=== PATIENT | male | born 1945 | race Caucasian/White ===

== ENCOUNTER 2019-03-26 16:06 | Inpatient (IN) | payer MEDICARE, OTHER, SELFPAY ==
[2019-03-26 16:06] VITALS: BP 137/66; PULSE 76; RESP 16; TEMP 36.6; O2SAT 97; BMI 28.8
--- NOTE | 2019-03-26 18:05 | CT_ITS ---
STUDY: CT PELVIS WITH CONTRAST REASON FOR EXAM: Male, 73 years old. Penile swelling and redness for 3 days with history of bladder cancer and urostomy RADIATION DOSAGE (If Supplied By Facility): CTDIvol = ( 21.16 ) mGy, DLP = ( 882.41 ) mGycm TECHNIQUE: Transaxial imaging of the pelvis was performed without oral contrast. 100 IV Isovue 370 was administered intravenously. Individualized dose optimization techniques were used for this CT. COMPARISON: None. FINDINGS: Cystectomy. Bilateral hip prostheses. Left lower quadrant colostomy. Right lower quadrant urostomy. Multiple postoperative changes involving the colon. Pelvic clips. Beam hardening artifact related to hip prostheses obscures detail in the lower pelvis. Intrascrotal fluid is visible on the right. Soft tissue induration is noted involving the lower anterior abdominal wall extending to the superior surface of the penile urethra and into the more distal penile soft tissues as best seen on sagittal image 80. This could represent cellulitis. Evaluation for abscess is very limited without IV contrast. Given that limitation, an abscess cannot be excluded involving the midline anterior pelvic wall above the penis as best seen on sagittal image 72, coronal image 49 and axial image 81, measuring approximately 2.5 x 2.[address]/Pelvis WITH IV Contrast IMPRESSION: CT findings suggest cellulitis in the lower anterior pelvic wall extending to the penis. An abscess cannot be excluded in the midline anterior pelvic wall above the penis as described. Electronically Signed: Kareem Trujillo MD at 20:04 EDT Tel , Service support ,
[2019-03-26 19:10] LABS: Absolute Lymphocyte Count 1.26 X10^3/ul (0.83-4.51); Absolute Neutrophil Count 6.4 X10^3/uL (2.0-7.7); Basophil# 0.01 X10^3/uL; Basophil% 0.1 % (0-1); Eosinophil# 0.13 X10^3/uL; Eosinophils% 1.5 % (0-5); Hematocrit 38.7 % (40-54); Hemoglobin 12.5 g/dl (13.0-16.5); Lymphocyte # 1.26 X10^3/ul (4.0); Lymphocyte % 14.7 % (19-41); Mean Corp Hgb Conc 32.3 g/gl (32-36); Mean Corpuscular Hgb 28.1 pg (27.0-32.0); Mean Platelet Vol. 10.1 fl (6.2-12.0); Monocyte# 0.74 X10^3/uL; Monocyte% 8.6 % (0-10); Neutrophil # 6.44 X10^3/uL (2.7-7.7); Neutrophil % 74.9 % (47-70); Platelet Count 138 K/mm3 (150-450); RBC Distribution Width CV 15.2 % (11.6-14.6); RBC Distribution Width SD 49.2 fl (35.1-43.9); Red Blood Count 4.45 M/mm3 (4.6-6.2); White Blood Count 8.6 K/mm3 (4.4-11.0)
[2019-03-26 19:11] LABS: POSITIVE COUNT NO; POSITIVE DIFFERENTIAL NO; POSITIVE MORPHOLOGY NO
[2019-03-26 19:19] LABS: Anion Gap 3 (5-15); BUN 19 mg/dL (7-18); BUN/Creat Ratio 14.4 RATIO (10-20); Calcium,Total 8.9 mg/dL (8.5-10.1); Chloride 108 mmol/L (98-107); Creatinine, Serum 1.32 mg/dL (0.70-1.30); EST Glomerular Filtration Rate 57 mL/min (>60); Est Glom Filt Rate - Afr Amer 69 mL/min (>60); Estimated Creatinine Clearance 49.66 ml/min; Glucose 148 mg/dL (74-106); Potassium 3.6 mmol/L (3.5-5.1); Sodium Level 139 mmol/L (136-145)
[2019-03-26] MEDS: Morphine 4 MG/ML Syringe IV (19:34)
[2019-03-26 19:36] VITALS: PULSE 72; RESP 16; O2SAT 98
--- NOTE | 2019-03-26 20:39 | ED.VIS.GEN ---
History of Present Illness Chief Complaint: Male Pain/Injury Detail of Chief Complaint: lower abdominal and penis pain/redness Informant: Patient, Family Onset: Days - 3-4 Context: Gradual Onset Timing: Continuous Quality: sore/painful, red Location: lower abd wall and into penis, right hemiscrotum Current Severity: Moderate Maximum Severity: Moderate Worsened by: palpation/touching affected area Relieved by: leaving it alone Narrative: Patient states he has been developing pain and redness below a chronic wound in his lower abdominal wall, it has progressed down to the proximal aspect of his penis and right hemiscrotum. He has had no fevers or systemic symptoms although he does admit he has felt fatigued lately but has also recently moved here from [place] and has been doing a lot of work, lifting and moving boxes, etc. He denies any nausea, vomiting, diarrhea, fevers, urinary symptoms. 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 He has had a surgeon at [facility] try and repair this unsuccessfully, named Dr. Lee. This wound is at the caudal aspect of the surgical wound that was a result of a cystectomy for bladder cancer and failed medical treatment, which resulted in a urostomy and a colostomy. Patient states at one point his colostomy was attempted to be reversed, but it was unsuccessful and so he remains with it now. He has had no issues with the stone was recently. He denies any problems urinating. Prior similar symptoms: Yes - Past Medical History (1) History of bladder cancer Status: Chronic (2) History of stroke Status: Chronic Comment: 1996, 2007, 2012 (3) Hyperlipemia Status: Chronic (4) Hypertension Status: Chronic Past Medical History - Allergies and Home Meds Allergies/Adverse Reactions: Allergies azithromycin [From Zithromax] Allergy (Verified 03/26/19 18:09) Unknown ciprofloxacin [From Cipro] Allergy (Verified 03/26/19 18:09) Unknown Primary Care Physician: Asia Peres MD [Primary Care Provider] - Surgical History: - - Cystectomy, urostomy, colostomy Lives: With Family Smoking Status: Former smoker Review of Systems General: Denies: Chills, Fever, Sweats Eyes: Denies: Visual changes - bilaterally, Diplopia ENT: Denies: Rhinorrhea, Sore throat Cardiovascular: Denies: Chest pain, Palpitations Respiratory: Denies: Dyspnea, Cough, Dyspnea on exertion Gastrointestinal: Reports: Abdominal pain. Denies: Nausea, Vomiting, Diarrhea, Melena, Hematochezia Genitourinary: Reports: - - Pain and proximal penis. See HPI.. Denies: Dysuria, Hematuria, Frequency Musculoskeletal: Denies: Back pain, Extremity Pain Skin: Reports: Abscess - Possibly; small amount of drainage from his wound recently, Wounds Neurological: Denies: Headache, Weakness, Numbness Physical Exam Vital Signs/Narrative: Vital Signs Pulse Resp Pulse Ox 03/26/19 19:36 72 16 98 Inital Vital Signs reviewed: Yes General: Well nourished, Well developed, No Acute Distress Head: Normocephalic, Atraumatic Eyes: Perrl, EOMI ENT: Moist mucous membranes, No rhinorrhea Neck: Supple, Nontender Cardiovascular: Regular rate, Regular rhythm, No murmurs Respiratory: No distress, CTA bilaterally, Chest nontender Abdomen: Soft, Nondistended, Normal bowel sounds, Tender - At cellulitic area around right lower abdominal wall wound but mostly caudal to this extending to the proximal penile shaft. No discharge expressible from abdominal wound but very tender. It is at the caudal aspect of a otherwise well-healed surgical incision. : - - See below. No testicular tenderness. Uncircumscised penis, glans normal. Back: Nontender, Normal Inspection Extremities: Nontender, No edema Skin: Rash - As above, cellulitis lower abdominal wall. It extends to the proximal aspect of the right hemiscrotum and penile shaft, which are otherwise unremarkable. No testicular tenderness. Cellulitic and indurated, no clear fluctuance or pointing. No discharge expressible from the abdominal wall wound. Neurological: Alert, Oriented x3, Cranial nerves II-XII grossly intact, Normal Strength, Normal Sensation Psychological: Normal affect, Normal Mood Diagnostic/Tx/Re-eval Impressions Pelvis CT 03/26/19 18:05 IMPRESSION: CT findings suggest cellulitis in the lower anterior pelvic wall extending to the penis. An abscess cannot be excluded in the midline anterior pelvic wall above the penis as described. Electronically Signed: Kareem Trujillo MD at 20:04 EDT Tel , Service support , 03/26/19 18:05 CT Pel [Pelvis WITH IV Contrast] [CT] Stat Laboratory Results 03/26/19 03/26/19 19:00 19:00 WBC 8.6 RBC 4.45 L Hgb 12.5 L Hct 38.7 L MCV 87.0 MCH 28.1 MCHC 32.3 RDW 15.2 H RDW Differential 49.2 H Plt Count 138 L MPV 10.1 Immature Gran % (Auto) 0.200 Neut % (Auto) 74.9 H Lymph % (Auto) 14.7 L [place] % (Auto) 8.6 Eos % (Auto) 1.5 Baso % (Auto) 0.1 Absolute Neuts (auto) 6.4 Absolute Lymphs (auto) 1.26 Total Counted Not Reportable Sodium 139 Potassium 3.6 Chloride 108 H Carbon Dioxide 28.0 Anion Gap 3 L BUN 19 H Creatinine 1.32 H Estim Creat Clear Calc 49.66 Est GFR (MDRD) Af Amer 69 Est GFR (MDRD) Non-Af 57 L BUN/Creatinine Ratio 14.4 Glucose 148 H Calcium 8.9 - Medical Decision Making Other than chronic renal insufficiency, labs are unremarkable. Vancomycin dose was given. Patient is clinically not septic. I obtained an IV contrasted CT of the pelvis to evaluate for abscess, according to radiology interpretation there is possible early abscess and they were unable to rule that out. I discussed with the patient really wanted to go home, that I advised IV antibiotics, admission, surgical consultation in the morning, he agrees. Discussed with Dr. Michele who thinks that is a reasonable plan. Admitted to [facility]. Of note, we attempted to discuss with the surgeon from [facility], we were not able to get a hold of anyone there. We were attempting to obtain more information about the possibility of this being a fistula, there is no obvious open communication at this time, and CT did not show any obvious evidence of a fistula. ED Disposition - Plan for ED Patient: Disposition: Acute Care Hospital [facility] Diagnosis: Cellulitis of right abdominal wall Referrals: Asia Peres MD [Primary Care Provider] -
[2019-03-26 22:12] VITALS: BP 135/66; PULSE 66; RESP 18; O2SAT 97
--- NOTE | 2019-03-26 22:36 | PCM.HP.STD ---
Problem List (1) History of urostomy Status: Chronic (2) Status post colostomy Status: Chronic (3) Cellulitis of right abdominal wall Status: Acute (4) History of bladder cancer Status: Chronic (5) Hyperlipemia Status: Chronic (6) Hypertension Status: Chronic (7) History of stroke Status: Chronic Comment: 1996, 2007, 2012 History of Present Illness Date of Admission: 03/26/19 Chief Complaint: Lower abdominal pain, swelling and redness. The patient is a 73 year old M with complicated past medical history presented to the emergency room because of lower abdominal pain, increasing redness and swelling of the lower part of his abdomen as well as suprapubic region. Symptoms started around 3 to 4 days ago with increasing redness of the lower abdomen and suprapubic region, associated with swelling and abdominal pain, redness extended down to the penis and without aggravating or relieving factors. Also, he complains of vague lower abdominal and suprapubic pain, 5-6 out of 10 in severity, goes down to the both groins and the penis, no aggravating or relieving factors and no other associated symptoms. Patient denies fever or chills. He denied chest pain or shortness of breath. He did have a history of bladder cancer status post surgery, colostomy and urostomy and apparently, his postoperative long course complicated by multiple complications including infections, abscesses as well as fistula according to the patient and his . Patient had multiple lower abdominal surgeries after his bladder cancer removed and his first surgery was done in [place] years ago. In the emergency department, his vital signs were stable, afebrile. His routine blood work was remarkable for hemoglobin of 12.5 g/dL, platelet count is 138,000, creatinine is 1.32. CT scan abdomen and pelvis with contrast revealed cellulitis of the lower anterior abdominal and pelvic wall extending to the penis and abscess cannot be ruled out. He is being admitted for acute lower anterior abdominal/pelvic wall cellulitis with probable abscess. Past Medical History Past Medical History (Chronic Problems): Chronic Problems (Last Updated 03/17/19 @ 08:50 by India Velásquez) Paroxysmal atrial fibrillation (Chronic) History of urostomy (Chronic) Status post colostomy (Chronic) History of bladder cancer (Chronic) Hyperlipemia (Chronic) Hypertension (Chronic) History of stroke (Chronic) 1996, 20072012 Hearing loss (Chronic) Medical History: Medical History (Last Updated 03/17/19 @ 08:50 by India Velásquez) History of bladder cancer (Chronic) Z85.51 Hyperlipemia (Chronic) E78.5 Hypertension (Chronic) I10 History of stroke (Chronic) Z86.73 1996, 2007, 2012 Hearing loss (Chronic) H91.90 Allergies azithromycin [From Zithromax] Allergy (Verified 03/26/19 18:09) Unknown ciprofloxacin [From Cipro] Allergy (Verified 03/26/19 18:09) Unknown Home Medications: Ambulatory Orders Medication Instructions Recorded atorvastatin 20 mg tablet 20 mg PO DAILY 03/17/19 metoprolol succinate ER 50 mg 50 mg PO DAILY 03/17/19 tablet,extended release 24 hr multivitamin tablet 1 tab PO DAILY 03/17/19 Warfarin Sodium [Jantoven] 6 mg PO DAILY 03/26/19 Surgical History: Surgical History (Last Updated 03/17/19 @ 08:50 by India Velásquez) History of bilateral hip replacements Z96.643 2014 History of shoulder surgery Z98.890 2012 Status post colostomy Z93.3 still not healed Surgical History: - - Cystectomy, urostomy, colostomy Lives: Spouse/ Significant Other Smoking Status: Former smoker Alcohol: None Drugs: None - *Family History Maternal Family History: Family History (Last Updated 03/17/19 @ 08:59 by India Velásquez) Brother Heart disease History Items: No pertinent history Paternal Family History: Family History (Last Updated 03/17/19 @ 08:59 by India Velásquez) Brother Heart disease History Items: No pertinent history Review of Systems Constitutional: Denies: Anorexia, Chills, Fever, Weakness Eyes: Denies: Blurred vision, Conjunctivae Inflammation, Double vision, Drainage, Redness HEENT: Denies: Difficulty Hearing, Ear Pain, Eye Pain, Nasal Congestion, Sore Throat Cardiovascular: Denies: Chest Pain, Claudication, Chest Pressure, Edema, Light Headedness, Palpitations, Syncope Respiratory: Denies: Cough, Pleuritic Pain, Shortness of Breath, Sputum production, Wheezing Gastrointestinal: Reports: Abdominal Pain. Denies: Constipation, Diarrhea, Nausea, Vomiting Genitourinary: Denies: Dysuria, Frequency, Hematuria Musculoskeletal: Denies: Arm Pain, Back Pain, Foot Pain Skin: Denies: Dryness, Rash Neurological: Denies: Balance problems, Double vision, Change in Speech, Slurred speech, Confusion, Incoordination, Numbness Psychiatric: Denies: Anxiety, Depression Endocrine: Denies: Change in Body Habitus, Polydipsia, Polyuria VTE Information - Inpt Only VTE Present on Admission: No VTE Mechan Device Prophylaxis: None VTE Pharm Prophylaxis ordered?: No Patient Problems: Active and Suspected Problems (Last Updated 03/17/19 @ 08:50 by [place] Velásquez) Cellulitis of right abdominal wall (Acute) - Physical Exam General: Alert, Oriented x3, Cooperative, No apparent distress HEENT: Atraumatic, PERRLA, EOMI, Normocephalic Oral: Moist Mucosa, No Gingival or Mucosal Lesions/ Ulcerations Neck: Supple, No JVD, Negative Carotid Bruits, Trachea Midline, Thyroid Normal Size and Texture Lungs: Clear to auscultation, Normal air movement, No rhonchi, No wheeze, No rales, Diminished Cardiovascular: Regular rate, Regular Rhythm, Normal S1, Normal S2, PMI Normal Abdomen: Bowel Sounds Present, Non-Distended, No Hepato-splenomegaly, Tender - Lower abdomen tenderness. Erythema and edema of the lower abdomen and pelvic region/suprapubic region. Colostomy and urostomy bags in place. Extremities: No clubbing, No cyanosis, No edema Skin: No rashes, Ulcer/ Wound Lymphatic: No Cervical, Supraclavicular, or Inguinal Adenopathy Neurological: Cranial nerves II-XII grossly intact, Motor Exam 5/5 strength throughout Psych/Mental Status: Normal Affect, Appropriate, Alert and oriented to time, place, person, mood and affect Vital Signs Temp Pulse Resp BP Pulse Ox 97.8 F 66 18 135/66 H 97 03/26/19 16:06 03/26/19 22:12 03/26/19 22:12 03/26/19 22:12 03/26/19 22:12 Oxygen Delivery Method Room Air Weight: 189 lb 9.561 oz Body Mass Index (BMI) 28.8 Laboratory Tests Past 24 Hrs 03/26/19 03/26/19 19:00 19:00 WBC 8.6 RBC 4.45 L Hgb 12.5 L Hct 38.7 L MCV 87.0 MCH 28.1 MCHC 32.3 RDW 15.2 H RDW Differential 49.2 H Plt Count 138 L MPV 10.1 Immature Gran % (Auto) 0.200 Neut % (Auto) 74.9 H Lymph % (Auto) 14.7 L [place] % (Auto) 8.6 Eos % (Auto) 1.5 Baso % (Auto) 0.1 Absolute Neuts (auto) 6.4 Absolute Lymphs (auto) 1.26 Total Counted Not Reportable Sodium 139 Potassium 3.6 Chloride 108 H Carbon Dioxide 28.0 Anion Gap 3 L BUN 19 H Creatinine 1.32 H Estim Creat Clear Calc 49.66 Est GFR (MDRD) Af Amer 69 Est GFR (MDRD) Non-Af 57 L BUN/Creatinine Ratio 14.4 Glucose 148 H Calcium 8.9 Clinical Impression(s) from Imaging Studies Pelvis CT 03/26/19 18:05 IMPRESSION: CT findings suggest cellulitis in the lower anterior pelvic wall extending to the penis. An abscess cannot be excluded in the midline anterior pelvic wall above the penis as described. Electronically Signed: Kareem Trujillo MD at 20:04 EDT Tel , Service support , Assessment/Plan All Active Problems (Last Updated 03/17/19 @ 08:50 by [place] Velásquez) Cellulitis of right abdominal wall (Acute) This is a 73 years old male patient presented to the emergency room because of lower abdominal/suprapubic redness and swelling, found to have findings consistent with acute lower abdominal wall/pelvic wall cellulitis with probable abscess and he is being admitted for treatment. 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 At this time, his vital signs are stable, afebrile. No leukocytosis. CT scan abdomen and pelvis reviewed as above. Plan: Admit to MedSurg floor, IV fluids, IV morphine PRN, IV antiemetics, start IV Flagyl and Zosyn, general surgery consult, repeat CBC and BMP tomorrow morning, PT OT evaluation and treatment. #2 history of bladder cancer: Status post surgery, multiple postoperative complications including recurrent infections, abscesses and fistula, status post multiple surgeries. Status post colostomy and urostomy. Urostomy and colostomy are functioning. Plan as above, general surgery consult. #3 renal insufficiency: Admission BUN is 19, creatinine is 1.32. It is not clear if this is acute or chronic. No previous blood work to compare. Plan: IV fluids, input output chart, repeat BMP tomorrow morning, obtain records. #4 history of paroxysmal atrial fibrillation: At this time, is in sinus rhythm, rate is controlled. Continue metoprolol for rate control and Coumadin for anticoagulation. Will check INR. #5 hypertension: Blood pressure stable, continue metoprolol. #6 hyperlipidemia: Continue statins. #7 history of strokes: Continue statins and Coumadin. #8 DVT prophylaxis: On Coumadin, will check INR. This note was generated with [employer] dictation software. It may contain incorrect words, spelling, and punctuation that were not noted in checking the note before signing. Code Visit Inpatient E&M: 72279 Init Hosp L3
[2019-03-26 22:37] VITALS: BMI 28.5
[2019-03-26 23:52] VITALS: BP 145/61; PULSE 74; RESP 17; TEMP 37.2; O2SAT 98
[2019-03-26 23:54] LABS: International Normalized Ratio 2.1; Prothrombin Time (Protime)PT. 23.1 SECONDS (11.7-14.9)
[2019-03-27] MEDS: metroNIDAZOLE 500 MG/100 ML BAG 100 MG IV ×3 (00:21→15:02)
[2019-03-27] MEDS: 0.9% Normal Saline 1,000 ML 100 ML IV ×2 (01:37→12:17)
[2019-03-27 05:31] LABS: Absolute Neutrophil Count 4.6 X10^3/uL (2.0-7.7); Basophil# 0.01 X10^3/uL; Basophil% 0.1 % (0-1); Eosinophils% 2.8 % (0-5); Hematocrit 37.6 % (40-54); Hemoglobin 12.3 g/dl (13.0-16.5); Mean Corp Hgb Conc 32.7 g/gl (32-36); Mean Corpuscular Hgb 28.3 pg (27.0-32.0); Mean Corpuscular Volume 86.4 fL (80-94); Mean Platelet Vol. 10.2 fl (6.2-12.0); Monocyte# 0.82 X10^3/uL; Monocyte% 11.5 % (0-10); Neutrophil % 64.5 % (47-70); Platelet Count 133 K/mm3 (150-450); RBC Distribution Width CV 15.1 % (11.6-14.6); RBC Distribution Width SD 48.3 fl (35.1-43.9); Red Blood Count 4.35 M/mm3 (4.6-6.2); White Blood Count 7.1 K/mm3 (4.4-11.0)
[2019-03-27 05:38] LABS: POSITIVE COUNT NO; POSITIVE DIFFERENTIAL NO; POSITIVE MORPHOLOGY NO
[2019-03-27 05:44] VITALS: BP 142/55; PULSE 67; RESP 16; TEMP 37.2; O2SAT 95
[2019-03-27 05:55] LABS: ALB/GLOB Ratio 0.9 RATIO (0.9-2.4); AST(SGOT) 19 U/L (15-37); Alanine Aminotransfer ALT/SGPT 16 U/L (16-61); Albumin, Serum 2.9 g/dL (3.2-5.0); Alkaline Phosphatase 53 U/L (45-117); Anion Gap 8 (5-15); BUN 14 mg/dL (7-18); BUN/Creat Ratio 12.7 RATIO (10-20); Calcium,Total 8.3 mg/dL (8.5-10.1); Chloride 108 mmol/L (98-107); EST Glomerular Filtration Rate 70 mL/min (>60); Est Glom Filt Rate - Afr Amer 85 mL/min (>60); Estimated Creatinine Clearance 59.59 ml/min; Globulin 3.4 g/dL (2.2-4.2); Glucose 87 mg/dL (74-106); Potassium 3.6 mmol/L (3.5-5.1); Protein, Total 6.3 g/dL (6.4-8.2); Sodium Level 141 mmol/L (136-145)
[2019-03-27] MEDS: Acetaminophen 325 MG Tablet 650 MG PO (06:57)
[2019-03-27 07:18] VITALS: O2SAT 96
--- NOTE | 2019-03-27 07:22 | CON.PCM_ITS ---
Reason for Consult Date of Consultation: 03/27/19 Reason for Consultation: pelvic abscess/infected mesh, r/o fistula History of Present Illness: The patient is a 73 year old M with a complex medical history presents with abdominal wall cellulitis and purulent drainage. The patient is a 73-year-old male who was diagnosed with bladder cancer. In July 2016, the patient underwent surgical procedure in [facility]. he underwent prostatectomy with ileal conduit. This was apparently complicated I a sigmoid colon injury for which she had a colostomy with Amado's pouch performed. The patient states he was discharged to home on 5 days postoperatively and had prior to discharge had partial dehiscence of his skin closed with what sounds like Steri-Strips. At home the patient states he had further opening of the wound and had to go back to the hospital. He then s tates he was taken back to the operating suite. He understands mesh was placed in the incision at that time. Hospital records from [facility] where he been recently treated for wound care discusses what sounds possibly like a fistula which apparently closed after some time. In May 2017 he underwent attempted colostomy takedown/reversal but then again had drainage and had re-creation of colostomy in [place] in July [address] Augie Lerma. The patient had a persistent lower midline fistula which was treated in the wound center. The patient underwent colonoscopy through the stoma and sigmoidoscopy on January 06, 2018 which demonstrated no specific colonic abnormalities. The colon length was judged to be 65 cm from stoma to cecum?. The Amado's pouch was noted to be 15 cm long there was an area of granulation tissue at the apex but no obvious tracking was noted. With extensive wound care and occasional drainage from his fistula tract, wound exploration was performed by Dr. Elmo Cole in November 03, 2018. He had excision of a fistula track but this did not seem to track into the peritoneal cavity. The superficial track was excised and closed. his most recent visit to the wound Center in [facility] was around early December, cellulitis on the lower abdomen near the base of the penis, a CT scan of the abdomen and pelvis was obtained. This was somewhat challenging due to bilateral hip replacement but cellulitis with a probable abscess was noted. my review the CT scan images demonstrate the area of cellulitis. It's difficult to assess whether there is an abscess again due to the hip prosthesis. There appears to me to be a layer of material just below the rectus muscle which appears to be consistent with mesh. the patient was not clinically septic. His white count was 7.1.he remained afebrile. I was consulted. Upon visiting the patient when he was purulent material draining from his lower wound which was rather copious. After evaluating the patient, I ordered a CT fistulogram to be obtained. an 8 [place] Tsai catheter was placed in the fistulous tract and contrast media was injected. This demonstrated the fistula tract tracking into a collection located in the abdominal wall which then communicated directly to the rectal stump. the patient notes a history of atrial fibrillation and 3 prior CVAs. His medic ation list includes atorvastatin, metoprolol, multivitamin and warfarin. Past Medical History Past Medical History (Chronic Problems): Chronic Problems (Last Updated 03/17/19 @ 08:50 by India Velásquez) Paroxysmal atrial fibrillation (Chronic) History of urostomy (Chronic) Status post colostomy (Chronic) History of bladder cancer (Chronic) Hyperlipemia (Chronic) Hypertension (Chronic) History of stroke (Chronic) 1996, 2007, 2012 Hearing loss (Chronic) Medical History: Medical History (Last Updated 03/17/19 @ 08:50 by JavierMOAECkristin Velásquez) History of bladder cancer (Chronic) Z85.51 Hyperlipemia (Chronic) E78.5 Hypertension (Chronic) I10 History of stroke (Chronic) Z86.73 1996, 2007, 2012 Hearing loss (Chronic) H91.90 Allergies azithromycin [From Zithromax] Allergy (Verified 03/26/19 18:09) Unknown ciprofloxacin [From Cipro] Allergy (Verified 03/26/19 18:09) Unknown Home Medications: Ambulatory Orders Medication Instructions Recorded atorvastatin 20 mg tablet 20 mg PO DAILY 03/17/19 metoprolol succinate ER 50 mg 50 mg PO DAILY 03/17/19 tablet,extended release 24 hr multivitamin tablet 1 tab PO DAILY 03/17/19 Warfarin Sodium [Jantoven] 6 mg PO DAILY 03/26/19 Surgical History: Surgical History (Last Updated 03/17/19 @ 08:50 by India Velásquez) History of bilateral hip replacements Z96.643 2013 History of shoulder surgery Z98.890 2011 Status post colostomy Z93.3 still not healed Surgical History: - - Cystectomy, urostomy, colostomy Lives: Spouse/ Significant Other Smoking Status: Former smoker Tobacco Use: Chew Alcohol: None Drugs: None - *Family History Maternal Family History: Family History (Last Updated 03/17/19 @ 08:59 by India Velásquez) Brother Heart disease History Items: No pertinent history Paternal Family History: Family History (Last Updated 03/17/19 @ 08:59 by India Velásquez) Brother Heart disease History Items: No pertinent history Review of Systems Constitutional: Denies: Chills, Fever, Weight Change HEENT: Denies: Head Aches, Sinus Congestion, Sinus Drainage Cardiovascular: Denies: Chest Pain, Palpitations Respiratory: Denies: Cough, Shortness of breath at rest, Sputum production Gastrointestinal: Denies: Abdominal Pain, Nausea, Vomiting Genitourinary: Denies: Dysuria Musculoskeletal: Denies: Joint Pain, Joint Tenderness Skin: Denies: Rash, Wounds Psychiatric: Denies: Anxiety, Depression, Homicidal Ideations, Suicidal Idea tions Patient Problems: Active and Suspected Problems (Last Updated 03/17/19 @ 08:50 by India Velásquez) Fistula (Acute) Cellulitis of right abdominal wall (Acute) - Physical Exam General: Alert, Oriented x3 Lungs: Clear to auscultation, Normal air movement Cardiovascular: Regular rate, Regular Rhythm Abdomen: Bowel Sounds Present, Soft, - - right lower quadrant urostomy with urine draining. Left lower quadrant colostomy with stool draining. Lower midline incision which appears to have partial dehiscence along the lower aspect and a sinus track with purulent material draining. Vital Signs Temp Pulse Resp BP Pulse Ox 99 F 67 16 142/55 H 95 03/27/19 05:44 03/27/19 05:44 03/27/19 05:44 03/27/19 05:44 03/27/19 05:44 Oxygen Delivery Method Room Air Weight: 85 kg Body Mass Index (BMI) 28.5 Intake and Output for Last 24 Hours 03/25/19 03/26/19 03/27/19 23:59 23:59 23:59 Intake Total 911 / 911 Output Total 625 / 625 Balance 286 / 286 Laboratory Tests Past 24 Hrs 03/26/19 03/26/19 03/26/19 19:00 19:00 19:00 WBC 8.6 RBC 4.45 L Hgb 12.5 L Hct 38.7 L MCV 87.0 MCH 28.1 MCHC 32.3 RDW 15.2 H RDW Differential 49.2 H Plt Count 138 L MPV 10.1 Immature Gran % (Auto) 0.200 Neut % (Auto) 74.9 H Lymph % (Auto) 14.7 L [place] % (Auto) 8.6 Eos % (Auto) 1.5 Baso % (Auto) 0.1 Absolute Neuts (auto) 6.4 Absolute Lymphs (auto) 1.26 Total Counted Not Reportable PT 23.1 H INR 2.1 Sodium 139 Potassium 3.6 Chloride 108 H Carbon Dioxide 28.0 Anion Gap 3 L BUN 19 H Creatinine 1.32 H Estim Creat Clear Calc 49.66 Est GFR (MDRD) Af Amer 69 Est GFR (MDRD) Non-Af 57 L BUN/Creatinine Ratio 14.4 Glucose 148 H Calcium 8.9 Total Bilirubin AST ALT Alkaline Phosphatase Total Protein Albumin Globulin Albumin/Globulin Ratio 03/27/19 03/27/19 05:10 05:10 WBC 7.1 RBC 4.35 L Hgb 12.3 L Hct 37.6 L MCV 86.4 MCH 28.3 MCHC 32.7 RDW 15.1 H RDW Differential 48.3 H Plt Count 133 L MPV 10.2 Immature Gran % (Auto) 0.100 Neut % (Auto) 64.5 Lymph % (Auto) 21.0 [place] % (Auto) 11.5 H Eos % (Auto) 2.8 Baso % (Auto) 0.1 Absolute Neuts (auto) 4.6 Absolute Lymphs (auto) 1.50 Total Counted Not Reportable PT INR Sodium 141 Potassium 3.6 Chloride 108 H Carbon Dioxide 25.0 Anion Gap 8 BUN 14 Creatinine 1.10 Estim Creat Clear Calc 59.59 Est GFR (MDRD) Af Amer 85 Est GFR (MDRD) Non-Af 70 BUN/Creatinine Ratio 12.7 Glucose 87 Calcium 8.3 L Total Bilirubin 1.00 AST 19 ALT 16 Alkaline Phosphatase 53 Total Protein 6.3 L Albumin 2.9 L Globulin 3.4 Albumin/Globulin Ratio 0.9 Assessment/Plan All Active Problems (Last Updated 03/17/19 @ 08:50 by India Velásquez) Fistula (Acute) Cellulitis of right abdominal wall (Acute) complex surgical history following complicated radical prostatectomy with creation take down re-creation of colostomy following bowel injury with likely fistula, questionable history of dehiscence questionable mesh placement, abscess with fistula communication between abdominal wall and rectal Romie stump. Would plan for antibiotics and local control at this time. Repeat scan an possibly place drain via CT scan if not well controlled on Saturday. I spoke with Dr. John Mullins, logging tractor operator [facility] colorectal. Will consider discharge when stable and plan for eventual reoperation with [facility] speciality group at [facility] main.
--- NOTE | 2019-03-27 07:23 | CT_ITS ---
An 8 Arabic Tsai catheter was introduced into the fistulous opening in the suprapubic area the balloon was inflated with saline. Contrast media was injected the catheter was secured. CT scan was immediately done. The fistula is connected into a collection greater collection behind the abdominal wall which is is communicating directly with the rectal stump. Dr Michele was informed about this finding at 1:40pm 03/27/2019. Electronically Signed: Cornelio Montalvo, at 13:49 EDT Tel , Service support , CT/Abscess/Fistula/Sinus Tract
[2019-03-27] MEDS: 0.9% NaCl Peripheral Flush Adult/Peds IV ×2 (08:39→17:52)
--- NOTE | 2019-03-27 08:45 | NURSING ---
sl and down to radiology via bed
--- NOTE | 2019-03-27 09:19 | PCA ---
pt off floor
[2019-03-27 09:34] VITALS: BP 124/57; PULSE 60; RESP 16; TEMP 36.6; O2SAT 96
[2019-03-27] MEDS: Ensure Clear 120 ML Liquid PO ×3 (09:55→17:41)
[2019-03-27] MEDS: Morphine 2 MG/ML Syringe IV ×3 (09:55→22:23)
--- NOTE | 2019-03-27 09:59 | NURSING ---
LUISANA HELD AT THIS TIME D/T HR 59-60
--- NOTE | 2019-03-27 10:46 | CASEMGMT ---
RN CM Assessment Presentation: Abd wall cellulitis, abcess.. Hx of Bladder cancer; colostomy and urostomy, multiple surgical history Intro role of CM and purpose of RN CM assessment to patient and his . Pt is awake, alert and able to participate in assessment. Demographics, PCP and Pharmacy verified. pt recently moved to [place], [facility] he is independent and has no care needs at this time. PCP: Dr. Peres Specialists: Dr. Micheel Preferred Pharmacy: [place], [place]- entered into chart Insurance: [facility] Prescription Benefit: yes LNOK: , Agnes Patel Living Arrangements: Lives independently with . Denies needs at this time. Transportation: Drives DME: walker, cane-does not use. Pt has DME company for colostomy/urostomy supplies. [facility]: none Patient DC goals: Home DC PLAN: Home. No needs identified @ this time. Delmar SANDERSN RN ACM
[2019-03-27 12:23] VITALS: PULSE 56
--- NOTE | 2019-03-27 12:24 | NURSING ---
PT SAT IN RECLINER FOR APPROX 30 MINUTES BEFORE RETURNING TO BED
--- NOTE | 2019-03-27 13:00 | PN_ITS ---
Patient Problems: Active and Suspected Problems (Last Updated 03/17/19 @ 08:50 by India Velásquez) Cellulitis of right abdominal wall (Acute) Subjective: Seen and examined. Patient had multiple surgeries for CA bladder. First he had cystectomy in 2016 which was complicated with bowel injury for which colostomy was done. After that, colostomy was reversed but later on complicated with fistula for which colostomy was created in left lower quadrant. Patient has urostomy in the right lower quadrant. There is midline pelvic scar through which serous drainage present. Patient complain of pelvic pain anteriorly around this sinus/fistula for 3 to 4 days she is getting worse with swelling and redness. No fever or chills. No tachycardia. Vitals/I&O's: Vital Signs Temp Pulse Resp BP Pulse Ox 97.9 F 56 L 16 124/57 H 96 03/27/19 09:34 03/27/19 12:23 03/27/19 09:34 03/27/19 09:34 03/27/19 09:34 Oxygen Delivery Method Room Air Weight: 187 lb 6.287 oz Body Mass Index (BMI) 28.5 Intake and Output for Last 24 Hours 03/25/19 03/26/19 03/27/19 23:59 23:59 23:59 Intake Total 2013 Output Total 1075 / 1075 Balance 939 / 939 General: Alert, Oriented x3, Cooperative HEENT: Atraumatic, PERRLA, EOMI, Normocephalic Neck: Supple, No JVD, Negative Carotid Bruits Lungs: Clear to auscultation, Diminished Cardiovascular: Regular rate, Regular Rhythm, Normal S1, Normal S2, No murmurs Abdomen: Bowel Sounds Present, Soft, Tender - Tenderness present on pelvic area anteriorly. Swelling, edema and erythema of anterior pelvic wall extending to penis and groin region. Serous fluid drainage from opening in mid midline in anterior pelvic, most probably is sinus/fistula Extremities: No edema, Capillary Refill Less than 3 Seconds Skin: No rashes, No breakdown Musculoskeletal: No Tenderness to Palpation of Joints or Extremities, Arthritic Changes Neurological: Cranial nerves II-XII grossly intact, Deep Tendon Reflexes 2+/4 and Symmetrical, Neuro grossly intact, Motor Exam 5/5 strength throughout Psych/Mental Status: Normal Affect, Appropriate Laboratory Results 03/26/19 19:00: WBC 8.6, RBC 4.45 L, Hgb 12.5 L, Hct 38.7 L, MCV 87.0, MCH 28.1, MCHC 32.3, RDW 15.2 H, RDW Differential 49.2 H, Plt Count 138 L, MPV 10.1, Immature Gran % (Auto) 0.200, Neut % (Auto) 74.9 H, Lymph % (Auto) 14.7 L, Anson % (Auto) 8.6, Eos % (Auto) 1.5, Baso % (Auto) 0.1, Absolute Neuts (auto) 6.4, Absolute Lymphs (auto) 1.26, Total Counted Not Reportable 03/26/19 19:00: Sodium 139, Potassium 3.6, Chloride 108 H, Carbon Dioxide 28.0, Anion Gap 3 L, BUN 19 H, Creatinine 1.32 H, Estim Creat Clear Calc 49.66, Est GFR (MDRD) Af Amer 69, Est GFR (MDRD) Non-Af 57 L, BUN/Creatinine Ratio 14.4, Glucose 148 H, Calcium 8.9 03/26/19 19:00: PT 23.1 H, INR 2.1 03/27/19 05:10: WBC 7.1, RBC 4.35 L, Hgb 12.3 L, Hct 37.6 L, MCV 86.4, MCH 28.3, MCHC 32.7, RDW 15.1 H, RDW Differential 48.3 H, Plt Count 133 L, MPV 10.2, Immature Gran % (Auto) 0.100, Neut % (Auto) 64.5, Lymph % (Auto) 21.0, Anson % (Auto) 11.5 H, Eos % (Auto) 2.8, Baso % (Auto) 0.1, Absolute Neuts (auto) 4.6, Absolute Lymphs (auto) 1.50, Total Counted Not Reportable 03/27/19 05:10: Sodium 141, Potassium 3.6, Chloride 108 H, Carbon Dioxide 25.0, Anion Gap 8, BUN 14, Creatinine 1.10, Estim Creat Clear Calc 59.59, Est GFR (MDRD) Af Amer 85, Est GFR (MDRD) Non-Af 70, BUN/Creatinine Ratio 12.7, Glucose 87, Calcium 8.3 L, Total Bilirubin 1.00, AST 19, ALT 16, Alkaline Phosphatase 53, Total Protein 6.3 L, Albumin 2.9 L, Globulin 3.4, Albumin/Globulin Ratio 0.9 Current Medications Acetaminophen (Tylenol) 650 mg PO Q6H PRN PRN PRN Reason: Mild Pain (1-3)/Temp > 100.7 F Last Admin: 03/27/19 06:57 Dose: 650 mg Documented by: Atorvastatin Calcium (Lipitor) 20 mg PO DAILY@2200 [facility] Sodium Chloride () 1,000 mls @ 100 mls/hr IV .Q10H [facility] Last Admin: 03/27/19 12:17 Dose: 100 mls/hr Documented by: Piperacillin Sod/Tazobactam (Sod 3.375 gm/ Sodium Chloride) 50 mls @ 12.5 mls/hr IV Q8 [facility] Last Admin: 03/27/19 06:48 Dose: 12.5 mls/hr Documented by: Metronidazole (Flagyl) 500 mg in 100 mls @ 100 mls/hr IV Q8 [facility] Last Admin: 03/27/19 05:35 Dose: 100 mls/hr Documented by: Metoprolol Succinate (Toprol Xl (Beta Jaylen)) 50 mg PO DAILY [facility] Last Admin: 03/27/19 12:23 Dose: Not Given Documented by: Morphine Sulfate () 1 - 2 mg IV Q3H PRN PRN PRN Reason: Severe pain (7-10/10) Last Admin: 03/27/19 09:55 Dose: 1 mg Documented by: Nutritional Formula (Lactose Free) (Ensure Clear) 120 ml PO TIDCM [facility] Last Admin: 03/27/19 12:17 Dose: 120 ml Documented by: Ondansetron HCl (Zofran) 4 mg IV Q8H PRN PRN PRN Reason: NAUSEA/VOMITING Sodium Chloride () 10 - 40 ml IV UD PRN PRN Reason: SALINE FLUSH Last Admin: 03/27/19 08:39 Dose: 10 ml Documented by: Warfarin Sodium (Coumadin (Pbkc)) 6 mg PO DAILY@1700 [facility] Medical Necessity - Tobacco Use Smoking Status: Former smoker Tobacco Use: Chew Assessment/Plan All Active Problems (Last Updated 03/17/19 @ 08:50 by India Velásquez) Cellulitis of right abdominal wall (Acute) This is a 73 years old male patient with history of CA bladder status post laparotomy with total cystectomy and urostomy in 2016. Initial postoperative course was complicated with bowel injury that resulted in a colostomy which was reversed letter re-created c in the left lower quadrant for fistula. This time, admitted with lower abdominal/suprapubic redness, swelling, tenderness and a small midline fistula/sinus draining serous fluid. #1 acute lower abdominal/pelvic wall cellulitis/probable abscess/sinus/fistula: Currently, vital signs are stable, afebrile. No leukocytosis. CT scan abdomen and pelvis reviewed as above. CT scan shows cellulitis in the anterior lower pelvic wall extending to penis. Furthermore CT fistulogram was ordered by Dr. Faith which is not reported. Shows a lot of scar tissue along with urostomy and colostomy. Continue antibiotics IV Zosyn, IV fluid, ID consult, pain medication morphine and antiemetics. #2 history of bladder cancer with history of recurrent multiple surgeries: As mentioned above #3 most probably CKD stage III with mild prerenal azotemia: Admission BUN is 19, creatinine is 1.32. BUN/creatinine decreased with IV fluid 214/1.1. #4 history of paroxysmal atrial fibrillation: At this time, is in sinus rhythm, rate is controlled. Continue metoprolol for rate control and Coumadin for anticoagulation. INR 2.1. #5 hypertension: Blood pressure stable, continue metoprolol. #6 hyperlipidemia: Continue statins. #7 history of strokes: Continue statins and Coumadin. #8 DVT prophylaxis: On Coumadin, Clinical Impression(s) from Imaging Studies Pelvis CT 03/26/19 18:05 IMPRESSION: CT findings suggest cellulitis in the lower anterior pelvic wall extending to the penis. An abscess cannot be excluded in the midline anterior pelvic wall above the penis as described. Laboratory Results 03/26/19 19:00: WBC 8.6, RBC 4.45 L, Hgb 12.5 L, Hct 38.7 L, MCV 87.0, MCH 28.1, MCHC 32.3, RDW 15.2 H, RDW Differential 49.2 H, Plt Count 138 L, MPV 10.1, Immature Gran % (Auto) 0.200, Neut % (Auto) 74.9 H, Lymph % (Auto) 14.7 L, Anson % (Auto) 8.6, Eos % (Auto) 1.5, Baso % (Auto) 0.1, Absolute Neuts (auto) 6.4, Absolute Lymphs (auto) 1.26, Total Counted Not Reportable 03/26/19 19:00: Sodium 139, Potassium 3.6, Chloride 108 H, Carbon Dioxide 28.0, Anion Gap 3 L, BUN 19 H, Creatinine 1.32 H, Estim Creat Clear Calc 49.66, Est GFR (MDRD) Af Amer 69, Est GFR (MDRD) Non-Af 57 L, BUN/Creatinine Ratio 14.4, Glucose 148 H, Calcium 8.9 03/26/19 19:00: PT 23.1 H, INR 2.1 03/27/19 05:10: WBC 7.1, RBC 4.35 L, Hgb 12.3 L, Hct 37.6 L, MCV 86.4, MCH 28.3, MCHC 32.7, RDW 15.1 H, RDW Differential 48.3 H, Plt Count 133 L, MPV 10.2, Immature Gran % (Auto) 0.100, Neut % (Auto) 64.5, Lymph % (Auto) 21.0, Anson % (Auto) 11.5 H, Eos % (Auto) 2.8, Baso % (Auto) 0.1, Absolute Neuts (auto) 4.6, Absolute Lymphs (auto) 1.50, Total Counted Not Reportable 03/27/19 05:10: Sodium 141, Potassium 3.6, Chloride 108 H, Carbon Dioxide 25.0, Anion Gap 8, BUN 14, Creatinine 1.10, Estim Creat Clear Calc 59.59, Est GFR (MDRD) Af Amer 85, Est GFR (MDRD) Non-Af 70, BUN/Creatinine Ratio 12.7, Glucose 87, Calcium 8.3 L, Total Bilirubin 1.00, AST 19, ALT 16, Alkaline Phosphatase 53, Total Protein 6.3 L, Albumin 2.9 L, Globulin 3.4, Albumin/Globulin Ratio 0.9 Code Visit Inpatient E&M: 99552 Subs Hosp L3
--- NOTE | 2019-03-27 15:22 | PCM.HP.ID ---
Problem List (1) Fistula Status: Acute Reason for Consult: abd fistula Consulted by: Dr. Corrigan History of Present Illness: The patient is a 73 year old M with h/o bladder cancer s/p resection, urostomy, and colostomy placement, complicated by healing issues and fistula. Presented with 3-4 days of worsened lower intermittent abd pain, nausea, not feeling well. Now with cloudy/foul smelling drainage from the site. Admitted, started on zosyn/flagyl, seen by Dr. Michele. Full ROS performed and neg except as noted above. - Medical History Past Medical History (Chronic Problems): Chronic Problems (Last Updated 03/17/19 @ 08:50 by India Velásquez) Paroxysmal atrial fibrillation (Chronic) History of urostomy (Chronic) Status post colostomy (Chronic) History of bladder cancer (Chronic) Hyperlipemia (Chronic) Hypertension (Chronic) History of stroke (Chronic) 1996, 2007, 2012 Hearing loss (Chronic) Allergies/Adverse Reactions: Allergies azithromycin [From Zithromax] Allergy (Verified 03/26/19 18:09) Unknown ciprofloxacin [From Cipro] Allergy (Verified 03/26/19 18:09) Unknown Home Medications: Ambulatory Orders Medication Instructions Recorded atorvastatin 20 mg tablet 20 mg PO DAILY 03/17/19 metoprolol succinate ER 50 mg 50 mg PO DAILY 03/17/19 tablet,extended release 24 hr multivitamin tablet 1 tab PO DAILY 03/17/19 Warfarin Sodium [Jantoven] 6 mg PO DAILY 03/26/19 - Social History SMOKING STATUS:: Former smoker Vital Signs Temp Pulse Resp BP Pulse Ox 97.9 F 56 L 16 124/57 H 96 03/27/19 09:34 03/27/19 12:23 03/27/19 09:34 03/27/19 09:34 03/27/19 09:34 Oxygen Delivery Method Room Air Weight: 85 kg Body Mass Index (BMI) 28.5 Laboratory Tests Past 24 Hrs 03/26/19 03/26/19 03/26/19 19:00 19:00 19:00 WBC 8.6 RBC 4.45 L Hgb 12.5 L Hct 38.7 L MCV 87.0 MCH 28.1 MCHC 32.3 RDW 15.2 H RDW Differential 49.2 H Plt Count 138 L MPV 10.1 Immature Gran % (Auto) 0.200 Neut % (Auto) 74.9 H Lymph % (Auto) 14.7 L [place] % (Auto) 8.6 Eos % (Auto) 1.5 Baso % (Auto) 0.1 Absolute Neuts (auto) 6.4 Absolute Lymphs (auto) 1.26 Total Counted Not Reportable PT 23.1 H INR 2.1 Sodium 139 Potassium 3.6 Chloride 108 H Carbon Dioxide 28.0 Anion Gap 3 L BUN 19 H Creatinine 1.32 H Estim Creat Clear Calc 49.66 Est GFR (MDRD) Af Amer 69 Est GFR (MDRD) Non-Af 57 L BUN/Creatinine Ratio 14.4 Glucose 148 H Calcium 8.9 Total Bilirubin AST ALT Alkaline Phosphatase Total Protein Albumin Globulin Albumin/Globulin Ratio 03/27/19 03/27/19 05:10 05:10 WBC 7.1 RBC 4.35 L Hgb 12.3 L Hct 37.6 L MCV 86.4 MCH 28.3 MCHC 32.7 RDW 15.1 H RDW Differential 48.3 H Plt Count 133 L MPV 10.2 Immature Gran % (Auto) 0.100 Neut % (Auto) 64.5 Lymph % (Auto) 21.0 [place] % (Auto) 11.5 H Eos % (Auto) 2.8 Baso % (Auto) 0.1 Absolute Neuts (auto) 4.6 Absolute Lymphs (auto) 1.50 Total Counted Not Reportable PT INR Sodium 141 Potassium 3.6 Chloride 108 H Carbon Dioxide 25.0 Anion Gap 8 BUN 14 Creatinine 1.10 Estim Creat Clear Calc 59.59 Est GFR (MDRD) Af Amer 85 Est GFR (MDRD) Non-Af 70 BUN/Creatinine Ratio 12.7 Glucose 87 Calcium 8.3 L Total Bilirubin 1.00 AST 19 ALT 16 Alkaline Phosphatase 53 Total Protein 6.3 L Albumin 2.9 L Globulin 3.4 Albumin/Globulin Ratio 0.9 - Other Studies Radiology: [] reviewed Other Studies: [] Route of nutrition/ use of supplements: [] Nutritional Intake: [] IV Site: [] Tsai Catheter: [] - Physical Exam General: Alert, Oriented x3, Cooperative, No apparent distress HEENT: Atraumatic, PERRLA, EOMI Neck: Supple, No Nodes Lungs: Clear to auscultation, Normal air movement Cardiovascular: Regular rate, Regular Rhythm, No murmurs Abdomen: Non-Distended, Tender - mild soreness, - - Urostomy and ostomy in place. Suprapubic fistula with foul smelling drainage, some redness Extremities: No edema Skin: No rashes IV Site: Peripheral Musculoskeletal: No Tenderness to Palpation of Joints or Extremities Neurological: Cranial nerves II-XII grossly intact - Assessment/Plan Antibiotics: [] Assessment/Plan: [] Active and Suspected Problems (Last Updated 03/17/19 @ 08:50 by India Velásquez) Cellulitis of right abdominal wall (Acute) Abd fistula - continue zosyn, will stop flagyl. Surgery following, CT done. Will follow, thank you, d/w Dr. Corrigan.
[2019-03-27 17:43] VITALS: BP 143/69; PULSE 66; RESP 14; TEMP 36.9; O2SAT 99
[2019-03-27 20:30] VITALS: BP 159/74; PULSE 61; RESP 16; TEMP 36.6; O2SAT 98
[2019-03-27] MEDS: Atorvastatin Calcium 20 MG Tablet PO (22:13)
[2019-03-28 02:30] VITALS: BP 139/68; PULSE 65; RESP 18; TEMP 36.3; O2SAT 97
[2019-03-28] MEDS: 0.9% Normal Saline 1,000 ML 100 ML IV (02:35)
[2019-03-28 06:37] LABS: Absolute Lymphocyte Count 1.39 X10^3/ul (0.83-4.51); Absolute Neutrophil Count 3.1 X10^3/uL (2.0-7.7); Basophil# 0.01 X10^3/uL; Basophil% 0.2 % (0-1); Eosinophil# 0.24 X10^3/uL; Eosinophils% 4.5 % (0-5); Hematocrit 39.5 % (40-54); Hemoglobin 12.8 g/dl (13.0-16.5); International Normalized Ratio 2.6; Lymphocyte # 1.39 X10^3/ul (4.0); Lymphocyte % 26.1 % (19-41); Mean Corp Hgb Conc 32.4 g/gl (32-36); Mean Corpuscular Hgb 27.8 pg (27.0-32.0); Mean Corpuscular Volume 85.7 fL (80-94); Mean Platelet Vol. 10.5 fl (6.2-12.0); Monocyte# 0.57 X10^3/uL; Monocyte% 10.7 % (0-10); Neutrophil # 3.11 X10^3/uL (2.7-7.7); Neutrophil % 58.3 % (47-70); Platelet Count 135 K/mm3 (150-450); RBC Distribution Width CV 14.6 % (11.6-14.6); RBC Distribution Width SD 44.7 fl (35.1-43.9); Red Blood Count 4.61 M/mm3 (4.6-6.2); White Blood Count 5.3 K/mm3 (4.4-11.0)
[2019-03-28 06:41] LABS: POSITIVE COUNT NO; POSITIVE DIFFERENTIAL NO; POSITIVE MORPHOLOGY NO
[2019-03-28 06:45] VITALS: O2SAT 94
[2019-03-28 06:49] LABS: Anion Gap 9 (5-15); BUN 11 mg/dL (7-18); BUN/Creat Ratio 10.6 RATIO (10-20); Calcium,Total 8.2 mg/dL (8.5-10.1); Chloride 112 mmol/L (98-107); Creatinine, Serum 1.04 mg/dL (0.70-1.30); EST Glomerular Filtration Rate 75 mL/min (>60); Est Glom Filt Rate - Afr Amer 90 mL/min (>60); Estimated Creatinine Clearance 63.03 ml/min; Glucose 74 mg/dL (74-106); Potassium 3.9 mmol/L (3.5-5.1); Sodium Level 142 mmol/L (136-145)
--- NOTE | 2019-03-28 08:30 | PCM.PN.SRG ---
Patient Problems: Active and Suspected Problems (Last Updated 03/17/19 @ 08:50 by India Velásquez) Fistula (Acute) Cellulitis of right abdominal wall (Acute) Subjective: I want to go home - Physical Exam General: Alert, Oriented x3 Lungs: Clear to auscultation, Normal air movement Cardiovascular: Regular rate, No murmurs Abdomen: Bowel Sounds Present, Soft - ileostomy and stoma in place, sinus open with some drainage Vital Signs Temp Pulse Resp BP Pulse Ox 97.3 F L 65 18 139/68 H 94 03/28/19 02:30 03/28/19 02:30 03/28/19 02:30 03/28/19 02:30 03/28/19 06:45 Oxygen Delivery Method Room Air Weight: 85 kg Body Mass Index (BMI) 28.5 Intake and Output for Last 24 Hours 03/26/19 03/27/19 03/28/19 23:59 23:59 23:59 Intake Total 2895 / 3747 1572 / 1572 Output Total 1675 / 2425 1050 / 1050 Balance 1220 / 1322 522 / 522 Laboratory Tests Past 24 Hrs 03/28/19 03/28/19 03/28/19 06:18 06:18 06:18 WBC 5.3 RBC 4.61 Hgb 12.8 L Hct 39.5 L MCV 85.7 MCH 27.8 MCHC 32.4 RDW 14.6 RDW Differential 44.7 H Plt Count 135 L MPV 10.5 Immature Gran % (Auto) 0.200 Neut % (Auto) 58.3 Lymph % (Auto) 26.1 [place] % (Auto) 10.7 H Eos % (Auto) 4.5 Baso % (Auto) 0.2 Absolute Neuts (auto) 3.1 Absolute Lymphs (auto) 1.39 Total Counted Not Reportable PT 28.0 H INR 2.6 Sodium 142 Potassium 3.9 Chloride 112 H Carbon Dioxide 21.0 Anion Gap 9 BUN 11 Creatinine 1.04 Estim Creat Clear Calc 63.03 Est GFR (MDRD) Af Amer 90 Est GFR (MDRD) Non-Af 75 BUN/Creatinine Ratio 10.6 Glucose 74 Calcium 8.2 L Medical Necessity - Tobacco Use Smoking Status: Former smoker Tobacco Use: Chew Assessment/Plan All Active Problems (Last Updated 03/17/19 @ 08:50 by India Velásquez) Fistula (Acute) Cellulitis of right abdominal wall (Acute) complex surgical history following complicated radical prostatectomy with creation take down re-creation of colostomy following bowel injury with likely fistula, questionable history of dehiscence questionable mesh placement, abscess with fistula communication between abdominal wall and rectal Romie stump. The patient would like to be discharged today. He states he has been managing this issue for years. I am comfortable with him being discharged today and having him follow up in my office on Saturday I spoke with Dr. John Mullins, meat cutter apprentice [facility] colorectal. Will consider discharge when stable and plan for eventual reoperation with multi speciality group at [facility] main.
--- NOTE | 2019-03-28 08:38 | PCA ---
faxed a request for medical records for patient from [facility] in [facility]
[2019-03-28 09:40] VITALS: BP 151/67; PULSE 62; RESP 18; TEMP 36.8; O2SAT 94
[2019-03-28 09:43] VITALS: PULSE 62
[2019-03-28] MEDS: Metoprolol(XL)Succ 50 MG Tablet PO (09:43)
[2019-03-28] MEDS: Ensure Clear 120 ML Liquid PO (09:43)
--- NOTE | 2019-03-28 09:48 | DCINST_ITS ---
- Discharge Diagnoses Current Active Problems: Current Active and Chronic Problems (Last Updated 03/17/19 @ 08:50 by India Velásquez) Fistula (Acute) Paroxysmal atrial fibrillation (Chronic) History of urostomy (Chronic) Status post colostomy (Chronic) Cellulitis of right abdominal wall (Acute) You will use the following diet at home:: Regular Discharge Activity: May Not Drive - UNTIL Sees his PCP Call your doctor if you observe: Fever of 101 or Higher, Numbness or Tingling, Inability to urinate, Inability to have a bowel movement, Shortness of breath, Dizziness, Fainting spells, Chest pain, Increased palpitations (irregular heartbeat), Uncontrolled pain Additional Instructions: Follow caprice Mullins, Qualitative Field Coordinator [facility] Colorectal Allergies/Adverse Reactions: Allergies azithromycin [From Zithromax] Allergy (Verified 03/26/19 18:09) Unknown ciprofloxacin [From Cipro] Allergy (Verified 03/26/19 18:09) Unknown Medications to take at Discharge atorvastatin 20 mg tablet 20 mg PO DAILY 03/17/19 metoprolol succinate ER 50 mg tablet,extended release 24 hr 50 mg PO DAILY 03/17/19 multivitamin tablet 1 tab PO DAILY 03/17/19 Warfarin Sodium [Jantoven] 6 mg PO DAILY 03/26/19 Amoxicillin/Potassium Clav [Augmentin 875-125 Tablet] 1 ea PO BID #7 tab 03/28/19 The following prescriptions were given: Amoxicillin/Potassium Clav [Augmentin 875-125 Tablet] 1 ea PO BID #7 tab Transmission Status: Pending to [facility]/pharmacy #[id number] Primary Care Physician: Asia Peres MD [Primary Care Provider] - Please follow up with your Primary Care Physician in: IN 1-2 WEEKS Test Results: Test results from this visit will be discussed in further detail at your follow- up appointment, if applicable. Please Follow Up With: Brooks Michele MD When: ON 03/31/19Michael
--- NOTE | 2019-03-28 10:01 | DS.PCM_ITS ---
Discharge Date and Diagnosis Date of Admission: 03/26/19 Date of Discharge: 03/28/19 - Primary Discharge Diagnosis Active and Suspected Problems (Last Updated 03/17/19 @ 08:50 by India Velásquez) Fistula (Acute) Cellulitis of right abdominal wall (Acute) - Secondary Discharge Diagnosis Chronic Problems (Last Updated 03/17/19 @ 08:50 by India Velásquez) Paroxysmal atrial fibrillation (Chronic) History of urostomy (Chronic) Status post colostomy (Chronic) History of bladder cancer (Chronic) Hyperlipemia (Chronic) Hypertension (Chronic) History of stroke (Chronic) 1996, 2007, 2012 Hearing loss (Chronic) Hospital Course and Treatment Consultations 03/26/19 23:41 Consult: Onc/Wound/data abstractor Routine Comment: Summary of Care Provided: This is a 73 years old male patient with history of CA bladder status post laparotomy with total cystectomy and urostomy in 2016. Initial postoperative course was complicated with bowel injury that resulted in a colostomy which was reversed letter re-created c in the left lower quadrant for fistula. This time, admitted with lower abdominal/suprapubic redness, swelling, tenderness and a small midline fistula draining serous fluid. 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 Does not have systemic signs and symptoms including fever, tachycardia or leukocytosis. CT scan shows cellulitis in the anterior lower pelvic wall extending to penis. Furthermore CT fistulogram was done and shows fistula connecting anterior pelvic wall to the rectal stump of Amado's pouch. Dr. Michele put a great deal of effort and call Dr. John Torres in [facility] surgery to further follow-up. With complex surgical history, patient needs multi-speciality team approach for surgical excision of fistula/fistulectomy. Discussed with Dr. Faith and agree for total of 5 days of antibiotic therefore sent home on Augmentin for 3 more days. #2 history of bladder cancer with history of recurrent multiple surgeries: As mentioned above #3 most probably CKD stage III with mild prerenal azotemia: Admission BUN is 19, creatinine is 1.32. BUN/creatinine decreased with IV fluid 214/1.1. #4 history of paroxysmal atrial fibrillation: At this time, is in sinus rhythm, rate is controlled. Continue metoprolol for rate control and Coumadin for anticoagulation. #5 hypertension: Blood pressure stable, continue metoprolol. #6 hyperlipidemia: Continue statins. #7 history of strokes: Continue statins and Coumadin. #8 DVT prophylaxis: On Coumadin, therapeutic. INR 2.6 Discharge medication reconciliation done. Discharge follow-up instructions completed. Discharge process discussed with the patient and all questions were answered to patient's satisfaction. Discharge meds reconciliation done. Total time spent, exact 35 minutes on discharge meds reconciliation, examinat ion, review of imaging and blood test and discussion with the patient on follow- up instructions. Clinical Impression(s) from Imaging Studies Pelvis CT 03/26/19 18:05 IMPRESSION: CT findings suggest cellulitis in the lower anterior pelvic wall extending to the penis. An abscess cannot be excluded in the midline anterior pelvic wall above the penis as described. Laboratory Results 03/28/19 06:18: WBC 5.3, RBC 4.61, Hgb 12.8 L, Hct 39.5 L, MCV 85.7, MCH 27.8, MCHC 32.4, RDW 14.6, RDW Differential 44.7 H, Plt Count 135 L, MPV 10.5, Immature Gran % (Auto) 0.200, Neut % (Auto) 58.3, Lymph % (Auto) 26.1, [place] % (Auto) 10.7 H, Eos % (Auto) 4.5, Baso % (Auto) 0.2, Absolute Neuts (auto) 3.1, Absolute Lymphs (auto) 1.39, Total Counted Not Reportable 03/28/19 06:18: PT 28.0 H, INR 2.6 03/28/19 06:18: Sodium 142, Potassium 3.9, Chloride 112 H, Carbon Dioxide 21.0, Anion Gap 9, BUN 11, Creatinine 1.04, Estim Creat Clear Calc 63.03, Est GFR (MDRD) Af Amer 90, Est GFR (MDRD) Non-Af 75, BUN/Creatinine Ratio 10.6, Glucose 74, Calcium 8.2 L Subjective: Seen and examined. CT fistulogram showed anterior abdominal wall fistula connected to the rectal stump of Amado's pouch. This was discussed with the patient. Patient already seen and examined by Dr. Faith and explained future surgical course with follow-up with Dr. John Mullins. Patient has been treated multiple times with antibiotics last 3 4 years. Patient currently does not have active signs and symptoms of infection including leukocytosis, tachycardia, fever. - Physical Exam General: Alert, Oriented x3, Cooperative HEENT: Atraumatic, PERRLA, EOMI, Normocephalic Neck: Supple, No JVD, Negative Carotid Bruits Lungs: Clear to auscultation, Normal air movement, No rhonchi, No wheeze, No rales Cardiovascular: Regular rate, No murmurs Abdomen: Bowel Sounds Present, Soft, Non Tender, Non-Distended, - - Urostomy and colostomy present. Extremities: No edema, Capillary Refill Less than 3 Seconds Skin: Ulcer/ Wound - Fistula draining clear fluid from anterior pelvic wall in midline., Rash Present - Erythema present over anterior pelvic wall. Musculoskeletal: No Tenderness to Palpation of Joints or Extremities Neurological: Cranial nerves II-XII grossly intact Psych/Mental Status: Normal Affect, Appropriate Vital Signs Temp Pulse Resp BP Pulse Ox 98.3 F 62 18 151/67 H 94 03/28/19 09:40 03/28/19 09:43 03/28/19 09:40 03/28/19 09:40 03/28/19 09:40 Oxygen Delivery Method Room Air Weight: 187 lb 6.287 oz Body Mass Index (BMI) 28.5 Intake and Output for Last 24 Hours 03/26/19 03/27/19 03/28/19 23:59 23:59 23:59 Intake Total 2895 / 3747 1572 / 1572 Output Total 1675 / 2425 1050 / 1050 Balance 1220 / 1322 522 / 522 Laboratory Tests Past 24 Hrs 03/28/19 03/28/19 03/28/19 06:18 06:18 06:18 WBC 5.3 RBC 4.61 Hgb 12.8 L Hct 39.5 L MCV 85.7 MCH 27.8 MCHC 32.4 RDW 14.6 RDW Differential 44.7 H Plt Count 135 L MPV 10.5 Immature Gran % (Auto) 0.200 Neut % (Auto) 58.3 Lymph % (Auto) 26.1 [place] % (Auto) 10.7 H Eos % (Auto) 4.5 Baso % (Auto) 0.2 Absolute Neuts (auto) 3.1 Absolute Lymphs (auto) 1.39 Total Counted Not Reportable PT 28.0 H INR 2.6 Sodium 142 Potassium 3.9 Chloride 112 H Carbon Dioxide 21.0 Anion Gap 9 BUN 11 Creatinine 1.04 Estim Creat Clear Calc 63.03 Est GFR (MDRD) Af Amer 90 Est GFR (MDRD) Non-Af 75 BUN/Creatinine Ratio 10.6 Glucose 74 Calcium 8.2 L Discharge Activity: May Not Drive - UNTIL Sees his PCP Call your doctor if you observe: Fever of 101 or Higher, Numbness or Tingling, I nability to urinate, Inability to have a bowel movement, Shortness of breath, Dizziness, Fainting spells, Chest pain, Increased palpitations (irregular heartbeat), Uncontrolled pain Home Medications: Medications to take at Discharge atorvastatin 20 mg tablet 20 mg PO DAILY 03/17/19 metoprolol succinate ER 50 mg tablet,extended release 24 hr 50 mg PO DAILY 03/17/19 multivitamin tablet 1 tab PO DAILY 03/17/19 Warfarin Sodium [Jantoven] 6 mg PO DAILY 03/26/19 Amoxicillin/Potassium Clav [Augmentin 875-125 Tablet] 1 ea PO BID #7 tab 03/28/19 Following Prescrptions Were Given to Patient: Amoxicillin/Potassium Clav [Augmentin 875-125 Tablet] 1 ea PO BID #7 tab Transmission Status: Received by [facility]/pharmacy #[id number] Primary Care Physician: Asia Peres MD [Primary Care Provider] - Please follow up with your Primary Care Physician in: IN 1-2 WEEKS Please Follow Up With: Brooks Michele MD When: ON 03/31/19Michael Medical Necessity - Tobacco Use Smoking Status: Former smoker Tobacco Use: Chew Meaningful Use Info Meaningful Use Diagnoses (Choose all that apply): None applicable Code Visit Inpatient E&M: 91807 Disch Hosp
== END 2019-03-28 11:27 | disposition home or self-care (01) | DRG 394 ==
LOC: ED 18:33 → MS3 22:16
PROVIDERS: Admitting Provider Hospitalist; Emergency Provider Emergency Medicine; Family Provider Internal Medicine; PCP Internal Medicine; Visit Provider Internal Medicine
DX: K60.4 Rectal fistula (principal); L03.311 Cellulitis of abdominal wall; E78.5 Hyperlipidemia, unspecified; I48.0 Paroxysmal atrial fibrillation; H91.90 Unspecified hearing loss, unspecified ear; Z90.6 Acquired absence of other parts of urinary tract; Z85.51 Personal history of malignant neoplasm of bladder; Z93.3 Colostomy status; Z79.01 Long term (current) use of anticoagulants; Z93.6 Other artificial openings of urinary tract status; Z86.73 Personal history of transient ischemic attack (TIA), and cerebral infarction without residual deficits; Z96.643 Presence of artificial hip joint, bilateral; N18.3 Chronic kidney disease, stage 3 (moderate); I12.9 Hypertensive chronic kidney disease with stage 1 through stage 4 chronic kidney disease, or unspecified chronic kidney disease; Z72.0 Tobacco use
CPT/HCPCS: 20501; 36415; 72193; 77012; 80048; 80053; 85025; 85610; 97161; 97162; 97166; 97802; 99285; 99406; J7030; Q9967; A4216

== ENCOUNTER 2019-04-14 09:15 | Outpatient (RCR) | payer MEDICARE, OTHER, SELFPAY ==
[2019-04-10 09:47] VITALS: BMI 28.5
[2019-04-14 12:30] LABS: International Normalized Ratio 2.1; Prothrombin Time (Protime)PT. 23.6 SECONDS (11.7-14.9)
[2019-04-14 12:58] LABS: Cholesterol 98 mg/dL (200); High Density Lipoprotein 30 mg/dL; Triglycerides 62 mg/dL; Very Low Density Lipoprotein 12 mg/dL (5-40)
== END 2019-04-29 23:59 ==
LOC: BIMLAB 09:15
PROVIDERS: Family Provider Internal Medicine; PCP Internal Medicine; Visit Provider Internal Medicine
DX: I48.0 Paroxysmal atrial fibrillation (principal); Z51.81 Encounter for therapeutic drug level monitoring; Z79.01 Long term (current) use of anticoagulants
CPT/HCPCS: 36415; 80061; 85610

== ENCOUNTER 2019-04-14 19:17 | Emergency (ER) | payer MEDICARE, OTHER, SELFPAY ==
[2019-04-10 09:47] VITALS: BMI 28.5
[2019-04-14 19:17] VITALS: BP 138/70; PULSE 68; RESP 16; TEMP 36.8; O2SAT 98; BMI 28.8
--- NOTE | 2019-04-14 20:54 | CT_ITS ---
STUDY: CT ABDOMEN AND PELVIS WITH CONTRAST REASON FOR EXAM: Male, 73 years old. Abdominal pain. Abdominal wall fistula. Bladder cancer and urostomy. Colostomy. RADIATION DOSAGE (If Supplied By Facility): CTDIvol = ( 11.26 ) mGy, DLP = ( 1020.22 ) mGycm TECHNIQUE: Transaxial images were obtained from the dome of the diaphragm to the symphysis pubis without oral contrast. 100ml IV/Oral Isovue 300 was administered. Sagittal and coronal images were reconstructed. Individualized dose optimization techniques were used for this CT. COMPARISON: None. FINDINGS: Several chronic lung cysts are seen in the lung bases. The visualized portions of the heart are within normal limits. Normal shape and size liver. 1.8 cm probable hemangioma in the lateral aspect of the dome of the liver. 1 cm cyst in the left lobe of the liver. Normal gallbladder and extrahepatic biliary system. Normal spleen. Normal pancreas. Normal bilateral adrenal glands. No acute abnormalities of the kidneys. Normal symmetric contrast-enhancement. There is a 6.4 cm cyst of the upper pole of the right kidney, and another tiny cortical cysts are seen bilaterally. There is very slight bilateral hydronephrosis which is frequently seen in patients status post urinary diversion. The ureteral conduit in the right lower quadrant has a grossly satisfactory appearance and appears patent. Evaluation of the GI tract shows no dilated loops of bowel. Grossly normal stomach. No evidence for bowel obstruction. Previous surgical changes of the right colon in the right lower quadrant. Moderate fecal retention. There is a patent left lower quadrant ostomy. Heavily calcified aorta with no aneurysm. No retroperitoneal adenopathy. Evaluation of the pelvis is markedly limited because of metal artifact from bilateral hip arthroplasties. Surgical changes in the lower abdominal wall. No gross hernia. No gross free fluid. Grossly normal skeletal structures. CT/Abdomen/Pelvis WITH Contrast IMPRESSION: Probable hemangioma in the dome of the liver. Grossly normal appearance of ureteral conduit. Fecal retention. No definite obstruction. Electronically Signed: Pradeep Rice MD at 22:59 EDT , Service support ,
[2019-04-14] MEDS: Ondansetron 4 MG/2 ML Vial IV (21:06)
[2019-04-14] MEDS: Morphine 4 MG/ML Syringe IV (21:06)
[2019-04-14 21:09] VITALS: BP 181/66; PULSE 63; RESP 16; TEMP 36.7; O2SAT 98
[2019-04-14 21:19] LABS: Absolute Lymphocyte Count 1.65 X10^3/uL (0.83-4.51); Absolute Neutrophil Count 6.8 X10^3/uL (2.0-7.7); Basophil# 0.02 X10^3/uL; Basophil% 0.2 % (0-1); Eosinophil# 0.25 X10^3/uL; Eosinophils% 2.6 % (0-5); Hematocrit 40.2 % (40-54); Hemoglobin 12.9 g/dL (13.0-16.5); Lymphocyte # 1.65 X10^3/ul (4.0); Lymphocyte % 17.4 % (19-41); Mean Corp Hgb Conc 32.1 g/dL (32-36); Mean Corpuscular Hgb 28.4 pg (27.0-32.0); Mean Corpuscular Volume 88.5 fL (80-94); Mean Platelet Vol. 10.9 fl (6.2-12.0); Monocyte# 0.78 X10^3/uL; Monocyte% 8.2 % (0-10); NRBC Flagged by Analyzer 0 % (0-5); Neutrophil # 6.75 X10^3/uL (2.7-7.7); Neutrophil % 71.4 % (47-70); Platelet Count 172 K/mm3 (150-450); RBC Distribution Width CV 15.3 % (11.6-14.6); RBC Distribution Width SD 49.2 fl (35.1-43.9); Red Blood Count 4.54 M/mm3 (4.6-6.2); White Blood Count 9.5 K/mm3 (4.4-11.0)
[2019-04-14 21:26] LABS: Anion Gap 4 (5-15); BUN 22 mg/dL (7-18); Calcium,Total 8.8 mg/dL (8.5-10.1); Chloride 109 mmol/L (98-107); Creatinine, Serum 1.16 mg/dL (0.70-1.30); EST Glomerular Filtration Rate 66 mL/min (>60); Est Glom Filt Rate - Afr Amer 80 mL/min (>60); Estimated Creatinine Clearance 56.51 ml/min; Glucose 102 mg/dL (74-106); Potassium 4.1 mmol/L (3.5-5.1); Sodium Level 138 mmol/L (136-145)
[2019-04-14 23:09] LABS: Prothrombin Time (Protime)PT. 22.6 SECONDS (11.7-14.9)
[2019-04-14 23:13] VITALS: BP 168/70; PULSE 59; RESP 16; TEMP 36.7; O2SAT 96
[2019-04-14] MEDS: Morphine 2 MG/ML Syringe IV (23:23)
--- NOTE | 2019-04-14 23:32 | ED.VIS.GEN ---
History of Present Illness Chief Complaint: Abscess Detail of Chief Complaint: Abdominal wall fistula Informant: Family Onset: - - 2 days Current Severity: Mild Maximum Severity: Mild Narrative: Patient was admitted to the hospital March 26 for abscess to the lower abdominal wall. It was found that the patient had a fistula from the abdominal wall to the rectal stump. He has had prior colectomy and urostomy. Dr. Michele contacted colorectal surgery at [facility]. Patient will require ultimate surgery there for removal of the fistula. Patient went home with a few days of antibiotics after his recent stay. He states that over the past 2 days had increasing pain. There appears to be a small pustule where the fistula was previously draining. He has not noted fever. - Past Medical History (1) Fistula Status: Chronic (2) Paroxysmal atrial fibrillation Status: Chronic (3) History of urostomy Status: Chronic (4) Status post colostomy Status: Chronic (5) History of bladder cancer Status: Chronic (6) Hyperlipemia Status: Chronic (7) Hypertension Status: Chronic (8) History of stroke Status: Chronic Comment: 1996, 2007, 2012 (9) Hearing loss Status: Chronic Past Medical History - Allergies and Home Meds Allergies/Adverse Reactions: Allergies azithromycin [From Zithromax] Allergy (Verified 04/10/19 09:43) Unknown ciprofloxacin [From Cipro] Allergy (Verified 04/10/19 09:43) Unknown Primary Care Physician: Brooks Michele MD [STAFF PHYSICIAN] - 2 Days Doctors: Dr. Michele Prior records reviewed: Yes Past Medical History: - - Reviewed Surgical History: - - Cystectomy, urostomy, colostomy Lives: Spouse/ Significant Other Smoking Status: Former smoker - Family History Maternal Family History: Family History (Last Reviewed 04/10/19 @ 09:45 by Ebony Willett) Brother Heart disease Family History: Reports: No pertinent history Paternal Family History: Family History (Last Reviewed 04/10/19 @ 09:45 by Ebony Willett) Brother Heart disease Family History: Reports: No pertinent history Review of Systems General: Denies: Chills, Fever Cardiovascular: Denies: Chest pain Respiratory: Denies: Dyspnea, Cough Gastrointestinal: Reports: Abdominal pain. Denies: Vomiting Skin: Reports: Wounds Physical Exam Vital Signs/Narrative: Vital Signs Temp Pulse Resp BP Pulse Ox 04/14/19 23:13 98.1 F 59 L 16 168/70 H 96 04/14/19 21:09 98.1 F 63 16 181/66 H 98 General: Well nourished, Well developed ENT: Moist mucous membranes Cardiovascular: Regular rate, Regular rhythm Respiratory: No distress, CTA bilaterally Abdomen: Soft, - - Urostomy and colostomy in place. Along the midline patient has a area of scar tissue. There is a small pustule in the center of this area. No spontaneous drainage. No palpable fluctuance. No sign of cellulitis currently. Area is mildly tender to palpation. Skin: Normal color Neurological: Alert, Oriented x3 Diagnostic/Tx/Re-eval Impressions Abdomen/Pelvis CT 04/14/19 20:54 IMPRESSION: Probable hemangioma in the dome of the liver. Grossly normal appearance of ureteral conduit. Fecal retention. No definite obstruction. Electronically Signed: Pradeep Rice MD at 22:59 EDT , Service support , 04/14/19 20:54 Abdomen/Pelvis WITH Contrast [CT] Stat Laboratory Results 04/14/19 04/14/19 04/14/19 21:06 21:06 21:06 WBC 9.5 RBC 4.54 L Hgb 12.9 L Hct 40.2 MCV 88.5 MCH 28.4 MCHC 32.1 RDW Std Deviation 49.2 H RDW Coeff of Carie 15.3 H Plt Count 172 MPV 10.9 Immature Gran % (Auto) 0.200 Neut % (Auto) 71.4 H Lymph % (Auto) 17.4 L [place] % (Auto) 8.2 Eos % (Auto) 2.6 Baso % (Auto) 0.2 Absolute Neuts (auto) 6.8 Absolute Lymphs (auto) 1.65 Absolute Nucleated RBC 0.00 Nucleated RBC % 0 PT Cancelled INR Cancelled Sodium 138 Potassium 4.1 Chloride 109 H Carbon Dioxide 25.0 Anion Gap 4 L BUN 22 H Creatinine 1.16 Estim Creat Clear Calc 56.51 Est GFR (MDRD) Af Amer 80 Est GFR (MDRD) Non-Af 66 BUN/Creatinine Ratio 19.0 Glucose 102 Calcium 8.8 04/14/19 22:30 WBC RBC Hgb Hct MCV MCH MCHC RDW Std Deviation RDW Coeff of Carie Plt Count MPV Immature Gran % (Auto) Neut % (Auto) Lymph % (Auto) [place] % (Auto) Eos % (Auto) Baso % (Auto) Absolute Neuts (auto) Absolute Lymphs (auto) Absolute Nucleated RBC Nucleated RBC % PT 22.6 H INR 2.0 Sodium Potassium Chloride Carbon Dioxide Anion Gap BUN Creatinine Estim Creat Clear Calc Est GFR (MDRD) Af Amer Est GFR (MDRD) Non-Af BUN/Creatinine Ratio Glucose Calcium - Medical Decision Making I spoke with Dr. Michele, the patient's local surgeon shortly after I saw the patient. He asked that we check a white count and a repeat CT scan. Patient was given morphine and Zofran for pain control. Dr. Michele was called with the test results. At this time patient is to follow-up in his office in the next 1 or 2 days for a wound check. At this time we will avoid antibiotics as to not kill off the good bacteria. There is no focal fluid collection noted on imaging. ED Disposition - Plan for ED Patient: Disposition: Home or Assisted Living Diagnosis: Abdominal wall fistula Instructions: POST OP WOUND CHECK, General Prescriptions: Hydrocodone Bitart/Apap 5-325 [[place] 5MG-325MG] 1 tab PO Q6H PRN PRN 3 Days #10 tab PRN Reason: Pain Referrals: Brooks Michele MD [STAFF PHYSICIAN] - 2 Days
== END 2019-04-15 00:07 | disposition home or self-care (01) ==
PROVIDERS: Emergency Provider Emergency Medicine; Family Provider Internal Medicine; PCP Internal Medicine
DX: K63.2 Fistula of intestine (principal); I48.0 Paroxysmal atrial fibrillation; E78.5 Hyperlipidemia, unspecified; I10 Essential (primary) hypertension; Z86.73 Personal history of transient ischemic attack (TIA), and cerebral infarction without residual deficits; Z93.3 Colostomy status; Z93.6 Other artificial openings of urinary tract status; Z85.51 Personal history of malignant neoplasm of bladder; Z51.81 Encounter for therapeutic drug level monitoring; Z79.01 Long term (current) use of anticoagulants; Z87.891 Personal history of nicotine dependence; Z79.899 Other long term (current) drug therapy
CPT/HCPCS: 36415; 74177; 80048; 80061; 85025; 85610; 96374; 96375; 96376; 99283; Q9967; A4216; J2405

== ENCOUNTER → 2019-05-02 10:43 | Outpatient (CLI) | payer MEDICARE, OTHER, SELFPAY ==
[2019-04-14 19:17] VITALS: BMI 28.8
--- NOTE | 2019-05-02 10:45 | CT_ITS ---
STUDY: LOW DOSE CT LUNG CANCER SCREENING REASON FOR EXAM: Male, 73 years old. RADIATION DOSAGE (If Supplied By Facility): CTDIvol = ( 3.02 ) mGy, DLP = ( 115.88 ) mGycm TECHNIQUE: No contrast was administered. Low dose technique was utilized (average mAS-38 and kVp 120). 1.25 mm axial source images with a slice interval of 1.25-mm were reconstructed in lung windows. 2.5 mm axial source images with a slice interval of 2.5-mm were reconstructed in lung windows. 5.0 mm axial source images with a slice interval of 5.0-mm were reconstructed in soft tissue windows. Nodule measured using lung windows on PACS and/or independent workstation with automated measurement of minimum and maximum diameter. Nodule measurement reported as average diameter rounded to the nearest whole number. Growth is defined as an increase ins size of greater than 1.5 mm. COMPARISON: None. Findings: There are no high risk focal findings. There is moderate emphysema with cystic subpleural and bullous change and scattered subpleural fibrosis. There is mild bronchiectasis. There is no pneumothorax, pulmonary edema or pleural effusions. There are physiologic reactive mediastinal lymph nodes, largest ones in the subcarinal station measuring up to 1 cm. Hilar lymph nodes cannot be assessed on the current exam due to limitations of technique. Cardiac chambers are normal in size and shape. Pericardium is normal. There is severe coronary artery disease. CT/Low Dose CT Lung Screening IMPRESSION: 1. Lung-RADS category 1. 2. Moderate emphysema. 3. Severe coronary artery disease. Cardiology referral is advised. IMPORTANT NOTES FOR USE: ACR Lung-RADS Version 1.0 Assessment Categories Release Date: January 25, 2014 Category: Coded 0-4 bases on nodule(s) with highest degree of suspicion. Negative screen is defined as categories 1 and 2; a positive screen is defined as categories 3 and 4. Category 3 and 4A nodules that are unchanged on interval CT should be coded as category 2, and individuals returned to screening in 12 months. Category 4X: Category 3 or 4 nodules with additional imaging findings that increase the suspicion of lung cancer, such as spiculation, GGN that doubles in size in 1 year, enlarged lymph notes, etc. Category Modifiers: S (significant finding unrelated to lung cancer) and C (prior history of treated lung cancer) may be added to the 0-4 Lung-RADS Electronically Signed: Sbeastian Pierce, at 18:57 EDT Tel , Service support ,
== END ==
PROVIDERS: Family Provider Internal Medicine; PCP Internal Medicine; Referring Provider Internal Medicine; Visit Provider Internal Medicine
DX: F17.210 Nicotine dependence, cigarettes, uncomplicated (principal); Z12.2 Encounter for screening for malignant neoplasm of respiratory organs
CPT/HCPCS: G0297

== ENCOUNTER → 2019-05-13 | Outpatient (CLI) | payer MEDICARE, OTHER, SELFPAY ==
[2019-05-12 11:14] VITALS: BMI 28.4
--- NOTE | 2019-05-13 12:13 | STEWCON_ITS ---
Reason For Study: Pre-Op, CAD Stress Results Protocol: Collins Protocol Maximum Predicted HR: 149 bpm Target HR: 127 bpm % Maximum Predicted HR: 85 % DurationHeart Rate Stage (mm:ss) (bpm) BP Comment Baseline 78 130/78No Chest Pain; Diluted Definity 4 ML Given Collins Protocol Stage I 3:00 114 146/70No Chest Pain Collins Protocol Stage II 3:00 127 162/76No Chest Pain Collins Protocol Stage III 0:15 127 / No Chest Pain Recovery 85 132/74No Chest Pain Stress Duration: 6:15 mm:ss Maximum Stress HR: 127 bpm METS: 7 Baseline Echocardiogram Findings The estimated ejection fraction is 65 %. Stress Echo Wall motion Data Resting WM Intermediate WM Stress WM Resting Wall Motion Wall Motion Stress No regional wall motion No regional wall motion abnormalities noted. abnormalities noted. EKG Data The baseline ECG displays normal sinus rhythm. The patient exercised according to the regular Collins protocol for a total duration of 6:15. The maximum heart rate attained was 129 beats per minute. This was 86% of maximum predicted heart rate. The patient exercised into stage 3 of the Collins protocol. During stress, there were no ST or T wave changes noted to suggest ischemia. No clinical angina was noted. No arrhythmias noted. Doppler Measurements & Calculations TR max raman: 241.4 cm/sec TR max P.3 mmHg Interpretation Summary The estimated ejection fraction is 65 %. Normal, adequate, treadmill echocardiogram. Negative for ischemia by EKG and echocardiographic criteria. No anginal symptoms noted. Rare PVCs noted. Appropriate blood pressure response to exercise. Test terminated due to fatigue. Decreased sensitivity due to poor echo windows requiring Definity agent. Final LVEF is 75%. No complications. The study was technically difficult. Contrast injection was performed. Ordering Physician: Jacobo Augustin Referring Physician: Asia Peres Performed By: Nydia Parks, RDCS, RVT
== END | disposition home or self-care (01) ==
LOC: CVS 12:11
PROVIDERS: Family Provider Internal Medicine; PCP Internal Medicine; Referring Provider Internal Medicine Cardiovascular Disease; Visit Provider Internal Medicine Cardiovascular Disease
DX: I25.10 Atherosclerotic heart disease of native coronary artery without angina pectoris (principal); I48.0 Paroxysmal atrial fibrillation; E78.5 Hyperlipidemia, unspecified
CPT/HCPCS: 93017; 93350; Q9957; A4216; C8928

== ENCOUNTER 2019-05-14 08:44 | Outpatient (RCR) | payer MEDICARE, OTHER, SELFPAY ==
[2019-05-12 11:14] VITALS: BMI 28.4
[2019-05-14 08:46] LABS: Bacteria 0 SEEN /hpf (None Seen); Mucous, Urine 0 SEEN /hpf (<or=2+)
[2019-05-14 12:25] LABS: Color, Urine Yellow (Yellow); Glucose, Dipstick Normal (Normal); Ketone-Dipstick Negative (Negative); Leukocyte Esterase-Dipstick 500 /ul (Negative); Nitrite-Dipstick Negative (Negative); Occult Blood-Urine 150 /ul (Negative); Protein-Dipstick 30 mg/dl (Negative); Specific Gravity, Urine 1.015 (1.002-1.030); Urine Bilirubin Dipstick Negative (Negative); Urine Clarity Sl. Cloudy (Clear); Urine Urobilinogen Normal (Normal)
[2019-05-14 12:34] LABS: International Normalized Ratio 1.8
[2019-05-14 12:36] LABS: Red Blood Cells-Urine 10-25 SEEN /hpf (0-5); Squamous Epithelial Cells - UA 0-5 SEEN /hpf (0-5); Triple Phosphate Crystals Ur 2+ /hpf (<or=1+); White Blood Cells 25-50 SEEN /hpf (0-5)
[2019-05-14 12:37] LABS: Amorphous Sediment 2+ PHOS
== END 2019-05-30 23:59 ==
LOC: BIMLAB 08:44
PROVIDERS: Nurse Practitioner Family; Family Provider Internal Medicine; PCP Internal Medicine; Visit Provider Internal Medicine
DX: R30.0 Dysuria (principal); I48.0 Paroxysmal atrial fibrillation; Z51.81 Encounter for therapeutic drug level monitoring; Z79.01 Long term (current) use of anticoagulants
CPT/HCPCS: 36415; 81001; 85610; 87077; 87086; 87088

== ENCOUNTER → 2019-05-15 | Outpatient (CLI) | payer MEDICARE, OTHER, SELFPAY ==
[2019-05-12 11:14] VITALS: BMI 28.4
--- NOTE | 2019-05-15 12:44 | CDU_ITS ---
Reason For Study: VERTIGO Rt. Velocities/BP Lt. Velocities/BP Prox CCA 93/18 cm/sec. Prox CCA 109/24 cm/sec. Mid CCA 113/25 cm/sec. Mid CCA 156/33 cm/sec. Dist CCA 133/32 cm/sec. Dist CCA 116/28 cm/sec. Prox ICA 100/20 cm/sec. Prox ICA 142/29 cm/sec. Mid ICA 163/23 cm/sec. Mid ICA 113/22 cm/sec. Dist ICA 122/21 cm/sec. Dist ICA 56/11 cm/sec. Rt. ICA/CCA = 1.4. Lt. ICA/CCA = 1.2. Prox ECA 191/25 cm/sec. Prox ECA 207/16 cm/sec. Rt. Vert. 53/9 cm/sec. Lt. Vert. 51/13 cm/sec. Right Extracranial There is heterogeneous, irregular atherosclerotic plaque noted in the right common carotid artery. There is heterogeneous, irregular atherosclerotic plaque noted in the right internal carotid artery. There is heterogeneous, irregular atherosclerotic plaque noted in the right external carotid artery. Antegrade flow is noted in the right vertebral artery. There is heterogeneous, irregular atherosclerotic plaque noted in the right bulb. Left Extracranial There is heterogeneous, irregular atherosclerotic plaque noted in the left common carotid artery. There is heterogeneous, irregular atherosclerotic plaque noted in the left internal carotid artery. There is heterogeneous, irregular atherosclerotic plaque noted in the left external carotid artery. Antegrade flow is noted in the left vertebral artery. There is heterogeneous, irregular atherosclerotic plaque noted in the left bulb. Procedure Carotid Duplex 70126. Exam performed in department. Interpretation Summary Irregular calcific plague distal right common carotid, proximal internal and external carotids 50-69% stenosis right internal carotid <50% stenosis right external carotid Irregular calcific plague at the distal left common carotid and proximal internal and external carotids 50-69% stenosis left internal carotid >50% stenosis left external carotid Patent and antegrade vertebrals bilaterally with <50% stenosis Ordering Physician: Jacobo Augustin Referring Physician: Asia Peres Performed By: Katrina Arias RDCS, RVT
== END | disposition home or self-care (01) ==
LOC: CVS 12:43
PROVIDERS: Family Provider Internal Medicine; PCP Internal Medicine; Referring Provider Internal Medicine Cardiovascular Disease; Visit Provider Internal Medicine Cardiovascular Disease
DX: R42 Dizziness and giddiness (principal); I25.10 Atherosclerotic heart disease of native coronary artery without angina pectoris
CPT/HCPCS: 93880

== ENCOUNTER → 2019-05-27 | Outpatient (CLI) | payer MEDICARE, OTHER, SELFPAY ==
[2019-05-12 11:14] VITALS: BMI 28.4
--- NOTE | 2019-05-27 14:07 | ECHOD_ITS ---
Reason For Study: CAD/ASHD Procedure This was a 2D Doppler, Color Flow transthoracic echocardiogram. Exam performed in department. Left Ventricle Mildly dilated left ventricle. The estimated ejection fraction is 55-60 %. Stage 1 diastolic dysfunction. No regional wall motion abnormalities noted. Right Ventricle Normal size and thickness. Normal systolic function. Atria Normal left atrium. Normal right atrium. Normal atrial septum. Mitral Valve The mitral valve is structurally normal. No prolapse or stenosis seen. Tricuspid Valve Normal tricuspid valve. Unable to estimate RV systolic pressure due to insufficient tricuspid regurgitant envelope. Aortic Valve Trisinus/trileaflet aortic valve. Mild focal aortic valve thickening. There is no aortic stenosis. Pulmonic Valve Normal pulmonic valve. Great Vessels Normal aortic root. Normal arch. Normal inferior vena cava. Inferior vena cava collapse with sniff. Pericardium/Pleural No pericardial effusion. MMode/2D Measurements & Calculations LVIDd: 5.3 cm IVSd: 0.97 cm Ao root diam: 3.2 cm LVIDs: 3.1 cm LVPWd: 1.0 cm RVDd: 3.5 cm FS: 40.9 % LAV(MOD-bp): 61.9 ml LA A4 area: 20.0 cm2 LA dimension(2D): 4.2 cm LAV(MOD-bp) Indexed: 31.1 ml/m2 LAV(MOD-sp2): 53.9 ml LAV(MOD-sp4): 53.5 ml RA A4 area: 14.8 cm2 Time Measurements MV dec time: 0.27 sec Doppler Measurements & Calculations MV E max javier: 71.4 cm/sec Lat Peak E' Javier: 8.3 cm/sec Med Peak E' Javier: 4.8 cm/sec MV A max javier: 88.4 cm/sec E/E' lat: 8.6 E/E' med: 14.8 MV E/A: 0.81 Ao V2 max: 104.0 cm/sec LV V1 max: 80.1 cm/sec PA V2 max: 87.2 cm/sec Ao max P.3 mmHg LV V1 max P.6 mmHg Interpretation Summary Mildly dilated left ventricle. The estimated ejection fraction is 55-60 %. Stage 1 diastolic dysfunction. Unable to estimate RV systolic pressure due to insufficient tricuspid regurgitant envelope. Compared to echo report dated 03/08/2006, no appreciable changes noted. Ordering Physician: Jacobo Augustin Referring Physician: Asia Peres Performed By: Nydia Parks RDCS, RVT
== END | disposition home or self-care (01) ==
LOC: CVS 14:06
PROVIDERS: Family Provider Internal Medicine; PCP Internal Medicine; Referring Provider Internal Medicine Cardiovascular Disease; Visit Provider Internal Medicine Cardiovascular Disease
DX: I25.10 Atherosclerotic heart disease of native coronary artery without angina pectoris (principal); I48.0 Paroxysmal atrial fibrillation; I10 Essential (primary) hypertension; Z86.73 Personal history of transient ischemic attack (TIA), and cerebral infarction without residual deficits
CPT/HCPCS: 93306

== ENCOUNTER 2019-06-23 08:15 | Outpatient (RCR) | payer MEDICARE, OTHER, SELFPAY ==
[2019-05-12 11:14] VITALS: BMI 28.4
[2019-06-11 10:40] LABS: Bacteria 0 SEEN /hpf (None Seen); Mucous, Urine 0 SEEN /hpf (<or=2+); Squamous Epithelial Cells - UA 0 SEEN /hpf (0-5)
[2019-06-11 12:50] LABS: Color, Urine Yellow (Yellow); Glucose, Dipstick Normal (Normal); Ketone-Dipstick Negative (Negative); Leukocyte Esterase-Dipstick 500 /ul (Negative); Nitrite-Dipstick Positive (Negative); Occult Blood-Urine 25 /ul (Negative); Protein-Dipstick 30 mg/dl (Negative); Specific Gravity, Urine 1.015 (1.002-1.030); Urine Bilirubin Dipstick Negative (Negative); Urine Clarity Sl. Cloudy (Clear); Urine Urobilinogen Normal (Normal)
[2019-06-11 12:53] LABS: International Normalized Ratio 1.5; Prothrombin Time (Protime)PT. 18.4 SECONDS (11.7-14.9)
[2019-06-11 13:01] LABS: Red Blood Cells-Urine 0-5 SEEN /hpf (0-5); White Blood Cells 25-50 SEEN /hpf (0-5)
[2019-06-11 13:02] LABS: Amorphous Sediment 2+ PHOS; Triple Phosphate Crystals Ur 2+ /hpf (<or=1+)
[2019-06-23 12:31] LABS: International Normalized Ratio 2.1; Prothrombin Time (Protime)PT. 23.4 SECONDS (11.7-14.9)
== END 2019-06-29 23:59 ==
LOC: BIMLAB 08:15
PROVIDERS: Nurse Practitioner Family; Family Provider Internal Medicine; PCP Internal Medicine; Visit Provider Internal Medicine
DX: R30.0 Dysuria (principal); I48.0 Paroxysmal atrial fibrillation; Z51.81 Encounter for therapeutic drug level monitoring; Z79.01 Long term (current) use of anticoagulants
CPT/HCPCS: 36415; 81001; 85610; 87077; 87086; 87088; 87186

== ENCOUNTER 2019-08-03 01:37 | Emergency (ER) | payer MEDICARE, OTHER, SELFPAY ==
[2019-07-10 10:59] VITALS: BMI 28.3
[2019-08-03 01:38] VITALS: BP 151/83; PULSE 82; RESP 18; TEMP 36.6; O2SAT 99; BMI 26.2
--- NOTE | 2019-08-03 01:58 | ED.DCSUM_ITS ---
- ER Visit Summary Date of Service: 08/03/19 Chief Complaint: Bleeding from prior PICC line site History of Present Illness: The patient is a 74 M history of bladder CVA, strokes, CAD, A. fib for which she is on Coumadin. Prior colostomy and urostomy. She was recently at the [facility] discharged yesterday he had a fistula repair when hospitalized for about 2 weeks. He had a PICC line in his right arm that was just removed yesterday. Basically he has had some oozing from that site. Physical Examination: Older male no acute distress accompanied by his . Vital signs are stable afebrile. HEENT exam unremarkable. Lungs clear to auscultation. Heart regular rhythm no murmur. Abdomen is soft. He has a well- healing surgical sites. There is normal postop tenderness. No signs of obstruction. Patient moving all 4 extremities. Neurovascular intact. His right arm at the distal medial side of the bicep for the PICC line previously was is a puncture wound. There is a small bruise about the size of a $0.50 piece and minimal oozing of dark blood. There is no pulsatile bleeding. Neurologically is awake and alert. Test Results: PT / INR = 17 and 1.4 Emergency Department Course and Treatment: We will check the patient's PT/INR since he is on Coumadin. We will redressed the site. Currently there is minimal bleeding there is nothing else to really do. There is no signs of infection at that PICC line site. Repeat exam at 03 20 1 AM he is doing well. Treatment Plan: Direct pressure to the site. Follow-up with [facility] if not improving. Disposition: Discharge Impression: Bleeding from recently removed right upper extremity PICC line site Anticoagulated on Coumadin (subtherapeutic anticoagulation) Status post abdominal fistula repair This note was generated with [employer] dictation software. It may contain incorrect words, spelling, and punctuation that were not noted in review of the chart prior to signing ED Disposition - Plan for ED Patient: Referrals: Asia Peres MD [Primary Care Provider] -
[2019-08-03 02:48] LABS: International Normalized Ratio 1.4; Prothrombin Time (Protime)PT. 17.1 SECONDS (11.7-14.9)
--- NOTE | 2019-08-03 03:23 | ED.DEP ---
ED Disposition - Plan for ED Patient: Disposition: Home or Assisted Living Referrals: Asia Peres MD [Primary Care Provider] - As Needed Additional Instructions: Keep area clean and covered. Direct pressure to help stop the bleeding. This should stop oozing in the next 1 to 2 days.
[2019-08-03 03:34] VITALS: PULSE 70; RESP 16; O2SAT 98
== END 2019-08-03 03:34 | disposition home or self-care (01) ==
PROVIDERS: Emergency Provider Emergency Medicine; Family Provider Internal Medicine; PCP Internal Medicine
DX: R58 Hemorrhage, not elsewhere classified (principal); I48.91 Unspecified atrial fibrillation; I25.10 Atherosclerotic heart disease of native coronary artery without angina pectoris; Z93.3 Colostomy status; Z86.73 Personal history of transient ischemic attack (TIA), and cerebral infarction without residual deficits; Z79.01 Long term (current) use of anticoagulants; Z98.890 Other specified postprocedural states; Z79.899 Other long term (current) drug therapy
CPT/HCPCS: 85610

== ENCOUNTER 2019-08-03 10:45 | Emergency (ER) | payer MEDICARE, OTHER, SELFPAY ==
[2019-08-03 01:38] VITALS: BMI 26.2
[2019-08-03 10:46] VITALS: BP 132/79; PULSE 91; RESP 17; TEMP 36.4; O2SAT 99; BMI 26.1
--- NOTE | 2019-08-03 11:20 | ED.DCSUM_ITS ---
History of Present Illness Chief Complaint: Wound Check Informant: Patient Onset: Days Context: Gradual Onset Timing: Continuous Narrative: Patient is a 74-year-old male presenting with continued drainage from his PICC l ine site. Patient was just discharged from [facility] after abdominal surgery and at that time had a PICC line placed for access and sounds like IV nutrition. PICC line was removed and patient is currently starting his Coumadin and is bridged with Lovenox. His INR early this morning was 1.4. Patient states he has had a little lightheaded. He said continued bleeding and oozing at the site. is also concerned because I do not have the supplies to take care of it at home. He has some mild tenderness at the PICC line site but no other complaints. Past Medical History - Allergies and Home Meds Allergies/Adverse Reactions: Allergies azithromycin [From Zithromax] Allergy (Verified 08/03/19 10:46) Unknown ciprofloxacin [From Cipro] Allergy (Verified 08/03/19 10:46) Unknown Primary Care Physician: Asia Peres MD [Primary Care Provider] - Past Medical History: - - History of stroke, atrial fibrillation and PE Surgical History: - - Cystectomy, urostomy, colostomy Lives: With Family Smoking Status: Former smoker - Family History Maternal Family History: Family History (Last Reviewed 07/10/19 @ 11:04 by Ebony Willett) Brother Heart disease Father Cancer Heart disease Mother Heart disease Family History: Reports: No pertinent history Paternal Family History: Family History (Last Reviewed 07/10/19 @ 11:04 by Ebony Willett) Brother Heart disease Father Cancer Heart disease Mother Heart disease Family History: Reports: No pertinent history Review of Systems All systems negative except as indicated General: Reports: - - lightheaded Skin: Reports: Wounds - right arm- from PICC line, surgical abdominal wound packing Physical Exam Vital Signs/Narrative: Vital Signs Temp Pulse Resp BP Pulse Ox 08/03/19 10:46 97.6 F L 91 17 132/79 H 99 Inital Vital Signs reviewed: Yes General: Well nourished, Well developed, No Acute Distress Head: Normocephalic, Atraumatic Eyes: Perrl, EOMI. Negative for: Pale conjunctiva ENT: Moist mucous membranes, No rhinorrhea Neck: Supple, Nontender Cardiovascular: Regular rate, Regular rhythm, No murmurs, - - 2+ bilateral radial and DP pulses Respiratory: No distress, CTA bilaterally, Chest nontender Abdomen: Soft, Nontender, Nondistended, Normal bowel sounds, - - Midline surgical incision, dressing in place. No surrounding erythema. Normal postoperative tenderness to palpation of the abdomen. Negative for: Guarding, Rebound tenderness Back: Nontender, Normal Inspection Extremities: Nontender, No edema Skin: Normal color, No rash, - - Pinpoint area of oozing on the right forearm with surrounding ecchymosis consistent with removal of the PICC line. Mild tenderness to palpation but no hematoma or pulsatile bleeding noted Neurological: Alert, Oriented x3, Cranial nerves II-XII grossly intact, Normal Strength, Normal Sensation Psychological: Normal affect, Normal Mood Diagnostic/Tx/Re-eval - Medical Decision Making Patient is evaluated for continued bleeding from his PICC line site. His PICC line was removed 2 days ago. He appears nontoxic in no acute distress. H&H is checked which shows a mild anemia but nothing that requires transfusion. Is likely more associated with his recent postoperative status. Does not have an associated hematoma and the bleeding is not pulsatile/arterial. His Coumadin was checked earlier today and was 1.4. Direct pressure is placed to the PICC line site and patient has resolution of the bleeding. Pressure dressing is in place. Once it arrives from the pharmacy, Gelfoam was placed with a pressure dressing. Patient has no further bleeding while he is in the emergency room. is counseled generalized wound care. He does have home health that should be starting tomorrow. Patient is counseled on signs and symptoms requiring return to the emergency room. Patient verbalizes agreement and understand this plan. Patient discharged home in stable and improved condition. ED Disposition - Plan for ED Patient: Disposition: Home or Assisted Living Diagnosis: Bleeding, Visit for wound check Instructions: POST OP WOUND CHECK, Bleeding Referrals: Asia Peres MD [Primary Care Provider] - Additional Instructions: The bleeding is currently stopped. You are not significantly anemic. If you develop worsening or recurrent bleeding please apply pressure with one finger. You have been given further wound care supplies. Continue using the Coumadin and Lovenox as prescribed. Return to emergency room if you develop any worsening symptoms or further concerns.
[2019-08-03 12:23] LABS: Absolute Lymphocyte Count 1.68 X10^3/uL (0.83-4.51); Absolute Neutrophil Count 5.6 X10^3/uL (2.0-7.7); Basophil# 0.06 X10^3/uL; Basophil% 0.7 % (0-1); Eosinophil# 0.33 X10^3/uL; Hematocrit 32.2 % (40-54); Hemoglobin 10.3 g/dL (13.0-16.5); Lymphocyte # 1.68 X10^3/ul (4.0); Lymphocyte % 20.2 % (19-41); Mean Corpuscular Hgb 28.4 pg (27.0-32.0); Mean Corpuscular Volume 88.7 fL (80-94); Monocyte# 0.61 X10^3/uL; Monocyte% 7.3 % (0-10); NRBC Flagged by Analyzer 0 % (0-5); Neutrophil # 5.57 X10^3/uL (2.7-7.7); Neutrophil % 67.2 % (47-70); Platelet Count 351 K/mm3 (150-450); RBC Distribution Width CV 13.6 % (11.6-14.6); RBC Distribution Width SD 44.6 fl (35.1-43.9); Red Blood Count 3.63 M/mm3 (4.6-6.2); White Blood Count 8.3 K/mm3 (4.4-11.0)
[2019-08-03] MEDS: Gelatin Sponge Absorbable 50cm (1) 1 EACH TP (13:10)
== END 2019-08-03 13:15 | disposition home or self-care (01) ==
PROVIDERS: Emergency Provider Emergency Medicine; Family Provider Internal Medicine; PCP Internal Medicine
DX: R58 Hemorrhage, not elsewhere classified (principal); I48.91 Unspecified atrial fibrillation; Z86.711 Personal history of pulmonary embolism; Z79.01 Long term (current) use of anticoagulants; Z87.891 Personal history of nicotine dependence; Z86.73 Personal history of transient ischemic attack (TIA), and cerebral infarction without residual deficits; Z98.890 Other specified postprocedural states; I25.10 Atherosclerotic heart disease of native coronary artery without angina pectoris; Z93.3 Colostomy status; Z79.899 Other long term (current) drug therapy
CPT/HCPCS: 85025; 85610; 99282

== ENCOUNTER → 2019-08-07 | Outpatient (CLI) | payer MEDICARE, OTHER, SELFPAY ==
[2019-08-07 14:14] VITALS: BMI 26.1
[2019-08-07 17:46] LABS: International Normalized Ratio 1.6; Prothrombin Time (Protime)PT. 18.8 SECONDS (11.7-14.9)
[2019-08-07 17:54] LABS: Anion Gap 7 (5-15); BUN 15 mg/dL (7-18); BUN/Creat Ratio 13.4 RATIO (10-20); Calcium,Total 9.2 mg/dL (8.5-10.1); Chloride 107 mmol/L (98-107); Creatinine, Serum 1.12 mg/dL (0.70-1.30); EST Glomerular Filtration Rate 69 mL/min (>60); Est Glom Filt Rate - Afr Amer 83 mL/min (>60); Glucose 82 mg/dL (74-106); Potassium 4.7 mmol/L (3.5-5.1); Sodium Level 139 mmol/L (136-145)
== END | disposition home or self-care (01) ==
LOC: MTLAB 15:19
PROVIDERS: Family Provider Internal Medicine; PCP Internal Medicine; Referring Provider Internal Medicine; Visit Provider Internal Medicine
DX: L98.8 Other specified disorders of the skin and subcutaneous tissue (principal); Z79.01 Long term (current) use of anticoagulants
CPT/HCPCS: 36415; 80048; 85610

== ENCOUNTER 2019-08-15 17:13 | Emergency (ER) | payer MEDICARE, OTHER, SELFPAY ==
[2019-08-07 14:14] VITALS: BMI 26.1
[2019-08-15 17:14] VITALS: BP 127/58; PULSE 91; RESP 16; TEMP 36.7; O2SAT 98; BMI 26.0
--- NOTE | 2019-08-15 18:03 | ED.VIS.GEN ---
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 Patient states that on 07/20/2019 he was seen at [facility] by Dr. Mullins. He said that he had a fistula repaired. Does not know what kind of fistula was. Appears to be intra-abdominal. States that over the last 3 days he has been having intermittent fever. T-max of 101.4. Denies any fever today. Also states that today he had a coffee ground like a bowel movement with some blood in it. He states that he does not have any bowel movements from his rectum since he has a colostomy. Does admit to some rectal pain as well. <Cristino Grye - Last Filed: 08/15/19 18:44> <Jacques Moreno - Last Filed: 08/16/19 00:49> Chief Complaint: General Illness Past Medical History Past Medical History: - - Hypertension, hyperlipidemia, bladder cancer Surgical History: - - Cystectomy, urostomy, colostomy Smoking Status: Former smoker - Family History Maternal Family History: Family History (Last Reviewed 07/10/19 @ 11:04 by Ebony Willett) Brother Heart disease Father Cancer Heart disease Mother Heart disease Family History: Reports: No pertinent history Paternal Family History: Family History (Last Reviewed 07/10/19 @ 11:04 by Ebony Willett) Brother Heart disease Father Cancer Heart disease Mother Heart disease Family History: Reports: No pertinent history <Cristino Grey - Last Filed: 08/15/19 18:44> - Family History Maternal Family History: Family History (Last Reviewed 07/10/19 @ 11:04 by Ebony Willett) Brother Heart disease Father Cancer Heart disease Mother Heart disease Paternal Family History: Family History (Last Reviewed 07/10/19 @ 11:04 by Ebony Willett) Brother Heart disease Father Cancer Heart disease Mother Heart disease <Jacques Moreno - Last Filed: 08/16/19 00:49> - Allergies and Home Meds Allergies/Adverse Reactions: Allergies azithromycin [From Zithromax] Allergy (Verified 08/15/19 17:39) Unknown ciprofloxacin [From Cipro] Allergy (Verified 08/15/19 17:39) Unknown Primary Care Physician: Asia Peres MD [Primary Care Provider] - Review of Systems General: Reports: Fever Eyes: Denies: Visual changes - bilaterally, Diplopia ENT: Denies: Rhinorrhea, Sore throat Cardiovascular: Denies: Chest pain, Palpitations Respiratory: Denies: Dyspnea, Cough, Dyspnea on exertion Gastrointestinal: Reports: - - Dark bowel movement per rectum, normal ostomy output. Denies: Abdominal pain, Nausea, Vomiting, Diarrhea Genitourinary: Denies: Hematuria, Frequency Musculoskeletal: Denies: Back pain, Extremity Pain Skin: Reports: - - Abdominal surgical wound Neurological: Denies: Headache, Weakness, Numbness <Cristino Grey - Last Filed: 08/15/19 18:44> Physical Exam Vital Signs/Narrative: Vital Signs Temp Pulse Resp BP Pulse Ox 08/15/19 17:14 98.0 F 91 16 127/58 H 98 Inital Vital Signs reviewed: Yes General: Well nourished, Well developed, No Acute Distress Head: Normocephalic, Atraumatic Eyes: Perrl, EOMI ENT: Moist mucous membranes, No rhinorrhea Neck: Supple, Nontender Cardiovascular: Regular rate, Regular rhythm, No murmurs Respiratory: No distress, CTA bilaterally, Chest nontender Abdomen: - - Patient has a urostomy and ostomy sites. They appear intact, nontender. Patient does have a midline surgical scar. Appears to be well-healing but does have 3 areas of dehiscence. These are packed. No purulent drainage, cellulitis or erythema Rectal: - - Patient does have excoriation around his rectum. Does have tenderness with rectal exam. No gross melena or hematochezia on exam. Purulent drainage Back: Nontender, Normal Inspection Extremities: Nontender, No edema Skin: Normal color, No rash Neurological: Alert, Oriented x3, Cranial nerves II-XII grossly intact Psychological: Normal affect, Normal Mood <Cristino Grey - Last Filed: 08/15/19 18:44> Vital Signs/Narrative: Vital Signs Temp Pulse Resp BP Pulse Ox 08/15/19 21:46 70 16 128/73 H 98 08/15/19 19:26 97.8 F 82 16 145/75 H 100 <Jacques Moreno - Last Filed: 08/16/19 00:49> Diagnostic/Tx/Re-eval - Medical Decision Making Was evaluated for fever. He recently had surgery at [facility] for an intra-abdominal fistula. Appears well and nontoxic. Afebrile. Labs obtained including CBC, CMP, PT/INR. Surgical incision appears dry clean and intact. Patient does have an appointment in 3 days with his surgeon I was able to obtain records of the patient's previous surgery. 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 It also appears he may had a prostatectomy. This time labs and imaging are pending. Depending on CT results patient may be discharged or admitted with possible transfer to [facility]. Dr. Moreno will assume care of the patient at this time <Cristino Grey - Last Filed: 08/15/19 18:44> Impressions Abdomen/Pelvis CT 08/15/19 18:29 IMPRESSION: 1. What appears to be a distended rectal stump which demonstrates high density suggesting possible communication with opacified bowel. Anteriorly this area there is a large area of air and debris in the prostate bed which was not previously visualized. This area is incompletely visualized due to scatter artifact from bilateral hip replacements. Repeat fistulogram on nonemergent basis would be beneficial when further defining the above findings. 2. No other major interval change when compared to the previous examination. Electronically Signed: Braxton South DO at 21:17 EST Tel [phone], Service support , 08/15/19 18:29 Abdomen/Pelvis WITH Contrast [CT] Stat 08/15/19 17:30 Stool Stool Occult Blood (GLENN) - Final Occult Blood Positive Laboratory Results 08/15/19 08/15/19 08/15/19 18:00 18:00 18:00 WBC 7.3 RBC 3.18 L Hgb 8.7 L Hct 27.6 L MCV 86.8 MCH 27.4 MCHC 31.5 L RDW Std Deviation 46.6 H RDW Coeff of Carie 14.6 Plt Count 221 MPV 10.3 Immature Gran % (Auto) 0.400 Neut % (Auto) 70.1 H Lymph % (Auto) 17.6 L [place] % (Auto) 10.2 H Eos % (Auto) 1.6 Baso % (Auto) 0.1 Absolute Neuts (auto) 5.1 Absolute Lymphs (auto) 1.29 Nucleated RBC % 0 Diff Path Review May foll Platelet Estimate ADEQUATE RBC Morphology N CHROM Hypochromasia RARE Anisocytosis RARE PT 27.8 H INR 2.6 Sodium 141 Potassium 3.3 L Chloride 105 Carbon Dioxide 24.0 Anion Gap 12 BUN 19 H Creatinine 1.08 Estim Creat Clear Calc 59.81 Est GFR (MDRD) Af Amer 86 Est GFR (MDRD) Non-Af 71 BUN/Creatinine Ratio 17.6 Glucose 104 Calcium 8.5 Total Bilirubin 0.20 AST 35 ALT 41 Alkaline Phosphatase 76 Total Protein 6.8 Albumin 2.2 L Globulin 4.6 H Albumin/Globulin Ratio 0.5 L - Medical Decision Making Seen and evaluated independently and in conjunction with resident physician. Agree with notes above unless documented otherwise. I agree the patient's abdomen is benign. He has some mild blanching erythema around his anus that is tender, it does not necessarily appear cellulitic, I did not repeat his rectal exam. The patient suggests that he had quite a bit of what appeared to be dark blood and stool come out of his rectum earlier, and he had a couple days where this occurred in smaller amounts about once per day just prior to today. He has never had anything come out of his rectum since he had his colostomy. 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 His CT today suggests a fistula between distended rectal stump and opacified bowel. Also noted was a large area of air and debris in the prostate bed that is new, but this whole entire area was incompletely visualized due to scatter artifact from bilateral hip replacements. I am awaiting a callback from surgery at [facility] to discuss all these findings and whether the patient should be transferred there or can await for his outpatient appointment in [address] Mustafa, on-call for colorectal surgery. We discussed the CT results, she reviewed what was available in his [facility] chart. Since there is no free fluid on the CT tonight, it is unlikely that he currently has an abscess or perforated bowel. He may have disruption of the Amado's pouch takedown, but since he has been here for 7 hours total and has had no recurrent discharge or bleeding, she feels that the patient is safe to be discharged for now since he has follow-up within the next couple days. We discussed reasons to return. The patient and are comfortable with this overall plan. 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 Mullins's staff to discuss further, or return to [place] or [facility].
[2019-08-15 18:27] LABS: Absolute Lymphocyte Count 1.29 X10^3/uL (0.83-4.51); Absolute Neutrophil Count 5.1 X10^3/uL (2.0-7.7); Basophil# 0.01 X10^3/uL; Basophil% 0.1 % (0-1); Eosinophil# 0.12 X10^3/uL; Eosinophils% 1.6 % (0-5); Hematocrit 27.6 % (40-54); Hemoglobin 8.7 g/dL (13.0-16.5); Lymphocyte # 1.29 X10^3/ul (4.0); Lymphocyte % 17.6 % (19-41); Mean Corp Hgb Conc 31.5 g/dL (32-36); Mean Corpuscular Hgb 27.4 pg (27.0-32.0); Mean Corpuscular Volume 86.8 fL (80-94); Mean Platelet Vol. 10.3 fl (6.2-12.0); Monocyte# 0.75 X10^3/uL; Monocyte% 10.2 % (0-10); NRBC Flagged by Analyzer 0 % (0-5); Neutrophil # 5.12 X10^3/uL (2.7-7.7); Neutrophil % 70.1 % (47-70); POSITIVE MORPHOLOGY YES; Platelet Count 221 K/mm3 (150-450); RBC Distribution Width CV 14.6 % (11.6-14.6); RBC Distribution Width SD 46.6 fl (35.1-43.9); Red Blood Count 3.18 M/mm3 (4.6-6.2); White Blood Count 7.3 K/mm3 (4.4-11.0)
--- NOTE | 2019-08-15 18:29 | CT_ITS ---
STUDY: CT ABDOMEN AND PELVIS WITH CONTRAST REASON FOR EXAM: Male, 74 years old. Fever. Rectal pain and foul-smelling drainage from rectum. Postoperative rectal fistula surgery July 20. History of bladder cancer with urostomy and colostomy. RADIATION DOSAGE (If Supplied By Facility): CTDIvol = ( 18.13 ) mGy, DLP = ( 903.03 ) mGycm TECHNIQUE: Transaxial images were obtained from the dome of the diaphragm to the symphysis pubis with oral contrast. Oral and amp; IV Gastrografin and amp; 100mL Isovue-370 100ML was administered. Sagittal and coronal images were reconstructed. Individualized dose optimization techniques were used for this CT. COMPARISON: April 14, 2019. FINDINGS: There are air cells in both lung bases. The visualized portions of the heart are within normal limits. Stable hepatic cysts. The small enhancing focus in the dome of the right liver noted in the prior study is not appreciated. The gallbladder is incompletely distended but grossly normal. There is no biliary ductal dilatation. Normal spleen. Normal pancreas. Normal bilateral adrenal glands. Again seen is a large cyst off the upper pole of the right kidney with minimal internal septation. This is unchanged in size and appearance from prior study. The right kidney is otherwise unremarkable. There is a stable irregular cyst off the mid left kidney. Smaller cortical cyst seen posteriorly in the mid kidney as well as a smaller exophytic cyst off the lower pole are again noted. No enhancing mass. Both ureters appear grossly normal and can be followed to a ileal conduit in the right lower quadrant. Normal visualized stomach. Normal small intestine. Normal-appearing proximal colon. There is a left lower quadrant colostomy. There is a rectal stump which is distended with high density material and air. The distal portion of the rectum and anus are not visualized due to scatter artifact from bilateral hip replacements. There is non-visualization of the appendix. There is diffuse atherosclerotic calcification of the abdominal aorta, without a demonstrated aneurysm. Normal inferior vena cava. Normal retroperitoneum. Urinary bladder is surgically absent. There is a irregular area of air and debris anterior to the rectum in the expected position of the prostate extends downwards towards the perineal. This may communicate superiorly with the distended rectal stump although scatter artifact limits visualization. No free air or free fluid is seen within the abdomen. There is a ostomy for the ileal conduit in the right lower quadrant. A colostomy is seen in the left lower quadrant. There is midline surgical scarring. There is a defect in the midline in the lower abdomen which extends to the musculature. This does not appear to communicate with the peritoneal cavity.. There are diffuse degenerative changes of the visualized lumbar spine. CT/Abdomen/Pelvis WITH Contrast IMPRESSION: 1. What appears to be a distended rectal stump which demonstrates high density suggesting possible communication with opacified bowel. Anteriorly this area there is a large area of air and debris in the prostate bed which was not previously visualized. This area is incompletely visualized due to scatter artifact from bilateral hip replacements. Repeat fistulogram on nonemergent basis would be beneficial when further defining the above findings. 2. No other major interval change when compared to the previous examination. Electronically Signed: Braxton South DO at 21:17 EST Tel [phone], Service support ,
[2019-08-15 18:30] LABS: International Normalized Ratio 2.6; Prothrombin Time (Protime)PT. 27.8 SECONDS (11.7-14.9)
[2019-08-15 18:34] LABS: ALB/GLOB Ratio 0.5 RATIO (0.9-2.4); AST(SGOT) 35 U/L (15-37); Alanine Aminotransfer ALT/SGPT 41 U/L (16-61); Albumin, Serum 2.2 g/dL (3.2-5.0); Alkaline Phosphatase 76 U/L (45-117); Anion Gap 12 (5-15); BUN 19 mg/dL (7-18); BUN/Creat Ratio 17.6 RATIO (10-20); Calcium,Total 8.5 mg/dL (8.5-10.1); Chloride 105 mmol/L (98-107); Creatinine, Serum 1.08 mg/dL (0.70-1.30); EST Glomerular Filtration Rate 71 mL/min (>60); Est Glom Filt Rate - Afr Amer 86 mL/min (>60); Estimated Creatinine Clearance 59.81 ml/min; Globulin 4.6 g/dL (2.2-4.2); Glucose 104 mg/dL (74-106); Potassium 3.3 mmol/L (3.5-5.1); Protein, Total 6.8 g/dL (6.4-8.2); Sodium Level 141 mmol/L (136-145)
[2019-08-15 18:40] LABS: Differential Indicated SCAN CRITERIA MET
[2019-08-15 19:00] LABS: Platelet Estimate ADEQUATE (ADEQ)
[2019-08-15 19:01] LABS: Anisocytosis RARE; Hypochromasia RARE; Red Cell Morphology N CHROM NORMAL (NORM C&C)
[2019-08-15 19:26] VITALS: BP 145/75; PULSE 82; RESP 16; TEMP 36.6; O2SAT 100
[2019-08-15] MEDS: 0.9% Normal Saline 1,000 ML 200 ML IV (19:29)
[2019-08-15 21:46] VITALS: BP 128/73; PULSE 70; RESP 16; O2SAT 98
[2019-08-15 23:00] VITALS: PULSE 80; RESP 16; O2SAT 96
[2019-08-16 01:03] VITALS: BP 154/75; PULSE 85; RESP 16; O2SAT 99
[2019-08-17 11:03] LABS: Pathologist Review Reviewed
== END 2019-08-16 01:04 | disposition home or self-care (01) ==
PROVIDERS: Emergency Provider Emergency Medicine; Family Provider Internal Medicine; PCP Internal Medicine
DX: K92.2 Gastrointestinal hemorrhage, unspecified (principal); K62.89 Other specified diseases of anus and rectum; K63.2 Fistula of intestine; E78.5 Hyperlipidemia, unspecified; I10 Essential (primary) hypertension; Z93.3 Colostomy status; Z93.6 Other artificial openings of urinary tract status; Z79.01 Long term (current) use of anticoagulants; Z85.51 Personal history of malignant neoplasm of bladder; Z87.891 Personal history of nicotine dependence; Z79.899 Other long term (current) drug therapy
CPT/HCPCS: 74177; 80053; 82274; 85025; 85610; 96360; 96361; 99283; J7030; J7040; Q9967

== ENCOUNTER → 2019-09-16 10:40 | Outpatient (CLI) | payer MEDICARE, OTHER, SELFPAY ==
[2019-09-16 10:11] VITALS: BMI 26.0
[2019-09-16 12:33] LABS: Absolute Neutrophil Count 3.9 X10^3/uL (2.0-7.7); Basophil# 0.03 X10^3/uL; Basophil% 0.5 % (0-1); Eosinophils% 3.2 % (0-5); Hematocrit 37.5 % (40-54); Hemoglobin 11.5 g/dL (13.0-16.5); Lymphocyte % 26.9 % (19-41); Mean Corp Hgb Conc 30.7 g/dL (32-36); Mean Corpuscular Hgb 27.4 pg (27.0-32.0); Mean Corpuscular Volume 89.3 fL (80-94); Mean Platelet Vol. 10.7 fl (6.2-12.0); Monocyte# 0.48 X10^3/uL; Monocyte% 7.6 % (0-10); NRBC Flagged by Analyzer 0 % (0-5); Neutrophil # 3.89 X10^3/uL (2.7-7.7); Neutrophil % 61.3 % (47-70); Platelet Count 227 K/mm3 (150-450); RBC Distribution Width CV 17.2 % (11.6-14.6); RBC Distribution Width SD 56.9 fl (35.1-43.9); White Blood Count 6.3 K/mm3 (4.4-11.0)
[2019-09-16 12:35] LABS: ALB/GLOB Ratio 0.7 RATIO (0.9-2.4); AST(SGOT) 14 U/L (15-37); Alanine Aminotransfer ALT/SGPT 16 U/L (16-61); Albumin, Serum 2.9 g/dL (3.2-5.0); Alkaline Phosphatase 67 U/L (45-117); Anion Gap 5 (5-15); BUN 13 mg/dL (7-18); BUN/Creat Ratio 12.6 RATIO (10-20); Calcium,Total 8.8 mg/dL (8.5-10.1); Chloride 106 mmol/L (98-107); Creatinine, Serum 1.03 mg/dL (0.70-1.30); EST Glomerular Filtration Rate 75 mL/min (>60); Est Glom Filt Rate - Afr Amer 91 mL/min (>60); Globulin 4.1 g/dL (2.2-4.2); Glucose 101 mg/dL (74-106); Potassium 3.2 mmol/L (3.5-5.1); Sodium Level 141 mmol/L (136-145)
== END ==
PROVIDERS: PCP Internal Medicine; Visit Provider Internal Medicine
DX: I10 Essential (primary) hypertension (principal); Z79.01 Long term (current) use of anticoagulants
CPT/HCPCS: 36415; 80053; 85025

== ENCOUNTER 2019-09-25 08:36 | Outpatient (RCR) | payer MEDICARE, OTHER, SELFPAY ==
[2019-05-12 11:14] VITALS: BMI 28.4
[2019-09-10 09:11] LABS: Prothrombin Time Fingerstick 48.6 SEC (11.9-14.4)
[2019-09-10 10:21] LABS: Prothrombin Time (Protime)PT. 35.7 SECONDS (11.7-14.9)
[2019-09-10 11:15] LABS: International Normalized Ratio 3.5
[2019-09-11 15:06] LABS: Prothrombin Time Fingerstick 40.3 SEC (11.9-14.4)
[2019-09-11 16:03] LABS: Prothrombin Time (Protime)PT. 31.5 SECONDS (11.7-14.9)
[2019-09-12 07:54] LABS: International Normalized Ratio 2.3; Prothrombin Time (Protime)PT. 24.9 SECONDS (11.7-14.9)
[2019-09-14 12:34] LABS: International Normalized Ratio 1.9; Prothrombin Time (Protime)PT. 22.1 SECONDS (11.7-14.9)
[2019-09-18 13:51] LABS: International Normalized Ratio 2.6; Prothrombin Time (Protime)PT. 27.6 SECONDS (11.7-14.9)
[2019-09-25 11:35] LABS: Prothrombin Time Fingerstick 33.3 SEC (11.9-14.4)
== END 2019-09-25 18:00 | disposition home or self-care (01) ==
LOC: MTLAB 08:36
PROVIDERS: Family Provider Internal Medicine; PCP Internal Medicine; Referring Provider Internal Medicine; Visit Provider Nurse Practitioner Family
DX: I48.0 Paroxysmal atrial fibrillation (principal); Z51.81 Encounter for therapeutic drug level monitoring; Z79.01 Long term (current) use of anticoagulants
CPT/HCPCS: 36415; 36416; 85610

== ENCOUNTER 2019-10-02 08:51 | Outpatient (RCR) | payer MEDICARE, OTHER, SELFPAY ==
[2019-09-16 10:11] VITALS: BMI 26.0
[2019-10-02 17:05] LABS: Prothrombin Time Fingerstick 31.6 SEC (11.9-14.4)
== END 2019-10-02 18:00 | disposition home or self-care (01) ==
LOC: MTLAB 08:51
PROVIDERS: Family Provider Internal Medicine; PCP Internal Medicine; Referring Provider Nurse Practitioner Family; Visit Provider Nurse Practitioner Family
DX: I48.0 Paroxysmal atrial fibrillation (principal); Z51.81 Encounter for therapeutic drug level monitoring; Z79.01 Long term (current) use of anticoagulants
CPT/HCPCS: 36416; 85610

== ENCOUNTER → 2019-10-19 13:33 | Outpatient (CLI) | payer MEDICARE, OTHER, SELFPAY ==
[2019-09-16 10:11] VITALS: BMI 26.0
[2019-10-20 10:10] LABS: Bacteria 0 SEEN /hpf (None Seen); Mucous, Urine 0 SEEN /hpf (<or=2+); White Blood Cells 0 SEEN /hpf (0-5)
[2019-10-20 12:14] LABS: Glucose, Dipstick Normal (Normal); Ketone-Dipstick Negative (Negative); Leukocyte Esterase-Dipstick 100 /ul (Negative); Nitrite-Dipstick Negative (Negative); Occult Blood-Urine 250 /ul (Negative); Protein-Dipstick 30 mg/dl (Negative); Urine Bilirubin Dipstick Negative (Negative); Urine Urobilinogen Normal (Normal)
[2019-10-20 12:18] LABS: Color, Urine Yellow (Yellow); Urine Clarity Clear (Clear)
[2019-10-20 12:24] LABS: Calcium Oxalate Crystals Ur 2+ /hpf (<or=2+); Red Blood Cells-Urine 25-50 SEEN /hpf (0-5); Squamous Epithelial Cells - UA 0-5 SEEN /hpf (0-5)
== END ==
PROVIDERS: PCP Internal Medicine; Referring Provider Internal Medicine; Visit Provider Internal Medicine
DX: N39.0 Urinary tract infection, site not specified (principal)
CPT/HCPCS: 81001; 87086; 87088

== ENCOUNTER 2019-10-30 02:54 | Emergency (ER) | payer MEDICARE, OTHER, SELFPAY ==
[2019-09-16 10:11] VITALS: BMI 26.0
[2019-10-30 02:55] VITALS: BP 177/78; PULSE 71; RESP 18; TEMP 36.6; O2SAT 100; BMI 27.3
--- NOTE | 2019-10-30 03:00 | CT_ITS ---
STUDY: CT ABDOMEN AND PELVIS WITHOUT CONTRAST REASON FOR EXAM: Male, 74 years old. LT FLANK PAIN RADIATING TO LOWER ABD/HEMATURIA. Pt has hx of bladder with urostomy 3 yr ago. RADIATION DOSAGE (If Supplied By Facility): CTDIvol = ( 8.70 ) mGy, DLP = ( 465.16 ) mGycm TECHNIQUE: Transaxial images were obtained from the dome of the diaphragm to the symphysis pubis without oral contrast, and without intravenous contrast. Sagittal and coronal images were reconstructed. Individualized dose optimization techniques were used for this CT. COMPARISON: CT abdomen and pelvis from 08/15/2019 FINDINGS: The visualized lung bases demonstrate bilateral focal lower lobe cystic changes. The visualized portions of the heart are within normal limits. Hepatic cysts again visualized. Normal gallbladder and extrahepatic biliary system. Normal spleen. Normal pancreas. Normal bilateral adrenal glands. The right kidney demonstrates an exophytic 6 cm hypodensity within the internal thin calcification. There is a left renal inferior pole calculus measuring approximately 6 mm in diameter. Additional left renal subcentimeter calculus visualized. Normal visualized stomach. Normal small intestine. There is a left lower quadrant ostomy. There is a small amount of oral contrast within the distal colon and ostomy. The appendix is visualized and demonstrates multiple appendicoliths versus retained contrast.. There is diffuse atherosclerotic calcification of the abdominal aorta, without a demonstrated aneurysm. Normal inferior vena cava. Normal retroperitoneum. The urinary bladder is not visualized. There are bilateral hip replacements with large amount of streak artifact throughout the pelvis limiting evaluation of this region. Note is made of a small amount of subcutaneous emphysema within the anterior abdominal wall inferiorly, series 602 image 66. No focal fluid collection visualized. CT/Abdomen/Pelvis without Cont IMPRESSION: Status post right lower quadrant ileal conduit and cystectomy. There is mild left hydroureter and left perinephric fat stranding changes without evidence for ureteral calculus. The findings are new from comparison exam and may be due to underlying urinary tract infection and possible stricture at the anastomotic site or recently passed calculus that is not seen. The ileal conduit is nondilated without abnormality. Evaluation is limited due to lack of IV contrast and follow-up hematuria protocol may be of value. Multiple nonobstructive left renal calculi largest measuring 6 mm. No right hydronephrosis or hydroureter. Left lower quadrant colostomy with small amount of distal oral contrast. No evidence for bowel obstruction. Midline lower abdominal wall defect with a small subcutaneous gas locules without evidence for focal fluid collection series 2 image 151. This may be due to recent instrumentation or procedure. Infectious process not excluded. Electronically Signed: Og Quevedo, at 5:03 EST Tel , Service support ,
--- NOTE | 2019-10-30 03:10 | ED.DCSUM_ITS ---
History of Present Illness Chief Complaint: Complaint Informant: Patient, Family Narrative: Patient states that at 1800 hrs. he developed a knifelike pain in the left side of his lower abdomen radiating to his back. Lasted about 15 minutes. He noticed hematuria in his urostomy bag. He was asymptomatic for several hours and then the pain came back. It lasted similarly a short amount of time and has now resolved. He states he has had kidney stones in the past but never had to have surgery for them. He has a urostomy due to prior bladder cancer. 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 I was recently operated on in [place] by Dr. Mullins. He is currently on Cipro and Flagyl. He is also on Coumadin. He also has a colostomy. No blood in the colostomy bag. Past Medical History - Allergies and Home Meds Allergies/Adverse Reactions: Allergies azithromycin [From Zithromax] Allergy (Verified 10/30/19 02:59) Unknown Primary Care Physician: Asia Peres MD [Primary Care Provider] - Surgical History: - - Cystectomy, urostomy, colostomy Smoking Status: Former smoker - Family History Maternal Family History: Family History (Last Reviewed 09/16/19 @ 10:10 by Joann Ramirez) Brother Heart disease Father Cancer Heart disease Mother Heart disease Family History: Reports: No pertinent history Paternal Family History: Family History (Last Reviewed 09/16/19 @ 10:10 by Joann Ramirez) Brother Heart disease Father Cancer Heart disease Mother Heart disease Family History: Reports: No pertinent history Review of Systems General: Denies: Chills, Fever, Sweats Eyes: Denies: Visual changes - bilaterally, Diplopia ENT: Denies: Rhinorrhea, Sore throat Cardiovascular: Denies: Chest pain, Palpitations Respiratory: Denies: Dyspnea, Cough, Dyspnea on exertion Gastrointestinal: Reports: Abdominal pain. Denies: Nausea, Vomiting, Diarrhea, Melena, Hematochezia Genitourinary: Reports: Hematuria. Denies: Dysuria, Frequency Musculoskeletal: Denies: Back pain, Extremity Pain Skin: Denies: Rash, Wounds Neurological: Denies: Headache, Weakness, Numbness Physical Exam Vital Signs/Narrative: Vital Signs Temp Pulse Resp BP Pulse Ox 10/30/19 02:55 98 F 71 18 177/78 H 100 Inital Vital Signs reviewed: Yes General: Well nourished, Well developed, No Acute Distress Head: Normocephalic, Atraumatic Eyes: Perrl, EOMI ENT: Moist mucous membranes, No rhinorrhea Neck: Supple, Nontender Cardiovascular: Regular rate, Regular rhythm, No murmurs Respiratory: No distress, CTA bilaterally, Chest nontender Abdomen: Soft, Nondistended, Normal bowel sounds, - - There is blood in the urostomy bag. There is a packed chronic lower abdominal wound. Back: Nontender, Normal Inspection Extremities: Nontender, No edema Skin: Normal color, No rash Neurological: Alert, Oriented x3, Cranial nerves II-XII grossly intact, Normal Strength, Normal Sensation Psychological: Normal affect, Normal Mood Diagnostic/Tx/Re-eval - Medical Decision Making INR is 2.7. The patient's urine does not appear overtly infected. CT of the abdomen pelvis demonstrates a mild left hydroureter and left perinephric fat stranding. Noted stones in the left kidney. There is a normal right ureter and kidney. This is most likely because the patient passed a kidney stone from the left side. Since he had blood in some small clots in the urostomy bag very likely that 1 of the stones was missed. At this point patient does not have pain. I do not think there is anything more to do. I would encourage him to drink fluids and to ensure that the blood in the urine is resolving. They do not have a urologist. I can refer them to Dr. Ruiz locally or if they wish to follow in [place] with the [facility] they may do so. ED Disposition - Plan for ED Patient: Disposition: Home or Assisted Living Diagnosis: Kidney stone on left side, Hematuria, Anticoagulated on Coumadin Instructions: KIDNEY STONE, Passed Referrals: Van Ruiz MD [STAFF PHYSICIAN] - (call to obtain urologic consultation)
[2019-10-30 03:59] LABS: International Normalized Ratio 2.7; Prothrombin Time (Protime)PT. 28.6 SECONDS (11.7-14.9)
[2019-10-30 04:12] LABS: Anion Gap 5 (5-15); BUN 12 mg/dL (7-18); BUN/Creat Ratio 11.5 RATIO (10-20); Calcium,Total 8.6 mg/dL (8.5-10.1); Chloride 108 mmol/L (98-107); Creatinine, Serum 1.04 mg/dL (0.70-1.30); EST Glomerular Filtration Rate 75 mL/min (>60); Est Glom Filt Rate - Afr Amer 90 mL/min (>60); Estimated Creatinine Clearance 62.12 ml/min; Glucose 88 mg/dL (74-106); Potassium 4.7 mmol/L (3.5-5.1); Sodium Level 136 mmol/L (136-145)
[2019-10-30 04:28] LABS: Mucous, Urine 0 SEEN /hpf (<or=2+)
[2019-10-30 04:29] LABS: Glucose, Dipstick Normal (Normal); Ketone-Dipstick Negative (Negative); Leukocyte Esterase-Dipstick 500 /ul (Negative); Nitrite-Dipstick Negative (Negative); Occult Blood-Urine 250 /ul (Negative); Protein-Dipstick 30 mg/dl (Negative); Specific Gravity, Urine 1.015 (1.002-1.030); Urine Bilirubin Dipstick Negative (Negative); Urine Urobilinogen Normal (Normal)
[2019-10-30 04:44] LABS: Color, Urine Yellow (Yellow); Red Blood Cells-Urine 25-50 SEEN /hpf (0-5); Urine Clarity Cloudy (Clear); White Blood Cells 5-10 SEEN /hpf (0-5)
[2019-10-30 04:45] LABS: Amorphous Sediment 1+; Bacteria RARE /hpf (None Seen); Squamous Epithelial Cells - UA 0-5 SEEN /hpf (0-5)
[2019-10-30 05:22] VITALS: RESP 16
== END 2019-10-30 05:22 | disposition home or self-care (01) ==
PROVIDERS: Emergency Provider Emergency Medicine; PCP Internal Medicine; Referring Provider Internal Medicine
DX: N20.0 Calculus of kidney (principal); Z79.01 Long term (current) use of anticoagulants; Z87.442 Personal history of urinary calculi; Z93.6 Other artificial openings of urinary tract status; Z85.51 Personal history of malignant neoplasm of bladder; Z93.3 Colostomy status; Z87.891 Personal history of nicotine dependence
CPT/HCPCS: 74176; 80048; 81001; 85610; 99284

== ENCOUNTER 2019-11-09 08:02 | Outpatient (RCR) | payer MEDICARE, OTHER, SELFPAY ==
[2019-11-05 08:16] LABS: Prothrombin Time Fingerstick 40.9 SEC (11.9-14.4)
[2019-11-09 15:11] LABS: Prothrombin Time Fingerstick 31.9 SEC (11.9-14.4)
== END 2019-11-09 18:00 | disposition home or self-care (01) ==
LOC: MTLAB 08:02
PROVIDERS: Family Provider Internal Medicine; PCP Internal Medicine; Referring Provider Nurse Practitioner Family; Visit Provider Nurse Practitioner Family
DX: I48.0 Paroxysmal atrial fibrillation (principal); Z51.81 Encounter for therapeutic drug level monitoring; Z79.01 Long term (current) use of anticoagulants
CPT/HCPCS: 36416; 85610

== ENCOUNTER 2019-12-16 11:05 | Outpatient (RCR) | payer MEDICARE, OTHER, SELFPAY ==
[2019-12-16 10:35] VITALS: BMI 27.3
[2019-12-16 12:35] LABS: International Normalized Ratio 2.6
[2019-12-16 12:42] LABS: Anion Gap 6 (5-15); BUN 15 mg/dL (7-18); BUN/Creat Ratio 13.8 RATIO (10-20); Calcium,Total 8.8 mg/dL (8.5-10.1); Chloride 109 mmol/L (98-107); Creatinine, Serum 1.09 mg/dL (0.70-1.30); EST Glomerular Filtration Rate 71 mL/min (>60); Est Glom Filt Rate - Afr Amer 85 mL/min (>60); Glucose 91 mg/dL (74-106); Potassium 4.3 mmol/L (3.5-5.1); Sodium Level 138 mmol/L (136-145)
== END 2019-12-29 23:59 ==
LOC: BIMLAB 11:05
PROVIDERS: Nurse Practitioner Family; Family Provider Internal Medicine; PCP Internal Medicine; Referring Provider Internal Medicine; Visit Provider Internal Medicine
DX: I48.0 Paroxysmal atrial fibrillation (principal); Z51.81 Encounter for therapeutic drug level monitoring; Z79.01 Long term (current) use of anticoagulants
CPT/HCPCS: 36415; 80048; 85610

== ENCOUNTER 2020-01-28 14:25 | Outpatient (RCR) | payer MEDICARE, OTHER, SELFPAY ==
[2020-01-21 12:18] LABS: International Normalized Ratio 1.5; Prothrombin Time (Protime)PT. 17.9 SECONDS (11.7-14.9)
[2020-01-21 12:29] LABS: Anion Gap 9 (5-15); BUN 17 mg/dL (7-18); BUN/Creat Ratio 16.5 RATIO (10-20); Calcium,Total 9.3 mg/dL (8.5-10.1); Chloride 106 mmol/L (98-107); Creatinine, Serum 1.03 mg/dL (0.70-1.30); EST Glomerular Filtration Rate 75 mL/min (>60); Est Glom Filt Rate - Afr Amer 91 mL/min (>60); Glucose 86 mg/dL (74-106); Potassium 3.5 mmol/L (3.5-5.1); Sodium Level 141 mmol/L (136-145)
[2020-01-28 14:41] LABS: Prothrombin Time Fingerstick 32.6 SEC (11.9-14.4)
== END 2020-01-28 18:00 | disposition home or self-care (01) ==
LOC: MTLAB 14:25
PROVIDERS: Family Provider Internal Medicine; PCP Internal Medicine; Referring Provider Internal Medicine; Visit Provider Internal Medicine
DX: I48.0 Paroxysmal atrial fibrillation (principal); Z51.81 Encounter for therapeutic drug level monitoring; Z79.01 Long term (current) use of anticoagulants; E87.6 Hypokalemia; I10 Essential (primary) hypertension
CPT/HCPCS: 36415; 36416; 80048; 85610

== ENCOUNTER → 2020-03-14 13:30 | Outpatient (CLI) | payer MEDICARE, OTHER, SELFPAY ==
--- NOTE | 2020-03-14 13:54 | RAD_ITS ---
STUDY: X-RAY - ABDOMEN/PELVIS REASON FOR EXAM: Male, 74 years old. Kidney stones TECHNIQUE: Single AP view of the abdomen / pelvis. COMPARISON: None. FINDINGS: There is an abundance of fecal material throughout the colon. A colostomy is seen in the right lower quadrant. Surgical clips are seen in the lower abdomen and pelvis. There are mild degenerative changes of the visualized lumbar spine. RAD/Abdomen Single View IMPRESSION: Large amount of fecal material is seen in the colon. Electronically Signed: Alphonse Ling, at 15:33 EDT , Service support ,
== END ==
PROVIDERS: PCP Internal Medicine; Referring Provider Urology; Visit Provider Urology
DX: N20.0 Calculus of kidney (principal)
CPT/HCPCS: 74018

== ENCOUNTER 2020-03-16 11:28 | Outpatient (RCR) | payer MEDICARE, OTHER, SELFPAY ==
[2020-03-08 07:45] LABS: Prothrombin Time Fingerstick 24.9 SEC (11.9-14.4)
[2020-03-16 12:47] LABS: Absolute Lymphocyte Count 1.66 X10^3/uL (0.83-4.51); Absolute Neutrophil Count 4.2 X10^3/uL (2.0-7.7); Basophil# 0.04 X10^3/uL; Basophil% 0.6 % (0-1); Eosinophil# 0.22 X10^3/uL; Eosinophils% 3.3 % (0-5); Hematocrit 37.1 % (40-54); Hemoglobin 11.6 g/dL (13.0-16.5); Lymphocyte # 1.66 X10^3/ul (4.0); Lymphocyte % 25.1 % (19-41); Mean Corp Hgb Conc 31.3 g/dL (32-36); Mean Corpuscular Hgb 27.8 pg (27.0-32.0); Mean Corpuscular Volume 88.8 fL (80-94); Mean Platelet Vol. 10.3 fl (6.2-12.0); Monocyte# 0.49 X10^3/uL; Monocyte% 7.4 % (0-10); NRBC Flagged by Analyzer 0 % (0-5); Neutrophil # 4.19 X10^3/uL (2.7-7.7); Neutrophil % 63.4 % (47-70); Platelet Count 166 K/mm3 (150-450); RBC Distribution Width CV 14.9 % (11.6-14.6); RBC Distribution Width SD 47.8 fl (35.1-43.9); Red Blood Count 4.18 M/mm3 (4.6-6.2); White Blood Count 6.6 K/mm3 (4.4-11.0)
[2020-03-16 12:58] LABS: International Normalized Ratio 1.8; Prothrombin Time (Protime)PT. 20.4 SECONDS (11.7-14.9)
[2020-03-16 13:03] LABS: ALB/GLOB Ratio 0.8 RATIO (0.9-2.4); AST(SGOT) 14 U/L (15-37); Alanine Aminotransfer ALT/SGPT 16 U/L (16-61); Alkaline Phosphatase 65 U/L (45-117); Anion Gap 6 (5-15); BUN 15 mg/dL (7-18); BUN/Creat Ratio 13.9 RATIO (10-20); Calcium,Total 9.1 mg/dL (8.5-10.1); Chloride 108 mmol/L (98-107); Cholesterol 89 mg/dL (200); Creatinine, Serum 1.08 mg/dL (0.70-1.30); EST Glomerular Filtration Rate 71 mL/min (>60); Est Glom Filt Rate - Afr Amer 86 mL/min (>60); Globulin 3.9 g/dL (2.2-4.2); Glucose 101 mg/dL (74-106); High Density Lipoprotein 26 mg/dL; Potassium 3.6 mmol/L (3.5-5.1); Protein, Total 6.9 g/dL (6.4-8.2); Sodium Level 142 mmol/L (136-145); Triglycerides 108 mg/dL; Very Low Density Lipoprotein 22 mg/dL (5-40)
== END 2020-03-29 23:59 ==
LOC: BIMLAB 11:28
PROVIDERS: Family Provider Internal Medicine; PCP Internal Medicine; Referring Provider Internal Medicine; Visit Provider Internal Medicine
DX: I48.0 Paroxysmal atrial fibrillation (principal); E78.5 Hyperlipidemia, unspecified; I10 Essential (primary) hypertension
CPT/HCPCS: 36415; 36416; 80053; 80061; 85025; 85610

== ENCOUNTER 2020-04-15 13:01 | Outpatient (RCR) | payer MEDICARE, OTHER, SELFPAY ==
[2020-03-16 11:02] VITALS: BMI 27.3
[2020-04-15 15:07] LABS: International Normalized Ratio 2.8; Prothrombin Time (Protime)PT. 28.8 SECONDS (11.7-14.9)
== END 2020-04-29 23:59 ==
LOC: BIMLAB 13:01
PROVIDERS: Family Provider Internal Medicine; PCP Internal Medicine; Referring Provider Internal Medicine; Visit Provider Internal Medicine
DX: I48.0 Paroxysmal atrial fibrillation (principal)
CPT/HCPCS: 36415; 85610

== ENCOUNTER 2020-05-02 21:22 | Emergency (ER) | payer MEDICARE, OTHER, SELFPAY ==
[2020-03-16 11:02] VITALS: BMI 27.3
[2020-05-02 21:23] VITALS: BP 153/106; PULSE 83; RESP 18; TEMP 36.4; O2SAT 96; BMI 26.8
--- NOTE | 2020-05-02 22:07 | CT_ITS ---
STUDY: CT ABDOMEN AND PELVIS WITH CONTRAST REASON FOR EXAM: Male, 74 years old. 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 IV 100mL Isovue-370 was administered. Sagittal and coronal images were reconstructed. Individualized dose optimization techniques were used for this CT. COMPARISON: CT abdomen and pelvis from 10/30/2019 FINDINGS: The visualized lung bases demonstrate lower lobe cystic changes. There is a left lower lobe subpleural nodular density measuring approximately 7 mm, series 2 image 19.. The visualized portions of the heart are within normal limits. Hepatic cysts again visualized.. Normal gallbladder and extrahepatic biliary system. Normal spleen. Normal pancreas. Normal bilateral adrenal glands. There is a stable exophytic right renal cystic hypodensity within internal septation which is stable from comparison exam. There is a right lower quadrant ileal conduit. There is symmetric excretion of contrast from the kidneys with filling of the ileal conduit without hydronephrosis. The left kidney demonstrates Cystic area with internal septations within the midpole measuring approximately 4.9 x 3 x 4 cm. Additional tiny left renal cystic hypodensity medially. This measures approximately 1.3 cm in diameter. Several stable subcentimeter left renal calculi. Normal visualized stomach. There is a left lower quadrant ostomy. There are multiple surgical bowel anastomosis visualized. There is a moderate amount of retained stool throughout the bowel. Correlate for constipation. No transition point to suggest bowel obstruction. There is non-visualization of the appendix. There is diffuse atherosclerotic calcification of the abdominal aorta, without a demonstrated aneurysm. Normal inferior vena cava. Normal retroperitoneum. There is a trace locule of gas within the midline lower abdominal wall, series 2 image 110. This appears similar to prior examination. No defined drainable fluid collections visualized.. There is bilateral hip endoprosthesis with large amount of metallic streak artifact throughout the pelvis limiting evaluation. CT/Abdomen/Pelvis W IV Cont ONLY IMPRESSION: Large amount of retained stool throughout the bowel loops concerning for constipation. No definite obstruction. Right lower quadrant ileal conduit without evidence for hydronephrosis or hydroureter. 4.9 cm septated cystic area involving the left kidney not well visualized on prior study without IV contrast. Recommend dedicated CT or MRI renal mass protocol for further evaluation as neoplastic process not excluded considering history. 7 mm subpleural left lower lobe nodular density. This could be focal atelectasis versus nodule Recommend follow-up CT chest in 3 months to assess stability. Tiny loculated gas within the lower midline abdominal wall which may correspond to patient''s reported fistula. No drainable fluid collections visualized. This region appears similar to prior examination. Electronically Signed: Og Quevedo, at 0:33 EDT Tel , Service support ,
[2020-05-02 22:50] LABS: Absolute Lymphocyte Count 1.38 X10^3/uL (0.83-4.51); Absolute Neutrophil Count 5.6 X10^3/uL (2.0-7.7); Basophil# 0.03 X10^3/uL; Basophil% 0.4 % (0-1); Eosinophil# 0.19 X10^3/uL; Eosinophils% 2.4 % (0-5); Hematocrit 33.8 % (40-54); Hemoglobin 10.6 g/dL (13.0-16.5); Lymphocyte # 1.38 X10^3/ul (4.0); Lymphocyte % 17.4 % (19-41); Mean Corp Hgb Conc 31.4 g/dL (32-36); Mean Corpuscular Hgb 26.8 pg (27.0-32.0); Mean Corpuscular Volume 85.6 fL (80-94); Mean Platelet Vol. 10.1 fl (6.2-12.0); Monocyte# 0.73 X10^3/uL; Monocyte% 9.2 % (0-10); NRBC Flagged by Analyzer 0 % (0-5); Neutrophil # 5.58 X10^3/uL (2.7-7.7); Neutrophil % 70.2 % (47-70); Platelet Count 229 K/mm3 (150-450); RBC Distribution Width CV 14.7 % (11.6-14.6); RBC Distribution Width SD 45.9 fl (35.1-43.9); Red Blood Count 3.95 M/mm3 (4.6-6.2); White Blood Count 7.9 K/mm3 (4.4-11.0)
[2020-05-02] MEDS: 0.9% Normal Saline 1,000 ML 125 ML IV (22:50)
[2020-05-02 22:51] VITALS: BP 140/65; PULSE 67; RESP 17; TEMP 37.3; O2SAT 98
[2020-05-02 23:03] LABS: Prothrombin Time (Protime)PT. 37.9 SECONDS (11.7-14.9)
[2020-05-02 23:06] LABS: Anion Gap 4 (5-15); BUN 18 mg/dL (7-18); BUN/Creat Ratio 14.3 RATIO (10-20); Calcium,Total 8.6 mg/dL (8.5-10.1); Chloride 106 mmol/L (98-107); Creatinine, Serum 1.26 mg/dL (0.70-1.30); EST Glomerular Filtration Rate 60 mL/min (>60); Est Glom Filt Rate - Afr Amer 72 mL/min (>60); Estimated Creatinine Clearance 51.27 ml/min; Glucose 127 mg/dL (74-106); International Normalized Ratio 3.9; Potassium 3.4 mmol/L (3.5-5.1); Sodium Level 139 mmol/L (136-145)
[2020-05-03 00:08] VITALS: BP 143/71; PULSE 68; RESP 18; TEMP 36.9; O2SAT 98
--- NOTE | 2020-05-03 00:41 | ED.DCSUM_ITS ---
- ER Visit Summary Date of Service: 05/03/20 Chief Complaint: Bleeding from fistula History of Present Illness: The patient is a [address] Peres and Dr. turpin (a colorectal surgeon at [facility]). 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 Patient reports that he has had bleeding from his fistula site for approximately 1 week. States he is having to change his dressing approximately 3 times per day. He reports that this fistula was partially repaired in June 2019. Dr. Mullins told him that that he would require further surgery for this. Patient reports he has had a fever to 102.6 degrees and chills. He denies any sore throat or cough. No chest pain or trouble breathing. No abdominal pain, nausea, or vomiting. His colostomy is draining normally without blood. His urostomy is draining normally. He states his urine is slightly darker than usual. However he denies any cloudiness or blood. He does complain of generalized weakness. Physical Examination: Vitals: Stable. Afebrile. General: Well-nourished and well-developed. Head: Normocephalic atraumatic. Neck: Supple, no lymphadenopathy. No JVD. Nontender. Cardiovascular: Regular rate and rhythm. No murmurs. Respiratory: No respiratory distress. Clear to auscultation bilaterally. Abdominal: Soft, mild tenderness palpation surrounding his fistula, nondistended, normal bowel sounds. No guarding, rebound, or peritoneal signs. Right side of his lower abdomen his urostomy is intact and is draining clear urine. On the left side of his abdomen the colostomy is intact. The stoma appears normal. There is no duskiness. There is liquid brown stool in the bag. Just inferior to his umbilicus there is an approximately 2 cm scarred area with a small amount of serosanguineous drainage on the dressing. He had there is no surrounding erythema or warmth to suggest a an infection. There is no ind uration or fluctuance. Back: Nontender. Extremities: Nontender, no edema. Skin: Normal color, no rash. Neurologic: Alert and oriented ?3. Cranial nerves II through XII are intact. Normal strength and sensation. Psych: Normal affect. Test Results: CBC shows an H&H 10.6 and 33.8 with lymphocytes 17. Of note his hemoglobin was 11.6 on March 16. Chem-7 shows potassium 3.4 and glucose 127. Lactic acid is 1.0. INR is 3.9. Clinical Impression(s) from Imaging Studies Abdomen/Pelvis CT 05/02/20 22:07 IMPRESSION: Large amount of retained stool throughout the bowel loops concerning for constipation. No definite obstruction. Right lower quadrant ileal conduit without evidence for hydronephrosis or hydroureter. 4.9 cm septated cystic area involving the left kidney not well visualized on prior study without IV contrast. Recommend dedicated CT or MRI renal mass protocol for further evaluation as neoplastic process not excluded considering history. 7 mm subpleural left lower lobe nodular density. This could be focal atelectasis versus nodule Recommend follow-up CT chest in 3 months to assess stability. Tiny loculated gas within the lower midline abdominal wall which may correspond to patient''s reported fistula. No drainable fluid collections visualized. This region appears similar to prior examination. Electronically Signed: Woodbobby Sae, at 0:33 EDT Tel , Service support , Emergency Department Course and Treatment: Patient refused pain and nausea medications. He had her aerobic and anaerobic cultures obtained from this fistula. He had blood cultures obtained. Treatment Plan: Patient will be discharged instructions to hold his Coumadin for the next [address] Peres for further dosing of his Coumadin. He is instructed to try to get a hold of Dr. Mullins to follow-up with 1 of his partners until still gets back into town on May 17. Return to the emergency department for any worsening symptoms. Disposition: To home in improved and stable condition. Impression: 1. Abdominal wall fistula. 2. Supratherapeutic INR. 3. Anemia. 4. Fever, uncertain cause. This note was generated with [employer] software. It may contain incorrect words, spelling, and punctuation that were not noted in review of the chart prior to signing ED Disposition - Plan for ED Patient: Disposition: Home or Assisted Living Instructions: ED FUO Adult Referrals: Asia Peres MD [Primary Care Provider] - 1-2 Days if not improving
[2020-05-03 00:55] VITALS: BP 153/67; PULSE 71; RESP 19; O2SAT 98
--- NOTE | 2020-05-04 09:38 | ED.RN ---
DR HUSAIN REVIEWED PT WOUND CULTURE RESULTS. THIS NURSE INSTRUCTED TO CONTACT PT TO SEE HOW HE IS FEELING AT THIS TIME. IF PT IS FEVER FREE AND FEELING BETTER, FOLLOW UP WITH PCP. WHEN THIS NURSE SPOKE WITH THE PT AND HIS , PT STATES THAT HE FEELS A LITTLE BIT BETTER AND HAS NOT HAD A FEVER SINCE SATURDAY NIGHT. AND PT INFORMED TO CONTACT PCP FOR FURTHER FOLLOWUP
--- NOTE | 2020-05-05 09:35 | ED.RN ---
DR MORALES REVIEWED THE CHART AND TREATMENT GIVEN. WITH MRSA RESULT, DR MORALES REQUESTED PT START LEVAQUIN 750MG PO DAILY. WHEN THIS NURSE CONTACTED PT AND , HE WAS SEEN AT [facility] YESTERDAY AND STARTED ON AUGMENTIN AND LEVAQUIN. PER DR MORALES, THAT TREATMENT IS SUFFICIENT
== END 2020-05-03 00:56 | disposition home or self-care (01) ==
LOC: ED 22:27
PROVIDERS: Emergency Provider Emergency Medicine; PCP Internal Medicine
DX: K63.2 Fistula of intestine (principal); D64.9 Anemia, unspecified; R50.9 Fever, unspecified; R79.1 Abnormal coagulation profile; Z93.3 Colostomy status; Z93.6 Other artificial openings of urinary tract status; I10 Essential (primary) hypertension; E78.00 Pure hypercholesterolemia, unspecified; Z86.73 Personal history of transient ischemic attack (TIA), and cerebral infarction without residual deficits; Z87.891 Personal history of nicotine dependence; Z79.899 Other long term (current) drug therapy; Z79.01 Long term (current) use of anticoagulants
CPT/HCPCS: 74177; 80048; 83605; 85025; 85610; 86850; 86900; 86901; 87040; 87070; 87075; 87077; 87186; 87205; 96360; 96361; 99285; J7030; Q9967; A4216

== ENCOUNTER → 2020-05-11 | Outpatient (CLI) | payer MEDICARE, OTHER, SELFPAY ==
[2020-05-02 21:23] VITALS: BMI 26.8
[2020-05-11 09:05] LABS: Hematocrit 38.2 % (40-54); Hemoglobin 11.5 g/dL (13.0-16.5); Mean Corp Hgb Conc 30.1 g/dL (32-36); Mean Corpuscular Hgb 25.6 pg (27.0-32.0); Mean Corpuscular Volume 85.1 fL (80-94); Mean Platelet Vol. 9.8 fl (6.2-12.0); Platelet Count 301 K/mm3 (150-450); RBC Distribution Width CV 14.7 % (11.6-14.6); RBC Distribution Width SD 46.4 fl (35.1-43.9); Red Blood Count 4.49 M/mm3 (4.6-6.2); White Blood Count 8.4 K/mm3 (4.4-11.0)
[2020-05-11 09:28] LABS: AST(SGOT) 26 U/L (15-37); Alanine Aminotransfer ALT/SGPT 28 U/L (16-61); Albumin, Serum 2.5 g/dL (3.2-5.0); Alkaline Phosphatase 65 U/L (45-117); Anion Gap 4 (5-15); BUN 17 mg/dL (7-18); BUN/Creat Ratio 13.5 RATIO (10-20); Bilirubin, Direct 0.07 mg/dL (0.00-0.30); Calcium,Total 9.3 mg/dL (8.5-10.1); Chloride 108 mmol/L (98-107); Creatinine, Serum 1.26 mg/dL (0.70-1.30); EST Glomerular Filtration Rate 60 mL/min (>60); Est Glom Filt Rate - Afr Amer 72 mL/min (>60); Globulin 5.2 g/dL (2.2-4.2); Glucose 78 mg/dL (74-106); Potassium 4.2 mmol/L (3.5-5.1); Protein, Total 7.7 g/dL (6.4-8.2); Sodium Level 138 mmol/L (136-145)
== END | disposition home or self-care (01) ==
LOC: LAB 08:29
PROVIDERS: PCP Internal Medicine; Referring Provider Internal Medicine Infectious Disease; Visit Provider Internal Medicine Infectious Disease
DX: L98.8 Other specified disorders of the skin and subcutaneous tissue (principal)
CPT/HCPCS: 36415; 80048; 80076; 85027

== ENCOUNTER 2020-05-20 08:34 | Outpatient (RCR) | payer MEDICARE, OTHER, SELFPAY ==
[2020-03-16 11:02] VITALS: BMI 27.3
[2020-05-05 08:50] LABS: Prothrombin Time Fingerstick 30.7 SEC (11.9-14.4)
[2020-05-24 12:31] LABS: Prothrombin Time Fingerstick 29.3 SEC (11.9-14.4)
== END 2020-05-30 18:00 | disposition home or self-care (01) ==
LOC: MTLAB 08:34
PROVIDERS: Family Provider Internal Medicine; PCP Internal Medicine; Referring Provider Internal Medicine; Visit Provider Internal Medicine
DX: I48.0 Paroxysmal atrial fibrillation (principal)
CPT/HCPCS: 36416; 85610

== ENCOUNTER 2020-06-21 08:44 | Outpatient (RCR) | payer MEDICARE, OTHER, SELFPAY ==
[2020-06-02 08:50] LABS: Prothrombin Time Fingerstick 34.6 SEC (11.9-14.4)
[2020-06-06 10:04] LABS: International Normalized Ratio 3.1; Prothrombin Time (Protime)PT. 31.3 SECONDS (11.7-14.9)
[2020-06-17 11:16] LABS: Prothrombin Time Fingerstick 39.8 SEC (11.9-14.4)
[2020-06-21 08:55] LABS: Prothrombin Time Fingerstick 28.5 SEC (11.9-14.4)
== END 2020-06-21 18:00 | disposition home or self-care (01) ==
LOC: MTLAB 08:44
PROVIDERS: Family Provider Internal Medicine; PCP Internal Medicine; Referring Provider Internal Medicine; Visit Provider Internal Medicine
DX: I48.0 Paroxysmal atrial fibrillation (principal)
CPT/HCPCS: 36415; 36416; 85610

== ENCOUNTER → 2020-08-02 14:20 | Outpatient (CLI) | payer MEDICARE, OTHER, SELFPAY ==
--- NOTE | 2020-08-02 14:25 | CT_ITS ---
STUDY: CT CHEST WITHOUT CONTRAST REASON FOR EXAM: Male, 75 years old. Lung nodule follow up. Hx hypertension, irregular heart rate. RADIATION DOSAGE (If Supplied By Facility): CTDIvol = ( 9.64 ) mGy, DLP = ( 370.94 ) mGycm TECHNIQUE: Transaxial imaging was performed without the administration of intravenous contrast material. Individualized dose optimization techniques were used for this CT. COMPARISON: 05/02/2020. FINDINGS: There is hyperinflation of the lungs consistent with chronic obstructive lung disease (COPD). There is evidence for centrilobular emphysema with mild interstitial fibrosis and widespread microcystic changes and moderate to large subpleural blebs. There is a 3 mm nodule in the right apex on axial image 20. There is a 5 mm nodule in the anterior segment of the right upper lobe, axial image 35. Stable 7 mm nodule in the lateral left lung base. No infiltrates. No effusions. There is no demonstrated pleural abnormality. Normal heart and pericardium. There are calcifications of the coronary arteries. Normal mediastinum. Normal hilar regions. Normal unenhanced pulmonary arteries. There is atherosclerotic calcification of the aortic arch with tortuosity and elongation of the aortic arch and descending thoracic aorta. Normal osseous structures. There is no demonstrated abnormality of the visualized upper abdomen. CT/Chest without Contrast IMPRESSION: COPD/centrilobular emphysema. Numerous pulmonary nodules as above. Follow-up in 6 months recommended. Electronically Signed: Pradeep Rice MD at 18:58 EST , Service support ,
== END ==
PROVIDERS: PCP Family Medicine; Referring Provider Internal Medicine Pulmonary Disease; Visit Provider Internal Medicine Pulmonary Disease
DX: R91.1 Solitary pulmonary nodule (principal); C67.9 Malignant neoplasm of bladder, unspecified
CPT/HCPCS: 71250

== ENCOUNTER → 2020-09-14 14:13 | Outpatient (CLI) | payer MEDICARE, OTHER, SELFPAY ==
[2020-09-14 15:26] LABS: Absolute Neutrophil Count 4.6 X10^3/uL (2.0-7.7); Basophil# 0.04 X10^3/uL; Basophil% 0.5 % (0-1); Eosinophil# 0.28 X10^3/uL; Eosinophils% 3.8 % (0-5); Hematocrit 41.6 % (40-54); Hemoglobin 13.1 g/dL (13.0-16.5); Lymphocyte % 25.7 % (19-41); Mean Corp Hgb Conc 31.5 g/dL (32-36); Mean Corpuscular Hgb 28.3 pg (27.0-32.0); Mean Corpuscular Volume 89.8 fL (80-94); Mean Platelet Vol. 11.1 fl (6.2-12.0); Monocyte# 0.57 X10^3/uL; Monocyte% 7.7 % (0-10); NRBC Flagged by Analyzer 0 % (0-5); Neutrophil # 4.58 X10^3/uL (2.7-7.7); Platelet Count 200 K/mm3 (150-450); RBC Distribution Width CV 13.9 % (11.6-14.6); Red Blood Count 4.63 M/mm3 (4.6-6.2); White Blood Count 7.4 K/mm3 (4.4-11.0)
[2020-09-14 15:43] LABS: Anion Gap 5 (5-15); BUN 16 mg/dL (7-18); BUN/Creat Ratio 14.5 RATIO (10-20); Calcium,Total 8.9 mg/dL (8.5-10.1); Chloride 107 mmol/L (98-107); EST Glomerular Filtration Rate 70 mL/min (>60); Est Glom Filt Rate - Afr Amer 84 mL/min (>60); Glucose 80 mg/dL (74-106); Potassium 3.9 mmol/L (3.5-5.1); Sodium Level 142 mmol/L (136-145)
== END ==
PROVIDERS: PCP Family Medicine; Referring Provider Family Medicine; Visit Provider Nurse Practitioner Adult Health
DX: I10 Essential (primary) hypertension (principal); R53.83 Other fatigue
CPT/HCPCS: 36415; 80048; 85025

== ENCOUNTER → 2020-09-27 13:39 | Outpatient (CLI) | payer MEDICARE, OTHER, SELFPAY ==
--- NOTE | 2020-09-27 14:18 | CT_ITS ---
STUDY: CT ABDOMEN WITH AND WITHOUT CONTRAST REASON FOR EXAM: Male, 75 years old. Neoplasm left kidney. History of bladder cancer with colostomy and urostomy. RADIATION DOSAGE (If Supplied By Facility): CTDIvol = ( 14.32 ) mGy, DLP = ( 921.74 ) mGycm TECHNIQUE: Transaxial images were obtained pre and post I.V. administration of IV 100mL Isovue-370, and oral contrast. Sagittal and coronal images were reconstructed. Individualized dose optimization techniques were used for this CT. COMPARISON: May 02, 2020. October 30, 2019. August 15, 2019. CT chest August 02, 2020. FINDINGS: Pulmonary cysts in both lower lobes. Stable 7 mm pleural-based noncalcified left lower lobe nodule since April 2020. The visualized portions of the heart are within normal limits. Stable hepatic cysts. Normal gallbladder and extrahepatic biliary system. Normal spleen. Normal pancreas. Normal bilateral adrenal glands. Stable exophytic minimally complex cyst right kidney. Previously noted ill-defined mass left kidney measuring 3.4 x 3.0 cm has significantly decreased in size since the prior study. Stable low-attenuation lesions left kidney which do not represent simple cysts. Normal visualized stomach. Normal small intestine. Normal colon. Left lower quadrant colostomy. The appendix is visualized and appears normal. Possible fistula into lower pelvis in the midline not included on the images provided. Postoperative changes of ileal conduit with right lower quadrant ostomy. There is atherosclerotic calcification of the abdominal aorta, without a demonstrated aneurysm. Normal inferior vena cava. Normal retroperitoneum. No intra-abdominal free air. Normal abdominal wall. Normal osseous structures. CT/Abdomen W/WO IV Contrast IMPRESSION: Significant decrease in ill-defined mass left kidney. Recommend continued follow-up. Stable low-attenuation lesions left kidney which do not represent simple cysts. Postoperative changes as above. Stable pleural-based nodule left lower lobe since April 2020. Stable hepatic cysts. Electronically Signed: Tacho Arias MD at 3:31 EST , Service support ,
== END ==
PROVIDERS: PCP Family Medicine; Visit Provider Urology
DX: D41.02 Neoplasm of uncertain behavior of left kidney (principal)
CPT/HCPCS: 74170; Q9967

== ENCOUNTER 2020-11-28 12:57 | Outpatient (RCR) | payer MEDICARE, OTHER, SELFPAY | END 2020-11-28 23:59 | LOC: IMMUN 12:57 | PROVIDERS: PCP Family Medicine; Visit Provider Family Medicine | DX: Z23 Encounter for immunization (principal) | CPT/HCPCS: 0011A; 0012A ==

== ENCOUNTER → 2021-01-09 08:06 | Outpatient (CLI) | payer MEDICARE, OTHER, SELFPAY ==
[2021-01-09 10:24] LABS: ALB/GLOB Ratio 0.9 RATIO (0.9-2.4); AST(SGOT) 23 U/L (15-37); Alanine Aminotransfer ALT/SGPT 24 U/L (16-61); Albumin, Serum 3.4 g/dL (3.2-5.0); Alkaline Phosphatase 69 U/L (45-117); Anion Gap 6 (5-15); BUN 16 mg/dL (7-18); BUN/Creat Ratio 14.3 RATIO (10-20); Calcium,Total 8.8 mg/dL (8.5-10.1); Chloride 108 mmol/L (98-107); Cholesterol 116 mg/dL (200); Creatinine, Serum 1.12 mg/dL (0.70-1.30); EST Glomerular Filtration Rate 68 mL/min (>60); Est Glom Filt Rate - Afr Amer 83 mL/min (>60); Globulin 3.6 g/dL (2.2-4.2); Glucose 80 mg/dL (74-106); High Density Lipoprotein 36 mg/dL; Potassium 3.5 mmol/L (3.5-5.1); Sodium Level 141 mmol/L (136-145); Triglycerides 69 mg/dL; Very Low Density Lipoprotein 14 mg/dL (5-40)
== END ==
PROVIDERS: PCP Family Medicine; Visit Provider Family Medicine
DX: I10 Essential (primary) hypertension (principal)
CPT/HCPCS: 36415; 80053; 80061

== ENCOUNTER → 2021-01-30 14:03 | Outpatient (CLI) | payer MEDICARE, OTHER, SELFPAY ==
--- NOTE | 2021-01-30 14:05 | CT_ITS ---
STUDY: CT CHEST WITHOUT CONTRAST REASON FOR EXAM: Male, 75 years old. Six-month follow-up for pulmonary nodule. RADIATION DOSAGE (If Supplied By Facility): CTDIvol = ( 10.71 ) mGy, DLP = ( 390.77 ) mGycm TECHNIQUE: Transaxial imaging was performed without the administration of intravenous contrast material. Multiplanar coronal and sagittal images were reformatted. Individualized dose optimization techniques were used for this CT. COMPARISON: Comparison is made with prior study dated 08/02/2020. FINDINGS: Hyperinflation. Emphysematous changes with evidence of centrilobular emphysema more prominent in the upper lobes. Bullous formation seen. Stable 3 mm noncalcified nodule in the right lung apex as seen on axial image #18. The previously seen nodular density in the anterior aspect of the right upper lobe is not seen at this time. Stable 7 mm noncalcified nodule in the peripheral aspect of the left lower lobe as seen on axial image #99. There is no demonstrated pleural abnormality. There are calcifications of the coronary arteries. There are multiple small lymph nodes within the mediastinum, which are normal in size and morphology most compatible with reactive lymph hyperplasia. Normal hilar regions. Normal unenhanced pulmonary arteries. There is atherosclerotic calcification of the aortic arch with tortuosity and elongation of the aortic arch and descending thoracic aorta. There are multi-level degenerative changes of the thoracic spine. There is no demonstrated abnormality of the visualized upper abdomen. CT/Chest without Contrast IMPRESSION: Stable examination. The previously seen nodular density in the anterior aspect of the right upper lobe is not seen at this time. Electronically Signed: Alphonse Ling MD at 14:51 EDT , Service support ,
== END ==
PROVIDERS: PCP Family Medicine; Referring Provider Internal Medicine Pulmonary Disease; Visit Provider Internal Medicine Pulmonary Disease
DX: R91.1 Solitary pulmonary nodule (principal)
CPT/HCPCS: 71250

== ENCOUNTER → 2021-05-16 13:58 | Outpatient (CLI) | payer MEDICARE, OTHER, SELFPAY ==
[2021-05-16 14:09] LABS: Bacteria 0 SEEN /hpf (None Seen); Mucous, Urine 0 SEEN /hpf (<or=2+); Squamous Epithelial Cells - UA 0 SEEN /hpf (0-5)
[2021-05-16 18:26] LABS: Color, Urine Yellow (Yellow); Glucose, Dipstick Normal (Normal); Ketone-Dipstick Negative (Negative); Leukocyte Esterase-Dipstick 100 /ul (Negative); Nitrite-Dipstick Negative (Negative); Occult Blood-Urine 50 /ul (Negative); Protein-Dipstick Negative (Negative); Urine Bilirubin Dipstick Negative (Negative); Urine Clarity Clear (Clear); Urine Urobilinogen Normal (Normal)
[2021-05-16 18:44] LABS: White Blood Cells 5-10 SEEN /hpf (0-5)
[2021-05-16 18:45] LABS: Red Blood Cells-Urine 5-10 SEEN /hpf (0-5)
== END ==
PROVIDERS: PCP Family Medicine; Referring Provider Family Medicine; Visit Provider Family Medicine
DX: N39.0 Urinary tract infection, site not specified (principal)
CPT/HCPCS: 81001; 87077; 87086; 87088; 87186

== ENCOUNTER → 2021-08-28 13:13 | Outpatient (CLI) | payer MEDICARE, OTHER, SELFPAY ==
--- NOTE | 2021-08-28 13:20 | CT_ITS ---
STUDY: CT CHEST WITHOUT CONTRAST REASON FOR EXAM: Male, 76 years old. PULM NODULE F/U RADIATION DOSAGE (If Supplied By Facility): CTDIvol = ( 6.73 ) mGy, DLP = ( 281.68 ) mGycm TECHNIQUE: Transaxial imaging was performed without the administration of intravenous contrast material. Multiplanar coronal and sagittal images were reformatted. Individualized dose optimization techniques were used for this CT. COMPARISON: Comparison is made with prior study dated 01/30/2021. FINDINGS: Hyperinflation. Emphysematous changes with small bullous formation in both lungs. This is unchanged. Stable 3 mm noncalcified nodule in the right lung apex as seen on axial image #20. Stable 7 mm noncalcified nodule in the peripheral aspect of the left lower lobe as seen on axial image #9. There is no demonstrated pleural abnormality. There are calcifications of the coronary arteries. There are multiple small lymph nodes within the mediastinum, which are normal in size and morphology most compatible with reactive lymph hyperplasia. Normal hilar regions. Normal unenhanced pulmonary arteries. There is atherosclerotic calcification of the aortic arch with tortuosity and elongation of the aortic arch and descending thoracic aorta. There are multi-level degenerative changes of the thoracic spine. There is no demonstrated abnormality of the visualized upper abdomen. CT/Chest without Contrast IMPRESSION: Stable examination. Electronically Signed: Alphonse Ling MD at 13:46 EST , Service support ,
== END ==
PROVIDERS: PCP Family Medicine; Referring Provider Internal Medicine Pulmonary Disease; Visit Provider Internal Medicine Pulmonary Disease
DX: R91.1 Solitary pulmonary nodule (principal)
CPT/HCPCS: 71250

== ENCOUNTER → 2021-09-12 15:25 | Outpatient (CLI) | payer MEDICARE, OTHER, SELFPAY ==
--- NOTE | 2021-09-12 15:00 | PET_ITS ---
EXAMINATION: FDG PET-CT INDICATIONS: A 76-year-old male with history of carcinoma of the urinary bladder presenting for restaging examination and evaluation of pulmonary nodularity. COMPARISON EXAMINATION: CT of the chest report dated 08/28/21 INDEX LESION SIZE SUV INTERPRETATION Left lower lung-left lower lobe 1.3 (max) Quantitative criteria for viable neoplasm are not fulfilled, sequential radiologic investigation recommended Lower pelvis 44.3-mm (frame 65) 9.2 May necessitate further investigation with CT of the abdomen and pelvis with oral and intravenous contrast as defined TECHNIQUE: Following the intravenous administration of 17.53 mCi of F-18 deoxyglucose via the right antecubital fossa, multiplanar image acquisitions of the neck, chest, abdomen and pelvis to level of mid thigh, obtained at one hour post radiopharmaceutical administration contemporaneously interpreted with the current CT of the neck, chest, abdomen and pelvis, to level of mid thigh, dated 09/12/[address] of the chest report dated 08/28/21 reveals: BLOOD GLUCOSE LEVEL:?? 87 mg/dl? FINDINGS: 1. Mild increased fluorine labeled glucose metabolism is defined in the left lower posterolateral lung-left lower lobe generating a calculated maximal standard uptake value of 1.3. Quantitative criteria for neoplasia are not fulfilled. 2. Normal physiologic distribution of the radiopharmaceutical is apparent in the hepatic (2.7) and splenic parenchyma, both renal units, and visualized intestinal tract. There is evidence of an apparent urinary diversion-ileal conduit. The visualized portion of the cerebral cortical-subcortical structures demonstrate symmetric and preserved glucose metabolism. Focal increased FDG distribution is defined in the left anterior pelvic wall associated with colostomy placement. Prominent radiopharmaceutical concentration is defined in the lower pelvis, linear in presentation, oriented in the longitudinal plane which appears to involve the rectal pouch. The calculated maximal standard uptake value is 9.2. The maximal axial diameter of the metabolic abnormality is 44.3-mm (AP). The cranial caudal dimension is approximately 6.9-cm. Pertinent CT findings are as follows: CHEST: There is atherosclerotic calcification defined in the thoracic aorta without evidence of dilatation-aneurysm formation. Coronary arterial calcification is observed. Bilateral axillary and scattered mediastinal soft tissue densities are non-glucose avid. There are no parenchymal densities-nodules defined in the right and left hemithorax with discernible increased FDG concentration. Emphysematous changes are defined in the bilateral upper lung zones. ABDOMEN AND PELVIS: There is atherosclerotic calcification defined in the abdominal aorta without evidence of dilatation-aneurysm formation. Pelvic arterial calcification is demonstrated. Postsurgical changes are manifest in the right anterior abdominal mesentery with the anastomotic site demonstrating prominent segmental tracer uptake. The urinary bladder is surgically absent. There is evidence of an ileal conduit, urinary diversion, as well as colostomy noted in the right and left anterior pelvic gaines respectively. SKELETAL: Degenerative changes are noted in the cervical, thoracic and lumbar spine without evidence of increased radiopharmaceutical concentration. Bilateral hip arthroplasties are defined. PET/PET/CT Tumor Base -Thigh Init IMPRESSION: 1. Mild increased fluorine labeled glucose metabolism defined in the left lower posterolateral lung-left lower lobe does not fulfill quantitative criteria for viable neoplasm. (Kahlil et al, Annals of Internal Medicine, 138:724, 2003). 2. Metabolic and/or anatomic stability may be ensured in the left lower posterolateral lung-left lower lobe abnormality with repeat FDG PET study and/or CT of the thorax in 3-6 months if clinically indicated. (Xiu, Journal of Nuclear Medicine 45:88, P2004 [place], Seminars in Thoracic and Cardiovascular Surgery 14:292, 2002). 3. Increased tracer uptake observed in the lower pelvis associated with the rectal pouch may be further investigated with CT of the abdomen and pelvis with oral and intravenous contrast if clinically indicated. (Grace et al, Journal of Nuclear Medicine, 30:U750, 2003). Electronic Signature Brooks Mcallister D.O. Accurate Quantification of SUVs for this report are calculated using the exclusive [employer]. ([place].S. Patent No. 10, 674, 983). Standardization and correction of the FDG SUV metric via [employer] technology allow for vendor non-specific objective quantitative examination comparison and optimization of the sensitivity and specificity of the FDG PET-CT examination. Electronically Signed: Brooks Mcallister DO at 23:07 EST Tel , Service support ,
== END ==
PROVIDERS: PCP Family Medicine; Referring Provider Internal Medicine Pulmonary Disease; Visit Provider Internal Medicine Pulmonary Disease
DX: R91.8 Other nonspecific abnormal finding of lung field (principal)
CPT/HCPCS: 78815; A9552

== ENCOUNTER 2022-01-15 12:24 | Outpatient (CLI) | payer MEDICARE, OTHER, SELFPAY ==
[2022-01-15 15:20] LABS: Hemoglobin A1c 5.3 % (3.8-5.6)
[2022-01-15 15:24] LABS: ALB/GLOB Ratio 0.7 RATIO (0.9-2.4); AST(SGOT) 15 U/L (15-37); Alanine Aminotransfer ALT/SGPT 19 U/L (16-61); Albumin, Serum 2.9 g/dL (3.2-5.0); Alkaline Phosphatase 58 U/L (45-117); Anion Gap 6 (5-15); BUN 13 mg/dL (7-18); BUN/Creat Ratio 12.1 RATIO (10-20); Calcium,Total 8.9 mg/dL (8.5-10.1); Chloride 107 mmol/L (98-107); Creatinine, Serum 1.07 mg/dL (0.70-1.30); EST Glomerular Filtration Rate 72 mL/min (>60); Est Glom Filt Rate - Afr Amer 87 mL/min (>60); Globulin 4.2 g/dL (2.2-4.2); Glucose 86 mg/dL (74-106); Potassium 3.6 mmol/L (3.5-5.1); Protein, Total 7.1 g/dL (6.4-8.2); Sodium Level 139 mmol/L (136-145)
[2022-01-15 15:38] LABS: Hematocrit 41.2 % (40-54); Hemoglobin 13.6 g/dL (13.0-16.5); Mean Corpuscular Hgb 29.3 pg (27.0-32.0); Mean Corpuscular Volume 88.8 fL (80-94); Mean Platelet Vol. 11.4 fl (6.2-12.0); Platelet Count 166 K/mm3 (150-450); RBC Distribution Width CV 13.9 % (11.6-14.6); RBC Distribution Width SD 44.3 fl (35.1-43.9); Red Blood Count 4.64 M/mm3 (4.6-6.2); White Blood Count 8.5 K/mm3 (4.4-11.0)
[2022-01-15 23:54] LABS: Erythrocyte Sedimentation Rate 27 mm/hr (0-20)
== END 2022-01-15 23:59 | disposition home or self-care (01) ==
LOC: MFPLAB 12:25
PROVIDERS: PCP Family Medicine; Visit Provider Family Medicine
DX: E11.9 Type 2 diabetes mellitus without complications (principal); R10.30 Lower abdominal pain, unspecified
CPT/HCPCS: 36415; 80053; 83036; 85027; 85652; 86140

== ENCOUNTER 2022-01-15 13:01 | Outpatient (CLI) | payer MEDICARE, OTHER, SELFPAY ==
--- NOTE | 2022-01-15 13:04 | CT_ITS ---
INDICATION: STAT. RLQ pain suprapubic. hx of infected mesh/fistula. possib EXAMINATION: CT ABDOMEN AND PELVIS WITH CONTRAST - CT Abdomen And Pelvis W/ Contrast Injection TECHNIQUE: Helically acquired images were obtained of the abdomen and pelvis following IV contrast. A radiation dose optimization technique was used for this scan. IV Contrast dosage and agent: 100 mL of [id number]-[id number]. Oral contrast: Yes. COMPARISON: 09/12/2021.. FINDINGS: LOWER CHEST: 1.4 cm subpleural nodule visualized in the inferolateral aspect of the left lower lobe with a prominent adjacent bullous lesion, seen on axial series 2 image 20/131. Emphysematous changes visualized in the right lower lobe. Bilateral lower lobe scarring and mild interstitial prominence is seen. Nno cardiomegaly or pericardial effusion. LIVER: Homogeneous. Simple cysts visualized within the liver. GALLBLADDER AND BILIARY TREE: No calcified gallstones. No gallbladder distension or wall edema. No intra- or extrahepatic biliary ductal dilation. PANCREAS: No focal cystic or solid mass. SPLEEN: Normal size without focal cystic or solid mass. ADRENAL GLANDS: No nodules. KIDNEYS AND URETERS: Normal renal size and position. No hydronephrosis. Bilateral renal cysts more prominent on the right. Bilateral ureters are visualized diverging to the right lower quadrant where a stoma is visualized in position. PERITONEUM: No ascites or free air. No other fluid collection. BOWEL: No evidence of acute appendicitis. No stomach or bowel distension. No focal inflammatory change. LYMPH NODES: No enlarged mesenteric or retroperitoneal lymph nodes. VESSELS: Aorta is non-dilated. Atherosclerotic calcification of the abdominal aorta and pelvic vessels is seen. URINARY BLADDER: The urinary bladder is surgically absent. REPRODUCTIVE ORGANS: ABDOMINAL WALL: Stranding of the anterior abdominal wall in the suprapubic region is visualized with a focal bowel loop visualized at this location could represent herniation of the wall of the ascending colon. BONES: No lytic or blastic abnormality. CT/Abdomen/Pelvis WITH Contrast IMPRESSION: Stranding of the anterior abdominal wall soft tissues in the suprapubic region with suggestion of herniation of the wall of the large bowel. Electronically Signed: Aba Rivera MD at 15:52 EDT ,
== END 2022-01-15 23:59 | disposition home or self-care (01) ==
LOC: CT 13:02
PROVIDERS: Visit Provider Family Medicine
DX: R10.30 Lower abdominal pain, unspecified (principal); Z93.6 Other artificial openings of urinary tract status; Z93.3 Colostomy status; E11.9 Type 2 diabetes mellitus without complications
CPT/HCPCS: 36415; 74177; 80053; 83036; 85027; 85652; 86140; Q9967

== ENCOUNTER → 2022-01-31 | Outpatient (CLI) | payer MEDICARE, OTHER, SELFPAY ==
[2022-01-31 15:48] LABS: Absolute Lymphocyte Count 2.06 X10^3/uL (0.83-4.51); Absolute Neutrophil Count 5.9 X10^3/uL (2.0-7.7); Basophil# 0.04 X10^3/uL; Basophil% 0.4 % (0-1); Eosinophil# 0.23 X10^3/uL; Eosinophils% 2.6 % (0-5); Hematocrit 40.9 % (40-54); Hemoglobin 13.6 g/dL (13.0-16.5); Lymphocyte # 2.06 X10^3/ul (0.83-4.51); Lymphocyte % 22.9 % (19-41); Mean Corp Hgb Conc 33.3 g/dL (32-36); Mean Corpuscular Hgb 29.6 pg (27.0-32.0); Mean Corpuscular Volume 88.9 fL (80-94); Mean Platelet Vol. 11.2 fl (6.2-12.0); Monocyte# 0.74 X10^3/uL; Monocyte% 8.2 % (0-10); NRBC Flagged by Analyzer 0 % (0-5); Neutrophil # 5.89 X10^3/uL (2.7-7.7); Neutrophil % 65.6 % (47-70); Platelet Count 173 K/mm3 (150-450); RBC Distribution Width SD 45.1 fl (35.1-43.9)
[2022-01-31 20:34] LABS: Erythrocyte Sedimentation Rate 53 mm/hr (0-20)
== END | disposition home or self-care (01) ==
LOC: MFPLAB 14:21
PROVIDERS: PCP Family Medicine; Referring Provider Family Medicine; Visit Provider Family Medicine
DX: R10.30 Lower abdominal pain, unspecified (principal)
CPT/HCPCS: 36415; 85025; 85652; 86140

== ENCOUNTER → 2022-03-14 | Outpatient (CLI) | payer MEDICARE, OTHER, SELFPAY ==
--- NOTE | 2022-03-14 13:42 | CT_ITS ---
STUDY: CT CHEST WITHOUT CONTRAST REASON FOR EXAM: Male, 76 years old. LUNG NODULE. History of bladder cancer. Prior smoker. RADIATION DOSAGE (If Supplied By Facility): CTDIvol = ( 8.29 ) mGy, DLP = ( 290.60 ) mGycm TECHNIQUE: Transaxial imaging was performed without the administration of intravenous contrast material. Multiplanar coronal and sagittal images were reformatted. Individualized dose optimization techniques were used for this CT. COMPARISON: Comparison is made with prior examination dated 08/28/2021. FINDINGS: CHEST Hyperinflation. Diffuse emphysematous changes worse in the upper lobes with bullous formation. Stable 3 mm noncalcified nodule in the right lung apex. Stable mild scarring and bronchiectasis in the anterior aspect of the right middle lobe. Stable 7 mm noncalcified nodule in the peripheral lateral aspect of the left lower lobe as seen on axial image #95. There is no demonstrated pleural abnormality. There are calcifications of the coronary arteries. There are multiple small lymph nodes within the mediastinum, which are normal in size and morphology most compatible with reactive lymph hyperplasia. Normal hilar regions. Normal unenhanced pulmonary arteries. There is atherosclerotic calcification of the aortic arch with tortuosity and elongation of the aortic arch and descending thoracic aorta. There are multi-level degenerative changes of the thoracic spine. 4.7 cm x 4.6 cm cyst in the upper pole of the right kidney. 2.3 cm cyst in the lateral aspect of the left lobe of liver adjacent to the gallbladder fossa. CT/Chest without Contrast IMPRESSION: Stable examination. Electronically Signed: Alphonse Ling MD at 14:28 EDT ,
== END | disposition home or self-care (01) ==
LOC: CT 13:41
PROVIDERS: PCP Family Medicine; Referring Provider Internal Medicine Pulmonary Disease; Visit Provider Internal Medicine Pulmonary Disease
DX: R91.1 Solitary pulmonary nodule (principal)
CPT/HCPCS: 71250

== ENCOUNTER 2022-05-13 13:27 | Inpatient (IN) | payer MEDICARE, OTHER, SELFPAY ==
[2022-05-13] VITALS (7 sets, daily range): BP systolic 102–133; BP diastolic 52–78; PULSE 76–98; RESP 16–20; TEMP 36.9–37.6; O2SAT 98–100; BMI 27.3; BMI 25.5
--- NOTE | 2022-05-13 13:53 | CT_ITS ---
STUDY: CT ABDOMEN AND PELVIS WITH CONTRAST REASON FOR EXAM: Male, 76 years old. RECENT ABD SURG-LEAKING AT SITE, BLADDER CA,HTN, UROSTOMY, COLOSTOMY,FISTULA REPAIR,BILAT HIPS RADIATION DOSAGE (If Supplied By Facility): CTDIvol = ( 15.18 ) mGy, DLP = ( 854.6 ) mGycm TECHNIQUE: Transaxial images were obtained from the dome of the diaphragm to the symphysis pubis without oral contrast. IV 100mL Isovue-370 was administered. Sagittal and coronal images were reconstructed. Individualized dose optimization techniques were used for this CT. COMPARISON: 12/15/2021 CT abdomen and pelvis FINDINGS: Left lower lobe bleb with adjacent focal density representing airspace disease, fluid or nodule measuring 1 cm is noted. (Series 2 image 13). The visualized portions of the heart are within normal limits. Incidental right hepatic lobe hypodensity along the periphery anteriorly measuring 2.3 cm consistent with likely hepatic cyst. Gallbladder is contracted. Normal spleen. Normal pancreas. Normal bilateral adrenal glands. Large right renal posterior lobulated simple appearing cyst is probable resident measuring 5.8 cm in diameter. Normal left kidney. Normal visualized stomach. Normal small intestine. There is demonstrated patulous appearance of the cecum which is similar compared to the prior exam with no evidence of definitive obstruction. The appendix is visualized and appears normal. Normal abdominal aorta. Normal inferior vena cava. Normal retroperitoneum. Normal urinary bladder. Within the inferior posterior pelvis is noted irregular fluid collection Anterior abdominal dermal marcelina are in place with mild fluid layering along the staple margin and anterior abdominal fascia. Within the lower aspect of the incision site is a small collection of intra-abdominal air and fluid layering measuring 2.0 x 3.1 x 2.7 cm which is concerning for underlying gas-forming organisms and early phlegmon with iatrogenic air also a consideration. Normal osseous structures. CT/Abdomen/Pelvis W IV Cont ONLY IMPRESSION: 1. Anterior midline abdominal surgery with sutures in place with the lower segment demonstrating a likely nonenteric small air-fluid level measuring 2.0 x 3.1 x 2.7 cm concerning for early phlegmon abutting the anterior abdominal lower wall near the lower incision site with other considerations including iatrogenic air and mesenteric air not completely excluded. This region demonstrates scattered layering mild fluid along the anterior abdominal wall. Clinically correlate for infectious setting along the anterior inferior incision site. 2. Within the lower posterior pelvis is a irregular fluid collection with scattered areas of air concerning for additional early abscess/phlegmon measuring 4.0 x 2.7 x 6.0 cm with fluid extending to the lower perianal region. 3. Patulous appearance of the cecum which is similar compared to the prior exam with no evidence of underlying obstruction. 4. Left lower lobe lung phlebolith adjacent apparent nodule measuring 1 cm which may also represent small fluid collection versus airspace disease, recommend short-term follow-up to document stability versus resolution and exclude underlying lung nodule. Electronically Signed: Chevy Murphy DO at 15:53 EDT ,
--- NOTE | 2022-05-13 13:56 | ED.VIS.GI ---
HPI HPI - GI History of Present Illness Chief Complaint: Abd Pain Narrative Narrative: 76-year-old male presenting for evaluation of postoperative wounds. Patient had a colostomy bag placed as well as a urostomy about a week and a half ago by Dr. John Mullins at [facility]. 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 Patient states that he was doing otherwise well until yesterday when he noticed his urostomy was putting out more frequently. He states the lower aspect of his abdominal wound dehisced and there is pus coming out of it. He states that he has had the chills. He has not had a fever. He states that he believes he has bowel hanging from his rectum. Patient also reports that he restarted his Coumadin postoperatively. He is on this for paroxysmal A. fib. He denies black or bloody stools, PFSH PFSH Medical History Atherosclerosis of coronary artery of [place] heart without angina pectoris Cellulitis of right abdominal wall Essential hypertension Fistula Hearing loss HISTORY FISTULA REPAIRED History of bladder cancer History of multiple strokes History of stroke Hyperlipemia Hypertension Paroxysmal atrial fibrillation Smoking greater than 30 pack years Home Medications multivitamin 1 tab PO DAILY GENERAL HEALTH 03/17/19 [History Last Taken 08/15/19] atorvastatin 20 mg tablet 20 mg PO DAILY HIGH CHOLESTROL #90 tabs 04/29/19 [Rx Last Taken 08/15/19] warfarin 6 mg tablet 6 mg PO DAILY HISTORY OF STROKE #90 tabs 06/11/19 [Rx Last Taken 08/14/19] ascorbic acid (vitamin C) 1,000 mg tablet 500 mg PO DAILY 08/03/19 [History Last Taken 08/15/19] metoprolol succinate 25 mg tablet,extended release 24 hr 25 mg PO DAILY #30 tabs 02/20/21 [Rx Last Taken Unknown] lisinopril 20 mg tablet 20 mg PO DAILY 05/13/22 [History Last Taken Unknown] warfarin 4 mg tablet 5 mg PO DAILY 05/13/22 [History Last Taken Unknown] Allergy/AdvReac Type Severity Reaction Status Date / Time azithromycin [From Zithromax] Allergy Severe Hives Verified 11/28/20 14:28 meloxicam [From Mobic] Allergy PT UNSURE Verified 05/13/22 13:55 OF REACTION Family History Brother Heart disease Father Cancer Heart disease Mother Heart disease Surgical History History of bilateral hip replacements History of shoulder surgery History of urostomy Status post colostomy Status post colostomy Status post exploratory laparotomy Social History Smoking Status: Former smoker alcohol intake: never substance use type: does not use what type of physical activity do you participate in: none ROS ROS ED Constitutional Constitutional ED: Reports chills; Denies fever(s) or subjective ENT ENT ED: Denies rhinorrhea or sore throat Cardiovascular Cardiovascular: Denies chest pain Respiratory/Chest Respiratory/Chest: Denies cough or dyspnea Gastrointestinal Gastrointestinal: Reports abdominal pain and nausea Genitourinary Genitourinary ED: Denies dysuria or hematuria Musculoskeletal Musculoskeletal: Denies arthralgias Integumentary Reports other Details: Dehiscence of lower midline abdominal wound with purulent discharge. Neurologic Neurologic: Denies headache(s) or paresthesias Psychiatric Psychiatric: Denies anxiety EXAM Physical Exam Const Vital Signs: 05/13/22 13:30 05/13/22 15:57 Temperature 99.7 F H Temperature Source Oral Pulse Rate 98 78 Respiratory Rate 18 16 Blood Pressure 133/52 H 102/61 Blood Pressure Mean 79 74 Pulse Ox 98 99 Oxygen Delivery Method Room Air Room Air Positive well nourished General Appearance ED: NAD; Negative for pallor HEENT Reports moist mucous membranes normocephalic and atraumatic Eyes General Eye ED: Negative for pale conjunctiva or scleral icterus Resp normal respiratory effort and clear to auscultation bilaterally Auscultation: Negative for rales, rhonchi or wheezes Cardio regular rate and regular rhythm GI GI Narrative: Diffuse generalized tenderness. There is a midline surgical scar with marcelina extending from the mid abdomen down to the umbilical region. The bottom marcelina are and there is purulent discharge from this area. He is tender to palpation in the lower abdomen. There is a colostomy on the left side of his abdomen and a urostomy on the right. Both have output in them. On rectal exam there is no hemorrhoids. There is no stool coming out of the rectum. There are no loops of bowel out of the rectum. No blood noted. Neuro CN's II-XII intact bilaterally Sensorium / Orientation: alert, oriented to person, oriented to place and oriented to time Motor Exam: strength 5/5 throughout Psych mental status grossly normal Skin General Skin Exam: Negative for jaundice or pallor MDM MDM MDM Narrative Medical decision making narrative: Patient presenting with chills and worsening abdominal pain. He states he had urostomy and ileostomy output which is increased. He has not had a fever. He does have drainage from his lower abdominal site where his wound is dehisced. IV was established. IV fluids were given. Patient empirically covered with IV Zosyn. CBC shows a leukocytosis of 14.6. Hemoglobin is 9.9 which is lower however this is new since his recent surgery and that will have a new baseline. PT and INR normal. Creatinine 1.41 and will have any comparison since his previous surgery. Calcium slightly low at 3.3. This was repleted via IV. Patient was also given a liter of IV fluids.. Patient's lactic acid came back at 2.2. Urinalysis showed positive nitrites with 3+ bacteria. I spoke with Dr. Ford who is on-call for Dr. Mullins. He stated that a positive urinalysis with the ileostomy does not necessarily mean he has an infection. He also stated that he request a CT scan be performed before he makes any decisions. He did not think the patient acutely needed to be admitted at that point. He did agree with giving Zosyn and did not request any other medications given after asked. Patient has CT of the abdomen pelvis with IV contrast shown below that shows concern for iatrogenic tear versus gas-forming organisms. Also concern for possible abscess. I did speak with the surgeon again and he recommended transfer. Patient is currently awaiting a bed. I again asked if he wanted further antibiotics and he said no. 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 Impression: 1. Postoperative infection 2. Leukocytosis 3. Acute kidney injury 4. Anemia 5. UTI Lab Data Attestation: I reviewed the patient's lab results. Labs: Laboratory Results - last 24 hr 05/13/22 05/13/22 05/13/22 13:40 13:40 13:40 WBC 14.6 H RBC 3.44 L Hgb 9.9 L Hct 30.4 L MCV 88.4 MCH 28.8 MCHC 32.6 RDW Std Deviation 47.0 H RDW Coeff of Carie 14.7 H Plt Count 261 MPV 10.5 Immature Gran % (Auto) 1.700 H Neut % (Auto) 84.0 H Lymph % (Auto) 7.7 L [place] % (Auto) 6.5 Eos % (Auto) 0.0 Baso % (Auto) 0.1 Absolute Neuts (auto) 12.3 H Absolute Lymphs (auto) 1.12 Nucleated RBC % 0 PT 29.6 H INR 2.8 Sodium 136 Potassium 3.3 L Chloride 106 Carbon Dioxide 21.0 Anion Gap 9 BUN 19 H Creatinine 1.41 H Estim Creat Clear Calc 44.47 Est GFR (MDRD) Af Amer 63 Est GFR (MDRD) Non-Af 52 L BUN/Creatinine Ratio 13.5 Glucose 142 H Lactic Acid Calcium 8.8 Total Bilirubin 0.50 AST 22 ALT 27 Alkaline Phosphatase 67 Total Protein 6.6 Albumin 2.1 L Globulin 4.5 H Albumin/Globulin Ratio 0.5 L Lipase 240 Urine Color Urine Clarity Urine pH Ur Specific [place] Urine Protein Urine Glucose (UA) Urine Ketones Urine Occult Blood Urine Nitrite Urine Bilirubin Urine Urobilinogen Ur Leukocyte Esterase Urine RBC Urine WBC Ur Squamous Epith Cells Urine Bacteria Urine Mucus 05/13/22 05/13/22 13:40 14:10 WBC RBC Hgb Hct MCV MCH MCHC RDW Std Deviation RDW Coeff of Carie Plt Count MPV Immature Gran % (Auto) Neut % (Auto) Lymph % (Auto) [place] % (Auto) Eos % (Auto) Baso % (Auto) Absolute Neuts (auto) Absolute Lymphs (auto) Nucleated RBC % PT INR Sodium Potassium Chloride Carbon Dioxide Anion Gap BUN Creatinine Estim Creat Clear Calc Est GFR (MDRD) Af Amer Est GFR (MDRD) Non-Af BUN/Creatinine Ratio Glucose Lactic Acid 2.2 H* Calcium Total Bilirubin AST ALT Alkaline Phosphatase Total Protein Albumin Globulin Albumin/Globulin Ratio Lipase Urine Color Yellow Urine Clarity Clear Urine pH 8.0 Ur Specific [place] 1.010 Urine Protein 30 H Urine Glucose (UA) Normal Urine Ketones 15 H Urine Occult Blood 150 H Urine Nitrite Positive H Urine Bilirubin Negative Urine Urobilinogen Normal Ur Leukocyte Esterase 100 H Urine RBC 0-5 SEEN Urine WBC 10-25 SEEN Ur Squamous Epith Cells 0 SEEN Urine Bacteria 3+ Urine Mucus 0 SEEN Radiography Diagnostic Testing: Clinical Impression(s) from Imaging Studies Abdomen/Pelvis CT 05/13/22 13:53 IMPRESSION: 1. Anterior midline abdominal surgery with sutures in place with the lower segment demonstrating a likely nonenteric small air-fluid level measuring 2.0 x 3.1 x 2.7 cm concerning for early phlegmon abutting the anterior abdominal lower wall near the lower incision site with other considerations including iatrogenic air and mesenteric air not completely excluded. This region demonstrates scattered layering mild fluid along the anterior abdominal wall. Clinically correlate for infectious setting along the anterior inferior incision site. 2. Within the lower posterior pelvis is a irregular fluid collection with scattered areas of air concerning for additional early abscess/phlegmon measuring 4.0 x 2.7 x 6.0 cm with fluid extending to the lower perianal region. 3. Patulous appearance of the cecum which is similar compared to the prior exam with no evidence of underlying obstruction. 4. Left lower lobe lung phlebolith adjacent apparent nodule measuring 1 cm which may also represent small fluid collection versus airspace disease, recommend short-term follow-up to document stability versus resolution and exclude underlying lung nodule. Electronically Signed: Chevy Murphy DO at 15:53 EDT Reading Location ID and State: [facility] / [place] , Service support , Discharge Plan Triage Chief Complaint: Abd Pain ED Provider: Sedrick Avila Dx/Rx/DC Orders Prescriptions: No Action multivitamin tablet 1 tab PO DAILY ascorbic acid (vitamin C) 1,000 MG tablet 500 mg PO DAILY lisinopril 20 mg tablet 20 mg PO DAILY warfarin 4 mg tablet 5 mg PO DAILY Rx Instructions: take saturday and saturday atorvastatin 20 mg tablet 20 mg PO DAILY Qty: 90 3RF warfarin 6 mg tablet 6 mg PO DAILY Qty: 90 3RF Protocol: Dose Management Protocol Text: Patient Instructed to take: warfarin 6 mg (1 Tab) on , MO, , , , warfarin 6 mg (1.5 Tabs) on SA metoprolol succinate 25 mg tablet extended release 24 hr 25 mg PO DAILY Qty: 30 0RF Primary Care Provider: Chana Evans Referrals: Nilay Allen MD [Med Staff - Time Study Technologist] -
[2022-05-13 14:09] LABS: Absolute Lymphocyte Count 1.12 X10^3/uL (0.83-4.51); Absolute Neutrophil Count 12.3 X10^3/uL (2.0-7.7); Basophil# 0.02 X10^3/uL; Basophil% 0.1 % (0-1); Hematocrit 30.4 % (40-54); Hemoglobin 9.9 g/dL (13.0-16.5); Lymphocyte # 1.12 X10^3/ul (0.83-4.51); Lymphocyte % 7.7 % (19-41); Mean Corp Hgb Conc 32.6 g/dL (32-36); Mean Corpuscular Hgb 28.8 pg (27.0-32.0); Mean Corpuscular Volume 88.4 fL (80-94); Mean Platelet Vol. 10.5 fl (6.2-12.0); Monocyte# 0.95 X10^3/uL; Monocyte% 6.5 % (0-10); NRBC Flagged by Analyzer 0 % (0-5); Neutrophil # 12.25 X10^3/uL (2.7-7.7); Platelet Count 261 K/mm3 (150-450); RBC Distribution Width CV 14.7 % (11.6-14.6); Red Blood Count 3.44 M/mm3 (4.6-6.2); White Blood Count 14.6 K/mm3 (4.4-11.0)
--- NOTE | 2022-05-13 14:20 | ED.RN ---
CALLED [facility] FOR DR BOWIE FOR COLIRECTAL SURG
[2022-05-13 14:24] LABS: ALB/GLOB Ratio 0.5 RATIO (0.9-2.4); AST(SGOT) 22 U/L (15-37); Alanine Aminotransfer ALT/SGPT 27 U/L (16-61); Albumin, Serum 2.1 g/dL (3.2-5.0); Alkaline Phosphatase 67 U/L (45-117); Anion Gap 9 (5-15); BUN 19 mg/dL (7-18); BUN/Creat Ratio 13.5 RATIO (10-20); Calcium,Total 8.8 mg/dL (8.5-10.1); Chloride 106 mmol/L (98-107); Creatinine, Serum 1.41 mg/dL (0.70-1.30); EST Glomerular Filtration Rate 52 mL/min (>60); Est Glom Filt Rate - Afr Amer 63 mL/min (>60); Estimated Creatinine Clearance 44.47 ml/min; Globulin 4.5 g/dL (2.2-4.2); Glucose 142 mg/dL (74-106); Lipase 240 U/L (73-393); Potassium 3.3 mmol/L (3.5-5.1); Protein, Total 6.6 g/dL (6.4-8.2); Sodium Level 136 mmol/L (136-145)
[2022-05-13 14:28] LABS: Mucous, Urine 0 SEEN /hpf (<or=2+); Squamous Epithelial Cells - UA 0 SEEN /hpf (0-5)
[2022-05-13 14:29] LABS: Color, Urine Yellow (Yellow); Glucose, Dipstick Normal (Normal); Ketone-Dipstick 15 mg/dl (Negative); Leukocyte Esterase-Dipstick 100 /ul (Negative); Nitrite-Dipstick Positive (Negative); Occult Blood-Urine 150 /ul (Negative); Protein-Dipstick 30 mg/dl (Negative); Urine Bilirubin Dipstick Negative (Negative); Urine Clarity Clear (Clear); Urine Urobilinogen Normal (Normal)
--- NOTE | 2022-05-13 14:35 | ED.RN ---
[facility] CALLED BACK
[2022-05-13 14:39] LABS: Bacteria 3+ /hpf (None Seen); Red Blood Cells-Urine 0-5 SEEN /hpf (0-5); White Blood Cells 10-25 SEEN /hpf (0-5)
[2022-05-13] MEDS: 0.9% Normal Saline 1,000 ML 999 ML IV (14:41)
[2022-05-13 14:44] LABS: Lactic Acid 2.2 mmol/L (0.4-1.9)
[2022-05-13 14:57] LABS: International Normalized Ratio 2.8; Prothrombin Time (Protime)PT. 29.6 SECONDS (11.7-14.9)
[2022-05-13 18:05] LABS: Reflex Lactate? Y
[2022-05-13] MEDS: Potassium Chloride 10mEq/100mL 10 MEQ/100 ML IV.SOLN. 100 MEQ IV BOLUS ×2 (18:39→19:48)
[2022-05-13 19:02] LABS: Lactic Acid 1.1 mmol/L (0.4-1.9)
[2022-05-13 22:05] LABS: Magnesium 1.9 mg/dL (1.6-2.6); Phosphorus 1.8 mg/dL (2.5-4.9)
--- NOTE | 2022-05-13 22:07 | EKG12_ITS ---
Test Reason : Blood Pressure : / mmHG Vent. Rate : 073 BPM Atrial Rate : 073 BPM P-R Int : 136 ms QRS Dur : 102 ms QT Int : 414 ms P-R-T Axes : 088 048 059 degrees QTc Int : 456 ms Sinus rhythm with Premature atrial complexes Otherwise normal ECG No previous ECGs available Confirmed by HARVEY TREJO, DALLAS ([id number]), clinical editor YENI GRAF ([id number]) on 05/15/2022 11:18:04 AM Referred By: Confirmed By:DALLAS GABRIEL MD
--- NOTE | 2022-05-13 22:15 | RAD_ITS ---
EXAM: XR CHEST, 1 VIEW CLINICAL INDICATION: sob TECHNIQUE: Frontal view of the chest. This report was created using [employer] [address] report generation technology. COMPARISON: None. FINDINGS: LUNGS AND PLEURAL SPACES: Unremarkable. No consolidation or edema. No pneumothorax. No effusion. HEART: Unremarkable. Cardiac silhouette not enlarged. MEDIASTINUM: Atherosclerotic calcifications of the nonenlarged thoracic aortic arch. Central airways and mediastinal contour are unremarkable. BONES/JOINTS: Degenerative changes of acromioclavicular joints and spine. SOFT TISSUES: Unremarkable. RAD/Chest 1 View (Portable) IMPRESSION: No acute findings in the chest. Electronically Signed: Pito James MD at 23:01 EDT ,
--- NOTE | 2022-05-13 22:16 | HP.PCM.HOS_ITS ---
[facility] - General General Date of Admission: 05/13/22 Date of Service: 05/13/22 Chief Complaint: Abdominal pain, purulent discharge from wound dehiscence, fever, postop complication with intra-abdominal abscesses HPI Narrative RADHA JOHNSON, is a 76 M with history of bladder cancer with for surgery cystectomy, urostomy in 2016 after that multiple surgeries for fistula, last 1 on [address] [facility] [address] John Mullins, colorectal surgeon with end colostomy. Patient having abdominal pain for last 3 days intermittently when he stands up or move along with fever and chills. Today when he stood up he saw wound dehiscence and purulent discharge came out. Therefore he called EMS and brought to ED. EMS vitals were pulse 90/min, BP 140/70. In ED, patient is stated his abdominal pain got better after 1 day since then discharge. He denies vomiting, hematemesis, melena or hematochezia. Colostomy bag is filled with yellowish liquidy stool. He also feels bowel hanging from his rectum. Patient is on warfarin for paroxysmal A. fib with history of a stroke and INR is therapeutic. Vitals in the ED reviewed and is in normal range. Patient had CT abdomen and pelvis in ED which shows 2 abscesses in the mid abdomen. Patient has leukocytosis with left shift hold if glucose less than 130 mg/dl elevated BUN and creatinine. Labs and imaging discussed in detail in assessment and plan. ED physician called [facility] and patient accepted there but there will not be a bed available for next 24 to 48 hours therefore patient is admitted in telemetry. [facility] Medical History (Updated 05/13/22 @ 23:43 by Betty Chairez) Atherosclerosis of coronary artery of [place] heart without angina pectoris Cellulitis of right abdominal wall Essential hypertension Fistula Hearing loss HISTORY FISTULA REPAIRED History of bladder cancer History of multiple strokes History of stroke Hyperlipemia Hypertension Kidney stones Paroxysmal atrial fibrillation Smoking greater than 30 pack years Wears hearing aid in both ears Home Medications multivitamin 1 tab PO DAILY GENERAL HEALTH 03/17/19 [History Last Taken 08/15/19] atorvastatin 20 mg tablet 20 mg PO DAILY HIGH CHOLESTROL #90 tabs 04/29/19 [Rx Last Taken 08/15/19] warfarin 6 mg tablet 6 mg PO DAILY HISTORY OF STROKE #90 tabs 06/11/19 [Rx Last Taken 11/15/19] ascorbic acid (vitamin C) 1,000 mg tablet 500 mg PO DAILY 08/03/19 [History Last Taken 08/15/19] metoprolol succinate 25 mg tablet,extended release 24 hr 25 mg PO DAILY #30 tabs 02/20/21 [Rx Last Taken Unknown] lisinopril 20 mg tablet 20 mg PO DAILY 05/13/22 [History Last Taken Unknown] warfarin 4 mg tablet 5 mg PO DAILY 05/13/22 [History Last Taken Unknown] Allergy/AdvReac Type Severity Reaction Status Date / Time azithromycin [From Zithromax] Allergy Severe Hives Verified 11/28/20 14:28 meloxicam [From Mobic] Allergy PT UNSURE Verified 05/13/22 13:55 OF REACTION Family History Brother Heart disease Father Cancer Heart disease Mother Heart disease Surgical History History of bilateral hip replacements History of shoulder surgery History of urostomy Status post colostomy Status post colostomy Status post exploratory laparotomy Social History Smoking Status: Former smoker alcohol intake: never substance use type: does not use what type of physical activity do you participate in: none ROS ROS Narrative Constitutional: Reports fatigue and weakness. Intermittent fever HEENT: Reports systems reviewed and no addt'l complaints, except as documented Respiratory/Chest: Denies chest pain, shortness of breath at rest, mild shortne ss of breath on exertion Gastrointestinal: Denies coffee ground emesis, hematemesis or vomiting. Co lostomy and urostomy. Wound sutured, lower abdominal dehiscence Genitourinary: Urostomy bag. Musculoskeletal: Does not report joint pain and limited range of motion Neurologic: Denies seizure-like activity skin: Postop wound dehiscence in the midline in the abdomen Endocrinology: Reports systems reviewed and no addt'l complaints, except as documented Hematologic/Lymphatic: Reports systems reviewed and no addt'l complaints, except as documented Rest 14 ROS are negative except as mentioned in HPI Vital Signs Vital Signs Vital Signs: 05/13/22 13:30 05/13/22 15:57 05/13/22 17:28 Temperature 99.7 F H Temperature Source Oral Pulse Rate 98 78 76 Respiratory Rate 18 16 20 H Blood Pressure 133/52 H 102/61 108/52 L Blood Pressure Mean 79 74 70 Pulse Ox 98 99 99 Oxygen Delivery Method Room Air Room Air Room Air 05/13/22 19:20 05/13/22 21:45 05/13/22 22:13 Temperature 98.4 F Temperature Source Oral Pulse Rate 80 83 78 Respiratory Rate 20 H 20 H 20 H Blood Pressure 127/64 H 124/66 H 124/78 H Blood Pressure Mean 85 85 93 Pulse Ox 100 98 98 Oxygen Delivery Method Room Air Room Air Room Air Weight Weight: 180 lb 1.883 oz Body Mass Index (BMI) 27.3 Physical Exam Narrative General: Alert, Oriented x3, Cooperative HEENT: Very hard of hearing ears hearing aid atraumatic, PERRLA, EOMI, Normocephalic Oral: Oral mucosa dry. No Gingival or Mucosal Lesions/ Ulcerations Neck: Supple, No JVD, Negative Carotid Bruits Lungs: Air entry diminished in bilateral lung bases. No crepitation/rhonchi Cardiovascular: Regular rate, Regular Rhythm, Normal S1, Normal S2, No murmurs Abdomen: Bowel Sounds Present, Soft, Non Tender, Non-Distended. Urostomy and colostomy present. Lower midline marcelina are open, wound edges and with purulent discharge. : No renal angle tenderness. No suprapubic tenderness. Extremities: No edema, Capillary Refill Less than 3 Seconds Skin: Purulent discharge with dressing soaked with discharge. Musculoskeletal: No Tenderness to Palpation of Joints or Extremities. Muscle strength 4/5 at major joints. Moderate atrophy of muscles of extremities. Neurological: Cranial nerves II-XII grossly intact, DTR 2+/4 Psych/Mental Status: Flat affect. Results Lab / Micro Data Result Diagrams: 05/13/22 13:40 05/13/22 13:40 Labs: Laboratory Results - last 24 hr 05/13/22 13:40: WBC 14.6 H, RBC 3.44 L, Hgb 9.9 L, Hct 30.4 L, MCV 88.4, MCH 28.8, MCHC 32.6, RDW Std Deviation 47.0 H, RDW Coeff of Carie 14.7 H, Plt Count 261, MPV 10.5, Immature Gran % (Auto) 1.700 H, Neut % (Auto) 84.0 H, Lymph % (Auto) 7.7 L, Screven % (Auto) 6.5, Eos % (Auto) 0.0, Baso % (Auto) 0.1, Absolute Neuts (auto) 12.3 H, Absolute Lymphs (auto) 1.12, Nucleated RBC % 0 05/13/22 13:40: PT 29.6 H, INR 2.8 05/13/22 13:40: Sodium 136, Potassium 3.3 L, Chloride 106, Carbon Dioxide 21.0, Anion Gap 9, BUN 19 H, Creatinine 1.41 H, Estim Creat Clear Calc 44.47, Est GFR (MDRD) Af Amer 63, Est GFR (MDRD) Non-Af 52 L, BUN/Creatinine Ratio 13.5, Glucose 142 H, Calcium 8.8, Total Bilirubin 0.50, AST 22, ALT 27, Alkaline Phosphatase 67, Total Protein 6.6, Albumin 2.1 L, Globulin 4.5 H, Albumin/Globulin Ratio 0.5 L, Lipase 240 05/13/22 13:40: Lactic Acid 2.2 H* 05/13/22 13:40: Phosphorus 1.8 L, Magnesium 1.9 05/13/22 14:10: Urine Color Yellow, Urine Clarity Clear, Urine pH 8.0, Ur Specific Caney 1.010, Urine Protein 30 H, Urine Glucose (UA) Normal, Urine Ketones 15 H, Urine Occult Blood 150 H, Urine Nitrite Positive H, Urine Bilirubin Negative, Urine Urobilinogen Normal, Ur Leukocyte Esterase 100 H, Urine RBC 0-5 SEEN, Urine WBC 10-25 SEEN, Ur Squamous Epith Cells 0 SEEN, Urine Bacteria 3+, Urine Mucus 0 SEEN 05/13/22 18:25: Lactic Acid 1.1 Micro: Microbiology 05/13/22 14:15 Nasal Secretion SARS-CoV-2 Antigen (Rapid) - Final Radiology Impression Abdomen/Pelvis CT 05/13/22 13:53 IMPRESSION: 1. Anterior midline abdominal surgery with sutures in place with the lower segment demonstrating a likely nonenteric small air-fluid level measuring 2.0 x 3.1 x 2.7 cm concerning for early phlegmon abutting the anterior abdominal lower wall near the lower incision site with other considerations including iatrogenic air and mesenteric air not completely excluded. This region demonstrates scattered layering mild fluid along the anterior abdominal wall. Clinically correlate for infectious setting along the anterior inferior incision site. 2. Within the lower posterior pelvis is a irregular fluid collection with scattered areas of air concerning for additional early abscess/phlegmon measuring 4.0 x 2.7 x 6.0 cm with fluid extending to the lower perianal region. 3. Patulous appearance of the cecum which is similar compared to the prior exam with no evidence of underlying obstruction. 4. Left lower lobe lung phlebolith adjacent apparent nodule measuring 1 cm which may also represent small fluid collection versus airspace disease, recommend short-term follow-up to document stability versus resolution and exclude underlying lung nodule. Electronically Signed: Chevy Murphy, DO at 15:53 EDT , Assessment & Plan Assessment/Plan (1) Wound infection after surgery: (2) Hypokalemia: (3) Abdominopelvic abscess: PLAN: Plan This is a 26-year-old with history of bladder cancer status post multiple surgery for postop intestinal fistula, last 1 on April 26, 2022 came with postop wound complications 1. Postop wound infection with 2 intra-abdominal abscesses/phlegmon: Patient had wound dehiscence today with purulent discharge. CT abdomen pelvis individually reviewed and shows nonenteric a small air-fluid level measuring 2 x 3.1 x 2.7 cm concerning for early phlegmon admitting anterior abdominal wall wall new lower incision site. In lower posterior pelvic and irregular fluid collection concerning for early abscess/phlegmon measuring 4 x 2.7 x 6 cm with fluid extending to the lower perianal region. Patient has leukocytosis with left shift, lactic acidosis, fever with evidence of phlegmon/abscess in CT therefore started on IV antibiotic Zosyn. Currently patient clinical findings labs do not meet criteria and definition of sepsis. General surgery Dr. Severnio is consulted. Patient is aware that he is admitted in the interim. To [facility] which might take 24 to 48 hours. IV fluid normal saline. Monitor intake and output. Continue soft diet. 2. NICHOLAS on CKD stage IIIa with hypokalemia, hypophosphatemia: Electrolytes, IV KCl and phosphorus are getting replaced. Monitor BMP and phosphorus tomorrow AM. 3. Bladder cancer status post multiple surgery comparably last one, fifth surgery complicated with intestinal fistula: Patient was last admitted in February 2019 for lower abdomen/pelvic wall fistula continued rectal stump of Amado's pouch: 4. Paroxysmal A. fib with 3 strokes in 1996 2007 and 2012 but no residual deficit as per patient: Patient had last echo in 2019 reported EF 55 to 60% with mildly dilated LV, stage I pressure dysfunction suggestive of chronic diastolic heart failure. 5. Other comorbidities include hypertension, dyslipidemia: Home medication reconciliation done. Living will/advanced directive/end of life care: Patient does have living will or advanced directive. His is power of commonwealth attorney for health. After discussion of benefits/risks procedures involved with full code, DNR CC arrest and DNR CC, the patient opted for DNRCC arrest with no intubation. Patient doesn't want artificial life support including intubation, tube feed, ventilator and/chest compression, central venous catheter, vasopressor and DC shock if needed Total time spent in [id number] encounter in discussion of advanced directive 16 minutes. Microbiology Past 72 Hours 05/13/22 14:15 Nasal Secretion SARS-CoV-2 Antigen (Rapid) - Final Laboratory Results 05/13/22 13:40: WBC 14.6 H, RBC 3.44 L, Hgb 9.9 L, Hct 30.4 L, MCV 88.4, MCH 28.8, MCHC 32.6, RDW Std Deviation 47.0 H, RDW Coeff of Carie 14.7 H, Plt Count 261, MPV 10.5, Immature Gran % (Auto) 1.700 H, Neut % (Auto) 84.0 H, Lymph % (Auto) 7.7 L, Screven % (Auto) 6.5, Eos % (Auto) 0.0, Baso % (Auto) 0.1, Absolute Neuts (auto) 12.3 H, Absolute Lymphs (auto) 1.12, Nucleated RBC % 0 05/13/22 13:40: PT 29.6 H, INR 2.8 05/13/22 13:40: Sodium 136, Potassium 3.3 L, Chloride 106, Carbon Dioxide 21.0, Anion Gap 9, BUN 19 H, Creatinine 1.41 H, Estim Creat Clear Calc 44.47, Est GFR (MDRD) Af Amer 63, Est GFR (MDRD) Non-Af 52 L, BUN/Creatinine Ratio 13.5, Glucose 142 H, Calcium 8.8, Total Bilirubin 0.50, AST 22, ALT 27, Alkaline P hosphatase 67, Total Protein 6.6, Albumin 2.1 L, Globulin 4.5 H, Albumin/Globulin Ratio 0.5 L, Lipase 240 05/13/22 13:40: Lactic Acid 2.2 H* 05/13/22 13:40: Phosphorus 1.8 L, Magnesium 1.9 05/13/22 14:10: Urine Color Yellow, Urine Clarity Clear, Urine pH 8.0, Ur Specific Caney 1.010, Urine Protein 30 H, Urine Glucose (UA) Normal, Urine Ketones 15 H, Urine Occult Blood 150 H, Urine Nitrite Positive H, Urine Bilirubin Negative, Urine Urobilinogen Normal, Ur Leukocyte Esterase 100 H, Urine RBC 0-5 SEEN, Urine WBC 10-25 SEEN, Ur Squamous Epith Cells 0 SEEN, Urine Bacteria 3+, Urine Mucus 0 SEEN 05/13/22 18:25: Lactic Acid 1.1 Clinical Impression(s) from Imaging Studies Abdomen/Pelvis CT 05/13/22 13:53 IMPRESSION: 1. Anterior midline abdominal surgery with sutures in place with the lower segment demonstrating a likely nonenteric small air-fluid level measuring 2.0 x 3.1 x 2.7 cm concerning for early phlegmon abutting the anterior abdominal lower wall near the lower incision site with other considerations including iatrogenic air and mesenteric air not completely excluded. This region demonstrates scattered layering mild fluid along the anterior abdominal wall. Clinically correlate for infectious setting along the anterior inferior incision site. 2. Within the lower posterior pelvis is a irregular fluid collection with scattered areas of air concerning for additional early abscess/phlegmon measuring 4.0 x 2.7 x 6.0 cm with fluid extending to the lower perianal region. 3. Patulous appearance of the cecum which is similar compared to the prior exam with no evidence of underlying obstruction. 4. Left lower lobe lung phlebolith adjacent apparent nodule measuring 1 cm which may also represent small fluid collection versus airspace disease, recommend short-term follow-up to document stability versus resolution and exclude underlying lung nodule. Electronically Signed: Chevy Murphy DO at 15:53 EDT , Charges/Coding Visit Charges Inpatient E&M: 36974 Init Hosp L3 Procedures Hospitalists Procedures: 83915 Advncd Care Plan 30 Min
[2022-05-14] VITALS (11 sets, daily range): BP systolic 122–154; BP diastolic 55–70; PULSE 65–79; RESP 16–18; TEMP 36.6–36.9; O2SAT 95–99
[2022-05-14] MEDS: 0.9% Saline Lock 10 ML Syringe IV ×2 (00:07→20:11)
[2022-05-14] MEDS: 0.9% Normal Saline 1,000 ML 100 ML IV ×2 (00:11→10:22)
[2022-05-14] MEDS: Acetaminophen 325 MG Tablet 650 MG PO ×2 (00:24→22:56)
[2022-05-14] MEDS: oxyCODONE 5 MG Tablet PO ×2 (00:24→22:57)
[2022-05-14 07:02] LABS: Absolute Lymphocyte Count 1.26 X10^3/uL (0.83-4.51); Basophil# 0.02 X10^3/uL; Basophil% 0.2 % (0-1); Eosinophil# 0.07 X10^3/uL; Eosinophils% 0.8 % (0-5); Hematocrit 27.4 % (40-54); Hemoglobin 8.9 g/dL (13.0-16.5); Lymphocyte # 1.26 X10^3/ul (0.83-4.51); Lymphocyte % 14.2 % (19-41); Mean Corp Hgb Conc 32.5 g/dL (32-36); Mean Corpuscular Hgb 28.8 pg (27.0-32.0); Mean Corpuscular Volume 88.7 fL (80-94); Mean Platelet Vol. 10.5 fl (6.2-12.0); Monocyte# 0.47 X10^3/uL; Monocyte% 5.3 % (0-10); NRBC Flagged by Analyzer 0 % (0-5); Neutrophil # 7.01 X10^3/uL (2.7-7.7); Neutrophil % 78.8 % (47-70); Platelet Count 214 K/mm3 (150-450); RBC Distribution Width CV 14.9 % (11.6-14.6); RBC Distribution Width SD 48.2 fl (35.1-43.9); Red Blood Count 3.09 M/mm3 (4.6-6.2); White Blood Count 8.9 K/mm3 (4.4-11.0)
[2022-05-14 07:40] LABS: Anion Gap 7 (5-15); BUN 16 mg/dL (7-18); BUN/Creat Ratio 14.8 RATIO (10-20); Calcium,Total 8.3 mg/dL (8.5-10.1); Chloride 111 mmol/L (98-107); Creatinine, Serum 1.08 mg/dL (0.70-1.30); EST Glomerular Filtration Rate 71 mL/min (>60); Est Glom Filt Rate - Afr Amer 86 mL/min (>60); Estimated Creatinine Clearance 58.06 ml/min; Glucose 82 mg/dL (74-106); Magnesium 2.1 mg/dL (1.6-2.6); Phosphorus 4.1 mg/dL (2.5-4.9); Potassium 3.8 mmol/L (3.5-5.1); Sodium Level 139 mmol/L (136-145)
--- NOTE | 2022-05-14 07:49 | PN.SURG_ITS ---
Subjective Subjective Patient is s/p creation of ileal reservoir and colostomy done at [facility] Noted drainage from lower aspect of wound on Saturday. He notes some pain in the area, he denies fevers. Objective Data Objective Data Vital Signs: Vital Signs Temp Pulse Resp BP Pulse Ox O2 Del Method 98 F 71 16 122/55 H 96 Room Air 05/14/22 03:41 05/14/22 03:55 05/14/22 03:41 05/14/22 03:41 05/14/22 03:41 05/14/22 03:41 Oxygen Delivery Method Room Air Weight: 76.5 kg Body Mass Index (BMI) 25.5 Intake & Output: Intake and Output for Last 24 Hours 05/12/22 05/13/22 05/14/22 23:59 23:59 23:59 Intake Total 1525 / 1525 326.35 / 326.35 Output Total 725 / 725 250 / 250 Balance 800 / 800 76.35 / 76.35 Lab / Micro Data Result Diagrams: 05/14/22 06:00 05/14/22 06:00 Labs: Laboratory Results - last 24 hr 05/13/22 13:40: WBC 14.6 H, RBC 3.44 L, Hgb 9.9 L, Hct 30.4 L, MCV 88.4, MCH 28.8, MCHC 32.6, RDW Std Deviation 47.0 H, RDW Coeff of Carie 14.7 H, Plt Count 261, MPV 10.5, Immature Gran % (Auto) 1.700 H, Neut % (Auto) 84.0 H, Lymph % ( Auto) 7.7 L, Garrett % (Auto) 6.5, Eos % (Auto) 0.0, Baso % (Auto) 0.1, Absolute Neuts (auto) 12.3 H, Absolute Lymphs (auto) 1.12, Nucleated RBC % 0 05/13/22 13:40: PT 29.6 H, INR 2.8 05/13/22 13:40: Sodium 136, Potassium 3.3 L, Chloride 106, Carbon Dioxide 21.0, Anion Gap 9, BUN 19 H, Creatinine 1.41 H, Estim Creat Clear Calc 44.47, Est GFR (MDRD) Af Amer 63, Est GFR (MDRD) Non-Af 52 L, BUN/Creatinine Ratio 13.5, Glucose 142 H, Calcium 8.8, Total Bilirubin 0.50, AST 22, ALT 27, Alkaline Phosphatase 67, Total Protein 6.6, Albumin 2.1 L, Globulin 4.5 H, Albumin/Globulin Ratio 0.5 L, Lipase 240 05/13/22 13:40: Lactic Acid 2.2 H* 05/13/22 13:40: Phosphorus 1.8 L, Magnesium 1.9 05/13/22 14:10: Urine Color Yellow, Urine Clarity Clear, Urine pH 8.0, Ur Specific [place]ridge 1.010, Urine Protein 30 H, Urine Glucose (UA) Normal, Urine Ketones 15 H, Urine Occult Blood 150 H, Urine Nitrite Positive H, Urine Matt irubin Negative, Urine Urobilinogen Normal, Ur Leukocyte Esterase 100 H, Urine RBC 0-5 SEEN, Urine WBC 10-25 SEEN, Ur Squamous Epith Cells 0 SEEN, Urine Bacteria 3+, Urine Mucus 0 SEEN 05/13/22 18:25: Lactic Acid 1.1 05/14/22 06:00: WBC 8.9, RBC 3.09 L, Hgb 8.9 L, Hct 27.4 L, MCV 88.7, MCH 28.8, MCHC 32.5, RDW Std Deviation 48.2 H, RDW Coeff of Carie 14.9 H, Plt Count 214, MPV 10.5, Immature Gran % (Auto) 0.700, Neut % (Auto) 78.8 H, Lymph % (Auto) 14.2 L, Garrett % (Auto) 5.3, Eos % (Auto) 0.8, Baso % (Auto) 0.2, Absolute Neuts (auto) 7.0, Absolute Lymphs (auto) 1.26, Nucleated RBC % 0 05/14/22 06:00: Sodium 139, Potassium 3.8, Chloride 111 H, Carbon Dioxide 21.0, Anion Gap 7, BUN 16, Creatinine 1.08, Estim Creat Clear Calc 58.06, Est GFR (MDRD) Af Amer 86, Est GFR (MDRD) Non-Af 71, BUN/Creatinine Ratio 14.8, Glucose 82, Calcium 8.3 L, Phosphorus 4.1, Magnesium 2.1 Micro: Microbiology 05/13/22 14:15 Nasal Secretion SARS-CoV-2 Antigen (Rapid) - Final Radiography Diagnostic Testing: Radiology Impression Abdomen/Pelvis CT 05/13/22 13:53 IMPRESSION: 1. Anterior midline abdominal surgery with sutures in place with the lower segment demonstrating a likely nonenteric small air-fluid level measuring 2.0 x 3.1 x 2.7 cm concerning for early phlegmon abutting the anterior abdominal lower wall near the lower incision site with other considerations including iatrogenic air and mesenteric air not completely excluded. This region demonstrates scattered layering mild fluid along the anterior abdominal wall. Clinically correlate for infectious setting along the anterior inferior incision site. 2. Within the lower posterior pelvis is a irregular fluid collection with scattered areas of air concerning for additional early abscess/phlegmon measuring 4.0 x 2.7 x 6.0 cm with fluid extending to the lower perianal region. 3. Patulous appearance of the cecum which is similar compared to the prior exam with no evidence of underlying obstruction. 4. Left lower lobe lung phlebolith adjacent apparent nodule measuring 1 cm which may also represent small fluid collection versus airspace disease, recommend short-term follow-up to document stability versus resolution and exclude underlying lung nodule. Electronically Signed: Chevy Murphy DO at 15:53 EDT , Chest X-Ray 05/13/22 22:15 IMPRESSION: No acute findings in the chest. Electronically Signed: Pito James MD at 23:01 EDT , Physical Exam Const alert and oriented x3 General Appearance: cooperative Neck supple Resp normal respiratory effort Effort and Inspection: able to speak in complete sentences GI GI Narrative: abdomen is soft and benign, some incisional tenderness Lower aspect of incision is open, I believe that the fascia is intact purulent seepage at the site wound nurse will place drainage bag to site to protect skin left sided colostomy functioning right sided ostomy appears pink and healthy Assessment & Plan Assessment/Plan (1) Abdominopelvic abscess: PLAN: Continue IV antibiotics Skin protection per wound ostomy nurse awaiting transfer to [facility]
--- NOTE | 2022-05-14 10:18 | WOUNDNOTE ---
wound photo: abdomen
[2022-05-14] MEDS: Menthol/Lanolin/Calamine/Znox 113 GM Tube 1 APPLIC TOPICAL ×2 (10:22→21:19)
[2022-05-14] MEDS: Multivitamins,Therapeutic Tablet 1 TABLET PO (10:22)
[2022-05-14] MEDS: Metoprolol(XL)Succ 25 MG Tablet PO (10:23)
--- NOTE | 2022-05-14 10:23 | WOUNDNOTE ---
was asked to see patient for urostomy, colostomy, and draining wound to abdomen. patient states that his first surgery was in 2015 at [facility] for bladder cancer. patient states that during that surgery the bowel was cut so he also ended up with a colostomy. patient states he has had 5 surgeries since then. pt ended up with a fistula that was fixed approx 2 weeks ago. there is a large amount of caldwell/zhang malodorous drainage noted from the distal incision as well as a small amount of drainage from the central portion of the incision. there is no erythema along the incision. possible recurrent fistula. pt is awaiting bed at [facility]. there are numerous marcelina that have come loose and are just hanging onto the skin. 7 marcelina were removed at this time. the skin was cleansed with soap and water and pat dry. Due to the amount of drainage, an ostomy appliance was placed over the dehisced distal incision to collect the drainage. both the urostomy and colostomy appliances were also changed d/t drainage noted on the flange. peristomal skin is intact to both areas. pt tolerated appliance changes well. see wound photo. present in room as well.
[2022-05-14] MEDS: Ascorbic Acid 500 MG Tablet PO (10:24)
--- NOTE | 2022-05-14 14:15 | NURSING ---
talked with [facility] transfer aware no bed available at this time.
[2022-05-14] MEDS: Juven (unflavored) Packet 1 PACKET PO (15:06)
--- NOTE | 2022-05-14 15:17 | CHAPLAIN ---
Type of Pastoral Visit _x__ Initial Visit ___ Follow-up Visit ___ On-call Visit ___ General Patient Visit ___ Spiritual Assessment ___ Family Conference ___ Bereavement ___ Rapid Response ___ Code Blue ___ Other (describe below) Pastoral Care Referral From ___ Patient ___ Family _x__ Nurse ___ Physician ___ Wire Coiler ___ Insecticide Maker ___ Other (describe below) Sacrament/Intervention _x__ Active listening ___ Anointing ___ Sikhism ___ Bereavement ___ Communion _x__ Rafaela exploration ___ _x__ Life review _x__ Prayer ___ Reconciliation ___ Sacrament of Sick _x__ Supportive presence ___ Wedding ___ Other (describe below) Pastoral Comments RN requested supportive visit to this patient and spouse; pt has been facing disappointment in health outcomes and is awaiting transfer back to previous hospital; spouse gives most of the details; life review given over the tragedies and blessings of their lives; pt and spouse are yarsanism members and find support there; family lives out of state and so they have limited resources from relatives; pt and spouse open to spiritual care, prayer, and follow up as needed
--- NOTE | 2022-05-14 15:36 | PCM.PN.HOSP ---
Subjective Subjective Patient was seen and examined today, talked with his who was in the room at the time of my examination. Patient was admitted for a wound infection of his abdomen from recent surgery, we are awaiting transfer to [facility] when a bed is available. Objective Data Objective Data Vital Signs: Vital Signs Temp Pulse Resp BP Pulse Ox O2 Del Method 97.8 F 70 18 127/64 H 98 Room Air 05/14/22 09:06 05/14/22 10:23 05/14/22 09:06 05/14/22 09:06 05/14/22 09:06 05/14/22 09:06 Oxygen Delivery Method Room Air Weight: 76.5 kg Body Mass Index (BMI) 25.5 Intake & Output: Intake and Output for Last 24 Hours 05/12/22 05/13/22 05/14/22 23:59 23:59 23:59 Intake Total 1525 / 1525 1376.35 / 1376.35 Output Total 725 / 725 650 / 650 Balance 800 / 800 726.35 / 726.35 Medical Nutrition Assessment Dietitian: Malnutrition Criteria Met Start: 05/14/22 10:18 Freq: Status: Active Protocol: Document 05/14/22 10:18 SHYLA (Rec: 05/14/22 10:18 [facility] [id number]) Nutrition Malnutrition Evidence of Malnutrition Exists Yes Malnutrition (moderate): Acute Illness/Injury Evidenced By Weight Loss (Severe),Physical Changes (Moderate) Intake Problem Increased Nutrient Needs (specify) Etiology protein related to open surgical wound w/ dehiscence and drainage Signs/Symptoms as evidenced by midline surgical incision and alb 2.1 Status Active Problem Clinical Problem Acute Disease or Injury Related Malnutrition Etiology related to 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 Status Active Problem Recommendation Dietitian Recommendations/Changes Will continue transitional diet as ordered Will continue ensure enlive 4x /day w/ medpass Will order charis bid to help w / wound healing Will provide ensure pudding or magic cup w/ lunch and dinner for increased nutrition if consumed. Lab / Micro Data Result Diagrams: 05/14/22 06:00 05/14/22 06:00 Labs: Laboratory Results - last 24 hr 05/13/22 13:40: Phosphorus 1.8 L, Magnesium 1.9 05/13/22 18:25: Lactic Acid 1.1 05/14/22 06:00: WBC 8.9, RBC 3.09 L, Hgb 8.9 L, Hct 27.4 L, MCV 88.7, MCH 28.8, MCHC 32.5, RDW Std Deviation 48.2 H, RDW Coeff of Carie 14.9 H, Plt Count 214, MPV 10.5, Immature Gran % (Auto) 0.700, Neut % (Auto) 78.8 H, Lymph % (Auto) 14.2 L, Freeborn % (Auto) 5.3, Eos % (Auto) 0.8, Baso % (Auto) 0.2, Absolute Neuts (auto) 7.0, Absolute Lymphs (auto) 1.26, Nucleated RBC % 0 05/14/22 06:00: Sodium 139, Potassium 3.8, Chloride 111 H, Carbon Dioxide 21.0, Anion Gap 7, BUN 16, Creatinine 1.08, Estim Creat Clear Calc 58.06, Est GFR (MDRD) Af Amer 86, Est GFR (MDRD) Non-Af 71, BUN/Creatinine Ratio 14.8, Glucose 82, Calcium 8.3 L, Phosphorus 4.1, Magnesium 2.1 Micro: Microbiology 05/13/22 14:10 Urine, Clean Catch Urine Culture - Preliminary GNR Poss Pseudomonas sp 05/13/22 14:20 Wound Drainage - Abdominal Gram Stain - Final 05/13/22 14:20 Wound Drainage - Abdominal Wound Culture - Preliminary Gram negative ambrose Gram positive ambrose 05/13/22 14:15 Nasal Secretion SARS-CoV-2 Antigen (Rapid) - Final Radiography Diagnostic Testing: Radiology Impression Abdomen/Pelvis CT 05/13/22 13:53 IMPRESSION: 1. Anterior midline abdominal surgery with sutures in place with the lower segment demonstrating a likely nonenteric small air-fluid level measuring 2.0 x 3.1 x 2.7 cm concerning for early phlegmon abutting the anterior abdominal lower wall near the lower incision site with other considerations including iatrogenic air and mesenteric air not completely excluded. This region demonstrates scattered layering mild fluid along the anterior abdominal wall. Clinically correlate for infectious setting along the anterior inferior incision site. 2. Within the lower posterior pelvis is a irregular fluid collection with scattered areas of air concerning for additional early abscess/phlegmon measuring 4.0 x 2.7 x 6.0 cm with fluid extending to the lower perianal region. 3. Patulous appearance of the cecum which is similar compared to the prior exam with no evidence of underlying obstruction. 4. Left lower lobe lung phlebolith adjacent apparent nodule measuring 1 cm which may also represent small fluid collection versus airspace disease, recommend short-term follow-up to document stability versus resolution and exclude underlying lung nodule. Electronically Signed: Chevy Murphy DO at 15:53 EDT , Chest X-Ray 05/13/22 22:15 IMPRESSION: No acute findings in the chest. Electronically Signed: Pito James MD at 23:01 EDT , Physical Exam Const alert, oriented x3 and no apparent distress Constitutional Narrative: Patient appears older than his stated age and frail General Appearance: cooperative, well kempt and well developed Orientation / Consciousness: awake, oriented to person, oriented to place and oriented to time HEENT normocephalic, head/scalp atraumatic and moist oral mucous membranes Eyes PERRL, EOMs intact bilaterally and conjunctivae normal Neck supple, no JVD and thyroid normal General: trachea midline Resp normal respiratory effort, no retractions, no use of accessory muscles and clear to auscultation bilaterally Auscultation: Negative for rales, rhonchi or wheezes Cardio regular rate, regular rhythm, S1 normal heart sound, S2 normal heart sound, no murmurs, no rub and no gallops GI GI Narrative: There is the presence of a colostomy bag in the left lateral abdominal quadrant, there is noted to be present a urostomy device over the right lateral abdominal quadrant, midline incision is noted between the 2 ostomy sites extending for several centimeters vertically in the mid abdomen, the lower portion of this incision is reddened and edematous. Extremity no clubbing, cyanosis or edema Skin no rashes or lesions noted General Skin Exam: no breakdown Neuro oriented x3, CN's II-XII intact bilaterally, moves all extremities, no focal motor deficits and no sensory deficits noted Sensorium / Orientation: awake and alert Speech: speech normal Psych affect normal Assessment & Plan Assessment/Plan (1) Wound infection after surgery: PLAN: Plan 1. Postop wound infection with 2 intra-abdominal abscesses present, wound dehiscence is also present-continue Zosyn IV for now, patient will need to be transferred for further care to the [facility] when a bed is available. #2 acute kidney injury on a backdrop of chronic kidney disease stage IIIa-creatinine is improved today, continue IV fluids for now #3 hypokalemia-corrected at this time with administration of supplemental potassium #4 hypophosphatemia-corrected at this time #5 cerebrovascular disease- patient is on warfarin-patient's INR on admission was 2.6, we do not have a confirmation on the patient's warfarin dosage, this will need to be confirmed today. #6 essential hypertension-patient is on metoprolol, the patient's lisinopril was held due to his increased creatinine, I will resume lisinopril at 20 mg daily Charges/Coding Visit Charges Inpatient E&M: 64457 Subs Hosp L2
[2022-05-14] MEDS: Morphine 2 MG/ML Syringe IV (20:11)
[2022-05-14] MEDS: Atorvastatin Calcium 20 MG Tablet PO (21:18)
[2022-05-15] VITALS (10 sets, daily range): BP systolic 130–160; BP diastolic 51–73; PULSE 61–78; RESP 16–18; TEMP 36.6–36.8; O2SAT 97–98
[2022-05-15] MEDS: Juven (unflavored) Packet 1 PACKET PO (07:55)
[2022-05-15] MEDS: Multivitamins,Therapeutic Tablet 1 TABLET PO (07:55)
--- NOTE | 2022-05-15 08:49 | NURSING ---
[facility] called at this time, still no bed available for transfer. [facility] aware that patient is still needing to be transferred.
--- NOTE | 2022-05-15 09:11 | WOUNDNOTE ---
Pt still awaiting bed at [facility]. Denies fever or chills through the night. still having a moderate amount of caldwell malodorous drainage from the distal abdominal incision. changed the ostomy appliance over the opening d/t some loosening of the appliance edges. pt tolerated well. the colostomy and urostomy appliances remain intact. hooked the urostomy appliance up to the drainage bag. present at bedside.
[2022-05-15] MEDS: Metoprolol(XL)Succ 25 MG Tablet PO (10:56)
[2022-05-15] MEDS: Ascorbic Acid 500 MG Tablet PO (10:57)
[2022-05-15] MEDS: Lisinopril 20 MG Tablet PO (10:57)
[2022-05-15] MEDS: Menthol/Lanolin/Calamine/Znox 113 GM Tube 1 APPLIC TOPICAL ×2 (10:58→21:40)
[2022-05-15 11:32] LABS: Absolute Lymphocyte Count 1.22 X10^3/uL (0.83-4.51); Absolute Neutrophil Count 3.5 X10^3/uL (2.0-7.7); Basophil# 0.02 X10^3/uL; Basophil% 0.4 % (0-1); Eosinophil# 0.11 X10^3/uL; Eosinophils% 2.1 % (0-5); Hematocrit 32.6 % (40-54); Hemoglobin 10.7 g/dL (13.0-16.5); Lymphocyte # 1.22 X10^3/ul (0.83-4.51); Lymphocyte % 23.1 % (19-41); Mean Corp Hgb Conc 32.8 g/dL (32-36); Mean Corpuscular Hgb 28.8 pg (27.0-32.0); Mean Corpuscular Volume 87.9 fL (80-94); Mean Platelet Vol. 9.9 fl (6.2-12.0); Monocyte# 0.41 X10^3/uL; Monocyte% 7.8 % (0-10); NRBC Flagged by Analyzer 0 % (0-5); Neutrophil % 66.2 % (47-70); POSITIVE MORPHOLOGY YES; Platelet Count 220 K/mm3 (150-450); RBC Distribution Width CV 14.7 % (11.6-14.6); RBC Distribution Width SD 47.5 fl (35.1-43.9); Red Blood Count 3.71 M/mm3 (4.6-6.2); White Blood Count 5.3 K/mm3 (4.4-11.0)
[2022-05-15 11:33] LABS: Differential Indicated SCAN CRITERIA MET
[2022-05-15 12:16] LABS: Reactive Lymphocyte RARE
[2022-05-15] MEDS: oxyCODONE 5 MG Tablet PO ×2 (13:40→20:12)
--- NOTE | 2022-05-15 15:00 | CASEMGMT ---
LOREN RODRIGUEZ Assessment: Face to Face with pt for initial transition planning/care coordination assessment. RN JENNIFER introduced self and role at [facility], pt voices understanding and consents to assessment. Pt is A/O x4 and answers all questions appropriately at this time. present at bedside. Both patient and state discouragement with not being transferred to [facility] yet. Care providers, pharmacy, and demographics verified/updated. Admitting Dx: post op infection PCP:Nathan Specialists:Harpreet, colorectal surgeon; farhana [place] Preferred Pharmacy: [facility] Insurance: [facility], [place] Prescription Benefit: yes LW/HPOA: AD on chart from [place]. Pt states she will look at home to see if they have [employer] documents. Aware SW can assist to be redone if not. LNOK: Agnes Patel, Living Arrangements: Pt lives with in a single story house with a couple of steps to enter. Pt reports he was I in ADL's prior to hospitalization and denies concerns at home. Transportation: Pt drives self and denies concerns with transportation. Pt states he just was released to drive as long as he was not on pain meds post surgery. DME/HHC/SNF: Pt has a urostomy and colostomy and receives supplies through [facility]. Pt also has a cane and walker at home but does not use. Pt has grab bars in the bathroom. Pt has had HHC through [facility] or [facility], he could not remember which. Pt denies SNF stays. Pt states no further concerns/needs. CM to follow. Advised pt to ask CM if any further question/concerns/needs arise, voices understanding. Pt Goal: TRF to [facility] Plan: TRF to [facility]
--- NOTE | 2022-05-15 16:45 | PN.HOSP_ITS ---
Subjective Subjective Patient was seen and examined today, his is in the room during the time my examination. Patient has been afebrile since yesterday, his white blood cell count remains normal. I spoke briefly with general surgery today about his care. Currently there is not a bed confirmed for the patient at [facility]. Objective Data Objective Data Vital Signs: Vital Signs Temp Pulse Resp BP Pulse Ox O2 Del Method 98.2 F 78 18 160/68 H 98 Room Air 05/15/22 13:43 05/15/22 14:00 05/15/22 13:43 05/15/22 13:43 05/15/22 13:43 05/15/22 13:43 Oxygen Delivery Method Room Air Weight: 78.9 kg Body Mass Index (BMI) 25.5 Intake & Output: Intake and Output for Last 24 Hours 05/13/22 05/14/22 05/15/22 23:59 23:59 23:59 Intake Total 1525 / 1525 3370.35 / 3570.35 1050 / 1050 Output Total 725 / 725 1000 / 1460 1660 / 1660 Balance 800 / 800 2370.35 / 2110.35 -610 / -610 Medical Nutrition Assessment Dietitian: Malnutrition Criteria Met Start: 05/14/22 10:18 Freq: Status: Active Protocol: Document 05/14/22 10:18 SHYLA (Rec: 05/14/22 10:18 SHYLA [id number]) Nutrition Malnutrition Evidence of Malnutrition Exists Yes Malnutrition (moderate): Acute Illness/Injury Evidenced By Weight Loss (Severe),Physical Changes (Moderate) Intake Problem Increased Nutrient Needs (specify) Etiology protein related to open surgical wound w/ dehiscence and drainage Signs/Symptoms as evidenced by midline surgical incision and alb 2.1 Status Active Problem Clinical Problem Acute Disease or Injury Related Malnutrition Etiology related to 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 Status Active Problem Recommendation Dietitian Recommendations/Changes Will continue transitional diet as ordered Will continue ensure enlive 4x /day w/ medpass Will order charis bid to help w / wound healing Will provide ensure pudding or magic cup w/ lunch and dinner for increased nutrition if consumed. Lab / Micro Data Result Diagrams: 05/15/22 11:20 05/14/22 06:00 Labs: Laboratory Results - last 24 hr 05/15/22 11:20: WBC 5.3, RBC 3.71 L, Hgb 10.7 L, Hct 32.6 L, MCV 87.9, MCH 28.8, MCHC 32.8, RDW Std Deviation 47.5 H, RDW Coeff of Carie 14.7 H, Plt Count 220, MPV 9.9, Immature Gran % (Auto) 0.400, Neut % (Auto) 66.2, Lymph % (Auto) 23.1, Mccracken % (Auto) 7.8, Eos % (Auto) 2.1, Baso % (Auto) 0.4, Absolute Neuts (auto) 3.5, Absolute Lymphs (auto) 1.22, Nucleated RBC % 0, Reactive Lymphocytes RARE Micro: Microbiology 05/13/22 14:10 Urine, Clean Catch Urine Culture - Final Escherichia coli 05/13/22 14:20 Wound Drainage - Abdominal Gram Stain - Final 05/13/22 14:20 Wound Drainage - Abdominal Wound Culture - Preliminary Escherichia coli Proteus sp. 05/13/22 14:08 Blood Culture (Wb) - Anticubital Right Blood Culture - Preliminary No growth in 48 hours. 05/13/22 14:01 Blood Culture (Wb) - Anticubital Left Blood Culture - Preliminary No growth in 48 hours. 05/13/22 14:15 Nasal Secretion SARS-CoV-2 Antigen (Rapid) - Final Physical Exam Narrative alert, oriented x3 and no apparent distress Constitutional Narrative: Patient appears older than his stated age and frail General Appearance: cooperative, well kempt and well developed Orientation / Consciousness: awake, oriented to person, oriented to place and oriented to time HEENT normocephalic, head/scalp atraumatic and moist oral mucous membranes Eyes PERRL, EOMs intact bilaterally and conjunctivae normal Neck supple, no JVD and thyroid normal General: trachea midline Resp normal respiratory effort, no retractions, no use of accessory muscles and clear to auscultation bilaterally Auscultation: Negative for rales, rhonchi or wheezes Cardio regular rate, regular rhythm, S1 normal heart sound, S2 normal heart sound, no murmurs, no rub and no gallops GI GI Narrative: There is the presence of a colostomy bag in the left lateral abdominal quadrant, there is noted to be present a urostomy device over the right lateral abdominal quadrant, midline incision is noted between the 2 ostomy sites extending for several centimeters vertically in the mid abdomen, the lower portion of this incision is reddened and edematous. Extremity no clubbing, cyanosis or edema Skin no rashes or lesions noted General Skin Exam: no breakdown Neuro oriented x3, CN's II-XII intact bilaterally, moves all extremities, no focal motor deficits and no sensory deficits noted Sensorium / Orientation: awake and alert Speech: speech normal Psych affect normal Const alert, oriented x3 and no apparent distress Constitutional Narrative: Patient appears older than his stated age and frail General Appearance: cooperative, well kempt and well developed Orientation / Consciousness: awake, oriented to person, oriented to place and oriented to time HEENT normocephalic, head/scalp atraumatic and moist oral mucous membranes Eyes PERRL, EOMs intact bilaterally and conjunctivae normal Neck supple, no JVD and thyroid normal General: trachea midline Resp normal respiratory effort, no retractions, no use of accessory muscles and clear to auscultation bilaterally Auscultation: Negative for rales, rhonchi or wheezes Cardio regular rate, regular rhythm, S1 normal heart sound, S2 normal heart sound, no murmurs, no rub and no gallops GI GI Narrative: There is the presence of a colostomy bag in the left lateral abdominal quadrant, there is noted to be present a urostomy device over the right lateral abdominal quadrant, midline incision is noted between the 2 ostomy sites extending for several centimeters vertically in the mid abdomen, the lower portion of this incision is reddened and edematous. Extremity no clubbing, cyanosis or edema Skin no rashes or lesions noted General Skin Exam: no breakdown Neuro oriented x3, CN's II-XII intact bilaterally, moves all extremities, no focal motor deficits and no sensory deficits noted Sensorium / Orientation: awake and alert Speech: speech normal Psych affect normal Assessment & Plan Assessment/Plan (1) Abdominopelvic abscess: (2) Wound infection after surgery: PLAN: Plan 1. Postop wound infection with 2 intra-abdominal abscesses present, wound dehiscence is also present-continue Zosyn IV for now, patient will need to be transferred for further care to the [facility] when a bed is available. #2 acute kidney injury on a backdrop of chronic kidney disease stage IIIa- creatinine is improved today, continue IV fluids for now #3 hypokalemia-corrected at this time with administration of supplemental potassium #4 hypophosphatemia-corrected at this time #5 cerebrovascular disease- patient is on warfarin-patient's INR on admission was 2.6, we do not have a confirmation on the patient's warfarin dosage, this will need to be confirmed today. #6 essential hypertension-patient is on metoprolol, the patient's lisinopril was held due to his increased creatinine, I will resume lisinopril at 20 mg daily #7 severe protein and caloric malnutrition-as evidenced by 6.5% weight loss in less than 3 weeks and fat/muscle loss in face and upper body-continue transitional diet, continue Ensure Enlive 4 times a day with med [employer], Charis twice daily was ordered to help with wound healing, Ensure pudding or Magic cup with lunch and dinner was also provided. Charges/Coding Visit Charges Inpatient E&M: 93135 Subs Hosp L2
[2022-05-15] MEDS: Acetaminophen 325 MG Tablet 650 MG PO (20:12)
[2022-05-15] MEDS: 0.9% Saline Lock 10 ML Syringe IV ×2 (21:39→23:18)
[2022-05-15] MEDS: Atorvastatin Calcium 20 MG Tablet PO (21:40)
[2022-05-15] MEDS: Morphine 2 MG/ML Syringe IV (23:17)
[2022-05-16 02:00] VITALS: BP 141/67; PULSE 63; RESP 18; TEMP 36.3; O2SAT 97
[2022-05-16 07:12] VITALS: O2SAT 97
--- NOTE | 2022-05-16 07:57 | NURSING ---
[facility] transfer line called, still no bed available for transfer at this time.
[2022-05-16 08:10] VITALS: BP 168/78; PULSE 64; RESP 18; TEMP 36.5; O2SAT 97
[2022-05-16 08:16] VITALS: PULSE 64
[2022-05-16] MEDS: Metoprolol(XL)Succ 25 MG Tablet PO (08:16)
[2022-05-16] MEDS: Multivitamins,Therapeutic Tablet 1 TABLET PO (08:16)
[2022-05-16] MEDS: Menthol/Lanolin/Calamine/Znox 113 GM Tube 1 APPLIC TOPICAL ×2 (08:16→20:08)
[2022-05-16] MEDS: Lisinopril 20 MG Tablet PO (08:17)
[2022-05-16] MEDS: Ascorbic Acid 500 MG Tablet PO (08:17)
--- NOTE | 2022-05-16 11:48 | CHAPLAIN ---
Type of Pastoral Visit ___ Initial Visit _x__ Follow-up Visit ___ On-call Visit ___ General Patient Visit ___ Spiritual Assessment ___ Family Conference ___ Bereavement ___ Rapid Response ___ Code Blue ___ Other (describe below) Pastoral Care Referral From ___ Patient _x__ Family ___ Nurse ___ Physician ___ Compliance Monitor ___ Inspecting And Testing Lead Hand ___ Other (describe below) Sacrament/Intervention _x__ Active listening ___ Anointing ___ Shinto ___ Bereavement ___ Communion ___ Rafaela exploration ___ ___ Life review _x__ Prayer ___ Reconciliation ___ Sacrament of Sick _x__ Supportive presence ___ Wedding ___ Other (describe below) Pastoral Comments follow up to patient who is still waiting for transfer to a bed at [facility]; spouse is with patient; pt is also disappointed about what he can eat and is bored being in his room; talked about what can be helpful to pass his time and how to keep 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
--- NOTE | 2022-05-16 13:48 | CASEMGMT ---
Social Work SW in to pt room to provide support. Introduced self and role at the hospital. Pt advocating for him and reports a nurse needs to come assess pt as his back is broke out and itchy. SW reassured pt and his that a nurse would be updated. SW offered support to pt and processed frustration with pt and his regarding their waiting status for transfer to [facility]. SW also discussed AD with them. Pt's reported she forgot to look for the papers at home but would do so tonight to confirm if they have [place] documents or not. SW updated pt's nurse that he needs to be seen and she voiced understanding. SUSY Kirkpatrick
[2022-05-16 13:59] VITALS: BP 151/60; PULSE 68; RESP 16; TEMP 36.7; O2SAT 96
--- NOTE | 2022-05-16 14:19 | NS ---
Called by RN to clarify diet order. Currently on transitional diet w/ soft and bite size texture modifications. No issues chewing/swallowing. Per Dr. Sandhu, should be on a GI soft diet, ok for regular textures, thin liquids. Diet adjusted per verbal order. Nyla Jo MS, RDN, LD
--- NOTE | 2022-05-16 14:30 | WOUNDNOTE ---
Pt still awaiting bed at [facility]. the urostomy and colostomy appliances are intact. the appliance over the distal abdominal incision is still intact. patient still with moderate caldwell/zhang drainage noted. present at bedside. voices frustration with waiting for bed at [facility]. Dr Che aware.
--- NOTE | 2022-05-16 14:44 | PCM.PN.HOSP ---
Subjective Subjective Patient was seen and examined today, he remained stable medically at this time, He is afebrile.At length with the patient's as well as the patient today, I called [facility] to see if we can expedite transfer there for further care, Transfer individual told me that they would reevaluate the patient's status. Objective Data Objective Data Vital Signs: Vital Signs Temp Pulse Resp BP Pulse Ox O2 Del Method 98.0 F 68 16 151/60 H 96 Room Air 05/16/22 13:59 05/16/22 13:59 05/16/22 13:59 05/16/22 13:59 05/16/22 13:59 05/16/22 13:59 Oxygen Delivery Method Room Air Weight: 77.4 kg Body Mass Index (BMI) 25.5 Intake & Output: Intake and Output for Last 24 Hours 05/14/22 05/15/22 05/16/22 23:59 23:59 23:59 Intake Total 3370.35 / 3570.35 1100 / 1250 305.25 / 305.25 Output Total 1000 / 1460 1660 / 2460 1400 / 1400 Balance 2370.35 / 2110.35 -560 / -1210 -1094.75 / -1094.75 Medical Nutrition Assessment Dietitian: Malnutrition Criteria Met Start: 05/14/22 10:18 Freq: Status: Active Protocol: Document 05/14/22 10:18 SHYLA (Rec: 05/14/22 10:18 [id number]) Nutrition Malnutrition Evidence of Malnutrition Exists Yes Malnutrition (moderate): Acute Illness/Injury Evidenced By Weight Loss (Severe),Physical Changes (Moderate) Intake Problem Increased Nutrient Needs (specify) Etiology protein related to open surgical wound w/ dehiscence and drainage Signs/Symptoms as evidenced by midline surgical incision and alb 2.1 Status Active Problem Clinical Problem Acute Disease or Injury Related Malnutrition Etiology related to 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 Status Active Problem Recommendation Dietitian Recommendations/Changes Will continue transitional diet as ordered Will continue ensure enlive 4x /day w/ medpass Will order salvador bid to help w / wound healing Will provide ensure pudding or magic cup w/ lunch and dinner for increased nutrition if consumed. Lab / Micro Data Result Diagrams: 05/15/22 11:20 05/14/22 06:00 Micro: Microbiology 05/13/22 14:20 Wound Drainage - Abdominal Gram Stain - Final 05/13/22 14:20 Wound Drainage - Abdominal Wound Culture - Preliminary Escherichia coli Proteus mirabilis Staphylococcus species Gram positive ambrose 05/13/22 14:10 Urine, Clean Catch Urine Culture - Final Escherichia coli 05/13/22 14:08 Blood Culture (Wb) - Anticubital Right Blood Culture - Preliminary No growth in 48 hours. 05/13/22 14:01 Blood Culture (Wb) - Anticubital Left Blood Culture - Preliminary No growth in 48 hours. 05/13/22 14:15 Nasal Secretion SARS-CoV-2 Antigen (Rapid) - Final Physical Exam Narrative alert, oriented x3 and no apparent distress Constitutional Narrative: Patient appears older than his stated age and frail General Appearance: cooperative, well kempt and well developed Orientation / Consciousness: awake, oriented to person, oriented to place and oriented to time HEENT normocephalic, head/scalp atraumatic and moist oral mucous membranes Eyes PERRL, EOMs intact bilaterally and conjunctivae normal Neck supple, no JVD and thyroid normal General: trachea midline Resp normal respiratory effort, no retractions, no use of accessory muscles and clear to auscultation bilaterally Auscultation: Negative for rales, rhonchi or wheezes Cardio regular rate, regular rhythm, S1 normal heart sound, S2 normal heart sound, no murmurs, no rub and no gallops GI GI Narrative: There is the presence of a colostomy bag in the left lateral abdominal quadrant, there is noted to be present a urostomy device over the right lateral abdominal quadrant, midline incision is noted between the 2 ostomy sites extending for several centimeters vertically in the mid abdomen, the lower portion of this incision is reddened and edematous. Extremity no clubbing, cyanosis or edema Skin no rashes or lesions noted General Skin Exam: no breakdown Neuro oriented x3, CN's II-XII intact bilaterally, moves all extremities, no focal motor deficits and no sensory deficits noted Sensorium / Orientation: awake and alert Speech: speech normal Psych affect normal Const alert, oriented x3 and no apparent distress Constitutional Narrative: Patient appears older than his stated age and frail General Appearance: cooperative, well kempt and well developed Orientation / Consciousness: awake, oriented to person, oriented to place and oriented to time HEENT normocephalic, head/scalp atraumatic and moist oral mucous membranes Eyes PERRL, EOMs intact bilaterally and conjunctivae normal Neck supple, no JVD and thyroid normal General: trachea midline Resp normal respiratory effort, no retractions, no use of accessory muscles and clear to auscultation bilaterally Auscultation: Negative for rales, rhonchi or wheezes Cardio regular rate, regular rhythm, S1 normal heart sound, S2 normal heart sound, no murmurs, no rub and no gallops GI GI Narrative: There is the presence of a colostomy bag in the left lateral abdominal quadrant, there is noted to be present a urostomy device over the right lateral abdominal quadrant, midline incision is noted between the 2 ostomy sites extending for several centimeters vertically in the mid abdomen, the lower portion of this incision is reddened and edematous. Extremity no clubbing, cyanosis or edema Skin no rashes or lesions noted General Skin Exam: no breakdown Neuro oriented x3, CN's II-XII intact bilaterally, moves all extremities, no focal motor deficits and no sensory deficits noted Sensorium / Orientation: awake and alert Speech: speech normal Psych affect normal Assessment & Plan Assessment/Plan (1) Wound infection after surgery: (2) Abdominopelvic abscess: PLAN: Plan 1. Postop wound infection with 2 intra-abdominal abscesses present, wound dehiscence is also present-continue Zosyn IV for now, patient will need to be transferred for further care to the [facility] when a bed is available. #2 acute kidney injury on a backdrop of chronic kidney disease stage IIIa-creatinine is improved today, continue IV fluids for now #3 hypokalemia-corrected at this time with administration of supplemental potassium #4 hypophosphatemia-corrected at this time #5 cerebrovascular disease- patient is on warfarin-patient's INR on admission was 2.6, we do not have a confirmation on the patient's warfarin dosage, this will need to be confirmed today. #6 essential hypertension-patient is on metoprolol, the patient's lisinopril was held due to his increased creatinine, I will resume lisinopril at 20 mg daily #7 severe protein and caloric malnutrition-as evidenced by 6.5% weight loss in less than 3 weeks and fat/muscle loss in face and upper body-continue transitional diet, continue Ensure Enlive 4 times a day with med Pass, Salvador twice daily was ordered to help with wound healing, Ensure pudding or Magic cup with lunch and dinner was also provided. Patient's overall medical status appears stable at this time. No medical changes at this time room. Charges/Coding Visit Charges Inpatient E&M: 97255 Subs Hosp L2
--- NOTE | 2022-05-16 15:56 | NURSING ---
Called for an update on status of bed at [facility]. Seng from the transfer line states patient is on the high priority list. He us unable to give a timeframe as to when a bed will open up. Will update patient and family.
[2022-05-16 20:00] VITALS: BP 143/72; PULSE 65; RESP 16; TEMP 36.6; O2SAT 97
[2022-05-16] MEDS: oxyCODONE 5 MG Tablet PO (20:07)
[2022-05-16] MEDS: Atorvastatin Calcium 20 MG Tablet PO (20:08)
[2022-05-16] MEDS: Acetaminophen 325 MG Tablet 650 MG PO (20:08)
[2022-05-17] MEDS: Acetaminophen 325 MG Tablet 650 MG PO (02:20)
[2022-05-17] MEDS: oxyCODONE 5 MG Tablet PO ×3 (02:20→23:18)
[2022-05-17 02:23] VITALS: BP 142/81; PULSE 58; RESP 16; TEMP 36.6; O2SAT 98
[2022-05-17 07:58] VITALS: BP 164/67; PULSE 58; RESP 18; TEMP 36.4; O2SAT 94
--- NOTE | 2022-05-17 08:16 | WOUNDNOTE ---
There had been some leakage from the urostomy appliance through the night. the appliance was changed by night warehouse manager. a high volume colostomy appliance had been applied so the connector does not fit well into the night drainage bag. this is most likely the cause of the leaking. change patient to a 1 piece convex urostomy appliance with the Amador connector piece. the appliance over the dehisced area of the distal incision is currently intact. will monitor for leakage throughout the day. the colostomy appliance remains intact as well. patient denies further needs. patient is still awaiting transfer to [facility].
--- NOTE | 2022-05-17 08:37 | PCA ---
US notified [facility] transfer line to acquire bed assignment, no bed assignment yet.
[2022-05-17 09:39] VITALS: PULSE 65
[2022-05-17] MEDS: Lisinopril 20 MG Tablet PO (09:39)
[2022-05-17] MEDS: Metoprolol(XL)Succ 25 MG Tablet PO (09:39)
[2022-05-17] MEDS: Multivitamins,Therapeutic Tablet 1 TABLET PO (09:40)
[2022-05-17] MEDS: Menthol/Lanolin/Calamine/Znox 113 GM Tube 1 APPLIC TOPICAL ×2 (09:40→21:10)
[2022-05-17] MEDS: Ascorbic Acid 500 MG Tablet PO (09:40)
[2022-05-17 14:31] VITALS: BP 176/77; PULSE 64; RESP 18; TEMP 36.6; O2SAT 97
--- NOTE | 2022-05-17 15:53 | PCM.PN.HOSP ---
Subjective Subjective In and examined today, I talked with his who was in the room at the time of my examination, patient has been afebrile and he remains medically stable at this time. I talked with [facility] today and they said that he would get the next available surgical bed-this discussion took place about 11 AM this morning. Objective Data Objective Data Vital Signs: Vital Signs Temp Pulse Resp BP Pulse Ox O2 Del Method 97.9 F 64 18 176/77 H 97 Room Air 05/17/22 14:31 05/17/22 14:31 05/17/22 14:31 05/17/22 14:31 05/17/22 14:31 05/17/22 14:31 Oxygen Delivery Method Room Air Weight: 78.6 kg Body Mass Index (BMI) 25.5 Intake & Output: Intake and Output for Last 24 Hours 05/15/22 05/16/22 05/17/22 23:59 23:59 23:59 Intake Total 1100 / 1250 789.00 / 789.00 637.75 / 637.75 Output Total 1660 / 2460 2445 / 2445 775 / 775 Balance -560 / -1210 -1656.00 / -1656.00 -137.25 / -137.25 Medical Nutrition Assessment Dietitian: Malnutrition Criteria Met Start: 05/14/22 10:18 Freq: Status: Active Protocol: Document 05/17/22 10:39 (Rec: 05/17/22 10:39 [id number]) Nutrition Malnutrition Evidence of Malnutrition Exists Yes Malnutrition (moderate): Acute Illness/Injury Evidenced By Weight Loss (Severe),Physical Changes (Moderate) Intake Problem Increased Nutrient Needs (specify) Etiology protein related to open surgical wound w/ dehiscence and drainage Signs/Symptoms as evidenced by midline surgical incision and alb 2.1 Status Active Problem Clinical Problem Acute Disease or Injury Related Malnutrition Etiology (severe) related to 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 Status Active Problem Recommendation Dietitian Recommendations/Changes Will continue transitional diet as ordered Will continue ensure Enlive 4x /day and Salvador BID w/ medpass Will continue ensure pudding or magic cup w/ lunch and dinner for increased nutrition if consumed. Lab / Micro Data Result Diagrams: 05/15/22 11:20 05/14/22 06:00 Micro: Microbiology 05/13/22 14:20 Wound Drainage - Abdominal Gram Stain - Final 05/13/22 14:20 Wound Drainage - Abdominal Wound Culture - Final Escherichia coli Proteus mirabilis Staphylococcus epidermidis Corynebacterium amycolatum 05/13/22 14:10 Urine, Clean Catch Urine Culture - Final Escherichia coli 05/13/22 14:08 Blood Culture (Wb) - Anticubital Right Blood Culture - Preliminary No growth in 48 hours. 05/13/22 14:01 Blood Culture (Wb) - Anticubital Left Blood Culture - Preliminary No growth in 48 hours. 05/13/22 14:15 Nasal Secretion SARS-CoV-2 Antigen (Rapid) - Final Physical Exam Narrative alert, oriented x3 and no apparent distress Constitutional Narrative: Patient appears older than his stated age and frail General Appearance: cooperative, well kempt and well developed Orientation / Consciousness: awake, oriented to person, oriented to place and oriented to time HEENT normocephalic, head/scalp atraumatic and moist oral mucous membranes Eyes PERRL, EOMs intact bilaterally and conjunctivae normal Neck supple, no JVD and thyroid normal General: trachea midline Resp normal respiratory effort, no retractions, no use of accessory muscles and clear to auscultation bilaterally Auscultation: Negative for rales, rhonchi or wheezes Cardio regular rate, regular rhythm, S1 normal heart sound, S2 normal heart sound, no murmurs, no rub and no gallops GI GI Narrative: There is the presence of a colostomy bag in the left lateral abdominal quadrant, there is noted to be present a urostomy device over the right lateral abdominal quadrant, midline incision is noted between the 2 ostomy sites extending for several centimeters vertically in the mid abdomen, the lower portion of this incision is reddened and edematous. Extremity no clubbing, cyanosis or edema Skin no rashes or lesions noted General Skin Exam: no breakdown Neuro oriented x3, CN's II-XII intact bilaterally, moves all extremities, no focal motor deficits and no sensory deficits noted Sensorium / Orientation: awake and alert Speech: speech normal Psych affect normal Const alert, oriented x3 and no apparent distress Constitutional Narrative: Patient appears older than his stated age and frail General Appearance: cooperative, well kempt and well developed Orientation / Consciousness: awake, oriented to person, oriented to place and oriented to time HEENT normocephalic, head/scalp atraumatic and moist oral mucous membranes Eyes PERRL, EOMs intact bilaterally and conjunctivae normal Neck supple, no JVD and thyroid normal General: trachea midline Resp normal respiratory effort, no retractions, no use of accessory muscles and clear to auscultation bilaterally Auscultation: Negative for rales, rhonchi or wheezes Cardio regular rate, regular rhythm, S1 normal heart sound, S2 normal heart sound, no murmurs, no rub and no gallops GI GI Narrative: There is the presence of a colostomy bag in the left lateral abdominal quadrant, there is noted to be present a urostomy device over the right lateral abdominal quadrant, midline incision is noted between the 2 ostomy sites extending for several centimeters vertically in the mid abdomen, the lower portion of this incision is reddened and edematous. Extremity no clubbing, cyanosis or edema Skin no rashes or lesions noted General Skin Exam: no breakdown Neuro oriented x3, CN's II-XII intact bilaterally, moves all extremities, no focal motor deficits and no sensory deficits noted Sensorium / Orientation: awake and alert Speech: speech normal Psych affect normal Assessment & Plan Assessment/Plan (1) Wound infection after surgery: (2) Abdominopelvic abscess: PLAN: Plan 1. Postop wound infection with 2 intra-abdominal abscesses present, wound dehiscence is also present-continue Zosyn IV for now, patient will need to be transferred for further care to the [facility] when a bed is available. I was led to believe this would probably be today by my conversation with the [facility] this morning. I relayed this to the patient and his . #2 acute kidney injury on a backdrop of chronic kidney disease stage IIIa-monitor BMP as deemed necessary #3 hypokalemia-corrected at this time with administration of supplemental potassium #4 hypophosphatemia-corrected at this time #5 cerebrovascular disease-patient is currently on warfarin, I do not feel it is necessary to check his INR at this time. #6 essential hypertension-patient is on metoprolol and lisinopril #7 severe protein and caloric malnutrition-as evidenced by 6.5% weight loss in less than 3 weeks and fat/muscle loss in face and upper body-continue transitional diet, continue Ensure Enlive 4 times a day with med Pass, Salvador twice daily was ordered to help with wound healing, Ensure pudding or Magic cup with lunch and dinner was also provided. Patient's overall medical status appears stable at this time. No medical changes at this time. Charges/Coding Visit Charges Inpatient E&M: 61784 Subs Hosp L2
--- NOTE | 2022-05-17 17:09 | NURSING ---
talked with Darrin at [facility] transfer center, aware no bed available at this time, he was unable to disclose where pt was on the priority list.
[2022-05-17 20:17] VITALS: BP 160/69; PULSE 61; RESP 16; TEMP 36.4; O2SAT 97
[2022-05-17] MEDS: Atorvastatin Calcium 20 MG Tablet PO (21:10)
[2022-05-17] MEDS: MELATONIN 3 MG TABLET PO (23:18)
[2022-05-18 02:30] VITALS: BP 135/63; PULSE 64; RESP 16; TEMP 36.6; O2SAT 98
--- NOTE | 2022-05-18 03:20 | NURSING ---
Phone call received from [facility]. They have a bed for patient, H[address] bed [address] Dr notified and transport being arranged.
[2022-05-18 06:32] VITALS: BP 132/78; PULSE 64; RESP 16; TEMP 36.6; O2SAT 98
[2022-05-18] MEDS: 0.9% Saline Lock 10 ML Syringe IV (06:52)
--- NOTE | 2022-05-18 09:15 | PCM.DC.SUM ---
Providers Date of Admission: 05/13/22 Date of Discharge: 05/18/22 Primary Care Physician: Chana Evasn, Consultations 05/13/22 23:26 Consult: General Surgery Routine Consulting Provider: Betty Kirkland Reason for Consult: Post op complication with abscesses, purulent discharge EMERGENT Consult: No MD Notified: Yes Date Notified: 05/13/22 Time Notified: 22:13 Method of Notification: ED Physician Initiated 05/14/22 00:41 Consult: Onc/Wound/commercial drafter Routine Comment: Reason for Consult:: colostomy, urostomy, surgical wound dehiscence Reason For Visit: POST OP INFECTION Diagnosis Discharge Diagnosis (1) Wound infection after surgery: Status: Acute Code(s): T81.49XA - Infection following a procedure, other surgical site, initial encounter (2) Abdominopelvic abscess: Status: Acute Code(s): K65.1 - Peritoneal abscess Plan 1. Postop wound infection with 2 intra-abdominal abscesses present, wound dehiscence is also present-continue Zosyn IV for now, patient will need to be transferred for further care to the [facility] when a bed is available. I was led to believe this would probably be today by my conversation with the [facility] this morning. I relayed this to the patient and his . #2 acute kidney injury on a backdrop of chronic kidney disease stage IIIa-monitor BMP as deemed necessary #3 hypokalemia-corrected at this time with administration of supplemental potassium #4 hypophosphatemia-corrected at this time #5 cerebrovascular disease-patient is currently on warfarin, I do not feel it is necessary to check his INR at this time. #6 essential hypertension-patient is on metoprolol and lisinopril #7 severe protein and caloric malnutrition-as evidenced by 6.5% weight loss in less than 3 weeks and fat/muscle loss in face and upper body-continue transitional diet, continue Ensure Enlive 4 times a day with med Pass, Salvador twice daily was ordered to help with wound healing, Ensure pudding or Magic cup with lunch and dinner was also provided. Patient's overall medical status appears stable at this time. No medical changes at this time. Medications at Discharge Home Medications multivitamin 1 tab PO DAILY GENERAL HEALTH 03/17/19 atorvastatin 20 mg tablet 20 mg PO DAILY HIGH CHOLESTROL #90 tabs 04/29/19 ascorbic acid (vitamin C) 1,000 mg tablet 500 mg PO DAILY 08/03/19 metoprolol succinate 25 mg tablet,extended release 24 hr 25 mg PO DAILY #30 tabs 02/20/21 lisinopril 20 mg tablet 20 mg PO DAILY blood pressure 05/13/22 warfarin 4 mg tablet 5 mg PO DAILY blood thinner 05/13/22 Hospital Course Operations None Procedures None Summary of Care Provided Minutes Spent on Discharge: 30 Hospital Course: This 76-year old white male was seen in the emergency room at [facility], he had undergone surgery at the 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 In the ER, patient was noted to have dehiscence of his midline abdominal wound with discharge from the area, general surgery was contacted and requested patient be transferred to [facility] where he had undergone surgery approximately week before. Unfortunately there were no beds available, patient was admitted to [place] [address] and was placed on IV antibiotics and seen by general surgery here, it was felt that he did not need emergent surgery here and we waited approximately 4 days for a bed to open up at the [facility] before the patient was discharged there on 05/18/2022. Patient was not seen and examined on that date as he was discharged early in the morning of that date. Patient was in stable condition at the time of discharge. Weight / BMI Weight Weight: 77.5 kg Body Mass Index (BMI) 25.5 ABG / Lab / Microbiology Data Result Diagrams: 05/15/22 11:20 05/14/22 06:00 Microbiology: Microbiology 05/13/22 14:20 Wound Drainage - Abdominal Gram Stain - Final 05/13/22 14:20 Wound Drainage - Abdominal Wound Culture - Final Escherichia coli Proteus mirabilis Staphylococcus epidermidis Corynebacterium amycolatum 05/13/22 14:10 Urine, Clean Catch Urine Culture - Final Escherichia coli 05/13/22 14:08 Blood Culture (Wb) - Anticubital Right Blood Culture - Preliminary No growth in 48 hours. 05/13/22 14:01 Blood Culture (Wb) - Anticubital Left Blood Culture - Preliminary No growth in 48 hours. 05/13/22 14:15 Nasal Secretion SARS-CoV-2 Antigen (Rapid) - Final Meaningful Use Info Meaningful Use Diagnoses (Choose all that apply): None applicable Discharge Plan Admission Admit Date/Time: 05/13/22 22:08 Attending Provider: Pio Sandhu Primary Care Provider: Chana Evans Consulting Providers: Betty Kirkland ; Rich Corrigan Discharge Orders/Prescriptions Prescriptions: No Action multivitamin tablet 1 tab PO DAILY ascorbic acid (vitamin C) 1,000 MG tablet 500 mg PO DAILY lisinopril 20 mg tablet 20 mg PO DAILY warfarin 4 mg tablet 5 mg PO DAILY Rx Instructions: take saturday and saturday atorvastatin 20 mg tablet 20 mg PO DAILY Qty: 90 3RF metoprolol succinate 25 mg tablet extended release 24 hr 25 mg PO DAILY Qty: 30 0RF Referrals / Follow Up: Nilay Allen MD [Med Staff - Waterproofer Helper] - Chana Evans DO [Primary Care Provider] - Disposition Disposition (needs filled in before D/C Order can be placed): [facility]
== END 2022-05-18 07:00 | disposition short-term general hospital (02) | DRG 862 ==
LOC: ED 22:15 → MS3 05-14 07:07
PROVIDERS: Admitting Provider Internal Medicine; Emergency Provider Student in an Organized Health Care Education/Training Program; PCP Family Medicine; Visit Provider Internal Medicine
DX: T81.49XA Infection following a procedure, other surgical site, initial encounter (principal); K65.1 Peritoneal abscess; E43 Unspecified severe protein-calorie malnutrition; E87.2 Acidosis; N17.9 Acute kidney failure, unspecified; E83.39 Other disorders of phosphorus metabolism; D64.9 Anemia, unspecified; S31.109A Unspecified open wound of abdominal wall, unspecified quadrant without penetration into peritoneal cavity, initial encounter; I48.0 Paroxysmal atrial fibrillation; N18.31 Chronic kidney disease, stage 3a; Z93.2 Ileostomy status; Z93.3 Colostomy status; E78.5 Hyperlipidemia, unspecified; E87.6 Hypokalemia; I12.9 Hypertensive chronic kidney disease with stage 1 through stage 4 chronic kidney disease, or unspecified chronic kidney disease; I25.10 Atherosclerotic heart disease of native coronary artery without angina pectoris; I67.9 Cerebrovascular disease, unspecified; Z87.891 Personal history of nicotine dependence; Z66 Do not resuscitate; Z51.5 Encounter for palliative care; Z79.01 Long term (current) use of anticoagulants; Z86.73 Personal history of transient ischemic attack (TIA), and cerebral infarction without residual deficits; Z85.51 Personal history of malignant neoplasm of bladder; Z68.25 Body mass index [BMI] 25.0-25.9, adult
CPT/HCPCS: 36415; 71045; 74177; 80048; 80053; 81001; 83605; 83690; 83735; 84100; 85025; 85610; 87040; 87070; 87075; 87077; 87086; 87088; 87186; 87205; 87811; 93005; 97802; 99285; J7030; J7050; Q9967; A4216

== ENCOUNTER → 2022-05-30 | Outpatient (CLI) | payer MEDICARE, OTHER, SELFPAY ==
--- NOTE | 2022-05-30 08:00 | PET_ITS ---
PROCEDURE: WHOLE BODY PET/CT SCAN, MID SKULL TO MID THIGH REASON FOR EXAM: Pulmonary nodule incidentally detected on abdomen/pelvis CT 05/13/2022. Previous history of urinary bladder carcinoma COMPARISON EXAMINATION: PET scan 09/12/2021, abdomen/pelvis CT 05/13/2022. TECHNIQUE: Following the intravenous administration of 12.98 mCi of F-18 FDG, multiplanar imaging acquisitions of the neck, chest, abdomen/pelvis to the mid thigh, obtained at 1 hour post radiopharmaceutical administration. Interpretation is with co-registeration of similar anatomic distribution of CT. Findings: Normal and physiologic distribution of radioisotope identified in the expected intensity of the hepatic and splenic parenchyma, urinary tract and gastrointestinal structures. There is gross anatomic distribution of the intracranial contents. Expected mild FDG activity in region of prior surgery (pelvis, abdominal wall). INDEX LESION SIZE SUV INTERPRETATION: 1. 10 x 10 mm subpleural nodule in the lateral left lung base (on recent abdomen/pelvis CT) is mild FDG activity (SUV 4.2). 2. Mildly enlarged precarinal (station 4) lymph node on image 96 of series 202 measures 7.9 x 9.9 mm with FDG activity (SUV 4.4). 3. AP window lymph node measuring 7.5 x 11.3 mm on image 94 of series 202 with mild FDG activity (SUV 3.3). CT portion of the exam: No additional pulmonary nodule. There is no demonstrated pleural abnormality. Stable heart and pericardium. There are calcifications of the coronary arteries. No obvious hilar adenopathy although mild FDG activity (SUV 3.5) in the left hilum noted. Normal unenhanced pulmonary arteries. There is atherosclerotic calcification of the aortic arch with tortuosity and elongation of the aortic arch and descending thoracic aorta. No solid hepatic masses. Normal gallbladder and extrahepatic biliary system. Normal spleen. Normal pancreas. Normal bilateral adrenal glands. Mildly complex/septated cyst of the right kidney is not substantially changed since prior PET scan of 21. No hydronephrosis. Normal visualized stomach. No dilated loops of small bowel. No colon wall thickening demonstrated. Bowel surgical anastomoses are identified. There is diffuse atherosclerotic calcification of the abdominal aorta, without a demonstrated aneurysm. Normal inferior vena cava. Urinary bladder appears to be surgically absent. Right lower quadrant ileostomy is present. The fluid collection in the lower dependent pelvis evident on prior abdomen/pelvis CT no longer seen although stranding the presacral pelvis persists. Operative changes of the anterior abdominal wall with left lower quadrant colostomy. Bilateral hip replacements causing moderate streak artifact. PET/PET/CT Tumor Base -Thigh Init IMPRESSION: 1. ABNORMAL EXAMINATION. 10 mm nodule in the lateral left lower lobe meets criteria for viable neoplasm. Mild mediastinal (Station 4, precarinal) adenopathy also meets criteria for viable neoplasm. Tissue sampling/biopsy recommended. 2. Left lower quadrant colostomy. Cystectomy. Right lower quadrant ileostomy. 3. Resolution of pelvic fluid collection seen on 05/13/2022 residual pelvic inflammation. 4. Chronic changes, as detailed above. Electronically Signed: Chicho Moore MD ([place]) at 15:36 EDT ,
== END | disposition home or self-care (01) ==
LOC: ONC 07:45
PROVIDERS: PCP Family Medicine; Referring Provider Internal Medicine Pulmonary Disease; Visit Provider Internal Medicine Pulmonary Disease
DX: R91.8 Other nonspecific abnormal finding of lung field (principal)
CPT/HCPCS: 78815; A9552

== ENCOUNTER 2022-08-17 07:46 | Outpatient (CLI) | payer MEDICARE, OTHER, SELFPAY ==
--- NOTE | 2022-08-16 | IMM_PTH ---
PATIENT: RADHA JOHNSON LOC: CT U#:[id number] AGE/SX: 77/M ROOM: RE08/17/[address]: Dr. Francisco Mesa MD : 1945 BED: DIS: 08/17/2022 SPEC #: [id number] RECD: 08/20/22 13:37 STATUS: BUDDY REQ #: [id number] BRIAN: 08/16/22 00:[address]: Francisco Mesa V DEPT: IMMUNOHISTOCHEMISTRY RECD BY: Alejandra Shah ENTERED: 08/20/22 13:39 SP TYPE: IMMUNO OTHR DR: Chana Evans DO Tissues: Left lower lobe of lung, NOS Procedures: RCC (add) NAPSIN A (add) CK20 (add) CK5-6 (add) CK7 (add) CK8 (add) HEP PAR (add) TTF1 (add) Pankeratin (initial) P40 (add) PSAP (add) PHYSICIAN & [address] [address] SPECIMEN INFORMATION: Tissue Source: Left lower lobe lung nodule Clinical Info: Left lower lobe lung nodule Specimen Number: [id number] CPT code: 10902, 80394 x10 METHODOLOGY: Deparaffinized sections of prefer/formalin-fixed tissue or PAP/DQ stained slides are incubated with monoclonal/polyclonal antibodies/oligonucleotide probes. Localization is made via biotin free immunoperoxidase method. Appropriate controls are performed and reacted as expected. Results on target cell population are indicated in the following table: RESULTS: ANTIBODY / CLONE RESULT AE1-3 (AE1/AE3/PCK26) positive CK7 (OV-TL12/30) positive CK8 (18hvsmT19) positive CK20 (KS20.8) negative TTF-1 (8G7G3/1) positive Napsin A (Rabbit Polyclonal) positive HepPar (OCh1E5) negative RCC (PN-15) negative PSAP (PASE/4LJ) negative CK5-6 (D5 & 1684) negative P40 (BC28) negative These tests were developed and their performance characteristics determined by [facility]. They may not have been cleared or approved by the U.S. Food and Drug Administration. The FDA has determined that such clearance or approval is not necessary. The above immunohistochemical/dualISH markers are ordered and reviewed by the Pathologist. INTERPRETATION: Left lower lobe lung nodule, CT-guided biopsy: Non-small cell carcinoma, favor adenocarcinoma, bronchioloalveolar type. SJ:satnam 08/21/2022
--- NOTE | 2022-08-16 | ASPIGT_PTH ---
PATIENT: RADHA JOHNSON LOC: CT U#:[id number] AGE/SX: 77/M ROOM: RE08/17/[address]: Dr. Francisco Mesa MD : 1945 BED: DIS: 08/17/2022 SPEC #: [id number] RECD: 08/17/22 10:10 STATUS: BUDDY CAROL #: [id number] BRIAN: 08/16/22 00:[address]: Francisco Mesa V DEPT: SURGICAL PATHOLOGY RECD BY: Douglas Jean ENTERED: 08/17/22 10:10 SP TYPE: ASP RAD OTHR DR: Chana Evans DO Tissues: Lung, NOS Procedures: FNA Specimen Adequacy Special Stain Group II Surgery Specimen Level IV Imprint (control) HEADER OPERATION: CT guided lung biopsy PRE-OP DIAGNOSIS: Left lower lobe lung nodule TISSUE SUBMITTED: Left lower lobe lung mass MICROSCOPIC DIAGNOSIS Left lower lobe lung mass, CT-guided core biopsy: Non-small cell carcinoma, favor adenocarcinoma, bronchioloalveolar type. See comment. COMMENT The specimen is evaluated at the time of CT by Dr. Shannon. Immediate Evaluation = Malignant cells present derived from non-small cell carcinoma. Immunohistochemistry ([id number]) supports the above diagnosis. Molecular studies on the tumor can be performed, if clinically indicated. Case has been reviewed in consultation with Dr. Blount who concurs with the above diagnosis. IDC:AM MICROSCOPIC DESCRIPTION Slides are reviewed. GROSS DESCRIPTION Received in fixative is one container labeled with the patient's name and designated left lower lobe lung nodule, CT-guided core biopsy. The specimen consists of multiple irregular fragments of caldwell soft tissue that in aggregate measure 1 x 0.1 x <0.1 cm. The specimen is totally submitted in one cassette. Two touch imprints are prepared at the time of core biopsy. / APTRIZIA:satnam 08/17/2022 TC:0 CPT: 05032, 47724
[2022-08-17] VITALS (11 sets, daily range): BP systolic 124–167; BP diastolic 60–88; PULSE 54–61; RESP 10–20; TEMP 36.6; O2SAT 95–100; BMI 25.8
[2022-08-17 07:59] LABS: Platelet Count 165 K/mm3 (150-450)
--- NOTE | 2022-08-17 07:59 | CT_ITS ---
PROCEDURE: CT GUIDED CORE NEEDLE BIOPSY OF A left lower lobe peripheral LUNG LESION INDICATION: Male, 77 years old. POSITIVE PET SCAN PHYSICIAN: Dr. LINDA Breaux CONSENT: Written informed consent was obtained having explained the risks, benefits and alternatives in detail with the patient who accepted the risks and agreed to proceed. Laboratory review and clinical assessment was performed. CONSCIOUS SEDATION PROTOCOL: The Drugs used were: 2 mg Versed, IV., and 50 mcg Fentanyl, IV. The sedation time was: 20 minutes. Conscious sedation was started at 8:53 AM and terminated at 9:13 AM. The conscious sedation protocol was independently monitored. RADIATION DOSAGE (If Supplied By Facility): CTDIvol = ( 18.99 ) mGy, DLP = ( 363.45 ) mGycm Individualized dose optimization techniques were used for this CT. TECHNIQUE: The patient was placed in the supine position. A noncontrast CT was performed to localize the lesion in the peripheral aspect of the left lower lobe . The skin surface was prepped and draped in a sterile fashion. 1% lidocaine was used for local anesthesia. Using CT guidance, a 20-gauge coaxial biopsy device was advanced to the periphery of the lesion. A total of 4 core specimens were obtained. The specimens were placed in a formalin solution. A post procedure CT demonstrated no adverse sequelae or pneumothorax. The patient tolerated the procedure well without adverse event. A negative biopsy does not exclude malignancy. Further imaging or clinical followup based on patient condition and degree of clinical suspicion for malignancy. Suggest rebiopsy, if biopsy results do not match with clinical scenario. CT/Biopsy/Inj or Needle Placement IMPRESSION: 1. CT directed core needle biopsy of the peripheral nodule in the left lower lobe using CT image guidance with image documentation as described. Pathology results are pending. 2. Conscious Sedation protocol utilized with independent monitoring. Electronically Signed: Alphonse Ling MD at 9:52 EST ,
[2022-08-17 08:09] LABS: Partial Thromboplast Time 26.8 Seconds (24.1-36.2)
[2022-08-17] MEDS: Midazolam 2 MG/2 ML Syringe IV ×2 (08:53→09:08)
[2022-08-17] MEDS: fentaNYL 100 MCG/2 ML Ampul IV ×2 (08:54→09:08)
[2022-08-17] MEDS: Lidocaine 2% (20 ml mdv) 20 ML Vial INFILT (09:02)
--- NOTE | 2022-08-17 09:22 | RAD_ITS ---
STUDY: X-RAY CHEST REASON FOR EXAM: Male, 77 years old. POST BIOPSY -- Immediately post lung biopsy TECHNIQUE: AP inspiration and expiration views. COMPARISON: Comparison is made with prior study dated 05/13/2022. FINDINGS: The patient is status post left lung biopsy. There is no evidence of pneumothorax on the immediate post left lung biopsy radiographs. RAD/Chest Insp/Exp 2 View IMPRESSION: No evidence of pneumothorax on the immediate post left lung biopsy radiograph.s Electronically Signed: Alphonse Ling MD at 9:53 EST ,
--- NOTE | 2022-08-17 11:20 | RAD_ITS ---
STUDY: X-RAY CHEST REASON FOR EXAM: Male, 77 years old. POST BIOPSY -- 2 hours post lung biopsy TECHNIQUE: AP inspiration and expiration views. COMPARISON: Comparison is made with prior study done earlier today. FINDINGS: No evidence of pneumothorax on the 2 hour delayed images. RAD/Chest Insp/Exp 2 View IMPRESSION: No evidence of pneumothorax. Electronically Signed: Alphonse Ling MD at 11:55 EST ,
== END 2022-08-17 23:59 | disposition home or self-care (01) ==
LOC: CT 07:47
PROVIDERS: PCP Family Medicine; Referring Provider Internal Medicine Pulmonary Disease; Visit Provider Internal Medicine Pulmonary Disease
DX: C34.32 Malignant neoplasm of lower lobe, left bronchus or lung (principal); E78.00 Pure hypercholesterolemia, unspecified; I10 Essential (primary) hypertension; Z79.01 Long term (current) use of anticoagulants; Z79.899 Other long term (current) drug therapy; Z87.891 Personal history of nicotine dependence
CPT/HCPCS: 32408; 36415; 71046; 77012; 85049; 85610; 85730; 88172; 88305; 88313; 88341; 88342; 99156; J7050; A4216; C2613

== ENCOUNTER → 2022-10-26 | Outpatient (CLI) | payer MEDICARE, OTHER, SELFPAY | END | disposition home or self-care (01) | LOC: LABSPEC 16:16 | PROVIDERS: PCP Family Medicine; Referring Provider Family Medicine; Visit Provider Family Medicine | DX: R82.90 Unspecified abnormal findings in urine (principal) | CPT/HCPCS: 87077; 87086; 87088; 87186 ==

== ENCOUNTER → 2022-11-08 | Outpatient (CLI) | payer MEDICARE, OTHER, SELFPAY | END | disposition home or self-care (01) | LOC: LABSPEC 15:26 | PROVIDERS: PCP Family Medicine; Referring Provider Family Medicine; Visit Provider Family Medicine | DX: N39.0 Urinary tract infection, site not specified (principal) | CPT/HCPCS: 87077; 87086; 87088; 87186 ==

== ENCOUNTER → 2023-06-28 | Outpatient (CLI) | payer MEDICARE, OTHER, SELFPAY | END | disposition home or self-care (01) | PROVIDERS: PCP Family Medicine; Visit Provider Family Medicine | DX: R82.90 Unspecified abnormal findings in urine (principal) | CPT/HCPCS: 87077; 87086; 87088; 87186 ==

== ENCOUNTER 2023-07-05 08:45 | Outpatient (CLI) | payer MEDICARE, OTHER, SELFPAY ==
[2023-07-05 10:19] LABS: Absolute Lymphocyte Count 1.84 X10^3/uL (0.83-4.51); Absolute Neutrophil Count 3.1 X10^3/uL (2.0-7.7); Basophil# 0.04 X10^3/uL; Basophil% 0.7 % (0-1); Eosinophil# 0.39 X10^3/uL; Eosinophils% 6.6 % (0-5); Hematocrit 38.4 % (40-54); Hemoglobin 12.8 g/dL (13.0-16.5); Lymphocyte # 1.84 X10^3/ul (0.83-4.51); Lymphocyte % 31.3 % (19-41); Mean Corp Hgb Conc 33.3 g/dL (32-36); Mean Corpuscular Hgb 30.4 pg (27.0-32.0); Mean Corpuscular Volume 91.2 fL (80-94); Mean Platelet Vol. 11.1 fl (6.2-12.0); Monocyte# 0.47 X10^3/uL; NRBC Flagged by Analyzer 0 % (0-5); Neutrophil # 3.11 X10^3/uL (2.7-7.7); Neutrophil % 53.1 % (47-70); Platelet Count 163 K/mm3 (150-450); RBC Distribution Width CV 13.8 % (11.6-14.6); RBC Distribution Width SD 46.5 fl (35.1-43.9); Red Blood Count 4.21 M/mm3 (4.6-6.2); White Blood Count 5.9 K/mm3 (4.4-11.0)
[2023-07-05 10:54] LABS: ALB/GLOB Ratio 0.8 RATIO (0.9-2.4); AST(SGOT) 14 U/L (15-37); Alanine Aminotransfer ALT/SGPT 20 U/L (16-61); Albumin, Serum 3.1 g/dL (3.2-5.0); Alkaline Phosphatase 55 U/L (45-117); Anion Gap 5 (5-15); BUN 14 mg/dL (7-18); BUN/Creat Ratio 14.1 RATIO (10-20); Calcium,Total 8.4 mg/dL (8.5-10.1); Chloride 114 mmol/L (98-107); Cholesterol 70 mg/dL (200); Creatinine, Serum 0.99 mg/dL (0.70-1.30); EST Glomerular Filtration Rate 78 mL/min (>60); Est Glom Filt Rate - Afr Amer 94 mL/min (>60); Globulin 3.8 g/dL (2.2-4.2); Glucose 83 mg/dL (74-106); High Density Lipoprotein 31 mg/dL; PSA,Total - Annual Screen < 0.01 ng/mL (0.00-4.00); Potassium 3.5 mmol/L (3.5-5.1); Protein, Total 6.9 g/dL (6.4-8.2); Sodium Level 142 mmol/L (136-145); Thyroid Stim Hormone (TSH) 2.35 uIU/mL (0.358-3.74); Triglycerides 57 mg/dL; Very Low Density Lipoprotein 11 mg/dL (5-40)
== END 2023-07-05 23:59 | disposition home or self-care (01) ==
LOC: MFPLAB 08:45
PROVIDERS: PCP Family Medicine; Visit Provider Family Medicine
DX: I48.0 Paroxysmal atrial fibrillation (principal); E11.9 Type 2 diabetes mellitus without complications; R82.90 Unspecified abnormal findings in urine
CPT/HCPCS: 36415; 80053; 80061; 84153; 84443; 85025; G0103

== ENCOUNTER → 2024-06-19 | Outpatient (CLI) | payer MEDICARE, OTHER, SELFPAY ==
[2024-06-19 10:35] LABS: Absolute Lymphocyte Count 1.88 X10^3/uL (0.83-4.51); Absolute Neutrophil Count 3.5 X10^3/uL (2.0-7.7); Basophil# 0.05 X10^3/uL; Basophil% 0.8 % (0-1); Eosinophil# 0.38 X10^3/uL; Eosinophils% 5.8 % (0-5); Hematocrit 38.9 % (40-54); Hemoglobin 12.4 g/dL (13.0-16.5); Lymphocyte # 1.88 X10^3/ul (0.83-4.51); Lymphocyte % 28.7 % (19-41); Mean Corp Hgb Conc 31.9 g/dL (32-36); Mean Corpuscular Hgb 29.2 pg (27.0-32.0); Mean Corpuscular Volume 91.5 fL (80-94); Mean Platelet Vol. 11.2 fl (6.2-12.0); Monocyte# 0.67 X10^3/uL; Monocyte% 10.2 % (0-10); NRBC Flagged by Analyzer 0 % (0-5); Neutrophil # 3.53 X10^3/uL (2.7-7.7); Neutrophil % 53.9 % (47-70); Platelet Count 164 K/mm3 (150-450); RBC Distribution Width CV 13.8 % (11.6-14.6); Red Blood Count 4.25 M/mm3 (4.6-6.2); White Blood Count 6.6 K/mm3 (4.4-11.0)
[2024-06-19 11:35] LABS: ALB/GLOB Ratio 1.1 RATIO (0.9-2.4); AST(SGOT) 20 U/L (15-37); Alanine Aminotransfer ALT/SGPT 16 U/L (16-61); Albumin, Serum 3.5 g/dL (3.2-5.0); Alkaline Phosphatase 57 U/L (45-117); Anion Gap 9 (5-15); BUN 15 mg/dL (7-18); BUN/Creat Ratio 13.5 RATIO (10-20); Calcium,Total 9.1 mg/dL (8.5-10.1); Chloride 109 mmol/L (98-107); Cholesterol 83 mg/dL (200); Creatinine, Serum 1.11 mg/dL (0.70-1.30); EST Glomerular Filtration Rate 68 mL/min (>60); Est Glom Filt Rate - Afr Amer 83 mL/min (>60); Globulin 3.3 g/dL (2.2-4.2); Glucose 83 mg/dL (74-106); High Density Lipoprotein 34 mg/dL; Potassium 3.8 mmol/L (3.5-5.1); Protein, Total 6.8 g/dL (6.4-8.2); Sodium Level 140 mmol/L (136-145); Triglycerides 85 mg/dL; Very Low Density Lipoprotein 17 mg/dL (5-40)
== END | disposition home or self-care (01) ==
LOC: MFPLAB 08:43
PROVIDERS: PCP Family Medicine; Visit Provider Family Medicine
DX: I10 Essential (primary) hypertension (principal); E11.9 Type 2 diabetes mellitus without complications
CPT/HCPCS: 36415; 80053; 80061; 83036; 84443; 85025

== ENCOUNTER 2025-09-05 09:18 | Observation (INO) | payer MEDICARE, OTHER, SELFPAY ==
[2025-09-05] VITALS (8 sets, daily range): BP systolic 139–188; BP diastolic 51–73; PULSE 56–72; RESP 13–18; TEMP 36.6–37.1; O2SAT 97–100; BMI 25.7
--- NOTE | 2025-09-05 09:27 | RAD_ITS ---
PROCEDURE: LUMBAR SPINE 2 OR 3 VIEWS 09/05/2025 REASON FOR EXAM: PAIN AFTER FALL TECHNIQUE: Procedure Code: RADSPLL Modality: DX Procedure: LUMBAR SPINE 2 OR 3 VIEWS COMPARISON: CT abdomen and pelvis 05/13/2020. FINDINGS: Vertebrae: No acute bony abnormalities. Discs: Mild sclerotic changes at the endplates. Alignment: Unremarkable. Other: Vascular atherosclerotic calcifications. RAD/Lumbar Spine 2 or 3 Views IMPRESSION: No acute osseous abnormalities. Reading Location: [id number]
--- NOTE | 2025-09-05 09:27 | RAD_ITS ---
PROCEDURE: CHEST 1 VIEW (PORTABLE) 09/05/2025 REASON FOR EXAM: COUGH. Lower back pain after fall. TECHNIQUE: Frontal view of the chest. COMPARISON: 08/17/2022 FINDINGS: LUNGS AND PLEURA: Minimal strand-like opacities in both lung bases, greater on the left. No pleural effusion or pneumothorax. HEART AND MEDIASTINUM: The heart size and mediastinal contours are normal. AORTA: Mildly calcified aortic arch. BONES: No acute osseous abnormality. RAD/Chest 1 View (Portable) IMPRESSION: Bibasilar strand-like opacities, likely atelectasis/scarring. Acute infection is not excluded. Reading Location: [id number]
--- NOTE | 2025-09-05 09:29 | EX.ED.DYSGE1 ---
HPI History of Present Illness Chief Complaint: General Illness Informant: patient and EMS Narrative Narrative: Patient is a 80-year-old male presenting with low back pain following a fall four days ago. - Reports slipping and falling in the yard four days ago; denies head injury or significant pain at the time of the fall. - Able to get up and walk immediately after the fall without difficulty; felt fine for the rest of the day. - Onset of intermittent low back pain two days ago, which initially resolved but has since recurred and is now persistent to the point where he cannot get up to stand or walk due to the pain - Denies pain in the abdomen, neck, or upper back. - Denies numbness or pain radiating to the legs; able to move without difficulty. - Denies pain or issues with arms. - Denies use of anticoagulants. - No history of heart valve surgery. [facility] Medical History Wears hearing aid in both ears Kidney stones Abdominopelvic abscess Wound infection after surgery HISTORY FISTULA REPAIRED Hypertension Atherosclerosis of coronary artery of [place] heart without angina pectoris History of multiple strokes Essential hypertension Smoking greater than 30 pack years Fistula Paroxysmal atrial fibrillation Cellulitis of right abdominal wall History of bladder cancer Hyperlipemia History of stroke Hearing loss Home Medications ?Medication ?Instructions ?Recorded ?Last Taken ?Type multivitamin 1 tab PO DAILY GENERAL HEALTH 03/17/19 09/05/25 History atorvastatin 20 mg tablet 20 mg PO DAILY HIGH CHOLESTROL #90 04/29/19 09/04/25 Rx tabs metoprolol succinate 25 mg 25 mg PO DAILY #30 tabs 02/20/21 09/05/25 Rx tablet,extended release 24 hr ferrous sulfate 13 mg PO DAILY 09/05/25 09/05/25 History lisinopril 10 mg tablet 10 mg PO DAILY 09/05/25 09/05/25 History naproxen sodium 220 mg tablet 440 mg PO DAILY PRN pain 09/05/25 09/05/25 History (Aleve) warfarin 5 mg tablet 5 mg PO SUMOTUTHFRSA 09/05/25 09/05/25 History Allergy/AdvReac Type Severity Reaction Status Date / Time azithromycin (From Zithromax) Allergy Severe Hives Verified 09/05/25 09:23 meloxicam (From Mobic) Allergy PT UNSURE Verified 09/05/25 09:23 OF REACTION Family History Brother Heart disease Father Cancer Heart disease Mother Heart disease Family History no significant family his Surgical History Status post exploratory laparotomy History of urostomy Status post colostomy Status post colostomy History of bilateral hip replacements History of shoulder surgery Surgical History unable to obtain Social History Smoking Status: Former smoker alcohol intake: never substance use type: does not use what type of physical activity do you participate in: none ROS ROS ED Constitutional Constitutional ED: Denies chills or fever(s) Eyes Eyes: Denies change in vision or diplopia ENT ENT ED: Denies rhinorrhea or sore throat Cardiovascular Cardiovascular: Denies chest pain or palpitations Respiratory/Chest Respiratory/Chest: Reports cough; Denies dyspnea Gastrointestinal Gastrointestinal: Denies abdominal pain, diarrhea, nausea or vomiting Genitourinary Genitourinary ED: Denies dysuria or hematuria Musculoskeletal Musculoskeletal: Reports back pain; Denies neck pain Integumentary Denies abscess or rash Neurologic Neurologic: Denies headache(s), paresthesias or weakness Psychiatric Psychiatric: Denies suicidal thoughts EXAM Physical Exam Const Vital Signs: 09/05/25 09:19 09/05/25 09:56 09/05/25 11:40 Temperature 98.3 F Temperature Source Axillary Pulse Rate 56 L 63 Respiratory Rate 18 13 Respiratory Effort Normal Respiratory Pattern Normal Blood Pressure 178/73 H 180/66 H Blood Pressure Mean 108 104 Pulse Ox 100 100 Oxygen Delivery Method Room Air Room Air 09/05/25 13:00 Temperature Temperature Source Pulse Rate 58 L Respiratory Rate 14 Respiratory Effort Respiratory Pattern Blood Pressure 188/63 H Blood Pressure Mean 104 Pulse Ox 100 Oxygen Delivery Method Positive well nourished and well developed General Appearance ED: well developed and NAD HEENT Reports moist mucous membranes normocephalic and atraumatic Eyes PERRL and EOMs intact bilaterally Neck full ROM and supple Resp normal respiratory effort and clear to auscultation bilaterally Cardio regular rate and regular rhythm Heart Sounds: murmur systolic GI non-tender and non-distended Auscultation: normoactive bowel sounds Palpation: soft Narrative: Good perianal sensation and anal tone. Back/Spine no CVA tenderness Back/Spine Narrative: No deformities. Pain and mild tenderness in the midline over the lower lumbosacral spine. There is no thoracic or cervical tenderness/pain. General Back: other Limited range of motion due to pain able to roll over on his own with little assistance Extremity normal to inspection General Extremety ED: Negative for edema, pulses abnormal or tenderness General Extremity: Negative for edema or pulses abnormal Neuro oriented x3, CN's II-XII intact bilaterally and no sensory deficits noted Sensorium / Orientation: awake and alert Motor Exam: strength 5/5 throughout Psych mental status grossly normal Skin no rashes or lesions noted and no wounds MDM MDM MDM Narrative Medical decision making narrative: Assessment: The patient is a 80-year-old male presenting for severe low back pain that began two days after a same-level fall four days ago. He reports intermittent low lumbar pain now constant and worsened, without radicular symptoms or neurologic deficits; gait limited by pain. He is on chronic warfarin therapy. Lumbar spine radiographs show no acute compression fracture, and portable chest radiograph obtained for associated cough shows no focal pneumonia, only chronic basal changes favored to be atelectasis or scarring. Labs are unremarkable. Given negative imaging and intact neurologic exam, intractable mechanical low back pain after recent fall is the most likely diagnosis; spinal cord compression, and infectious etiology are unlikely, no fractures noted on plain radiography. Plan: - Administered IV morphine for analgesia. - Attempted ambulation post-analgesia; patient remained unable to stand due to pain. - Discussing admission with hospitalist for pain control and further possible spine evaluation. Diagnostics: - Lumbar spine X-ray, 3v: no acute compression fracture; no acute osseous abnormality. Independently interpreted by Jacques padilla. - Portable chest X-ray: no pneumonia; chronic basal atelectasis/scarring. Independently interpreted by Jacques padilla. - Labs: reported unremarkable. Reevaluations: - After morphine, patient still in too much pain to stand; neurologically intact with good perianal sensation. Portions of this note were generated using voice recognition software (GRAYL Dictation). I have reviewed the contents and every effort has been made to ensure accuracy; however, inadvertent errors in grammar, spelling, punctuation, or word choice may occur, that were not noted before signing the document and should not alter the intended clinical meaning. History & Record Review Discussion w/independent historian: EMS personnel, Patient and Significant other Lab Data Attestation: I reviewed the patient's lab results. Labs: Laboratory Results - last 24 hr 09/05/25 09/05/25 09:45 13:06 WBC 6.4 RBC 4.28 L Hgb 13.1 Hct 38.6 L MCV 90.2 MCH 30.6 MCHC 33.9 RDW Std Deviation 47.1 H RDW Coeff of Carie 14.4 Plt Count 144 L MPV 10.5 Immature Gran % (Auto) 0.300 Neut % (Auto) 61.5 Lymph % (Auto) 25.1 [place] % (Auto) 8.2 Eos % (Auto) 4.6 Baso % (Auto) 0.3 Absolute Neuts (auto) 3.9 Absolute Lymphs (auto) 1.60 Nucleated RBC % 0 PT 23.0 H INR 2.0 Sodium 143 Potassium 3.7 Chloride 106 Carbon Dioxide 28.0 Anion Gap 10 BUN 13 Creatinine 1.14 Estim Creat Clear Calc 51.67 Est GFR (MDRD) Non-Af 66 BUN/Creatinine Ratio 11.1 Glucose 71 Calcium 9.3 Radiography Diagnostic Testing: Clinical Impression(s) from Imaging Studies Chest X-Ray 09/05/25 09:27 IMPRESSION: Bibasilar strand-like opacities, likely atelectasis/scarring. Acute infection is not excluded. Reading Location: [facility] Lumbar Spine X-Ray 09/05/25 09:27 IMPRESSION: No acute osseous abnormalities. Reading Location: [facility] Lumbar Spine CT 09/05/25 13:05 IMPRESSION: Degenerate changes predominantly for moderate canal stenosis and mild phlebitis stenosis at L4-L5. No acute injury to the lumbar spine. Reading Location: [facility] I reviewed the results from the lumbar spine CT and agree with them. Management Discussion w/another healthcare provider: Hospitalist Discharge Plan Dx/Rx/DC Orders Clinical Impression: Intractable low back pain, Unable to stand up, Acute cough, Warfarin-induced coagulopathy, Fall from slipping on wet surface Disposition Disposition: Acute Care Hospital [facility] Discharge Date/Time: 09/05/25 14:31
[2025-09-05 10:09] LABS: Hematocrit 38.6 % (40-54); Hemoglobin 13.1 g/dL (13.0-16.5); Immature Granulocytes Count 0.020 X10^3/uL (0.0-0.0); Mean Corp Hgb Conc 33.9 g/dL (32-36); Mean Corpuscular Volume 90.2 fL (80-94); Mean Platelet Vol. 10.5 fl (6.2-12.0); NRBC Flagged by Analyzer 0 % (0-5); Platelet Count 144 K/mm3 (150-450); RBC Distribution Width CV 14.4 % (11.6-14.6); RBC Distribution Width SD 47.1 fl (35.1-43.9); Red Blood Count 4.28 M/mm3 (4.6-6.2); White Blood Count 6.4 K/mm3 (4.4-11.0)
[2025-09-05 10:17] LABS: Anion Gap 10 (5-15); BUN 13 mg/dL (4-19); BUN/Creat Ratio 11.1 RATIO (10-20); Calcium,Total 9.3 mg/dL (7.6-11.0); Carbon Dioxide 28.0 mmol/L (21.0-32.0); Chloride 106 mmol/L (98-108); Estimated Creatinine Clearance 51.67 ml/min (50-250); Glucose 71 mg/dL (70-99); Potassium 3.7 mmol/L (3.3-5.1)
--- OUTSIDE RECORDS SUMMARY | 2025-09-05 10:38 | XMS RPT_ITS | CCD ---
Author Organization [facility] Care Team Providers Care Digester Capper Name Role Phone EH, BUCK J Unavailable Unavailable EH, BUCK J Unavailable Unavailable EH, BUCK J Unavailable Unavailable EH, BUCK J Unavailable Unavailable ELIZABETH PACHECO Unavailable Unavailable GADY, MICHEAL Unavailable Unavailable GADY, MICHEAL Unavailable Unavailable UNKNOWN, PCP Unavailable Unavailable CAMACHO, TIGIST E Unavailable Unavailable CAMACHO, TIGIST E Unavailable Unavailable NATALIYA, BISHOP Unavailable Unavailable NATALIYA BISHOP Unavailable Unavailable ELIZABETH PACHECO Unavailable Unavailable Dallas Ortiz Unavailable Unavailable Dallas Ortiz Unavailable Unavailable Shine Rosas Unavailable Unavailabl e Seng Thompson Unavailable Unavailabl e UNKNOWN, PCP Unavailable Unavailable Seng Carlisle DO Primary Care Provider Merly PA-C, Arlene Unavailable Merly PA-C, Arlene Unavailable Og Goodwin MD Unavailable [phone] Ayo Sorenson RN Unavailable Terrell Evans Primary Care Provider Merly PA-C, Alrene Unavailable Merly PA-C, Arlene Unavailable [phone] Og Goodwin MD Unavailable Ayo Sorenson RN Unavailable Dr. Nataliya Avila Emergency Provider DO Terrell Evans Primary Care Provider Dr. Rich Corrigan Admit Provider [phone] Rich Corrigan Attending Provider Dr. Rich Corrigan Other Provider Dr. Betty Kirkland Other Provider Dr. Pio Sandhu Attending Provider Dr. Pio Sandhu Other Provider John Mullins MD Unavailable John Mullins MD Unavailable Delta RN, Ayo Unavailable Terrell Evans DO Primary Care Provider John Mullins MD Unavailable Og Goodwin MD Unavailable Delta RN, Ayo Unavailable Terrell Evans DO Primary Care Provider [phone] Dr. Nataliya Avila Emergency Provider [phone] DO Terrell Evans Primary Care Provider Dr. Rich Corrigan Admit Provider Dr. Rich Corrigan Attending Provider Dr. Rich Corrigan Other Provider Dr. Betty Kirkland Other Provider Dr. Pio Sandhu Attending Provider Dr. Pio Sandhu Other Provider Og Goodwin MD Unavailable John Mullins MD Unavailable John Mullins MD Unavailable Delta RN, Ayo Unavailable Terrell Evans DO Primary Care Provider Francisco Zee Unavailable Og Goodwin MD Unavailable Delta RN, Ayo Unavailable Og Goodwin MD Unavailable Terrell Evans DO Primary Care Provider [phone] Terrell Evans DO Primary Care Provider JOCELINAU, SEASON M Attending Unavailable LIAN, SEASON M Referring Unavailable TERRELL EVANS ELMO Primary Care UnavailTERRELL Hatfield Primary Care Unavailabl e LIAN, SEASON M Referring Unavailable TERRELL EVANS Primary Care Unavailabl e LIAN, SEASON M Attending Unavailable NATHANTERRELL PATEL ELMO Primary Care Unavailabl e LIAN, SEASON Referring Unavailable Constanza Caceres Attending Unavailable Nicki Chalon Primary Care Unavailable Allergies Allergy Classification Reported Allergen(s) Allergy Type Date of Onset Reaction(s) Facility (20 sources) Azithromycin; Translations: [AZITHROMYCIN] Drug Allergy 04-07-2019 Unknown [facility] (20 sources) meloxicam; Translations: [MELOXICAM] Drug Allergy 04-07-2019 Unknown [facility] (1 source) Azithromycin Drug Allergy 08-17-2022 [facility] (1 source) meloxicam Drug Allergy 08-17-2022 [facility] Medications Current Medications Medication Drug Class(es) Dates Sig (Normalized) Sig (Original) acetaminophen 325 mg oral tablet (20 sources) Start: 07-21-2019 take 325-650 mg by mouth every six hours as needed acetaminophen (TYLENOL) 325 mg tablet Take 1-2 tablets by mouth every 6 hours as needed for Pain. 07/21/2019 Active Comment on above: Take 1-2 tablets by mouth every 6 hours as needed for Pain. amoxicillin 500 mg oral capsule (3 sources) Penicillin-class Antibacterial Start: 03-13-2022 End: 03-27-2022 take 1 capsule by mouth every twelve hours amoxicillin (POLYMOX, AMOXIL) 500 mg capsule Take 1 capsule by mouth every 12 hours for 14 days. 28 capsule 0 03/13/2022 03/27/2022 Active Comment on above: Take 1 capsule by [facility] every 12 hours for 14 days. amoxicillin 875 mg / clavulanate 125 mg oral tablet (20 sources) Penicillin-class Antibacterial Start: 05-21-2022 End: 06-15-2022 amoxicillin-clavul anic acid (AUGMENTIN) 875-125 mg per tablet [The details of the medication are not available because there are pending changes by a home health clinician.] 20 tablet 0 05/21/2022 06/15/2022 Discontinued (Course of therapy completed) Start: 05-21-2022 End: 05-31-2022 take 1 tablet by mouth every twelve hours amoxicillin-clavulanic acid (AUGMENTIN) 875-125 mg per tablet Take 1 tablet by mouth every 12 hours for 10 days. 20 tablet 0 05/21/2022 05/31/2022 Active Start: 05-04-2020 Amoxicillin-Po t Clavulanate Active 1 EACH PO TWICE A DAY May 04, 2020 4:35pm Start: 05-12-2019 End: 07-10-2019 take 1 tablet by mouth twice daily Amoxicillin-Pot Clavulanate (Augmentin) 875-125 mg tablet Discontinued 1 TABLET PO TWICE A DAY May 11, 2019 11:00pm July 10, 2019 10:03am Start: 03-28-2019 End: 04-10-2019 Amoxicillin-Pot Clavulanate Discontinued 1 EACH PO TWICE A DAY March 27, 2019 11:00pm April 10, 2019 8:43am Comment on above: Take 1 tablet by ava th twice daily. Take 1 tablet by ava th every 12 hours for 10 days. [The details of the medication are not available because there are pending changes by a home health clinician.] ascorbic acid 500 mg oral tablet (20 sources) Vitamin C Start: 08-03-2019 take 500 mg by mouth once daily Ascorbic Acid (Vitamin C) Active 500 MG PO DAILY August 03, 2019 12:00am Start: 08-03-2019 take 500 mg by mouth once mike y Ascorbic Acid (Vitamin C) Active 500 MG PO DAILY August 03, 2019 2:43am take 1 tablet by ava th twice daily ascorbic acid, vitamin C, (VITAMIN C) 500 mg tablet Take 500 mg by mouth twice daily. Active Comment on above: Take 500 mg by mouth twice daily. ciprofloxacin 500 mg oral tablet (13 sources) Quinolone Antimicrobial Start: 02-09-20 End: 02-16-20 take 1 tablet by mouth every twelve hours ciprofloxacin HCl (CIPRO) 500 mg tablet Take 1 tablet by mouth every 12 hours for 7 days. 14 tablet 0 02/08/2022 02/15/2022 Active Start: 09-16-2019 End: 12-16-2019 take 2 tablets by mouth twice daily Ciprofloxacin Hcl (Cipro) 250 mg tablet Discontinued 500 MG PO TWICE A DAY September 16, 2019 12:00am December 16, 2019 9:32am Comment on above: [facility]. doxycycline hyclate 100 mg oral capsule (4 sources) Tetracycline-class Drug Start: 05-21-2022 End: 06-15-2022 doxycycline hyclate (VIBRAMYCIN) 100 mg capsule [The details of the medication are not available because there are pending changes by a home health clinician.] 20 capsule 0 05/21/2022 06/15/2022 Discontinued (Course of therapy completed) Comment on above: Take 1 capsule by mo [facility] every 12 hours 6am/6pm for 10 days. [The details of the medication are not available because there are pending changes by a home health clinician.] iv contrast (will be provided with radiology test) (12 sources) Start: 09-07-2022 iv contrast (will be provided with radiology test) Indications: Lung nodule , Pre-op testing , SOB (shortness of breath) CT Chest W -Inject, intravenously, once for 1 dose.No IV access, insert saline lock prior to the beginning of sedation, infusion, injection of imaging exam. Discontinue saline lock post exam. If Pt. has a central line or IVAD, may access for administration according to line specific nursing protocol. Once exam is complete flush line and de-access according to line specific nursing protocol in the CT contrast administration guidelines link. 1 Each 09/07/2022 Active Start: 09-07-2022 iv contrast (w ill be provided with radiology test) Indications: Lung nodule , Pre-op testing , SOB (shortness of breath) CT Chest W -Inject, intravenously, once for 1 dose.No IV access, insert saline lock prior to the beginning of sedation, infusion, injection of imaging exam. Discontinue saline lock post exam. If Pt. has a central line or IVAD, may access for administration according to line specific nursing protocol. Once exam is complete flush line and de-access according to line specific nursing protocol in the CT contrast administration guidelines link. 1 Each 0 09/07/2022 Active Start: 02-02-2022 End: 05-07-2022 iv contrast (will be provide d with radiology test) MRI ABD/PEL Inject, intravenously, once for 1 dose. No IV access, insert saline lock prior to the beginning of sedation, infusion, injection of imaging exam. Discontinue saline lock post exam. If Pt. has a central line or IVAD, may access for administration according to line specific nursing protocol. Once exam is complete flush line and de-access according to line specific nursing protocol in the MR contrast administration guidelines link. 1 Each 0 02/02/2022 02/03/2022 Active Comment on above: MRI ABD/PEL Inject, intravenously, once for 1 dose. No IV access, insert saline lock prior to the beginning of sedation, infusion, injection of imaging exam. Discontinue saline lock post exam. If Pt. has a central line or IVAD, may access for administration according to line specific nursing protocol. Once exam is complete flush line and de-access according to line specific nursing protocol in the MR contrast administration guidelines link. CT Chest W -Inject, intravenously, once for 1 dose.No IV access, insert saline lock prior to the beginning of sedation, infusion, injection of imaging exam. Discontinue saline lock post exam. If Pt. has a central line or IVAD, may access for administration according to line specific nursing protocol. Once exam is complete flush line and de-access according to line specific nursing protocol in the CT contrast administration guidelines link. lactose-reduced food (BOOST ORAL) (20 sources) Start: 05-23-2022 lactose-reduced food (BOOST ORAL) Take 1 Can by mouth four times daily. 05/23/2022 Active Start: 05-23-2022 lactose-reduce d food (BOOST ORAL) Take 1 Can by mouth four times daily. 0 05/23/2022 Active Comment on above: Take 1 Can by mouth four times daily. levoFLOXacin 500 mg oral tablet (20 sources) Quinolone Antimicrobial Start: 05-04-20 take 500 mg by mouth once daily Levofloxacin Active 500 MG PO DAILY May 04, 2020 4:35pm Comment on above: Take 500 mg by mouth once daily. lisinopril 20 mg oral tablet (20 sources) Angiotensin Converting Enzyme Inhibitor Start: 04-25-20 22 take 1 tablet by mouth once daily lisinopril (ZESTRIL, PRINIVIL) 20 mg tablet Take 20 mg by mouth once daily. 04/25/2022 Active LISINOPRIL ORAL Take by mouth. 0 Active Comment on above: Take by mouth. Take 20 mg by mouth once daily. MULTI-VITAMIN ORAL (20 sources) take 1 tablet by mouth once daily MULTI-VITAMIN ORAL Take 1 tablet by mouth once daily. Active take 1 tablet by mouth once mike y MULTI-VITAMIN ORAL Take 1 tablet by mouth once daily. 0 Active Comment on above: Take 1 tablet by ava th once daily. Multivitamin preparation (9 sources) Start: 03-17-2019 take 1 tablet by mouth once daily Multivitamin Active 1 TABLET PO DAILY March 17, 2019 8:45am Start: 03-17-2019 take 1 tablet by ava th once daily Multivitamin Active 1 TABLET PO DAILY March 16, 2019 11:00pm Start: 03-17-2019 take 1 tablet by ava th once daily Multivitamin Active 1 TABLET PO DAILY March 17, 2019 12:00am polyethylene glycol 3350 14080 mg powder for oral solution (9 sources) Osmotic Laxative Start: 10-17-2022 polyethylene glycol 3350 (MIRALAX, GLYCOLAX) 17 gram packet Take 1 Packet by mouth once daily. Dissolve dose in 4 - 8 ounces of liquid and take as directed. 10/17/2022 Active Comment on above: Take 1 Packet by ava th once daily. Dissolve dose in 4 - 8 ounces of liquid and take as directed. Potassium (20 sources) POTASSIUM ORAL T hugo by mouth once daily. 20 BID Active POTASSIUM ORAL T hugo by mouth once daily. 20 BID 0 Active Comment on above: Take by mouth once d aily. 20 BID warfarin sodium 6 mg oral tablet (20 sources) Vitamin K Antagonist Start: 10-22-2022 take 1 tablet by mouth once daily warfarin (COUMADIN) 6 mg tablet Take 1 tablet by mouth daily as directed. Saturday-Saturday take 6 mg, Saturday and Saturday, take 5 mg 10/22/2022 Active Start: 07-06-2022 warfarin (COUM MEGHANA) 6 mg tablet [The details of the medication are not available because there are pending changes by a home health clinician.] 0 07/06/2022 Active Start: 05-13-2022 take 5 mg by mouth once daily Warfarin Active 5 MG PO DAILY May 13, 2022 12:49pm take saturday and saturday Start: 06-08-2020 End: 05-13-2022 take 4 mg by mouth once daily Warfarin Discontinued 4 MG PO DAILY June 07, 2020 11:00pm May 13, 2022 12:49pm take saturday and saturday Start: 08-05-2019 End: 08-07-2019 take 2 mg by mouth once daily Warfarin Discontinued 2 MG PO DAILY August 05, 2019 12:00am August 07, 2019 2:12pm Start: 06-11-2019 End: 07-10-2019 Warfarin (Coumadin) 1 mg tab let Discontinued 1 MG PO DAILY June 10, 2019 11:00pm July 10, 2019 10:04am Take with 6 mg tablet on , Saturday and Saturday for a total dose of 7 mg. Continue 6 mg on Saturday, Saturday, Saturday and Saturday. Start: 03-26-2019 End: 06-11-2019 take 6 mg by mouth once daily Warfarin Discontinued 6 MG PO DAILY April 10, 2019 11:46am June 11, 2019 8:14am Comment on above: Take 6 mg by mouth d aily as directed. [The details of the medication are not available because there are pending changes by a home health clinician.] Take 6 mg by mouth d aily as directed. Saturday, , Sat take 6 mg, through Saturday, take 5 mg ON HOLD OF 06/21/22 Take 1 tablet by ava daily as directed. Saturday-Saturday take 6 mg, Saturday and Saturday, take 5 mg Completed/Discontinued Medications Medication Drug Class(es) Dates Sig (Normalized) Sig (Original) acetaminophen 325 mg / HYDROcodone bitartrate 5 mg oral tablet (9 sources) Opioid Agonist Start: 04-14-2019 End: 04-18-2019 take 1 tablet by mouth every six hours as needed Hydrocodone-Acetam inophen Discontinued 1 TABLET PO EVERY 6 HOURS NEEDED 07 02April 14, 2019 April 17, 2019 11:09pm atorvastatin 20 mg oral tablet (20 sources) HMG-CoA Reductase Inhibitor Start: 03-17-2019 End: 04-29-2019 take 20 mg by mouth once daily Atorvastatin Discontinued 20 MG PO DAILY April 10, 2019 11:46am April 29, 2019 8:55am Comment on above: Take 20 mg by mouth once daily. 24 hr metoprolol succinate 25 mg extended release oral tablet (20 sources) beta-Adrenergic Jaylen Start: 12-16-2019 End: 02-20-2021 take 25 mg by mouth once daily Metoprolol Succinate Discontinued 25 MG PO DAILY December 16, 2019 9:57am February 20, 2021 8:45am Start: 08-03-2019 End: 12-16-2019 take 25 mg by mouth once daily Metoprolol Succinate Di scontinued 25 MG PO DAILY August 07, 2019 2:26pm December 16, 2019 9:33am Start: 03-17-2019 End: 08-03-2019 take 50 mg by mouth once daily Metoprolol Succinate Di scontinued 50 MG PO DAILY June 11, 2019 8:14am August 03, 2019 1:49am Comment on above: Take 25 mg by mouth once daily. metroNIDAZOLE 500 mg oral tablet (16 sources) Nitroimidazole Antimicrobial Start: 04-10-2022 metroNIDAZOLE (FLAGYL) 500 mg tablet Indications: Enterocutaneous fistula Take 1 tablet by mouth at 9pm and take 1 tablet by mouth at 11pm the night before surgery. 2 tablet 0 04/10/2022 Active Start: 02-08-2022 End: 02-15-2022 take 1 tablet by mouth every eight hours metroNIDAZOLE (FLAGYL) 500 mg tablet Take 1 tablet by mouth every 8 hours for 7 days. 21 tablet 0 02/08/2022 02/15/2022 Active Start: 10-30-2019 End: 12-16-2019 take 500 mg by mouth three times daily Metronidazole Discontinued 500 MG PO THREE TIMES A DAY October 30, 2019 12:00am December 16, 2019 9:33am Comment on above: Take 1 tablet by ava th every 8 hours for 7 days. Take 1 tablet by ava th at 9pm and take 1 tablet by mouth at 11pm the night before surgery. neomycin sulfate 500 mg oral tablet (3 sources) Aminoglycoside Antibacterial Start: 022 neomycin 500 mg tablet Indications: Enterocutaneous fistula Take 2 tablets by mouth at 9pm and take 2 tablets by mouth at 11pm the night before surgery. 4 tablet 0 04/10/2022 Active Comment on above: Take 2 tablets by mo ut at 9pm and take 2 tablets by mouth at 11pm the night before surgery. oxyCODONE hydrochloride 5 mg oral tablet (7 sources) Opioid Agonist Start: 023 End: 023 take 1 tablet by mouth every six hours as needed for pain oxyCODONE IR (ROXICODONE) 5 mg immediate release tablet Indications: Lung nodule , Post-op pain Take 1 tablet by mouth every 6 hours as needed for pain for up to 7 days. 28 tablet 0 10/16/2022 10/23/2022 Start: 05-02-2022 End: 05-09-2022 take 1 tablet by mouth every six hours as needed for pain oxyCODONE IR (ROXICODONE) 5 mg immediate release tablet Indications: Postoperative pain Take 1 tablet by mouth every 6 hours as needed for pain for up to 7 days. 28 tablet 0 05/02/2022 05/09/2022 Active Start: 02-08-2022 End: 02-15-2022 take 1 tablet by mouth every six hours as needed oxyCODONE IR (ROXICODONE) 5 mg immediate release tablet Indications: Enterocutaneous fistula , Postprocedural intraabdominal abscess Take 1 tablet by mouth every 6 hours as needed for up to 7 days. 14 tablet 0 02/08/2022 02/15/2022 Active Comment on above: Take 1 tablet by ava th every 6 hours as needed for up to 7 days. Take 1 tablet by ava th every 6 hours as needed for pain for up to 7 days. potassium chloride 10 meq extended release oral tablet (18 sources) Start: 09-16-2019 End: 12-16-2019 take 1 tablet by mouth twice daily Potassium Chloride Discontinued 0 .ROUTE .COMPLEX 60 December 04, 2019 8:05am December 16, 2019 12:03pm TAKE 1 TABLET BY MOUTH TWICE A DAY Problems Active Problems Problem Classification Problem Date Documented Da te Episodic/Chronic Abdominal hernia (1 source) Incisional hernia; Translations: [Incisional hernia without obstruction or gangrene] Episodic Abdominal pain (4 sources) Unspecified abdominal pain; Translations: [Lower abdominal pain] Onset: 7 Episodic Anal and rectal conditions (9 sources) Rectal pain; Translations: [Other specified diseases of anus and rectum] 08-17-2019 Episodic Calculus of urinary tract (9 sources) Kidney stone; Translations: [Calculus of kidney] 10-31-2019 Episodic Cancer of bladder (20 sources) Malignant tumor of urinary bladder; Translations: [Malignant neoplasm of bladder, unspecified] Onset: 2 Chronic Cancer of bronchus; lung (20 sources) Malignant neoplasm of lower lobe of left lung; Translations: [Malignant neoplasm of lower lobe, left bronchus or lung] Onset: 3 Chronic Cardiac dysrhythmias (20 sources) Paroxysmal atrial fibrillation; Translations: [Paroxysmal atrial fibrillation] Onset: 9 07-21-2019 Chronic Coagulation and hemorrhagic disorders (9 sources) Blood coagulation disorder; 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] 08-17-2019 Chronic Coronary atherosclerosis and other heart disease (9 sources) Coronary atherosclerosis; Translations: [Atherosclerotic heart disease of [place] coronary artery without angina pectoris] 08-03-2019 Chronic Disorders of lipid metabolism (20 sources) Hyperlipidemia; Translations: [Hyperlipidemia, unspecified] Onset: 9 07-21-2019 Chronic Essential hypertension (20 sources) Essential hypertension; Translations: [Essential (primary) hypertension] Onset: 9 07-21-2019 Chronic Gastrointestinal hemorrhage (9 sources) Lower gastrointestinal hemorrhage; Translations: [Gastrointestinal hemorrhage, unspecified] 08-17-2019 Episodic Genitourinary symptoms and ill-defined conditions (9 sources) Blood in urine; Translations: [Hematuria, unspecified] 10-31-2019 Episodic Lymphadenitis (1 source) Lymphadenopathy; Translations: [Enlarged lymph nodes, unspecified] Episodic Other aftercare (9 sources) Wound finding; Translations: [Encounter for other specified aftercare] 08-04-2019 Episodic Other aftercare (9 sources) Anticoagulant effect; 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] 10-31-2019 Episodic Other aftercare (1 source) Surgical follow-up; Translations: [Encounter for follow-up examination after completed treatment for conditions other than malignant neoplasm] Episodic Other circulatory disease (9 sources) Bleeding; Translations: [Hemorrhage, not elsewhere classified] 08-04-2019 Episodic Other gastrointestinal disorders (20 sources) Colostomy present; Translations: [Colostomy status] Onset: 9 07-21-2019 Chronic Other gastrointestinal disorders (1 source) Ileostomy present; Translations: [Encounter for attention to ileostomy] Chronic Other gastrointestinal disorders (9 sources) Abdominal wall fistula; 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] 04-16-2019 Episodic Other gastrointestinal disorders (9 sources) Enterocolic fistula; 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] 08-17-2019 Episodic Other lower respiratory disease (2 sources) Dyspnea; Translations: [Shortness of breath] Episodic Other nutritional; endocrine; and metabolic disorders (20 sources) Hypoalbuminemia; Translations: [Other disorders of plasma-protein metabolism, not elsewhere classified] Onset: 9 07-31-2019 Chronic Other screening for suspected conditions (not mental disorders or infectious disease) (1 source) Patient encounter status; Translations: [Encounter for screening for other disorder] Episodic Other upper respiratory disease (1 source) Bronchiolar disease; Translations: [Other diseases of bronchus, not elsewhere classified] Episodic Peritonitis and intestinal abscess (8 sources) Abdominopelvic abscess; Translations: [Peritoneal abscess] Episodic Residual codes; unclassified (1 source) Postoperative state; Translations: [Other specified postprocedural states] Episodic Substance-related disorders (20 sources) Nicotine dependence; Translations: [Nicotine dependence, unspecified, uncomplicated] Onset: 9 07-21-2019 Chronic Unclassified (4 sources) Unknown / UNK(Unknown) Onset: 7 Past or Other Problems Problem Classification Problem Date Documented Da te Episodic/Chronic Administrative/social admission (10 sources) Discharge status; Translations: [Encounter for administrative examinations, unspecified] Onset: 10-15-2022 10-16-2022 Episodic Cancer of bladder (20 sources) H/O: malignant neoplasm; Translations: [Personal history of malignant neoplasm of bladder] Onset: 07-20-2019 07-21-2019 Episodic Complications of surgical procedures or medical care (20 sources) Postprocedural intraabdominal abscess; Translations: [Infection following a procedure, organ and space surgical site, initial encounter] Onset: 07-22-2019 Resolved: 07-31-2019 02-05-2022 Episodic Fluid and electrolyte disorders (20 sources) Hypokalemia; Translations: [Hypokalemia] Onset: 07-22-2019 Resolved: 05-21-2022 02-05-2022 Episodic Other aftercare (20 sources) Long-term current use of anticoagulant; 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] Onset: 07-20-2019 07-21-2019 Episodic Other circulatory disease (20 sources) History of cerebrovascular accident; Translations: [Personal history of transient ischemic attack (TIA), and cerebral infarction without residual deficits] Onset: 07-20-2019 07-21-2019 Episodic Other gastrointestinal disorders (20 sources) Enterocutaneous fistula; 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] Onset: 07-14-2019 07-21-2019 Episodic Other gastrointestinal disorders (20 sources) Intra-abdominal collection; Translations: [Other ascites] Onset: 02-05-2022 02-05-2022 Episodic Other injuries and conditions due to external causes (20 sources) Local infection of wound; Translations: [Other injury of unspecified body region, initial encounter] Onset: 05-18-2022 05-21-2022 Episodic Other lower respiratory disease (20 sources) Nodule of lung; Translations: [Solitary pulmonary nodule] Onset: 03-24-2022 Episodic Other nervous system disorders (20 sources) Postoperative pain ; Translations: [Other acute postprocedural pain] Onset: 07-20-2019 07-21-2019 Episodic Other nervous system disorders (10 sources) Acute postoperative pain; Translations: [Other acute postprocedural pain] Onset: 07-20-2019 10-16-2022 Episodic Other nutritional; endocrine; and metabolic disorders (4 sources) Hypomagnesemia; Translations: [Hypomagnesemia] Onset: 07-21-2019 Resolved: 05-02-2022 05-02-2022 Chronic Other nutritional; endocrine; and metabolic disorders (4 sources) Hypophosphatemia; Translations: [Other disorders of phosphorus metabolism] Onset: 07-22-2019 Resolved: 05-21-2022 05-21-2022 Chronic Other nutritional; endocrine; and metabolic disorders (17 sources) Body mass index 25-29 - overweight; Translations: [Overweight] Onset: 07-20-2019 07-21-2019 Episodic Other nutritional; endocrine; and metabolic disorders (20 sources) Overweight; Translations: [Overweight] Onset: 07-20-2019 05-02-2022 Episodic Screening and history of mental health and substance abuse codes (20 sources) Ex-smoker; Translations: [Personal history of nicotine dependence] Onset: 04-18-2022 Episodic Unclassified (1 source) INTRA-ABDOMINAL ABSCESS Onset: 09-19-2017 Unclassified (1 source) WOUND CHECK Onset: 07-30-2017 Unclassified (6 sources) 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 History of adenocarcinoma of the left lower lobe. Technique: Spiral CT acquisition of the chest from the thoracic inlet to the upper abdomen without contrast. MQ: CTCWO_6 CT Radiation dose: Integrated Dose-length product (DLP) for this visit = 177 mGy*cm CT Dose Reduction Employed: Automated exposure control(AEC) and iterative recon Comparison: Multiple prior CT scans of the chest including the most recent study 04/13/2024 RESULT: Limitations: None. Lines, tubes, and devices: None. Lung parenchyma and airways: The trachea and mainstem bronchi appear patent and devoid of endobronchial lesion. 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 There is mild diffuse bilateral bronchial wall thickening, consistent with chronic airways inflammation. Scattered areas of mild bronchiectasis are also noted, particularly in the lingula and left lower lobe. There is luminal opacification of a dilated subsegmental bronchus in the left lower lobe (7:122), consistent with a mucoid impacted small airway. Postoperative changes of wedge resections involving the left lower lobe are again noted. Subpleural atelectasis or scarring appears unchanged since the prior exam. There are upper lobe predominant centrilobular and paraseptal emphysematous changes. Additional thin-walled cysts or bullae are noted in both lower lobes. An internally septated bulla in the posterior right lower lobe measures 61 x 29 mm. The lungs appear clear of consolidation or indeterminate nodule. Pleural space: No pleural effusion or focal pleural thickening is identified. There is no pneumothorax. Lower neck, lymph nodes, and mediastinum: The thyroid gland appears atrophic. No supraclavicular lymphadenopathy is identified. No region of intrathoracic lymphadenopathy has developed, including the axillae. Subcentimeter lymph nodes are scattered in the mediastinum including the bilateral paratracheal and subcarinal regions and the AP window. The esophagus appears nondilated. Heart, pericardium, and thoracic vessels: The thoracic aorta appears normal in course and caliber. There are atherosclerotic calcifications of the aorta and both the right and left coronary artery circulations. There are calcifications of the aortic valve leaflets, a finding which may be associated with valvular stenosis. The main and central pulmonary arteries are within normal limits of diameter. No specific cardiac chamber enlargement is identified. Papillary muscle calcifications are suspected in the lumen of the left ventricle. There is no pericardial effusion. Bones and soft tissues: The vertebral body heights appear symmetric and well-maintained. There are mild degenerative changes in the thoracic spine. No lytic or destructive osseous lesion is identified. There is symmetric bilateral gynecomastia. The soft tissues of the chest wall otherwise appear unremarkable. Upper abdomen: Visualized portions of the upper abdomen disclose no acute process. There is a 67 x 52 mm cortical cyst of the right kidney. Localizer images: Status post bilateral hip arthroplasties. No additional findings. IMPRESSION: Little change in CT appearance of the chest since 04/13/2024. No evidence of recurrent or metastatic disease is identified. Shape Carver: MARLO Transcribe Date/Time: Oct 15 2024 1:50P Dictated by : NEWTON MERCADO MD This examination was interpreted and the report reviewed and electronically signed by: NEWTON MERCADO MD on Oct 15 2024 2:12PM EST [id number] Normal [facility] CT Chest WO contraston 10-15 IMPRESSION: Little change in CT appearance of the chest since 04/13/2024. No evidence of recurrent or metastatic disease is identified. Shape Carver: [facility] Transcribe Date/Time: Oct 15 2024 1:50P Dictated by : NEWTON MERCADO MD This examination was interpreted and the report reviewed and electronically signed by: NEWTON MERCADO MD on Oct 15 2024 2:12PM EST DIVISION OF RADIOLOGY * * *Final Report* * * DATE OF EXAM: Oct 15 2024 11:35AM [facility] 0541 - CT CHEST WO IVCON / PROCEDURE REASON: Malignant neoplasm of unspecified part of unspecified bronchus or lung (HCC) * * * * Physician Interpretation * * * * EXAMINATION: CHEST CT WITHOUT CONTRAST CLINICAL HISTORY: Malignant neoplasm of unspecified part of unspecified bronchus or lung (HCC). History of adenocarcinoma of the left lower lobe. Technique: Spiral CT acquisition of the chest from the thoracic inlet to the upper abdomen without contrast. MQ: CTCWO_6 CT Radiation dose: Integrated Dose-length product (DLP) for this visit = 177 mGy*cm CT Dose Reduction Employed: Automated exposure control(AEC) and iterative recon Comparison: Multiple prior CT scans of the chest including the most recent study 04/13/2024 RESULT: Limitations: None. Lines, tubes, and devices: None. Lung parenchyma and airways: The trachea and mainstem bronchi appear patent and devoid of endobronchial lesion. 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 There is mild diffuse bilateral bronchial wall thickening, consistent with chronic airways inflammation. Scattered areas of mild bronchiectasis are also noted, particularly in the lingula and left lower lobe. There is luminal opacification of a dilated subsegmental bronchus in the left lower lobe (7:122), consistent with a mucoid impacted small airway. Postoperative changes of wedge resections involving the left lower lobe are again noted. Subpleural atelectasis or scarring appears unchanged since the prior exam. There are upper lobe predominant centrilobular and paraseptal emphysematous changes. Additional thin-walled cysts or bullae are noted in both lower lobes. An internally septated bulla in the posterior right lower lobe measures 61 x 29 mm. The lungs appear clear of consolidation or indeterminate nodule. Pleural space: No pleural effusion or focal pleural thickening is identified. There is no pneumothorax. Lower neck, lymph nodes, and mediastinum: The thyroid gland appears atrophic. No supraclavicular lymphadenopathy is identified. No region of intrathoracic lymphadenopathy has developed, including the axillae. Subcentimeter lymph nodes are scattered in the mediastinum including the bilateral paratracheal and subcarinal regions and the AP window. The esophagus appears nondilated. Heart, pericardium, and thoracic vessels: The thoracic aorta appears normal in course and caliber. There are atherosclerotic calcifications of the aorta and both the right and left coronary artery circulations. There are calcifications of the aortic valve leaflets, a finding which may be associated with valvular stenosis. The main and central pulmonary arteries are within normal limits of diameter. No specific cardiac chamber enlargement is identified. Papillary muscle calcifications are suspected in the lumen of the left ventricle. There is no pericardial effusion. Bones and soft tissues: The vertebral body heights appear symmetric and well-maintained. There are mild degenerative changes in the thoracic spine. No lytic or destructive osseous lesion is identified. There is symmetric bilateral gynecomastia. The soft tissues of the chest wall otherwise appear unremarkable. Upper abdomen: Visualized portions of the upper abdomen disclose no acute process. There is a 67 x 52 mm cortical cyst of the right kidney. Localizer images: Status post bilateral hip arthroplasties. No additional findings. DIVISION OF RADIOLOGY Provider, [facility] - 10/15/2024 * * *Final Report* * * DATE OF EXAM: Oct 15 2024 11:35AM [facility] 0541 - CT CHEST WO IVCON / PROCEDURE REASON: Malignant neoplasm of unspecified part of unspecified bronchus or lung (HCC) * * * * Physician Interpretation * * * * EXAMINATION: CHEST CT WITHOUT CONTRAST CLINICAL HISTORY: Malignant neoplasm of unspecified part of unspecified bronchus or lung (HCC). History of adenocarcinoma of the left lower lobe. Technique: Spiral CT acquisition of the chest from the thoracic inlet to the upper abdomen without contrast. MQ: CTCWO_6 CT Radiation dose: Integrated Dose-length product (DLP) for this visit = 177 mGy*cm CT Dose Reduction Employed: Automated exposure control(AEC) and iterative recon Comparison: Multiple prior CT scans of the chest including the most recent study 04/13/2024 RESULT: Limitations: None. Lines, tubes, and devices: None. Lung parenchyma and airways: The trachea and mainstem bronchi appear patent and devoid of endobronchial lesion. 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 There is mild diffuse bilateral bronchial wall thickening, consistent with chronic airways inflammation. Scattered areas of mild bronchiectasis are also noted, particularly in the lingula and left lower lobe. There is luminal opacification of a dilated subsegmental bronchus in the left lower lobe (7:122), consistent with a mucoid impacted small airway. Postoperative changes of wedge resections involving the left lower lobe are again noted. Subpleural atelectasis or scarring appears unchanged since the prior exam. There are upper lobe predominant centrilobular and paraseptal emphysematous changes. Additional thin-walled cysts or bullae are noted in both lower lobes. An internally septated bulla in the posterior right lower lobe measures 61 x 29 mm. The lungs appear clear of consolidation or indeterminate nodule. Pleural space: No pleural effusion or focal pleural thickening is identified. There is no pneumothorax. Lower neck, lymph nodes, and mediastinum: The thyroid gland appears atrophic. No supraclavicular lymphadenopathy is identified. No region of intrathoracic lymphadenopathy has developed, including the axillae. Subcentimeter lymph nodes are scattered in the mediastinum including the bilateral paratracheal and subcarinal regions and the AP window. The esophagus appears nondilated. Heart, pericardium, and thoracic vessels: The thoracic aorta appears normal in course and caliber. There are atherosclerotic calcifications of the aorta and both the right and left coronary artery circulations. There are calcifications of the aortic valve leaflets, a finding which may be associated with valvular stenosis. The main and central pulmonary arteries are within normal limits of diameter. No specific cardiac chamber enlargement is identified. Papillary muscle calcifications are suspected in the lumen of the left ventricle. There is no pericardial effusion. Bones and soft tissues: The vertebral body heights appear symmetric and well-maintained. There are mild degenerative changes in the thoracic spine. No lytic or destructive osseous lesion is identified. There is symmetric bilateral gynecomastia. The soft tissues of the chest wall otherwise appear unremarkable. Upper abdomen: Visualized portions of the upper abdomen disclose no acute process. There is a 67 x 52 mm cortical cyst of the right kidney. Localizer images: Status post bilateral hip arthroplasties. No additional findings. IMPRESSION IMPRESSION: Little change in CT appearance of the chest since 04/13/2024. No evidence of recurrent or metastatic disease is identified. Shape Carver: [facility] Transcribe Date/Time: Oct 15 2024 1:50P Dictated by : NEWTON MERCADO MD This examination was interpreted and the report reviewed and electronically signed by: NEWTON MERCADO MD on Oct 15 2024 2:12PM EST [facility] Radiology Study observation (narrative) [facility] CT Chest WO contrastOrdered By: [facility] Provider on 10-15-2024 [facility] CBC W/Diff, Automatedon 09-2 0-2024 Absolute Lymph 1.88 X10 3/uL Normal 0.83-4.51 [facility] Comment on above: Order Comment: Order Date: 06/18/24 Order Info: [id number] - CBCD Performed By: #### L [id number], L501.9520, L500.4100, L500.4050, L100.0100 #### [facility] [address] [place], [address] Absolute Neut 3.5 X10 3/uL Normal 2.0-7.7 [facility] Comment on above: Order Comment: Order Date: 06/18/24 Order Info: [id number]- - CBCD Performed By: #### L [id number], L501.9520, L500.4100, L500.4050, L100.0100 #### [facility] [address] [place], [address] Basophils/100 WBC (Bld) 0.8 % Normal 0-1 [facility] Comment on above: Order Comment: Order Date: 06/18/24 Order Info: 0184- - CBCD Performed By: #### L [id number], L501.9520, L500.4100, L500.4050, L100.0100 #### [facility] [address] [place], [address] Eosinophils/100 WBC (Bld) 5.8 % High 0-5 [facility] Comment on above: Order Comment: Order Date: 06/18/24 Order Info: [id number] - CBCD Performed By: #### L [id number], L501.9520, L500.4100, L500.4050, L100.0100 #### [facility] [address] [place], [address] Erythrocyte distribution width (RBC) [Ratio] 13.8 % Normal 11.6-14.6 [facility] Comment on above: Order Comment: Order Date: 06/18/24 Order Info: 0184-1 - CBCD Performed By: #### L [id number], L501.9520, L500.4100, L500.4050, L100.0100 #### [facility] [address] [place], [address] Hematocrit (Bld) [Volume fraction] 38.9 % Low 40-54 [facility] Comment on above: Order Comment: Order Date: 06/18/24 Order Info: 0184-1 - CBCD Performed By: #### L [id number], L501.9520, L500.4100, L500.4050, L100.0100 #### [facility] [address] [place], [address] Hemoglobin (Bld) [Mass/Vol] 12.4 g/dL Low 13.0-16.5 [facility] Comment on above: Order Comment: Order Date: 06/18/24 Order Info: 0184-1 - CBCD Performed By: #### L [id number], L501.9520, L500.4100, L500.4050, L100.0100 #### [facility] [address] [facility] [place], [address] IG% 0.600 Normal 0.0-0.9 [facility] Comment on above: Order Comment: Order Date: 06/18/24 Order Info: [id number] - CBCD Result Comment: IG% - Immature Granulocytes (promyelocytes, myelocytes and metamyelocytes) > 1% indicates that a LEFT SHIFT is Present. Performed By: #### L 501.9985, L501.9520, L500.4100, L500.4050, L100.0100 #### [facility] [address] [place], [address] Lymphocytes/100 WBC (Bld) 28.7 % Normal 19-41 [facility] Comment on above: Order Comment: Order Date: 06/18/24 Order Info: 0184-1 - CBCD Performed By: #### L 501.9985, L501.9520, L500.4100, L500.4050, L100.0100 #### [facility] [address] [place], [address] MCH (RBC) [Entitic mass] 29.2 pg Normal 27.0-32.0 [facility] Comment on above: Order Comment: Order Date: 06/18/24 Order Info: 018- - CBCD Performed By: #### L 501.9985, L501.9520, L500.4100, L500.4050, L100.0100 #### [facility] [address] [place], [address] MCHC (RBC) [Mass/Vol] 31.9 g/dL Low 32-36 [facility] Comment on above: Order Comment: Order Date: 06/18/24 Order Info: 018- - CBCD Performed By: #### L 501.9985, L501.9520, L500.4100, L500.4050, L100.0100 #### [facility] [address] [place], [address] MCV (RBC) [Entitic vol] 91.5 fL Normal 80-94 [facility] Comment on above: Order Comment: Order Date: 06/18/24 Order Info: 018- - CBCD Performed By: #### L 501.9985, L501.9520, L500.4100, L500.4050, L100.0100 #### [facility] [address] [place], [address] Monocytes/100 WBC (Bld) 10.2 % High 0-10 [facility] Comment on above: Order Comment: Order Date: 06/18/24 Order Info: 018- - CBCD Performed By: #### L 501.9985, L501.9520, L500.4100, L500.4050, L100.0100 #### [facility] [address] [place], [address] Neutrophils/100 WBC (Bld) 53.9 % Normal 47-70 [facility] Comment on above: Order Comment: Order Date: 06/18/24 Order Info: 0184-1 - CBCD Performed By: #### L 501.9985, L501.9520, L500.4100, L500.4050, L100.0100 #### [facility] [address] [place], [address] Nucleated RBC (Bld) [#/Vol] 0 10*3/uL Normal 0-5 [facility] Comment on above: Order Comment: Order Date: 06/18/24 Order Info: 0184-1 - CBCD Performed By: #### L 501.9985, L501.9520, L500.4100, L500.4050, L100.0100 #### [facility] [address] [place], [address] Platelet mean volume (Bld) [Entitic vol] 11.2 fL Normal 6.2-12.0 [facility] Comment on above: Order Comment: Order Date: 06/18/24 Order Info: 0184-1 - CBCD Performed By: #### L 501.9985, L501.9520, L500.4100, L500.4050, L100.0100 #### [facility] [address] [place], [address] Platelets (Bld) [#/Vol] 164 10*3/uL Normal 150-450 [facility] Comment on above: Order Comment: Order Date: 06/18/24 Order Info: 0184-1 - CBCD Performed By: #### L 501.9985, L501.9520, L500.4100, L500.4050, L100.0100 #### [facility] [address] [place], [address] RBC (Bld) [#/Vol] 4.25 10*6/uL Low 4.6-6.2 [facility] Comment on above: Order Comment: Order Date: 06/18/24 Order Info: 0184-1 - CBCD Performed By: #### L 501.9985, L501.9520, L500.4100, L500.4050, L100.0100 #### [facility] [address] [place], [address] RDW SD 46.0 fl High 35.1-43.9 [facility] Comment on above: Order Comment: Order Date: 06/18/24 Order Info: 0184-1 - CBCD Performed By: #### L 501.9985, L501.9520, L500.4100, L500.4050, L100.0100 #### [facility] [address] [place], [address] WBC (Bld) [#/Vol] 6.6 10*3/uL Normal 4.4-11.0 [facility] Comment on above: Order Comment: Order Date: 06/18/24 Order Info: 0184-1 - CBCD Performed By: #### L 501.9985, L501.9520, L500.4100, L500.4050, L100.0100 #### [facility] [address] [place], [address] Comprehensive Metabolic Prof scon 06-19-2024 Albumin [Mass/Vol] 3.5 g/dL Normal 3.2-5.0 [facility] Comment on above: Order Comment: Order Date: 06/18/24 Order Info: [id number] - CMP Order Info: [id number] - LIPID Order Info: [id number] - TSH Performed By: #### L 501.9985, L501.9520, L500.4100, L500.4050, L100.0100 #### [facility] [address] [place], [address] Albumin/Globulin [Mass ratio] 1.1 {ratio} Normal 0.9-2.4 [facility] Comment on above: Order Comment: Order Date: 06/18/24 Order Info: 0786- - CMP Order Info: [id number] - LIPID Order Info: [id number] - TSH Performed By: #### L 501.9985, L501.9520, L500.4100, L500.4050, L100.0100 #### [facility] [address] [place], [address] ALK P 57 U/L Normal 45-117 [facility] Comment on above: Order Comment: Order Date: 06/18/24 Order Info: 0786 - CMP Order Info: [id number] - LIPID Order Info: [id number] - TSH Performed By: #### L 501.9985, L501.9520, L500.4100, L500.4050, L100.0100 #### [facility] [address] [place], [address] ALT [Catalytic activity/Vol] 16 U/L Normal 16-61 [facility] Comment on above: Order Comment: Order Date: 06/18/24 Order Info: 0786 - CMP Order Info: [id number] - LIPID Order Info: [id number] - TSH Performed By: #### L 501.9985, L501.9520, L500.4100, L500.4050, L100.0100 #### [facility] [address] [place], [address] AST [Catalytic activity/Vol] 20 U/L Normal 15-37 [facility] Comment on above: Order Comment: Order Date: 06/18/24 Order Info: [id number] - CMP Order Info: [id number] - LIPID Order Info: [id number] - TSH Performed By: #### L 501.9985, L501.9520, L500.4100, L500.4050, L100.0100 #### [facility] [address] [place], [address] Bilirubin [Mass/Vol] 0.70 mg/dL Normal 0.20-1.00 [facility] Comment on above: Order Comment: Order Date: 06/18/24 Order Info: 0786- - CMP Order Info: - LIPID Order Info: [id number] - TSH Result Comment: For patients on eltrombopag therapy, use of Dimension Bricelyn TBIL is not recommended. Performed By: #### L 501.9985, L501.9520, L500.4100, L500.4050, L100.0100 #### [facility] [address] [place], [address] BUN/CRE 13.5 RATIO Normal 10-20 [facility] Comment on above: Order Comment: Order Date: 06/18/24 Order Info: 07 - CMP Order Info: [id number] - LIPID Order Info: [id number] - TSH Performed By: #### L 501.9985, L501.9520, L500.4100, L500.4050, L100.0100 #### [facility] [address] [place], [address] CA,Total 9.1 mg/dL Normal 8.5-10.1 [facility] Comment on above: Order Comment: Order Date: 06/18/24 Order Info: 0786- - CMP Order Info: - LIPID Order Info: [id number] - TSH Performed By: #### L 501.9985, L501.9520, L500.4100, L500.4050, L100.0100 #### [facility] [address] [place], [address] Chloride [Moles/Vol] 109 mmol/L High 98-107 [facility] Comment on above: Order Comment: Order Date: 06/18/24 Order Info: 0786- - CMP Order Info: [id number] - LIPID Order Info: [id number] - TSH Performed By: #### L 501.9985, L501.9520, L500.4100, L500.4050, L100.0100 #### [facility] [address] [place], [address] CO2 [Moles/Vol] 22.0 mmol/L Normal 21.0-32.0 [facility] Comment on above: Order Comment: Order Date: 06/18/24 Order Info: [id number] - CMP Order Info: [id number] - LIPID Order Info: [id number] - TSH Performed By: #### L 501.9985, L501.9520, L500.4100, L500.4050, L100.0100 #### [facility] [address] [place], [address] Creatinine [Mass/Vol] 1.11 mg/dL Normal 0.70-1.30 [facility] Comment on above: Order Comment: Order Date: 06/18/24 Order Info: [id number] - CMP Order Info: - LIPID Order Info: 3 - TSH Result Comment: The validity of the calculated GFR GFRAA in patients over 70 years has not been determined. Clinical correlation is essential. Performed By: #### L 501.9985, L501.9520, L500.4100, L500.4050, L100.0100 #### [facility] [address] [place], [address] EST GFR - AA 83 mL/min Normal >60 [facility] Comment on above: Order Comment: Order Date: 06/18/24 Order Info: 0786- - CMP Order Info: [id number] - LIPID Order Info: [id number] - TSH Result Comment: Afri can [place] GFR Calc Performed By: #### L 501.9985, L501.9520, L500.4100, L500.4050, L100.0100 #### [facility] [address] [place], [address] GAP 9 Normal 5-15 [facility] Comment on above: Order Comment: Order Date: 06/18/24 Order Info: 07- - CMP Order Info: [id number] - LIPID Order Info: [id number] - TSH Performed By: #### L [id number], L501.9520, L500.4100, L500.4050, L100.0100 #### [facility] [address] [place], [address] GFR/1.73 sq M.predicted among non-blacks MDRD (S/P/Bld) [Vol rate/Area] 68 mL/min/{1.73_m2} Normal >60 [facility] Comment on above: Order Comment: Order Date: 06/18/24 Order Info: 07 - CMP Order Info: - LIPID Order Info: [id number] - TSH Result Comment: Non- GFR Calc Performed By: #### L [id number], L501.9520, L500.4100, L500.4050, L100.0100 #### [facility] [address] [place], [address] Globulin (S) [Mass/Vol] 3.3 g/dL Normal 2.2-4.2 [facility] Comment on above: Order Comment: Order Date: 06/18/24 Order Info: [id number] - CMP Order Info: - LIPID Order Info: [id number] - TSH Performed By: #### L [id number], L501.9520, L500.4100, L500.4050, L100.0100 #### [facility] [address] [place], [address] Glucose [Mass/Vol] 83 mg/dL Normal 74-106 [facility] Comment on above: Order Comment: Order Date: 06/18/24 Order Info: [id number] - CMP Order Info: [id number] - LIPID Order Info: 3 - TSH Performed By: #### L 501.9985, L501.9520, L500.4100, L500.4050, L100.0100 #### [facility] [address] [place], [address] Potassium [Moles/Vol] 3.8 mmol/L Normal 3.5-5.1 [facility] Comment on above: Order Comment: Order Date: 06/18/24 Order Info: 0786- - CMP Order Info: [id number] - LIPID Order Info: [id number] - TSH Performed By: #### L 501.9985, L501.9520, L500.4100, L500.4050, L100.0100 #### [facility] [address] [place], [address] Sodium [Moles/Vol] 140 mmol/L Normal 136-145 [facility] Comment on above: Order Comment: Order Date: 06/18/24 Order Info: 07 - CMP Order Info: [id number] - LIPID Order Info: [id number] - TSH Performed By: #### L 501.9985, L501.9520, L500.4100, L500.4050, L100.0100 #### [facility] [address] [place], [address] T PROT 6.8 g/dL Normal 6.4-8.2 [facility] Comment on above: Order Comment: Order Date: 06/18/24 Order Info: 0786- - CMP Order Info: [id number] - LIPID Order Info: [id number] - TSH Performed By: #### L 501.9985, L501.9520, L500.4100, L500.4050, L100.0100 #### [facility] [address] [place], [address] Urea nitrogen [Mass/Vol] 15 mg/dL Normal 7-18 [facility] Comment on above: Order Comment: Order Date: 06/18/24 Order Info: 0786- - CMP Order Info: [id number] - LIPID Order Info: [id number] - TSH Performed By: #### L 501.9985, L501.9520, L500.4100, L500.4050, L100.0100 #### [facility] [address] [place], [address] Hemoglobin A1con 06-19-2024 HbA1c (Bld) [Mass fraction] 5.0 % Normal 3.8-5.6 [facility] Comment on above: Order Comment: Order Date: 06/18/24 Order Info: [id number] - A1C Result Comment: Norm al < 5.7 % Prediabetic 5.7 - 6.4 % Diabetic >or= 6.5 % Please note range changes. Performed By: #### L 501.9985, L501.9520, L500.4100, L500.4050, L100.0100 #### [facility] [address] [place], [address] Lipid Profileon 06-19-2024 Cholesterol [Mass/Vol] 83 mg/dL Normal 200 [facility] Comment on above: Order Comment: Order Date: 06/18/24 Order Info: [id number] - CMP Order Info: [id number] - LIPID Order Info: [id number] - TSH Result Comment: <200 mg/dL Desirable 200-240 mg/dL Borderline >240 mg/dL High Risk Performed By: #### L 501.9985, L501.9520, L500.4100, L500.4050, L100.0100 #### [facility] [address] [place], [address] Cholesterol in HDL [Mass/Vol] 34 mg/dL Low [facility] Comment on above: Order Comment: Order Date: 06/18/24 Order Info: [id number] - CMP Order Info: [id number] - LIPID Order Info: [id number] - TSH Result Comment: The drugs N-Acetylcysteine and Metamizole may falsely depress this assay. Reference Range HDL <40 mg/dL Low HDL Cholesterol HDL >or= 60 mg/dL High HDL Cholesterol Performed By: #### L [id number], L501.9520, L500.4100, L500.4050, L100.0100 #### [facility] [address] [place], [address] Cholesterol in LDL [Mass/Vol] 32 mg/dL Normal 0-130 [facility] Comment on above: Order Comment: Order Date: 06/18/24 Order Info: [id number] - CMP Order Info: [id number] - LIPID Order Info: [id number] - TSH Performed By: #### L 501.9985, L501.9520, L500.4100, L500.4050, L100.0100 #### [facility] [address] [place], [address] Cholesterol in VLDL [Mass/Vol] 17 mg/dL Normal 5-40 [facility] Comment on above: Order Comment: Order Date: 06/18/24 Order Info: [id number] - CMP Order Info: [id number] - LIPID Order Info: [id number] - TSH Performed By: #### L 501.9985, L501.9520, L500.4100, L500.4050, L100.0100 #### [facility] [address] [place], [address] Triglyceride [Mass/Vol] 85 mg/dL Normal [facility] Comment on above: Order Comment: Order Date: 06/18/24 Order Info: [id number] - CMP Order Info: [id number] - LIPID Order Info: [id number] - TSH Result Comment: The drugs N-Acetylcysteine and Metamizole may falsely depress this assay. Serum Triglycerides Reference Interval Normal <150 mg/dL Borderline high 150 - 199 mg/dL High 200 - 499 mg/dL Very High > or = 500 mg/dL Performed By: #### L [id number], L501.9520, L500.4100, L500.4050, L100.0100 #### [facility] [address] [place], [address] Thyroid Stim Hormone (TSH)on 06-19-2024 TSH 1.830 uIU/mL Normal 0.358-3.740 [facility] Comment on above: Order Comment: Order Date: 06/18/24 Order Info: [id number] - CMP Order Info: [id number] - LIPID Order Info: [id number] - TSH Performed By: #### L 501.9985, L501.9520, L500.4100, L500.4050, L100.0100 #### [facility] [address] [place], [address] CT CHEST WO IVCONon 04-13-20 CT CHEST WO IVCON * * *Final Report* * * DATE OF EXAM: Apr 13 2024 11:42AM [facility] 0541 - CT CHEST WO IVCON / PROCEDURE REASON: Malignant neoplasm of unspecified part of unspecified bronchus or lung (HCC) * * * * Physician Interpretation * * * * EXAMINATION: CHEST CT WITHOUT CONTRAST CLINICAL HISTORY: 78-year-old male with lung cancer. Technique: Spiral CT acquisition of the chest from the thoracic inlet to the upper abdomen without contrast. MQ: CTCWO_6 CT Radiation dose: Integrated Dose-length product (DLP) for this visit = 169 mGy*cm CT Dose Reduction Employed: Automated exposure control(AEC) and iterative recon Comparison: Chest CT 10/10/2023, 03/07/2023 and 10/11/2022. RESULT: Limitations: None. Lines, tubes, and devices: None. Lung parenchyma and airways: Stable postsurgical changes of left lower lobe wedge resection with no evidence of recurrent neoplasm. Diffuse bronchial wall thickening, mild bronchiectasis and scattered mucoid impaction seen in the left lower lobe and lingula. There is upper lobe predominant centrilobular and paraseptal emphysema. Stable cystic spaces in the lower lobes right greater than left. Stable 6 mm nodular opacity in the right lung base (7:163) and 3 mm right apical nodule (7:34). No new or enlarging lung nodules. Right posterior lateral tracheal diverticula. Additional tiny diverticula at the judith. Pleural space: No pleural effusion. No pleural thickening. Lower neck, lymph nodes, and mediastinum: The imaged thyroid gland is unremarkable. No lymphadenopathy in the supraclavicular, axillary, mediastinal, or hilar regions. Heart, pericardium, and thoracic vessels: There are atherosclerotic calcifications of the thoracic aorta. The thoracic aorta and main pulmonary artery are normal in caliber. Mild aortic valve leaflets calcifications. The cardiac chambers are normal in size. Coronary artery atherosclerotic calcifications are noted, although the study is not optimized for coronary assessment. No pericardial effusion or thickening. Bones and soft tissues: Degenerative changes of the thoracic spine. No destructive osseous lesion. The soft tissues of the chest wall are unremarkable except for bilateral gynecomastia. Upper abdomen: Partially visualized right renal cyst. The imaged upper abdomen is otherwise stable without acute abnormality. Localizer images: Bilateral hip prostheses. No additional findings. IMPRESSION: Stable postsurgical changes of left lower lobe wedge resection without evidence of recurrent neoplasm. No new or enlarging lung nodules or thoracic lymphadenopathy. Shape Carver: [employer] Transcribe Date/Time: Apr 13 2024 4:47P Dictated by : MONSE KING MD This examination was interpreted and the report reviewed and electronically signed by: MONSE KING MD on Apr 13 2024 4:55PM EST [id number] Normal [facility] CT Chest WO contraston 04-13 IMPRESSION: Stable postsurgical changes of left lower lobe wedge resection without evidence of recurrent neoplasm. No new or enlarging lung nodules or thoracic lymphadenopathy. Shape Carver: [employer] Transcribe Date/Time: Apr 13 2024 4:47P Dictated by : MONSE KING MD This examination was interpreted and the report reviewed and electronically signed by: MONSE KING MD on Apr 13 2024 4:55PM EST DIVISION OF RADIOLOGY * * *Final Report* * * DATE OF EXAM: Apr 13 2024 11:42AM [facility] 0541 - CT CHEST WO IVCON / PROCEDURE REASON: Malignant neoplasm of unspecified part of unspecified bronchus or lung (HCC) * * * * Physician Interpretation * * * * EXAMINATION: CHEST CT WITHOUT CONTRAST CLINICAL HISTORY: 78-year-old male with lung cancer. Technique: Spiral CT acquisition of the chest from the thoracic inlet to the upper abdomen without contrast. MQ: CTCWO_6 CT Radiation dose: Integrated Dose-length product (DLP) for this visit = 169 mGy*cm CT Dose Reduction Employed: Automated exposure control(AEC) and iterative recon Comparison: Chest CT 10/10/2023, 03/07/2023 and 10/11/2022. RESULT: Limitations: None. Lines, tubes, and devices: None. Lung parenchyma and airways: Stable postsurgical changes of left lower lobe wedge resection with no evidence of recurrent neoplasm. Diffuse bronchial wall thickening, mild bronchiectasis and scattered mucoid impaction seen in the left lower lobe and lingula. There is upper lobe predominant centrilobular and paraseptal emphysema. Stable cystic spaces in the lower lobes right greater than left. Stable 6 mm nodular opacity in the right lung base (7:163) and 3 mm right apical nodule (7:34). No new or enlarging lung nodules. Right posterior lateral tracheal diverticula. Additional tiny diverticula at the judith. Pleural space: No pleural effusion. No pleural thickening. Lower neck, lymph nodes, and mediastinum: The imaged thyroid gland is unremarkable. No lymphadenopathy in the supraclavicular, axillary, mediastinal, or hilar regions. Heart, pericardium, and thoracic vessels: There are atherosclerotic calcifications of the thoracic aorta. The thoracic aorta and main pulmonary artery are normal in caliber. Mild aortic valve leaflets calcifications. The cardiac chambers are normal in size. Coronary artery atherosclerotic calcifications are noted, although the study is not optimized for coronary assessment. No pericardial effusion or thickening. Bones and soft tissues: Degenerative changes of the thoracic spine. No destructive osseous lesion. The soft tissues of the chest wall are unremarkable except for bilateral gynecomastia. Upper abdomen: Partially visualized right renal cyst. The imaged upper abdomen is otherwise stable without acute abnormality. Localizer images: Bilateral hip prostheses. No additional findings. DIVISION OF RADIOLOGY Provider, [facility] - 04/13/2024 * * *Final Report* * * DATE OF EXAM: Apr 13 2024 11:42AM [facility] 0541 - CT CHEST WO IVCON / PROCEDURE REASON: Malignant neoplasm of unspecified part of unspecified bronchus or lung (HCC) * * * * Physician Interpretation * * * * EXAMINATION: CHEST CT WITHOUT CONTRAST CLINICAL HISTORY: 78-year-old male with lung cancer. Technique: Spiral CT acquisition of the chest from the thoracic inlet to the upper abdomen without contrast. MQ: CTCWO_6 CT Radiation dose: Integrated Dose-length product (DLP) for this visit = 169 mGy*cm CT Dose Reduction Employed: Automated exposure control(AEC) and iterative recon Comparison: Chest CT 10/10/2023, 03/07/2023 and 10/11/2022. RESULT: Limitations: None. Lines, tubes, and devices: None. Lung parenchyma and airways: Stable postsurgical changes of left lower lobe wedge resection with no evidence of recurrent neoplasm. Diffuse bronchial wall thickening, mild bronchiectasis and scattered mucoid impaction seen in the left lower lobe and lingula. There is upper lobe predominant centrilobular and paraseptal emphysema. Stable cystic spaces in the lower lobes right greater than left. Stable 6 mm nodular opacity in the right lung base (7:163) and 3 mm right apical nodule (7:34). No new or enlarging lung nodules. Right posterior lateral tracheal diverticula. Additional tiny diverticula at the judith. Pleural space: No pleural effusion. No pleural thickening. Lower neck, lymph nodes, and mediastinum: The imaged thyroid gland is unremarkable. No lymphadenopathy in the supraclavicular, axillary, mediastinal, or hilar regions. Heart, pericardium, and thoracic vessels: There are atherosclerotic calcifications of the thoracic aorta. The thoracic aorta and main pulmonary artery are normal in caliber. Mild aortic valve leaflets calcifications. The cardiac chambers are normal in size. Coronary artery atherosclerotic calcifications are noted, although the study is not optimized for coronary assessment. No pericardial effusion or thickening. Bones and soft tissues: Degenerative changes of the thoracic spine. No destructive osseous lesion. The soft tissues of the chest wall are unremarkable except for bilateral gynecomastia. Upper abdomen: Partially visualized right renal cyst. The imaged upper abdomen is otherwise stable without acute abnormality. Localizer images: Bilateral hip prostheses. No additional findings. IMPRESSION IMPRESSION: Stable postsurgical changes of left lower lobe wedge resection without evidence of recurrent neoplasm. No new or enlarging lung nodules or thoracic lymphadenopathy. Shape Carver: [facility] Transcribe Date/Time: Apr 13 2024 4:47P Dictated by : MONSE KING MD This examination was interpreted and the report reviewed and electronically signed by: MONSE KING MD on Apr 13 2024 4:55PM EST [facility] Radiology Study observation (narrative) [facility] CT Chest WO contrastOrdered By: [facility] Provider on 04-13-[address] [facility] [address] CHEST WO IVCONon 03-07-20 [facility] XR CHEST 2V FRONTAL/LATon [facility] Culture, urineOrdered By: Rahul Evans on 11-12-2022 Bacteria identified Cx Nom (U) Proteus mirabilis [facility] Culture, urineOrdered By: Rahul Evans on 10-28-2022 Bacteria identified Cx Nom (U) Citrobacter freundii [facility] XR CHEST 2V FRONTAL/LATon [facility] CT CHEST W IVCONon 3 [facility] NM CARDIAC PERF STRESS/EXERC ISEon 10-11-2022 [facility] SPIROMETRY BASELINE ONLYon 1 11-01-2021 DLCO (ml/min/mmHg) 17.51 ml/min/mmHg [facility] DLCO/VA (ml/min/mmHg/L) 2.79 ml/min/mmHg/L [facility] BFL64-01% PRE (L/S) 0.99 L/S [facility] FEV1 PRE (L) 2.34 L [facility] FEV1/FVC PRE (%) 52 % [facility] FVC PRE (L) 4.50 L [facility] PEF PRE (L/S) 6.02 L/S [facility] VA (L) 6.27 L [facility] LUNG DIFFUSION CAPACITY (SERENA O)on 08-30-2022 [facility] INR in Blood by Coagulation assayOrdered By: Dr. Mesa on 08-17-2022 INR Coag (Bld) [Relative time] 1.0 {INR} [facility] - CoagulationOrde red By: Dr. Mesa on 08-17-2022 aPTT Coag (Bld) [Time] 26.8 s 24.1-36.2 [facility] PT Coag (PPP) [Time] 13.0 s 11.7-14.9 [facility] Platelets bldOrdered By: Dr. Mesa on 08-17-2022 Platelets (Bld) [#/Vol] 165 10*3/uL 150-450 [facility] BRONCHOSCOPYon 06-27-2022 [facility] INR (POC)on 06-27-2022 INR Coag (PPP) [Relative time] 1.1 {INR} 0.8 - 1.2 [facility] Internal Quality Check Acceptable [facility] Absolute lymphocyte counton 05-15-2022 Lymphocytes Auto (Unsp spec) [#/Vol] 1.22 10*3/uL 0.83-4.51 [facility] Work Phone: Basophil percentageon 2021 Basophils/100 WBC (Bld) 0.4 % 0-1 [facility] Work Phone: Eosinophils/100 WBC (Bld) 2.1 % 0-5 [facility] Work Phone: Neutrophils (Bld) [#/Vol] 3.5 10*3/uL 2.0-7.7 [facility] Work Phone: Neutrophils/100 WBC (Bld) 66.2 % 47-70 [facility] Work Phone: WBC (Bld) [#/Vol] 5.3 10*3/uL 4.4-11.0 [facility] Work Phone: Blood erythrocytes count (nu mber/volume)on 05-15-2022 RBC (Bld) [#/Vol] 3.71 10*6/uL [facility]: Blood hemoglobin measurement (mass/volume)on 05-15-2022 Hemoglobin (Bld) [Mass/Vol] 10.7 g/dL 13.0-16.5 [facility] Work Phone: Blood lymphocytes/100 leukoc yteson 05-15-2022 Lymphocytes/100 WBC (Bld) 23.1 % 19-41 [facility] Work Phone: Blood monocytes/100 leukocyt eson 05-15-2022 Monocytes/100 WBC (Bld) 7.8 % 0-10 [facility] Work Phone: Blood platelet mean volumeon 05-15-2022 Platelet mean volume (Bld) [Entitic vol] 9.9 fL 6.2-12.0 [facility] Work Phone: Determination of erythrocyte mean corpuscular volume (MCV)on 05-15-2022 MCV (RBC) [Entitic vol] 87.9 fL 80-94 [facility] Work Phone: Hematocrit Auto (Bld) [Volum e fraction]on 05-15-2022 Hematocrit (Bld) [Volume fraction] 32.6 % 40-54 [facility] Work Phone: Laboratory - Hematology and Cell countson 05-15-2022 Erythrocyte distribution width (RBC) [Entitic vol] 47.5 fL 35.1-43.9 [facility] Work Phone: Erythrocyte distribution width (RBC) [Ratio] 14.7 % 11.6-14.6 [facility] Work Phone: Immature granulocytes/100 WBC (Bld) 0.400 % 0.0-0.9 [facility] Work Phone: Comment on above: IG% - Immature Granu locytes (promyelocytes, myelocytes and metamyelocytes) > 1% indicates that a LEFT SHIFT is Present. MCH (RBC) [Entitic mass] 28.8 pg 27.0-32.0 [facility] Work Phone: Nucleated RBC/100 WBC (Bld) [Ratio] 0 % 0-5 [facility] Work Phone: MCHC Auto (RBC) [Mass/Vol]on 05-15-2022 MCHC (RBC) [Mass/Vol] 32.8 g/dL 32-36 [facility] Work Phone: No Panel Informationon 05-15 Reactive Lymphocytes RARE [facility] Work Phone: Platelets bldon 05-15-2022 Platelets (Bld) [#/Vol] 220 10*3/uL 150-450 [facility] Work Phone: Basophil percentageon 2021 Basophil percentage 4.1 mg/dL 2.5-4.9 [facility] [place] [place] Work Phone: Chloride [Moles/Vol] 111 mmol/L 98-107 [facility] Work Phone: Glucose [Mass/Vol] 82 mg/dL 74-106 [facility] [place] [place] Work Phone: Potassium [Moles/Vol] 3.8 mmol/L 3.5-5.1 [facility] Work Phone: Sodium [Moles/Vol] 139 mmol/L 136-145 [facility] Work Phone: Laboratory - Chemistry and C hemistry - challengeon 05-14-2022 CO2 [Moles/Vol] 21.0 mmol/L 21.0-32.0 [facility] Work Phone: Magnesium [Mass/Vol] 2.1 mg/dL 1.6-2.6 [facility] Work Phone: Urea nitrogen/Creatinine [Mass ratio] 14.8 mg/mg 10-20 [facility] Work Phone: No Panel Informationon 05-14 Estimated Creatinine Clearance Calc 58.06 ml/min [facility] Work Phone: Estimated GFR (MDRD) Amer 86 mL/min >60 [facility] Work Phone: Comment on above: GFR Calc Estimated GFR (MDRD) Non-Af Amer 71 mL/min >60 [facility] Work Phone: Comment on above: Non- GFR Calc Serum or plasma calcium tejas urement (mass/volume)on 05-14-2022 Calcium [Mass/Vol] 8.3 mg/dL 8.5-10.1 [facility] Work Phone: Serum or plasma creatinine m easurement (mass/volume)on 05-14-2022 Creatinine [Mass/Vol] 1.08 mg/dL 0.70-1.30 [facility] Work Phone: Comment on above: The validity of the calculated GFR & GFRAA in patients over 70 years has not been determined. Clinical correlation is essential. Serum or plasma urea nitroge n measurement (mass/volume)on 05-14-2022 Urea nitrogen [Mass/Vol] 16 mg/dL 7-18 [facility] Work Phone: Thin prep Papanicolaou smear with manual screeningon 05-14-2022 Thin prep Papanicolaou smear with manual screening 7 5-15 [facility] Work Phone: Absolute lymphocyte counton 05-13-2022 Lymphocytes Auto (Unsp spec) [#/Vol] 1.12 10*3/uL 0.83-4.51 [facility] Work Phone: Basophil percentageon 2021 Lactate [Moles/Vol] 1.1 mmol/L 0.4-2.0 [facility] Work Phone: Basophil percentage 10-25 SEEN /hpf 0-5 [facility] Work Phone: Basophil percentage 1.8 mg/dL 2.5-4.9 [facility] Work Phone: [phone] Basophils/100 WBC (Bld) 0.1 % 0-1 [facility] Work Phone: Bilirubin [Mass/Vol] 0.50 mg/dL 0.20-1.00 [facility] Work Phone: Comment on above: For patients on eltr ombopag therapy, use of Dimension Bricelyn TBIL is not recommended. Chloride [Moles/Vol] 106 mmol/L 98-107 [facility] Work Phone: Eosinophils/100 WBC (Bld) 0.0 % 0-5 [facility] Work Phone: [phone] Glucose [Mass/Vol] 142 mg/dL 74-106 [facility] Work Phone: Comment on above: Fasting Glucose resu lt greater than or equal to 126 mg/dL suggests DIABETES MELLITUS per A.D.A. criteria. Neutrophils (Bld) [#/Vol] 12.3 10*3/uL 2.0-7.7 [facility] Work Phone: [phone] Neutrophils/100 WBC (Bld) 84.0 % 47-70 [facility] Work Phone: [phone] Potassium [Moles/Vol] 3.3 mmol/L 3.5-5.1 [facility] Work Phone: Protein [Mass/Vol] 6.6 g/dL 6.4-8.2 [facility] Work Phone: Sodium [Moles/Vol] 136 mmol/L 136-145 [facility] Work Phone: WBC (Bld) [#/Vol] 14.6 10*3/uL 4.4-11.0 [facility] Work Phone: Bilirubin Test strip Ql (U)o n 05-13-2022 Bilirubin Ql (U) Negative Negative [facility] Work Phone: Blood erythrocytes count (nu mber/volume)on 05-13-2022 RBC (Bld) [#/Vol] 3.44 10*6/uL 4.6-6.2 [facility] Work Phone: Blood hemoglobin measurement (mass/volume)on 05-13-2022 Hemoglobin (Bld) [Mass/Vol] 9.9 g/dL 13.0-16.5 [facility] Work Phone: Blood lymphocytes/100 leukoc yteson 05-13-2022 Lymphocytes/100 WBC (Bld) 7.7 % 19-41 [facility] Work Phone: Blood monocytes/100 leukocyt eson 05-13-2022 Monocytes/100 WBC (Bld) 6.5 % 0-10 [facility] Work Phone: Blood platelet mean volumeon 05-13-2022 Platelet mean volume (Bld) [Entitic vol] 10.5 fL 6.2-12.0 [facility] Work Phone: Determination of erythrocyte mean corpuscular volume (MCV)on 05-13-2022 MCV (RBC) [Entitic vol] 88.4 fL 80-94 [facility] Work Phone: Hematocrit Auto (Bld) [Volum e fraction]on 05-13-2022 Hematocrit (Bld) [Volume fraction] 30.4 % 40-54 [facility] Work Phone: INR in Blood by Coagulation assayon 05-13-2022 INR Coag (Bld) [Relative time] 2.8 {INR} [facility] Work Phone: Ketones Test strip Ql (U)on 05-13-2022 Ketones Ql (U) 15 mg/dl Negative [facility] Work Phone: Laboratory - Chemistry and C hemistry - challengeon 05-13-2022 ALP [Catalytic activity/Vol] 67 U/L 45-117 [facility] [facility] Work Phone: ALT [Catalytic activity/Vol] 27 U/L 16-61 [facility] Work Phone: CO2 [Moles/Vol] 21.0 mmol/L 21.0-32.0 [facility] Work Phone: Globulin (S) [Mass/Vol] 4.5 g/dL 2.2-4.2 [facility] Work Phone: Lipase [Catalytic activity/Vol] 240 U/L 73-393 [facility] Work Phone: Magnesium [Mass/Vol] 1.9 mg/dL 1.6-2.6 [facility] Work Phone: Urea nitrogen/Creatinine [Mass ratio] 13.5 mg/mg 10-20 [facility] Work Phone: Laboratory - Coagulationon 0 05-13-2022 PT Coag (PPP) [Time] 29.6 s 11.7-14.9 [facility] Work Phone: Laboratory - Hematology and Cell countson 05-13-2022 Erythrocyte distribution width (RBC) [Entitic vol] 47.0 fL 35.1-43.9 [facility] Work Phone: Erythrocyte distribution width (RBC) [Ratio] 14.7 % 11.6-14.6 [facility] Work Phone: Immature granulocytes/100 WBC (Bld) 1.700 % 0.0-0.9 [facility] Work Phone: Comment on above: IG% - Immature Granu locytes (promyelocytes, myelocytes and metamyelocytes) > 1% indicates that a LEFT SHIFT is Present. MCH (RBC) [Entitic mass] 28.8 pg 27.0-32.0 [facility] Work Phone: Nucleated RBC/100 WBC (Bld) [Ratio] 0 % 0-5 [facility] Work Phone: MCHC Auto (RBC) [Mass/Vol]on 05-13-2022 MCHC (RBC) [Mass/Vol] 32.6 g/dL 32-36 [facility] Work Phone: Mucus LM Ql (Urine sed)on Mucus Ql (Urine sed) 0 SEEN /hpf [facility] Work Phone: Nitrite Test strip Ql (U)on 05-13-2022 Nitrite Ql (U) Positive Negative [facility] Work Phone: No Panel Informationon 05-13 Estimated Creatinine Clearance Calc 44.47 ml/min [facility] Work Phone: Estimated GFR (MDRD) Amer 63 mL/min >60 [facility] Work Phone: Comment on above: GFR Calc Estimated GFR (MDRD) Non-Af Amer 52 mL/min >60 [facility] Work Phone: Comment on above: Non- GFR Calc Platelets bldon 05-13-2022 Platelets (Bld) [#/Vol] 261 10*3/uL 150-450 [facility] Work Phone: Protein Test strip Ql (U)on 05-13-2022 Protein Ql (U) 30 mg/dl Negative [facility] Work Phone: Serum or plasma albumin tejas urement (mass/volume)on 05-13-2022 Albumin [Mass/Vol] 2.1 g/dL 3.2-5.0 [facility] Work Phone: Serum or plasma albumin/glob ulin mass ratioon 05-13-2022 Albumin/Globulin [Mass ratio] 0.5 {ratio} 0.9-2.4 [facility] Work Phone: Serum or plasma calcium tejas urement (mass/volume)on 05-13-2022 Calcium [Mass/Vol] 8.8 mg/dL 8.5-10.1 [facility] Work Phone: Serum or plasma creatinine m easurement (mass/volume)on 05-13-2022 Creatinine [Mass/Vol] 1.41 mg/dL 0.70-1.30 [facility] [place] [place] Work Phone: Comment on above: The validity of the calculated GFR & GFRAA in patients over 70 years has not been determined. Clinical correlation is essential. Serum or plasma urea nitroge n measurement (mass/volume)on 05-13-2022 Urea nitrogen [Mass/Vol] 19 mg/dL 7-18 [facility] Work Phone: Squamous epithelial cells de tection in urine sediment by light microscopyon 05-13-2022 Epithelial cells.squamous LM Ql (Urine sed) 0 SEEN /hpf 0-5 [facility] Work Phone: Thin prep Papanicolaou smear with manual screeningon 05-13-2022 Thin prep Papanicolaou smear with manual screening 22 U/L 15-37 [facility] Work Phone: Thin prep Papanicolaou smear with manual screening 9 5-15 [facility] Work Phone: Urine blood detectionon 04-30 RBC Ql (U) 150 /ul Negative [facility] Work Phone: RBC Ql (U) 0-5 SEEN /hpf 0-5 [facility] Work Phone: Urine clarityon 05-13-2022 Clarity (U) Clear Clear [facility] Work Phone: Urine color determinationon 05-13-2022 Color (U) Yellow Yellow [facility] Work Phone: Urine glucose detectionon Glucose Ql (U) Normal mg/dl Normal [facility] Work Phone: Urine leukocyte esterase det ection by dipstickon 05-13-2022 Leukocyte esterase Test strip Ql (U) 100 /ul Negative [facility] Work Phone: Urine pHon 05-13-2022 pH (U) 8.0 [pH] 5.0 - 8.0 [facility] Work Phone: Urine sediment bacteria coun t by microscopy (number/high power field)on 05-13-2022 Bacteria LM.HPF (Urine sed) [#/Area] 3 /[HPF] None Seen [facility] Work Phone: Urine specific gravity measu rementon 05-13-2022 Specific gravity (U) [Rel density] 1.010 1.002-1.030 [facility] Work Phone: Urobilinogen Auto test strip Ql (U)on 05-13-2022 Urobilinogen Ql (U) Normal mg/dl Normal [facility] Work Phone: CNPNon 02-02-2022 CNPN Telephone (MEPRAD) JAVIER JOHNSON ( ) 1945 Date Time Provider Department 02/02/22 MELLY MICHELE During your visit today, we recorded the following information about you: Melly Michele MD 02/02/2022 12:23 PM Signed Called from damien goodwin. Patient still having pain and concerned about a hernia. We will order an MRI of his abdomen and discuss with hernia specialists after MRI obtained Please call and schedule for an office visit. Please contact the patient and have him schedule an MRI and then follow up in my office. Thanks Carlos Magallon LPN 02/02/2022 3:04 PM Signed Called patient spoke to updated and was forwarded to [facility] Tigist to be scheduled for MRI and office appointment Kristal Magallon LPN 02/02/2022 3:37 PM Signed Patient wants to be scheduled at [facility] to see if can get in for MRI sooner. Faxed order to [facility] Patient to call and schedule follow up visit with Dr Michele after MRI. Spoke with scheduling at [facility], they will call patient to schedule MRI after insurance approval. 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 No IV access, insert saline lock prior to the beginning of sedation, infusion, injection of imaging exam. Discontinue saline lock post exam. If Pt. has a central line or IVAD, may access for administration according to line specific nursing protocol. Once exam is complete flush line and de-access according to line specific nursing protocol in the MR contrast administration guidelines link.Disp: 1 EachRfl: 0 Prescriptions as of 02/02/2022 - iv contrast (will be provided with radiology test) MRI ABD/PEL Inject, intravenously, once for 1 dose. No IV access, insert saline lock prior to the beginning of sedation, infusion, injection of imaging exam. Discontinue saline lock post exam. If Pt. has a central line or IVAD, may access for administration according to line specific nursing protocol. Once exam is complete flush line and de-access according to line specific nursing protocol in the MR contrast administration guidelines link. - LISINOPRIL ORAL Take by mouth. - amoxicillin-clavulanic acid (AUGMENTIN) 875-125 mg per tablet Take 1 tablet by mouth twice daily. - levoFLOXacin (LEVAQUIN) 500 mg tablet Take 500 mg by mouth once daily. - POTASSIUM ORAL Take by mouth once daily. 20 BID - acetaminophen (TYLENOL) 325 mg tablet Take 1-2 tablets by mouth every 6 hours as needed for Pain. - ascorbic acid, vitamin C, (VITAMIN C) 500 mg tablet Take 500 mg by mouth twice daily. - warfarin (COUMADIN) 6 mg tablet Take 6 mg by mouth daily as directed. - atorvastatin (LIPITOR) 20 mg tablet Take 20 mg by mouth once daily. - metoprolol succinate ER (TOPROL XL) 25 mg 24 hr tablet Take 25 mg by mouth once daily. - MULTI-VITAMIN ORAL Take 1 tablet by mouth once daily. 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] 07/20/[address] (HCC) [Z93.3] 07/20/2019 Atrial fibrillation (HCC) [I48.91] 07/20/2019 Essential hypertension [I10] 07/20/2019 Chronic anticoagulation [Z79.01] 07/20/2019 History of CVA (cerebrovascular accident) [Z86.*07/20/2019 Hypomagnesemia [E83.42] 07/21/2019 07/21/2019 Nicotine use disorder, F17.2 [F17.200] 07/21/2019 Hypophosphatemia [E83.39] 07/22/2019 07/28/2019 Hypokalemia [E87.6] 07/22/2019 07/24/2019 Postoperative ileus (HCC) [K91.89, K56.7] 07/22/2019 07/31/2019 Hypoalbuminemia [E88.09] 07/29/2019 Hyponatremia [E87.1] 07/31/2019 07/31/2019 Prescriptions ordered this encounter Disp Refills Start End IV CONTRAST (RADIOLOGY PROCEDURE) 1 Ea* 0 02/02/2022 02/03/2022 Class: In Office Sig: MRI ABD/PEL Inject, intravenously, once for 1 dose. No IV access, insert saline lock prior to the beginning of sedation, infusion, injection of imaging exam. Discontinue saline lock post exam. If Pt. has a central line or IVAD, may access for administration according (more content not included)... Normal [facility] Absolute lymphocyte counton 01-31-2022 Lymphocytes Auto (Unsp spec) [#/Vol] 2.06 10*3/uL 0.83-4.51 [facility] Work Phone: Basophil percentageon 2021 Basophils/100 WBC (Bld) 0.4 % 0-1 [facility] Work Phone: Eosinophils/100 WBC (Bld) 2.6 % 0-5 [facility] Work Phone: Neutrophils (Bld) [#/Vol] 5.9 10*3/uL 2.0-7.7 [facility] Work Phone: Neutrophils/100 WBC (Bld) 65.6 % 47-70 [facility] Work Phone: WBC (Bld) [#/Vol] 9.0 10*3/uL 4.4-11.0 [facility] Work Phone: Blood erythrocytes count (nu mber/volume)on 01-31-2022 RBC (Bld) [#/Vol] 4.60 10*6/uL 4.6-6.2 [facility] Work Phone: Blood hemoglobin measurement (mass/volume)on 01-31-2022 Hemoglobin (Bld) [Mass/Vol] 13.6 g/dL 13.0-16.5 [facility] Work Phone: Blood lymphocytes/100 leukoc yteson 01-31-2022 Lymphocytes/100 WBC (Bld) 22.9 % 19-41 [facility] Work Phone: Blood monocytes/100 leukocyt eson 01-31-2022 Monocytes/100 WBC (Bld) 8.2 % 0-10 [facility] Work Phone: Blood platelet mean volumeon 01-31-2022 Platelet mean volume (Bld) [Entitic vol] 11.2 fL 6.2-12.0 [facility] Work Phone: Determination of erythrocyte mean corpuscular volume (MCV)on 01-31-2022 MCV (RBC) [Entitic vol] 88.9 fL 80-94 [facility] Work Phone: Erythrocyte sedimentation ra isabelle 01-31-2022 ESR (Bld) [Velocity] 53 mm/h 0-20 [facility] Work Phone: Hematocrit Auto (Bld) [Volum e fraction]on 01-31-2022 Hematocrit (Bld) [Volume fraction] 40.9 % 40-54 [facility] Work Phone: Laboratory - Hematology and Cell countson 01-31-2022 Erythrocyte distribution width (RBC) [Entitic vol] 45.1 fL 35.1-43.9 [facility] Work Phone: Erythrocyte distribution width (RBC) [Ratio] 14.0 % 11.6-14.6 [facility] Work Phone: Immature granulocytes/100 WBC (Bld) 0.300 % 0.0-0.9 [facility] Work Phone: Comment on above: IG% - Immature Granu locytes (promyelocytes, myelocytes and metamyelocytes) > 1% indicates that a LEFT SHIFT is Present. MCH (RBC) [Entitic mass] 29.6 pg 27.0-32.0 [facility] Work Phone: Nucleated RBC/100 WBC (Bld) [Ratio] 0 % 0-5 [facility] Work Phone: MCHC Auto (RBC) [Mass/Vol]on 01-31-2022 MCHC (RBC) [Mass/Vol] 33.3 g/dL 32-36 [facility] Work Phone: Platelets bldon 05-04-2022 Platelets (Bld) [#/Vol] 173 10*3/uL 150-450 [facility] Work Phone: Serum or plasma C reactive p rotein measurement (mass/volume)on 01-31-2022 CRP [Mass/Vol] 16.30 mg/L 0.0-3.0 [facility] Work Phone: Comment on above: C-Reactive Protein ( CRP) provides useful information for thediagnosis, therapy and monitoring of inflammatory processesand associated diseases. For the evaluation of Relative Riskfor Cardiovascular Disease, a High Sensitivity CRP (HSCRP)should be ordered. Basophil percentageon 2021 Bilirubin [Mass/Vol] 0.50 mg/dL 0.20-1.00 [facility] Work Phone: Comment on above: For patients on eltr ombopag therapy, use of Dimension Bricelyn TBIL is not recommended. Chloride [Moles/Vol] 107 mmol/L 98-107 [facility] Work Phone: Glucose [Mass/Vol] 86 mg/dL 74-106 [facility] Work Phone: Potassium [Moles/Vol] 3.6 mmol/L 3.5-5.1 [facility] Work Phone: Protein [Mass/Vol] 7.1 g/dL 6.4-8.2 [facility] Work Phone: Sodium [Moles/Vol] 139 mmol/L 136-145 [facility] Work Phone: WBC (Bld) [#/Vol] 8.5 10*3/uL 4.4-11.0 [facility] Work Phone: Blood erythrocytes count (nu mber/volume)on 01-15-2022 RBC (Bld) [#/Vol] 4.64 10*6/uL 4.6-6.2 [facility] Work Phone: Blood hemoglobin measurement (mass/volume)on 01-15-2022 Hemoglobin (Bld) [Mass/Vol] 13.6 g/dL 13.0-16.5 [facility] Work Phone: Blood platelet mean volumeon 01-15-2022 Platelet mean volume (Bld) [Entitic vol] 11.4 fL 6.2-12.0 [facility] Work Phone: Determination of erythrocyte mean corpuscular volume (MCV)on 01-15-2022 MCV (RBC) [Entitic vol] 88.8 fL 80-94 [facility] Work Phone: Erythrocyte sedimentation ra isabelle 01-15-2022 ESR (Bld) [Velocity] 27 mm/h 0-20 [facility] Work Phone: Comment on above: Previous reported re sult: 65 mm/hrEdited by: JUNG on 01/15/22:6110 AMENDED REPORT 01/15/22 036 SED RATE previously reported as: 65 H mm/hr Hematocrit Auto (Bld) [Volum e fraction]on 01-15-2022 Hematocrit (Bld) [Volume fraction] 41.2 % 40-54 [facility] Work Phone: Laboratory - Chemistry and C hemistry - challengeon 01-15-2022 ALP [Catalytic activity/Vol] 58 U/L 45-117 [facility] Work Phone: ALT [Catalytic activity/Vol] 19 U/L 16-61 [facility] Work Phone: CO2 [Moles/Vol] 26.0 mmol/L 21.0-32.0 [facility] Work Phone: Globulin (S) [Mass/Vol] 4.2 g/dL 2.2-4.2 [facility] Work Phone: Urea nitrogen/Creatinine [Mass ratio] 12.1 mg/mg 10-20 [facility] Work Phone: Laboratory - Hematology and Cell countson 01-15-2022 Erythrocyte distribution width (RBC) [Entitic vol] 44.3 fL 35.1-43.9 [facility] Work Phone: Erythrocyte distribution width (RBC) [Ratio] 13.9 % 11.6-14.6 [facility] Work Phone: MCH (RBC) [Entitic mass] 29.3 pg 27.0-32.0 [facility] Work Phone: MCHC Auto (RBC) [Mass/Vol]on 01-15-2022 MCHC (RBC) [Mass/Vol] 33.0 g/dL 32-36 [facility] Work Phone: No Panel Informationon 01-15 Estimated GFR (MDRD) Amer 87 mL/min >60 [facility] Work Phone: Comment on above: GFR Calc Estimated GFR (MDRD) Non-Af Amer 72 mL/min >60 [facility] Work Phone: Comment on above: Non- GFR Calc Platelets bldon 01-15-2022 Platelets (Bld) [#/Vol] 166 10*3/uL 150-450 [facility] Work Phone: Serum or plasma C reactive p rotein measurement (mass/volume)on 01-15-2022 CRP [Mass/Vol] 45.10 mg/L 0.0-3.0 [facility] Work Phone: Comment on above: C-Reactive Protein ( CRP) provides useful information for thediagnosis, therapy and monitoring of inflammatory processesand associated diseases. For the evaluation of Relative Riskfor Cardiovascular Disease, a High Sensitivity CRP (HSCRP)should be ordered. Serum or plasma albumin tejas urement (mass/volume)on 01-15-2022 Albumin [Mass/Vol] 2.9 g/dL 3.2-5.0 [facility] Work Phone: Serum or plasma albumin/glob ulin mass ratioon 01-15-2022 Albumin/Globulin [Mass ratio] 0.7 {ratio} 0.9-2.4 [facility] Work Phone: Serum or plasma calcium tejas urement (mass/volume)on 01-15-2022 Calcium [Mass/Vol] 8.9 mg/dL 8.5-10.1 [facility] Work Phone: Serum or plasma creatinine m easurement (mass/volume)on 01-15-2022 Creatinine [Mass/Vol] 1.07 mg/dL 0.70-1.30 [facility] Work Phone: Comment on above: The validity of the calculated GFR & GFRAA in patients over 70 years has not been determined. Clinical correlation is essential. Serum or plasma urea nitroge n measurement (mass/volume)on 01-15-2022 Urea nitrogen [Mass/Vol] 13 mg/dL - [facility] Work Phone: Thin prep Papanicolaou smear with manual screeningon 01-15-2022 Thin prep Papanicolaou smear with manual screening 15 U/L 15-37 [facility] Work Phone: Thin prep Papanicolaou smear with manual screening 6 5-15 [facility] Work Phone: Whole blood hemoglobin A1c/t otal hemoglobin ratio (mass fraction)on 01-15-2022 HbA1c (Bld) [Mass fraction] 5.3 % 3.8-5.6 [facility] Work Phone: Comment on above: Normal < 5.7 % Predi abetic 5.7 - 6.4 % Diabetic >or= 6.5 % Please note range changes. URINALYSISon 02-27-2019 AMORPH SEDIMENT 1+ Normal [facility] Comment on above: Performed By: #### U A #### [facility] [address] [place] [address] Bacteria LM.HPF (Urine sed) [#/Area] 2+ Abnormal [facility] Comment on above: Performed By: #### U A #### [facility] [address] [place] [address] Bilirubin [Mass/Vol] Negative Normal NEGATIVE [facility] Comment on above: Performed By: #### U A #### [facility] [address] [place] [address] BLOOD 2+ Abnormal NEGATIVE [facility] Comment on above: Performed By: #### U A #### [facility] [address] [place] [address] Clarity (U) SL CLOUDY Normal CLEAR [facility] Comment on above: Performed By: #### U A #### [facility] [address] [place] [address] Color (U) YELLOW Normal YELLOW [facility] Comment on above: Performed By: #### U A #### [facility] [address] [place] [address] Epithelial cells LM.HPF (Urine sed) [#/Area] 5-10 Normal [facility] Comment on above: Performed By: #### U A #### [facility] [address] [place] [address] Glucose [Mass/Vol] Negative Normal NEGATIVE [facility] Comment on above: Performed By: #### U A #### [facility] [address] [place] [address] KETONE Negative Normal NEGATIVE [facility] Comment on above: Performed By: #### U A #### [facility] [address] [place] [address] LEUKO ESTERASE 2+ Abnormal NEGATIVE [facility] Comment on above: Performed By: #### U A #### [facility] [address] [place] [address] MUCOUS 1+ Normal [facility] Comment on above: Performed By: #### U A #### [facility] [address] [place] [address] Nitrite Ql (U) Negative Normal NEGATIVE [facility] Comment on above: Performed By: #### U A #### [facility] [address] [place] [address] pH (Bld) 6.5 Normal 5.0-9.0 [facility] Comment on above: Performed By: #### U A #### [facility] [address] [place] [address] Protein (U) [Mass/Vol] Negative Normal NEGATIVE [facility] Comment on above: Performed By: #### U A #### [facility] [address] [place] [address] RBC (U) [#/Vol] 16-20 Normal 0-2 [facility] Comment on above: Performed By: #### U A #### [facility] [address] [place] [address] Specific gravity (U) [Rel density] <= 1.005 Normal 1.005-1.030 [facility] Comment on above: Performed By: #### U A #### [facility] [address] [place] [address] Urobilinogen Qn (U) 0.2 E.U./dl Normal 0.2-1.0 [facility] Comment on above: Performed By: #### U A #### [facility] [address] [place] [address] WBC (Bld) [#/Vol] 51-100 Normal 0-5 [facility] Comment on above: Performed By: #### U A #### [facility] [address] [place] [address] URINE CULTUREon 02-27-2019 Bacteria identified Cx Nom (U) URINE CULTURE #1: HEAVY GNB COLONY COUNT 75,000 MORGANELLA MORGANII (ORGANISM ID: [id number]) - Isolated ORGANISM ID: [id number] ANTIBIOTIC INTERPRETATION GLENN STATUS AMPICILLIN/SULBACTAM R >16/8 F AMIKACIN S <16 F AMPICILLIN R >16 F AZTREONAM S <4 F CEFTRIAXONE S <8 F CEFTAZIDIME R >16 F CEFOTAXIME I 16 F CEFOXITIN I 16 F CEFAZOLIN R >16 F CIPROFLOXICIN S <1 F CEFEPIME S <4 F CEFUROXIME R >16 F ERTAPENEM S <1 F NITROFURANTOIN I 64 F GENTAMICIN S <4 F LEVOFLOXACIN S <2 F MEROPENEM S <1 F PIPERACILLIN/TAZOBACTAM S <16 F TRIMETHOPRIM/SULFAMETHOXAZO LE R >2/38 F TETRACYCLINE R >8 F TOBRAMYCIN S <4 F Normal [facility] Comment on above: Performed By: #### U C #### [facility] [address] [place] [address] URINE CULTUREon 12-22-2018 Bacteria identified Cx Nom (U) URINE CULTURE #1: HEAVY GNB COLONY COUNT >100,000 PROVIDENCIA STUARTII (ORGANISM ID: [id number]) - Isolated ORGANISM ID: 2.1 ANTIBIOTIC INTERPRETATION GLENN STATUS AMPICILLIN/SULBACTAM S <8/4 F AMIKACIN S <16 F AMPICILLIN R 16 F AZTREONAM S <4 F CEFTRIAXONE S <8 F CEFTAZIDIME S <1 F CEFOTAXIME S <2 F CEFOXITIN S <8 F CEFAZOLIN R >16 F CIPROFLOXICIN S <1 F CEFEPIME S <4 F CEFUROXIME S <4 F ERTAPENEM S <1 F NITROFURANTOIN R >64 F GENTAMICIN S <4 F LEVOFLOXACIN S <2 F MEROPENEM S <1 F PIPERACILLIN/TAZOBACTAM S <16 F TRIMETHOPRIM/SULFAMETHOXAZO LE S <2/38 F TETRACYCLINE R >8 F TOBRAMYCIN S <4 F [facility] Comment on above: Performed By: #### U C #### [facility] [address] [place] [address] FISTULAon 11-03-2018 FISTULA ------- RUN DATE: 11/04/18 [facility] LIVE PAGE 1 RUN TIME: 1223 Specimen Inquiry RUN USER: INTERFACE [id number]: [facility] – [place] U #: [id number] AGE/SX: 73/M ROOM: RE11/03/[address]: VICKIE TREJO,MICHELLE MARTINEZ : 49 BED: DIS: STATUS: [facility] TLOC: SPEC #: [id number] RECD: 11/03/18 STATUS: [facility] #: [id number] BRIAN: 11/03/18- SUBM DR: MICHELLE JOHNSTON MD ENTERED: 11/03/18 SP TYPE: FISTULA OTHR DR: ELIZABETH PACHECO MD ORDERED: LEVEL 3 ([id number]), K COCKTAIL IHC, SURGICAL SPEC, ADD IHC/3 COMMENTS: REFERRING MEDICAL DOCTOR: RERE SURGEON: REINA # OF CONTAINERS 1 TISSUE SUBMITTED: FISTULA TRACK OF ABDOMEN PROCEDURE: WOUND DEBRIDEMENT OF ABD PRELIMINARY DIAGNOSIS: ABD WOUND FINAL DIAGNOSIS (Based on gross and microscopic examination) Abdomen, wound debridement: Fragment of inflamed and fibrotic soft tissue consistent with an abdominal wound. (See diagnostic note.) GROSS DESCRIPTION Received in fixative labeled fistula tract of abdomen is an irregularly shaped fragment of hemorrhagic caldwell-pink soft tissue measuring 4.0 x 3.5 x 1.0 cm. There is a suture at one end marked peritoneal surface. The specimen is inked and serially sectioned. No suspicious gross lesions are seen. A shave biopsy of the deep peritoneal surface is submitted in cassette 1 and numerous additional cross sections are submitted in cassette 2, 3 and 4. DIAGNOSTIC NOTE (PATHOLOGY) Gross examination revealed a portion of hemorrhagic soft tissue. Numerous sections were submitted for histologic exam, which show portions of skin and subcutaneous tissue with brisk inflammation and organizing scar tissue. No evidence of malignancy is seen. Clinical correlation is required. SURGICAL PROCEDURE: WOUND DEBRIDEMENT OF ABDOMEN TISSUE SUBMITTED FISTULA TRACK OF ABDOMEN Signed SHAILA KIM MD 11/04/18 1223 END OF REPORT Normal [facility] Comment on above: Order Comment: REFER RING MEDICAL DOCTOR: RERE SURGEON: REINA # OF CONTAINERS 1 TISSUE SUBMITTED: FISTULA TRACK OF ABDOMEN PROCEDURE: WOUND DEBRIDEMENT OF ABD PRELIMINARY DIAGNOSIS: ABD WOUND Performed By: #### F IS #### [facility] [address] [place] [address] BASIC METABOLIC PANELon 10-02 Calcium [Mass/Vol] 9.3 mg/dL Normal 8.5-10.5 [facility] Comment on above: Performed By: #### C BCD, BMP #### [facility] [address] [place] [address] Chloride [Moles/Vol] 104 mmol/L Normal 98-107 [facility] Comment on above: Performed By: #### C BCD, BMP #### [facility] [address] [place] [address] CO2 [Moles/Vol] 29 mmol/L Normal 21-32 [facility] Comment on above: Performed By: #### C BCMadi, BMP #### [facility] [address] [place] [address] Creatinine [Mass/Vol] 1.29 mg/dL Normal 0.70-1.30 [facility] Comment on above: Performed By: #### C BCMadi, BMP #### [facility] [address] [place] [address] EST GLOM FILT > 60 Normal [facility] Comment on above: Result Comment: Result Units: mL/min/1.73 m2 Note: Persistent reduction for 3 months or more of an eGFR of <60 ml/min/1.73 m2 defines Chronic Kidney Disease (CKD). Patients with eGFR values greater than or equal to 60 ml/min/1.73 m2 may also have CKD if evidence of persistent proteinuria is present. STAGES OF CKD eGFR Stage 1 Kidney damage with normal kidney function >=90 Stage 2 Kidney damage with mild loss of kidney function 89-60 Stage 3a Mild to moderate loss of kidney function 59-44 Stage 3b Moderate to severe loss of kidney function 43-30 Stage 4 Severe loss of kidney function 29-15 Stage 5 Kidney failure < 15 . Performed By: #### C KALEB, BMP #### [facility] [address] [place] [address] ESTIMATED GLOM FILT RATE 55 mL/min/ Low [facility] Comment on above: Performed By: #### C BCMadi, BMP #### [facility] [address] [place] [address] Glucose [Mass/Vol] 99 mg/dL Normal 65-99 [facility] Comment on above: Performed By: #### C BCMadi, BMP #### [facility] [address] [place] [address] Potassium [Moles/Vol] 3.7 mmol/L Normal 3.5-5.1 [facility] Comment on above: Performed By: #### C BCD, BMP #### [facility] [address] [place] [address] Sodium [Moles/Vol] 139 mmol/L Normal 136-145 [facility] Comment on above: Performed By: #### C KALEB, BMP #### [facility] [address] [place] [address] Urea nitrogen [Mass/Vol] 15 mg/dL Normal 7-24 [facility] Comment on above: Performed By: #### C KALEB, BMP #### [facility] [address] [place] [address] CBC with DIFFERENTIALon 10-02 Basophils (Bld) [#/Vol] 0.0 10*3/uL Normal 0.0-0.1 [facility] Comment on above: Performed By: #### C KALEB, BMP #### [facility] [address] [place] [address] Basophils/100 WBC (Bld) 0.5 % Normal 0.0-1.0 [facility] Comment on above: Performed By: #### C KALEB, BMP #### [facility] [address] [place] [address] Eosinophils (Bld) [#/Vol] 0.3 10*3/uL Normal 0.0-0.4 [facility] Comment on above: Performed By: #### C BCMadi, BMP #### [facility] [address] [place] [address] Eosinophils/100 WBC (Bld) 3.4 % Normal 1.0-4.0 [facility] Comment on above: Performed By: #### C BCMadi, BMP #### [facility] [address] [place] [address] Hematocrit (Bld) [Volume fraction] 43.7 % Normal 42.0-52.0 [facility] Comment on above: Performed By: #### C BCMadi, BMP #### [facility] [address] [place] [address] Hemoglobin (Bld) [Mass/Vol] 14.2 g/dL Normal 14.0-18.0 [facility] Comment on above: Performed By: #### C BCMadi, BMP #### [facility] [address] [place] [address] IG # 0.0 10*3/uL Normal 0.0-0.1 [facility] Comment on above: Performed By: #### C BCMadi, BMP #### [facility] [address] [place] [address] IG % 0.2 % Normal 0.0-1.0 [facility] Comment on above: Performed By: #### C BCMadi, BMP #### [facility] [address] [place] [address] Lymphocytes (Bld) [#/Vol] 2.0 10*3/uL Normal 1.3-4.4 [facility] Comment on above: Performed By: #### C KALEB, BMP #### [facility] [address] [place] [address] Lymphocytes/100 WBC (Bld) 23.3 % Low 27.0-41.0 [facility] Comment on above: Performed By: #### C KALEB, BMP #### [facility] [address] [place] [address] MCH (RBC) [Entitic mass] 32.5 g/dl Low 33.0-37.0 [facility] Comment on above: Performed By: #### C BCMadi, BMP #### [facility] [address] [place] [address] MCV (RBC) [Entitic vol] 88.6 fL Normal 80.0-94.0 [facility] Comment on above: Performed By: #### C BCMadi, BMP #### [facility] [address] [place] [address] MEAN CORPUSCULAR HGB 28.8 pg Normal 27.0-31.0 [facility] Comment on above: Performed By: #### C BCMadi, BMP #### [facility] [address] [place] [address] Monocytes (Bld) [#/Vol] 0.6 10*3/uL Normal 0.1-1.0 [facility] Comment on above: Performed By: #### C KALEB, BMP #### [facility] [address] [place] [address] Monocytes/100 WBC (Bld) 6.9 % Normal 3.0-9.0 [facility] Comment on above: Performed By: #### C KALEB, BMP #### [facility] [address] [place] [address] Neutrophils (Bld) [#/Vol] 5.6 10*3/uL Normal 2.3-7.9 [facility] Comment on above: Performed By: #### C KALEB, BMP #### [facility] [address] [place] [address] Neutrophils/100 WBC (Bld) 65.7 % Normal 47.0-73.0 [facility] Comment on above: Performed By: #### C KALEB, BMP #### [facility] [address] [place] [address] NUCLEATED RED BLOOD CELL 0.0 % Normal 0.0-0.0 [facility] Comment on above: Performed By: #### C KALEB, BMP #### [facility] [address] [place] [address] NUCLEATED RED BLOOD CELL 0.0 10*3/uL Normal 0.0-0.0 [facility] Comment on above: Performed By: #### C KALEB, BMP #### [facility] [address] [place] [address] PLATELET COUNT AUTOMATED 198 10*3/uL Normal 130-400 [facility] Comment on above: Performed By: #### C BCMadi, BMP #### [facility] [address] [place] [address] Platelet mean volume (Bld) [Entitic vol] 9.9 fL Normal 9.6-12.3 [facility] Comment on above: Performed By: #### C BCD, BMP #### [facility] [address] [place] [address] RBC (Bld) [#/Vol] 4.93 10*6/uL Normal 4.50-5.90 [facility] Comment on above: Performed By: #### C BCD, BMP #### [facility] [address] [place] [address] RED CELL DISTRI WIDTH 14.1 % Normal 0-14.5 [facility] Comment on above: Performed By: #### C BCD, BMP #### [facility] [address] [place] [address] WBC (Bld) [#/Vol] 8.5 10*3/uL Normal 4.8-10.8 [facility] Comment on above: Performed By: #### C BCD, BMP #### [facility] [address] [place] [address] ELECTROCARDIOGRAM REPORTon 0 10-30-2018 Platen Grinder Report [place], [place] ELECTROCARDIOGRAM REPORT NAME: JAVIER JOHNSON Neida UNIT #: [id number] ROOM: DOCTOR: NORBERT DRAFT REPORT BIRTHDATE: [birth year] [facility] Test Date: 2018-10-30 Test Time: 13:16:16 Pat Name: JAVIER JOHNSON Department: Room: Gender: M 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 Calderón : 1945 Requested By: MICHELLE JOHNSTON Order Number: [id number] Reading MD: Miguel Rodriguez MD Measurements Intervals Waves Rate: 55 P: 75 MI: 145 QRS: 49 QRSD: 94 T: 57 QT: 475 QTc: 455 Interpretive Statements Sinus rhythm Probable left atrial enlargement No previous ECG available for comparison Electronically Signed On 10-30-2018 18:04:12 PST by Miguel Rodriguez MD CM:EKGRPT:ELECTROCARDIOGRAM REPORT 1316 1804 MICHELLE JOHNSTON MD EPIPHANY DRAFT REPORT MICHELLE JOHNSTON MD Normal [facility] Reflex Urn Culton 08-07-2018 Urinalysis complete W Reflex Culture panel - Urine ORGANISM ID: 1.1 - Lactose Fermenting [place]s [place] Count 50,000-100,000 CFU/ml Comment Indole positiveORGANISM ID: 1.2 - Nonlactose Fermenting [place]s [place] Count 1,000-9,000 CFU/ml Comment Oxidase positiveORGANISM ID: 1.3 - Mixed Urogenital Daly [place] Count 10,000-50,000 CFU/ml Comment More than 2 organisms isolated, greater than MORE2 10,000 CFU/ML. No further workup on this isolate MORE3 unless requested. Normal [facility] [place] Comment on above: Performed By: #### 5 8077-9 ####[facility] [place], [place] [address] CT urogramon 08-05-2018 CT urogram [facility] [address] [place], [place] [address] CT Scan Report Signed Patient: JAVIER JOHNSON MR#: [id number] : 1945 Acct:[id number] Age/Sex: 73 / M Admit Date: 08/05/18 Loc: ANC Attending Dr: Dallas Ortiz MD Ordering Physician: Dallas Ortiz MD Date of Service: 08/05/18 Procedure(s): CT urogram Accession Number(s): [id number] cc: PHYSICIAN INDICATIONS: C67.9 Technique: Axial images through the abdomen and pelvis without and with multiphase contrast imaging. CT Dose Index: 7.4 - 8.9 mGy. DLP: 1186 mGy-cm. Administered 115.0 ml of ISOVUE 300.00 mg/ml. AEC. k=0.015 mSv/(mGy-cm) Findings: The kidneys appear unremarkable bilaterally with normal symmetric enhancement. Right kidney measures 11.1 x 6.0 cm and left kidney measures 10.4 x 5.6 cm. 4.6 cm nonenhancing cyst mid pole right kidney measuring 6 HU. 2.5 cm nonenhancing cyst mid pole left kidney measuring 15 HU. No renal calculi. No hydronephrosis. No ureteral stones are present. Previous cystectomy. Ileal bladder appears unremarkable. No adenopathy along the iliac or inguinal chain. No bony lesions. The heart size is normal. The lung bases are clear. The liver is unremarkable. The adrenal glands are unremarkable. The spleen and pancreas are unremarkable. No adenopathy or mass lesion in the messentary or retroperitoneum. The aorta is normal in caliber. Postsurgical changes in the pelvis with ostomy and left lower quadrant and ileal bladder and right lower quadrant. No masses are seen in the pelvis. Impression: CT Urogram (Abdomen and Pelvis without and with contrast) including 3D imagin. Previous cystectomy. Ileal bladder appears unremarkable. No adenopathy along the iliac or inguinal chain. No bony lesions. Dictated By: Tony Barrios MD DD/ 55 Signed By: Tony Barrios MD 08/05/181655 Shape Carver: JAYLENE Normal [facility] Micro UrnSon 08-05-2018 Bacteria LM Ql (Urine sed) Trace Normal NONE SEEN [facility] [place] Comment on above: Order Comment: Urine ,Clean Catch Performed By: #### 1 2234-8, UAS ####[address] [address] RBC Test strip #/vol (U) 21-50 Normal NONE SEEN [facility] [place] Comment on above: Order Comment: Urine ,Clean Catch Performed By: #### 1 2234-8, UAS ####[address] [place] [address] WBC,Urine IRIS 51-100 Normal NONE SEEN [facility] [place] Comment on above: Order Comment: Urine ,Clean Catch Performed By: #### 1 5-8, UAS ####[address] [place] [address] PSA SerPl-mCncon 08-05-2018 Prostate specific Ag mass conc 0.10 ng/mL Normal 0.00-4.00 [facility]) Comment on above: Performed By: #### 2 857-1 ####[address] [address] Urinalysison 08-05-2018 Color Nom (U) YELLOW Normal [facility] ([place] Comment on above: Order Comment: Urine ,Clean Catch Performed By: #### 1 8, UAS ####[facility] [place] [address] Add Urine Culture REFLEXED TO CULTURE Normal [facility] [place] Comment on above: Order Comment: Urine ,Clean Catch Result Comment: A Ur ine Culture has been added to this specimen. Performed By: #### 1 8, UAS ####[address] [address] Appearance Nom (U) CLOUDY Normal [facility] [place] Comment on above: Order Comment: Urine ,Clean Catch Performed By: #### 1 8, UAS ####[address] [address] Bilirubin+Urobilinoge n Ql (U) Negative Normal NEGATIVE [facility] [place] Comment on above: Order Comment: Urine ,Clean Catch Performed By: #### 1 8, UAS ####[address] [address] Glucose Automated test strip mass conc (U) Negative Normal NEGATIVE [facility] [place] Comment on above: Order Comment: Urine ,Clean Catch Performed By: #### 1 8, UAS ####[address] [address] Ketones Ql (U) Negative Normal NEGATIVE [facility] ([place] Comment on above: Order Comment: Urine ,Clean Catch Performed By: #### 1 8, UAS ####[address] [address] Microscopic observation LM Nom (Urine sed) YES Normal [facility] ([place] Comment on above: Order Comment: Urine ,Clean Catch Result Comment: A Ur ine Microscopic has been added to this specimen. Performed By: #### 1 8, UAS ####[address] [place] [address] Nitrate Ql (U) Negative Normal NEGATIVE [facility] [place] Comment on above: Order Comment: Urine ,Clean Catch Performed By: #### 1 8, UAS ####[address] [place] [address] pH (U) 6.0 Normal 4.6-8.0 [facility] ([place] Comment on above: Order Comment: Urine ,Clean Catch Performed By: #### 1 8, UAS ####[address] [place] [address] Protein Automated test strip Ql (U) 30 mg/dL Abnormal NEGATIVE [facility] [place] Comment on above: Order Comment: Urine ,Clean Catch Performed By: #### 1 2235-04, UAS ####[address] [address] RBC Ql (U) MODERATE Abnormal NEGATIVE [facility] [place] Comment on above: Order Comment: Urine ,Clean Catch Performed By: #### 1 2235-04, UAS ####[address] [place] [address] Specific gravity Relative Density (U) 1.015 Normal 1.001-1.035 [facility] [place] Comment on above: Order Comment: Urine ,Clean Catch Performed By: #### 1 2235-04, UAS ####[address] [address] Urobilinogen Test strip mass conc (U) Negative Normal NEGATIVE [facility] [place] Comment on above: Order Comment: Urine ,Clean Catch Performed By: #### 1 2235-04, UAS ####[address] [address] WBC Visual Ql (U) MODERATE Abnormal NEGATIVE [facility] [place] Comment on above: Order Comment: Urine ,Clean Catch Performed By: #### 1 2235-8, UAS ####[facility] [place] [address] CBC With Platelet No Shaneka browne 09-20-2017 Erythrocyte distribution width Auto Ratio (RBC) 15.9 fL High 11.5-15.0 [facility] Comment on above: Order Comment: Garry cannon has been rescheduled by [facility] at 09/20/17 04:31. Reason:Failed attempt at venipuncture Erythrocytes (RBC) 3.48 E12/L Low 3.80-5.80 [facility] Comment on above: Order Comment: Garry cannon has been rescheduled by [facility] at 09/20/17 04:31. Reason:Failed attempt at venipuncture Hematocrit (HCT) 29.3 % Low 37.0-54.0 [facility] Comment on above: Order Comment: Garry cannon has been rescheduled by [facility] at 09/20/17 04:31. Reason:Failed attempt at venipuncture Hemoglobin mass conc (Bld) 8.9 g/dL Low 12.5-16.5 [facility] Comment on above: Order Comment: Garry cannon has been rescheduled by [facility] at 09/20/17 04:31. Reason:Failed attempt at venipuncture MCH 25.6 pg Low 26.0-35.0 [facility] Comment on above: Order Comment: Garry cannon has been rescheduled by [facility] at 09/20/17 04:31. Reason:Failed attempt at venipuncture MCHC mass conc (RBC) 30.4 % Low 32.0-34.5 [facility] Comment on above: Order Comment: Garry cannon has been rescheduled by [facility] at 09/20/17 04:31. Reason:Failed attempt at venipuncture MCV 84.2 fL Normal 80.0-99.9 [facility] Comment on above: Order Comment: Garry cannon has been rescheduled by [facility] at 09/20/17 04:31. Reason:Failed attempt at venipuncture Platelet mean volume (PMV) 10.2 fL Normal 7.0-12.0 [facility] Comment on above: Order Comment: Garry cannon has been rescheduled by [facility] at 09/20/17 04:31. Reason:Failed attempt at venipuncture Platelets 229 E9/L Normal 130-450 [facility] Comment on above: Order Comment: Garry cannon has been rescheduled by [facility] at 09/20/17 04:31. Reason:Failed attempt at venipuncture WBC (Leukocytes) 4.9 E9/L Normal 4.5-11.5 [facility] Comment on above: Order Comment: Garry cannon has been rescheduled by [facility] at 09/20/17 04:31. Reason:Failed attempt at venipuncture Erythrocyte distribution width Auto Ratio (RBC) 16.0 fL High 11.5-15.0 [facility] Comment on above: Order Comment: Garry cannon has been rescheduled by [facility] at 09/20/17 04:31. Reason:Failed attempt at venipuncture Erythrocytes (RBC) 3.50 E12/L Low 3.80-5.80 [facility] Comment on above: Order Comment: Garry cannon has been rescheduled by [facility] at 09/20/17 04:31. Reason:Failed attempt at venipuncture Hematocrit (HCT) 29.5 % Low 37.0-54.0 [facility] Comment on above: Order Comment: Garry cannon has been rescheduled by [facility] at 09/20/17 04:31. Reason:Failed attempt at venipuncture Hemoglobin mass conc (Bld) 8.9 g/dL Low 12.5-16.5 [facility] Comment on above: Order Comment: Garry cannon has been rescheduled by [facility] at 09/20/17 04:31. Reason:Failed attempt at venipuncture MCH 25.4 pg Low 26.0-35.0 [facility] Comment on above: Order Comment: Garry cannon has been rescheduled by [facility] at 09/20/17 04:31. Reason:Failed attempt at venipuncture MCHC mass conc (RBC) 30.2 % Low 32.0-34.5 [facility] Comment on above: Order Comment: Garry cannon has been rescheduled by [facility] at 09/20/17 04:31. Reason:Failed attempt at venipuncture MCV 84.3 fL Normal 80.0-99.9 [facility] Comment on above: Order Comment: Garry cannon has been rescheduled by [facility] at 09/20/17 04:31. Reason:Failed attempt at venipuncture Platelet mean volume (PMV) 10.3 fL Normal 7.0-12.0 [facility] Comment on above: Order Comment: Garry cannon has been rescheduled by [facility] at 09/20/17 04:31. Reason:Failed attempt at venipuncture Platelets 224 E9/L Normal 130-450 [facility] Comment on above: Order Comment: Garry cannon has been rescheduled by [facility] at 09/20/17 04:31. Reason:Failed attempt at venipuncture WBC (Leukocytes) 5.0 E9/L Normal 4.5-11.5 [facility] Comment on above: Order Comment: Garry cannon has been rescheduled by [facility] at 09/20/17 04:31. Reason:Failed attempt at venipuncture Comprehensive Metabolic Pane daniel 09-20-2017 Alanine aminotransferase (ALT) 9 U/L Normal 0-40 [facility] Comment on above: Order Comment: Garry cannon has been rescheduled by [facility] at 09/20/17 04:31. Reason:Failed attempt at venipuncture Albumin 2.6 g/dL Low 3.5-5.2 [facility] Comment on above: Order Comment: Garry cannon has been rescheduled by [facility] at 09/20/17 04:31. Reason:Failed attempt at venipuncture Alkaline phosphatase (ALP) 52 U/L Normal 40-129 [facility] Comment on above: Order Comment: Garry cannon has been rescheduled by [facility] at 09/20/17 04:31. Reason:Failed attempt at venipuncture Anion gap 15 mmol/L Normal 7-16 [facility] Comment on above: Order Comment: Garry cannon has been rescheduled by [facility] at 09/20/17 04:31. Reason:Failed attempt at venipuncture Aspartate aminotransferase (AST) 15 U/L Normal 0-39 [facility] Comment on above: Order Comment: Garry cannon has been rescheduled by [facility] at 09/20/17 04:31. Reason:Failed attempt at venipuncture Bilirubin (total) mg/dL Normal 0.0-1.2 [facility] Comment on above: Order Comment: Garry cannon has been rescheduled by [facility] at 09/20/17 04:31. Reason:Failed attempt at venipuncture Calcium 8.6 mg/dL Normal 8.6-10.2 [facility] Comment on above: Order Comment: Garry cannon has been rescheduled by [facility] at 09/20/17 04:31. Reason:Failed attempt at venipuncture Chloride 104 mmol/L Normal 98-107 [facility] Comment on above: Order Comment: Garry cannon has been rescheduled by [facility] at 09/20/17 04:31. Reason:Failed attempt at venipuncture CO2 23 mmol/L Normal 22-29 [facility] Comment on above: Order Comment: Garry cannon has been rescheduled by [facility] at 09/20/17 04:31. Reason:Failed attempt at venipuncture Creatinine 1.0 mg/dL Normal 0.7-1.2 [facility] Comment on above: Order Comment: Garry cannon has been rescheduled by [facility] at 09/20/17 04:31. Reason:Failed attempt at venipuncture eGFR (black) mL/min/{1.73_m2} Normal [facility] Comment on above: Order Comment: Garry cannon has been rescheduled by [facility] at 09/20/17 04:31. Reason:Failed attempt at venipuncture eGFR (non-black) mL/min/{1.73_m2} Normal >=60 [facility] Comment on above: Order Comment: Garry cannon has been rescheduled by [facility] at 09/20/17 04:31. Reason:Failed attempt at venipuncture Result Comment: Collections Rep jody Kidney Disease: less than 60 ml/min/1.73 sq.m. Kidney Failure: less than 15 ml/min/1.73 sq.m.Results valid for patients 18 years and older. Glucose mass conc 135 mg/dL High 74-109 [facility] Comment on above: Order Comment: Garry cannon has been rescheduled by [facility] at 09/20/17 04:31. Reason:Failed attempt at venipuncture Potassium molar conc 3.7 mmol/L Normal 3.5-5.0 [facility] Comment on above: Order Comment: Garry cannon has been rescheduled by [employer] at 09/20/17 04:31. Reason:Failed attempt at venipuncture Protein 5.9 g/dL Low 6.4-8.3 [facility] Comment on above: Order Comment: Garry cannon has been rescheduled by [facility] at 09/20/17 04:31. Reason:Failed attempt at venipuncture Sodium 142 mmol/L Normal 132-146 [facility] Comment on above: Order Comment: Garry cannon has been rescheduled by [facility] at 09/20/17 04:31. Reason:Failed attempt at venipuncture Urea nitrogen 7 mg/dL Low 8-23 [facility] Comment on above: Order Comment: Garry cannon has been rescheduled by [employer] [facility] at 09/20/17 04:31. Reason:Failed attempt at venipuncture Alanine aminotransferase (ALT) 9 U/L Normal 0-40 [facility] Comment on above: Order Comment: Garry cannon has been rescheduled by [facility] at 09/20/17 04:31. Reason:Failed attempt at venipuncture Albumin 2.5 g/dL Low 3.5-5.2 [facility] Comment on above: Order Comment: Garry cannon has been rescheduled by [employer] at 09/20/17 04:31. Reason:Failed attempt at venipuncture Alkaline phosphatase (ALP) 53 U/L Normal 40-129 [facility] Comment on above: Order Comment: Garry cannon has been rescheduled by [employer] at 09/20/17 04:31. Reason:Failed attempt at venipuncture Anion gap 13 mmol/L Normal 7-16 [facility] Comment on above: Order Comment: Garry cannon has been rescheduled by [facility] at 09/20/17 04:31. Reason:Failed attempt at venipuncture Aspartate aminotransferase (AST) 15 U/L Normal 0-39 [facility] Comment on above: Order Comment: Garry cannon has been rescheduled by [employer] at 09/20/17 04:31. Reason:Failed attempt at venipuncture Bilirubin (total) mg/dL Normal 0.0-1.2 [facility] Comment on above: Order Comment: Garry cannon has been rescheduled by [employer] at 09/20/17 04:31. Reason:Failed attempt at venipuncture Calcium 8.5 mg/dL Low 8.6-10.2 [facility] Comment on above: Order Comment: Garry cannon has been rescheduled by [employer] at 09/20/17 04:31. Reason:Failed attempt at venipuncture Chloride 106 mmol/L Normal 98-107 [facility] Comment on above: Order Comment: Garry cannon has been rescheduled by [employer] at 09/20/17 04:31. Reason:Failed attempt at venipuncture CO2 24 mmol/L Normal 22-29 [facility] Comment on above: Order Comment: Garry cannon has been rescheduled by [facility] at 09/20/17 04:31. Reason:Failed attempt at venipuncture Creatinine 1.0 mg/dL Normal 0.7-1.2 [facility] Comment on above: Order Comment: Garry cannon has been rescheduled by [employer] at 09/20/17 04:31. Reason:Failed attempt at venipuncture eGFR (black) mL/min/{1.73_m2} Normal [facility] Comment on above: Order Comment: Garry cannon has been rescheduled by [employer] at 09/20/17 04:31. Reason:Failed attempt at venipuncture eGFR (non-black) mL/min/{1.73_m2} Normal >=60 [facility] Comment on above: Order Comment: Garry cannon has been rescheduled by [employer] at 09/20/17 04:31. Reason:Failed attempt at venipuncture Result Comment: Collections Rep jody Kidney Disease: less than 60 ml/min/1.73 sq.m. Kidney Failure: less than 15 ml/min/1.73 sq.m.Results valid for patients 18 years and older. Glucose mass conc 140 mg/dL High 74-109 [facility] Comment on above: Order Comment: Garry cannon has been rescheduled by KAR[facility] at 09/20/17 04:31. Reason:Failed attempt at venipuncture Potassium molar conc 3.7 mmol/L Normal 3.5-5.0 [facility] Comment on above: Order Comment: Garry cannon has been rescheduled by [facility]ARL[facility] at 09/20/17 04:31. Reason:Failed attempt at venipuncture Protein 5.7 g/dL Low 6.4-8.3 [facility] Comment on above: Order Comment: Garry cannon has been rescheduled by KARL[facility] at 09/20/17 04:31. Reason:Failed attempt at venipuncture Sodium 143 mmol/L Normal 132-146 [facility] Comment on above: Order Comment: Garry cannon has been rescheduled by [employer] at 09/20/17 04:31. Reason:Failed attempt at venipuncture Urea nitrogen 7 mg/dL Low 8-23 [facility] Comment on above: Order Comment: Garry cannon has been rescheduled by KARLOS at 09/20/17 04:31. Reason:Failed attempt at venipuncture Consulton 09-20-2017 HIM IP Note OR Platen Grinder Normal [facility] Culture, Bloodon 09-20-2017 Culture, Blood Culture, Blood-: 5 Days- no growth Normal [facility] Culture, Blood 2on 7 Culture, Blood 2 Culture, Blood 2-: 5 Days- no growth Normal [facility] History and Physicalon 09-20 HIM IP Note OR Platen Grinder Normal [facility] Progress Noteon 09-20-2017 HIM IP Note OR Platen Grinder Normal [facility] HIM IP Note OR Platen Grinder Normal [facility] Prothrombin Timeon 7 INR Coag RelTime (PPP) 1.4 {INR} Normal [facility] Comment on above: Order Comment: Garry cannon has been rescheduled by KARLOS at 09/20/17 04:31. Reason:Failed attempt at venipuncture Prothrombin time (PT) Coag time (PPP) 15.0 s High 9.3-12.4 [facility] Comment on above: Order Comment: Garry cannon has been rescheduled by KARLOS at 09/20/17 04:31. Reason:Failed attempt at venipuncture Culture, Wound Aerobicon Culture, Wound Aerobic Culture, Wound Aerobic-: Gram Stain Specimen-: Gram stain performed from swab, interpret results withcaution. Swab specimens of sterile fluids are inferior toaspirate specimens for organism recovery.Rare Polymorphonuclear leukocytesEpithelial cells not seenNo organisms seenCulture, Wound Aerobic-: Escherichia coli Moderate growth -ORGANISM: Escherichia coli ANTIBIOTIC INTERPRETATION M.I.C. STATUS [ S = SUSCEPTIBLE R = RESISTANT I = INTERMEDIATE ] Amox icillin/Clavulanate S =4 FAmpicillin R >=32 FCefazolin S <=4 FCefepime S <=1 FCeftriaxone S <=1 FConfirmatory ESBL - Neg FGentamicin R >=16 FImipenem S <=0.25 FLevofloxacin S =1 FPiperacillin/Tazobactam S <=4 FTobramycin I =8 FTrimethoprim/Sulfamethoxaz ole R >=320 F Normal [facility] Plan of Careon 09-19-2017 HIM IP Note OR Platen Grinder Normal [facility] Plan of Careon 08-29-2017 HIM IP Note OR Platen Grinder Normal [facility] Progress Noteon 08-29-2017 HIM IP Note OR Platen Grinder Normal [facility] HIM IP Note OR Platen Grinder Normal [facility] Anesthesia Post-opon 017 HIM IP Note OR Platen Grinder Normal [facility] Op Noteon 08-28-2017 HIM IP Note OR Platen Grinder Normal [facility] Progress Noteon 08-28-2017 HIM IP Note OR Platen Grinder Normal [facility] HIM IP Note OR Platen Grinder Normal [facility] HIM IP Note OR Platen Grinder Normal [facility] Anesthesia Post-opon 017 HIM IP Note OR Platen Grinder Normal [facility] Plan of Careon 08-27-2017 HIM IP Note OR Platen Grinder Normal [facility] HIM IP Note OR Platen Grinder Normal [facility] HIM IP Note OR Platen Grinder Normal [facility] Progress Noteon 08-27-2017 HIM IP Note OR Platen Grinder Normal [facility] Plan of Careon 08-26-2017 HIM IP Note OR Platen Grinder Normal [facility] HIM IP Note OR Platen Grinder Normal [facility] HIM IP Note OR Platen Grinder Normal [facility] HIM IP Note OR Platen Grinder Normal [facility] Progress Noteon 08-26-2017 HIM IP Note OR Platen Grinder Normal [facility] HIM IP Note OR Platen Grinder Normal [facility] HIM IP Note OR Platen Grinder Normal [facility] HIM IP Note OR Platen Grinder Normal [facility] HIM IP Note OR Platen Grinder Normal [facility] Plan of Careon 08-25-2017 HIM IP Note OR Platen Grinder Normal [facility] HIM IP Note OR Platen Grinder Normal [facility] HIM IP Note OR Platen Grinder Normal [facility] Progress Noteon 08-25-2017 HIM IP Note OR Platen Grinder Normal [facility] Plan of Careon 08-24-2017 HIM IP Note OR Platen Grinder Normal [facility] Progress Noteon 08-24-2017 HIM IP Note OR Platen Grinder Normal [facility] CBC With Platelet and Differ entialon 08-23-2017 Basophils Auto #/vol (Bld) 0.01 E9/L Normal 0.00-0.20 [facility] Basophils/100 WBC Auto (Bld) 0.2 % Normal 0.0-2.0 [facility] Eosinophils 0.35 E9/L Normal 0.05-0.50 [facility] Eosinophils/100 leukocytes 5.5 % Normal 0.0-6.0 [facility] Erythrocyte distribution width Auto Ratio (RBC) 15.1 fL High 11.5-15.0 [facility] Erythrocytes (RBC) 3.11 E12/L Low 3.80-5.80 [facility] Granulocytes/100 WBC (Bld) 0.5 % Normal 0.0-5.0 [facility] Granulocytes/100 WBC (Bld) 0.03 E9/L Normal [facility] Hematocrit (HCT) 25.9 % Low 37.0-54.0 [facility] Hemoglobin mass conc (Bld) 8.2 g/dL Low 12.5-16.5 [facility] Lymphocytes 1.57 E9/L Normal 1.50-4.00 [facility] Lymphocytes/100 leukocytes 24.5 % Normal 20.0-42.0 [facility] MCH 26.4 pg Normal 26.0-35.0 [facility] MCHC mass conc (RBC) 31.7 % Low 32.0-34.5 [facility] MCV 83.3 fL Normal 80.0-99.9 [facility] Monocytes 0.65 E9/L Normal 0.10-0.95 [facility] Monocytes/100 leukocytes 10.1 % Normal 2.0-12.0 [facility] Neutrophils 3.81 E9/L Normal 1.80-7.30 [facility] Neutrophils/100 leukocytes 59.2 % Normal 43.0-80.0 [facility] Platelet mean volume (PMV) 10.3 fL Normal 7.0-12.0 [facility] Platelets 255 E9/L Normal 130-450 [facility] WBC (Leukocytes) 6.4 E9/L Normal 4.5-11.5 [facility] Comprehensive Metabolic Pane daniel 08-23-2017 Alanine aminotransferase (ALT) 10 U/L Normal 0-40 [facility] Albumin 2.1 g/dL Low 3.5-5.2 [facility] Alkaline phosphatase (ALP) 61 U/L Normal 40-129 [facility] Anion gap 11 mmol/L Normal 7-16 [facility] Aspartate aminotransferase (AST) 15 U/L Normal 0-39 [facility] Bilirubin (total) 0.2 mg/dL Normal 0.0-1.2 [facility] Calcium 8.5 mg/dL Low 8.6-10.2 [facility] Chloride 101 mmol/L Normal 98-107 [facility] CO2 24 mmol/L Normal 22-29 [facility] Creatinine 1.0 mg/dL Normal 0.7-1.2 [facility] eGFR (black) mL/min/{1.73_m2} Normal [facility] eGFR (non-black) mL/min/{1.73_m2} Normal >=60 [facility] Comment on above: Result Comment: Collections Rep jody Kidney Disease: less than 60 ml/min/1.73 sq.m. Kidney Failure: less than 15 ml/min/1.73 sq.m.Results valid for patients 18 years and older. Glucose mass conc 87 mg/dL Normal 74-109 [facility] Potassium molar conc 3.8 mmol/L Normal 3.5-5.0 [facility] Protein 5.4 g/dL Low 6.4-8.3 [facility] Sodium 136 mmol/L Normal 132-146 [facility] Urea nitrogen 13 mg/dL Normal 8-23 [facility] Plan of Careon 08-23-2017 HIM IP Note OR Platen Grinder Normal [facility] HIM IP Note OR Platen Grinder Normal [facility] HIM IP Note OR Platen Grinder Normal [facility] Progress Noteon 08-23-2017 HIM IP Note OR Platen Grinder Normal [facility] HIM IP Note OR Platen Grinder Normal [facility] HIM IP Note OR Platen Grinder Normal [facility] CBC With Platelet and Differ entialon 08-22-2017 Basophils Auto #/vol (Bld) 0.02 E9/L Normal 0.00-0.20 [facility] Basophils/100 WBC Auto (Bld) 0.3 % Normal 0.0-2.0 [facility] Eosinophils 0.32 E9/L Normal 0.05-0.50 [facility] Eosinophils/100 leukocytes 4.7 % Normal 0.0-6.0 [facility] Erythrocyte distribution width Auto Ratio (RBC) 15.1 fL High 11.5-15.0 [facility] Erythrocytes (RBC) 3.36 E12/L Low 3.80-5.80 [facility] Granulocytes/100 WBC (Bld) 0.03 E9/L Normal [facility] Granulocytes/100 WBC (Bld) 0.4 % Normal 0.0-5.0 [facility] Hematocrit (HCT) 27.7 % Low 37.0-54.0 [facility] Hemoglobin mass conc (Bld) 9.1 g/dL Low 12.5-16.5 [facility] Lymphocytes 1.33 E9/L Low 1.50-4.00 [facility] Lymphocytes/100 leukocytes 19.7 % Low 20.0-42.0 [facility] MCH 27.1 pg Normal 26.0-35.0 [facility] MCHC mass conc (RBC) 32.9 % Normal 32.0-34.5 [facility] MCV 82.4 fL Normal 80.0-99.9 [facility] Monocytes 0.58 E9/L Normal 0.10-0.95 [facility] Monocytes/100 leukocytes 8.6 % Normal 2.0-12.0 [facility] Neutrophils 4.46 E9/L Normal 1.80-7.30 [facility] Neutrophils/100 leukocytes 66.3 % Normal 43.0-80.0 [facility] Platelet mean volume (PMV) 10.0 fL Normal 7.0-12.0 [facility] Platelets 260 E9/L Normal 130-450 [facility] WBC (Leukocytes) 6.7 E9/L Normal 4.5-11.5 [facility] Comprehensive Metabolic Pane daniel 08-22-2017 Alanine aminotransferase (ALT) 9 U/L Normal 0-40 [facility] Albumin 2.4 g/dL Low 3.5-5.2 [facility] Alkaline phosphatase (ALP) 66 U/L Normal 40-129 [facility] Anion gap 14 mmol/L Normal 7-16 [facility] Aspartate aminotransferase (AST) 12 U/L Normal 0-39 [facility] Bilirubin (total) 0.3 mg/dL Normal 0.0-1.2 [facility] Calcium 8.6 mg/dL Normal 8.6-10.2 [facility] Chloride 100 mmol/L Normal 98-107 [facility] CO2 24 mmol/L Normal 22-29 [facility] Creatinine 1.0 mg/dL Normal 0.7-1.2 [facility] eGFR (black) mL/min/{1.73_m2} Normal [facility] eGFR (non-black) mL/min/{1.73_m2} Normal >=60 [facility] Comment on above: Result Comment: Collections Rep jody Kidney Disease: less than 60 ml/min/1.73 sq.m. Kidney Failure: less than 15 ml/min/1.73 sq.m.Results valid for patients 18 years and older. Glucose mass conc 117 mg/dL High 74-109 [facility] Potassium molar conc 3.9 mmol/L Normal 3.5-5.0 [facility] Protein 6.0 g/dL Low 6.4-8.3 [facility] Sodium 138 mmol/L Normal 132-146 [facility] Urea nitrogen 7 mg/dL Low 8-23 [facility] Plan of Careon 08-22-2017 HIM IP Note OR Platen Grinder Normal [facility] Progress Noteon 08-22-2017 HIM IP Note OR Platen Grinder Normal [facility] HIM IP Note OR Platen Grinder Normal [facility] CBC With Platelet and Differ entialon 08-21-2017 Basophils Auto #/vol (Bld) 0.01 E9/L Normal 0.00-0.20 [facility] Basophils/100 WBC Auto (Bld) 0.2 % Normal 0.0-2.0 [facility] Eosinophils 0.30 E9/L Normal 0.05-0.50 [facility] Eosinophils/100 leukocytes 5.1 % Normal 0.0-6.0 [facility] Erythrocyte distribution width Auto Ratio (RBC) 14.9 fL Normal 11.5-15.0 [facility] Erythrocytes (RBC) 3.26 E12/L Low 3.80-5.80 [facility] Granulocytes/100 WBC (Bld) 0.5 % Normal 0.0-5.0 [facility] Granulocytes/100 WBC (Bld) 0.03 E9/L Normal [facility] Hematocrit (HCT) 27.1 % Low 37.0-54.0 [facility] Hemoglobin mass conc (Bld) 8.7 g/dL Low 12.5-16.5 [facility] Lymphocytes 1.13 E9/L Low 1.50-4.00 [facility] Lymphocytes/100 leukocytes 19.2 % Low 20.0-42.0 [facility] MCH 26.7 pg Normal 26.0-35.0 [facility] MCHC mass conc (RBC) 32.1 % Normal 32.0-34.5 [facility] MCV 83.1 fL Normal 80.0-99.9 [facility] Monocytes 0.43 E9/L Normal 0.10-0.95 [facility] Monocytes/100 leukocytes 7.3 % Normal 2.0-12.0 [facility] Neutrophils 3.98 E9/L Normal 1.80-7.30 [facility] Neutrophils/100 leukocytes 67.7 % Normal 43.0-80.0 [facility] Platelet mean volume (PMV) 10.2 fL Normal 7.0-12.0 [facility] Platelets 205 E9/L Normal 130-450 [facility] WBC (Leukocytes) 5.9 E9/L Normal 4.5-11.5 [facility] Comprehensive Metabolic Pane daniel 08-21-2017 Alanine aminotransferase (ALT) 9 U/L Normal 0-40 [facility] Albumin 2.1 g/dL Low 3.5-5.2 [facility] Alkaline phosphatase (ALP) 60 U/L Normal 40-129 [facility] Anion gap 10 mmol/L Normal 7-16 [facility] Aspartate aminotransferase (AST) 11 U/L Normal 0-39 [facility] Bilirubin (total) 0.3 mg/dL Normal 0.0-1.2 [facility] Calcium 8.4 mg/dL Low 8.6-10.2 [facility] Chloride 100 mmol/L Normal 98-107 [facility] CO2 24 mmol/L Normal 22-29 [facility] Creatinine 0.9 mg/dL Normal 0.7-1.2 [facility] eGFR (black) mL/min/{1.73_m2} Normal [facility] eGFR (non-black) mL/min/{1.73_m2} Normal >=60 [facility] Comment on above: Result Comment: Collections Rep jody Kidney Disease: less than 60 ml/min/1.73 sq.m. Kidney Failure: less than 15 ml/min/1.73 sq.m.Results valid for patients 18 years and older. Glucose mass conc 116 mg/dL High 74-109 [facility] Potassium molar conc 4.1 mmol/L Normal 3.5-5.0 [facility] Protein 5.6 g/dL Low 6.4-8.3 [facility] Sodium 134 mmol/L Normal 132-146 [facility] Urea nitrogen 7 mg/dL Low 8-23 [facility] Plan of Careon 08-21-2017 HIM IP Note OR Platen Grinder Normal [facility] HIM IP Note OR Platen Grinder Normal [facility] HIM IP Note OR Platen Grinder Normal [facility] Progress Noteon 08-21-2017 HIM IP Note OR Platen Grinder Normal [facility] HIM IP Note OR Platen Grinder Normal [facility] HIM IP Note OR Platen Grinder Normal [facility] HIM IP Note OR Platen Grinder Normal [facility] HIM IP Note OR Platen Grinder Normal [facility] HIM IP Note OR Platen Grinder Normal [facility] Comprehensive Metabolic Pane daniel 08-20-2017 Alanine aminotransferase (ALT) 13 U/L Normal 0-40 [facility] Comment on above: Result Comment: Spec imen is moderately Hemolyzed. Result may be artificially increased. Albumin 2.1 g/dL Low 3.5-5.2 [facility] Alkaline phosphatase (ALP) 64 U/L Normal 40-129 [facility] Comment on above: Result Comment: Spec imen is moderately Hemolyzed. Result may be artificially decreased. Anion gap 13 mmol/L Normal 7-16 [facility] Aspartate aminotransferase (AST) 38 U/L Normal 0-39 [facility] Comment on above: Result Comment: Spec imen is moderately Hemolyzed. Result may be artificially increased. Bilirubin (total) 0.3 mg/dL Normal 0.0-1.2 [facility] Calcium 8.4 mg/dL Low 8.6-10.2 [facility] Chloride 101 mmol/L Normal 98-107 [facility] CO2 21 mmol/L Low 22-29 [facility] Creatinine 0.8 mg/dL Normal 0.7-1.2 [facility] eGFR (black) mL/min/{1.73_m2} Normal [facility] eGFR (non-black) mL/min/{1.73_m2} Normal >=60 [facility] Comment on above: Result Comment: Collections Rep jody Kidney Disease: less than 60 ml/min/1.73 sq.m. Kidney Failure: less than 15 ml/min/1.73 sq.m.Results valid for patients 18 years and older. Glucose mass conc 125 mg/dL High 74-109 [facility] Potassium molar conc 4.7 mmol/L Normal 3.5-5.0 [facility] Comment on above: Result Comment: Spec rufino is moderately Hemolyzed. Result may be artificially increased. Protein 6.3 g/dL Low 6.4-8.3 [facility] Sodium 135 mmol/L Normal 132-146 [facility] Urea nitrogen 6 mg/dL Low 8-23 [facility] Plan of Careon 08-20-2017 HIM IP Note OR Platen Grinder Normal [facility] CBC With Platelet and Differ entialon 08-19-2017 Basophils Auto #/vol (Bld) 0.02 E9/L Normal 0.00-0.20 [facility] Basophils/100 WBC Auto (Bld) 0.3 % Normal 0.0-2.0 [facility] Eosinophils 0.27 E9/L Normal 0.05-0.50 [facility] Eosinophils/100 leukocytes 4.0 % Normal 0.0-6.0 [facility] Erythrocyte distribution width Auto Ratio (RBC) 15.1 fL High 11.5-15.0 [facility] Erythrocytes (RBC) 3.01 E12/L Low 3.80-5.80 [facility] Granulocytes/100 WBC (Bld) 0.02 E9/L Normal [facility] Granulocytes/100 WBC (Bld) 0.3 % Normal 0.0-5.0 [facility] Hematocrit (HCT) 26.2 % Low 37.0-54.0 [facility] Hemoglobin mass conc (Bld) 8.0 g/dL Low 12.5-16.5 [facility] Lymphocytes 1.24 E9/L Low 1.50-4.00 [facility] Lymphocytes/100 leukocytes 18.2 % Low 20.0-42.0 [facility] MCH 26.6 pg Normal 26.0-35.0 [facility] MCHC mass conc (RBC) 30.5 % Low 32.0-34.5 [facility] MCV 87.0 fL Normal 80.0-99.9 [facility] Monocytes 0.47 E9/L Normal 0.10-0.95 [facility] Monocytes/100 leukocytes 6.9 % Normal 2.0-12.0 [facility] Neutrophils 4.78 E9/L Normal 1.80-7.30 [facility] Neutrophils/100 leukocytes 70.3 % Normal 43.0-80.0 [facility] Platelet mean volume (PMV) 10.0 fL Normal 7.0-12.0 [facility] Platelets 177 E9/L Normal 130-450 [facility] WBC (Leukocytes) 6.8 E9/L Normal 4.5-11.5 [facility] Comprehensive Metabolic Pane daniel 08-19-2017 Alanine aminotransferase (ALT) 10 U/L Normal 0-40 [facility] Albumin 2.3 g/dL Low 3.5-5.2 [facility] Alkaline phosphatase (ALP) 53 U/L Normal 40-129 [facility] Anion gap 13 mmol/L Normal 7-16 [facility] Aspartate aminotransferase (AST) 15 U/L Normal 0-39 [facility] Bilirubin (total) 0.3 mg/dL Normal 0.0-1.2 [facility] Calcium 8.2 mg/dL Low 8.6-10.2 [facility] Chloride 106 mmol/L Normal 98-107 [facility] CO2 21 mmol/L Low 22-29 [facility] Creatinine 0.9 mg/dL Normal 0.7-1.2 [facility] eGFR (black) mL/min/{1.73_m2} Normal [facility] eGFR (non-black) mL/min/{1.73_m2} Normal >=60 [facility] Comment on above: Result Comment: Collections Rep jody Kidney Disease: less than 60 ml/min/1.73 sq.m. Kidney Failure: less than 15 ml/min/1.73 sq.m.Results valid for patients 18 years and older. Glucose mass conc 101 mg/dL Normal 74-109 [facility] Potassium molar conc 4.1 mmol/L Normal 3.5-5.0 [facility] Protein 5.6 g/dL Low 6.4-8.3 [facility] Sodium 140 mmol/L Normal 132-146 [facility] Urea nitrogen 8 mg/dL Normal 8-23 [facility] Plan of Careon 08-19-2017 HIM IP Note OR Platen Grinder Normal [facility] HIM IP Note OR Platen Grinder Normal [facility] Progress Noteon 08-19-2017 HIM IP Note OR Platen Grinder Normal [facility] HIM IP Note OR Platen Grinder Normal [facility] Comprehensive Metabolic Pane daniel 08-18-2017 Alanine aminotransferase (ALT) 10 U/L Normal 0-40 [facility] Albumin 2.1 g/dL Low 3.5-5.2 [facility] Alkaline phosphatase (ALP) 50 U/L Normal 40-129 [facility] Anion gap 13 mmol/L Normal 7-16 [facility] Aspartate aminotransferase (AST) 16 U/L Normal 0-39 [facility] Bilirubin (total) 0.3 mg/dL Normal 0.0-1.2 [facility] Calcium 8.1 mg/dL Low 8.6-10.2 [facility] Chloride 104 mmol/L Normal 98-107 [facility] CO2 20 mmol/L Low 22-29 [facility] Creatinine 0.9 mg/dL Normal 0.7-1.2 [facility] eGFR (black) mL/min/{1.73_m2} Normal [facility] eGFR (non-black) mL/min/{1.73_m2} Normal >=60 [facility] Comment on above: Result Comment: Collections Rep jody Kidney Disease: less than 60 ml/min/1.73 sq.m. Kidney Failure: less than 15 ml/min/1.73 sq.m.Results valid for patients 18 years and older. Glucose mass conc 134 mg/dL High 74-109 [facility] Potassium molar conc 3.8 mmol/L Normal 3.5-5.0 [facility] Protein 5.6 g/dL Low 6.4-8.3 [facility] Sodium 137 mmol/L Normal 132-146 [facility] Urea nitrogen 15 mg/dL Normal 8-23 [facility] Plan of Careon 08-18-2017 HIM IP Note OR Platen Grinder Normal [facility] HIM IP Note OR Platen Grinder Normal [facility] Progress Noteon 08-18-2017 HIM IP Note OR Platen Grinder Normal [facility] CBC With Platelet and Differ entialon 08-17-2017 Basophils Auto #/vol (Bld) 0.01 E9/L Normal 0.00-0.20 [facility] Basophils/100 WBC Auto (Bld) 0.1 % Normal 0.0-2.0 [facility] Eosinophils 0.00 E9/L Low 0.05-0.50 [facility] Eosinophils/100 leukocytes 0.0 % Normal 0.0-6.0 [facility] Erythrocyte distribution width Auto Ratio (RBC) 15.3 fL High 11.5-15.0 [facility] Erythrocytes (RBC) 3.53 E12/L Low 3.80-5.80 [facility] Granulocytes/100 WBC (Bld) 0.09 E9/L Normal [facility] Granulocytes/100 WBC (Bld) 0.7 % Normal 0.0-5.0 [facility] Hematocrit (HCT) 30.4 % Low 37.0-54.0 [facility] Hemoglobin mass conc (Bld) 9.5 g/dL Low 12.5-16.5 [facility] Lymphocytes 1.24 E9/L Low 1.50-4.00 [facility] Lymphocytes/100 leukocytes 9.4 % Low 20.0-42.0 [facility] MCH 26.9 pg Normal 26.0-35.0 [facility] MCHC mass conc (RBC) 31.3 % Low 32.0-34.5 [facility] MCV 86.1 fL Normal 80.0-99.9 [facility] Monocytes 0.83 E9/L Normal 0.10-0.95 [facility] Monocytes/100 leukocytes 6.3 % Normal 2.0-12.0 [facility] Neutrophils 11.09 E9/L High 1.80-7.30 [facility] Neutrophils/100 leukocytes 83.5 % High 43.0-80.0 [facility] Platelet mean volume (PMV) 10.0 fL Normal 7.0-12.0 [facility] Platelets 235 E9/L Normal 130-450 [facility] WBC (Leukocytes) 13.3 E9/L High 4.5-11.5 [facility] Comprehensive Metabolic Pane daniel 08-17-2017 Alanine aminotransferase (ALT) 10 U/L Normal 0-40 [facility] Albumin 2.4 g/dL Low 3.5-5.2 [facility] Alkaline phosphatase (ALP) 53 U/L Normal 40-129 [facility] Anion gap 17 mmol/L High 7-16 [facility] Aspartate aminotransferase (AST) 14 U/L Normal 0-39 [facility] Bilirubin (total) 0.3 mg/dL Normal 0.0-1.2 [facility] Calcium 8.3 mg/dL Low 8.6-10.2 [facility] Chloride 103 mmol/L Normal 98-107 [facility] CO2 17 mmol/L Low 22-29 [facility] Creatinine 1.1 mg/dL Normal 0.7-1.2 [facility] eGFR (black) mL/min/{1.73_m2} Normal [facility] eGFR (non-black) mL/min/{1.73_m2} Normal >=60 [facility] Comment on above: Result Comment: Collections Rep jody Kidney Disease: less than 60 ml/min/1.73 sq.m. Kidney Failure: less than 15 ml/min/1.73 sq.m.Results valid for patients 18 years and older. Glucose mass conc 140 mg/dL High 74-109 [facility] Potassium molar conc 4.4 mmol/L Normal 3.5-5.0 [facility] Protein 5.9 g/dL Low 6.4-8.3 [facility] Sodium 137 mmol/L Normal 132-146 [facility] Urea nitrogen 20 mg/dL Normal 8-23 [facility] Hemoglobin and Hematocriton 08-17-2017 Hematocrit (HCT) 33.7 % Low 37.0-54.0 [facility] Hemoglobin mass conc (Bld) 10.3 g/dL Low 12.5-16.5 [facility] Plan of Careon 08-17-2017 HIM IP Note OR Platen Grinder Normal [facility] Progress Noteon 08-17-2017 HIM IP Note OR Platen Grinder Normal [facility] HIM IP Note OR Platen Grinder Normal [facility] CBC With Platelet and Differ entialon 08-16-2017 Basophils Auto #/vol (Bld) 0.02 E9/L Normal 0.00-0.20 [facility] Basophils/100 WBC Auto (Bld) 0.3 % Normal 0.0-2.0 [facility] Eosinophils 0.22 E9/L Normal 0.05-0.50 [facility] Eosinophils/100 leukocytes 3.2 % Normal 0.0-6.0 [facility] Erythrocyte distribution width Auto Ratio (RBC) 15.4 fL High 11.5-15.0 [facility] Erythrocytes (RBC) 3.95 E12/L Normal 3.80-5.80 [facility] Granulocytes/100 WBC (Bld) 0.02 E9/L Normal [facility] Granulocytes/100 WBC (Bld) 0.3 % Normal 0.0-5.0 [facility] Hematocrit (HCT) 35.1 % Low 37.0-54.0 [facility] Hemoglobin mass conc (Bld) 10.7 g/dL Low 12.5-16.5 [facility] Lymphocytes 1.51 E9/L Normal 1.50-4.00 [facility] Lymphocytes/100 leukocytes 21.7 % Normal 20.0-42.0 [facility] MCH 27.1 pg Normal 26.0-35.0 [facility] MCHC mass conc (RBC) 30.5 % Low 32.0-34.5 [facility] MCV 88.9 fL Normal 80.0-99.9 [facility] Monocytes 0.71 E9/L Normal 0.10-0.95 [facility] Monocytes/100 leukocytes 10.2 % Normal 2.0-12.0 [facility] Neutrophils 4.48 E9/L Normal 1.80-7.30 [facility] Neutrophils/100 leukocytes 64.3 % Normal 43.0-80.0 [facility] Platelet mean volume (PMV) 9.6 fL Normal 7.0-12.0 [facility] Platelets 211 E9/L Normal 130-450 [facility] WBC (Leukocytes) 7.0 E9/L Normal 4.5-11.5 [facility] Comprehensive Metabolic Pane daniel 08-16-2017 Alanine aminotransferase (ALT) 8 U/L Normal 0-40 [facility] Albumin 2.4 g/dL Low 3.5-5.2 [facility] Alkaline phosphatase (ALP) 60 U/L Normal 40-129 [facility] Anion gap 13 mmol/L Normal 7-16 [facility] Aspartate aminotransferase (AST) 14 U/L Normal 0-39 [facility] Bilirubin (total) 0.5 mg/dL Normal 0.0-1.2 [facility] Calcium 8.4 mg/dL Low 8.6-10.2 [facility] Chloride 104 mmol/L Normal 98-107 [facility] CO2 20 mmol/L Low 22-29 [facility] Creatinine 1.0 mg/dL Normal 0.7-1.2 [facility] eGFR (black) mL/min/{1.73_m2} Normal [facility] eGFR (non-black) mL/min/{1.73_m2} Normal >=60 [facility] Comment on above: Result Comment: Collections Rep jody Kidney Disease: less than 60 ml/min/1.73 sq.m. Kidney Failure: less than 15 ml/min/1.73 sq.m.Results valid for patients 18 years and older. Glucose mass conc 75 mg/dL Normal 74-109 [facility] Potassium molar conc 3.5 mmol/L Normal 3.5-5.0 [facility] Protein 6.2 g/dL Low 6.4-8.3 [facility] Sodium 137 mmol/L Normal 132-146 [facility] Urea nitrogen 9 mg/dL Normal 8-23 [facility] Consulton 08-16-2017 HIM IP Note OR Platen Grinder Normal [facility] Plan of Careon 08-16-2017 HIM IP Note OR Platen Grinder Normal [facility] HIM IP Note OR Platen Grinder Normal [facility] HIM IP Note OR Platen Grinder Normal [facility] HIM IP Note OR Platen Grinder Normal [facility] Progress Noteon 08-16-2017 HIM IP Note OR Platen Grinder Normal [facility] HIM IP Note OR Platen Grinder Normal [facility] HIM IP Note OR Platen Grinder Normal [facility] HIM IP Note OR Platen Grinder Normal [facility] HIM IP Note OR Platen Grinder Normal [facility] Surgical Specimenon 08-16-20 17 Surgical Specimen [facility] [id number] [id number] FINAL SURGICAL PATHOLOGY REPORTNAME: JAVIER JOHNSON Date of 08/16/2017 Collection:Medical Record [id number] Date of 08/19/2017Number: Receipt:Age: 72 Y Sex: M Date 08/21/2017 13:05 Reported:Date Of : 1945Financial [id number] Admitting MICHEAL ZAFARumber: Physician:Patient [id number] Ordering MICHEAL JOHNSONOFREocation: Physician:Accession Number: [id number]:A. Small bowel fistula, excision: Segment of small bowel with serosaladhesions and serosal congestion/hemorrhageAdjace nt fibroadipose tissue with focal fat necrosisB. Rectum, excision: Status post previous anastomosis, intactSerosal adhesions, fat necrosis, and hemorrhage of fibroadipose tissueIncidental hyperplastic polypTwo (2) benign regional lymph nodes RHONDA BELLO M.D. (Electronic Signature)Specimen Submitted:A. SMALL INTESTINE, RESECTION NOT TUMORB. 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 Part 1, labeled Javier Jorge, small bowel fistula consists of anoval-shaped, saccular, portion of small bowel that has overall dimensionsof 7.7 x 5.3 x 4 cm. A row of numerous, small metallic surgical staplesmeasuring 6.5 cm in length is present upon the exterior. Multipletan-zhang, focally hemorrhagic fibromembranous adhesions are presentthroughout the length of the bowel segment. A small portion of goldenyellow fibrofatty mesenteric adipose tissue is attached to the exterior.The segment of bowel is opened longitudinally. Two intact anastomosissites course the long axis of the bowel segment. The mucosa is goldentan, soft and finely folded. Discrete mucosal lesions, areas ofulceration or obstruction are not present. The bowel wall ranges from 0.2to 0.3 cm in thickness. Sectioning does not reveal any sites ofperforation or fistula tracts. Sectioning through the mesenteric adiposetissue is unremarkable. Sales And Marketing Engineer sections are submitted.Block labels:A1: tangential stapled marginA2-5: player services representative bowel.B. Part 2, labeled Javier Johnson, rectum consists of an 11.5 cm inlength x 2.5 to 3 cm in diameter segment of large bowel which is stapledclosed at both ends. A few white/caldwell roughened fibrous adhesions arepresent toward the center of the bowel segment. Portions of tavera yellowfibrofatty pericolonic adipose tissue are also present throughout thelength of the bowel segment. The serosa is caldwell/zhang and smooth. Themucosa is tavera caldwell, smooth and finely folded. Discrete mucosal lesionsare not present. Sectioning reveals multiple metallic surgical staplesembedded within the muscularis propria, within the region of the fibrousadhesions, player services representative of a circumferential anastomosis site. Sites ofperforation or fistulous tracts are not appreciated. The bowel wallranges from 0.2 to 0.4 cm in thickness. Sectioning through the adherentfibrofatty tissue is unremarkable. Lymph nodes are not identified.Sales And Marketing Engineer sections are submitted.Block labels:B1-2: tangential surgical margins of resectionB3-4: apparent anastomosis siteB5-6: player services representative bowel. (IKE:IKE)CODES: [id number]; Department of Pathology Page 1 of 1 Normal [facility] Type and Screen Capture 3 sc rn cellon 08-16-2017 ABORH Capture Positive Normal [facility] Antibody 3 Cell Scrn Capture Negative Normal [facility] CBC With Platelet and Differ entialon 08-15-2017 Basophils Auto #/vol (Bld) 0.04 E9/L Normal 0.00-0.20 [facility] Basophils/100 WBC Auto (Bld) 0.4 % Normal 0.0-2.0 [facility] Eosinophils 0.21 E9/L Normal 0.05-0.50 [facility] Eosinophils/100 leukocytes 2.3 % Normal 0.0-6.0 [facility] Erythrocyte distribution width Auto Ratio (RBC) 15.6 fL High 11.5-15.0 [facility] Erythrocytes (RBC) 4.55 E12/L Normal 3.80-5.80 [facility] Granulocytes/100 WBC (Bld) 0.03 E9/L Normal [facility] Granulocytes/100 WBC (Bld) 0.3 % Normal 0.0-5.0 [facility] Hematocrit (HCT) 39.0 % Normal 37.0-54.0 [facility] Hemoglobin mass conc (Bld) 12.0 g/dL Low 12.5-16.5 [facility] Lymphocytes 1.85 E9/L Normal 1.50-4.00 [facility] Lymphocytes/100 leukocytes 20.5 % Normal 20.0-42.0 [facility] MCH 26.4 pg Normal 26.0-35.0 [facility] MCHC mass conc (RBC) 30.8 % Low 32.0-34.5 [facility] MCV 85.7 fL Normal 80.0-99.9 [facility] Monocytes 0.71 E9/L Normal 0.10-0.95 [facility] Monocytes/100 leukocytes 7.9 % Normal 2.0-12.0 [facility] Neutrophils 6.20 E9/L Normal 1.80-7.30 [facility] Neutrophils/100 leukocytes 68.6 % Normal 43.0-80.0 [facility] Platelet mean volume (PMV) 9.4 fL Normal 7.0-12.0 [facility] Platelets 275 E9/L Normal 130-450 [facility] WBC (Leukocytes) 9.0 E9/L Normal 4.5-11.[address] [facility] [address] ABDOMEN PELVIS W IV CONTR Lito 08-15-2017 CT ABDOMEN PELVIS W IV CONTRAST Patient : 7Age: 72 yearsGender: MaleOrder Date: 08/15/2017 5:55 PMEXAM: CT ABDOMEN PELVIS W IV CONTRAST Number of images [id number]: Low-dose CT acquisition technique included one offollowing options; 1 . Automated exposure control, 2. Adjustment of MAand or KV according to patient's size or 3. Use of iterativereconstruction.IND ICATION: History fistula; scrotal pain COMPARISON: Previous examination July 30, 2017FINDINGS:The lung bases demonstrate minimal scarring and emphysema. The liveris somewhat decreased in attenuation. Small cystic lesions areidentified in the right and left hepatic lobe. The gallbladder isslightly distended without acute inflammation. Spleen, pancreas, andadrenals are within normal limits. Multiple bilateral kidney cysts areidentified with the largest one in the right kidney measuring 5.7 x4.7 cm. A somewhat complex Bosniak type II cyst in the left kidneymeasuring 2.1 cm is identified with wall thickening and mural nodule.Surveillance is recommended. Atherosclerotic calcifications areidentified in the aorta.Pelvis: There is a large amount of streak artifact from bilateral hiparthroplasty. Postoperative changes with previous cystectomy withright lower quadrant ileal conduit is noted. Inflammatory changes areidentified in the bowel loops with suggestion of a fluid collectionwith air bubbles extending to the skin surface concerning for apreviously noted possible enterocutaneous fistula with adjacentinflammatory changes with a marginal improvement. No large fluidcollections are identified.IMPRESSION: 1. Postoperative changes with cystectomy and right lower quadrantileal conduit.2. Inflammatory changes in the lower pelvis with strandy densities andsmall amount of fluid collection with a linear collection with airbubbles extending to the skin surface concerning for persistententerocutaneous fistula with inflammatory changes in the pelvis. Smallamount of edema in the presacral area is also identified.3. Bosniak type II/III cystic lesion in the left kidney andsurveillance is recommended.Interpreted by:LORIE Plascenciaigned by:Cristino Sterling MD08/15/17Final result Normal [facility] Comprehensive Metabolic Pane daniel 08-15-2017 Alanine aminotransferase (ALT) 10 U/L Normal 0-40 [facility] Albumin 3.4 g/dL Low 3.5-5.2 [facility] Alkaline phosphatase (ALP) 75 U/L Normal 40-129 [facility] Anion gap 16 mmol/L Normal 7-16 [facility] Aspartate aminotransferase (AST) 21 U/L Normal 0-39 [facility] Comment on above: Result Comment: Spec imen is slightly Hemolyzed. Result may be artificially increased. Bilirubin (total) 0.3 mg/dL Normal 0.0-1.2 [facility] Calcium 9.2 mg/dL Normal 8.6-10.2 [facility] Chloride 102 mmol/L Normal 98-107 [facility] CO2 23 mmol/L Normal 22-29 [facility] Creatinine 1.0 mg/dL Normal 0.7-1.2 [facility] eGFR (black) mL/min/{1.73_m2} Normal [facility] eGFR (non-black) mL/min/{1.73_m2} Normal >=60 [facility] Comment on above: Result Comment: Collections Rep jody Kidney Disease: less than 60 ml/min/1.73 sq.m. Kidney Failure: less than 15 ml/min/1.73 sq.m.Results valid for patients 18 years and older. Glucose mass conc 96 mg/dL Normal 74-109 [facility] Potassium molar conc 3.7 mmol/L Normal 3.5-5.0 [facility] Protein 7.8 g/dL Normal 6.4-8.3 [facility] Sodium 141 mmol/L Normal 132-146 [facility] Urea nitrogen 11 mg/dL Normal 8-23 [facility] Culture, Urineon 08-15-2017 Culture, Urine Culture, Urine-: Pilar pascal, Urine-: Raoultella ornithinolytica >100,000 CFU/ml -ORGANISM: Raoultella ornithinolytica ANTIBIOTIC INTERPRETATION M.I.C. STATUS [ S = SUSCEPTIBLE R = RESISTANT I = INTERMEDIATE ] Amox icillin/Clavulanate R >=32 FAmpicillin R >=32 FCefazolin R >=64 FCefepime S <=1 FCeftriaxone S <=1 FGentamicin S <=1 FImipenem S =1 FLevofloxacin S <=0.12 FNitrofurantoin R =128 FPiperacillin/Tazobactam S <=4 FTrimethoprim/Sulfamethoxaz ole R >=320 F Normal [facility] ED Noteon 08-15-2017 HIM IP Note OR Platen Grinder Normal [facility] HIM IP Note OR Platen Grinder Normal [facility] History and Physicalon 08-15 HIM IP Note OR Platen Grinder Normal [facility] Lactic Acidon 08-15-2017 Lactate 1.6 mmol/L Normal 0.5-2.2 [facility] Lipaseon 08-15-2017 Lipase 39 U/L Normal 13-60 [facility] Op Noteon 08-15-2017 HIM IP Note OR Platen Grinder Normal [facility] Partial Thromboplastin Timeo n 08-15-2017 aPTT 34.9 s Normal 24.5-35.1 [facility] Prothrombin Timeon 7 INR Coag RelTime (PPP) 1.7 {INR} Normal [facility] Prothrombin time (PT) Coag time (PPP) 18.4 s High 9.3-12.4 [facility] Urinalysis, reflex to micros copicon 08-15-2017 Bilirubin Ql (U) Negative Normal Negative [facility] Urine, clarity TURBID Abnormal Clear [facility] Urine, color Yellow Normal Straw/Yello w [facility] Urine, glucose presence Negative Normal Negative [facility] Urine, hemoglobin presence MODERATE Abnormal Negative [facility] Urine, ketones presence Negative Normal Negative [facility] Urine, leukocyte esterase presence SMALL Abnormal Negative [facility] Urine, nitrite presence Positive Abnormal Negative [facility] Urine, pH 8.5 [pH] Normal 5.0-9.0 [facility] Urine, protein presence TRACE Normal Negative [facility] Urine, specific gravity 1.010 Normal 1.005-1.030 [facility] Urine, urobilinogen 0.2 {Melina'U}/dL Normal < 2.0 [facility] Urine Microscopicon 08-15-20 17 Urine Amorphous FEW Normal [facility] Urine, bacteria in sediment MANY Abnormal [facility] Urine, crystals in sediment Moderate Normal [facility] Comment on above: Result Comment: CALC IUM OXALATE Urine, erythrocytes NONE Normal 0-2 [facility] Urine, leukocytes 1-3 Normal 0-5 [facility] CBC With Platelet and Differ entialon 08-02-2017 Basophils Auto #/vol (Bld) 0.02 E9/L Normal 0.00-0.20 [facility] Comment on above: Order Comment: 05:49 Basophils/100 WBC Auto (Bld) 0.4 % Normal 0.0-2.0 [facility] Comment on above: Order Comment: 05:49 Eosinophils 0.23 E9/L Normal 0.05-0.50 [facility] Comment on above: Order Comment: 05:49 Eosinophils/100 leukocytes 4.3 % Normal 0.0-6.0 [facility] Comment on above: Order Comment: 05:49 Erythrocyte distribution width Auto Ratio (RBC) 14.8 fL Normal 11.5-15.0 [facility] Comment on above: Order Comment: 05:49 Erythrocytes (RBC) 3.55 E12/L Low 3.80-5.80 [facility] Comment on above: Order Comment: 05:49 Granulocytes/100 WBC (Bld) 0.02 E9/L Normal [facility] Comment on above: Order Comment: 05:49 Granulocytes/100 WBC (Bld) 0.4 % Normal 0.0-5.0 [facility] Comment on above: Order Comment: 05:49 Hematocrit (HCT) 30.2 % Low 37.0-54.0 [facility] Comment on above: Order Comment: 05:49 Hemoglobin mass conc (Bld) 9.7 g/dL Low 12.5-16.5 [facility] Comment on above: Order Comment: 05:49 Lymphocytes 1.55 E9/L Normal 1.50-4.00 [facility] Comment on above: Order Comment: 05:49 Lymphocytes/100 leukocytes 28.9 % Normal 20.0-42.0 [facility] Comment on above: Order Comment: 05:49 MCH 27.3 pg Normal 26.0-35.0 [facility] Comment on above: Order Comment: 05:49 MCHC mass conc (RBC) 32.1 % Normal 32.0-34.5 [facility] Comment on above: Order Comment: 05:49 MCV 85.1 fL Normal 80.0-99.9 [facility] Comment on above: Order Comment: 05:49 Monocytes 0.60 E9/L Normal 0.10-0.95 [facility] Comment on above: Order Comment: 05:49 Monocytes/100 leukocytes 11.2 % Normal 2.0-12.0 [facility] Comment on above: Order Comment: 05:49 Neutrophils 2.95 E9/L Normal 1.80-7.30 [facility] Comment on above: Order Comment: 05:49 Neutrophils/100 leukocytes 54.8 % Normal 43.0-80.0 [facility] Comment on above: Order Comment: 05:49 Platelet mean volume (PMV) 10.2 fL Normal 7.0-12.0 [facility] Comment on above: Order Comment: 05:49 Platelets 196 E9/L Normal 130-450 [facility] Comment on above: Order Comment: 05:49 WBC (Leukocytes) 5.4 E9/L Normal 4.5-11.5 [facility] Comment on above: Order Comment: 05:49 Comprehensive Metabolic Pane daniel 08-02-2017 Alanine aminotransferase (ALT) 17 U/L Normal 0-40 [facility] Comment on above: Order Comment: 05:49 Albumin 2.3 g/dL Low 3.5-5.2 [facility] Comment on above: Order Comment: 05:49 Alkaline phosphatase (ALP) 61 U/L Normal 40-129 [facility] Comment on above: Order Comment: 05:49 Anion gap 12 mmol/L Normal 7-16 [facility] Comment on above: Order Comment: 05:49 Aspartate aminotransferase (AST) 24 U/L Normal 0-39 [facility] Comment on above: Order Comment: 05:49 Bilirubin (total) 0.3 mg/dL Normal 0.0-1.2 [facility] Comment on above: Order Comment: 05:49 Calcium 8.7 mg/dL Normal 8.6-10.2 [facility] Comment on above: Order Comment: 05:49 Chloride 102 mmol/L Normal 98-107 [facility] Comment on above: Order Comment: 05:49 CO2 26 mmol/L Normal 22-29 [facility] Comment on above: Order Comment: 05:49 Creatinine 1.0 mg/dL Normal 0.7-1.2 [facility] Comment on above: Order Comment: 05:49 eGFR (black) mL/min/{1.73_m2} Normal [facility] Comment on above: Order Comment: 05:49 eGFR (non-black) mL/min/{1.73_m2} Normal >=60 [facility] Comment on above: Order Comment: 05:49 Result Comment: Collections Rep jody Kidney Disease: less than 60 ml/min/1.73 sq.m. Kidney Failure: less than 15 ml/min/1.73 sq.m.Results valid for patients 18 years and older. Glucose mass conc 92 mg/dL Normal 74-109 [facility] Comment on above: Order Comment: 05:49 Potassium molar conc 3.3 mmol/L Low 3.5-5.0 [facility] Comment on above: Order Comment: 05:49 Protein 6.0 g/dL Low 6.4-8.3 [facility] Comment on above: Order Comment: 05:49 Sodium 140 mmol/L Normal 132-146 [facility] Comment on above: Order Comment: 05:49 Urea nitrogen 11 mg/dL Normal 8-23 [facility] Comment on above: Order Comment: 05:49 Discharge Summaryon 08-02-20 17 HIM IP Note OR Platen Grinder Normal [facility] Progress Noteon 08-02-2017 HIM IP Note OR Platen Grinder Normal [facility] HIM IP Note OR Platen Grinder Normal [facility] CBC With Platelet and Differ entialon 08-01-2017 Basophils Auto #/vol (Bld) 0.02 E9/L Normal 0.00-0.20 [facility] Comment on above: Order Comment: 05:34 Basophils/100 WBC Auto (Bld) 0.4 % Normal 0.0-2.0 [facility] Comment on above: Order Comment: 05:34 Eosinophils 0.17 E9/L Normal 0.05-0.50 [facility] Comment on above: Order Comment: 05:34 Eosinophils/100 leukocytes 3.6 % Normal 0.0-6.0 [facility] Comment on above: Order Comment: 05:34 Erythrocyte distribution width Auto Ratio (RBC) 15.3 fL High 11.5-15.0 [facility] Comment on above: Order Comment: 05:34 Erythrocytes (RBC) 3.36 E12/L Low 3.80-5.80 [facility] Comment on above: Order Comment: 05:34 Granulocytes/100 WBC (Bld) 0.01 E9/L Normal [facility] Comment on above: Order Comment: 05:34 Granulocytes/100 WBC (Bld) 0.2 % Normal 0.0-5.0 [facility] Comment on above: Order Comment: 05:34 Hematocrit (HCT) 29.5 % Low 37.0-54.0 [facility] Comment on above: Order Comment: 05:34 Hemoglobin mass conc (Bld) 9.4 g/dL Low 12.5-16.5 [facility] Comment on above: Order Comment: 05:34 Lymphocytes 1.30 E9/L Low 1.50-4.00 [facility] Comment on above: Order Comment: 05:34 Lymphocytes/100 leukocytes 27.8 % Normal 20.0-42.0 [facility] Comment on above: Order Comment: 05:34 MCH 28.0 pg Normal 26.0-35.0 [facility] Comment on above: Order Comment: 05:34 MCHC mass conc (RBC) 31.9 % Low 32.0-34.5 [facility] Comment on above: Order Comment: 05:34 MCV 87.8 fL Normal 80.0-99.9 [facility] Comment on above: Order Comment: 05:34 Monocytes 0.48 E9/L Normal 0.10-0.95 [facility] Comment on above: Order Comment: 05:34 Monocytes/100 leukocytes 10.3 % Normal 2.0-12.0 [facility] Comment on above: Order Comment: 05:34 Neutrophils 2.70 E9/L Normal 1.80-7.30 [facility] Comment on above: Order Comment: 05:34 Neutrophils/100 leukocytes 57.7 % Normal 43.0-80.0 [facility] Comment on above: Order Comment: 05:34 Platelet mean volume (PMV) 10.3 fL Normal 7.0-12.0 [facility] Comment on above: Order Comment: 05:34 Platelets 172 E9/L Normal 130-450 [facility] Comment on above: Order Comment: 05:34 WBC (Leukocytes) 4.7 E9/L Normal 4.5-11.5 [facility] Comment on above: Order Comment: 05:34 Comprehensive Metabolic Pane daniel 08-01-2017 Alanine aminotransferase (ALT) 9 U/L Normal 0-40 [facility] Comment on above: Order Comment: 05:34 Albumin 2.3 g/dL Low 3.5-5.2 [facility] Comment on above: Order Comment: 05:34 Alkaline phosphatase (ALP) 59 U/L Normal 40-129 [facility] Comment on above: Order Comment: 05:34 Anion gap 12 mmol/L Normal 7-16 [facility] Comment on above: Order Comment: 05:34 Aspartate aminotransferase (AST) 15 U/L Normal 0-39 [facility] Comment on above: Order Comment: 05:34 Bilirubin (total) 0.2 mg/dL Normal 0.0-1.2 [facility] Comment on above: Order Comment: 05:34 Calcium 8.6 mg/dL Normal 8.6-10.2 [facility] Comment on above: Order Comment: 05:34 Chloride 101 mmol/L Normal 98-107 [facility] Comment on above: Order Comment: 05:34 CO2 24 mmol/L Normal 22-29 [facility] Comment on above: Order Comment: 05:34 Creatinine 1.2 mg/dL Normal 0.7-1.2 [facility] Comment on above: Order Comment: 05:34 eGFR (black) mL/min/{1.73_m2} Normal [facility] Comment on above: Order Comment: 05:34 eGFR (non-black) 60 mL/min/{1.73_m2} Normal >=60 [facility] Comment on above: Order Comment: 05:34 Result Comment: Collections Rep jody Kidney Disease: less than 60 ml/min/1.73 sq.m. Kidney Failure: less than 15 ml/min/1.73 sq.m.Results valid for patients 18 years and older. Glucose mass conc 82 mg/dL Normal 74-109 [facility] Comment on above: Order Comment: 05:34 Potassium molar conc 3.2 mmol/L Low 3.5-5.0 [facility] Comment on above: Order Comment: 05:34 Protein 5.9 g/dL Low 6.4-8.3 [facility] Comment on above: Order Comment: 05:34 Sodium 137 mmol/L Normal 132-146 [facility] Comment on above: Order Comment: 05:34 Urea nitrogen 12 mg/dL Normal 8-23 [facility] Comment on above: Order Comment: 05:34 Plan of Careon 08-01-2017 HIM IP Note OR Platen Grinder Normal [facility] HIM IP Note OR Platen Grinder Normal [facility] HIM IP Note OR Platen Grinder Normal [facility] Progress Noteon 08-01-2017 HIM IP Note OR Platen Grinder Normal [facility] HIM IP Note OR Platen Grinder Normal [facility] CBC With Platelet and Differ entialon 07-31-2017 Basophils Auto #/vol (Bld) 0.01 E9/L Normal 0.00-0.20 [facility] Basophils/100 WBC Auto (Bld) 0.2 % Normal 0.0-2.0 [facility] Eosinophils 0.10 E9/L Normal 0.05-0.50 [facility] Eosinophils/100 leukocytes 1.9 % Normal 0.0-6.0 [facility] Erythrocyte distribution width Auto Ratio (RBC) 15.6 fL High 11.5-15.0 [facility] Erythrocytes (RBC) 3.45 E12/L Low 3.80-5.80 [facility] Granulocytes/100 WBC (Bld) 0.03 E9/L Normal [facility] Granulocytes/100 WBC (Bld) 0.6 % Normal 0.0-5.0 [facility] Hematocrit (HCT) 29.9 % Low 37.0-54.0 [facility] Hemoglobin mass conc (Bld) 9.3 g/dL Low 12.5-16.5 [facility] Lymphocytes 0.72 E9/L Low 1.50-4.00 [facility] Lymphocytes/100 leukocytes 13.6 % Low 20.0-42.0 [facility] MCH 27.0 pg Normal 26.0-35.0 [facility] MCHC mass conc (RBC) 31.1 % Low 32.0-34.5 [facility] MCV 86.7 fL Normal 80.0-99.9 [facility] Monocytes 0.49 E9/L Normal 0.10-0.95 [facility] Monocytes/100 leukocytes 9.3 % Normal 2.0-12.0 [facility] Neutrophils 3.93 E9/L Normal 1.80-7.30 [facility] Neutrophils/100 leukocytes 74.4 % Normal 43.0-80.0 [facility] Platelet mean volume (PMV) 10.1 fL Normal 7.0-12.0 [facility] Platelets 151 E9/L Normal 130-450 [facility] WBC (Leukocytes) 5.3 E9/L Normal 4.5-11.5 [facility] Comprehensive Metabolic Pane daniel 07-31-2017 Alanine aminotransferase (ALT) 6 U/L Normal 0-40 [facility] Albumin 2.3 g/dL Low 3.5-5.2 [facility] Alkaline phosphatase (ALP) 59 U/L Normal 40-129 [facility] Anion gap 13 mmol/L Normal 7-16 [facility] Aspartate aminotransferase (AST) 14 U/L Normal 0-39 [facility] Bilirubin (total) 0.3 mg/dL Normal 0.0-1.2 [facility] Calcium 8.2 mg/dL Low 8.6-10.2 [facility] Chloride 102 mmol/L Normal 98-107 [facility] CO2 24 mmol/L Normal 22-29 [facility] Creatinine 1.2 mg/dL Normal 0.7-1.2 [facility] eGFR (black) mL/min/{1.73_m2} Normal [facility] eGFR (non-black) 60 mL/min/{1.73_m2} Normal >=60 [facility] Comment on above: Result Comment: Collections Rep jody Kidney Disease: less than 60 ml/min/1.73 sq.m. Kidney Failure: less than 15 ml/min/1.73 sq.m.Results valid for patients 18 years and older. Glucose mass conc 88 mg/dL Normal 74-109 [facility] Potassium molar conc 3.4 mmol/L Low 3.5-5.0 [facility] Protein 5.8 g/dL Low 6.4-8.3 [facility] Sodium 139 mmol/L Normal 132-146 [facility] Urea nitrogen 14 mg/dL Normal 8-23 [facility] ED Noteon 07-31-2017 HIM IP Note OR Platen Grinder Normal [facility] HIM IP Note OR Platen Grinder Normal [facility] HIM IP Note OR Platen Grinder Normal [facility] History and Physicalon 07-31 HIM IP Note OR Platen Grinder Normal [facility] Progress Noteon 07-31-2017 HIM IP Note OR Platen Grinder Normal [facility] HIM IP Note OR Platen Grinder Normal [facility] HIM IP Note OR Platen Grinder Normal [facility] HIM IP Note OR Platen Grinder Normal [facility] XR CHEST PORTABLEon 07-31-20 17 XR CHEST PORTABLE Patient 8DOB: 7Age: 72 yearsGender: MaleOrder Date: 07/30/2017 10:39 PMTECHNIQUE/NUMBER OF IMAGES/COMPARISON/CLINICAL HISTORY:Chest.AP.NUMBER OF IMAGES/VIEWS: One image, one view. HISTORY: Central venous line placement.FINDINGS: Right internal jugular central venous catheter tip in the SVC rightatrial junction. No infiltrates, consolidations or pleural effusionsare seen. There is no perihilar vascular congestion.IMPRESSION: No acute cardiopulmonary process.Interpreted by:LORIE Hutchisonigned by:Geraldo Loyola MD07/30/17Final result Normal [facility] CBC With Platelet and Differ entialon 07-30-2017 Basophils Auto #/vol (Bld) 0.02 E9/L Normal 0.00-0.20 [facility] Basophils/100 WBC Auto (Bld) 0.2 % Normal 0.0-2.0 [facility] Eosinophils 0.18 E9/L Normal 0.05-0.50 [facility] Eosinophils/100 leukocytes 2.1 % Normal 0.0-6.0 [facility] Erythrocyte distribution width Auto Ratio (RBC) 15.4 fL High 11.5-15.0 [facility] Erythrocytes (RBC) 3.94 E12/L Normal 3.80-5.80 [facility] Granulocytes/100 WBC (Bld) 0.04 E9/L Normal [facility] Granulocytes/100 WBC (Bld) 0.5 % Normal 0.0-5.0 [facility] Hematocrit (HCT) 34.5 % Low 37.0-54.0 [facility] Hemoglobin mass conc (Bld) 10.7 g/dL Low 12.5-16.5 [facility] Lymphocytes 1.32 E9/L Low 1.50-4.00 [facility] Lymphocytes/100 leukocytes 15.7 % Low 20.0-42.0 [facility] MCH 27.2 pg Normal 26.0-35.0 [facility] MCHC mass conc (RBC) 31.0 % Low 32.0-34.5 [facility] MCV 87.6 fL Normal 80.0-99.9 [facility] Monocytes 0.59 E9/L Normal 0.10-0.95 [facility] Monocytes/100 leukocytes 7.0 % Normal 2.0-12.0 [facility] Neutrophils 6.26 E9/L Normal 1.80-7.30 [facility] Neutrophils/100 leukocytes 74.5 % Normal 43.0-80.0 [facility] Platelet mean volume (PMV) 10.4 fL Normal 7.0-12.0 [facility] Platelets 182 E9/L Normal 130-450 [facility] WBC (Leukocytes) 8.4 E9/L Normal 4.5-11.[address] [facility] [address] ABDOMEN PELVIS W IV CONTR Lito 07-30-2017 CT ABDOMEN PELVIS W IV CONTRAST Patient : 7Age: 72 yearsGender: MaleOrder Date: 07/30/2017 8:30 PMTECHNIQUE/NUMBER OF IMAGES/COMPARISON/CLINICAL HISTORY:CT abdomen and pelvis.TECHNIQUE: Sequential axial images were obtained with sagittal andcoronal reconstructions after oral and IV contrast administration.Low-dose CT acquisition technique included one of following options;1. Automated exposure control, 2. Adjustment of MA and or KV accordingto patient's size or 3. Use of iterative reconstruction.CLINICAL HISTORY: 72-year-old male patient. Reversal of colostomy,wound drainage. For evaluation of abscess.Patient had previous cystectomy, has ileal conduit, and had previousprostatectomy.BLANQUITA RISON: No previous studies available for comparison FINDINGS: Study difficult to interpret due to the streak artifacts frombilateral hip prostheses which obscure detail in the area of interest.There is extravasation of contrast from the pelvic area into themidline anterior abdominal wall and subcutaneous soft tissues, forminga mucocutaneous fistula. There is presently oral contrast in the smallbowel and in the colon. The colorectal anastomosis is in the same areawhere tethering of several mid small bowel segments is seen. Properlocalization of the source of the mucocutaneous fistula, if it is thecolon or the small bowel, will require a more specific study withcontrast only in the distal colon/rectum and then contrast in thesmall bowel in 2 different stages.There is no indication that there is a bowel obstruction. There is nofree intraperitoneal air. There is normal size and enhancement for the liver and spleen. Thegallbladder is multicompartmentalized or segmented; this is ananatomical variation. The biliary tree is not dilated. The pancreaticduct is not dilated.There is no midline retroperitoneal adenopathy.Cysts are seen in both kidneys. The one seen on the left side iscomplex with internal septations; this requires a specific evaluation;ultrasound is initially recommended; if cannot be helpful incharacterization a multiphase contrast study or even MRI in [facility] will be recommended to evaluate this lobulated, complex cystin the left kidney which measures about 2.2 cm.The ileal conduit is patent, and there is no obstruction. Calcifiedatheromatous changes are seen in the abdominal aorta. Adrenals are notenlarged.The spleen appears unremarkable.IMPRESSION: 1. 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 Air is seen in the subcutaneoussoft tissues. The reversal of the colostomy was on May 31, 2017,as clinically referred, and this air in the anterior abdominal wall isrelated with the mucocutaneous fistula, not with the postoperativechanges.2. As there is a confluence between the colorectal anastomosis andsmall bowel segments in the same area where extravasation of contrastis seen, it is difficult to determine if the mucocutaneous fistula isfrom the small bowel or from the anastomosis of the colon. Properdetermination will require 2-stage evaluation, one with contrast inthe distal colon/rectum and the other with contrast in the smallbowel.3. As there is presently contrast in the small bowel and in the distalcolon and there are streak artifacts from bilateral hip prostheseswhich obscure detail, cannot precisely determine if it is related withperforation of the colon at the anastomotic site or from small bowel.4. Status post cystectomy.Case discussed with Dr. An, physician in [place], at the timeof the interpretation.Interpreted by:LORIE Hutchisonigned by:Geraldo Loyola MD07/30/17Final result Normal [facility] Comprehensive Metabolic Pane daniel 07-30-2017 Alanine aminotransferase (ALT) 7 U/L Normal 0-40 [facility] Albumin 3.0 g/dL Low 3.5-5.2 [facility] Alkaline phosphatase (ALP) 68 U/L Normal 40-129 [facility] Anion gap 13 mmol/L Normal 7-16 [facility] Aspartate aminotransferase (AST) 13 U/L Normal 0-39 [facility] Bilirubin (total) 0.3 mg/dL Normal 0.0-1.2 [facility] Calcium 9.4 mg/dL Normal 8.6-10.2 [facility] Chloride 95 mmol/L Low 98-107 [facility] CO2 27 mmol/L Normal 22-29 [facility] Creatinine 1.2 mg/dL Normal 0.7-1.2 [facility] eGFR (black) mL/min/{1.73_m2} Normal [facility] eGFR (non-black) 60 mL/min/{1.73_m2} Normal >=60 [facility] Comment on above: Result Comment: Collections Rep jody Kidney Disease: less than 60 ml/min/1.73 sq.m. Kidney Failure: less than 15 ml/min/1.73 sq.m.Results valid for patients 18 years and older. Glucose mass conc 129 mg/dL High 74-109 [facility] Potassium molar conc 2.8 mmol/L Low 3.5-5.0 [facility] Protein 6.8 g/dL Normal 6.4-8.3 [facility] Sodium 135 mmol/L Normal 132-146 [facility] Urea nitrogen 18 mg/dL Normal 8-23 [facility] Culture, Bloodon 07-30-2017 Culture, Blood Culture, Blood-: 5 Days- no growth Normal [facility] Culture, Blood 2on 7 Culture, Blood 2 Culture, Blood 2-: 5 Days- no growth Normal [facility] Culture, Urineon 07-30-2017 Culture, Urine Culture, Urine-: Growth not present Normal [facility] Culture, Wound Aerobicon Culture, Wound Aerobic Culture, Wound Aerobic-: Mixed daly isolated. Further workup and sensitivity testing is not routinely indicated and will not be performed. Mixed daly isolated includes: Mixed Gram negative rods Gram positive cocci Normal [facility] ED Noteon 07-30-2017 HIM IP Note OR Platen Grinder Normal [facility] HIM IP Note OR Platen Grinder Normal [facility] ED Provider Noteon 7 HIM IP Note OR Platen Grinder Normal [facility] Lactic Acidon 07-30-2017 Lactate 1.0 mmol/L Normal 0.5-2.2 [facility] Lipaseon 07-30-2017 Lipase 27 U/L Normal 13-60 [facility] Urinalysis, reflex to micros copicon 07-30-2017 Bilirubin Ql (U) Negative Normal Negative [facility] Urine, color Yellow Normal Straw/Yello w [facility] Urine, glucose presence Negative Normal Negative [facility] Urine, hemoglobin presence MODERATE Abnormal Negative [facility] Urine, ketones presence Negative Normal Negative [facility] Urine, leukocyte esterase presence SMALL Abnormal Negative [facility] Urine, nitrite presence Negative Normal Negative [facility] Urine, pH 6.5 [pH] Normal 5.0-9.0 [facility] Urine, protein presence TRACE Normal Negative [facility] Urine, specific gravity 1.015 Normal 1.005-1.030 [facility] Urine, urobilinogen 0.2 {Melina'U}/dL Normal < 2.0 [facility] Urine, clarity SL CLOUDY Normal Clear [facility] Urine Microscopicon 07-30-20 17 Urine, bacteria in sediment NONE Normal [facility] Urine, erythrocytes 5-10 Abnormal 0-2 [facility] Urine, leukocytes /uL Normal 0-5 [facility] Bacteria identified Anaer cx Nom (Unsp spec) Anaerobic Culture Anaerobic cocci [facility] Work Phone: Bacteria identified Cx Nom ( Wound) Wound Culture Escherichia coli [facility] Work Phone: Wound Culture Proteus mirabilis [facility] Work Phone: Wound Culture Staphylococcus epidermidis [facility] Work Phone: Wound Culture Corynebacterium amycolatum [facility] Work Phone: Culture, urine Bacteria identified Cx Nom (U) Escherichia coli [facility] Work Phone: Gram stain for investigation of transfusion reaction Microscopic observation Gram stain Nom (Unsp spec) [facility] Work Phone: Laboratory - Microbiology an d Antimicrobial susceptibility Bacteria identified Cx Nom (Bld) No growth in 5 days. [facility] Work Phone: Vital Signs Date Time Vital Sign Value Performing Clinician Facility 10-23-2022 13:42-0500 Body height 170.2 cm Season Lian ROBERTS.STAFFING ACCOUNT MANAGER Work Phone: [facility] 10-23-2022 13:42-0500 Body temperature 97.59 [degF] Season Lian SANTIAGOSTAFFING ACCOUNT MANAGER Work Phone: [facility] 10-23-2022 13:42-0500 Body weight 77.56 kg Season Lian ROBERTS.STAFFING ACCOUNT MANAGER Work Phone: [facility] 10-23-2022 13:42-0500 Diastolic blood pressure 80 mm[Hg] Season Lian SANTIAGOSTAFFING ACCOUNT MANAGER Work Phone: [facility] 10-23-2022 13:42-0500 Heart rate 82 /min Season Lian SANTIAGOSTAFFING ACCOUNT MANAGER Work Phone: [facility] 10-23-2022 13:42-0500 Respiratory rate 12 /min Season Rosenau RIPENING ROOM OPERATOR.STAFFING ACCOUNT MANAGER Work Phone: [facility] 10-23-2022 13:42-0500 SaO2% (BldA) [Mass fraction] 98 % Season Lian ROBERTS.STAFFING ACCOUNT MANAGER Work Phone: [facility] 10-23-2022 13:42-0500 Systolic blood pressure 160 mm[Hg] Season Lian HOYOSN.STAFFING ACCOUNT MANAGER Work Phone: [facility] 08-30-2022 15:00-0500 Body height 172.6 cm Pulm 8 [facility] 08-30-2022 15:00-0500 Body weight 78.4 kg Pulm 8 [facility] 08-30-2022 12:30-0500 Body temperature 97.39 [degF] Afia Cisneros MD, PhD Work Phone: [facility] 08-30-2022 12:30-0500 Diastolic blood pressure 71 mm[Hg] Afia Cisneros MD, PhD Work Phone: [facility] 08-30-2022 12:30-0500 Heart rate 67 /min Afia Cisneros MD, PhD Work Phone: [facility] 08-30-2022 12:30-0500 Respiratory rate 12 /min Afia Cisneros MD, PhD Work Phone: [facility] 08-30-2022 12:30-0500 SaO2% (BldA) [Mass fraction] 100 % Afia Cisneros MD, PhD Work Phone: [facility] 08-30-2022 12:30-0500 Systolic blood pressure 145 mm[Hg] Afia Cisneros MD, PhD Work Phone: [facility] 08-30-2022 11:00-0500 Body height 171.6 cm Pulm J-2 [facility] 08-30-2022 11:00-0500 Body weight 78 kg Pulm J-2 [facility] 08-17-2022 11:30-0500 Diastolic blood pressure 88 mm[Hg] Dr. Nataliya Avila Work Phone: [facility] 08-17-2022 11:30-0500 Heart rate 61 /min Dr. Nataliya Avila Work Phone: [facility] 08-17-2022 11:30-0500 Respiratory rate 20 /min Dr. Nataliya Avila Work Phone: [facility] 08-17-2022 11:30-0500 SaO2% (BldA) [Mass fraction] 98 % Dr. Nataliya Avila Work Phone: [facility] 08-17-2022 11:30-0500 Systolic blood pressure 138 mm[Hg] Dr. Nataliya Avila Work Phone: [facility] 08-17-2022 08:16-0500 Body height 172.[address] Nataliya Avila Work Phone: [facility] 08-17-2022 08:16-0500 Body mass index (BMI) [Ratio] 25.8 kg/m2 Dr. Nataliya Avila Work Phone: [facility] 08-17-2022 08:16-0500 Body temperature 97.9 [degF] Dr. Nataliya Avila Work Phone: [facility] 08-17-2022 08:16-0500 Body weight 77.[address] Nataliya Avila Work Phone: [facility] 07-06-2022 13:18-0400 Body temperature 98.2 [degF] Kinsey Hardy RN Work Phone: [facility] 07-06-2022 13:18-0400 Diastolic blood pressure 74 mm[Hg] Kinsey Hardy RN Work Phone: [facility] 07-06-2022 13:18-0400 Heart rate 64 /min Kinseyrobert Hardy RN Work Phone: [facility] 07-06-2022 13:18-0400 Respiratory rate 20 /min Kinsey Hardy RN Work Phone: [facility] 07-06-2022 13:18-0400 SaO2% (BldA) [Mass fraction] 99 % Kinsey Hardy RN Work Phone: [facility] 07-06-2022 13:18-0400 Systolic blood pressure 126 mm[Hg] Kinsey Hardy RN Work Phone: [facility] 06-27-2022 17:57-0400 Diastolic blood pressure 67 mm[Hg] Imelda Morris MD Work Phone: [facility] 06-27-2022 17:57-0400 Heart rate 61 /min Imelda Morris MD Work Phone: [facility] 06-27-2022 17:57-0400 Respiratory rate 20 /min Imelda Morris MD Work Phone: [facility] 06-27-2022 17:57-0400 SaO2% (BldA) [Mass fraction] 99 % Imelda Morris MD Work Phone: [facility] 06-27-2022 17:57-0400 Systolic blood pressure 156 mm[Hg] Imelda Morris MD Work Phone: [facility] 06-27-2022 17:24-0400 Body temperature 97.7 [degF] Imelda Morris MD Work Phone: [facility] 06-27-2022 13:51-0400 Body height 172.7 cm Imelda Morris MD Work Phone: [facility] 06-27-2022 13:51-0400 Body weight 77.56 kg Imelda Morris MD Work Phone: [facility] 06-21-2022 14:30-0400 Body temperature 98.1 [degF] Kinsey Hardy RN Work Phone: [facility] 06-21-2022 14:30-0400 Diastolic blood pressure 76 mm[Hg] Kinsey Hardy RN Work Phone: [facility] 06-21-2022 14:30-0400 Heart rate 68 /min Kinsey Hardy RN Work Phone: [facility] 06-21-2022 14:30-0400 Respiratory rate 16 /min Kinsey Most RN Work Phone: [facility] 06-21-2022 14:30-0400 SaO2% (BldA) [Mass fraction] 99 % Kinsey Most RN Work Phone: [facility] 06-21-2022 14:30-0400 Systolic blood pressure 122 mm[Hg] Kinsey Most RN Work Phone: [facility] 06-14-2022 15:14-0400 Body temperature 98.1 [degF] Kinsey Most RN Work Phone: [facility] 06-14-2022 15:14-0400 Diastolic blood pressure 74 mm[Hg] Kinsey Most RN Work Phone: [facility] 06-14-2022 15:14-0400 Heart rate 68 /min Kinsey Most RN Work Phone: [facility] 06-14-2022 15:14-0400 Respiratory rate 16 /min Kinsey Most RN Work Phone: [facility] 06-14-2022 15:14-0400 SaO2% (BldA) [Mass fraction] 99 % Kinsey Most RN Work Phone: [facility] 06-14-2022 15:14-0400 Systolic blood pressure 130 mm[Hg] Kinsey Most RN Work Phone: [facility] 06-07-2022 13:30-0400 Body height 172.7 cm Carri Osorio RIPENING ROOM OPERATOR.STAFFING ACCOUNT MANAGER Work Phone: [facility] 06-07-2022 13:30-0400 Body weight 77.75 kg Carri Osorio RIPENING ROOM OPERATOR.STAFFING ACCOUNT MANAGER Work Phone: [facility] 05-30-2022 15:05-0400 Body temperature 98.49 [degF] Kinsey Most RN Work Phone: [facility] 05-30-2022 15:05-0400 Diastolic blood pressure 66 mm[Hg] Kinsey Most RN Work Phone: [facility] 05-30-2022 15:05-0400 Heart rate 76 /min Kinsey Hardy RN Work Phone: [facility] 05-30-2022 15:05-0400 Respiratory rate 16 /min Kinsey Most RN Work Phone: [facility] 05-30-2022 15:05-0400 SaO2% (BldA) [Mass fraction] 97 % Kinseyrobert Hardy RN Work Phone: [facility] 05-30-2022 15:05-0400 Systolic blood pressure 120 mm[Hg] Kinseyrobert Hardy RN Work Phone: [facility] 05-23-2022 14:11-0400 Body temperature 98.01 [degF] Rima King RN Work Phone: [facility] 05-23-2022 14:11-0400 Body weight 75.07 kg Rima King RN Work Phone: [facility] 05-23-2022 14:11-0400 Diastolic blood pressure 68 mm[Hg] Rima King RN Work Phone: [facility] 05-23-2022 14:11-0400 Heart rate 66 /min Rima King RN Work Phone: [facility] 05-23-2022 14:11-0400 Respiratory rate 18 /min Rima King RN Work Phone: [facility] 05-23-2022 14:11-0400 SaO2% (BldA) [Mass fraction] 97 % Rima King RN Work Phone: [facility] 05-23-2022 14:11-0400 Systolic blood pressure 147 mm[Hg] Rima King RN Work Phone: [facility] 05-18-2022 06:32-0400 Body temperature 97.8 [degF] Dr. Nataliya Avila Work Phone: [facility] Work Phone: 05-18-2022 06:32-0400 Diastolic blood pressure 78 mm[Hg] Dr. Nataliya Avila Work Phone: [facility] Work Phone: 05-18-2022 06:32-0400 Heart rate 64 /min Dr. Nataliya Avila Work Phone: [facility] Work Phone: 05-18-2022 06:32-0400 Respiratory rate 16 /min Dr. Nataliya Avila Work Phone: [facility] Work Phone: 05-18-2022 06:32-0400 SaO2% (BldA) [Mass fraction] 98 % Dr. Nataliya Avila Work Phone: [facility] Work Phone: 05-18-2022 06:32-0400 Systolic blood pressure 132 mm[Hg] Dr. Nataliya Avila Work Phone: [facility] Work Phone: 05-18-2022 06:00-0400 Body weight 77.[address] Nataliya Avila Work Phone: [facility] Work Phone: 05-17-2022 10:24-0400 Body height [address] Nataliya Avila Work Phone: [facility] Work Phone: 05-13-2022 23:33-0400 Body mass index (BMI) [Ratio] 25.5 kg/m2 Dr. Nataliya Avila Work Phone: [facility] Work Phone: 05-13-2022 22:13-0400 Body temperature 98.4 [degF] [facility] Work Phone: 05-13-2022 22:13-0400 Diastolic blood pressure 78 mm[Hg] [facility] Work Phone: 05-13-2022 22:13-0400 Heart rate 78 /min [facility] Work Phone: 05-13-2022 22:13-0400 Respiratory rate 20 /min [facility] Work Phone: 05-13-2022 22:13-0400 SaO2% (BldA) [Mass fraction] 98 % [facility] Work Phone: 05-13-2022 22:13-0400 Systolic blood pressure 124 mm[Hg] [facility] Work Phone: 05-13-2022 13:30-0400 Body height 172.72 cm [facility] Work Phone: 05-13-2022 13:30-0400 Body mass index (BMI) [Ratio] 27.3 kg/m2 [facility] Work Phone: 05-13-2022 13:30-0400 Body weight 81.7 kg [facility] Work Phone: 04-18-2022 08:07-0400 Body height 172.7 cm Pacc 4 Work Phone: [facility] 04-18-2022 08:07-0400 Body temperature 97.59 [degF] [facility]acc 4 Work Phone: [facility] 04-18-2022 08:07-0400 Body weight 82.42 kg Pacc 4 Work Phone: [facility] 04-18-2022 08:07-0400 Diastolic blood pressure 74 mm[Hg] Pacc 4 Work Phone: [facility] 04-18-2022 08:07-0400 Heart rate 62 /min Pacc 4 Work Phone: [facility] 04-18-2022 08:07-0400 SaO2% (BldA) [Mass fraction] 100 % Pacc 4 Work Phone: [facility] 04-18-2022 08:07-0400 Systolic blood pressure 155 mm[Hg] Pacc 4 Work Phone: [facility] 04-10-2022 09:38-0400 Body height 172.7 cm John Mullins MD Work Phone: [facility] 04-10-2022 09:38-0400 Body weight 81.65 kg John Mullins MD Work Phone: [facility] 03-21-2022 10:30-0400 Body weight 82.1 kg Jose Deluna MD Work Phone: [facility] 03-21-2022 10:30-0400 Diastolic blood pressure 76 mm[Hg] Jose Deluna MD Work Phone: [facility] 03-21-2022 10:30-0400 Heart rate 65 /min Jose Deluna MD Work Phone: [facility] 03-21-2022 10:30-0400 Systolic blood pressure 133 mm[Hg] Jose Deluna MD Work Phone: [facility] 01-18-2022 07:32-0400 Body height 172.7 cm Melly Michele MD Work Phone: [facility] 01-18-2022 07:32-0400 Body temperature 97.39 [degF] Melly Michele MD Work Phone: [facility] 01-18-2022 07:32-0400 Body weight 85.28 kg Melly Michele MD Work Phone: [facility] 01-18-2022 07:32-0400 Diastolic blood pressure 73 mm[Hg] Melly Michele MD Work Phone: [facility] 01-18-2022 07:32-0400 Heart rate 80 /min Melly Michele MD Work Phone: [facility] 01-18-2022 07:32-0400 SaO2% (BldA) [Mass fraction] 99 % Melly Michele MD Work Phone: [facility] 01-18-2022 07:32-0400 Systolic blood pressure 148 mm[Hg] Melly Michele MD Work Phone: [facility] Encounters Encounter Date Encounter Type Care Provider Facility Start: 10-16-2024 End: 10-16-2024 ambulatory RADHA BEAL Facility:[facility] Start: 10-16-2024 End: 10-16-2024 Patient encounter procedure Season Froilan Beal APRN.STAFFING ACCOUNT MANAGER Work Phone: Thoracic [facility] Comment on above: Malignant neoplasm o f unspecified part of unspecified bronchus or lung (HCC) (Primary Dx) Start: 10-16-2024 End: 10-16-2024 Telemedicine consultation with patient Season Froilan Lian ROBERTS.STAFFING ACCOUNT MANAGER Work Phone: Thoracic Clinic Start: 10-15-2024 End: 10-15-2024 ambulatory TERRELL EVANS Facility:[facility] Start: 10-15-2024 End: 10-15-2024 Subsequent hospital visit by physician [facility] (I-Stat) Work Phone: Cat Scan Comment on above: Malignant neoplasm o f unspecified part of unspecified bronchus or lung (HCC) [C34.90] Start: 06-19-2024 End: 06-19-2024 ambulatory [facility] Facility:[facility] Start: 04-15-2024 End: 04-15-2024 ambulatory TERRELL EVANS Facility:[facility] Start: 04-15-2024 End: 04-15-2024 Patient encounter procedure Season Froilan Lian ROBERTS.STAFFING ACCOUNT MANAGER Work Phone: Thoracic [facility] Comment on above: Malignant neoplasm o f unspecified part of unspecified bronchus or lung (HCC) (Primary Dx) Start: 04-15-2024 End: 04-15-2024 Telemedicine consultation with patient Season Froilan Lian ROBERTS.STAFFING ACCOUNT MANAGER Work Phone: Thoracic Clinic Start: 04-13-2024 End: 04-13-2024 ambulatory TERRELL EVANS Facility:[facility] Start: 04-13-2024 End: 04-13-2024 Subsequent hospital visit by physician [facility] (I-Stat) Work Phone: Cat Scan Comment on above: Malignant neoplasm o f unspecified part of unspecified bronchus or lung (HCC) [C34.90] Start: 03-07-2023 End: 03-07-2023 Subsequent hospital visit by physician [facility] (I-Stat) Work Phone: Cat Scan Comment on above: Malignant neoplasm o f unspecified part of unspecified bronchus or lung (HCC) [C34.90] Start: 12-05-2022 End: 12-05-2022 ambulatory Season Froilan Beal APRN.STAFFING ACCOUNT MANAGER Work Phone: Thoracic Clinic Comment on above: Malignant neoplasm o f unspecified part of unspecified bronchus or lung (HCC) (Primary Dx) Start: 12-05-2022 End: 12-05-2022 Telemedicine consultation with patient Radha Mcgovern Lian ROBERTS.STAFFING ACCOUNT MANAGER Work Phone: [facility] Start: 12-04-2022 End: 12-04-2022 Subsequent hospital visit by physician Xr [facility] Work Phone: Radiology Comment on above: Malignant neoplasm o f lower lobe of left lung (HCC) [C34.32] Start: 11-08-2022 End: 11-08-2022 ambulatory [facility] Work Phone: Start: 11-08-2022 End: 11-08-2022 Patient encounter procedure [facility]-Laboratory, Specimen Start: 10-26-2022 End: 10-26-2022 ambulatory [facility] Work Phone: Start: 10-26-2022 End: 10-26-2022 Patient encounter procedure [facility]Labor[facility], Specimen Start: 10-23-2022 End: 10-23-2022 Patient encounter procedure Afia Cisneros MD, PhD Work Phone: Thoracic Clinic Comment on above: Malignant neoplasm o f lower lobe of left lung (HCC) (Primary Dx) Start: 10-23-2022 End: 10-23-2022 Subsequent hospital visit by physician Afia Cisneros MD, PhD Work Phone: Radiology Comment on above: Follow-up examinatio n following surgery [Z09] Start: 10-11-2022 End: 10-11-[address] (I-Stat) Radiology Start: 10-11-2022 End: 10-11-2022 Subsequent hospital visit by physician Ct 2 Main Qb (I-Stat) Radiology Comment on above: Lung nodule [R91.1] Start: 10-11-2022 End: 10-11-2022 Patient encounter status Card Injection Molecular Imagi ng Start: 10-11-2022 End: 10-11-2022 Subsequent hospital visit by physician Card Injection Molecular Imaging Comment on above: Lung nodule [R91.1] Start: 08-30-2022 End: 08-30-2022 ambulatory Pulm Fct Lab Main 5 Work Phone: Pulmonary Medicine Comment on above: Spirometry Start: 08-30-2022 End: 08-30-2022 Patient encounter procedure Pulm Fct Lab J-2 [facility] Comment on above: Lung nodule (Primary Dx) Start: 08-17-2022 End: 08-17-[address] Nataliya Avila Work Phone: [facility] Work Phone: Start: 08-17-2022 End: 08-17-[address] Nataliya Avila Work Phone: [facility]-Cat Scan, [facility] Start: 07-06-2022 End: 07-06-2022 Home visit Kinsey Hardy RN Work Phone: [facility] Comment on above: SN AGENCY DC W VISIT Start: 07-04-2022 End: 07-04-2022 Home visit Ayo Sorenson RN Work Phone: [facility] Comment on above: CARE COORDINATION Start: 07-04-2022 Telephone encounter Ayo Lo RN Work Phone: [facility] Comment on above: Home Care (Need for continued HH orders) Start: 06-29-2022 Telephone encounter Karson Merino MD Work Phone: Pulmonary Medicine Comment on above: Results Start: 06-27-2022 End: 06-27-2022 Subsequent hospital visit by physician Imelda Morris MD Work Phone: Admitting Comment on above: Bronchiolar disease [J98.09] Start: 06-22-2022 Chart abstracting Jessica Key RN Admitting Start: 06-21-2022 End: 06-21-2022 Home visit Kinsey Hardy RN Work Phone: [facility] Comment on above: SN ROUTINE Start: 06-20-2022 [facility] Comment on above: pre op bronch (Sched uled and confirmed with patient on 06/27/2022.) Start: 06-19-2022 ambulatory Dallas guerra MD Work Phone: Pulmonary Medicine Comment on above: Bronchoscopy Schedul ing-CLEARED (Initial bronch request) Start: 06-19-2022 Patient encounter status Jovan Baugh MD Work Phone: Pulmonary Medicine Start: 06-15-2022 Orders Only Trinh Francis-C Work Phone: Colorectal Surgery Start: 06-14-2022 End: 06-14-2022 Home visit Kinsey Hardy RN Work Phone: [facility] Comment on above: SN ROUTINE Start: 06-08-2022 End: 06-08-2022 Home visit Ayo Sorenson RN Work Phone: [facility] Comment on above: SN UNMADE VISIT Start: 06-08-2022 Telephone encounter Ayo Lo RN Work Phone: [facility] Comment on above: Home Care (error) Start: 06-07-2022 End: 06-07-2022 Nursing evaluation of patient and report Stoma Therapy Work Phone: Colorectal Surgery Comment on above: Encounter for attent ion to ileostomy (HCC) (Primary Dx) Start: 06-07-2022 End: 06-07-2022 Patient encounter procedure Carri Osorio APRN.STAFFING ACCOUNT MANAGER Work Phone: Colorectal Surgery Comment on above: Postoperative state (Primary Dx) Start: 06-03-2022 Home visit Annmarie kevin RN Work Phone: [facility] Comment on above: CARE COORDINATION Start: 05-30-2022 End: 05-30-2022 Home visit Kinsey Hardy RN Work Phone: [facility] Comment on above: SN ROUTINE Start: 05-30-2022 End: 05-30-[address] Nataliya Avila Work Phone: [facility] Work Phone: Start: 05-30-2022 End: 05-30-[address] Nataliya Avila Work Phone: [facility] Start: 05-23-2022 End: 05-23-2022 Home visit Rima King RN Work Phone: [facility] Comment on above: SN SOC Start: 05-21-2022 Telephone encounter Jahaira landeros Work Phone: [facility] Comment on above: Home Care (Confirmat ion Call ) Start: 05-18-2022 Non-patient / Non-visit Dr. Pena Work Phone: [facility] Start: 05-17-2022 Non-patient / Non-visit Dr. Pena Work Phone: [facility] Start: 05-17-2022 Telephone encounter Hailey MatiasRn iRtesh Shabazz RN Colorectal Surgery Comment on above: Parking Analyst - O ther Start: 05-16-2022 Non-patient / Non-visit Dr. Pena Work Phone: [facility] Start: 05-15-2022 Non-patient / Non-visit Dr. Pena Work Phone: [facility] Start: 05-14-2022 Non-patient / Non-visit Dr. Pena Work Phone: [facility] Start: 05-13-2022 Non-patient / Non-visit Dr. Pena Work Phone: [facility] Start: 05-13-2022 End: 05-18-2022 Evaluation and management of inpatient [facility]Medical Surgical 3 Start: 05-09-2022 Telephone encounter Terrell Michelle maninder Work Phone: NOC Comment on above: Follow Up Phone Call (All Clear) Start: 04-23-2022 Telephone encounter Hailey (Rn ) Mele PIMENTEL Colorectal Surgery Comment on above: Care Coordination Start: 04-19-2022 Telephone encounter Karthik Last (Primary School Principal) Hu nt Pre Anesthesia Comment on above: Received Outside Med ical Records (Coumadin ) Start: 04-18-2022 End: 04-18-2022 Admission to establishment Pacc Main 4 Work Phone: [facility] Start: 04-18-2022 End: 04-18-2022 Anticoagulant drug monitoring Pacc Main 4 Work Phone: Pre Anesthesia Comment on above: Pre-op evaluation (P rimary Dx); Enterocutaneous fistula; History of CVA (cerebrovascular accident); Lung nodule; Former smoker; Essential hypertension; Hyperlipidemia, unspecified hyperlipidemia type; Atrial fibrillation, unspecified type (HCC); History of bladder cancer; Chronic anticoagulation Start: 04-18-2022 End: 04-18-2022 Preprocedural examination done Pacc Main 4 Work Phone: Pre Anesthesia Start: 04-10-2022 End: 04-10-2022 Patient encounter procedure John Mullins MD Work Phone: Colorectal Surgery Comment on above: Enterocutaneous fist volodymyr (Primary Dx) Start: 03-29-2022 Telephone encounter John Burciaga MD Work Phone: Colorectal Surgery Comment on above: Patient Update Start: 03-21-2022 ambulatory Jose Deluna MD Work Phone: Urology Start: 03-21-2022 End: 03-21-2022 Patient encounter procedure Jose Deluna MD Work Phone: Urology Comment on above: Malignant neoplasm o f urinary bladder, unspecified site (HCC) (Primary Dx); Enterocutaneous fistula; Lung nodule Start: 03-14-2022 End: 03-14-2022 Patient encounter procedure [facility]Cat Scan, [facility] Start: 03-13-2022 End: 03-13-2022 Patient encounter procedure John Mullins MD Work Phone: Colorectal Surgery Comment on above: Enterocutaneous fist volodymyr (Primary Dx) Start: 02-13-2022 Telephone encounter No Pcp NOC Comment on above: Follow Up Phone Call (Post Discharge F/U attempt made. No answer. ) Start: 02-12-2022 Telephone encounter Kinsey Hardy RN Work Phone: [facility] Comment on above: Home Care (non admit to home health) Start: 02-10-2022 End: 02-10-2022 Home visit Kinsey Hardy RN Work Phone: [facility] Comment on above: SN NO ADMIT Start: 02-09-2022 Telephone encounter Self [facility] Comment on above: Home Care (WELCOME H OME CALL) Start: 02-08-2022 Telephone encounter Mikaela cotton LPN Work Phone: [facility] Comment on above: Home Care (confirmat ion call) Home Care ( to chris jernigan) Start: 02-02-2022 Telephone encounter Melly Michele MD Work Phone: [place] Provider Adult Comment on above: Patient Update Start: 01-31-2022 End: 01-31-2022 Patient encounter procedure [facility] Start: 01-24-2022 Telephone encounter Melly Michele MD Work Phone: General Surgery Comment on above: Results - Ct (CT sca n from [facility]) Start: 01-18-2022 End: 01-18-2022 Patient encounter procedure Melly Michele MD Work Phone: General Surgery Comment on above: Lower abdominal pain (Primary Dx) Start: 01-15-2022 End: 01-15-2022 Patient encounter procedure [facility], [facility] Start: 09-01-2018 Patient encounter procedure Shine Rosas Facility:[id number] Start: 08-05-2018 End: 08-05-2018 Patient encounter procedure Dallas Ortiz Facility:[facility] Start: 08-05-2018 End: 08-05-2018 Patient encounter procedure Dallas Ortiz Facility:[facility] Start: 09-19-2017 End: 09-20-2017 Evaluation and management of inpatient PCP UNKNOWN Facility:[facility] Start: 08-15-2017 End: 08-29-2017 Evaluation and management of inpatient RUBPEPE PACHECO Facility:[facility] Start: 08-01-2017 End: 08-02-2017 Evaluation and management of inpatient BUCK STAUFFER Facility:[facility] Start: 07-31-2017 End: 07-31-2017 Ambulatory BUCK STAUFFER Facility:[facility] Start: 07-30-2017 End: 07-31-2017 Emergency department patient visit BISHOP AN Facility:[facility] Nael Procedures Date Procedure Procedure Detail Performing Clinician Start: 10-15-2024 Ct thorax w/o contra st material Froilan Beal APRN.STAFFING ACCOUNT MANAGER Work Phone: Start: 04-13-2024 Ct thorax w/o contra st material Froilan Beal RIPENING ROOM OPERATOR.STAFFING ACCOUNT MANAGER Work Phone: Start: 03-07-2023 Ct thorax w/o contra st material Froilan Beal APRN.STAFFING ACCOUNT MANAGER Work Phone: Start: 12-04-2022 Radiologic exam ches t 2 views Froilan Beal APRN.STAFFING ACCOUNT MANAGER Work Phone: Start: 10-23-2022 Radiologic exam ches t 2 views Afia Cisneros MD, PhD Work Phone: Start: 10-11-2022 Ct thorax w/contrast material Afia Cisneros MD, PhD Work Phone: Start: 10-11-2022 Myocardial spect mul tiple studies Afia Cisneros MD, PhD Work Phone: Start: 08-30-2022 Pulmonary stress testing Afia Cisneros MD, PhD Work Phone: Start: 08-30-2022 Co diffusing capacity S leno Cisneros MD, PhD Work Phone: Start: 08-17-2022 Plain chest X-ray Dr. Madi vAila Work Phone: Start: 08-17-2022 Plain chest X-ray Dr. Madi Avila Work Phone: Start: 08-17-2022 Biopsy/Inj or Needle Placement Dr. Nataliya Avila Work Phone: Start: 06-27-2022 [facility] incl fluor g dnce dx w/cell washg spx Francisco Sibilia Work Phone: Start: 06-27-2022 Prothrombin time Dalila Morris MD Work Phone: Start: 05-30-2022 Positron emission tomography with computed tomography Dr. Nataliya Avila Work Phone: Start: 05-13-2022 Plain chest X-ray Start: 05-13-2022 Computed tomography of abdomen and pelvis with intravenous contrast Start: 03-14-2022 CT of chest without contrast Start: 01-15-2022 Computed tomography of abdomen and pelvis with contrast Start: 11-01-2020 Colonoscopy Melly schmitt MD Work Phone: Start: 10-25-2019 Adult depression screening assessment Melly Michele MD Work Phone: Start: 07-20-2019 H/O: surgery S/P ileal conduit Crystal Michele MD Work Phone: Anaerobic microbial culture Dr. Nataliya Avila Work Phone: Bacteria identified in Blood by Culture Dr. Nataliya Avila Work Phone: Bacteria identified in Urine by Culture H/O: surgery S/P ileal condui t (HCC) Melly Michele MD Work Phone: Investigation of transfusion reaction Dr. Nataliya Avila Work Phone: Microbial culture, routine Dr. Nataliya Avila Work Phone: Urine culture Dr. Nataliya abarca Work Phone: Urine culture Urine culture Viral antigen assay Plan of Treatment Date Care Activity Detail Author Start: 09-23-2032 Urine microalbumin profile DTaP,Tdap,Td Vaccine (2 - Td or Tdap) [facility] Start: 11-01-2030 Colonoscopy COLONOSCOPY [facility] Start: 11-01-2030 COLORECTAL CANCER SCREENING COLORECTAL CANCER SCREENING [facility] Start: 10-16-2025 DIABETES SCREEN DIABETES SCREEN [facility] Start: 10-16-2025 Diabetes Screening Diabetes Screenin g [facility] Start: 10-11-2025 DIABETES SCREEN DIABETES SCREEN [facility] Start: 05-21-2025 DIABETES SCREEN DIABETES SCREEN [facility] Start: 05-02-2025 DIABETES SCREEN DIABETES SCREEN [facility] Start: 04-18-2025 DIABETES SCREEN DIABETES SCREEN [facility] Start: 02-08-2025 DIABETES SCREEN DIABETES SCREEN [facility] Start: 10-16-2024 End: 10-16-2024 Follow-up encounter 10/16/2024 2:00 PM EST [facility] [address] [place] [address] Radha Beal M, RIPENING ROOM OPERATOR.STAFFING ACCOUNT MANAGER [address] [place] [address] Thoracic Clinic Comment on above: 6 months follow up w johnson CT Start: 09-30-2024 Advance Directive Discussion Advance Directive Discussion [facility] Start: 05-31-2024 Covid-19 Vaccine ( season) Covid-19 Vaccine () [facility] Start: 05-31-2024 Influenza vaccination Influenza Vacc ine (#1) [facility] Start: 04-15-2024 End: 04-15-2024 Patient encounter procedure 04/15/2024 11:30 AM EDT [facility] Thoracic [facility] [address] [place] [address] Radha Beal M, RIPENING ROOM OPERATOR.STAFFING ACCOUNT MANAGER [address] [place] [address] PHONE VISITMalignant neoplasm of unspecified part of unspecified bronchus or lung Thoracic Clinic Comment on above: PHONE VISITMalignant neoplasm of unspecified part of unspecified bronchus or lung Start: 10-11-2023 Influenza vaccination LUNG CANCER SC PRITINING [facility] Start: 09-30-2023 Advance Directive Discussion Advance Directive Discussion [facility] Start: 09-30-2023 Behavioral Health Screening Behavioral Health Screening [facility] Start: 07-06-2023 BP CONTROLLED (<130/80) BP CONTROLLE D (<130/80) [facility] Start: 06-21-2023 BP CONTROLLED (<130/80) BP CONTROLLE D (<130/80) [facility] Start: 05-31-2023 Covid-19 Vaccine () Covid-19 Vaccine () [facility] Start: 05-31-2023 Influenza vaccination Influenza Vacc ine (#1) [facility] Start: 05-30-2023 BP CONTROLLED (<130/80) BP CONTROLLE D (<130/80) [facility] Start: 10-25-2022 DIABETES SCREEN DIABETES SCREEN [facility] Start: 09-30-2022 ADVANCE DIRECTIVE DISCUSSION ADVANCE DIRECTIVE DISCUSSION [facility] Start: 09-30-2022 DEPRESSION ASSESSMENT DEPRESSION ASS ESSMENT [facility] Start: 08-17-2022 CORE NDL BX LNG/MED PERQ CORE NDL BX LNG/MED PERQ [facility] Start: 08-17-2022 Vital signs measurements [facility] Start: 08-17-2022 Catheterization of vein [facility] Start: 08-17-2022 Oxygen therapy [facility] Start: 08-17-2022 Patient discharge [facility] Start: 08-17-2022 Vital signs measurements [facility] Start: 08-17-2022 Following clinical pathway protocol [facility] Start: 06-19-2022 End: 10-19-2022 SARS-CoV-2 (COVID-19) RNA [Presence] in Respiratory specimen by CHAR with probe detection INTERMEDIATE RAPID COVID Microbiology Routine Pre-op chest exam Expected: 06/19/2022, Expires: 10/19/2022 [facility] Work Phone: Comment on above: Expected: 06/19/2022 , Expires: 10/19/2022 Start: 2022 RSV Vaccine (1 - 1-d ose 75+ series) RSV Vaccine (1 - 1-dose 75+ series) [facility] Start: 05-31-2022 Influenza vaccination INFLUENZA (#1) [facility] Start: 05-18-2022 Patient discharge [facility] Work Phone: Start: 05-16-2022 Bedrest [facility] Work Phone: Start: 05-15-2022 Care planning and pr oblem solving actions [facility] Work Phone: Start: 05-14-2022 Consultation for treatment [facility] Work Phone: Start: 05-13-2022 Application of intermittent pneumatic compression device [facility] Work Phone: Start: 05-13-2022 Following clinical pathway protocol [facility] Work Phone: Start: 05-13-2022 Assessment of risk o f venous thromboembolism [facility] Work Phone: Start: 05-13-2022 Incentive spirometry [facility] Work Phone: Start: 05-13-2022 Inhalation therapy procedure [facility] Work Phone: Start: 05-13-2022 Insertion of cathete r into peripheral vein [facility] Work Phone: Start: 05-13-2022 Measuring intake and output [facility] Work Phone: Start: 05-13-2022 Notification of physician [facility] Work Phone: Start: 05-13-2022 Patient referral to dietitian [facility] Work Phone: Start: 05-13-2022 Providing care accor ding to standard [facility] Work Phone: Start: 05-13-2022 Provision of activit y privileges [facility] Work Phone: Start: 05-13-2022 Referral to general surgeon [facility] Work Phone: Start: 05-13-2022 Referral to occupati onal therapist [facility] Work Phone: Start: 05-13-2022 Referral to service [facility] Work Phone: Start: 05-13-2022 [facility] Work Phone: Start: 05-13-2022 Verification routine [facility] Work Phone: Start: 05-13-2022 Admission procedure [facility] Work Phone: Start: 05-13-2022 End: 05-13-2022 [facility] Work Phone: Start: 05-13-2022 End: 05-13-2022 Blood culture [facility] Work Phone: Start: 05-13-2022 Patient referral to dietitian [facility] Work Phone: Start: 01-12-2022 COVID-19 VACCINE (4 - Booster for Moderna series) COVID-19 VACCINE (4 - Booster for Moderna series) [facility] Start: 11-08-2021 COVID-19 VACCINE (4 - Booster for Moderna series) COVID-19 VACCINE (4 - Booster for Moderna series) [facility] Start: 09-30-2021 ADVANCE DIRECTIVE DISCUSSION ADVANCE DIRECTIVE DISCUSSION [facility] Start: 09-30-2021 DEPRESSION ASSESSMENT DEPRESSION ASS ESSMENT [facility] Start: 10-25-2020 Adult depression screening assessment DEPRESSION SCREENING [facility] Start: 2012 Pneumococcal Vaccine : 65+ (1 - PCV) Pneumococcal Vaccine: 65+ (1 - PCV) [facility] Start: 2012 Pneumococcal Vaccine : 65+ (1 of 1 - PCV) Pneumococcal Vaccine: 65+ (1 of 1 - PCV) [facility] Start: 2012 PNEUMOCOCCAL: 65+ (1 - PCV) PNEUMOCOCCAL: 65+ (1 - PCV) [facility] Start: 2012 PNEUMOVAX AGE 65 AND OVER WITH 5YR LOOKBACK (#1) PNEUMOVAX AGE 65 AND OVER WITH 5YR LOOKBACK (#1) [facility] Start: 2007 RSV Vaccine (1 - 1-d ose 60+ series) RSV Vaccine (1 - 1-dose 60+ series) [facility] Start: 2002 Influenza vaccination LUNG CANCER [facility] Start: 1997 Influenza vaccination LUNG CANCER [facility] Start: 1997 Pneumococcal Vaccine : 50+ (1 of 1 - PCV) Pneumococcal Vaccine: 50+ (1 of 1 - PCV) [facility] Start: 1997 SHINGRIX VACCINE (1 of 2) PALAFOX GRIX VACCINE (1 of 2) [facility] Start: 1992 COLOGUARD (FIT-DNA) COLOGUARD (FIT-D NA) [facility] Start: [address] COLONOGRAPHY [facility] Start: 1992 FECAL OCCULT BLOOD FECAL OCCULT BLOO D [facility] Start: 1992 SIGMOIDOSCOPY SIGMOIDOSCOPY [facility] Start: 1982 LIPID SCREEN LIPID SCREEN [facility] Start: 1966 SHINGRIX VACCINE (1 of 2) PALAFOX GRIX VACCINE (1 of 2) [facility] Start: 1966 Urine microalbumin profile [facility] Start: 1965 ANNUAL PCP TEAM DIRECTOR OF RECRUITMENT JODY DISEASE VISIT ANNUAL PCP TEAM CHRONIC DISEASE VISIT [facility] Start: 1965 Anxiety Screening Anxiety Screening [facility] Start: 1965 BP CONTROLLED (<130/80) BP CONTROLLE D (<130/80) [facility] Start: 1965 Depression Screening Depression Scre ening [facility] Start: 1965 HEPATITIS C SCREENING HEPATITIS C [facility] Start: 1965 Hepatitis C screening Hepatitis C [facility] Start: 1953 PNEUMOCOCCAL: 65+ (1 - PCV) PNEUMOCOCCAL: 65+ (1 - PCV) [facility] Start: 1947 ABDOMINAL AORTIC ANE URYSM SCREENING [facility] Work [facility]: Bacteria identified in Blood by Culture Blood Culture [facility] Work Phone: Bacteria identified in Unspecified specimen by Anaerobe culture [facility] Work Phone: Bacteria identified in Urine by Culture Urine Culture [facility] Work Phone: Blood culture [facility] Work Phone: End: 05-15-2025 CT Chest WO contrast CT CHEST WO IVCON Radiology Routine Malignant neoplasm of unspecified part of unspecified bronchus or lung (HCC) 1 Occurrences starting 04/15/2024 until 05/15/2025 [facility] Work Phone: Comment on above: 1 Occurrences starti ng 04/15/2024 until 05/15/2025 End: 11-15-2025 CT Chest WO contrast CT CHEST WO IVCON Radiology Routine Malignant neoplasm of unspecified part of unspecified bronchus or lung (HCC) 1 Occurrences starting 10/16/2024 until 11/15/2025 [facility] Work Phone: Comment on above: 1 Occurrences starti ng 10/16/2024 until 11/15/2025 End: 01-04-2024 Ct thorax w/o contrast material CT CHEST WO IVCON Radiology Routine Malignant neoplasm of unspecified part of unspecified bronchus or lung (HCC) 1 Occurrences starting 12/05/2022 until 01/04/2024 [facility] Work Phone: Comment on above: 1 Occurrences starti ng 12/05/2022 until 01/04/2024 CYTOLOGY NON-VERIFICATION LEAD [facility] Work Phone: Comment on above: Release Upon Orderin g for 1 Occurrences starting 06/27/2022, 1 completed LUNG DIFFUSION CAPAC ITY (DLCO) LUNG DIFFUSION CAPACITY (DLCO) PFT EDMAR Lung nodule 08/30/2022 2:48 PM EST [facility] Work Phone: Microscopic observat ion [Identifier] in Unspecified specimen by Gram stain Gram Stain [facility] Work Phone: End: 03-04-2023 Mri abdomen w/o & w/contrast material MRI ABDOMEN WO/W IVCON Radiology Routine Enterocutaneous fistula S/P ileal conduit (HCC) History of bladder cancer Incisional hernia, without obstruction or gangrene 1 Occurrences starting 02/02/2022 until 03/04/2023 [facility] Work Phone: Comment on above: 1 Occurrences starti ng 02/02/2022 until 03/04/2023 End: 03-04-2023 Mri pelvis w/o & w/contrast material MRI PELVIS WO/W IVCON Radiology Routine Enterocutaneous fistula S/P ileal conduit (HCC) History of bladder cancer Incisional hernia, without obstruction or gangrene 1 Occurrences starting 02/02/2022 until 03/04/2023 [facility] Work Phone: Comment on above: 1 Occurrences starti ng 02/02/2022 until 03/04/2023 Patient Education RAD RN Dischar ge Instructions Needle Biopsy: Lung ED Procedural Sedation, (Adult) [facility] Work Phone: Patient referral [facility] Work Phone: End: 11-22-2023 Radiologic exam chest 2 views XR CHEST 2V FRONTAL/LAT Radiology Routine Malignant neoplasm of lower lobe of left lung (HCC) 1 Occurrences starting 10/23/2022 until 11/22/2023 [facility] Work Phone: Comment on above: 1 Occurrences starti ng 10/23/2022 until 11/22/2023 SIX MINUTE WALK SIX MINUTE WALK PFT Routine Lung nodule 08/30/2022 3:52 PM [facility] Work Phone: SPIROMETRY BASELINE ONLY SPIROME TRY BASELINE ONLY PFT EDMAR Lung nodule 08/30/2022 2:48 PM [facility] Work Phone: URINALYSIS, REFLEX MICROSCOPIC URINALYSIS, REFLEX MICROSCOPIC Lab Routine Screening for genitourinary condition Ordered: 03/21/2022 [facility] Work Phone: Comment on above: Ordered: 03/21/2022 Wound Culture Wound Culture [facility] Work Phone: [facility] Immunizations Immunization Date Immunization Notes Care Provider Javi arnold 06-28-2023 influenza virus vaccine, unspecified formulation Ct (I-Stat) Work Phone: [facility] 07-27-2022 influenza virus vaccine, unspecified formulation Ct (I-Stat) Work Phone: [facility] 09-13-2021 Covid (Moderna) Dr. Nataliya Avila Work Phone: [facility] 07-13-2021 influenza, seasonal, injectable Dr. Nataliya Avila Work Phone: [facility] 12-26-2020 Covid (Moderna) [facility] 11-28-2020 Covid (Moderna) [facility] NEGATED: Highlighted row has not occurred!04-29-2022 COVID-19 vaccine, age 12+ yr ([employer] [place] [employer]) Terrell Nathan Work Phone: [facility] Comment on above: Deferred: Patient Re fused Payers Date Payer Category Payer Private Health Insurance [facility] AARP SUPPLEMENT [id number] 2018-Present [phone] [address] [place] [address] Indemnity [id number] [address] [facility] AARP SUPPLEMENT [id number] 2018-Present [phone] [address] [place] [address] Indemnity [id number] 2018 Self-pay 2018 Unknown [id number] 1999 Medicare MEDICARE MEDICAR E A AND B [id number] 1999-Present [phone] [place] [address] Medicare [id number] 1999 Medicare MEDICARE MEDICAR E A AND B [id number] 1999-Present [phone] [place] [address] Medicare [id number] 1997 Medicare [id number] 1989 Medicare [id number] 1945 Unknown [id number] Unknown [id number] Unknown [id number] Unknown [id number] Unknown [id number] Unknown [id number] Social History Date Type Detail Facility Start: 05-02-2020 End: 08-17-2022 Tobacco smoking status [facility] Unknown if ever smoked [facility] Start: 03-26-2019 None [facility] Start: 08-03-2019 With Family [facility] Start: 10-30-2019 Non-smoker [facility] Start: 1945 Sex Assigned At Male [facility] Start: 04-07-2019 End: 06-25-2022 Tobacco smoking status NHIS Ex-smoker [facility] Start: 04-07-1965 End: 04-07-2015 History of tobacco use Current smoker [facility] Start: [birth year]-07-1965 End: 04-07-2015 History of tobacco use Cigarette Smoker [facility] Start: 04-07-2019 End: 03-08-2023 Cigarettes smoked current (pack per day) - Reported 1 [facility] Work Phone: Start: 04-07-2019 End: 06-25-2022 Tobacco use and exposure User of smokeless tobacco [facility] History of tobacco use [facility] Start: 01-18-2022 End: 10-23-2022 Alcohol intake Ex-drinker (finding) [facility] Start: 1945 Sex Assigned At Not on file [facility] Start: 01-08-2022 End: 08-30-2022 Exposure to SARS-CoV-2 (event) Not sure [facility] Start: 10-16-2022 History SDOH Financial 4 [facility] Start: 10-16-2022 History SDOH Food Worry 1 [facility] Start: 10-16-2022 History SDOH Transpo rt Med 2 [facility] Start: 10-23-2022 End: 03-08-2023 Tobacco use panel [facility] Work Phone: How hard is it for y ou to pay for the very basics like food, housing, medical care, and heating Not very hard [facility] Work Phone: [facility] worried wheth er (my/our) food would run out before (I/we) got money to buy more. Never true [facility] Work Phone: In the past 12 month s, was there a time when you were not able to pay the mortgage or rent on time? No [facility] Work Phone: Goals Date Patient Goal Desired Activity /State Functional Status Date Assessment Result Facility 05-18-2022 Functional status Bedrest [facility] Work Phone: Mental Status Date Assessment Result Facility 08-17-2022 Cognitive function Voice/Name [facility] Work Phone: 05-17-2022 Cognitive function Voice/Name [facility] Work Phone: Clinical Notes 07-31-2019 to 10-16-2024 Radha Beal, RIPENING ROOM OPERATOR.[facility] - 10/16/2024 1:58 PM Jeanie Cardenasly, RT(R) - 10/15/2024 11:20 AM Radha Grissom APRN.STAFFING ACCOUNT MANAGER - 04/15/2024 11:31 AM Abhi Bunn RN - 06/20/2022 4:49 PM EDT Note Date & Type Note Facility 10-16-2024 Note HNO ID: [id number] Author: RADHA BEAL APRN.HARSHAD Service: ? Author Type: Nurse Practitioner Type: Progress Notes Filed: 10/16/2024 14:24 Note Text: Heart, Vascular AND Thoracic [facility] Department of Thoracic Surgery TELEPHONE VISIT (audio only) PROGRESS NOTE This is a telephone encounter initiated for an established patient. The patient, parent or guardian is not originating from a related Evaluation AND Management service provided within the previous 7 days nor leading to an Evaluation AND Management service or procedure within the next 24 hours or soonest available appointment. I have communicated my name and active licensure. The patient's identity and physical location were verified at the time of this visit. Either the patient or their legal player services representative has been informed of the risks and benefits of -- and alternatives to -- treatment through a remote evaluation and consents to proceed with the evaluation remotely. Javier Johnson has consented to this telephone encounter. Persons Present: Patient and patient's spouse/significant other Total Time Spent: 11-20 minutes Radha Beal APRN.STAFFING ACCOUNT MANAGER [facility] - OUTPATIENT THORACIC SURGERY CLINIC NOTE PT NAME: Javier Johnson [facility] NO: [id number] THORACIC SURGEON: Afia Cisneros M.D. DATE OF SERVICE: 10/16/2024 PRINCIPAL DX: Adenocarcinoma pT1bN0 SURGICAL HX: 10/15/2022: Robotic-assisted left lower lobe limited resection/wedge, robotic-assisted mediastinal and hilar lymph node dissection, and robotic-assisted intercostal nerve block Surgical Pathology: FINAL DIAGNOSIS A. Left lung nodule, wedge resection: - Invasive adenocarcinoma, predominantly papillary pattern, 1.7 cm. - Centrilobular emphysema. B. Station 11L lymph node, dissection: - One (1) lymph node, negative for neoplasm. C. Station 7 lymph nodes, dissection: - One (1) lymph node, negative for neoplasm. D. Station 8L lymph node, dissection: - One (1) lymph node, negative for neoplasm. E. Station 9L lymph node, dissection: - One (1) lymph node, negative for neoplasm. CFF/IO 10/16/22 4:36 Diagnosis Comment A movat pentachrome stain has been used in the evaluation of the pleural surface and demonstrates no invasion of the pleural elastic by the invasive adenocarcinoma. The lymph nodes in Parts B-E contain non-necrotizing granulomas and black/brown pigment. A GMS stain for fungal organisms and an AFB stain for mycobacteria will be performed and the results reported as an addendum. Synoptic Report LUNG 8th Edition - Protocol posted: 04/25/2021 LUNG, RESECTION - All Specimens SPECIMEN Procedure Wedge resection Specimen Laterality Left TUMOR Tumor Focality Single focus Tumor Site Lower lobe of lung Tumor Size Total Tumor Size (size of entire tumor) Greatest Dimension (Centimeters): 1.7 cm Histologic Type Invasive papillary adenocarcinoma Histologic Patterns Present Acinar: 15 Papillary: 80 Micropapillary: 5 Histologic Grade G2, moderately differentiated Visceral Pleura Invasion Not identified Direct Invasion of Adjacent Structures Not identified Treatment Effect No known presurgical therapy Lymphovascular Invasion Not identified MARGINS Margin Status for Invasive Carcinoma All margins negative for invasive carcinoma Closest Margin(s) to Invasive Carcinoma Parenchymal Distance from Invasive Carcinoma to Closest Margin 1.8 cm Margin Status for Non-Invasive Tumor Not applicable REGIONAL LYMPH NODES Lymph Node(s) from Prior Procedures No known prior lymph node sampling performed Regional Lymph Node Status All regional lymph nodes negative for tumor Number of Lymph Nodes Examined 4 [place] Site(s) Examined 7: Subcarinal 8L: Para-esophageal 9L: Pulmonary ligament 11L: Interlobar PATHOLOGIC STAGE CLASSIFICATION (pTNM, AJCC 8th Edition) The suffix m (or a specific number) should only be used in the setting of multifocal ground-glass / lepidic nodules that histologically present as adenocarcinomas with prominent lepidic component or multifocal tumors of same histologic type that are too numerous for individual separate synoptic report and that are not better classified as intrapulmonary metastases (e.g. numerous carcinoid tumors). Multiple primary lung cancers showing different histologic type or different morphology based on comprehensive histologic subtyping are better staged as independent tumors without m suffix. pT Category pT1b pN Category pN0 ADDITIONAL FINDINGS Additional Findings None identified REASON FOR VISIT: Metastatic Surveillance HPI: Javier Johnson is a now 79 year old male with a a PMH of Afib (Warfarin), CVA, bladder cancer s/p cystectomy, colostomy with several fistula takedown procedures, LLL (NSCLC). He was taken to the OR with Dr Cisneros on 10/15/2022 and underwent a robotic assisted left lower (more content not included)... [facility] 10-16-2024 History of Present illness Narrative Heart, Vascular & Thoracic [facility] Department of Thoracic Surgery TELEPHONE VISIT (audio only) PROGRESS NOTE This is a telephone encounter initiated for an established patient. The patient, parent or guardian is not originating from a related Evaluation & Management service provided within the previous 7 days nor leading to an Evaluation & Management service or procedure within the next 24 hours or soonest available appointment. I have communicated my name and active licensure. The patient's identity and physical location were verified at the time of this visit. Either the patient or their legal player services representative has been informed of the risks and benefits of -- and alternatives to -- treatment through a remote evaluation and consents to proceed with the evaluation remotely. Javier Johnson has consented to this telephone encounter. Persons Present: Patient and patient's spouse/significant other Total Time Spent: 11-20 minutes Radha Beal APRN.[facility] - OUTPATIENT THORACIC SURGERY CLINIC NOTE PT NAME: Javier Johnson [facility] NO: [id number] THORACIC SURGEON: Afia Cisneros M.D. DATE OF SERVICE: 10/16/2024 PRINCIPAL DX: Adenocarcinoma pT1bN0 SURGICAL HX: 10/15/2022: Robotic-assisted left lower lobe limited resection/wedge, robotic-assisted mediastinal and hilar lymph node dissection, and robotic-assisted intercostal nerve block Surgical Pathology: FINAL DIAGNOSIS A. Left lung nodule, wedge resection: - Invasive adenocarcinoma, predominantly papillary pattern, 1.7 cm. - Centrilobular emphysema. B. Station 11L lymph node, dissection: - One (1) lymph node, negative for neoplasm. C. Station 7 lymph nodes, dissection: - One (1) lymph node, negative for neoplasm. D. Station 8L lymph node, dissection: - One (1) lymph node, negative for neoplasm. E. Station 9L lymph node, dissection: - One (1) lymph node, negative for neoplasm. CFF/IO 10/16/22 4:36 Diagnosis Comment A movat pentachrome stain has been used in the evaluation of the pleural surface and demonstrates no invasion of the pleural elastic by the invasive adenocarcinoma. The lymph nodes in Parts B-E contain non-necrotizing granulomas and black/brown pigment. A GMS stain for fungal organisms and an AFB stain for mycobacteria will be performed and the results reported as an addendum. Synoptic Report LUNG 8th Edition - Protocol posted: 04/25/2021 LUNG, RESECTION - All Specimens SPECIMEN Procedure Wedge resection Specimen Laterality Left TUMOR Tumor Focality Single focus Tumor Site Lower lobe of lung Tumor Size Total Tumor Size (size of entire tumor) Greatest Dimension (Centimeters): 1.7 cm Histologic Type Invasive papillary adenocarcinoma Histologic Patterns Present Acinar: 15 Papillary: 80 Micropapillary: 5 Histologic Grade G2, moderately differentiated Visceral Pleura Invasion Not identified Direct Invasion of Adjacent Structures Not identified Treatment Effect No known presurgical therapy Lymphovascular Invasion Not identified MARGINS Margin Status for Invasive Carcinoma All margins negative for invasive carcinoma Closest Margin(s) to Invasive Carcinoma Parenchymal Distance from Invasive Carcinoma to Closest Margin 1.8 cm Margin Status for Non-Invasive Tumor Not applicable REGIONAL LYMPH NODES Lymph Node(s) from Prior Procedures No known prior lymph node sampling performed Regional Lymph Node Status All regional lymph nodes negative for tumor Number of Lymph Nodes Examined 4 Sangeeta Site(s) Examined 7: Subcarinal 8L: Para-esophageal 9L: Pulmonary ligament 11L: Interlobar PATHOLOGIC STAGE CLASSIFICATION (pTNM, AJCC 8th Edition) The suffix m (or a specific number) should only be used in the setting of multifocal ground-glass / lepidic nodules that histologically present as adenocarcinomas with prominent lepidic component or multifocal tumors of same histologic type that are too numerous for individual separate synoptic report and that are not better classified as intrapulmonary metastases (e.g. numerous carcinoid tumors). Multiple primary lung cancers showing different histologic type or different morphology based on comprehensive histologic subtyping are better staged as independent tumors without m suffix. pT Category pT1b pN Category pN0 ADDITIONAL FINDINGS Additional Findings None identified REASON FOR VISIT: Metastatic Surveillance HPI: Javier Johnson is a now 79 year old male with a a PMH of Afib (Warfarin), CVA, bladder cancer s/p cystectomy, colostomy with several fistula takedown procedures, LLL (NSCLC). He was taken to the OR with Dr Cisneros on 10/15/2022 and underwent a robotic assisted left lower lobe wedge resection. Discharged 10/16/2022. Coumadin held until seen in thoracic clinic for high risk of bleeding REVIEW OF SYSTEMS PAIN ASSESSMENT: Denies any pain GENERAL: Reports weight is stable RESPIRATORY: Denies dyspnea, wheezing, hemoptysis or cough CARDIOVASCULAR: Denies chest pain or palpitations GI: No heartburn or reflux symptoms IMAGING/TESTS: CT Chest 10/15/2024: IMPRESSION: Little change in CT appearance of the chest since 04/13/2024. No evidence of recurrent or metastatic disease is identified. INTERVAL HISTORY: Javier Johnson has a telephone visit following a CT Chest completed locally. He Denies any progressive dyspnea, cough, hemoptysis, wheezing, bone pain, weight loss or smoking. CT Chest shows no evidence of new or recurrent diease. Continued surveillance in [address] Chest and telephone visit to follow. Patients states understanding and all questions were answered to satisfaction; will call if new or worsening symptoms occur or if any additional questions arise. IMPRESSION: A now 79 year old year old male s/p robotic-assisted left lower lobe limited resection/wedge, robotic-assisted mediastinal and hilar lymph node dissection, and robotic-assisted intercostal nerve block on 10/15/[address] Cisneros for Adenocarcinoma pT1bN0. STEPHANIE. PLAN: - CT Chest locally ([place]), telephone to follow in 1 year Radha Beal APRN.STAFFING ACCOUNT MANAGER Part of this note was copied from previous note, all content has been individually reviewed, updated as necessary, and thoroughly reviewed. documented in this encounter [facility] 10-15-2024 History of Present illness Narrative Radiology Service Progress Note PATIENT NAME: Javier Johnson DATE OF SERVICE: October 15, 2024 TIME: 3:12 PM PATIENT IDENTITY VERIFICATION COMPLETED USING TWO (2) IDENTIFIERS: Name and Date of confirmed by patient verbally. FALL SCREENING: Has the patient had 2 falls in the last year or 1 fall with injury or currently using an Ambulatory Assistive Device (Walker, Cane, Wheelchair, Crutches, etc.)? No PATIENT GENDER DATA: Assigned male at PATIENT RELEVANT IMPLANT DATA REVIEWED: Yes PATIENT PRESENTS WITH AN IMPLANTABLE OR ATTACHED [employer] FACER: No RADIOLOGY DEPARTMENT: CT; Exam(s) Completed: Chest PERIPHERAL IV DATA: Not applicable SIGNED BY: RT Anupam(Zane) October 15, 2024 3:12 PM documented in this encounter [facility] 10-15-2024 Note HNO ID: [id number] Author: MIKAELA ANDERSON RT(R) Service: ? Author Type: Vegetable Farmworker Type: Progress Notes Filed: 10/15/2024 15:13 Note Text: Radiology Service Progress Note PATIENT NAME: Javier Johnson DATE OF SERVICE: October 15, 2024 TIME: 3:12 PM PATIENT IDENTITY VERIFICATION COMPLETED USING TWO (2) IDENTIFIERS: Name and Date of confirmed by patient verbally. FALL SCREENING: Has the patient had 2 falls in the last year or 1 fall with injury or currently using an Ambulatory Assistive Device (Walker, Cane, Wheelchair, Crutches, etc.)? No PATIENT GENDER DATA: Assigned male at PATIENT RELEVANT IMPLANT DATA REVIEWED: Yes PATIENT PRESENTS WITH AN IMPLANTABLE OR ATTACHED [employer] FACER: No RADIOLOGY DEPARTMENT: CT; Exam(s) Completed: Chest PERIPHERAL IV DATA: Not applicable SIGNED BY: RT Anupam(Zane) October 15, 2024 3:12 PM [facility] 04-15-2024 Note HNO ID: [id number] Author: RADHA BEAL APRN.STAFFING ACCOUNT MANAGER Service: ? Author Type: Nurse Practitioner Type: Progress Notes Filed: 04/15/2024 12:15 Note Text: Heart, Vascular AND Thoracic [facility] Department of Thoracic Surgery TELEPHONE VISIT (audio only) PROGRESS NOTE This is a telephone encounter initiated for an established patient. The patient, parent or guardian is not originating from a related Evaluation AND Management service provided within the previous 7 days nor leading to an Evaluation AND Management service or procedure within the next 24 hours or soonest available appointment. I have communicated my name and active licensure. The patient's identity and physical location were verified at the time of this visit. Either the patient or their legal player services representative has been informed of the risks and benefits of -- and alternatives to -- treatment through a remote evaluation and consents to proceed with the evaluation remotely. Javier Johnson has consented to this telephone encounter. Persons Present: Patient and patient's spouse/significant other Total Time Spent: 11-20 minutes Radha Beal APRN.[facility] - OUTPATIENT THORACIC SURGERY CLINIC NOTE PT NAME: Javier Johnson [facility] NO: [id number] THORACIC SURGEON: Afia Cisneros M.D. DATE OF SERVICE: 04/15/2024 PRINCIPAL DX: Adenocarcinoma pT1bN0 SURGICAL HX: 10/15/2022: Robotic-assisted left lower lobe limited resection/wedge, robotic-assisted mediastinal and hilar lymph node dissection, and robotic-assisted intercostal nerve block Surgical Pathology: FINAL DIAGNOSIS A. Left lung nodule, wedge resection: - Invasive adenocarcinoma, predominantly papillary pattern, 1.7 cm. - Centrilobular emphysema. B. Station 11L lymph node, dissection: - One (1) lymph node, negative for neoplasm. C. Station 7 lymph nodes, dissection: - One (1) lymph node, negative for neoplasm. D. Station 8L lymph node, dissection: - One (1) lymph node, negative for neoplasm. E. Station 9L lymph node, dissection: - One (1) lymph node, negative for neoplasm. CFF/IO 10/16/22 4:36 Diagnosis Comment A movat pentachrome stain has been used in the evaluation of the pleural surface and demonstrates no invasion of the pleural elastic by the invasive adenocarcinoma. The lymph nodes in Parts B-E contain non-necrotizing granulomas and black/brown pigment. A GMS stain for fungal organisms and an AFB stain for mycobacteria will be performed and the results reported as an addendum. Synoptic Report LUNG 8th Edition - Protocol posted: 04/25/2021 LUNG, RESECTION - All Specimens SPECIMEN Procedure Wedge resection Specimen Laterality Left TUMOR Tumor Focality Single focus Tumor Site Lower lobe of lung Tumor Size Total Tumor Size (size of entire tumor) Greatest Dimension (Centimeters): 1.7 cm Histologic Type Invasive papillary adenocarcinoma Histologic Patterns Present Acinar: 15 Papillary: 80 Micropapillary: 5 Histologic Grade G2, moderately differentiated Visceral Pleura Invasion Not identified Direct Invasion of Adjacent Structures Not identified Treatment Effect No known presurgical therapy Lymphovascular Invasion Not identified MARGINS Margin Status for Invasive Carcinoma All margins negative for invasive carcinoma Closest Margin(s) to Invasive Carcinoma Parenchymal Distance from Invasive Carcinoma to Closest Margin 1.8 cm Margin Status for Non-Invasive Tumor Not applicable REGIONAL LYMPH NODES Lymph Node(s) from Prior Procedures No known prior lymph node sampling performed Regional Lymph Node Status All regional lymph nodes negative for tumor Number of Lymph Nodes Examined 4 [place] Site(s) Examined 7: Subcarinal 8L: Para-esophageal 9L: Pulmonary ligament 11L: Interlobar PATHOLOGIC STAGE CLASSIFICATION (pTNM, AJCC 8th Edition) The suffix m (or a specific number) should only be used in the setting of multifocal ground-glass / lepidic nodules that histologically present as adenocarcinomas with prominent lepidic component or multifocal tumors of same histologic type that are too numerous for individual separate synoptic report and that are not better classified as intrapulmonary metastases (e.g. numerous carcinoid tumors). Multiple primary lung cancers showing different histologic type or different morphology based on comprehensive histologic subtyping are better staged as independent tumors without m suffix. pT Category pT1b pN Category pN0 ADDITIONAL FINDINGS Additional Findings None identified REASON FOR VISIT: Metastatic Surveillance HPI: Javier Johnson is a 78 year old male with a a PMH of Afib (Warfarin), CVA, bladder cancer s/p cystectomy, colostomy with several fistula takedown procedures, LLL (NSCLC). He was taken to the OR with Dr Cisneros on 10/15/2022 and underwent a robotic assisted left lower lobe (more content not included)... [facility] 04-15-2024 History of Present illness Narrative Heart, Vascular & Thoracic [facility] Department of Thoracic Surgery TELEPHONE VISIT (audio only) PROGRESS NOTE This is a telephone encounter initiated for an established patient. The patient, parent or guardian is not originating from a related Evaluation & Management service provided within the previous 7 days nor leading to an Evaluation & Management service or procedure within the next 24 hours or soonest available appointment. I have communicated my name and active licensure. The patient's identity and physical location were verified at the time of this visit. Either the patient or their legal player services representative has been informed of the risks and benefits of -- and alternatives to -- treatment through a remote evaluation and consents to proceed with the evaluation remotely. Javier Johnson has consented to this telephone encounter. Persons Present: Patient and patient's spouse/significant other Total Time Spent: 11-20 minutes Radha Beal APRN.[facility] - OUTPATIENT THORACIC SURGERY CLINIC NOTE PT NAME: Javier Johnson [facility] NO: [id number] THORACIC SURGEON: Afia Cisneros M.D. DATE OF SERVICE: 04/15/2024 PRINCIPAL DX: Adenocarcinoma pT1bN0 SURGICAL HX: 10/15/2022: Robotic-assisted left lower lobe limited resection/wedge, robotic-assisted mediastinal and hilar lymph node dissection, and robotic-assisted intercostal nerve block Surgical Pathology: FINAL DIAGNOSIS A. Left lung nodule, wedge resection: - Invasive adenocarcinoma, predominantly papillary pattern, 1.7 cm. - Centrilobular emphysema. B. Station 11L lymph node, dissection: - One (1) lymph node, negative for neoplasm. C. Station 7 lymph nodes, dissection: - One (1) lymph node, negative for neoplasm. D. Station 8L lymph node, dissection: - One (1) lymph node, negative for neoplasm. E. Station 9L lymph node, dissection: - One (1) lymph node, negative for neoplasm. CFF/IO 10/16/22 4:36 Diagnosis Comment A movat pentachrome stain has been used in the evaluation of the pleural surface and demonstrates no invasion of the pleural elastic by the invasive adenocarcinoma. The lymph nodes in Parts B-E contain non-necrotizing granulomas and black/brown pigment. A GMS stain for fungal organisms and an AFB stain for mycobacteria will be performed and the results reported as an addendum. Synoptic Report LUNG 8th Edition - Protocol posted: 04/25/2021 LUNG, RESECTION - All Specimens SPECIMEN Procedure Wedge resection Specimen Laterality Left TUMOR Tumor Focality Single focus Tumor Site Lower lobe of lung Tumor Size Total Tumor Size (size of entire tumor) Greatest Dimension (Centimeters): 1.7 cm Histologic Type Invasive papillary adenocarcinoma Histologic Patterns Present Acinar: 15 Papillary: 80 Micropapillary: 5 Histologic Grade G2, moderately differentiated Visceral Pleura Invasion Not identified Direct Invasion of Adjacent Structures Not identified Treatment Effect No known presurgical therapy Lymphovascular Invasion Not identified MARGINS Margin Status for Invasive Carcinoma All margins negative for invasive carcinoma Closest Margin(s) to Invasive Carcinoma Parenchymal Distance from Invasive Carcinoma to Closest Margin 1.8 cm Margin Status for Non-Invasive Tumor Not applicable REGIONAL LYMPH NODES Lymph Node(s) from Prior Procedures No known prior lymph node sampling performed Regional Lymph Node Status All regional lymph nodes negative for tumor Number of Lymph Nodes Examined 4 [place] Site(s) Examined 7: Subcarinal 8L: Para-esophageal 9L: Pulmonary ligament 11L: Interlobar PATHOLOGIC STAGE CLASSIFICATION (pTNM, AJCC 8th Edition) The suffix m (or a specific number) should only be used in the setting of multifocal ground-glass / lepidic nodules that histologically present as adenocarcinomas with prominent lepidic component or multifocal tumors of same histologic type that are too numerous for individual separate synoptic report and that are not better classified as intrapulmonary metastases (e.g. numerous carcinoid tumors). Multiple primary lung cancers showing different histologic type or different morphology based on comprehensive histologic subtyping are better staged as independent tumors without m suffix. pT Category pT1b pN Category pN0 ADDITIONAL FINDINGS Additional Findings None identified REASON FOR VISIT: Metastatic Surveillance HPI: Javier Johnson is a 78 year old male with a a PMH of Afib (Warfarin), CVA, bladder cancer s/p cystectomy, colostomy with several fistula takedown procedures, LLL (NSCLC). He was taken to the OR with Dr Cisneros on 10/15/2022 and underwent a robotic assisted left lower lobe wedge resection. Discharged 10/16/2022. Coumadin held until seen in thoracic clinic for high risk of bleeding. May resume 10/22/2022. REVIEW OF SYSTEMS PAIN ASSESSMENT: Denies any pain GENERAL: No unintentional weight loss RESPIRATORY: Denies dyspnea, wheezing, hemoptysis. Has a cough on occasion - non productive CARDIOVASCULAR: Denies chest pain or palpitations GI: No heartburn or reflux symptoms IMAGING/TESTS: CT Chest 04/13/2024: IMPRESSION: Stable postsurgical changes of left lower lobe wedge resection without evidence of recurrent neoplasm. No new or enlarging lung nodules or thoracic lymphadenopathy. INTERVAL HISTORY: Javier Johnson has a telephone visit following a CT scan completed locally. He Denies any progressive dyspnea, cough, hemoptysis, wheezing, bone pain, weight loss or smoking. CT Chest shows no evidence of new or recurrent diease. Continued surveillance in [address] Chest and VV to follow. Patients states understanding and all questions were answered to satisfaction; will call if new or worsening symptoms occur or if any additional questions arise. IMPRESSION: 78 year old year old male s/p robotic-assisted left lower lobe limited resection/wedge, robotic-assisted mediastinal and hilar lymph node dissection, and robotic-assisted intercostal nerve block on 10/15/[address] Cisneros for Adenocarcinoma pT1bN0. STEPHANIE. PLAN: - CT Chest locally ([facility]), telephone to follow in 6 month Radha Beal APRN.STAFFING ACCOUNT MANAGER Part of this note was copied from previous note, all content has been individually reviewed, updated as necessary, and thoroughly reviewed. documented in this encounter [facility] 04-13-2024 History of Present illness Narrative Radiology Service Progress Note PATIENT NAME: Javier Johnson DATE OF SERVICE: April 13, 2024 TIME: 4:01 PM PATIENT IDENTITY VERIFICATION COMPLETED USING TWO (2) IDENTIFIERS: Name and Date of confirmed by patient verbally. FALL SCREENING: Has the patient had 2 falls in the last year or 1 fall with injury or currently using an Ambulatory Assistive Device (Walker, Cane, Wheelchair, Crutches, etc.)? No PATIENT GENDER DATA: Male PATIENT RELEVANT IMPLANT DATA REVIEWED: Yes PATIENT PRESENTS WITH AN IMPLANTABLE OR ATTACHED GOLF [employer]UB FACER: No RADIOLOGY DEPARTMENT: CT; Exam(s) Completed: Chest PERIPHERAL IV DATA: Not applicable SIGNED BY: RT Anupam(Zane) April 13, 2024 4:01 PM documented in this encounter [facility] 04-13-2024 Note HNO ID: [id number] Author: MIKAELA ANDERSON RT(Zane) Service: ? Author Type: Vegetable Farmworker Type: Progress Notes Filed: 04/13/2024 16:01 Note Text: Radiology Service Progress Note PATIENT NAME: Javier Johnson DATE OF SERVICE: April 13, 2024 TIME: 4:01 PM PATIENT IDENTITY VERIFICATION COMPLETED USING TWO (2) IDENTIFIERS: Name and Date of confirmed by patient verbally. FALL SCREENING: Has the patient had 2 falls in the last year or 1 fall with injury or currently using an Ambulatory Assistive Device (Walker, Cane, Wheelchair, Crutches, etc.)? No PATIENT GENDER DATA: Male PATIENT RELEVANT IMPLANT DATA REVIEWED: Yes PATIENT PRESENTS WITH AN IMPLANTABLE OR ATTACHED GOLF [employer]UB FACER: No RADIOLOGY DEPARTMENT: CT; Exam(s) Completed: Chest PERIPHERAL IV DATA: Not applicable SIGNED BY: RT Anupam(R) April 13, 2024 4:01 PM [facility] 03-07-2023 History of Present illness Narrative Radiology Service Progress Note PATIENT NAME: Javier Johnson DATE OF SERVICE: March 07, 2023 TIME: 1:07 PM PATIENT IDENTITY VERIFICATION COMPLETED USING TWO (2) IDENTIFIERS: Name and Date of confirmed by patient verbally. FALL SCREENING: Has the patient had 2 falls in the last year or 1 fall with injury or currently using an Ambulatory Assistive Device (Walker, Cane, Wheelchair, Crutches, etc.)? No PATIENT GENDER DATA: Male PATIENT RELEVANT IMPLANT DATA REVIEWED: Yes RADIOLOGY DEPARTMENT: CT; Exam(s) Completed: Chest PERIPHERAL IV DATA: Not applicable SIGNED BY: RT Anupam(R) March 07, 2023 1:07 PM documented in this encounter [facility] 12-05-2022 History of Present illness Narrative Heart, Vascular & Thoracic [facility] Department of Thoracic Surgery VIRTUAL VISIT PROGRESS NOTE This is a telephone encounter initiated for an established patient. The patient, parent or guardian is not originating from a related Evaluation & Management service provided within the previous 7 days nor leading to an Evaluation & Management service or procedure within the next 24 hours or soonest available appointment. Javier Johnson has consented to this telephone encounter. Persons Present: patient and patient's spouse/significant other Total Time Spent: 11-20 minutes Radha Beal APRN.[facility] - OUTPATIENT THORACIC SURGERY CLINIC NOTE PT NAME: Javier Johnson CLINIC NO: [id number] THORACIC SURGEON: Afia Cisneros M.D. DATE OF SERVICE: 12/05/2022 PRINCIPAL DX: Adenocarcinoma pT1bN0 SURGICAL HX: 10/15/2022: Robotic-assisted left lower lobe limited resection/wedge, robotic-assisted mediastinal and hilar lymph node dissection, and robotic-assisted intercostal nerve block Surgical Pathology: FINAL DIAGNOSIS A. Left lung nodule, wedge resection: - Invasive adenocarcinoma, predominantly papillary pattern, 1.7 cm. - Centrilobular emphysema. B. Station 11L lymph node, dissection: - One (1) lymph node, negative for neoplasm. C. Station 7 lymph nodes, dissection: - One (1) lymph node, negative for neoplasm. D. Station 8L lymph node, dissection: - One (1) lymph node, negative for neoplasm. E. Station 9L lymph node, dissection: - One (1) lymph node, negative for neoplasm. CFF/IO 10/16/22 4:36 Diagnosis Comment A movat pentachrome stain has been used in the evaluation of the pleural surface and demonstrates no invasion of the pleural elastic by the invasive adenocarcinoma. The lymph nodes in Parts B-E contain non-necrotizing granulomas and black/brown pigment. A GMS stain for fungal organisms and an AFB stain for mycobacteria will be performed and the results reported as an addendum. Synoptic Report LUNG 8th Edition - Protocol posted: 04/25/2021 LUNG, RESECTION - All Specimens SPECIMEN Procedure Wedge resection Specimen Laterality Left TUMOR Tumor Focality Single focus Tumor Site Lower lobe of lung Tumor Size Total Tumor Size (size of entire tumor) Greatest Dimension (Centimeters): 1.7 cm Histologic Type Invasive papillary adenocarcinoma Histologic Patterns Present Acinar: 15 Papillary: 80 Micropapillary: 5 Histologic Grade G2, moderately differentiated Visceral Pleura Invasion Not identified Direct Invasion of Adjacent Structures Not identified Treatment Effect No known presurgical therapy Lymphovascular Invasion Not identified MARGINS Margin Status for Invasive Carcinoma All margins negative for invasive carcinoma Closest Margin(s) to Invasive Carcinoma Parenchymal Distance from Invasive Carcinoma to Closest Margin 1.8 cm Margin Status for Non-Invasive Tumor Not applicable REGIONAL LYMPH NODES Lymph Node(s) from Prior Procedures No known prior lymph node sampling performed Regional Lymph Node Status All regional lymph nodes negative for tumor Number of Lymph Nodes Examined 4 [place] Site(s) Examined 7: Subcarinal 8L: Para-esophageal 9L: Pulmonary ligament 11L: Interlobar PATHOLOGIC STAGE CLASSIFICATION (pTNM, AJCC 8th Edition) The suffix m (or a specific number) should only be used in the setting of multifocal ground-glass / lepidic nodules that histologically present as adenocarcinomas with prominent lepidic component or multifocal tumors of same histologic type that are too numerous for individual separate synoptic report and that are not better classified as intrapulmonary metastases (e.g. numerous carcinoid tumors). Multiple primary lung cancers showing different histologic type or different morphology based on comprehensive histologic subtyping are better staged as independent tumors without m suffix. pT Category pT1b pN Category pN0 ADDITIONAL FINDINGS Additional Findings None identified REASON FOR VISIT: Post-operative visit HPI: Javier Johnson is a 77 year old male with a a PMH of Afib (Warfarin), CVA, bladder cancer s/p cystectomy, colostomy with several fistula takedown procedures, LLL (NSCLC). He was taken to the OR with Dr Cisneros on 10/15/2022 and underwent a robotic assisted left lower lobe wedge resection. Discharged 10/16/2022. Coumadin held until seen in thoracic clinic for high risk of bleeding. May resume 10/22/2022. REVIEW OF SYSTEMS PAIN ASSESSMENT: No pain GENERAL: No weight loss, malaise or fevers RESPIRATORY: Negative for cough, wheezing or dyspnea CARDIOVASCULAR: No chest pain or palpitations GI: No nausea, vomiting, or diarrhea IMAGING/TESTS: CXR 12/04/2022: INTERVAL HISTORY: Javier Johnson has a virtual visit following a CXR of his chest completed locally. He has been doing well. He denies any SOB, fevers, chills. No c/o nausea or vomiting. He has been walking regularly. Notes some dyspnea when pushing himself. CXR shows well expanding lungs. Surveillance to begin in [address] Chest and VV to follow. Patients states understanding and all questions were answered to satisfaction; will call if new or worsening symptoms occur or if any additional questions arise. IMPRESSION: 77 year old year old male s/p robotic-assisted left lower lobe limited resection/wedge, robotic-assisted mediastinal and hilar lymph node dissection, and robotic-assisted intercostal nerve block on 10/15/[address] Cisneros for Adenocarcinoma pT1bN0. PLAN: - CT Chest locally, VV to follow [email or web address] Beal APRN.STAFFING ACCOUNT MANAGER I have communicated my name and active licensure. The patient's identity and physical location were verified at the time of this visit. Either the patient or their legal player services representative has been informed of the risks and benefits of -- and alternatives to -- treatment through a remote evaluation and consents to proceed with the evaluation remotely. documented in this encounter [facility] 10-23-2022 History of Present illness Narrative Images from the original note were not included. [facility] - OUTPATIENT THORACIC SURGERY CLINIC NOTE PT NAME: Javier Carrasquillo [facility] NO: [id number] THORACIC SURGEON: Afia Cisneros M.D. DATE OF SERVICE: October 23, 2022 PRINCIPAL DX: Adenocarcinoma pT1bN0 SURGICAL HX: 10/15/2022: Robotic-assisted left lower lobe limited resection/wedge, robotic-assisted mediastinal and hilar lymph node dissection, and robotic-assisted intercostal nerve block Surgical Pathology: FINAL DIAGNOSIS A. Left lung nodule, wedge resection: - Invasive adenocarcinoma, predominantly papillary pattern, 1.7 cm. - Centrilobular emphysema. B. Station 11L lymph node, dissection: - One (1) lymph node, negative for neoplasm. C. Station 7 lymph nodes, dissection: - One (1) lymph node, negative for neoplasm. D. Station 8L lymph node, dissection: - One (1) lymph node, negative for neoplasm. E. Station 9L lymph node, dissection: - One (1) lymph node, negative for neoplasm. CFF/IO 10/16/22 4:36 Diagnosis Comment A movat pentachrome stain has been used in the evaluation of the pleural surface and demonstrates no invasion of the pleural elastic by the invasive adenocarcinoma. The lymph nodes in Parts B-E contain non-necrotizing granulomas and black/brown pigment. A GMS stain for fungal organisms and an AFB stain for mycobacteria will be performed and the results reported as an addendum. Synoptic Report LUNG 8th Edition - Protocol posted: 04/25/2021 LUNG, RESECTION - All Specimens SPECIMEN Procedure Wedge resection Specimen Laterality Left TUMOR Tumor Focality Single focus Tumor Site Lower lobe of lung Tumor Size Total Tumor Size (size of entire tumor) Greatest Dimension (Centimeters): 1.7 cm Histologic Type Invasive papillary adenocarcinoma Histologic Patterns Present Acinar: 15 Papillary: 80 Micropapillary: 5 Histologic Grade G2, moderately differentiated Visceral Pleura Invasion Not identified Direct Invasion of Adjacent Structures Not identified Treatment Effect No known presurgical therapy Lymphovascular Invasion Not identified MARGINS Margin Status for Invasive Carcinoma All margins negative for invasive carcinoma Closest Margin(s) to Invasive Carcinoma Parenchymal Distance from Invasive Carcinoma to Closest Margin 1.8 cm Margin Status for Non-Invasive Tumor Not applicable REGIONAL LYMPH NODES Lymph Node(s) from Prior Procedures No known prior lymph node sampling performed Regional Lymph Node Status All regional lymph nodes negative for tumor Number of Lymph Nodes Examined 4 [place] Site(s) Examined 7: Subcarinal 8L: Para-esophageal 9L: Pulmonary ligament 11L: Interlobar PATHOLOGIC STAGE CLASSIFICATION (pTNM, AJCC 8th Edition) The suffix m (or a specific number) should only be used in the setting of multifocal ground-glass / lepidic nodules that histologically present as adenocarcinomas with prominent lepidic component or multifocal tumors of same histologic type that are too numerous for individual separate synoptic report and that are not better classified as intrapulmonary metastases (e.g. numerous carcinoid tumors). Multiple primary lung cancers showing different histologic type or different morphology based on comprehensive histologic subtyping are better staged as independent tumors without m suffix. pT Category pT1b pN Category pN0 ADDITIONAL FINDINGS Additional Findings None identified REASON FOR VISIT: First post-operative visit, Survivorship Planning HPI: Javier Johnson is a 77 year old male with a a PMH of Afib (Warfarin), CVA, bladder cancer s/p cystectomy, colostomy with several fistula takedown procedures, LLL (NSCLC). He was taken to the OR with Dr Cisneros on 10/15/2022 and underwent a robotic assisted left lower lobe wedge resection. Discharged 10/16/2022. Coumadin held until seen in thoracic clinic for high risk of bleeding. May resume 10/22/2022. PHYSICAL EXAM: VITAL SIGNS: BP 160/80 Pulse 82 Temp 36.4 C (97.6 F) (Oral) Resp 12 Ht 170.2 cm (5' 7) Wt 77.6 kg (171 lb) SpO2 98% BMI 26.78 kg/m Incision location: Left [place] sites Incision Assessment: Well approximated and no drainage, swelling, erythema or warmth Drain/Tubes: N/A GENERAL: well appearing, alert, no acute distress, well-hydrated, well nourished HEENT: normocephalic, midline, anicteric sclera. LUNGS: clear to auscultation, no wheezing or rhonchi HEART: RRR without murmur ABDOMEN: Soft, non-tender, non distended. No masses EXTREMITIES: No clubbing, cyanosis or edema. MUSCULOSKELETAL: Muscular strength intact. SKIN: turgor normal, no suspicious rashes or lesions NEURO: Gait normal. Sensation grossly intact. IMAGING/TESTS: CXR 10/23/2022: PENDING INTERVAL HISTORY: Javier Johnson returns for first post op visit. He has been doing well. he has had adequate pain management with the use of Tylenol. He denies any SOB, fevers, chills. No c/o nausea or vomiting. He has been tolerating diet and has been moving his bowels regularly. Incisions are healing well and sutures are removed. We have discussed increasing aerobic activity daily, as well as maintaining weight restriction of 5-10 lbs for the first month after surgery. We have also discussed no driving while on narcotics. CXR shows well expanding lungs. Pathology has been reviewed, which showed Adenocarcinoma pT1bN0. He was provided with a copy of his pathology report. Survivorship planning was discussed and he will have CT scans every 6 months for the next 2 years, then every year thereafter for 3 years. He will return in 6 weeks with a CXR. Patients states understanding and all questions were answered to satisfaction; will call if new or worsening symptoms occur or if any additional questions arise. IMPRESSION: 77 year old year old male s/p robotic-assisted left lower lobe limited resection/wedge, robotic-assisted mediastinal and hilar lymph node dissection, and robotic-assisted intercostal nerve block on 10/15/[address] Cisneros for Adenocarcinoma pT1bN0. PLAN: - Resume Coumadin - Increase aerobic activity - Return in 6 weeks with a CXR Radha Yoo APRN.HARSHAD documented in this encounter [facility] 10-23-2022 History of Present illness Narrative Radiology Service Progress Note PATIENT NAME: Javier Johnson DATE OF SERVICE: October 23, 2022 TIME: 12:53 PM PATIENT IDENTITY VERIFICATION COMPLETED USING TWO (2) IDENTIFIERS: Name and Date of confirmed by patient verbally. FALL SCREENING: Has the patient had 2 falls in the last year or 1 fall with injury or currently using an Ambulatory Assistive Device (Walker, Cane, Wheelchair, Crutches, etc.)? No PATIENT GENDER DATA: Male PATIENT RELEVANT IMPLANT DATA REVIEWED: Not Applicable RADIOLOGY DEPARTMENT: General X-ray: Exam(s) Completed: Chest X-Ray PERIPHERAL IV DATA: Not applicable SIGNED BY: RT Erica(R) October 23, 2022 12:53 PM documented in this encounter [facility] 10-11-2022 History of Present illness Narrative Radiology Service Progress Note DATE OF SERVICE: October 11, 2022 TIME: 11:18 AM PATIENT WEIGHT: 172LBS PATIENT IDENTITY VERIFICATION COMPLETED USING TWO (2) STANDARD IDENTIFIERS: Name and Date of confirmed by patient verbally and Name and Date of confirmed by identification band. FALL SCREENING: Has the patient had 2 falls in the last year or 1 fall with injury or currently using an Ambulatory Assistive Device (Walker, Cane, Wheelchair, Crutches, etc.)? No PATIENT GENDER DATA: Male ALLERGIES: Reviewed and unchanged CONTRAST ALLERGY: No EXAM: CT -CONTRAST INDUCED NEPHROPATHY RISK FACTORS: Patient age > 60 years CREATININE: Creatinine Date Value Ref Range Status 10/11/2022 1.28 (H) 0.73 - 1.22 mg/dL Final 05/21/2022 1.20 0.73 - 1.22 mg/dL Final 05/20/2022 1.17 0.73 - 1.22 mg/dL Final Estimated Glomerular Filtration Rate Date Value Ref Range Status 10/11/2022 58 (L) >=60 mL/min/1.73m Final Comment: Estimated Glomerular Filtration Rate (eGFR) is calculated using the 2020 CKD-EPI creatinine equation. This equation utilizes serum creatinine, sex, and age as parameters. The creatinine assay has traceable calibration to isotope dilution-mass spectrometry. Refer to KDIGO guidelines for clinical interpretation. In patients with unstable renal function, e.g. those with acute kidney injury, the eGFR may not accurately reflect actual GFR. eGFR- Date Value Ref Range Status 10/25/2019 >60 Final P.O.C.T. RESULTS: N/A October 11, 2022 TREATMENT: No Hydration needed. IV SITE: Ambulatory: A peripheral IV was started in the Right antecubital site with a Angio cath: 22 gauge. and A Saline lock was inserted per protocol IV SITE APPEARANCE: Clean,Dry and Intact SIGNATURE: Joy Patel RN PATIENT NAME: Javier Johnson DATE: October 11, 2022 TIME: 11:18 AM Radiology Service Progress Note PATIENT NAME: Javier Johnson DATE OF SERVICE: October 11, 2022 TIME: 11:37 AM PATIENT IDENTITY VERIFICATION COMPLETED USING TWO (2) IDENTIFIERS: Name and Date of confirmed by patient verbally and Name and Date of confirmed by identification band. FALL SCREENING: Has the patient had 2 falls in the last year or 1 fall with injury or currently using an Ambulatory Assistive Device (Walker, Cane, Wheelchair, Crutches, etc.)? Yes, Patient High Risk for Falls What interventions were put in place to prevent falls during this visit? Increased Observations by Caregivers PATIENT GENDER DATA: Male PATIENT RELEVANT IMPLANT DATA REVIEWED: Yes RADIOLOGY DEPARTMENT: CT; Exam(s) Completed: Chest PERIPHERAL IV DATA: Site assessment: Clean,Dry and Intact, Site disposition Discontinued SIGNED BY: RT Susanne(Zane) October 11, 2022 11:37 AM documented in this encounter [facility] 10-11-2022 History of Present illness Narrative RADIOLOGY SERVICE PROGRESS NOTE SERVICE DATE: 10/11/2022 SERVICE TIME: 8:18 AM PATIENT IDENTITY VERIFICATION COMPLETED USING TWO (2) STANDARD IDENTIFIERS: Name and Date of confirmed by patient verbally FALL SCREENING: Has the patient had 2 falls in the last year or 1 fall with injury or currently using an Ambulatory Assistive Device (Walker, Cane, Wheelchair, Crutches, etc.)? No PATIENT GENDER DATA: .male ALLERGIES: Reviewed and unchanged MEDICATIONS REVIEWED: Yes PATIENT RELEVANT IMPLANT DATA REVIEWED: Not Applicable CREATININE: Creatinine Date Value Ref Range Status 10/11/2022 1.28 (H) 0.73 - 1.22 mg/dL Final 05/21/2022 1.20 0.73 - 1.22 mg/dL Final 05/20/2022 1.17 0.73 - 1.22 mg/dL Final Estimated Glomerular Filtration Rate Date Value Ref Range Status 10/11/2022 58 (L) >=60 mL/min/1.73m Final Comment: Estimated Glomerular Filtration Rate (eGFR) is calculated using the 2020 CKD-EPI creatinine equation. This equation utilizes serum creatinine, sex, and age as parameters. The creatinine assay has traceable calibration to isotope dilution-mass spectrometry. Refer to KDIGO guidelines for clinical interpretation. In patients with unstable renal function, e.g. those with acute kidney injury, the eGFR may not accurately reflect actual GFR. eGFR- Date Value Ref Range Status 10/25/2019 >60 Final P.O.C.T. RESULTS: N/A October 11, [address] PERFORMED: No IV SITE: Ambulatory: A peripheral IV was started in the Left forearm with a Angio cath: 22 gauge. POST EXAM PIV STATUS: Discontinued PROCEDURE TYPE: WI Stress: 11.0mCi [id number] was administered IV for Rest Imaging at 8:20 by 29.7 mCi [id number] was administered IV for Stress Imaging at 0930 by RT Elvin(R). PATIENT DISCHARGED TO: Ambulatory patient, left NM department area. A Diagnostic radioactive procedure has taken place, with no further precautions necessary other than routine body substance precautions. More information regarding radiation safety can be found using this link: [email or web address] SIGNATURE: RT Sofy(R) PATIENT NAME: Javier Johnson DATE: October 11, 2022 TIME: 8:18 AM PAGER/CONTACT #: [id number] documented in this encounter [facility] 09-02-2022 History of Present illness Narrative [facility] STAFF PHYSICIAN NOTE OF PERSONAL INVOLVEMENT IN CARE I have reviewed the documentation obtained and documented by the Resident. I have personally performed a face to face assessment of the patient and have personally participated on the machado components of the history, exam and medical decision making. I have discussed the case and management of the patient's care. I wish to add the following findings which have been dictated and will be communicated back to the requesting physician. STAFF PHYSICIAN: Afia Cisneros MD, PhD DATE OF SERVICE: August 30, 2022 documented in this encounter [facility] 08-30-2022 History of Present illness Narrative PULM FUNCTION SMARTBLOCK: Provider: Afia Cisneros MD, PhD Spirometry: 1 DLCO: 1 6 MW: 1 System: MC9 - [id number] documented in this encounter [facility] 08-30-2022 History and physical note Images from the original note were not included. 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 EBUS negative for mediastinal lymph node involvement. Plan: Patient will need to complete 6 minute walk test and records for his cardiac testing will need to be obtained. He will be a candidate for left lower lobe lobectomy with mediastinal lymph node dissection. He will need to hold coumadin perioperatively. We have also counseled the patient the importance of tobacco cessation. HPI: Javier Johnson is a 77 year old White male referred by Francisco Mesa for an opinion regarding management of Lung Cancer. He is currently doing well, with no symptoms. He has a history of bladder cancer for which he underwent cradical cystoprostatectomy, pelvic lymphadenectomy, ileal urinary diversion, repair of rectal injury and diverting colostomy with Hartmanns pouch in 2015. Subsequent to that operation, he also had multiple surgery for fistula take down, most recently in March [address] John Mullins. Last month he also underwent an excision of skin cancer over his left baptism.He has Afib and is maintained on coumadin, and had threee strokes in his 40s and 50s with no neurological deficits. In regards to his lung cancer, he was noticed to have a nodule in left lower lobe on his surveillance CT chest. This was followed up with a PET CT which shows [id number] with SUV 4.2, mildly enlarged precarinal node (SUV 4.4), AP window 7.5x11.3mm SUV 3.3. He undewent CT guided biopsy of the left lower lobe which shows non-small cell carcinoma, favor adenocarcinoma. He wlaso underwent EBUS with TBNA which shows benign lymphoid tissues in the nodes sampled. Of note, he has 50 pack year cigarrette smoking history and quit in 2014. He is a current active tobacco chewer. ECOG Score: 0 Living arrangement: Lives with family/friend Functional status: Independent Unintentional weight loss over last 3 months: No PAST MEDICAL HISTORY: PAST MEDICAL HISTORY Diagnosis Date Anxiety Atrial fibrillation (HCC) Bladder cancer (HCC) BPH (benign prostatic hyperplasia) CVA (cerebral vascular accident) (HCC) x3 Former smoker 04/18/2022 HTN (hypertension) Hypercholesteremia PAST SURGICAL HISTORY: PAST SURGICAL HISTORY Procedure Laterality Date ANESTHESIA TOTAL CYSTECTOMY 2015 with prostate CATARACT EXTRACTION HX COLONOSCOPY SCRN NOT HIGH RISK 11/01/2020 EXCISION GANGLION WRIST DORSAL/VOLAR PRIMARY HEMIARTHROPLASTY HIP PARTIAL Left LX PARTIAL COLECTOMY MIDLINE INSERTION/CONSULT 07/26/2019 OSTOMY/HERNIA - REVISION reversal PARTIAL HIP REPLACEMENT Right SHOULDER SURGERY HX Left FAMILY HISTORY: FAMILY HISTORY Problem Relation Age of Onset Anesthesia Problems No Family History SOCIAL HISTORY: Social History Tobacco Use Smoking status: Former Packs/day: 1.00 Years: 50.00 Pack years: 50.00 Types: Cigarettes Quit date: 04/07/2015 Years since quittin.4 Smokeless tobacco: Current Types: Chew Vaping Use Vaping Use: Never used Substance Use Topics Alcohol use: Not Currently Drug use: Never MEDICATIONS: Prior to Admission Medications: lactose-reduced food (BOOST ORAL) Take 1 Can by mouth four times daily. lisinopril (ZESTRIL, PRINIVIL) 20 mg tablet Take 20 mg by mouth once daily. POTASSIUM ORAL Take by mouth once daily. 20 BID acetaminophen (TYLENOL) 325 mg tablet Take 1-2 tablets by mouth every 6 hours as needed for Pain. (Patient not taking: No sig reported) ascorbic acid, vitamin C, (VITAMIN C) 500 mg tablet Take 500 mg by mouth twice daily. warfarin (COUMADIN) 6 mg tablet Take 6 mg by mouth daily as directed. Saturday-Saturday take 6 mg, Saturday and Saturday, take 5 mg atorvastatin (LIPITOR) 20 mg tablet Take 20 mg by mouth once daily. metoprolol succinate ER (TOPROL XL) 25 mg 24 hr tablet Take 25 mg by mouth once daily. MULTI-VITAMIN ORAL Take 1 tablet by mouth once daily. ALLERGIES: ALLERGIES Allergen Reactions Azithromycin Unknown Mobic [Meloxicam] Unknown Chemical Exposure: No Asbestos Exposure No COMPLETE REVIEW OF SYSTEMS Constitutional: No weight loss, malaise or fevers. HEENT: Negative for frequent or significant headaches Resp: Negative for cough, wheezing, or shortness of breath Cardiovascular: Negative for chest pain, leg swelling or palpitations GI: Negative for abdominal discomfort, blood in stools or black stools or change in bowel habits : No history of dysuria, frequency, or incontinence Endo: Negative for cold or heat intolerance, polyuria, polydipsia and goiter Heme/Lymph: Positive for on coumadin Neurologic: No history or headaches, syncope, paralysis, seizures or tremors Integumentary: Negative for lesions, rash, and itching. Additional systems reviewed: No additional systems reviewed PHYSICAL EXAM There were no vitals taken for this visit. Constitutional: Well developed, Well nourished , and No acute distress HEENT: PERRLA Resp: Respiratory effort: normal Cardiovascular: Regular rate & rhythm GI: Soft, Non-tender, and midline scar well healed. Right ileal conduit and left colostomy Integumentary: Warm Musculoskeletal: No deformities Neurological/Psychiatric: Oriented to time, place & person Additional systems reviewed: No additional systems reviewed DATA: Radiology: PET CT 10mm left lateral lower lobe nodule meets criteria for iable neoplasm CT chest 03/14/2022 7mm nodule in left lower lobe PFTs FEV1 114% predicted DLCO 79% predicted I have personally reviewed the following images/data: CT scan and PET Scan Outside Paper Medical Records Review personally performed by: Elana Stephen MD SIGNATURE: Elana Stephen MD PAGER: [phone] DATE of SERVICE: 08/30/2022 TIME of SERVICE: 12:25 PM documented in this encounter [facility] 07-06-2022 Miscellaneous Notes SITUATION: Detention agency discharge visit completed today. spouse also present during today's visit. patient reports the following: Allergies--reviewed Medications--reviewed current medications Falls--None BACKGROUND: Reason for Home Care: wound care and assessment. ASSESSMENT: SN greeted at door by patient no DME and demonstrates stable gait. Patient appears in no acute distress. Patient/CG concerns verbalized today: pt verbalizes that he has not been able to pack the wound because the opening is too small. He requests dc from agency today as he feels that he can manage the wound care on his own. Vitals (see flow sheet for details): stable SN findings today: Pt is ambulating in the home without a device. He ambulated to bedroom for wound care. There is no packing in the wound and pt reports that even if he is able to get a small amount in, it does not remain in the wound. SN notes that wound opening is only 0.1 cm and was barely able to probe the wound with Q tip removing most of the cotton and moistened with saline, this is painful for the pt and wound is approx 1.5 cm deep. there was a small amount of light caldwell drainage on removed dressing. Sn notes no active drainage during wound care. SN sent message to Carri PENALOZA regarding if can gently cleanse the wound with a saline moist q tip and then cover with gauze. This was confirmed by Carri and pt instructed accordingly. See intervention summary for education details and any skills performed. Specific SN discharge instructions: Continue to monitor for signs of infection such as increased pain, odor to drainage, swelling in abdomen, fever. Notify Dr Mullins's office for any concerns. Patient encouraged to take all medication as ordered, eat a well-balanced diet and follow up with all physician appointments. NOMNC: patient requested discharge today Discharged due to no further SN skilled need. Patient discharged from Home Care to: self-care and family support RECOMMENDATION: Additional follow ups recommended: None Patient to follow up with Dr. Mullins for additional medical questions/concerns. documented in this encounter [facility] 07-04-[address] Delgado, Patient is in need of continued Home nurse visits 1wk3 for assessment/incision care. Thank you in advance for your review of this information. Ayo Sorenson RN-[facility] documented in this encounter [facility] 07-04-2022 Miscellaneous Notes SN contacted patient's , on 07/04/22 for the following: follow up from patient's telephone call to agency regarding need for supplies/nurse visits. Patient has not been seen for 1 1/2 weeks, need for nurse visit, supplies. SN called back to discuss with patient/cg'r. SN realizes the orders are out and the patient is in need of further SN visit orders. SN explained this nsituation to spouse, she is understanding that SN will request further orders per Dr. Delgado, SN will request further supplies to be ordered per [facility] as incision is still healing. SN has contacted primary visit nurse Kinsey and land development project manager regarding supplies that were ordered and will need approval to be sent [facility] by 07/06/22. SN to see patient Saturday for next scheduled visit. Spouse verbalizes ujnderstanding. documented in this encounter [facility] 06-29-2022 Miscellaneous Notes I spoke with Lokesh Jorge and Dr. Mesa about the bronch results. EBUS-TBNA sampling of stations 11Rs (right hilar), 4R (lower right paratracheal), 7 (subcarinal), 2L (high left paratracheal) and 11L (left hilar) all showed benign lymphoid tissue. All these nodes had benign appearing features on EBUS imaging, which further supports these are indeed benign. Because the LLL nodule is stable for about 5 months, I and Dr. Mesa feel a short-term chest CT in about 3 months to follow up the nodule and the nodes is reasonable. Dr. Mesa will make arrangements to have this done close to home. If any changes he will touch base with me for us to come up with a plan together. Karson Merino MD 06/29/2022 9:59 AM CC: DO Francisco Ely MD Anna Worthams, RIPENING ROOM OPERATOR.STAFFING ACCOUNT MANAGER Imelda Morris MD documented in this encounter [facility] 06-27-2022 Nurse Note POST OP LEARNING RESPONSE INSTRUCTION PROVIDED TO: Patient METHOD OF INSTRUCTION: Verbal instruction PATIENT / FAMILY RESPONSE: Verbalizes understanding of: POST-PROCEDURE INSTRUCTIONS-Correct actions to take to reduce post procedure complications FOLLOW-UP PLAN: Complete - No need for follow-up SUPPLEMENTAL MATERIAL: None REFERRAL (RECOMMENDATION): None Electronically Signed By: Priya Shannon RN In Department: ADMITTING AMBULATORY PATIENT EDUCATION READINESS TO LEARN COGNITIVE ABILITY: Alert and oriented MOTIVATION TO LEARN: Eager FAMILY SUPPORT: High - Very involved in pt care INSTRUCTION PROVIDED TO: Family member PATIENT LEARNS BEST BY: Verbal Instruction FACTORS AFFECTING LEARNING: None PHYSICAL LIMITATIONS AFFECTING LEARNING: None LEARNING RESPONSE DIAGNOSIS: lung disease METHOD OF INSTRUCTION: Verbal instruction PATIENT / FAMILY RESPONSE: Verbalizes understanding of: PRE-PROCEDURE INSTRUCTIONS-Correct action to take to follow pre-procedure instructions FOLLOW-UP PLAN: Complete - No need for follow-up REFERRAL (RECOMMENDATION): None Drug and Disease specific literature provided. Time Spent 5 minutes. Electronically Signed By: Joy Bunn RN In Department: ADMITTING documented in this encounter [facility] 06-22-2022 History of Present illness Narrative IP Clinical Coordinator Pre-Visit Chart Review Date of Visit: 06/25/22 Type of Visit: New Consult Summary of Reason for Visit: Pre bronch visit. (Bronch 06/27/22) Needed Testing Prior to Visit: None Notes: Per Bronch Request Diagnosis/Reason for Bronchoscopy: PET avid nodule and nodes Referred by: Moshe [phone] Reviewed by: MAXIMO Key MSN, RN, CCRN-K Interventional Pulmonary Clinical Coordinator documented in this encounter [facility] 06-21-2022 Miscellaneous Notes SITUATION: Detention routine visit completed today. spouse also present during today's visit. patient reports the following: Allergies--reviewed Medications--reviewed current medications Falls--None BACKGROUND: Reason for Home Care: wound asssessment and care. ASSESSMENT: SN greeted at door by caregiver. Upon entrance patient found in chair Patient appears in no acute distress. Patient/CG concerns verbalized today: pt verbalizes that he has what he thinks is stitch that is protruding from his healed incision. Vitals (see flow sheet for details): stable SN findings today: Pt ambulated to bedroom without device for wound care. Gait is steady. Wound opening measures the same as last week and pt reports that he has had some trouble packing wound but has been able to do so daily. SN cut the packing strip at an angle today and this did seem to help SN pack today. SN notes that there is less drainage, is light caldwell mixed with light serosang drainage. Periwound skin is in good condition. Sn notes that there does appear to be a stitch that is protruding about [address] up in the incision. There is a small scab in place, no drainage is present. Sn instructed pt to keep it clean and dry and will continue to monitor for any signs of infection or irritation, instructed pt that this is a dissolveable suture and sometimes they work their way to skin level. Pt continues.to be independent with ostomy care and denies any problems, stool is light brown in color. Pt reports that his INR was 6 this am and his coumadin is on hold. He is scheduled for a lung biopsy on 06/27 so the coumadin will be on hold until after the procedure. See intervention summary for education details. Patient demonstrated a need for further skilled SN services for wound/skin care. Current Discharge plan: self-care and family support RECOMMENDATION: Next visit to focus on (be specific): wound care and assessment. documented in this encounter [facility] 06-20-2022 Miscellaneous Notes Bronchoscopy scheduled on 06/27/2022. COVID test on 06/25/2022 at the [facility]. 5 day hold on Coumadin. documented in this encounter [facility] 06-19-2022 History of Present illness Narrative Bronchoscopy Request: Cleared for scheduling June 19, 2022 Please schedule patient for the following: Staging EBUS New Consulatation He had a PET (05/30/2022) , that reported adenopathy. 1. 10 x 10 mm subpleural nodule in the lateral left lung base (on recent abdomen/pelvis CT) is mild FDG activity (SUV 4.2). 2. Mildly enlarged precarinal (station 4) lymph node on image 96 of series 202 measures 7.9 x 9.9 mm with FDG activity (SUV 4.4). 3. AP window lymph node measuring 7.5 x 11.3 mm on image 94 of series 202 with mild FDG activity (SUV 3.3). Clinical Trial Candidate: No Visit and Bronchoscopy: Different Day Time Allotment/Tier: TIER 2: 2 HOUR Physician Performing Bronchoscopy:Bronch A, B or C Anesthesia Type: General Special Requests: None Needs Labs: No Needs EKG: No Needs CT prior: No Does the pt need cardiac clearance? No Is he/she on anticoagulants/anti-plt therapy? Yes Coumadin ok to hold for 5 days Nursing Considerations: (ie: assisted, TB, respiratory isolation, etc.) none Diagnosis/Reason for Bronchoscopy: PET avid nodule and nodes Referred by: Moshe [phone] Reviewed by: MAXIMO Baugh MD June 19, 2022 3:57 PM Addendum: CBC with diff: WBC 6.30 05/21/2022 RBC 3.86 05/21/2022 Hemoglobin 10.9 05/21/2022 Hematocrit 34.0 05/21/2022 MCV 88.1 05/21/2022 MCH 28.2 05/21/2022 MCHC 32.1 05/21/2022 RDW-CV 14.8 05/21/2022 Platelet Count 286 05/21/2022 MPV 10.3 05/21/2022 Neut% 67.0 05/18/2022 Lymph% 25.0 05/18/2022 [place]% 5.0 05/18/2022 Eosin% 0.3 10/25/2019 Baso% 0.0 05/18/2022 Abs Neut (ANC) 4.91 05/18/2022 Abs [place] 0.37 05/18/2022 Abs Eosin 0.22 05/18/2022 Abs Baso 0.00 05/18/2022 Potassium Date Value Ref Range Status 05/21/2022 3.9 3.7 - 5.1 mmol/L Final 05/20/2022 3.5 (L) 3.7 - 5.1 mmol/L Final 05/19/2022 3.9 3.7 - 5.1 mmol/L Final Sodium Date Value Ref Range Status 05/21/2022 141 136 - 144 mmol/L Final 05/20/2022 138 136 - 144 mmol/L Final 05/19/2022 138 136 - 144 mmol/L Final BUN Date Value Ref Range Status 05/21/2022 15 9 - 24 mg/dL Final Creatinine Date Value Ref Range Status 05/21/2022 1.20 0.73 - 1.22 mg/dL Final documented in this encounter [facility] 06-14-2022 Miscellaneous Notes SITUATION: Detention routine visit completed today. spouse also present during today's visit. patient reports the following: Allergies--reviewed Medications--reviewed current medications Falls--None BACKGROUND: Reason for Home Care: wound assessment and care ASSESSMENT: SN greeted at door by caregiver. Upon entrance patient found in chair Patient appears in no acute distress. Patient/CG concerns verbalized today: no special concerns Vitals (see flow sheet for details): stable SN findings today: Sn performed wound care for pt to assess wound today. Wound opening is getting very small and wound depth is filling in. SN instructed pt not to pack wound too tightly and try to fill the opening with the gauze so that it does not close prematurely. There is a moderate amount of light caldwell drainage, no odor is noted. Pt is independent with ostomy care and there has been no diarrhea or blood in stool since last week. Pt reports that he will be seeing a lung specialist due to finding 2 nodules that appear to be cancerous on his most recent PET scan. See intervention summary for education details. Patient demonstrated a need for further skilled SN services for wound/skin care. Current Discharge plan: self-care RECOMMENDATION: Next visit to focus on (be specific): wound assessment and care. documented in this encounter [facility] 06-08-2022 Miscellaneous Notes error documented in this encounter [facility] 06-08-2022 Miscellaneous Notes SN contacted Dr.Scott Zane Mullins on 06/08/22 for the following: unmade visit per patient's spouse who stated that patient had a MD appointment. documented in this encounter [facility] 06-07-2022 History of Present illness Narrative ET/WOCN Nursing Consult Topic: ET/WOCN Consultation Note ET Outcome: Patient seen today for follow up appointment with Pj PATRICIA. Patient denies any issues with current pouching systems. Order form sent to [employer] for precut flanges for both stomas and closed end pouches for the colostomy, both ordered for simplicity. Patient is independent with stoma care and pouching. ET's Next Scheduled Visit: as needed Pouch #1 Stoma Type: End ileal conduit Diameter: rounds to 1 Location: RLQ Protrusion: Flush Mucosal condition and color: Red and moist Mucocutaneous junction Intact Peristomal Skin: Clear and intact Location of Skin Impairment: N/A Peristomal contour: Rounded Supportive Tissue: Semisoft Character of output: yellow urine Emptying frequency per day: varies Current pouching system: Removed: 2 10/03 [place] New Image cut to fit convex flange, urostomy pouch Current wearing time: 1 day Recommendations: Skin Care: Stomahesive powder dusted to skin followed by Cavilon skin prep Pouching System: Applied: same system other then used 1 3/ [place] New Image convex flange Pouch #2 Stoma Type: End descending colostomy Diameter: rounds to 1 10/01 Location: LLQ Protrusion: Protrudes slightly Mucosal condition and color: Two Strike and moist Mucocutaneous junction Intact Peristomal Skin: Clear and intact Location of Skin Impairment: N/A Peristomal contour: Rounded Supportive Tissue: Semisoft Character of output: formed Emptying frequency per day: once per day Current pouching system: Removed: [place] New Image cut to fit flat flange, LNR pouch Current wearing time: 1 day Recommendations: Skin Care: Stomahesive powder dusted to skin followed by Cavilon skin prep Pouching System: Applied: 2 10/03 [place] New Image cut to fit convex flange, LNR pouch Midline Abdominal Incision: Other: low midline gape packed with 1/4 nugauze and covered with dry dressing. Treated today with silver nitrate by Pj PATRICIA Comment: 3 changes for each given Time Increment: 1 hour Vidhi Lewis RN BSN CWOCN on-call pager [phone] M-F 8-4, weekends 7-3 [place] [address] Patient: Javier Johnson Patient Address: [address] [place] [address] [place] [address] Preferred Gender: male Date of : 1945 Type of Stoma: End Descending Colostomy Diagnosis: Bladder Cancer C76.9 OSTOMY SUPPLY ORDER FORM Pouch: [place]: New Image 2 Beige Lock 'n Roll, drainable pouch #87753 30 day use- 1 box Pouch: [place] New Image closed end pouch #50771 30 day use - 1 Box Wafer: [place]: New Image 1 1/2 convex #70203 30 day use - 2 Boxes Adhesive Removers: ConvaTec Sensi-Care No Sting #[id number] 30 day use - 1 Box Powder: ConvaTec Stomahesive # 57495 30 day use - 1 Bottle Skin Sealant: 3M No Sting, 30/Box # 3344 30 day use - 1 Box Refills: 11 Attending Physician: Dr. Mullins For immediate authorization, please contact the physician s office. [facility] Nurse: CORAL Lincoln, CWOCN SIGNATURE: Vidhi Lewis RN PATIENT NAME: Javier Johnson DATE: June 07, 2022 TIME: 2:15 PM CONTACT #: [phone] EMAIL: [email or web address] [address] Patient: Javier Johnson Patient Address: [address] [place] [address] Dr [place] [facility] [place] [address] [place] [phone] Gender: male Date of : 1945 Type of Stoma: End Ileal Conduit Diagnosis: Bladder Cancer C76.9 OSTOMY SUPPLY ORDER FORM Pouch: [place]: New Image 1 3/4 Urostomy, Ultra clear #14504 30 day use - 1 Box Wafer: [place]: New Image convex 1 # 37817 30 day use - 2 Boxes Adhesive Removers: ConvaTec Sensi-Care No Sting #578107 30 day use - 1 Box Powder: ConvaTec Stomahesive # 90079 30 day use - 1 Bottle Skin Sealant: 3M No Sting, 30/Box # 3344 30 day use - 1 Box Refills: 11 Attending Physician: Dr. Mullins For immediate authorization, please contact the physician s office. [facility] Nurse: CORAL Lincoln, CWOCN SIGNATURE: Vidhi Lewis RN PATIENT NAME: Javier Johnson DATE: June 07, 2022 TIME: 2:12 PM CONTACT #: [phone] EMAIL: [email or web address] documented in this encounter [facility] 06-07-2022 History of Present illness Narrative COLORECTAL SURGERY Post-Op Visit Javier Johnson returns for a post-operative visit after undergoing surgery, on 04/26/2022. SURGEON: John Mullins M.D. SURGERY/PROCEDURE: 1. Exploratory laparotomy with extensive lysis of adhesions. 2. Small bowel resection. 3. Small bowel repair. 4. TAP block. 5. Omental pedicle graft. 6. Takedown of enterocutaneous fistula. 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 He has had a workup that demonstrated that it was coming from the small bowel and no sign of any tumor recurrence and now presents for definitive surgical management. He has been counseled as the risks of the procedure to include, but not limited to pain, bleeding, infection, need for other surgery, anesthesia risks, and . In addition, we went over the risk of damage to the ureters to the ileal conduit as well as damage to subsequent bowel, which may need to be repaired. OPERATIVE FINDINGS: 1. Extensive abdominal adhesions. 2. Prior antc-us-ujmv stapled anastomosis with site of the fistula to the pelvic staple line at the anorectal cuff and then tracking subcutaneously along the anterior abdominal wall to the midline incision. His post-operative period was c/b infection, possible ECF He is tolerating diet with an improving appetite, stable weight, and energy level is staying the same.. He has no specific complaints, except drainage from the wound. Stoma output: no changes. Current diet: normal. N/V none. F/C none. Incision/wound is draining and being packed. Wound getting smaller. Completed abx?: yes. Path: FINAL DIAGNOSIS Small bowel anastomosis, excision: - Segment of small bowel including enteroenteric anastomosis with dense fibrous adhesions, associated foreign body giant cell reaction, and features consistent with fistula tract. - Negative for neoplasm. Current Outpatient Medications Medication Sig Dispense Refill lactose-reduced food (BOOST ORAL) Take 1 Can by mouth four times daily. lisinopril (ZESTRIL, PRINIVIL) 20 mg tablet Take 20 mg by mouth once daily. POTASSIUM ORAL Take by mouth once daily. 20 BID acetaminophen (TYLENOL) 325 mg tablet Take 1-2 tablets by mouth every 6 hours as needed for Pain. (Patient not taking: No sig reported) ascorbic acid, vitamin C, (VITAMIN C) 500 mg tablet Take 500 mg by mouth twice daily. warfarin (COUMADIN) 6 mg tablet Take 6 mg by mouth daily as directed. Saturday thru Saturday takes 6mg on sat and sun take 5mg atorvastatin (LIPITOR) 20 mg tablet Take 20 mg by mouth once daily. metoprolol succinate ER (TOPROL XL) 25 mg 24 hr tablet Take 25 mg by mouth once daily. MULTI-VITAMIN ORAL Take 1 tablet by mouth once daily. No current facility-administered medications for this visit. ALLERGIES Allergen Reactions Azithromycin Unknown Mobic [Meloxicam] Unknown There were no vitals taken for this visit. Abdominal examination: soft, non-distended, and non-tender without masses or hernias. Wound is tunneled and probes about 2.5 cm gently with qtip, a glob (maybe 5mL) of yellow mucus was immediately evacuated, not packed completely, treated with silver nitrate, packed and covered. See WOCN note Assessment Assessment: Appetite: Eating and drinking well Stoma (not new) WNL, see WOCN notes Incision/wound: as above, reinforced packing recommendations. During the visit, the pt and his training director verbalized frustration between our recommendations and the home care nurses recommendations. I explained that we recommend that he pack the wound with dry gauze and pack the length of the tunnel. Per his training director, the home care nurse advised the pt to pack with saline gauze and not too much so that it can heal. We discussed that there are different approaches to wound care but that in general we advise packing the length of the wound to prevent false/premature closure and allow for drainage. Additionally, if they want to pack W2D that's fine. I offered an appointment with Dr. Mullins as there seemed to be confusion and frustration, the pt's training director became upset and states that this is the postop appointment, why do they have to come back. I explained that this is fine and that we are here should any issues/concerns come up. Overall doing OK Plan: OK to slowly begin to advance diet, one food at a time, advised to keep diary to track response to adding new foods Ok to lift up to 15lbs, advised to wait at least 2-4 weeks before very heavy/strenuous lifting and core work- we discussed hernia risk Carri Osorio APRN.HARSHAD documented in this encounter [facility] 06-03-2022 Miscellaneous Notes {Patient's called in, states he has several episodes of diarrhea today and now he has a little bit of blood in colostomy bag. Pt. denies any increased pain, states his INR was checked on and was normal. He just finished with two antibiotics following surgery for a fistula. wanted to see if we can move visit to tomorrow or Saturday to check him out. Notified her I would move up visit. She said she will monitor blood and if he has an increase or more blood she will take him in to get checked out but right now its just a little bit.Encouraged fluids due to loose BM.No fever. documented in this encounter [facility] 05-30-2022 Miscellaneous Notes SITUATION: Detention routine visit completed today. spouse also present during today's visit. patient reports the following: Allergies--reviewed Medications--reviewed current medications Falls--None BACKGROUND: Reason for Home Care: wound assessment and care ASSESSMENT: SN greeted at door by patient no DME and demonstrates stable gait. Patient appears in no acute distress. Patient/CG concerns verbalized today: no special concerns Vitals (see flow sheet for details): stable SN findings today: pt reports that he has been doing his own wound care twice a day. the packing strip that arrived yesterday is 10/03 and he states that this works much better than 1 strip. SN and pt did the wound care together today, Sn did point out some infection hygeine practices such as cleaning the scissors and using a clean surface (paper towel) to place his items on so that he is not using the bed surface. Pubis wound has a moderate amount of light serosang on the removed dressing and then a fairly large amount was expressed after the packing was removed, this was light yellow in color but no odor is noted. Pt reports tenderness with packing of the wound but otherwise denies pain. Pt is independent with ostomies and denies any issues. He has plenty of supplies See intervention summary for education details. Patient demonstrated a need for further skilled SN services for wound/skin care. Current Discharge plan: self-care and family support RECOMMENDATION: Next visit to focus on (be specific): wound assessment and care documented in this encounter [facility] 05-23-2022 Miscellaneous Notes SITUATION: Detention SOC visit completed today. spouse also present during today's visit. patient and caregiver reports the following: Allergies--reviewed Medications--full medication reconciliation completed Falls--None DME-Reviewed and added to chart BACKGROUND: Discharged/Referral from acute care hospital following treatment for Other injury of unspecified body region, initial encounter . 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 Upon entrance patient found in chair Patient appears in no acute distress. Patient lives at home with . Home environment: clean and uncluttered. SOC booklet reviewed & completed with patient and caregiver and consent obtained for Home Care services. Vitals (see flow sheet for details): stable SN findings today: pt presents today in his home ambulating without a device SBA with present Pt has an open wound to end of his abd incision. and pt educated on s/s of infection, wound care, nutrition, home safety and medication management pt is on coumadin that is being maintained and monitored by his PCP he express he does not want [facility] to draw his weekly labs as he is a hard stick and his PCP uses a Coag meter which requires a pina stick. pt has a colostomy and urostomy that he has had for a while and demonstrates independence of care and supply ordering wound care supplies ordered through Ayo Barraza RN CM this visit. pt express understanding See intervention summary for education details and skills performed. Plan of care and visit frequency established with patient and caregiver and plan of care agreed upon. Patient demonstrated a need for further skilled SN services for chronic disease management & education, medication education and wound/skin care. RECOMMENDATION: Visit Frequency: 1x4 Need for additional services: Patient agreeable to N/A referrals. Patient declined N/A referrals. Additional concerns to be followed up on: NONE Next visit to focus on (be specific): wound care documented in this encounter [facility] 05-21-2022 Miscellaneous Notes Welcome Home Call: a. Date and Time: 12:20 PM 05/21/2022 b. Contact name/relationship: Zain/spouse c. Have you been active with any Home Care company in the last 60 days(such as help with bathing, filling medications, checking your blood pressure) ? No. d. [facility] will be providing your care, are you agreeable to starting these services? yes (yes or no) e. Do you have any upcoming appointments in the next few days, or restrictions to your schedule? Not sure We would come to see you in 24-48* from your discharge today; Are you agreeable to a visit in that time frame? yes (Yes/ No (if no, when would you like to be seen?)) f. Caregiver: Patient is able to manage care independently Please keep our your medications both over the counter and prescribed out for the home care to review, your hospital discharge instructions and write down any questions you might have. In order to maintain a safe environment for our caregivers, [facility] requires any animals or weapons present in the home be located in a secured location. Our clinicians will call you the night before or the morning of the appointment. Their # may come up restricted but they'll leave a VM for you. In case you have any questions or concerns in the meantime, our # is [phone], option 1 Thank you for your time and have a great day. Jahaira Vera documented in this encounter [facility] 05-17-2022 Miscellaneous Notes Spoke with patients' Patient is s/p 1. Exploratory laparotomy with extensive lysis of adhesions.2. Small bowel resection. 3. Small bowel repair.4. TAP block.5. Omental pedicle graft.6. Takedown of enterocutaneous fistula. With Dr Mullins on 04/26/22 Patient is currently admitted at [facility], transfer to has been requested and accepted - pending a bed opening is frustrated regarding this process. Listened to her concerns and provided therapeutic feedback. Advised that at this point in time, our beds are full and we are just waiting on a bed opening in order to be able to begin the transfer. In the meantime, the providers at [facility] can reach out to Dr Mullins if they have any questions regarding Vinod's care. The provider who requested the transfer can also call for updates regarding the status of the bed openings and potential timeline for the transfer. appreciative of discussion, and will ask requesting provider to call for update on transfer timeline. Advised that she can call back with any questions, we are happy to help her in any way we can. documented in this encounter [facility] 05-09-2022 Miscellaneous Notes PATIENT INFORMATION Record ID: [id number] Patient Name: [facility]: [facility] [place]: [facility] [place] Attending: John Mullins Center: Colorectal Surgery INSTRUCTIONS SN to remind patient of appointment date, time, location All Clear Ask follow question #4b on NOC section of survey. All Clear All Clear SURVEY INFORMATION Medical/Nurse Customs Compliance Director: Lisha Hudson 1. Your discharge instructions are important in guiding you through the recovery process. Is there anything I could help you clarify on your discharge instructions? (Standard Question) No 2. Do you have a follow up appointment related to your hospital stay scheduled within the next 30 days? (Standard Question) Yes 3. Are you vomiting after eating or drinking? (Red Flag Question) No 4. Do you have a stoma? Yes 5. Are you having any difficulty passing urine? (Red Flag Question) No 6. Do you have any of the following new symptoms related to your wound? Creamy white or foul smelling drainage Increasing redness or swelling, Increasing pain;? (Red Flag Question) No 7. Many patients have concerns about their medications once they are home. Do you have any questions about getting or taking your medications? (Standard Question) No 8. Do you have any new or different symptoms? (Standard Question) No documented in this encounter [facility] 04-23-2022 Miscellaneous Notes Called and spoke with patient's Advised that once we get the test results, if they are positive, we typically do postpone surgery This will be a decision amongst the provider and anesthesia, and we will call the patient with the final decision However, if negative, then we will proceed with surgery Verbalized understanding, appreciative of call ----- Message from Padmini Young [facility] sent at 04/23/2022 8:08 AM EDT ----- Regarding: Update - tested positive for Covid he goes for his test today His is the caller and reports she tested positive for Covid. She is questioning if he test positive today will the surgery be postponed. [phone] documented in this encounter [facility] 04-19-2022 Miscellaneous Notes Summary: Anticoagulation Recommendations Scanned into patients chart documented in this encounter [facility] 04-18-2022 History and physical note Images from the original note were not included. HISTORY AND PHYSICAL EXAMINATION SERVICE DATE: 04/18/2022 SERVICE TIME: 8:16 AM PRIMARY CARE PHYSICIAN: No primary care provider on file. REASON FOR VISIT: Javier Johnson is a 76 year old male who is scheduled for EXPLORATORY LAPAROTOMY, CLOSURE ENTEROSTOMY LARGE OR SMALL INTESTINE W/ RESECTION AND COLORECTAL ANASTOMOSIS at the request of Dr. John Mullins for consultation. My final recommendation will be communicated back to the requesting physician by way of shared medical record or letter. The patient has the following: ACTIVE PROBLEM LIST Enterocutaneous Fistula Post-Op Pain Hld (Hyperlipidemia) Overweight (Bmi 25.0-29.9) History of Bladder Cancer S/P Ileal Conduit (Hcc) Colostomy in Place (Hcc) Atrial Fibrillation (Hcc) Essential Hypertension Chronic Anticoagulation History of Cva (Cerebrovascular Accident) Nicotine use disorder, F17.2 Hypokalemia Hypoalbuminemia Postprocedural Intraabdominal Abscess Abdominal Fluid Collection Malignant Neoplasm of Urinary Bladder (Hcc) Lung Nodule Former Smoker Subjective CHIEF COMPLAINT: Enterocutaneous fistula HPI: 76 year old male scheduled for EXPLORATORY LAPAROTOMY, CLOSURE ENTEROSTOMY LARGE OR SMALL INTESTINE W/ RESECTION AND COLORECTAL ANASTOMOSI on 04/26/22. 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 He is having drainage. Denies any current pain. Denies any fever, chills, nausea, vomiting, chest pain, abdominal pain, SOB. PAST MEDICAL HISTORY Diagnosis Date Anxiety Atrial fibrillation (HCC) Bladder cancer (HCC) BPH (benign prostatic hyperplasia) CVA (cerebral vascular accident) (HCC) x3 Former smoker 04/18/2022 HTN (hypertension) Hypercholesteremia PAST SURGICAL HISTORY Procedure Laterality Date ANESTHESIA TOTAL CYSTECTOMY 2016 with prostate CATARACT EXTRACTION HX COLONOSCOPY SCRN NOT HIGH RISK 11/01/2020 EXCISION GANGLION WRIST DORSAL/VOLAR PRIMARY HEMIARTHROPLASTY HIP PARTIAL Left LX PARTIAL COLECTOMY MIDLINE INSERTION/CONSULT 07/26/2019 OSTOMY/HERNIA - REVISION reversal PARTIAL HIP REPLACEMENT Right SHOULDER SURGERY HX Left FAMILY HISTORY Problem Relation Age of Onset Anesthesia Problems No Family History SOCIAL HISTORY: Social History Tobacco Use Smoking status: Former Smoker Packs/day: 1.00 Years: 50.00 Pack years: 50.00 Types: Cigarettes Quit date: 04/07/2015 Years since quittin.0 Smokeless tobacco: Current User Types: Chew Vaping Use Vaping Use: Never used Substance Use Topics Alcohol use: Not Currently Drug use: Never MEDICATIONS: Prior to Admission medications as of 04/18/22 0840 Medication Sig Last Dose Taking neomycin 500 mg tablet Take 2 tablets by mouth at 9pm and take 2 tablets by mouth at 11pm the night before surgery. Taking Yes metroNIDAZOLE (FLAGYL) 500 mg tablet Take 1 tablet by mouth at 9pm and take 1 tablet by mouth at 11pm the night before surgery. Taking Yes LISINOPRIL ORAL Take by mouth. Taking Yes POTASSIUM ORAL Take by mouth once daily. 20 BID Taking Yes ascorbic acid, vitamin C, (VITAMIN C) 500 mg tablet Take 500 mg by mouth twice daily. Taking Yes warfarin (COUMADIN) 6 mg tablet Take 6 mg by mouth daily as directed. Taking Yes atorvastatin (LIPITOR) 20 mg tablet Take 20 mg by mouth once daily. Taking Yes metoprolol succinate ER (TOPROL XL) 25 mg 24 hr tablet Take 25 mg by mouth once daily. Taking Yes MULTI-VITAMIN ORAL Take 1 tablet by mouth once daily. Taking Yes amoxicillin-clavulanic acid (AUGMENTIN) 875-125 mg per tablet Take 1 tablet by mouth twice daily. Patient not taking: Reported on 04/18/2022 Not Taking levoFLOXacin (LEVAQUIN) 500 mg tablet Take 500 mg by mouth once daily. Patient not taking: Reported on 04/18/2022 Not Taking acetaminophen (TYLENOL) 325 mg tablet Take 1-2 tablets by mouth every 6 hours as needed for Pain. Patient not taking: Reported on 04/18/2022 Not Taking No medication comments found. CURRENT ALLERGIES: ALLERGIES Allergen Reactions Azithromycin Unknown Mobic [Meloxicam] Unknown COVID VACCINATION STATUS: Fully vaccinated REVIEW OF SYSTEMS: PAIN ASSESSMENT: General: No weight loss, malaise or fevers. Neuro: Negative for TIA's Headaches Seizures Tumor involving OVEN DUMPER Parkinson's Disease Multiple Sclerosis Impaired Sensorium+hx of CVA- multiple, residual memory deficits Respiratory: Negative for Asthma, Bronchitis, COPD, Current cough, Dyspnea, Pneumonia within 6 weeks (date), URI < 2 weeks+former smoker, +lung nodule Cardiovascular: Negative for Recent CA, Angina, CAD, CHF, PVD, Valvular Heart Disease, DVT/PE+HLD, +HTN, +a fib GI: See HPI : No history of dysuria, frequency or incontinence,, stones or chronic kidney disease Endocrine: No history of diabetes. Has not taken steroids within the past 30 days. No history of endocrinological symptoms or problems. Hematology: No history of bleeding or clotting disorder.No history of hematological symptoms or problems.+Coumadin Oncology: +hx of bladder cancer-s/p cystectomy Psych: No history of psychiatric symptoms or problems. Musculoskeletal: Negative for joint pain or swelling, back pain or muscle pain. Skin: Negative for lesions, rash and itching. Objective PHYSICAL EXAM: VITALS: BP 155/74[Pt not sure if took BP meds this AM- PA notified[ Pulse 62 Temp (Src) 97.6 (Temporal) Ht 5' 8 (1.73m) Wt 181 lb 11.2 oz (82.4kg) SpO2 100% BMI 27.63 kg/(m^2). General: Alert and oriented, No acute distress Skin: Normal color, no rash, no lesions. HEENT: EOM, pupils equal, round and reactive., No carotid bruits Cardiovascular: Normal S1 & S2, no rubs, murmurs or gallops. No JVD. Pulse regular. Lungs: Normal breath sounds, no wheezes or crackles. Extremities: No deformity, no edema or tenderness, no joint swelling or clubbing. Neurological: Normal cognition and motor skills. Gait normal. No weakness or sensory deficit. Pulses: Radial pulses normal +2. Diagnostic tests reviewed for today's visit: Lab Value Units Date High Low HB 12.0 g/dL 02/08/2022 17.0 13.0 HCT 36.7 % 02/08/2022 51.0 39.0 WBC 6.29 k/uL 02/08/2022 11.00 3.70 PLT 177 k/uL 02/08/2022 400 150 NA 138 mmol/L 02/08/2022 144 136 K 3.6 mmol/L 02/08/2022 5.1 3.7 GLUC 82 mg/dL 02/08/2022 99 74 BUN 11 mg/dL 02/08/2022 24 9 CREAT 1.19 mg/dL 02/08/2022 1.22 0.73 PTSEC 15.9 sec 02/08/2022 13.0 9.7 INR 1.5 no uni* 02/08/2022 1.3 0.9 APTT 37.2 sec 02/05/2022 32.4 23.0 ALT 11 U/L 02/04/2022 54 10 AST 19 U/L 02/04/2022 40 14 TBILI 0.4 mg/dL 02/04/2022 1.3 0.2 TSH No results within date range. Lab Value Units Date High Low HCGQT No results within date range. UHCG No results within date range. HCG, BODY* No results within date range. Lab Value Units Date High Low ABORHD No results within date range. ABSCREEN No results within date range. 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 History of CVA (cerebrovascular accident) -multiple, patient does not remember exact dates per chart review, 1996, 2007, and 2012 -residual memory deficits Lung nodule -followed with routine imaging -per patient very small Former smoker -quit 2014 -50 pack year history Essential hypertension -BP elevated in office 155/74 -per patient usually lower than that, stressed out from drive in this morning -denies cardiac symptoms, EKG pending HLD (hyperlipidemia) -stable on rx Atrial fibrillation (HCC) -stable on metoprolol -on Coumadin, sent letter to PCP for AC instructions -denies cardiac symptoms -HR 62 -EKG pending History of bladder cancer -s/p cystoprostatectomy 2016 Chronic anticoagulation -Coumadin, prescribed by PCP METS: Climb a flight of stairs or walk up a hill (5.50 METs) Patient denies any chest pain or undue shortness of breath with the above physical activity. ASA Class: 3 ANESTHESIA FINDINGS: Intubation History: No history of difficult intubation Significant Anesthesia Considerations: Difficult IV/Vein Access: sometimes Airway Exam: General: Normal appearance Mallampati Score is CLASS I ULBT: Unable to perform Neck: Normal appearance and function, Distance from hyoid to mentum during neck extension is at least 3 finger breaths Mouth: Normal tongue size and Mouth opening greater than 2 finger breaths Dentition: Upper denture and Lower denture Airway History: No abnormal airway history STOP BANG Score: Criteria: Hypertension Age over 50 (76 year old) Male gender Score = 3 PLAN This patient is optimally prepared for surgery pending LABS and EKG. CONSULTS: The following consults have been initiated at this time: Letter sent to patient's PCP, Dr. Arlette Evans, for Coumadin instructions. The Following Tests/Procedures Have Been Initiated: CBC, CMP, T&S, and EKG per surgical service. Planned Anesthetic: General Instructions Given to Patient: Instructions located in the after visit summary. Patient given verbal and written preop instructions and voices comprehension and compliance. SIGNATURE: Shayna Patel PA-C PATIENT NAME: Javier Johnson DATE: April 18, 2022 TIME: 8:35 AM documented in this encounter [facility] 04-18-2022 Instructions Shayna Patel PA-C - 04/18/2022 8:22 AM EDT PATIENT PREOPERATIVE INSTRUCTIONS John Mullins MD has scheduled you for your procedure at this surgery center: [facility] Scheduling Office: [phone] --[address] [place] [address]. Please read below carefully for your personalized instructions. Dietary Restrictions: - No solid food after midnight. - You may have 12 ounces of clear liquids (water, clear juices such as apple juice or gatorade, carbonated beverages, clear tea, black coffee, jello) until 2 hours before scheduled arrival at facility. Medications: Unless instructed differently below, stay on all of your medications until your surgery. Approved medications to take the morning of surgery with a sip of water: Atorvastatin, metoprolol DO NOT TAKE YOUR LISINOPRIL THE NIGHT BEFORE OR MORNING OF SURGERY If you start any new medications after today's visit, please contact the surgeon's office. Blood Thinning Medications: - Stop NSAIDS (Ibuprofen, Advil, Aleve, Motrin, Celebrex, Mobic, etc.) 7 days before surgery, as directed by your surgeon. - Stop Aspirin 7 days before surgery, as directed by your surgeon. - Stop Vitamin E, ALL multi-vitamins, herbals and dietary supplements 7 days before surgery. - You may take Tylenol (Acetaminophen) or any of your pain medications that do not contain aspirin or NSAIDS as needed. - I will call with Coumadin instructions Important Reminders: - Candy, mints, and tobacco products are NOT permitted the morning of surgery. - Hearing aids, dentures and glasses may be worn the morning of surgery. - NO jewelry, body piercings, makeup, hairpins or contacts are to be worn the day of surgery. If you develop symptoms such as a fever, cold, or flu, or have other changes to your health within TWO DAYS of scheduled surgery or the morning of surgery, please contact the surgery center above. Personal Belongings: -Please have photo ID and insurance cards. -If you do not have a copy of advance directives on file with us, please bring a copy with you on the day of surgery. - Leave ALL valuables and money at home or with family members. For Outpatient Procedures: - YOU MUST HAVE A RESPONSIBLE SEARCH STRATEGIST TAKE YOU HOME. A ZIG ZAG STITCHER OR ESTIMATOR JEWELRY CANNOT BE MADE A RESPONSIBLE SEARCH STRATEGIST. - We recommend that a responsible person stays with you overnight to take care of you. - You cannot stay in a hotel alone after outpatient surgery. You will not be permitted to have your surgery, if you do not have someone to take care of you. Arrival Time for Surgery: - To obtain your arrival time for surgery, call your physician's office the day before your surgery. - If your surgery is scheduled for Saturday, call the Saturday before. Your surgeon s materials scheduler will tell you what time to call the office. - If you have not reached the departmental materials scheduler by 5 P.M., call [phone] after 5 P.M. the day before your surgery. Please be aware that emergency situations arise, which may delay or change your surgical time. If this happens, we will notify you as soon as possible and regret any inconvenience. If you already have an Advance Directive, please fax a copy to [phone] or email to for it to be added to your chart. If you do not have an Advance Directive, you can find the appropriate form and more information at [email or web address]. We recommend that you complete the Advance Directive form found on the website and bring it with you the day of your surgery. It can be witnessed and scanned into your chart that day. 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 Today's Visit Seen by Dr. Mullins on 02/2022 for continued drainage, prescribed Augmentin and told to follow up with urology to r/o bladder cancer recurrence. Patient presents today with continued bilious output from his ECF. Requires gauze change multiple times per day. No changes in output but patient is keen on having this ECF fixed. No N/V, F/V, change in ostomy output or ECF drainage. Cellulitis has improved since previous visit. Has been seen by urology, urology does not think ECF is secondary to bladder cancer recurrence. Discussed with patient ex lap with fistula takedown. Discussed risks of not proceeding with surgical management, including abscess formation and abscess. We discussed the difficulty of operating on him given his ileal conduit and colostomy. 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 02/04/2022 CT a/p IMPRESSION: -Heterogeneous area of gas/fluid in the right anterior pelvis favored to reflect a small collection with possible cutaneous fistulization or less likely a herniated small bowel loop. -1.3 cm indeterminate pulmonary nodule at the left lung base is new since 2019 suggest short interval follow-up CT chest to assess stability. -Slight increase in size of indeterminate left renal lesion. Recommend continued attention on follow-up examinations. 02/04/[address] Monzon -He was admitted to the colorectal surgery service, started on IV fluids and IV antibiotics -Interventional Radiology was consulted on 02/05 to perform an image-guided drain placement to the collection. However, the collection was too small to be drained. Since he continued to have pain in his suprapubic area, a bedside I&D was performed. 02/14/[address] Mullins This has been closed for about one month and no issues. He had a colonoscopy and had some diversion proctitis and friabillity (and on blood thinners), therefore that is clear. PLAN: as above. See me prn and scope in 5-10 years. Continue to follow up with PCM 11/01/2020 Colonoscopy Impression: - Anal stricture found on digital rectal exam. - Friability with no bleeding in the Romie pouch. - No specimens collected. s/p 07/20/2019 (francesca) 1. Exploratory laparotomy. 2. Extensive lysis of adhesions greater than 1 hour. 3. Takedown of enterocutaneous fistula with small bowel resection and primary anastomosis. 4. Takedown of Romie's cutaneous fistula with proctectomy and ultra-low Romie's pouch. 5. Flexible sigmoidoscopy Quit smoking 5-6 years ago. Hx: HTN, CVA, Bladder CA, Afib, Anxiety Physical Exam: There were no vitals taken for this visit. General - awake, alert, no acute distress Abdominal - Colostomy pink and pouched with brown liquid stool in bag; TTP around ECF in midline but not erythematous, draining brown bilious liquid, no effluence Assessment Medical Decision Making: Assessment & Diagnosis: Javier Johnson is a 76 year old male here for recurrence of ECF. Data Reviewed: Tests & Documents Reviewed/ordered: Review of Imaging: XR small bowel I have independently interpreted: CT Abdomen, CT Pelvis I have discussed Javier Johnson's treatment plan and/or results with him and his . Treatment plan: - Will schedule for ex lap, lysis of adhesions, bowel resection Risk of morbidity, mortality and/or complications of treatment plan: moderate Associated attestation - John Mullins MD - 04/10/2022 10:46 AM EDT [facility] STAFF PHYSICIAN NOTE OF PERSONAL INVOLVEMENT IN CARE I have reviewed the history and physical examination obtained and documented by the resident and I personally participated in the machado components. I have discussed the case and management of the patient's care. The following comments revise or confirm relevant machado components of their note. IMPRESSION: This is a 76 year old male who presents with ECF from small bowel to the lower midline PLAN: Procedure: Ex lap, VONNIE, resection of bowel, possible fistula. The risks, benefits and anticipated outcomes of the procedure, the risks and benefits of the alternatives to the procedure, and the roles and tasks of the personnel to be involved, were discussed with the patient, and the patient consents to the procedure and agrees to proceed. Went over the risks of damage to the ureters, ileal conduit, recurrence of ECF, damage to small intestine, pain, bleeding, infection, need for other surgery, need for other stoma. Plan of care discussed with Patient and Family/Significant Other: CARE COORDINATION: To OR. SIGNATURE: John Mullins MD DATE of SERVICE: April 10, 2022 TIME of SERVICE: 10:44 AM documented in this encounter [facility] 03-29-2022 Miscellaneous Notes After discussing further with the , she explain that this is not a new occurrence. All the symptoms he has now are the same that he had when seeing Dr. Mullins in February. The fistula is having brownish drainage, and they are looking to get a sooner FU. I added an appointment for them on 04/[address] Mullins. Called patients back. She couldn't really explain what was coming out. I asked if it was drainage and she said it was brown in color, bowel. I asked that she take a picture and send it through [facility]. Will wait for picture to see. Shayna Lewis RN The patients spouse Zain is calling to report/discuss the bowel coming from the fistula. [phone] documented in this encounter [facility] 03-21-2022 History of Present illness Narrative PATIENT: Javier Johnson [id number] REFERRING MD: John Mullins 03/19/2022 Chief Complaint S/p Bladder cancer, enterocutaneous fistula Referral Consultation requested by Dr. Mullins for an evaluation of bladder cancer as a cause of enterocutaneous fistula. My final recommendations will be communicated back to the requesting physician by way of shared Medical record or letter to requesting physician via US mail. History of Present Illness Javier Johnson is a 76 year old male who presents with a history of enterocutaneous fistula. 08/13/2016 radical cystoprostatectomy, pelvic lymphadenectomy, ileal urinary diversion, repair of rectal injury and diverting colostomy with Hartmanns pouch. s/p 07/20/2019 - Takedown of enterocutaneous fistula with small bowel resection and primary anastomosis. - Takedown of Romie's cutaneous fistula with proctectomy and ultra-low Romie's pouch. 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 Past Histories PAST MEDICAL HISTORY Diagnosis Date Anxiety Atrial fibrillation (HCC) Bladder cancer (HCC) BPH (benign prostatic hyperplasia) CVA (cerebral vascular accident) (HCC) x3 HTN (hypertension) Hypercholesteremia PAST SURGICAL HISTORY Procedure Laterality Date ANESTHESIA TOTAL CYSTECTOMY 2015 with prostate CATARACT EXTRACTION HX COLONOSCOPY SCRN NOT HIGH RISK 11/01/2020 EXCISION GANGLION WRIST DORSAL/VOLAR PRIMARY HEMIARTHROPLASTY HIP PARTIAL Left LX PARTIAL COLECTOMY MIDLINE INSERTION/CONSULT 07/26/2019 OSTOMY/HERNIA - REVISION reversal PARTIAL HIP REPLACEMENT Right SHOULDER SURGERY HX Left Medications Current Outpatient Medications Medication Instructions acetaminophen (TYLENOL) 325-650 mg, ORAL, EVERY 6 HOURS NEEDED amoxicillin (POLYMOX, AMOXIL) 500 mg, ORAL, EVERY 12 HOURS amoxicillin-clavulanic acid (AUGMENTIN) 875-125 mg per tablet 1 tablet, ORAL, 2 TIMES DAILY ascorbic acid (vitamin C) (VITAMIN C) 500 mg, 2 TIMES DAILY atorvastatin (LIPITOR) 20 mg, ORAL, DAILY levoFLOXacin (LEVAQUIN) 500 mg, ORAL, DAILY LISINOPRIL ORAL ORAL metoprolol succinate ER (TOPROL XL) 25 mg, ORAL, DAILY MULTI-VITAMIN ORAL 1 tablet, ORAL, DAILY POTASSIUM ORAL ORAL, DAILY, 20 BID warfarin (COUMADIN) 6 mg, ORAL, DAILY - WARFARIN Family History No family history on file. Social History Social History Tobacco Use Smoking status: Former Smoker Packs/day: 1.00 Years: 50.00 Pack years: 50.00 Types: Cigarettes Quit date: 04/07/2015 Years since quittin.9 Smokeless tobacco: Current User Types: Chew Vaping Use Vaping Use: Never used Substance Use Topics Alcohol use: Not Currently Drug use: Never Allergies Allergies: Azithromycin Unknown Mobic [Meloxicam] Unknown Review of Systems As in HPI Physical Exam There were no vitals taken for this visit. General: Alert, no acute distress, oriented Lungs: No respiratory distress or pursed lip breathing Psych: Affect and mood normal Abdomen: Estimated body mass index is 27.83 kg/m as calculated from the following: Height as of 02/04/22: 172.7 cm (5' 8). Weight as of 02/05/22: 83 kg (183 lb). Imagin02/04/2022 CT ABD/PEL W IV CON Kidneys: -Cystoprostatectomy with ileal conduit creation. No hydronephrosis. -1.5 cm above water attenuation left interpolar renal lesion (2:56), previously 1.2 cm. -Multiple renal cysts, the largest up to 6.6 cm in the right interpolar region with thin nonenhancing internal septation (2:52). -Additional subcentimeter low-attenuation lesions, too small to characterize. -Small gas focus in the right upper pole collecting system (image 52), likely related to urostomy evacuation. GI tract: Postsurgical changes from sigmoidectomy with oversewn rectal stump and left lower quadrant colostomy. Enteroenteric anastomosis in the mid abdomen. No dilated small bowel. Lymph nodes: No abdominal or pelvic lymphadenopathy. 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 Assessment: Mr Javier Johnson is a patient s/p Bladder cancer with enterocutaneous fistula whom we are asked to see for follow up of his bladder cancer previous his fistula intervention. We discussed the according the CT abd and pelvis , 02/04/2022, there is no lymphadenepathy, also no hydronephrosis or According the Ct abd/pel, 02/04/2022, there isn't abdominal or pelvic lymphadenopathy. Also, there is not hydronephrosis. There is a 1.3 cm indeterminate pulmonary nodule at the left lung base is new since 2019. A short interval follow up CT chest to assess stability is recommended. Even though according the radiology report a follow up is recommended, we decided on a consult to pulmonary nodule team for a further evaluation. Jose Deluna MD Urologic Staff [facility] documented in this encounter [facility] 03-13-2022 History of Present illness Narrative COLORECTAL SURGERY Follow-up March 12, 2022 Chief complaint: Follow up visit s/p ACS admission HPI: 76M PMHx of bladder cancer, s/p cystectomy and ileal conduit, amado's procedure c/b cutaneous fistula who was recently admitted with ECF recurrence c/b cellulitis requiring admission in 01/2022. SBFT demonstrated a distal ileal ECF. He presents today for follow up and continues to have persistent drainage requiring guaze change 4-5 times a day. He reports significant tenderness around this site. 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 02/04/2022 CT a/p IMPRESSION: -Heterogeneous area of gas/fluid in the right anterior pelvis favored to reflect a small collection with possible cutaneous fistulization or less likely a herniated small bowel loop. -1.3 cm indeterminate pulmonary nodule at the left lung base is new since 2019 suggest short interval follow-up CT chest to assess stability. -Slight increase in size of indeterminate left renal lesion. Recommend continued attention on follow-up examinations. 02/04/[address] Monzon -He was admitted to the colorectal surgery service, started on IV fluids and IV antibiotics -Interventional Radiology was consulted on 02/05 to perform an image-guided drain placement to the collection. However, the collection was too small to be drained. Since he continued to have pain in his suprapubic area, a bedside I&D was performed. 02/14/[address] Mullins This has been closed for about one month and no issues. He had a colonoscopy and had some diversion proctitis and friabillity (and on blood thinners), therefore that is clear. PLAN: as above. See me prn and scope in 5- years. Continue to follow up with PCM 11/01/2020 Colonoscopy Impression: - Anal stricture found on digital rectal exam. - Friability with no bleeding in the Romie pouch. - No specimens collected. s/p 07/20/2019 (francesca) 1. Exploratory laparotomy. 2. Extensive lysis of adhesions greater than 1 hour. 3. Takedown of enterocutaneous fistula with small bowel resection and primary anastomosis. 4. Takedown of Romie's cutaneous fistula with proctectomy and ultra-low Romie's pouch. 5. Flexible sigmoidoscopy Quit smoking 5-6 years ago. Hx: HTN, CVA, Bladder CA, Afib, Anxiety Physical Exam: There were no vitals taken for this visit. General - awake, alert, no acute distress Abdominal - soft, TTP around ECF with notable erythema and pus drainage, Q tip inserted ~3cm deep; abdomen non-distended; urostomy pouched with CYU, ostomy pouched with brown liquid stool in bag Assessment Medical Decision Making: Assessment & Diagnosis: Javier Johnson is a 76 year old male here today for follow up with findings concerning for recurrence of ECF. Notable erythema and tenderness surrounding site. Data Reviewed: Tests & Documents Reviewed/ordered: Review of prior notes from recent hospital admission; reviewed XR small bowel series, CTAP, MRI AP I have independently interpreted: CT Abdomen, CT Pelvis, MRI Abdomen, MRI Pelvis, Abnormal X-Rays I have discussed Javier Johnson's treatment plan and/or results with him and his . Treatment plan: -Will prescribe 2 weeks of Augmentin for management of cellulitis -Advise patient to follow up with Urology to r/o bladder Ca recurrence; will schedule follow up in our office after -Continue with routine stoma care Risk of morbidity, mortality and/or complications of treatment plan: moderate Associated attestation - John Mullins MD - 03/13/2022 3:34 PM EDT [facility] STAFF PHYSICIAN NOTE OF PERSONAL INVOLVEMENT IN CARE I have reviewed the progress note obtained and documented by the resident and I personally participated in the machado components. I have discussed the case and management of the patient's care. The following comments revise or confirm relevant machado components of their note. IMPRESSION: This is a 76 year old male who presents with history of ECF and now with recurrence and documented by radiographs. On examination, the lower midline wound where the prior is and was healed is draining some effluent and intermittently he says it is bilious. There is some erythema of the skin and I probed it and tracts as prior. Of note, he says this started after the prior intermittent drainage from the rectum stopped. PLAN: Will give 2 weeks of antibiotics. He refused the scope and the GGE to look at the romie's and to see the cavity that had been there prior. I asked him to see urology as he has a history of bladder cancer and while the CT doesn't show it, to de maia fistulize from small bowel could be mechanical or tumor recurrence and want to ensure it is not the latter. Needs to continue with CRC scope screening He has a follow up with the lung and renal lesions already. I also told him that he may need to have an exploration for resection to see the source and fix the fistula. THey would like to avoid that if possible. He will follow up with me after urology. Plan of care discussed with Patient and Family/Significant Other: CARE COORDINATION: Consult urology for opinion and advice regarding to ensure no bladder cancer recurrence SIGNATURE: John Mullins MD DATE of SERVICE: March 13, 2022 TIME of SERVICE: 3:27 PM documented in this encounter [facility] 02-12-2022 Miscellaneous Notes Pt and cg decline admission to home health; pt and cg independent with care. Fistula is now covered with a bandaid and not draining. documented in this encounter [facility] 02-10-2022 Miscellaneous Notes SN met with pt and his spouse in their home. Pt and spouse have been independent with ileal conduit and colostomy care since 2016. Pt and spouse do not feel that home health is necessary. Pt has battled with fistula care since 2016 and it has been intermiitent. Pt currently has covered with a bandaid and there is no active drainage. Pt and spouse appreciate this SN vs but are comfortable with home management of current needs. This SN agrees. documented in this encounter [facility] 02-09-2022 Miscellaneous Notes Welcome Home Call: a. Date and Time: 11:48 AM 02/09/2022 b. Contact name/relationship: , ZAIN, RETURNED CALL c.Have you been active with any Home Care company in the last 60 days? No. d. Are you interesting in initiated services with [facility]? YES (yes or no) e. Do you have any upcoming appointments in the next few days, or restrictions to your schedule? NO f. We would come to see you in 24-48* from your discharge today; Are you agreeable to a visit in that time frame? YES (Yes/ No (if no, when would you like to be seen?)) Please keep our your medications both over the counter and prescribed out for the home care to review, your hospital discharge instructions and write down any questions you might have. Our clinicians will call you the night before or the morning of the appointment. Their # may come up restricted but they'll leave a VM for you. In case you have any questions or concerns in the meantime, our # is [phone], option 1 (need to confirm) Thank you for your time and have a great day. Raven Veliz Alley Tender Call placed to at [phone] per care team instructions. No answer, message left with my direct line for a call back. I will also try to call again later today. documented in this encounter [facility] 02-08-2022 Miscellaneous Notes Spoke to Mike at PCP office. Dr Carlisle no longer practices there, she will speak to another attending in the office to confirm if they will follow for home care. Mikaela Gonzalez LPN Central Admissions Intake Nurse documented in this encounter [facility] 02-08-2022 Miscellaneous Notes Left voice message at [phone] requesting a call back to confirm SOC Mikaela Gonzalez LPN Central Admissions Intake Nurse documented in this encounter [facility] 02-02-2022 Miscellaneous Notes Patient wants to be scheduled at [facility] to see if can get in for MRI sooner. Faxed order to [facility] Patient to call and schedule follow up visit with Dr Michele after MRI. Spoke with scheduling at [facility], they will call patient to schedule MRI after insurance approval. Update patients Carley, verbalized understanding Kristal Magallon LPN Called patient spoke to updated and was forwarded to [facility] Tigist to be scheduled for MRI and office appointment Called from damien goodwin. Patient still having pain and concerned about a hernia. We will order an MRI of his abdomen and discuss with hernia specialists after MRI obtained Please call and schedule for an office visit. Please contact the patient and have him schedule an MRI and then follow up in my office. Thanks Rich documented in this encounter [facility] 01-25-2022 Miscellaneous Notes Images from the original note were not included. Melly Michele MD You 22 hours ago (2:49 PM) Please let the patient know that it is hard to determine if there is a hernia or not given his hip replacements. Have him follow up so I can reexamine the area. Called Javier and spoke with his , Zain. Reviewed Dr. Michele's message with her. Zain stated that if we decide to come back, we will call and she hung up on me. Gogo Murguia RN Javier's , Zain called. She would like to know if you had a chance to review Javier's CT scan from [facility] and what their next steps are. The CT scan images from [facility] have been pushed and are in Epic. Gogo Murguia RN documented in this encounter [facility] 01-18-2022 History of Present illness Narrative HISTORY AND PHYSICAL Javier Johnson 1945 REFERRING PHYSICIAN: Self CHIEF COMPLAINT: Consult (Inguinal Hernia) HPI: The patient is a 76 year old male with a complaint of lower abdominal pain in the suprapubic area. The patient was lifting cement bags at his house approximately a week ago when he noted pain in that location. Patient has a very complex past medical history. The patient is a 73-year-old male who was diagnosed with bladder cancer. In July 2016, the patient underwent surgical procedure in [facility]. he underwent prostatectomy with ileal conduit. This was apparently complicated I a sigmoid colon injury for which she had a colostomy with Amado's pouch performed. The patient states he was discharged to home on 5 days postoperatively and had prior to discharge had partial dehiscence of his skin closed with what sounds like Steri-Strips. At home the patient states he had further opening of the wound and had to go back to the hospital. He then states he was taken back to the operating suite. He understands mesh was placed in the incision at that time. Hospital records from [facility] where he been recently treated for wound care discusses what sounds possibly like a fistula which apparently closed after some time. In May 2017 he underwent attempted colostomy takedown/reversal but then again had drainage and had re-creation of colostomy in [place] in July [address] Augie Lerma. The patient had a persistent lower midline fistula which was treated in the wound center. The patient underwent colonoscopy through the stoma and sigmoidoscopy on January 06, 2018 which demonstrated no specific colonic abnormalities. The colon length was judged to be 65 cm from stoma to cecum?. The Amado's pouch was noted to be 15 cm long there was an area of granulation tissue at the apex but no obvious tracking was noted. With extensive wound care and occasional drainage from his fistula tract, wound exploration was performed by Dr. Elmo Johnston in November 03, 2018. He had excision of a fistula track but this did not seem to track into the peritoneal cavity. The superficial track was excised and closed. his most recent visit to the wound Center in [facility] was around early December, cellulitis on the lower abdomen near the base of the penis, a CT scan of the abdomen and pelvis was obtained. This was somewhat challenging due to bilateral hip replacement but cellulitis with a probable abscess was noted. my review the CT scan images demonstrate the area of cellulitis. It's difficult to assess whether there is an abscess again due to the hip prosthesis. There appears to me to be a layer of material just below the rectus muscle which appears to be consistent with mesh. the patient was not clinically septic. His white count was 7.1.he remained afebrile. I was consulted. Upon visiting the patient when he was purulent material draining from his lower wound which was rather copious. After evaluating the patient, I ordered a CT fistulogram to be obtained. an 8 Czech Tsai catheter was placed in the fistulous tract and contrast media was injected. This demonstrated the fistula tract tracking into a collection located in the abdominal wall which then communicated directly to the rectal stump. the patient notes a history of atrial fibrillation and 3 prior CVAs. His medication list includes atorvastatin, metoprolol, multivitamin and warfarin. I do not have copies of his original surgical procedures from [place]. The patient has signed a consent form and we will fax request for those records. I discussed the above case with Dr. Mullins, colorectal surgery, [facility] who agrees the patient will need complex surgical procedure to address this issue. Patient underwent on extensive lysis of adhesions with small bowel resection and revision and resection of rectal stump August 20, 2019 had an extensive lysis adhesions which was greater than 1 hour. 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 The patient returns after his hospitalization. He notes no significant drainage from his abdominal incision currently. I performed colonoscopy through his stoma and endoscopy into the Amado's pouch on November 01, 2020. The patient was found to have an anal stricture on digital rectal exam friability but no other bleeding noted in the Amado's pouch. Colonoscopy itself through the stoma to the cecum was unremarkable Overall the patient is doing well until he attempted to lift the cement bags. The patient is being seen by me today at the request of Dr. Seng Carlisle DO for my opinion and advice regarding lower abdominal pain. [facility] emergency department had a CT scan of the abdomen pelvis on January 15, 2022. CT scan at that time demonstrated in stranding at the anterior abdominal wall in the suprapubic region with was felt to be a focal bowel loop visualized that location which stated could represent a herniation of the wall at the ascending colon area. I have the report of the CT scan but not the actual images. I am currently waiting for the images. This might be somewhat challenging to interpret as the patient had bilateral hip replacements and this obscured visualization of this area on prior CT scans obtained through the clinic. PAST MEDICAL HISTORY Diagnosis Date Anxiety Atrial fibrillation (HCC) Bladder cancer (HCC) BPH (benign prostatic hyperplasia) CVA (cerebral vascular accident) (HCC) x3 HTN (hypertension) Hypercholesteremia PAST SURGICAL HISTORY Procedure Laterality Date ANESTHESIA TOTAL CYSTECTOMY 2016 with prostate CATARACT EXTRACTION HX COLONOSCOPY SCRN NOT HIGH RISK 11/01/2020 EXCISION GANGLION WRIST DORSAL/VOLAR PRIMARY HEMIARTHROPLASTY HIP PARTIAL Left LX PARTIAL COLECTOMY MIDLINE INSERTION/CONSULT 07/26/2019 OSTOMY/HERNIA - REVISION reversal PARTIAL HIP REPLACEMENT Right SHOULDER SURGERY HX Left Current Outpatient Medications Medication Sig LISINOPRIL ORAL Take by mouth. amoxicillin-clavulanic acid (AUGMENTIN) 875-125 mg per tablet Take 1 tablet by mouth twice daily. POTASSIUM ORAL Take by mouth once daily. 20 BID warfarin (COUMADIN) 6 mg tablet Take 6 mg by mouth daily as directed. atorvastatin (LIPITOR) 20 mg tablet Take 20 mg by mouth once daily. metoprolol succinate ER (TOPROL XL) 25 mg 24 hr tablet Take 25 mg by mouth once daily. MULTI-VITAMIN ORAL Take 1 tablet by mouth once daily. levoFLOXacin (LEVAQUIN) 500 mg tablet Take 500 mg by mouth once daily. acetaminophen (TYLENOL) 325 mg tablet Take 1-2 tablets by mouth every 6 hours as needed for Pain. (Patient not taking: Reported on 10/27/2019 ) ascorbic acid, vitamin C, (VITAMIN C) 500 mg tablet Take 500 mg by mouth twice daily. (Patient not taking: Reported on 01/18/2022 ) No current facility-administered medications for this visit. ALLERGIES: Azithromycin and Mobic [Meloxicam] PERSONAL HISTORY: Social History Tobacco Use Smoking status: Former Smoker Packs/day: 1.00 Years: 50.00 Pack years: 50.00 Types: Cigarettes Quit date: 04/07/2015 Years since quittin.7 Smokeless tobacco: Current User Types: Chew Vaping Use Vaping Use: Never used Substance Use Topics Alcohol use: Not Currently Drug use: Never FAMILY HISTORY: History reviewed. No pertinent family history. REVIEW OF SYMPTOMS: The review of systems data was entered by the nurse and reviewed by nj Nursing Notes: Skyla Carvalhoz 01/18/2022 7:38 AM Signed REVIEW OF SYSTEMS: General: The patient NOTES fatigue, denies weight loss, denies weight gain, denies feeling hot, and denies feelings of cold. Eyes: The patient denies glaucoma, NOTES eye injury/surgery, wears glasses or contacts. Ear/Nose/Throat: The patient NOTES allergies, denies hayfever, denies ear infections, and denies bloody noses. Cardiovascular: The patient denies chest pain, denies heart disease, NOTES high blood pressure,denies cardiac stent, denies prior heart attack, denies irregular heart beat, NOTES high cholesterol, denies poor circulation, denies heart failure, other cardiac issues,NOTES AFib denies claudication, denies cold feet, denies peripheral arterial stent. Respiratory: The patient denies tuberculosis, denies pneumonia, denies frequent cough, denies pulmonary embolism, denies shortness of breath, and denies coughing up blood. Gastrointestinal: The patient denies difficulty swallowing, denies acid reflux, denies ulcers, denies vomiting, denies jaundice/hepatitis, denies gallbladder problems, denies black or tarry stools, denies hemorrhoids, denies bleeding from rectum, denies diverticulitis, denies constipation, denies diarrhea, denies loss of stool control, and NOTES hernias. Kidney/Bladder: The patient denies kidney stones, denies urine infections, and denies bloody urine. Skin: The patient denies a history of skin cancer, denies bleeding/changing moles, and denies a history of skin rash. Neurologic: The patient denies a history of epilepsy/convulsions, NOTES headaches, denies head/spinal injuries, and denies stroke/TIA. Psychiatric: The patient denies psychiatric medications, NOTES depression, and denies voices, denies substance abuse. Endocrine: The patient denies thyroid disorders, denies diabetes, and denies hormonal problems. Hematologic: The patient NOTES a history of bruising, NOTES bleeding, and denies anemia, denies blood clots. Infections: The patient denies a history of measles and mumps, denies rheumatic fever, and denies sexually transmitted diseases. Musculoskeletal: The patient denies back pain/injury, denies back problems, denies sciatica, denies knee/foot trouble, NOTES arthritis, or denies gout. When was patient's last Mammogram screening? N/A Last Colonoscopy: 11/01/2020 Skyla Wright PHYSICAL EXAMINATION: General: The patient is 76 year old male, well nourished, well hydrated in no acute distress. The patient is oriented to time, place, and person. VITALS: Blood pressure 148/73, pulse 80, temperature 36.3 C (97.4 F), height 172.7 cm (5' 8), weight 85.3 kg (188 lb), SpO2 99 %. HEENT: Normal cephalic, ataumatic, pupils are equally round, sclera are anicteric, mucous membranes are moist, oropharynx is clear. Neck has no masses, asymmetry or lymphadenopathy. Thyroid is unremarkable. Respiratory: Clear to auscultation and percussion. Normal respiratory excursion and pattern. Cardiac: Examination is regular rate and rhythm. Abdominal exam: Soft, he is tender in the lower midline area with concern for a suprapubic hernia. Patient has a functioning right lower quadrant urostomy and left lower quadrant stoma. His midline incision demonstrates scar tissue consistent with the dehiscence and open wound with secondary healing no obvious fistulas other difficulties currently. Rectal exam: exam deferred Extremities: no clubbing, cyanosis or edema. No adenopathy. Other: LABORATORY VALUES: As Noted RADIOLOGIC STUDIES: As Noted Assessment IMPRESSION: Suprapubic discomfort, hopefully abdominal wall strain from lifting cement. Possibly progressing hernia. PLAN: I asked the patient to avoid heavy lifting. He should try nonsteroidals rest in the area and ice or heat if that helps. I will contact the patient once I know to review the images from [facility] and compare this to his previous scans. Diagnoses: (R10.30) Lower abdominal pain (primary encounter diagnosis) A letter was sent to Dr. Seng Carlisle DO indicating the above finding for this patient. Return to Clinic: The patient is instructed to follow-up with me as needed. Melly Michele MD documented in this encounter [facility] 01-18-2022 Nurse Note REVIEW OF SYSTEMS: General: The patient NOTES fatigue, denies weight loss, denies weight gain, denies feeling hot, and denies feelings of cold. Eyes: The patient denies glaucoma, NOTES eye injury/surgery, wears glasses or contacts. Ear/Nose/Throat: The patient NOTES allergies, denies hayfever, denies ear infections, and denies bloody noses. Cardiovascular: The patient denies chest pain, denies heart disease, NOTES high blood pressure,denies cardiac stent, denies prior heart attack, denies irregular heart beat, NOTES high cholesterol, denies poor circulation, denies heart failure, other cardiac issues,NOTES AFib denies claudication, denies cold feet, denies peripheral arterial stent. Respiratory: The patient denies tuberculosis, denies pneumonia, denies frequent cough, denies pulmonary embolism, denies shortness of breath, and denies coughing up blood. Gastrointestinal: The patient denies difficulty swallowing, denies acid reflux, denies ulcers, denies vomiting, denies jaundice/hepatitis, denies gallbladder problems, denies black or tarry stools, denies hemorrhoids, denies bleeding from rectum, denies diverticulitis, denies constipation, denies diarrhea, denies loss of stool control, and NOTES hernias. Kidney/Bladder: The patient denies kidney stones, denies urine infections, and denies bloody urine. Skin: The patient denies a history of skin cancer, denies bleeding/changing moles, and denies a history of skin rash. Neurologic: The patient denies a history of epilepsy/convulsions, NOTES headaches, denies head/spinal injuries, and denies stroke/TIA. Psychiatric: The patient denies psychiatric medications, NOTES depression, and denies voices, denies substance abuse. Endocrine: The patient denies thyroid disorders, denies diabetes, and denies hormonal problems. Hematologic: The patient NOTES a history of bruising, NOTES bleeding, and denies anemia, denies blood clots. Infections: The patient denies a history of measles and mumps, denies rheumatic fever, and denies sexually transmitted diseases. Musculoskeletal: The patient denies back pain/injury, denies back problems, denies sciatica, denies knee/foot trouble, NOTES arthritis, or denies gout. When was patient's last Mammogram screening? N/A Last Colonoscopy: 11/01/2020 Skyla Wright documented in this encounter [facility] 07-31-2019 History of Past i llness Narrative Problem Noted Date Resolved Date Hyponatremia 07/31/2019 07/31/2019 Last Assessment & Plan: PLAN: Trend nA Hypophosphatemia 07/22/2019 07/28/2019 Last Assessment & Plan: PLAN: Replete phos>2.5 Hypokalemia 07/22/2019 07/24/2019 Last Assessment & Plan: PLAN: Replete k>4 Postoperative ileus 07/22/2019 07/31/2019 Last Assessment & Plan: Assessment: NG tube removed 07/26, resolving ileus PLAN: -clears as tolerated -CT A/P 07/28 postoperative ileus, gas in colon -continue miralax -continue entereg Hypomagnesemia 07/21/2019 07/21/2019 documented as of this encounter (statuses as of 01/21/2022) [facility] History of Past illness Narrative* Problem Noted Date Resolved Date Hyponatremia 07/31/2019 07/31/2019 Last Assessment & Plan: PLAN: Trend nA Hypophosphatemia 07/22/2019 07/28/2019 Last Assessment & Plan: PLAN: Replete phos>2.5 Hypokalemia 07/22/2019 07/24/2019 Last Assessment & Plan: PLAN: Replete k>4 Postoperative ileus 07/22/2019 07/31/2019 Last Assessment & Plan: Assessment: NG tube removed 07/26, resolving ileus PLAN: -clears as tolerated -CT A/P 07/28 postoperative ileus, gas in colon -continue miralax -continue entereg Hypomagnesemia 07/21/2019 07/21/2019 documented as of this encounter (statuses as of 01/25/2022) [facility] History of Past illness Narrative* Problem Noted Date Resolved Date Hyponatremia 07/31/2019 07/31/2019 Last Assessment & Plan: PLAN: Trend nA Hypophosphatemia 07/22/2019 07/28/2019 Last Assessment & Plan: PLAN: Replete phos>2.5 Hypokalemia 07/22/2019 07/24/2019 Last Assessment & Plan: PLAN: Replete k>4 Postoperative ileus 07/22/2019 07/31/2019 Last Assessment & Plan: Assessment: NG tube removed 07/26, resolving ileus PLAN: -clears as tolerated -CT A/P 07/28 postoperative ileus, gas in colon -continue miralax -continue entereg Hypomagnesemia 07/21/2019 07/21/2019 documented as of this encounter (statuses as of 02/02/2022) [facility] History of Past illness Narrative* Problem Noted Date Resolved Date Hyponatremia 07/31/2019 07/31/2019 Last Assessment & Plan: PLAN: Trend nA Hypophosphatemia 07/22/2019 07/28/2019 Last Assessment & Plan: PLAN: Replete phos>2.5 Postoperative ileus 07/22/2019 07/31/2019 Last Assessment & Plan: Assessment: NG tube removed 07/26, resolving ileus PLAN: -clears as tolerated -CT A/P 07/28 postoperative ileus, gas in colon -continue miralax -continue entereg Hypomagnesemia 07/21/2019 07/21/2019 documented as of this encounter (statuses as of 02/08/2022) [facility] History of Past illness Narrative* Problem Noted Date Resolved Date Hyponatremia 07/31/2019 07/31/2019 Last Assessment & Plan: PLAN: Trend nA Hypophosphatemia 07/22/2019 07/28/2019 Last Assessment & Plan: PLAN: Replete phos>2.5 Postoperative ileus 07/22/2019 07/31/2019 Last Assessment & Plan: Assessment: NG tube removed 07/26, resolving ileus PLAN: -clears as tolerated -CT A/P 07/28 postoperative ileus, gas in colon -continue miralax -continue entereg Hypomagnesemia 07/21/2019 07/21/2019 documented as of this encounter (statuses as of 02/09/2022) [facility] History of Past illness Narrative* Problem Noted Date Resolved Date Hyponatremia 07/31/2019 07/31/2019 Last Assessment & Plan: PLAN: Trend nA Hypophosphatemia 07/22/2019 07/28/2019 Last Assessment & Plan: PLAN: Replete phos>2.5 Postoperative ileus 07/22/2019 07/31/2019 Last Assessment & Plan: Assessment: NG tube removed 07/26, resolving ileus PLAN: -clears as tolerated -CT A/P 07/28 postoperative ileus, gas in colon -continue miralax -continue entereg Hypomagnesemia 07/21/2019 07/21/2019 documented as of this encounter (statuses as of 02/12/2022) [facility] History of Past illness Narrative* Problem Noted Date Resolved Date Hyponatremia 07/31/2019 07/31/2019 Last Assessment & Plan: PLAN: Trend nA Hypophosphatemia 07/22/2019 07/28/2019 Last Assessment & Plan: PLAN: Replete phos>2.5 Postoperative ileus 07/22/2019 07/31/2019 Last Assessment & Plan: Assessment: NG tube removed 07/26, resolving ileus PLAN: -clears as tolerated -CT A/P 07/28 postoperative ileus, gas in colon -continue miralax -continue entereg Hypomagnesemia 07/21/2019 07/21/2019 documented as of this encounter (statuses as of 02/12/2022) [facility]11-01-2019 History of Past illness Narrative* Problem Noted Date Resolved Date Hyponatremia 07/31/2019 07/31/2019 Last Assessment & Plan: PLAN: Trend nA Hypophosphatemia 07/22/2019 07/28/2019 Last Assessment & Plan: PLAN: Replete phos>2.5 Postoperative ileus 07/22/2019 07/31/2019 Last Assessment & Plan: Assessment: NG tube removed 07/26, resolving ileus PLAN: -clears as tolerated -CT A/P 07/28 postoperative ileus, gas in colon -continue miralax -continue entereg Hypomagnesemia 07/21/2019 07/21/2019 documented as of this encounter (statuses as of 02/13/2022) [facility]11-01-2019 History of Past illness Narrative* Problem Noted Date Resolved Date Hyponatremia 07/31/2019 07/31/2019 Last Assessment & Plan: PLAN: Trend nA Hypophosphatemia 07/22/2019 07/28/2019 Last Assessment & Plan: PLAN: Replete phos>2.5 Postoperative ileus 07/22/2019 07/31/2019 Last Assessment & Plan: Assessment: NG tube removed 07/26, resolving ileus PLAN: -clears as tolerated -CT A/P 07/28 postoperative ileus, gas in colon -continue miralax -continue entereg Hypomagnesemia 07/21/2019 07/21/2019 documented as of this encounter (statuses as of 03/13/2022) [facility]11-01-2019 History of Past illness Narrative* Problem Noted Date Resolved Date Hyponatremia 07/31/2019 07/31/2019 Last Assessment & Plan: PLAN: Trend nA Hypophosphatemia 07/22/2019 07/28/2019 Last Assessment & Plan: PLAN: Replete phos>2.5 Postoperative ileus 07/22/2019 07/31/2019 Last Assessment & Plan: Assessment: NG tube removed 07/26, resolving ileus PLAN: -clears as tolerated -CT A/P 07/28 postoperative ileus, gas in colon -continue miralax -continue entereg Hypomagnesemia 07/21/2019 07/21/2019 documented as of this encounter (statuses as of 03/25/2022) [facility]-01-2019 History of Past illness Narrative* Problem Noted Date Resolved Date Hyponatremia 07/31/2019 07/31/2019 Last Assessment & Plan: PLAN: Trend nA Hypophosphatemia 07/22/2019 07/28/2019 Last Assessment & Plan: PLAN: Replete phos>2.5 Postoperative ileus 07/22/2019 07/31/2019 Last Assessment & Plan: Assessment: NG tube removed 07/26, resolving ileus PLAN: -clears as tolerated -CT A/P 07/28 postoperative ileus, gas in colon -continue miralax -continue entereg Hypomagnesemia 07/21/2019 07/21/2019 documented as of this encounter (statuses as of 03/26/2022) [facility]-01-2019 History of Past illness Narrative* Problem Noted Date Resolved Date Hyponatremia 07/31/2019 07/31/2019 Last Assessment & Plan: PLAN: Trend nA Hypophosphatemia 07/22/2019 07/28/2019 Last Assessment & Plan: PLAN: Replete phos>2.5 Postoperative ileus 07/22/2019 07/31/2019 Last Assessment & Plan: Assessment: NG tube removed 07/26, resolving ileus PLAN: -clears as tolerated -CT A/P 07/28 postoperative ileus, gas in colon -continue miralax -continue entereg Hypomagnesemia 07/21/2019 07/21/2019 documented as of this encounter (statuses as of 03/29/2022) [facility]-01-2019 History of Past illness Narrative* Problem Noted Date Resolved Date Hyponatremia 07/31/2019 07/31/2019 Last Assessment & Plan: PLAN: Trend nA Hypophosphatemia 07/22/2019 07/28/2019 Last Assessment & Plan: PLAN: Replete phos>2.5 Postoperative ileus 07/22/2019 07/31/2019 Last Assessment & Plan: Assessment: NG tube removed 07/26, resolving ileus PLAN: -clears as tolerated -CT A/P 07/28 postoperative ileus, gas in colon -continue miralax -continue entereg Hypomagnesemia 07/21/2019 07/21/2019 documented as of this encounter (statuses as of 04/10/2022) [facility]-2019 History of Past illness Narrative* Problem Noted Date Resolved Date Hyponatremia 07/31/2019 07/31/2019 Last Assessment & Plan: PLAN: Trend nA Hypophosphatemia 07/22/2019 07/28/2019 Last Assessment & Plan: PLAN: Replete phos>2.5 Postoperative ileus 07/22/2019 07/31/2019 Last Assessment & Plan: Assessment: NG tube removed 07/26, resolving ileus PLAN: -clears as tolerated -CT A/P 07/28 postoperative ileus, gas in colon -continue miralax -continue entereg Hypomagnesemia 07/21/2019 07/21/2019 documented as of this encounter (statuses as of 04/18/2022) [facility]-2019 History of Past illness Narrative* Problem Noted Date Resolved Date Hyponatremia 07/31/2019 07/31/2019 Last Assessment & Plan: PLAN: Trend nA Hypophosphatemia 07/22/2019 07/28/2019 Last Assessment & Plan: PLAN: Replete phos>2.5 Postoperative ileus 07/22/2019 07/31/2019 Last Assessment & Plan: Assessment: NG tube removed 07/26, resolving ileus PLAN: -clears as tolerated -CT A/P 07/28 postoperative ileus, gas in colon -continue miralax -continue entereg Hypomagnesemia 07/21/2019 07/21/2019 documented as of this encounter (statuses as of 04/19/2022) [facility]-01-2019 History of Past illness Narrative* Problem Noted Date Resolved Date Hyponatremia 07/31/2019 07/31/2019 Last Assessment & Plan: PLAN: Trend nA Hypophosphatemia 07/22/2019 07/28/2019 Last Assessment & Plan: PLAN: Replete phos>2.5 Postoperative ileus 07/22/2019 07/31/2019 Last Assessment & Plan: Assessment: NG tube removed 07/26, resolving ileus PLAN: -clears as tolerated -CT A/P 07/28 postoperative ileus, gas in colon -continue miralax -continue entereg Hypomagnesemia 07/21/2019 07/21/2019 documented as of this encounter (statuses as of 04/23/2022) [facility]2019 History of Past illness Narrative* Problem Noted Date Resolved Date Hyponatremia 07/31/2019 07/31/2019 Last Assessment & Plan: PLAN: Trend nA Hypophosphatemia 07/22/2019 07/28/2019 Last Assessment & Plan: PLAN: Replete phos>2.5 Hypokalemia 07/22/2019 05/02/2022 Last Assessment & Plan: PLAN: Replete k>4 Postoperative ileus 07/22/2019 07/31/2019 Last Assessment & Plan: Assessment: NG tube removed 07/26, resolving ileus PLAN: -clears as tolerated -CT A/P 07/28 postoperative ileus, gas in colon -continue miralax -continue entereg Hypomagnesemia 07/21/2019 05/02/2022 documented as of this encounter (statuses as of 05/09/2022) [facility]01-2019 History of Past illness Narrative* Problem Noted Date Resolved Date Hyponatremia 07/31/2019 07/31/2019 Last Assessment & Plan: PLAN: Trend nA Hypophosphatemia 07/22/2019 07/28/2019 Last Assessment & Plan: PLAN: Replete phos>2.5 Hypokalemia 07/22/2019 05/02/2022 Last Assessment & Plan: PLAN: Replete k>4 Postoperative ileus 07/22/2019 07/31/2019 Last Assessment & Plan: Assessment: NG tube removed 07/26, resolving ileus PLAN: -clears as tolerated -CT A/P 07/28 postoperative ileus, gas in colon -continue miralax -continue entereg Hypomagnesemia 07/21/2019 05/02/2022 documented as of this encounter (statuses as of 05/17/2022) [facility]2019 History of Past illness Narrative* Problem Noted Date Resolved Date Hyponatremia 07/31/2019 07/31/2019 Last Assessment & Plan: PLAN: Trend nA Hypophosphataemia 07/22/2019 05/21/2022 Last Assessment & Plan: PLAN: Replete phos>2.5 Hypokalemia 07/22/2019 05/21/2022 Last Assessment & Plan: PLAN: Replete k>4 Postoperative ileus 07/22/2019 07/31/2019 Last Assessment & Plan: Assessment: NG tube removed 07/26, resolving ileus PLAN: -clears as tolerated -CT A/P 07/28 postoperative ileus, gas in colon -continue miralax -continue entereg Hypomagnesemia 07/21/2019 05/02/2022 documented as of this encounter (statuses as of 05/21/2022) [facility]2019 History of Past illness Narrative* Problem Noted Date Resolved Date Hyponatremia 07/31/2019 07/31/2019 Last Assessment & Plan: PLAN: Trend nA Hypophosphataemia 07/22/2019 05/21/2022 Last Assessment & Plan: PLAN: Replete phos>2.5 Hypokalemia 07/22/2019 05/21/2022 Last Assessment & Plan: PLAN: Replete k>4 Postoperative ileus 07/22/2019 07/31/2019 Last Assessment & Plan: Assessment: NG tube removed 07/26, resolving ileus PLAN: -clears as tolerated -CT A/P 07/28 postoperative ileus, gas in colon -continue miralax -continue entereg Hypomagnesemia 07/21/2019 05/02/2022 documented as of this encounter (statuses as of 05/23/2022) [facility]2019 History of Past illness Narrative* Problem Noted Date Resolved Date Hyponatremia 07/31/2019 07/31/2019 Last Assessment & Plan: PLAN: Trend nA Hypophosphataemia 07/22/2019 05/21/2022 Last Assessment & Plan: PLAN: Replete phos>2.5 Hypokalemia 07/22/2019 05/21/2022 Last Assessment & Plan: PLAN: Replete k>4 Postoperative ileus 07/22/2019 07/31/2019 Last Assessment & Plan: Assessment: NG tube removed 07/26, resolving ileus PLAN: -clears as tolerated -CT A/P 07/28 postoperative ileus, gas in colon -continue miralax -continue entereg Hypomagnesemia 07/21/2019 05/02/2022 documented as of this encounter (statuses as of 05/31/2022) [facility]2019 History of Past illness Narrative* Problem Noted Date Resolved Date Hyponatremia 07/31/2019 07/31/2019 Last Assessment & Plan: PLAN: Trend nA Hypophosphataemia 07/22/2019 05/21/2022 Last Assessment & Plan: PLAN: Replete phos>2.5 Hypokalemia 07/22/2019 05/21/2022 Last Assessment & Plan: PLAN: Replete k>4 Postoperative ileus 07/22/2019 07/31/2019 Last Assessment & Plan: Assessment: NG tube removed 07/26, resolving ileus PLAN: -clears as tolerated -CT A/P 07/28 postoperative ileus, gas in colon -continue miralax -continue entereg Hypomagnesemia 07/21/2019 05/02/2022 documented as of this encounter (statuses as of 06/04/2022) [facility]2019 History of Past illness Narrative* Problem Noted Date Resolved Date Hyponatremia 07/31/2019 07/31/2019 Last Assessment & Plan: PLAN: Trend nA Hypophosphataemia 07/22/2019 05/21/2022 Last Assessment & Plan: PLAN: Replete phos>2.5 Hypokalemia 07/22/2019 05/21/2022 Last Assessment & Plan: PLAN: Replete k>4 Postoperative ileus 07/22/2019 07/31/2019 Last Assessment & Plan: Assessment: NG tube removed 07/26, resolving ileus PLAN: -clears as tolerated -CT A/P 07/28 postoperative ileus, gas in colon -continue miralax -continue entereg Hypomagnesemia 07/21/2019 05/02/2022 documented as of this encounter (statuses as of 06/07/2022) [facility]2019 History of Past illness Narrative* Problem Noted Date Resolved Date Hyponatremia 07/31/2019 07/31/2019 Last Assessment & Plan: PLAN: Trend nA Hypophosphataemia 07/22/2019 05/21/2022 Last Assessment & Plan: PLAN: Replete phos>2.5 Hypokalemia 07/22/2019 05/21/2022 Last Assessment & Plan: PLAN: Replete k>4 Postoperative ileus 07/22/2019 07/31/2019 Last Assessment & Plan: Assessment: NG tube removed 07/26, resolving ileus PLAN: -clears as tolerated -CT A/P 07/28 postoperative ileus, gas in colon -continue miralax -continue entereg Hypomagnesemia 07/21/2019 05/02/2022 documented as of this encounter (statuses as of 06/08/2022) [facility]2019 History of Past illness Narrative* Problem Noted Date Resolved Date Hyponatremia 07/31/2019 07/31/2019 Last Assessment & Plan: PLAN: Trend nA Hypophosphataemia 07/22/2019 05/21/2022 Last Assessment & Plan: PLAN: Replete phos>2.5 Hypokalemia 07/22/2019 05/21/2022 Last Assessment & Plan: PLAN: Replete k>4 Postoperative ileus 07/22/2019 07/31/2019 Last Assessment & Plan: Assessment: NG tube removed 07/26, resolving ileus PLAN: -clears as tolerated -CT A/P 07/28 postoperative ileus, gas in colon -continue miralax -continue entereg Hypomagnesemia 07/21/2019 05/02/2022 documented as of this encounter (statuses as of 06/08/2022) [facility]01[facility]2019 History of Past illness Narrative* Problem Noted Date Resolved Date Hyponatremia 07/31/2019 07/31/2019 Last Assessment & Plan: PLAN: Trend nA Hypophosphataemia 07/22/2019 05/21/2022 Last Assessment & Plan: PLAN: Replete phos>2.5 Hypokalemia 07/22/2019 05/21/2022 Last Assessment & Plan: PLAN: Replete k>4 Postoperative ileus 07/22/2019 07/31/2019 Last Assessment & Plan: Assessment: NG tube removed 07/26, resolving ileus PLAN: -clears as tolerated -CT A/P 07/28 postoperative ileus, gas in colon -continue miralax -continue entereg Hypomagnesemia 07/21/2019 05/02/2022 documented as of this encounter (statuses as of 06/08/2022) [facility]-01-2019 History of Past illness Narrative* Problem Noted Date Resolved Date Hyponatremia 07/31/2019 07/31/2019 Last Assessment & Plan: PLAN: Trend nA Hypophosphataemia 07/22/2019 05/21/2022 Last Assessment & Plan: PLAN: Replete phos>2.5 Hypokalemia 07/22/2019 05/21/2022 Last Assessment & Plan: PLAN: Replete k>4 Postoperative ileus 07/22/2019 07/31/2019 Last Assessment & Plan: Assessment: NG tube removed 07/26, resolving ileus PLAN: -clears as tolerated -CT A/P 07/28 postoperative ileus, gas in colon -continue miralax -continue entereg Hypomagnesemia 07/21/2019 05/02/2022 documented as of this encounter (statuses as of 06/15/2022) [facility]01-2019 History of Past illness Narrative* Problem Noted Date Resolved Date Hyponatremia 07/31/2019 07/31/2019 Last Assessment & Plan: PLAN: Trend nA Hypophosphataemia 07/22/2019 05/21/2022 Last Assessment & Plan: PLAN: Replete phos>2.5 Hypokalemia 07/22/2019 05/21/2022 Last Assessment & Plan: PLAN: Replete k>4 Postoperative ileus 07/22/2019 07/31/2019 Last Assessment & Plan: Assessment: NG tube removed 07/26, resolving ileus PLAN: -clears as tolerated -CT A/P 07/28 postoperative ileus, gas in colon -continue miralax -continue entereg Hypomagnesemia 07/21/2019 05/02/2022 documented as of this encounter (statuses as of 06/15/2022) [facility]01[facility]2019 History of Past illness Narrative* Problem Noted Date Resolved Date Hyponatremia 07/31/2019 07/31/2019 Last Assessment & Plan: PLAN: Trend nA Hypophosphataemia 07/22/2019 05/21/2022 Last Assessment & Plan: PLAN: Replete phos>2.5 Hypokalemia 07/22/2019 05/21/2022 Last Assessment & Plan: PLAN: Replete k>4 Postoperative ileus 07/22/2019 07/31/2019 Last Assessment & Plan: Assessment: NG tube removed 07/26, resolving ileus PLAN: -clears as tolerated -CT A/P 07/28 postoperative ileus, gas in colon -continue miralax -continue entereg Hypomagnesemia 07/21/2019 05/02/2022 documented as of this encounter (statuses as of 06/19/2022) [facility]2019 History of Past illness Narrative* Problem Noted Date Resolved Date Hyponatremia 07/31/2019 07/31/2019 Last Assessment & Plan: PLAN: Trend nA Hypophosphataemia 07/22/2019 05/21/2022 Last Assessment & Plan: PLAN: Replete phos>2.5 Hypokalemia 07/22/2019 05/21/2022 Last Assessment & Plan: PLAN: Replete k>4 Postoperative ileus 07/22/2019 07/31/2019 Last Assessment & Plan: Assessment: NG tube removed 07/26, resolving ileus PLAN: -clears as tolerated -CT A/P 07/28 postoperative ileus, gas in colon -continue miralax -continue entereg Hypomagnesemia 07/21/2019 05/02/2022 documented as of this encounter (statuses as of 06/20/2022) [facility]2019 History of Past illness Narrative* Problem Noted Date Resolved Date Hyponatremia 07/31/2019 07/31/2019 Last Assessment & Plan: PLAN: Trend nA Hypophosphataemia 07/22/2019 05/21/2022 Last Assessment & Plan: PLAN: Replete phos>2.5 Hypokalemia 07/22/2019 05/21/2022 Last Assessment & Plan: PLAN: Replete k>4 Postoperative ileus 07/22/2019 07/31/2019 Last Assessment & Plan: Assessment: NG tube removed 07/26, resolving ileus PLAN: -clears as tolerated -CT A/P 07/28 postoperative ileus, gas in colon -continue miralax -continue entereg Hypomagnesemia 07/21/2019 05/02/2022 documented as of this encounter (statuses as of 06/22/2022) [facility]2019 History of Past illness Narrative* Problem Noted Date Resolved Date Hyponatremia 07/31/2019 07/31/2019 Last Assessment & Plan: PLAN: Trend nA Hypophosphataemia 07/22/2019 05/21/2022 Last Assessment & Plan: PLAN: Replete phos>2.5 Hypokalemia 07/22/2019 05/21/2022 Last Assessment & Plan: PLAN: Replete k>4 Postoperative ileus 07/22/2019 07/31/2019 Last Assessment & Plan: Assessment: NG tube removed 07/26, resolving ileus PLAN: -clears as tolerated -CT A/P 07/28 postoperative ileus, gas in colon -continue miralax -continue entereg Hypomagnesemia 07/21/2019 05/02/2022 documented as of this encounter (statuses as of 06/28/2022) [facility]2019 History of Past illness Narrative* Problem Noted Date Resolved Date Hyponatremia 07/31/2019 07/31/2019 Last Assessment & Plan: PLAN: Trend nA Hypophosphataemia 07/22/2019 05/21/2022 Last Assessment & Plan: PLAN: Replete phos>2.5 Hypokalemia 07/22/2019 05/21/2022 Last Assessment & Plan: PLAN: Replete k>4 Postoperative ileus 07/22/2019 07/31/2019 Last Assessment & Plan: Assessment: NG tube removed 07/26, resolving ileus PLAN: -clears as tolerated -CT A/P 07/28 postoperative ileus, gas in colon -continue miralax -continue entereg Hypomagnesemia 07/21/2019 05/02/2022 documented as of this encounter (statuses as of 06/29/2022) [facility]2019 History of Past illness Narrative* Problem Noted Date Resolved Date Hyponatremia 07/31/2019 07/31/2019 Last Assessment & Plan: PLAN: Trend nA Hypophosphataemia 07/22/2019 05/21/2022 Last Assessment & Plan: PLAN: Replete phos>2.5 Hypokalemia 07/22/2019 05/21/2022 Last Assessment & Plan: PLAN: Replete k>4 Postoperative ileus 07/22/2019 07/31/2019 Last Assessment & Plan: Assessment: NG tube removed 07/26, resolving ileus PLAN: -clears as tolerated -CT A/P 07/28 postoperative ileus, gas in colon -continue miralax -continue entereg Hypomagnesemia 07/21/2019 05/02/2022 documented as of this encounter (statuses as of 07/04/2022) [facility]2019 History of Past illness Narrative* Problem Noted Date Resolved Date Hyponatremia 07/31/2019 07/31/2019 Last Assessment & Plan: PLAN: Trend nA Hypophosphataemia 07/22/2019 05/21/2022 Last Assessment & Plan: PLAN: Replete phos>2.5 Hypokalemia 07/22/2019 05/21/2022 Last Assessment & Plan: PLAN: Replete k>4 Postoperative ileus 07/22/2019 07/31/2019 Last Assessment & Plan: Assessment: NG tube removed 07/26, resolving ileus PLAN: -clears as tolerated -CT A/P 07/28 postoperative ileus, gas in colon -continue miralax -continue entereg Hypomagnesemia 07/21/2019 05/02/2022 documented as of this encounter (statuses as of 07/07/2022) [facility]2019 History of Past illness Narrative* Problem Noted Date Resolved Date Hyponatremia 07/31/2019 07/31/2019 Last Assessment & Plan: PLAN: Trend nA Hypophosphataemia 07/22/2019 05/21/2022 Last Assessment & Plan: PLAN: Replete phos>2.5 Hypokalemia 07/22/2019 05/21/2022 Last Assessment & Plan: PLAN: Replete k>4 Postoperative ileus 07/22/2019 07/31/2019 Last Assessment & Plan: Assessment: NG tube removed 07/26, resolving ileus PLAN: -clears as tolerated -CT A/P 07/28 postoperative ileus, gas in colon -continue miralax -continue entereg Hypomagnesemia 07/21/2019 05/02/2022 documented as of this encounter (statuses as of 08/30/2022) [facility]2019 History of Past illness Narrative* Problem Noted Date Resolved Date Hyponatremia 07/31/2019 07/31/2019 Last Assessment & Plan: PLAN: Trend nA Hypophosphataemia 07/22/2019 05/21/2022 Last Assessment & Plan: PLAN: Replete phos>2.5 Hypokalemia 07/22/2019 05/21/2022 Last Assessment & Plan: PLAN: Replete k>4 Postoperative ileus 07/22/2019 07/31/2019 Last Assessment & Plan: Assessment: NG tube removed 07/26, resolving ileus PLAN: -clears as tolerated -CT A/P 07/28 postoperative ileus, gas in colon -continue miralax -continue entereg Hypomagnesemia 07/21/2019 05/02/2022 documented as of this encounter (statuses as of 08/30/2022) [facility]2019 History of Past illness Narrative* Problem Noted Date Resolved Date Hyponatremia 07/31/2019 07/31/2019 Last Assessment & Plan: PLAN: Trend nA Hypophosphataemia 07/22/2019 05/21/2022 Last Assessment & Plan: PLAN: Replete phos>2.5 Hypokalemia 07/22/2019 05/21/2022 Last Assessment & Plan: PLAN: Replete k>4 Postoperative ileus 07/22/2019 07/31/2019 Last Assessment & Plan: Assessment: NG tube removed 07/26, resolving ileus PLAN: -clears as tolerated -CT A/P 07/28 postoperative ileus, gas in colon -continue miralax -continue entereg Hypomagnesemia 07/21/2019 05/02/2022 documented as of this encounter (statuses as of 09/02/2022) [facility]2019 History of Past illness Narrative* Problem Noted Date Resolved Date Hyponatremia 07/31/2019 07/31/2019 Last Assessment & Plan: PLAN: Trend nA Hypophosphataemia 07/22/2019 05/21/2022 Last Assessment & Plan: PLAN: Replete phos>2.5 Hypokalemia 07/22/2019 05/21/2022 Last Assessment & Plan: PLAN: Replete k>4 Postoperative ileus 07/22/2019 07/31/2019 Last Assessment & Plan: Assessment: NG tube removed 07/26, resolving ileus PLAN: -clears as tolerated -CT A/P 07/28 postoperative ileus, gas in colon -continue miralax -continue entereg Hypomagnesemia 07/21/2019 05/02/2022 documented as of this encounter (statuses as of 10/12/2022) [facility]2019 History of Past illness Narrative* Problem Noted Date Resolved Date Hyponatremia 07/31/2019 07/31/2019 Last Assessment & Plan: PLAN: Trend nA Hypophosphataemia 07/22/2019 05/21/2022 Last Assessment & Plan: PLAN: Replete phos>2.5 Hypokalemia 07/22/2019 05/21/2022 Last Assessment & Plan: PLAN: Replete k>4 Postoperative ileus 07/22/2019 07/31/2019 Last Assessment & Plan: Assessment: NG tube removed 07/26, resolving ileus PLAN: -clears as tolerated -CT A/P 07/28 postoperative ileus, gas in colon -continue miralax -continue entereg Hypomagnesemia 07/21/2019 05/02/2022 documented as of this encounter (statuses as of 10/12/2022) [facility]2019 History of Past illness Narrative* Problem Noted Date Resolved Date Hyponatremia 07/31/2019 07/31/2019 Last Assessment & Plan: PLAN: Trend nA Hypophosphataemia 07/22/2019 05/21/2022 Last Assessment & Plan: PLAN: Replete phos>2.5 Hypokalemia 07/22/2019 05/21/2022 Last Assessment & Plan: PLAN: Replete k>4 Postoperative ileus 07/22/2019 07/31/2019 Last Assessment & Plan: Assessment: NG tube removed 07/26, resolving ileus PLAN: -clears as tolerated -CT A/P 07/28 postoperative ileus, gas in colon -continue miralax -continue entereg Hypomagnesemia 07/21/2019 05/02/2022 documented as of this encounter (statuses as of 10/23/2022) [facility]2019 History of Past illness Narrative* Problem Noted Date Resolved Date Hyponatremia 07/31/2019 07/31/2019 Last Assessment & Plan: PLAN: Trend nA Hypophosphataemia 07/22/2019 05/21/2022 Last Assessment & Plan: PLAN: Replete phos>2.5 Hypokalemia 07/22/2019 05/21/2022 Last Assessment & Plan: PLAN: Replete k>4 Postoperative ileus 07/22/2019 07/31/2019 Last Assessment & Plan: Assessment: NG tube removed 07/26, resolving ileus PLAN: -clears as tolerated -CT A/P 07/28 postoperative ileus, gas in colon -continue miralax -continue entereg Hypomagnesemia 07/21/2019 05/02/2022 documented as of this encounter (statuses as of 10/24/2022) [facility] History of Past illness Narrative* Problem Noted Date Resolved Date Hyponatremia 07/31/2019 07/31/2019 Last Assessment & Plan: PLAN: Trend nA Hypophosphataemia 07/22/2019 05/21/2022 Last Assessment & Plan: PLAN: Replete phos>2.5 Hypokalemia 07/22/2019 05/21/2022 Last Assessment & Plan: PLAN: Replete k>4 Postoperative ileus 07/22/2019 07/31/2019 Last Assessment & Plan: Assessment: NG tube removed 07/26, resolving ileus PLAN: -clears as tolerated -CT A/P 07/28 postoperative ileus, gas in colon -continue miralax -continue entereg Hypomagnesemia 07/21/2019 05/02/2022 documented as of this encounter (statuses as of 12/05/2022) [facility] History of Past illness Narrative* Problem Noted Date Resolved Date Hyponatremia 07/31/2019 07/31/2019 Last Assessment & Plan: PLAN: Trend nA Hypophosphataemia 07/22/2019 05/21/2022 Last Assessment & Plan: PLAN: Replete phos>2.5 Hypokalemia 07/22/2019 05/21/2022 Last Assessment & Plan: PLAN: Replete k>4 Postoperative ileus 07/22/2019 07/31/2019 Last Assessment & Plan: Assessment: NG tube removed 07/26, resolving ileus PLAN: -clears as tolerated -CT A/P 07/28 postoperative ileus, gas in colon -continue miralax -continue entereg Hypomagnesemia 07/21/2019 05/02/2022 documented as of this encounter (statuses as of 01/06/2023) [facility]2019 History of Past illness Narrative* Problem Noted Date Diagnosed Date Resolved Date Hyponatremia 07/31/2019 07/31/2019 Last Assessment & Plan: PLAN: Trend nA Hypophosphataemia 07/22/2019 05/21/2022 Last Assessment & Plan: PLAN: Replete phos>2.5 Hypokalemia 07/22/2019 05/21/2022 Last Assessment & Plan: PLAN: Replete k>4 Postoperative ileus 07/22/2019 07/31/20 Last Assessment & Plan: Assessment: NG tube removed 07/26, resolving ileus PLAN: -clears as tolerated -CT A/P 07/28 postoperative ileus, gas in colon -continue miralax -continue entereg Hypomagnesemia 07/21/2019 05/02/2022 documented as of this encounter (statuses as of 08/03/2023) [facility]11-01-2019 History of Past illness Narrative* Problem Noted Date Diagnosed Date Resolved Date Hyponatremia 07/31/2019 07/31/2019 Last Assessment & Plan: PLAN: Trend nA Hypophosphataemia 07/22/2019 05/21/2022 Last Assessment & Plan: PLAN: Replete phos>2.5 Hypokalemia 07/22/2019 05/21/2022 Last Assessment & Plan: PLAN: Replete k>4 Postoperative ileus 07/22/2019 07/31/20 Last Assessment & Plan: Assessment: NG tube removed 07/26, resolving ileus PLAN: -clears as tolerated -CT A/P 07/28 postoperative ileus, gas in colon -continue miralax -continue entereg Hypomagnesemia 07/21/2019 05/02/2022 documented as of this encounter (statuses as of 08/03/2023) [facility]No [facility] Work [facility]: [facility]* Diagnosis Lower abdominal pain- Primary Abdominal pain, other specified site [facility] Diagnosis Enterocutaneous fistula- Primary Fistula of intestine, 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 History of bladder cancer Personal history of malignant neoplasm of bladder Incisional hernia, without obstruction or gangrene Incisional hernia without mention of obstruction or gangrene [facility] Diagnosis Enterocutaneous fistula- Primary Fistula of intestine, excluding rectum and anus [facility] Diagnosis Malignant neoplasm of urinary bladder, unspecified site (HCC)- Primary Enterocutaneous fistula Fistula of intestine, excluding rectum and anus Lung nodule Solitary pulmonary nodule [facility] Diagnosis Screening for genitourinary condition Screening for other and unspecified genitourinary condition [facility] Diagnosis Enterocutaneous fistula- Primary Fistula of intestine, 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, excluding rectum and anus [facility] Pre-op evaluation- Primary Preoperative examination, unspecified Enterocutaneous fistula Fistula of intestine, excluding rectum and anus History of CVA (cerebrovascular accident) Transient ischemic attack (TIA), and cerebral infarction without residual deficits Lung nodule Solitary pulmonary nodule Former smoker Personal history of tobacco use, presenting hazards to health Essential hypertension Unspecified essential hypertension Hyperlipidemia, unspecified hyperlipidemia type Atrial fibrillation, unspecified type (HCC) History of bladder cancer Personal history of malignant neoplasm of bladder Chronic anticoagulation Long-term (current) use of anticoagulants Enterocutaneous fistula Fistula of intestine, excluding rectum and anus [facility] Diagnosis Onset Date Resolution Status Abdominopelvic abscess acute Hypokalemia acute Wound infection after surgery acute [facility] Work Phone: Evaluation note* Diagnosis Onset Date Resolution Status Hypokalemia resolved [facility] Work Phone: Evaluation note* Diagnosis Encounter for attention to ileostomy (HCC)- Primary Attention to ileostomy [facility] Diagnosis Postoperative state- Primary Other postprocedural status [facility] Diagnosis Pre-op chest exam- Primary Pre-operative respiratory examination [facility] Diagnosis Bronchiolar disease Other diseases of trachea and bronchus Adenopathy Enlargement of lymph nodes Lung nodule Solitary pulmonary nodule [facility] Diagnosis Lung nodule- Primary Solitary pulmonary nodule [facility] Diagnosis Lung nodule- Primary Solitary pulmonary nodule [facility] Lung nodule- Primary Solitary pulmonary nodule [facility] Diagnosis Lung nodule- Primary Solitary pulmonary nodule [facility] Lung nodule Solitary pulmonary nodule Pre-op testing Preoperative examination, unspecified Encounter for other preprocedural examination SOB (shortness of breath) Shortness of breath Lung nodule Solitary pulmonary nodule Pre-op testing Preoperative examination, unspecified SOB (shortness of breath) Shortness of breath [facility] Lung nodule Solitary pulmonary nodule Pre-op testing Preoperative examination, unspecified SOB (shortness of breath) Shortness of breath Lung nodule Solitary pulmonary nodule Pre-op testing Preoperative examination, unspecified SOB (shortness of breath) Shortness of breath [facility] Diagnosis Malignant neoplasm of lower lobe of left lung (HCC)- Primary [facility]* Diagnosis Follow-up examination following surgery Follow-up examination, following unspecified surgery [facility]* Diagnosis Malignant neoplasm of unspecified part of unspecified bronchus or lung (HCC)- Primary [facility]* Diagnosis Malignant neoplasm of lower lobe of left lung (HCC) [facility] Diagnosis Malignant neoplasm of unspecified part of unspecified bronchus or lung (HCC) [facility]* Diagnosis Malignant neoplasm of unspecified part of unspecified bronchus or lung (HCC) [facility]* Diagnosis Malignant neoplasm of unspecified part of unspecified bronchus or lung (HCC)- Primary [facility]* Diagnosis Post-op pain Other acute postoperative pain Nicotine use disorder, F17.2 Tobacco use disorder Postoperative ileus (HCC) Other digestive system complications Hypoalbuminemia Other disorders of plasma protein metabolism Hyponatremia Hyposmolality and/or hyponatremia Pre-op evaluation- Primary Preoperative examination, unspecified Enterocutaneous fistula Fistula of intestine, excluding rectum and anus History of CVA (cerebrovascular accident) Transient ischemic attack (TIA), and cerebral infarction without residual deficits Lung nodule Solitary pulmonary nodule Former smoker Personal history of tobacco use, presenting hazards to health Essential hypertension Unspecified essential hypertension Hyperlipidemia, unspecified hyperlipidemia type Atrial fibrillation, unspecified type (HCC) History of bladder cancer Personal history of malignant neoplasm of bladder Chronic anticoagulation Long-term (current) use of anticoagulants Malignant neoplasm of unspecified part of unspecified bronchus or lung (HCC) [facility]* Diagnosis Post-op pain Other acute postoperative pain Nicotine use disorder, F17.2 Tobacco use disorder Postoperative ileus (HCC) Other digestive system complications Hypoalbuminemia Other disorders of plasma protein metabolism Hyponatremia Hyposmolality and/or hyponatremia Pre-op evaluation- Primary Preoperative examination, unspecified Enterocutaneous fistula Fistula of intestine, excluding rectum and anus History of CVA (cerebrovascular accident) Transient ischemic attack (TIA), and cerebral infarction without residual deficits Lung nodule Solitary pulmonary nodule Former smoker Personal history of tobacco use, presenting hazards to health Essential hypertension Unspecified essential hypertension Hyperlipidemia, unspecified hyperlipidemia type Atrial fibrillation, unspecified type (HCC) History of bladder cancer Personal history of malignant neoplasm of bladder Chronic anticoagulation Long-term (current) use of anticoagulants Malignant neoplasm of unspecified part of unspecified bronchus or lung (HCC)- Primary documented in this encounter [facility] Plan of care note* Visit Details Visit Type -SN SOC Discipline -Detention Problems Problem Description Start Date Status Goals Interve ntions Medication Education Disciplines: Skilled Services 05/23/2022 Active 1 goal linked to scheduled/documen andrez intervention 1 goal intervention scheduled/document ed in this visit Sepsis Disciplines: Skilled Services 05/23/2022 Active 1 goal linked to scheduled/documen andrez intervention 1 goal intervention scheduled/document ed in this visit Physician Specific Parameters Disciplines: Skilled Services 05/23/2022 Active 1 goal linked to scheduled/documen andrez intervention 1 goal intervention scheduled/document ed in this visit Risk for Falls Disciplines: Skilled Services 05/23/2022 Active 1 goal linked to scheduled/documen andrez intervention 1 goal intervention scheduled/document ed in this visit Pain Disciplines: Skilled Services 05/23/2022 Active 1 goal linked to scheduled/documen andrez intervention 1 goal intervention scheduled/document ed in this visit Nutrition/Hydration Disciplines: Skilled Services 05/23/2022 Active 1 goal linked to scheduled/documen andrez intervention 1 goal intervention scheduled/document ed in this visit High Risk Medications Disciplines: Skilled Services 05/23/2022 Active 1 goal linked to scheduled/documen andrez intervention 1 goal intervention scheduled/document ed in this visit Advance Directives Disciplines: Skilled Services 05/23/2022 Active 1 goal linked to scheduled/documen andrez intervention 1 goal intervention scheduled/document ed in this visit SN Integumentary/Wound s Disciplines: SN 05/23/2022 Active 1 goal linked to scheduled/documen andrez intervention 3 goal interventions scheduled/document ed in this visit SN Genitourinary disease process Disciplines: SN 05/23/2022 Active 1 goal linked to scheduled/documen andrez intervention 1 goal intervention scheduled/document ed in this visit SN Gastrointestinal Disciplines: SN 05/23/2022 Active 1 goal linked to scheduled/documen andrez intervention 1 goal intervention scheduled/document ed in this visit Goals Goal Associated Problem Outcome Goal Met? Visit Notes Patient/caregiver will demonstrate ability to obtain, store, identify and administer ordered medications, keep accurate medication list in home, and adhere to medication schedule Description: Patient/caregiver will demonstrate ability to obtain, store, identify and administer ordered medications, keep accurate medication list in home, and adhere to medication schedule by 06-16-22. Medication Education No Patient/caregiver will be able to identify and report symptoms of sepsis Description: Patient/caregiver will be able to identify signs/symptoms of sepsis infection and will verbalize actions to take if suspected by 06-16-22. Sepsis No Patient to maintain parameters within physician-specified ranges throughout certification period Physician Specific Parameters No Manage Risk for falls Description: Patient/caregiver will verbalize knowledge of individualized fall prevention strategies by 06-16-22. . Risk for Falls No Manage Pain Description: Patient/caregiver will verbalize knowledge and understanding of appropriate techniques to control pain, including pain medication and non-pharmacological techniques. Patient will verbalize or demonstrate an acceptable level of pain as evidenced by a pain score of 5/10 and improvement in ability to perform activities of daily living to be achieved by 06-16-22. . Pain No Manage Nutrition/Hydration Description: Patient/caregiver will verbalize/demonstrate knowledge of prescribed diet and/or healthy nutrition to be achieved by 06-16-22. . Nutrition/Hydration No Patient/caregiver will teach back high risk medication side effect and precaution education High Risk Medications No Patient/caregiver will make healthcare providers aware of and any changes to Advance Directives throughout certification period Advance Directives No Patient/Caregiver will have improved healing and be free of signs and symptoms of complications Description: Patient/caregiver will verbalize management strategies to promote wound healing & prevent complications as evidenced by improved healing & no complications by 06-16-22. SN Integumentary/Wounds No Patient/Caregiver will verbalize understanding and demonstrate improved management of genitourinary disease/condition. Description: Patient/Caregiver will state understanding of genitourinary disease/condition and be able to teach back management strategies by 06-16-22. SN Genitourinary disease process No Improved management of GI disease/condition Description: Patient/Caregiver will demonstrate understanding of GI education as evidenced by improved management of gastrointestinal disease/condition by 06-16-22. . SN Gastrointestinal No Interventions Intervention Associated Problem/Goal Status Variance Visit Notes Medication Education Description: Evaluate/instruct patient/caregiver on obtaining, storing, identifying and administering ordered medications as well as keeping accurate medication list in the home and adhereing to medication schedule Problem:Medication Education Goal:Patient/caregiver will demonstrate ability to obtain, store, identify and administer ordered medications, keep accurate medication list in home, and adhere to medication schedule Completed Patient and Caregiver instructed on importance of keeping accurate medication list in home, adhering to medication schedule and proper storage of medications. Risk of Sepsis Description: Patient is at risk for sepsis. Monitor closely for s/s of sepsis. Problem:Sepsis Goal:Patient/caregiver will be able to identify and report symptoms of sepsis Completed SPO2 Description: Notify Dr. Mullins if pulse ox is <92% at rest. Problem:Physician Specific Parameters Goal:Patient to maintain parameters within physician-specified ranges throughout certification period Completed Instruct on individual fall risk factors and strategies to prevent falls and injuries caused by falls. Problem:Risk for Falls Goal:Manage Risk for falls Completed SN: Patient and Caregiver instructed on Eliminating Environmental Hazards: Keep pathways clear, Keep rooms and walkways well lit, Wear supportive shoes or non-skid socks and Keep frequently used items within reach Instruct on pain and instruct on strategies to control pain Problem:Pain Goal:Manage Pain Completed patient instructed on techniques to control pain including Pharmacological measures and Non-Pharmacological measures; rest, positioning/elevation and mobility/therapeutic exercise. Define patient s appetite/hydration status and implement strategies to improve compliance with prescribed diet and/or healthy nutrition. Problem:Nutrition/Hydra tion Goal:Manage Nutrition/Hydration Completed Instructed patient and caregiver on implementing strategies to comply with healthy nutrition and adequate hydration Coumadin/Warfarin-In struct on high risk medication Problem:High Risk Medications Goal:Patient/caregiver will teach back high risk medication side effect and precaution education Completed patient and caregiver instructed on Warfarin Take your warfarin as instructed and at the same time each day. Have your blood tested as instructed to check how quickly your blood is clotting. Discuss all medications you are taking -- even [id number] medicines -- with your doctor and pharmacist since many drugs can interact with warfarin. Tell anyone providing medical or dental care that you are taking warfarin. Eat about the same amount of foods with vitamin K each week, for example leafy greens, as these foods can affect the way warfarin works. If you forget to take a pill, DO NOT take a double dose. Take the missed dose as soon as possible on the same day. DO NOT take a double dose of warfarin the next day to make up for the missed dose. Watch for signs of abnormal or excessive bleeding and bruising. Call your health care provider right away if you suspect something is wrong. DO NOT STOP your warfarin even for a minor procedure like dental work without first checking with the doctor who monitors your therapy. It is best to avoid alcohol while taking warfarin. Determine patient's Advance Directive Status Description: Patient does have advance directives. Patient's Advance Directives determined to be available in Home DNR-CC. Problem:Advance Directives Goal:Patient/caregiver will make healthcare providers aware of and any changes to Advance Directives throughout certification period Completed Discussed Advance Directives with Patient and/or Caregiver. Referred patient to Home Care handbook for further information on Healthcare DPOA & Living Will. Wound Care: Perform wound care (1) Description: Incision location: mid abdominal incision Order: Pack base of incision with nugauze dressing and change twice daily to keep site dry and clean. Remove packing when showering and allow soapy water to run over wound. Pat to dry. Continue to pack wound until [facility] f/u appt. If drainage decreases before then, you may decrease packin g to once daily. Notify Dr. Mullins's office if drainage becomes green/brown. Frequency: twice daily and has needed for drainage Measure wound/incision weekly and as needed. Problem:SN Integumentary/Wounds Goal:Patient/Caregiver will have improved healing and be free of signs and symptoms of complications Completed Completed by SN. Patient did tolerate well. Instruct patient/caregiver healing process and management measures to promote healing and avoid complications Problem:SN Integumentary/Wounds Goal:Patient/Caregiver will have improved healing and be free of signs and symptoms of complications Completed patient instructed on the following: healing process, signs and symptoms of infection, importance of good nutrition and when to report symptoms. Instruct Patient/Caregiver on wound/incision care procedure as ordered by physician Problem:SN Integumentary/Wounds Goal:Patient/Caregiver will have improved healing and be free of signs and symptoms of complications Completed patient and caregiver instructed on and return demonstrated wound care as ordered by Physician. Urostomy- Instruct Patient/Caregiver on urostomy management Problem:SN Genitourinary disease process Goal:Patient/Caregiver will verbalize understanding and demonstrate improved management of genitourinary disease/condition. Completed patient and caregiver instructed on the following: how to connect/disconnect from urinary bag, how to clean urinary bag, pouch removal, disposal of used pouch and appliance and urostomy precautions. Ostomy: Instruct Patient/Caregiver on Ostomy management Problem:SN Gastrointestinal Goal:Improved management of GI disease/condition Completed patient and caregiver instructed on the following: emptying and rinsing pouch, pouch removal, pouch change, disposal of used pouch and appliance, peristomal skin care and ostomy precautions. documented in this encounter [facility] Plan of care note* Visit Details Visit Type -SN ROUTINE Discipline -Detention Problems Problem Description Start Date Status Goals Interve ntions Medication Education Disciplines: Skilled Services 05/23/2022 Active 1 goal linked to scheduled/documen andrez intervention 1 goal intervention scheduled/documen andrez in this visit Sepsis Disciplines: Skilled Services 05/23/2022 Active 1 goal linked to scheduled/documen andrez intervention 1 goal intervention scheduled/documen andrez in this visit Physician Specific Parameters Disciplines: Skilled Services 05/23/2022 Active 1 goal linked to scheduled/documen andrez intervention 1 goal intervention scheduled/documen andrez in this visit Risk for Falls Disciplines: Skilled Services 05/23/2022 Active 1 goal linked to scheduled/documen andrez intervention 1 goal intervention scheduled/documen andrez in this visit Pain Disciplines: Skilled Services 05/23/2022 Resolved on 05/30/2022 1 goal linked to scheduled/documen andrez intervention Nutrition/Hydratio n Disciplines: Skilled Services 05/23/2022 Active 1 goal linked to scheduled/documen andrez intervention 1 goal intervention scheduled/documen andrez in this visit SN Integumentary/Woun ds Disciplines: SN 05/23/2022 Active 1 goal linked to scheduled/documen andrez intervention 3 goal interventions scheduled/documen andrez in this visit SN Genitourinary disease process Disciplines: SN 05/23/2022 Active 1 goal linked to scheduled/documen andrez intervention 2 goal interventions scheduled/documen anderz in this visit SN Gastrointestinal Disciplines: SN 05/23/2022 Active 1 goal linked to scheduled/documen andrez intervention 2 goal interventions scheduled/documen andrez in this visit Goals Goal Associated Problem Outcome Goal Met? Visit Notes Patient/caregiver will demonstrate ability to obtain, store, identify and administer ordered medications, keep accurate medication list in home, and adhere to medication schedule Description: Patient/caregiver will demonstrate ability to obtain, store, identify and administer ordered medications, keep accurate medication list in home, and adhere to medication schedule by 06-16-22. Medication Education In Progress No Patient/caregiver will be able to identify and report symptoms of sepsis Description: Patient/caregiver will be able to identify signs/symptoms of sepsis infection and will verbalize actions to take if suspected by 06-16-22. Sepsis In Progress No Patient to maintain parameters within physician-specified ranges throughout certification period Physician Specific Parameters In Progress No Manage Risk for falls Description: Patient/caregiver will verbalize knowledge of individualized fall prevention strategies by 06-16-22. . Risk for Falls In Progress No Manage Pain Description: Patient/caregiver will verbalize knowledge and understanding of appropriate techniques to control pain, including pain medication and non-pharmacological techniques. Patient will verbalize or demonstrate an acceptable level of pain as evidenced by a pain score of 5/10 and improvement in ability to perform activities of daily living to be achieved by 06-16-22. . Pain Completed Yes Manage Nutrition/Hydration Description: Patient/caregiver will verbalize/demonstrate knowledge of prescribed diet and/or healthy nutrition to be achieved by 06-16-22. . Nutrition/Hydration In Progress No Patient/Caregiver will have improved healing and be free of signs and symptoms of complications Description: Patient/caregiver will verbalize management strategies to promote wound healing & prevent complications as evidenced by improved healing & no complications by 06-16-22. SN Integumentary/Wounds In Progress No Patient/Caregiver will verbalize understanding and demonstrate improved management of genitourinary disease/condition. Description: Patient/Caregiver will state understanding of genitourinary disease/condition and be able to teach back management strategies by 06-16-22. SN Genitourinary disease process In Progress No Improved management of GI disease/condition Description: Patient/Caregiver will demonstrate understanding of GI education as evidenced by improved management of gastrointestinal disease/condition by 06-16-22. . SN Gastrointestinal In Progress No Interventions Intervention Associated Problem/Goal Status Variance Visit Notes Medication Education Description: Evaluate/instruct patient/caregiver on obtaining, storing, identifying and administering ordered medications as well as keeping accurate medication list in the home and adhereing to medication schedule Problem:Medication Education Goal:Patient/caregive r will demonstrate ability to obtain, store, identify and administer ordered medications, keep accurate medication list in home, and adhere to medication schedule Completed Patient instructed on adhering to medication schedule. Risk of Sepsis Description: Patient is at risk for sepsis. Monitor closely for s/s of sepsis. Problem:Sepsis Goal:Patient/caregive r will be able to identify and report symptoms of sepsis Completed SPO2 Description: Notify Dr. Mullins if pulse ox is <92% at rest. Problem:Physician Specific Parameters Goal:Patient to maintain parameters within physician-specified ranges throughout certification period Completed Instruct on individual fall risk factors and strategies to prevent falls and injuries caused by falls. Problem:Risk for Falls Goal:Manage Risk for falls Completed SN: Patient and Caregiver instructed on Eliminating Environmental Hazards: Keep pathways clear and Keep rooms and walkways well lit Managing Impaired Functional Mobility: Use assistive device(s): single point cane Define patient s appetite/hydration status and implement strategies to improve compliance with prescribed diet and/or healthy nutrition. Problem:Nutrition/Hyd ration Goal:Manage Nutrition/Hydration Completed instructed patient and caregiver on implementing strategies to comply with prescribed diet, healthy nutrition and adequate hydration Wound Care: Perform wound care (1) Description: Incision location: mid abdominal incision Order: Pack base of incision with nugauze dressing and change twice daily to keep site dry and clean. Remove packing when showering and allow soapy water to run over wound. Pat to dry. Continue to pack wound until [facility] f/u appt. If drainage decreases before then, you may decrease packin g to once daily. Notify Dr. Mullins's office if drainage becomes green/brown. Frequency: twice daily and has needed for drainage Measure wound/incision weekly and as needed. Problem:SN Integumentary/Wounds Goal:Patient/Caregive r will have improved healing and be free of signs and symptoms of complications Completed Completed by SN. Patient did tolerate well. Instruct patient/caregiver healing process and management measures to promote healing and avoid complications Problem:SN Integumentary/Wounds Goal:Patient/Caregive r will have improved healing and be free of signs and symptoms of complications Completed patient and caregiver instructed on the following: healing process, importance of good nutrition and when to report symptoms. Instruct Patient/Caregiver on wound/incision care procedure as ordered by physician Problem:SN Integumentary/Wounds Goal:Patient/Caregive r will have improved healing and be free of signs and symptoms of complications Completed patient instructed on wound care as ordered by Physician. Urostomy- Complete pouch change Description: Pouch to be changed: 2x a week and PRN. Pouch procedure: Remove old pouch, complete peristomal care, use skin prep, power, barrier ring, two piece and convex. Adjust ostomy procedure as needed for leaking/fit complications Problem:SN Genitourinary disease process Goal:Patient/Caregive r will verbalize understanding and demonstrate improved management of genitourinary disease/condition. Patient independent Urostomy- Instruct Patient/Caregiver on urostomy management Problem:SN Genitourinary disease process Goal:Patient/Caregive r will verbalize understanding and demonstrate improved management of genitourinary disease/condition. Patient independent Ostomy: Complete Pouch Change Description: Pouch to be changed: 2x a week and PRN. Pouch procedure: Remove old pouch, complete peristomal care, use skin prep, powder, barrier ring and two piece, adjust ostomy procedure as needed for leaking/fit complications. Problem:SN Gastrointestinal Goal:Improved management of GI disease/condition Patient independent Ostomy: Instruct Patient/Caregiver on Ostomy management Problem:SN Gastrointestinal Goal:Improved management of GI disease/condition Patient independent documented in this encounter [facility] home Plan of care note* Visit Details Visit Type -SN ROUTINE Discipline -Detention Problems Problem Description Start Date Status Goals Interve ntions Medication Education Disciplines: Skilled Services 05/23/2022 Active 1 goal linked to scheduled/documen andrez intervention 1 goal intervention scheduled/documen andrez in this visit Sepsis Disciplines: Skilled Services 05/23/2022 Active 1 goal linked to scheduled/documen andrez intervention 1 goal intervention scheduled/documen andrez in this visit Physician Specific Parameters Disciplines: Skilled Services 05/23/2022 Active 1 goal linked to scheduled/documen andrez intervention 1 goal intervention scheduled/documen andrez in this visit Risk for Falls Disciplines: Skilled Services 05/23/2022 Active 1 goal linked to scheduled/documen andrez intervention 1 goal intervention scheduled/documen andrez in this visit Nutrition/Hydratio n Disciplines: Skilled Services 05/23/2022 Active 1 goal linked to scheduled/documen andrez intervention 1 goal intervention scheduled/documen andrez in this visit High Risk Medications Disciplines: Skilled Services 05/23/2022 Resolved on 06/14/2022 1 goal linked to scheduled/documen andrez intervention 1 goal intervention scheduled/documen andrez in this visit Discharge Disciplines: Skilled Services 05/23/2022 Active 1 goal linked to scheduled/documen andrez intervention SN Integumentary/Woun ds Disciplines: 05/23/2022 Active 1 goal linked to scheduled/documen andrez intervention 3 goal interventions scheduled/documen andrez in this visit SN Genitourinary disease process Disciplines: 05/23/2022 Active 1 goal linked to scheduled/documen andrez intervention 2 goal interventions scheduled/documen andrez in this visit SN Gastrointestinal Disciplines: 05/23/2022 Active 1 goal linked to scheduled/documen andrez intervention 2 goal interventions scheduled/documen andrez in this visit Goals Goal Associated Problem Outcome Goal Met? Visit Notes Patient/caregiver will demonstrate ability to obtain, store, identify and administer ordered medications, keep accurate medication list in home, and adhere to medication schedule Description: Patient/caregiver will demonstrate ability to obtain, store, identify and administer ordered medications, keep accurate medication list in home, and adhere to medication schedule by 06-16-22. Medication Education In Progress No Patient/caregiver will be able to identify and report symptoms of sepsis Description: Patient/caregiver will be able to identify signs/symptoms of sepsis infection and will verbalize actions to take if suspected by 06-16-22. Sepsis In Progress No Patient to maintain parameters within physician-specified ranges throughout certification period Physician Specific Parameters In Progress No Manage Risk for falls Description: Patient/caregiver will verbalize knowledge of individualized fall prevention strategies by 06-16-22. . Risk for Falls In Progress No Manage Nutrition/Hydration Description: Patient/caregiver will verbalize/demonstrate knowledge of prescribed diet and/or healthy nutrition to be achieved by 06-16-22. . Nutrition/Hydration In Progress No Patient/caregiver will teach back high risk medication side effect and precaution education High Risk Medications Completed Yes Manage discharge planning Description: Patient/caregiver will verbalize understanding of ongoing discharge plan provided related to disease management, arrangements for outpatient and/or community services, obtaining medications, supplies, and DME, as needed throughout certification period. Discharge In Progress No Patient/Caregiver will have improved healing and be free of signs and symptoms of complications Description: Patient/caregiver will verbalize management strategies to promote wound healing & prevent complications as evidenced by improved healing & no complications by 06-16-22. SN Integumentary/Wounds In Progress No Patient/Caregiver will verbalize understanding and demonstrate improved management of genitourinary disease/condition. Description: Patient/Caregiver will state understanding of genitourinary disease/condition and be able to teach back management strategies by 06-16-22. SN Genitourinary disease process In Progress No Improved management of GI disease/condition Description: Patient/Caregiver will demonstrate understanding of GI education as evidenced by improved management of gastrointestinal disease/condition by 06-16-22. . SN Gastrointestinal In Progress No Interventions Intervention Associated Problem/Goal Status Variance Visit Notes Medication Education Description: Evaluate/instruct patient/caregiver on obtaining, storing, identifying and administering ordered medications as well as keeping accurate medication list in the home and adhereing to medication schedule Problem:Medication Education Goal:Patient/caregive r will demonstrate ability to obtain, store, identify and administer ordered medications, keep accurate medication list in home, and adhere to medication schedule Completed Patient and Caregiver instructed on adhering to medication schedule. Risk of Sepsis Description: Patient is at risk for sepsis. Monitor closely for s/s of sepsis. Problem:Sepsis Goal:Patient/caregive r will be able to identify and report symptoms of sepsis Completed SPO2 Description: Notify Dr. Mullins if pulse ox is <92% at rest. Problem:Physician Specific Parameters Goal:Patient to maintain parameters within physician-specified ranges throughout certification period Completed Instruct on individual fall risk factors and strategies to prevent falls and injuries caused by falls. Problem:Risk for Falls Goal:Manage Risk for falls Completed SN: Patient instructed on Eliminating Environmental Hazards: Keep pathways clear and Keep rooms and walkways well lit Managing Impaired Functional Mobility: Caregiver to provide assist with: Steps Define patient s appetite/hydration status and implement strategies to improve compliance with prescribed diet and/or healthy nutrition. Problem:Nutrition/Hyd ration Goal:Manage Nutrition/Hydration Completed reinforced patient and caregiver on implementing strategies to comply with healthy nutrition and adequate hydration Coumadin/Warfarin-I nstruct on high risk medication Problem:High Risk Medications Goal:Patient/caregive r will teach back high risk medication side effect and precaution education Completed patient instructed on Warfarin Take your warfarin as instructed and at the same time each day. Have your blood tested as instructed to check how quickly your blood is clotting. Discuss all medications you are taking -- even [id number] medicines -- with your doctor and pharmacist since many drugs can interact with warfarin. Tell anyone providing medical or dental care that you are taking warfarin. Eat about the same amount of foods with vitamin K each week, for example leafy greens, as these foods can affect the way warfarin works. If you forget to take a pill, DO NOT take a double dose. Take the missed dose as soon as possible on the same day. DO NOT take a double dose of warfarin the next day to make up for the missed dose. Watch for signs of abnormal or excessive bleeding and bruising. Call your health care provider right away if you suspect something is wrong. DO NOT STOP your warfarin even for a minor procedure like dental work without first checking with the doctor who monitors your therapy. It is best to avoid alcohol while taking warfarin. Wound Care: Perform wound care (1) Description: Incision location: mid abdominal incision Order: Pack base of incision with nugauze dressing and change twice daily to keep site dry and clean. Remove packing when showering and allow soapy water to run over wound. Pat to dry. Continue to pack wound until [facility] f/u appt. If drainage decreases before then, you may decrease packin g to once daily. Notify Dr. Mullins's office if drainage becomes green/brown. Frequency: twice daily and has needed for drainage Measure wound/incision weekly and as needed. Problem:SN Integumentary/Wounds Goal:Patient/Caregive r will have improved healing and be free of signs and symptoms of complications Completed Completed by SN. Patient did tolerate well. Instruct patient/caregiver healing process and management measures to promote healing and avoid complications Problem:SN Integumentary/Wounds Goal:Patient/Caregive r will have improved healing and be free of signs and symptoms of complications Completed patient and caregiver instructed on the following: healing process, signs and symptoms of infection and when to report symptoms. Instruct Patient/Caregiver on wound/incision care procedure as ordered by physician Problem:SN Integumentary/Wounds Goal:Patient/Caregive r will have improved healing and be free of signs and symptoms of complications Completed patient and caregiver instructed on wound care as ordered by Physician. Urostomy- Instruct Patient/Caregiver on urostomy management Problem:SN Genitourinary disease process Goal:Patient/Caregive r will verbalize understanding and demonstrate improved management of genitourinary disease/condition. Completed patient instructed on the following: urostomy precautions. Urostomy- Complete pouch change Description: Pouch to be changed: 2x a week and PRN. Pouch procedure: Remove old pouch, complete peristomal care, use skin prep, power, barrier ring, two piece and convex. Adjust ostomy procedure as needed for leaking/fit complications Problem:SN Genitourinary disease process Goal:Patient/Caregive r will verbalize understanding and demonstrate improved management of genitourinary disease/condition. Patient independent Ostomy: Instruct Patient/Caregiver on Ostomy management Problem:SN Gastrointestinal Goal:Improved management of GI disease/condition Completed patient instructed on the following: ostomy precautions. Ostomy: Complete Pouch Change Description: Pouch to be changed: 2x a week and PRN. Pouch procedure: Remove old pouch, complete peristomal care, use skin prep, powder, barrier ring and two piece, adjust ostomy procedure as needed for leaking/fit complications. Problem:SN Gastrointestinal Goal:Improved management of GI disease/condition Patient independent documented in this encounter [facility] home Plan of care note* Visit Details Visit Type -SN ROUTINE Discipline -Detention Problems Problem Description Start Date Status Goals Interve ntions Medication Education Disciplines: Skilled Services 05/23/2022 Active 1 goal linked to scheduled/documen andrez intervention 1 goal intervention scheduled/document ed in this visit Sepsis Disciplines: Skilled Services 05/23/2022 Active 1 goal linked to scheduled/documen andrez intervention 1 goal intervention scheduled/document ed in this visit Physician Specific Parameters Disciplines: Skilled Services 05/23/2022 Active 1 goal linked to scheduled/documen andrez intervention 1 goal intervention scheduled/document ed in this visit Risk for Falls Disciplines: Skilled Services 05/23/2022 Active 1 goal linked to scheduled/documen andrez intervention 1 goal intervention scheduled/document ed in this visit Nutrition/Hydration Disciplines: Skilled Services 05/23/2022 Active 1 goal linked to scheduled/documen andrez intervention 1 goal intervention scheduled/document ed in this visit SN Integumentary/Wound s Disciplines: SN 05/23/2022 Active 1 goal linked to scheduled/documen andrez intervention 3 goal interventions scheduled/document ed in this visit SN Genitourinary disease process Disciplines: SN 05/23/2022 Active 1 goal linked to scheduled/documen andrez intervention SN Gastrointestinal Disciplines: SN 05/23/2022 Active 1 goal linked to scheduled/documen andrez intervention Goals Goal Associated Problem Outcome Goal Met? Visit Notes Patient/caregiver will demonstrate ability to obtain, store, identify and administer ordered medications, keep accurate medication list in home, and adhere to medication schedule Description: Patient/caregiver will demonstrate ability to obtain, store, identify and administer ordered medications, keep accurate medication list in home, and adhere to medication schedule by 06-16-22. Medication Education In Progress No Patient/caregiver will be able to identify and report symptoms of sepsis Description: Patient/caregiver will be able to identify signs/symptoms of sepsis infection and will verbalize actions to take if suspected by 06-16-22. Sepsis In Progress No Patient to maintain parameters within physician-specified ranges throughout certification period Physician Specific Parameters In Progress No Manage Risk for falls Description: Patient/caregiver will verbalize knowledge of individualized fall prevention strategies by 06-16-22. . Risk for Falls In Progress No Manage Nutrition/Hydration Description: Patient/caregiver will verbalize/demonstrate knowledge of prescribed diet and/or healthy nutrition to be achieved by 06-16-22. . Nutrition/Hydration In Progress No Patient/Caregiver will have improved healing and be free of signs and symptoms of complications Description: Patient/caregiver will verbalize management strategies to promote wound healing & prevent complications as evidenced by improved healing & no complications by 06-16-22. SN Integumentary/Wounds In Progress No Patient/Caregiver will verbalize understanding and demonstrate improved management of genitourinary disease/condition. Description: Patient/Caregiver will state understanding of genitourinary disease/condition and be able to teach back management strategies by 06-16-22. SN Genitourinary disease process In Progress No Improved management of GI disease/condition Description: Patient/Caregiver will demonstrate understanding of GI education as evidenced by improved management of gastrointestinal disease/condition by 06-16-22. . SN Gastrointestinal In Progress No Interventions Intervention Associated Problem/Goal Status Variance Visit Notes Medication Education Description: Evaluate/instruct patient/caregiver on obtaining, storing, identifying and administering ordered medications as well as keeping accurate medication list in the home and adhereing to medication schedule Problem:Medication Education Goal:Patient/caregive r will demonstrate ability to obtain, store, identify and administer ordered medications, keep accurate medication list in home, and adhere to medication schedule Completed Patient instructed on adhering to medication schedule. Risk of Sepsis Description: Patient is at risk for sepsis. Monitor closely for s/s of sepsis. Problem:Sepsis Goal:Patient/caregive r will be able to identify and report symptoms of sepsis Completed SPO2 Description: Notify Dr. Mullins if pulse ox is <92% at rest. Problem:Physician Specific Parameters Goal:Patient to maintain parameters within physician-specified ranges throughout certification period Completed Instruct on individual fall risk factors and strategies to prevent falls and injuries caused by falls. Problem:Risk for Falls Goal:Manage Risk for falls Completed SN: Patient instructed on Eliminating Environmental Hazards: Keep pathways clear Define patient s appetite/hydration status and implement strategies to improve compliance with prescribed diet and/or healthy nutrition. Problem:Nutrition/Hyd ration Goal:Manage Nutrition/Hydration Completed reinforced patient on implementing strategies to comply with healthy nutrition and adequate hydration Wound Care: Perform wound care (1) Description: Incision location: mid abdominal incision Order: Pack base of incision with nugauze dressing and change twice daily to keep site dry and clean. Remove packing when showering and allow soapy water to run over wound. Pat to dry. Continue to pack wound until [facility] f/u appt. If drainage decreases before then, you may decrease packin g to once daily. Notify Dr. Mullins's office if drainage becomes green/brown. Frequency: twice daily and has needed for drainage Measure wound/incision weekly and as needed. Problem:SN Integumentary/Wounds Goal:Patient/Caregive r will have improved healing and be free of signs and symptoms of complications Completed Completed by SN. Patient did tolerate well. Instruct patient/caregiver healing process and management measures to promote healing and avoid complications Problem:SN Integumentary/Wounds Goal:Patient/Caregive r will have improved healing and be free of signs and symptoms of complications Completed patient instructed on the following: healing process, signs and symptoms of infection and importance of good nutrition. Instruct Patient/Caregiver on wound/incision care procedure as ordered by physician Problem:SN Integumentary/Wounds Goal:Patient/Caregive r will have improved healing and be free of signs and symptoms of complications Completed patient instructed on wound care as ordered by Physician. [facility] Visit Details Visit Type -SN AGENCY DC W V ISIT Discipline -Detention Problems Problem Description Start Date Status Goals Interve ntions Medication Education Disciplines: Skilled Services 05/23/2022 Resolved on 07/06/2022 1 goal linked to scheduled/documen andrez intervention 1 goal intervention scheduled/documen andrez in this visit Sepsis Disciplines: Skilled Services 05/23/2022 Resolved on 07/06/2022 1 goal linked to scheduled/documen andrez intervention 1 goal intervention scheduled/documen andrez in this visit Physician Specific Parameters Disciplines: Skilled Services 05/23/2022 Resolved on 07/06/2022 1 goal linked to scheduled/documen andrez intervention 1 goal intervention scheduled/documen andrez in this visit Risk for Falls Disciplines: Skilled Services 05/23/2022 Resolved on 07/06/2022 1 goal linked to scheduled/documen andrez intervention 1 goal intervention scheduled/documen andrez in this visit Nutrition/Hydratio n Disciplines: Skilled Services 05/23/2022 Resolved on 07/06/2022 1 goal linked to scheduled/documen andrez intervention 1 goal intervention scheduled/documen andrez in this visit Discharge Disciplines: Skilled Services 05/23/2022 Resolved on 07/06/2022 1 goal linked to scheduled/documen andrez intervention 2 goal interventions scheduled/documen andrez in this visit Advance Directives Disciplines: Skilled Services 05/23/2022 Resolved on 07/06/2022 1 goal linked to scheduled/documen andrez intervention SN Integumentary/Woun ds Disciplines: SN 05/23/2022 Resolved on 07/06/2022 1 goal linked to scheduled/documen andrez intervention 3 goal interventions scheduled/documen andrez in this visit SN Genitourinary disease process Disciplines: SN 05/23/2022 Resolved on 07/06/2022 1 goal linked to scheduled/documen andrez intervention 2 goal interventions scheduled/documen andrez in this visit SN Gastrointestinal Disciplines: SN 05/23/2022 Resolved on 07/06/2022 1 goal linked to scheduled/documen andrez intervention 2 goal interventions scheduled/documen andrez in this visit Goals Goal Associated Problem Outcome Goal Met? Visit Notes Patient/caregiver will demonstrate ability to obtain, store, identify and administer ordered medications, keep accurate medication list in home, and adhere to medication schedule Description: Patient/caregiver will demonstrate ability to obtain, store, identify and administer ordered medications, keep accurate medication list in home, and adhere to medication schedule by 06-16-22. Medication Education Completed Yes Patient/caregiver will be able to identify and report symptoms of sepsis Description: Patient/caregiver will be able to identify signs/symptoms of sepsis infection and will verbalize actions to take if suspected by 06-16-22. Sepsis Completed Yes Patient to maintain parameters within physician-specified ranges throughout certification period Physician Specific Parameters Completed Yes Manage Risk for falls Description: Patient/caregiver will verbalize knowledge of individualized fall prevention strategies by 06-16-22. . Risk for Falls Completed Yes Manage Nutrition/Hydration Description: Patient/caregiver will verbalize/demonstrate knowledge of prescribed diet and/or healthy nutrition to be achieved by 06-16-22. . Nutrition/Hydration Completed Yes Manage discharge planning Description: Patient/caregiver will verbalize understanding of ongoing discharge plan provided related to disease management, arrangements for outpatient and/or community services, obtaining medications, supplies, and DME, as needed throughout certification period. Discharge Completed Yes Patient/caregiver will make healthcare providers aware of and any changes to Advance Directives throughout certification period Advance Directives Completed Yes Patient/Caregiver will have improved healing and be free of signs and symptoms of complications Description: Patient/caregiver will verbalize management strategies to promote wound healing & prevent complications as evidenced by improved healing & no complications by 06-16-22. SN Integumentary/Wounds Completed Yes Patient/Caregiver will verbalize understanding and demonstrate improved management of genitourinary disease/condition. Description: Patient/Caregiver will state understanding of genitourinary disease/condition and be able to teach back management strategies by 06-16-22. SN Genitourinary disease process Completed Yes Improved management of GI disease/condition Description: Patient/Caregiver will demonstrate understanding of GI education as evidenced by improved management of gastrointestinal disease/condition by 06-16-22. . SN Gastrointestinal Completed Yes Interventions Intervention Associated Problem/Goal Status Variance Visit Notes Medication Education Description: Evaluate/instruct patient/caregiver on obtaining, storing, identifying and administering ordered medications as well as keeping accurate medication list in the home and adhereing to medication schedule Problem:Medication Education Goal:Patient/caregive r will demonstrate ability to obtain, store, identify and administer ordered medications, keep accurate medication list in home, and adhere to medication schedule Completed Patient instructed on adhering to medication schedule. Risk of Sepsis Description: Patient is at risk for sepsis. Monitor closely for s/s of sepsis. Problem:Sepsis Goal:Patient/caregive r will be able to identify and report symptoms of sepsis Completed SPO2 Description: Notify Dr. Mullins if pulse ox is <92% at rest. Problem:Physician Specific Parameters Goal:Patient to maintain parameters within physician-specified ranges throughout certification period Completed Instruct on individual fall risk factors and strategies to prevent falls and injuries caused by falls. Problem:Risk for Falls Goal:Manage Risk for falls Completed SN: Patient instructed on Eliminating Environmental Hazards: Keep pathways clear Define patient s appetite/hydration status and implement strategies to improve compliance with prescribed diet and/or healthy nutrition. Problem:Nutrition/Hyd ration Goal:Manage Nutrition/Hydration Completed reinforced patient on implementing strategies to comply with healthy nutrition and adequate hydration Instruct on final discharge plan and deliver discharge instructions Problem:Discharge Goal:Manage discharge planning Completed Delivered Discharge plan: Discharge plan discussed with patient for plan for transition to: live independently at home without ongoing services Deliver NOMNC Problem:Discharge Goal:Manage discharge planning Patient unwilling Instruct patient/caregiver healing process and management measures to promote healing and avoid complications Problem:SN Integumentary/Wounds Goal:Patient/Caregive r will have improved healing and be free of signs and symptoms of complications Completed patient instructed on the following: healing process, signs and symptoms of infection and when to report symptoms. Instruct Patient/Caregiver on wound/incision care procedure as ordered by physician Problem:SN Integumentary/Wounds Goal:Patient/Caregive r will have improved healing and be free of signs and symptoms of complications Completed patient instructed on wound care as ordered by Physician. Wound Care: Perform wound care (1) Description: Incision location: mid abdominal incision Order: Pack base of incision with nugauze dressing and change twice daily to keep site dry and clean. Remove packing when showering and allow soapy water to run over wound. Pat to dry. Continue to pack wound until [facility] f/u appt. If drainage decreases before then, you may decrease packin g to once daily. Notify Dr. Mullins's office if drainage becomes green/brown. Frequency: twice daily and has needed for drainage Measure wound/incision weekly and as needed. Problem:SN Integumentary/Wounds Goal:Patient/Caregive r will have improved healing and be free of signs and symptoms of complications Patient independent Urostomy- Instruct Patient/Caregiver on urostomy management Problem:SN Genitourinary disease process Goal:Patient/Caregive r will verbalize understanding and demonstrate improved management of genitourinary disease/condition. Completed patient instructed on the following: s/s complication. Urostomy- Complete pouch change Description: Pouch to be changed: 2x a week and PRN. Pouch procedure: Remove old pouch, complete peristomal care, use skin prep, power, barrier ring, two piece and convex. Adjust ostomy procedure as needed for leaking/fit complications Problem:SN Genitourinary disease process Goal:Patient/Caregive r will verbalize understanding and demonstrate improved management of genitourinary disease/condition. Patient independent Ostomy: Instruct Patient/Caregiver on Ostomy management Problem:SN Gastrointestinal Goal:Improved management of GI disease/condition Completed patient instructed on the following: peristomal skin care. Ostomy: Complete Pouch Change Description: Pouch to be changed: 2x a week and PRN. Pouch procedure: Remove old pouch, complete peristomal care, use skin prep, powder, barrier ring and two piece, adjust ostomy procedure as needed for leaking/fit complications. Problem:SN Gastrointestinal Goal:Improved management of GI disease/condition Patient independent documented in this encounter [facility] for referral (narrative)* Outpatient Procedure (Urgent) - Closed Specialty Diagnoses / Procedures Referred By Winston foster Referred To [facility] Diagnoses Lung nodule Procedures LUNG DIFFUSION CAPACITY (DLCO) DIFFUSING CAPACITY Afia Cisneros MD, PhD [address] [employer] [address] [address] [facility] [address] [place] [id number] Referral ID Status Reason Start Date Expiration Date V isits Requested Visits Authorized [id number] Closed Auto-Generate d Referral 08/30/2022 09/29/2023 1 1 * Outpatient Procedure (Urgent) - Closed Specialty Diagnoses / Procedures Referred By Winston foster Referred To Contact [facility] Diagnoses Lung nodule Procedures SPIROMETRY BASELINE ONLY SPMTRY W/VC EXPIRATORY MEERA W/WO MXML VOL VNTJ Afia Cisneros MD, PhD [address] [place] [address] [facility] [address] [place] [address] Referral ID Status Reason Start Date Expiration Date V isits Requested Visits Authorized [id number] Closed Auto-Generate d Referral 08/30/2022 09/29/2023 1 1 [facility] Diagnostic Procedure Only (Routine) - Closed Specialty Diagnoses / Procedures Referred By Contac t Referred To Contact [facility]AG[facility] Diagnoses Lung nodule Pre-op testing Encounter for other preprocedural examination SOB (shortness of breath) Procedures NM CARDIAC PERF STRESS/EXERCISE MYOCARDIAL SPECT MULTIPLE STUDIES Afia Cisneros MD, PhD [address] [facility] [address] [place] [address] Molecular & Functional Imaging [address] [place] [address] Referral ID Status Reason Start Date Expiration Date V isits Requested Visits Authorized [id number] Closed Auto-Generate d Referral 09/07/2022 10/04/2023 1 1 [facility] Summary Purpose Family History No Family History Records Found Relationship Condition Age at Onset Recorded Date/T andrew brother Cardiac disease Unknown father Malignant neoplasm Unknown Cardiac disease Unknown mother Cardiac disease Unknown Advance Directives No Advanced Directives Records FoundDocuments on File Type Date Recorded 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 Advance Directive(s) 07/14/2019 4:21 PM Latest Code Status on File Code Status Date Activated Date Inactivated Comments DNR-CCA 05/18/2022 12:15 PM DNR Order Discussed With: Patient Advance Directive Response Recorded Date/ Time Living Will Yes May 02, 2020 10:52pm Power of Pharmacy Innovation Assistant Yes May 02 10:52pm Documents on File Type Date Recorded 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 Advance Directive(s) 11/01/2020 10:25 AM Advance Directive(s) 10/21/2020 11:39 AM Advance Directive(s) 10/25/2019 9:52 PM Advance Directive(s) 07/14/2019 1:20 PM Advance Directive(s) 07/14/2019 4:20 PM Advance Directive(s) 07/14/2019 4:21 PM Documents on File Type Date Recorded 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 Advance Directive(s) 11/01/2020 10:25 AM Advance Directive(s) 10/21/2020 11:39 AM Advance Directive(s) 10/25/2019 9:52 PM Advance Directive(s) 07/14/2019 1:20 PM Advance Directive(s) 07/14/2019 4:20 PM Advance Directive(s) 07/14/2019 4:21 PM Documents on File Type Date Recorded 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 Advance Directive(s) 02/04/2022 5:44 PM Advance Directive(s) 11/01/2020 10:25 AM Advance Directive(s) 10/21/2020 11:39 AM Advance Directive(s) 10/25/2019 9:52 PM Advance Directive(s) 07/14/2019 1:20 PM Advance Directive(s) 07/14/2019 4:20 PM Advance Directive(s) 07/14/2019 4:21 PM Documents on File Type Date Recorded 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 Advance Directive(s) 02/04/2022 5:44 PM Advance Directive(s) 11/01/2020 10:25 AM Advance Directive(s) 10/21/2020 11:39 AM Advance Directive(s) 10/25/2019 9:52 PM Advance Directive(s) 07/14/2019 1:20 PM Advance Directive(s) 07/14/2019 4:20 PM Advance Directive(s) 07/14/2019 4:21 PM Documents on File Type Date Recorded 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 Advance Directive(s) 04/17/2022 9:14 AM Advance Directive(s) 02/04/2022 5:44 PM Advance Directive(s) 11/01/2020 10:25 AM Advance Directive(s) 10/21/2020 11:39 AM Advance Directive(s) 10/25/2019 9:52 PM Advance Directive(s) 07/14/2019 1:20 PM Advance Directive(s) 07/14/2019 4:20 PM Advance Directive(s) 07/14/2019 4:21 PM Advance Directive Response Recorded Date/ Time Living Will Yes May 13 1:38pm Power of Pharmacy Innovation Assistant No May 13 1:38pm Advance Directive Response Recorded Date/ Time Name of Medical Power of Pharmacy Innovation Assistant Zainguilherme Johnson May 13, 2022 11:37pm Living Will Yes May 13 11:37pm Power of Pharmacy Innovation Assistant Yes May 13 022 11:37pm Latest Code Status on File Code Status Date Activated Date Inactivated Comments DNR-CC 05/23/2022 4:27 PM DNR-CCA 05/18/2022 12:15 PM 05/21/2022 5:47 PM Documents on File Type Date Recorded 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 Advance Directive(s) 05/24/2022 7:11 PM Advance Directive(s) 07/14/2019 4:21 PM Latest Code Status on File Code Status Date Activated Date Inactivated Comments DNR-CC 05/23/2022 4:27 PM 06/27/2022 1:51 PM Advance Directive Response Recorded Date/ Time Name of Medical Power of Pharmacy Innovation Assistant Zain Johnson May 13, 2022 10:37pm Living Will Yes May 13 10:37pm Power of Pharmacy Innovation Assistant Yes May 13 022 10:37pm Documents on File Type Date Recorded 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 Advance Directive(s) 05/24/2022 7:11 PM Advance Directive(s) 07/14/2019 4:21 PM Latest Code Status on File Code Status Date Activated Date Inactivated Comments DNR-CC 05/23/2022 4:27 PM 06/27/2022 1:51 PM DNR-CCA 05/18/2022 12:15 PM 05/21/2022 5:47 PM Advance Directive Response Recorded Date/ Time Living Will Yes May 13 10:37pm Power of Pharmacy Innovation Assistant Yes May 13 10:37pm Latest Code Status on File Code Status Date Activated Date Inactivated Comments DNR-CC 05/23/2022 4:27 PM 06/27/2022 1:51 PM Code Status History Code Status Date Activated Date Inactivated Comments DNR-CCA 05/18/2022 12:15 PM 05/21/2022 5:47 PM Question Answer Comments DNR Order Discussed With: Patient Latest Code Status on File Code Status Date Activated Date Inactivated Comments DNR-CC 05/23/2022 4:27 PM 06/27/2022 1:51 PM Code Status History Code Status Date Activated Date Inactivated Comments DNR-CCA 05/18/2022 12:15 PM 05/21/2022 5:47 PM Question Answer Comments DNR Order Discussed With: Patient Date Activated Date Inactivated Comments 05/23/2022 4:27 PM 06/27/2022 1:51 PM Date Activated Date Inactivated Comments 05/18/2022 12:15 PM 05/21/2022 5:47 PM Question Answer Comments DNR Order Discussed With: Patient Chief Complaint and Reason for Visit Chief Complaint Lower abdominal pain , unspecified Chief Complaint Lower abdominal pain , unspecified LUNG NODULE Chief Complaint Lower abdominal pain , unspecified LUNG NODULE POST OP INFECTION Reason for Visit Abdominopelvic absce ss Hypokalemia Wound infection after surgery Chief Complaint LUNG NODULE POST OP INFECTION POST OP INFECTION POST OP INFECTION POST OP INFECTION POST OP INFECTION POST OP INFECTION Reason for Visit Abdominopelvic absce ss Hypokalemia Wound infection after surgery Chief Complaint LUNG NODULE POST OP INFECTION POST OP INFECTION POST OP INFECTION POST OP INFECTION POST OP INFECTION POST OP INFECTION POST OP INFECTION ABNORMAL FINDING OF LUNG FIELD Reason for Visit Hypokalemia Chief Complaint POST OP INFECTION POST OP INFECTION POST OP INFECTION POST OP INFECTION POST OP INFECTION POST OP INFECTION POST OP INFECTION ABNORMAL FINDING OF LUNG FIELD POSITIVE PET SCAN Reason for Visit Hypokalemia Chief Complaint POSITIVE PET SCAN Chief Complaint POSITIVE PET SCAN UTI Reason for Referral Specialty Diagnoses / Procedures Referred By Winston foster Referred To Contact MR IMAGING Diagnoses Enterocutaneous fistula S/P ileal conduit (HCC) History of bladder cancer Incisional hernia, without obstruction or gangrene Procedures MRI PELVIS WO/W IVCON MRI PELVIS W/O & W/CONTRAST MATERIAL Melly Michele MD [address] [place] [address] Mr Imaging Referral ID Status Reason Start Date Expiration Date Visits Requested Visits Authorized [id number] Authorized Auto-Generat ed Referral 02/02/2022 03/04/2023 1 1 Specialty Diagnoses / Procedures Referred By Winston foster Referred To Contact [facility] IMAGING Diagnoses Enterocutaneous fistula S/P ileal conduit (HCC) History of bladder cancer Incisional hernia, without obstruction or gangrene Procedures MRI ABDOMEN WO/W IVCON MRI ABDOMEN W/O & W/CONTRAST MATERIAL Melly Michele MD [address] [place] [address] Mr Imaging Referral ID Status Reason Start Date Expiration Date Visits Requested Visits Authorized [id number] Pending Review Auto-Generat ed Referral 02/02/2022 03/04/2023 1 1 Specialty Diagnoses / Procedures Referred By Contac t Referred To Contact Urology Diagnoses Enterocutaneous fistula Procedures CONSULT TO UROLOGY OFFICE/OUTPATIENT [facility] 60-74 MINUTES John Mullins MD [address] [place] [id number] Referral ID Status Reason Start Date Expiration Date Visits Requested Visits Authorized [id number] Authorized PCP Requested Referral 03/13/2022 03/13/2023 1 1 Specialty Diagnoses / Procedures Referred By Contac t Referred To Contact Pulmonary Disease Diagnoses Malignant neoplasm of urinary bladder, unspecified site (HCC) Lung nodule Procedures CONSULT TO LUNG NODULE CLINIC OFFICE/OUTPATIENT [facility] 60-74 MINUTES Jose Deluna MD [address] [place] [phone] Referral ID Status Reason Start Date Expiration Date Visits Requested Visits Authorized [id number] Authorized PCP Requested Referral 03/24/2022 03/24/2023 1 1 Specialty Diagnoses / Procedures Referred By Contac t Referred To Contact CT IMAGING Diagnoses Lung nodule Pre-op testing SOB (shortness of breath) Procedures CT CHEST W IVCON DIAGNOSTIC COMPUTED TOMOGRAPHY THORAX W/CONTRAST Afia Cisneros MD, PhD [address] [facility] [address] [place] [address] Ct Imaging Referral ID Status Reason Start Date Expiration Date V isits Requested Visits Authorized [id number] Closed Auto-Generate d Referral 09/07/2022 10/04/2023 1 1 Specialty Diagnoses / Procedures Referred By Contac t Referred To Contact CT IMAGING Diagnoses Malignant neoplasm of unspecified part of unspecified bronchus or lung (HCC) Procedures CT CHEST WO IVCON DIAGNOSTIC COMPUTED TOMOGRAPHY THORAX W/O Radha Gee, RIPENING ROOM OPERATOR.STAFFING ACCOUNT MANAGER [address] [place] [address] Ct Imaging Referral ID Status Reason Start Date Expiration Date Visits Requested Visits Authorized [id number] Authorized Auto-Generat ed Referral 12/05/2022 01/04/2024 1 1 Specialty Diagnoses / Procedures Referred By Contac t Referred To Contact CT IMAGING Diagnoses Malignant neoplasm of unspecified part of unspecified bronchus or lung (HCC) Procedures CT CHEST WO IVCON DIAGNOSTIC COMPUTED TOMOGRAPHY THORAX W/O CNTRST Radha Beal, RIPENING ROOM OPERATOR.STAFFING ACCOUNT MANAGER [address] [place] [address] Ct Imaging [facility] Referral ID Status Reason Start Date Expiration Date V isits Requested Visits Authorized [id number] Closed Auto-Generate d Referral 12/05/2022 01/04/2024 1 1 Referral ID Status Reason Start Date Expiration Date V isits Requested Visits Authorized [id number] Closed Auto-Generate d Referral 10/11/2023 11/09/2024 1 1 Referral ID Status Reason Start Date Expiration Date Visits Requested Visits Authorized [id number] New Request Auto-Generat ed Referral 04/15/2024 05/15/2025 1 1 Referral ID Status Reason Start Date Expiration Date V isits Requested Visits Authorized [id number] Closed Auto-Generate d Referral 04/15/2024 05/15/2025 1 1 Referral ID Status Reason Start Date Expiration Date Visits Requested Visits Authorized [id number] New Request Auto-Generat ed Referral 10/16/2024 11/15/2025 1 1 Additional Source Comments (unrecognized sect ion and content) No Status Records FoundNo Status Records FoundNo Status Records FoundNo Status Records FoundNo Status Records FoundNo Status Records FoundNo Status Records FoundNo Status Records Found INFORMATION SOURCE (unrecogn ized section and content) DATE CREATED AUTHOR 03/25/2018 [facility] DATE CREATED AUTHOR AUTHOR'S ORGANIZ ATION 03/25/2018 [facility] DATE CREATED AUTHOR AUTHOR'S ORGANIZ ATION 09/07/2018 [facility] DATE CREATED AUTHOR AUTHOR'S ORGANIZ ATION 09/27/2018 [facility] DATE CREATED AUTHOR AUTHOR'S ORGANIZ ATION 06/30/2019 [facility] DATE CREATED AUTHOR AUTHOR'S ORGANIZ ATION 02/03/2022 [facility] DATE CREATED AUTHOR AUTHOR'S ORGANIZ ATION 10/18/2024 [facility] DATE CREATED AUTHOR AUTHOR'S ORGANIZ ATION 11/14/2024 [facility] Goals (unrecognized section and content) Goals may be documented in a n alternate sectionGoals may be documented in an alternate sectionGoals may be documented in an alternate sectionGoals may be documented in an alternate sectionGoals may be documented in an alternate sectionGoals may be documented in an alternate section Source Comments (unrecognize d section and content) In the event this informatio n is protected by the Federal Confidentiality of Alcohol and Drug Abuse Patient Records regulations: The Federal rules restrict any use of the information to criminally investigate or prosecute any alcohol or drug abuse patient.[facility]bleIn the event this information is protected by the Federal Confidentiality of Alcohol and Drug Abuse Patient Records regulations: The Federal rules restrict any use of the information to criminally investigate or prosecute any alcohol or drug abuse patient.[facility]bleIn the event this information is protected by the Federal Confidentiality of Alcohol and Drug Abuse Patient Records regulations: The Federal rules restrict any use of the information to criminally investigate or prosecute any alcohol or drug abuse patient.[facility]bleIn the event this information is protected by the Federal Confidentiality of Alcohol and Drug Abuse Patient Records regulations: The Federal rules restrict any use of the information to criminally investigate or prosecute any alcohol or drug abuse patient.[facility]bleIn the event this information is protected by the Federal Confidentiality of Alcohol and Drug Abuse Patient Records regulations: The Federal rules restrict any use of the information to criminally investigate or prosecute any alcohol or drug abuse patient.[facility]bleIn the event this information is protected by the Federal Confidentiality of Alcohol and Drug Abuse Patient Records regulations: The Federal rules restrict any use of the information to criminally investigate or prosecute any alcohol or drug abuse patient.[facility]bleIn the event this information is protected by the Federal Confidentiality of Alcohol and Drug Abuse Patient Records regulations: The Federal rules restrict any use of the information to criminally investigate or prosecute any alcohol or drug abuse patient.[facility]bleIn the event this information is protected by the Federal Confidentiality of Alcohol and Drug Abuse Patient Records regulations: The Federal rules restrict any use of the information to criminally investigate or prosecute any alcohol or drug abuse patient.[facility]bleIn the event this information is protected by the Federal Confidentiality of Alcohol and Drug Abuse Patient Records regulations: The Federal rules restrict any use of the information to criminally investigate or prosecute any alcohol or drug abuse patient.[facility]bleIn the event this information is protected by the Federal Confidentiality of Alcohol and Drug Abuse Patient Records regulations: The Federal rules restrict any use of the information to criminally investigate or prosecute any alcohol or drug abuse patient.[facility]bleIn the event this information is protected by the Federal Confidentiality of Alcohol and Drug Abuse Patient Records regulations: The Federal rules restrict any use of the information to criminally investigate or prosecute any alcohol or drug abuse patient.[facility]bleIn the event this information is protected by the Federal Confidentiality of Alcohol and Drug Abuse Patient Records regulations: The Federal rules restrict any use of the information to criminally investigate or prosecute any alcohol or drug abuse patient.[facility]bleIn the event this information is protected by the Federal Confidentiality of Alcohol and Drug Abuse Patient Records regulations: The Federal rules restrict any use of the information to criminally investigate or prosecute any alcohol or drug abuse patient.[facility]bleIn the event this information is protected by the Federal Confidentiality of Alcohol and Drug Abuse Patient Records regulations: The Federal rules restrict any use of the information to criminally investigate or prosecute any alcohol or drug abuse patient.[facility] PrebleIn the event this information is protected by the Federal Confidentiality of Alcohol and Drug Abuse Patient Records regulations: The Federal rules restrict any use of the information to criminally investigate or prosecute any alcohol or drug abuse patient.[facility] PrebleIn the event this information is protected by the Federal Confidentiality of Alcohol and Drug Abuse Patient Records regulations: The Federal rules restrict any use of the information to criminally investigate or prosecute any alcohol or drug abuse patient.[facility] PrebleIn the event this information is protected by the Federal Confidentiality of Alcohol and Drug Abuse Patient Records regulations: The Federal rules restrict any use of the information to criminally investigate or prosecute any alcohol or drug abuse patient.[facility] PrebleIn the event this information is protected by the Federal Confidentiality of Alcohol and Drug Abuse Patient Records regulations: The Federal rules restrict any use of the information to criminally investigate or prosecute any alcohol or drug abuse patient.[facility] PrebleIn the event this information is protected by the Federal Confidentiality of Alcohol and Drug Abuse Patient Records regulations: The Federal rules restrict any use of the information to criminally investigate or prosecute any alcohol or drug abuse patient.[facility] PrebleIn the event this information is protected by the Federal Confidentiality of Alcohol and Drug Abuse Patient Records regulations: The Federal rules restrict any use of the information to criminally investigate or prosecute any alcohol or drug abuse patient.[facility] PrebleIn the event this information is protected by the Federal Confidentiality of Alcohol and Drug Abuse Patient Records regulations: The Federal rules restrict any use of the information to criminally investigate or prosecute any alcohol or drug abuse patient.[facility] PrebleIn the event this information is protected by the Federal Confidentiality of Alcohol and Drug Abuse Patient Records regulations: The Federal rules restrict any use of the information to criminally investigate or prosecute any alcohol or drug abuse patient.[facility] PrebleIn the event this information is protected by the Federal Confidentiality of Alcohol and Drug Abuse Patient Records regulations: The Federal rules restrict any use of the information to criminally investigate or prosecute any alcohol or drug abuse patient.[facility]bleIn the event this information is protected by the Federal Confidentiality of Alcohol and Drug Abuse Patient Records regulations: The Federal rules restrict any use of the information to criminally investigate or prosecute any alcohol or drug abuse patient.[facility] PrebleIn the event this information is protected by the Federal Confidentiality of Alcohol and Drug Abuse Patient Records regulations: The Federal rules restrict any use of the information to criminally investigate or prosecute any alcohol or drug abuse patient.[facility] PrebleIn the event this information is protected by the Federal Confidentiality of Alcohol and Drug Abuse Patient Records regulations: The Federal rules restrict any use of the information to criminally investigate or prosecute any alcohol or drug abuse patient.[facility] PrebleIn the event this information is protected by the Federal Confidentiality of Alcohol and Drug Abuse Patient Records regulations: The Federal rules restrict any use of the information to criminally investigate or prosecute any alcohol or drug abuse patient.[facility]bleIn the event this information is protected by the Federal Confidentiality of Alcohol and Drug Abuse Patient Records regulations: The Federal rules restrict any use of the information to criminally investigate or prosecute any alcohol or drug abuse patient.[facility] PrebleIn the event this information is protected by the Federal Confidentiality of Alcohol and Drug Abuse Patient Records regulations: The Federal rules restrict any use of the information to criminally investigate or prosecute any alcohol or drug abuse patient.[facility] PrebleIn the event this information is protected by the Federal Confidentiality of Alcohol and Drug Abuse Patient Records regulations: The Federal rules restrict any use of the information to criminally investigate or prosecute any alcohol or drug abuse patient.[facility] PrebleIn the event this information is protected by the Federal Confidentiality of Alcohol and Drug Abuse Patient Records regulations: The Federal rules restrict any use of the information to criminally investigate or prosecute any alcohol or drug abuse patient.[facility]bleIn the event this information is protected by the Federal Confidentiality of Alcohol and Drug Abuse Patient Records regulations: The Federal rules restrict any use of the information to criminally investigate or prosecute any alcohol or drug abuse patient.[facility] PrebleIn the event this information is protected by the Federal Confidentiality of Alcohol and Drug Abuse Patient Records regulations: The Federal rules restrict any use of the information to criminally investigate or prosecute any alcohol or drug abuse patient.[facility]bleIn the event this information is protected by the Federal Confidentiality of Alcohol and Drug Abuse Patient Records regulations: The Federal rules restrict any use of the information to criminally investigate or prosecute any alcohol or drug abuse patient.[facility]bleIn the event this information is protected by the Federal Confidentiality of Alcohol and Drug Abuse Patient Records regulations: The Federal rules restrict any use of the information to criminally investigate or prosecute any alcohol or drug abuse patient.[facility]bleIn the event this information is protected by the Federal Confidentiality of Alcohol and Drug Abuse Patient Records regulations: The Federal rules restrict any use of the information to criminally investigate or prosecute any alcohol or drug abuse patient.[facility]bleIn the event this information is protected by the Federal Confidentiality of Alcohol and Drug Abuse Patient Records regulations: The Federal rules restrict any use of the information to criminally investigate or prosecute any alcohol or drug abuse patient.[facility] PrebleIn the event this information is protected by the Federal Confidentiality of Alcohol and Drug Abuse Patient Records regulations: The Federal rules restrict any use of the information to criminally investigate or prosecute any alcohol or drug abuse patient.[facility]bleIn the event this information is protected by the Federal Confidentiality of Alcohol and Drug Abuse Patient Records regulations: The Federal rules restrict any use of the information to criminally investigate or prosecute any alcohol or drug abuse patient.[facility]bleIn the event this information is protected by the Federal Confidentiality of Alcohol and Drug Abuse Patient Records regulations: The Federal rules restrict any use of the information to criminally investigate or prosecute any alcohol or drug abuse patient.[facility]bleIn the event this information is protected by the Federal Confidentiality of Alcohol and Drug Abuse Patient Records regulations: The Federal rules restrict any use of the information to criminally investigate or prosecute any alcohol or drug abuse patient.[facility]bleIn the event this information is protected by the Federal Confidentiality of Alcohol and Drug Abuse Patient Records regulations: The Federal rules restrict any use of the information to criminally investigate or prosecute any alcohol or drug abuse patient.[facility]bleIn the event this information is protected by the Federal Confidentiality of Alcohol and Drug Abuse Patient Records regulations: The Federal rules restrict any use of the information to criminally investigate or prosecute any alcohol or drug abuse patient.[facility]bleIn the event this information is protected by the Federal Confidentiality of Alcohol and Drug Abuse Patient Records regulations: The Federal rules restrict any use of the information to criminally investigate or prosecute any alcohol or drug abuse patient.[facility]bleIn the event this information is protected by the Federal Confidentiality of Alcohol and Drug Abuse Patient Records regulations: The Federal rules restrict any use of the information to criminally investigate or prosecute any alcohol or drug abuse patient.[facility] PrebleIn the event this information is protected by the Federal Confidentiality of Alcohol and Drug Abuse Patient Records regulations: The Federal rules restrict any use of the information to criminally investigate or prosecute any alcohol or drug abuse patient.[facility]bleIn the event this information is protected by the Federal Confidentiality of Alcohol and Drug Abuse Patient Records regulations: The Federal rules restrict any use of the information to criminally investigate or prosecute any alcohol or drug abuse patient.[facility]bleIn the event this information is protected by the Federal Confidentiality of Alcohol and Drug Abuse Patient Records regulations: The Federal rules restrict any use of the information to criminally investigate or prosecute any alcohol or drug abuse patient.[facility]bleIn the event this information is protected by the Federal Confidentiality of Alcohol and Drug Abuse Patient Records regulations: The Federal rules restrict any use of the information to criminally investigate or prosecute any alcohol or drug abuse patient.[facility]bleIn the event this information is protected by the Federal Confidentiality of Alcohol and Drug Abuse Patient Records regulations: The Federal rules restrict any use of the information to criminally investigate or prosecute any alcohol or drug abuse patient.[facility]bleIn the event this information is protected by the Federal Confidentiality of Alcohol and Drug Abuse Patient Records regulations: The Federal rules restrict any use of the information to criminally investigate or prosecute any alcohol or drug abuse patient.[facility]bleIn the event this information is protected by the Federal Confidentiality of Alcohol and Drug Abuse Patient Records regulations: The Federal rules restrict any use of the information to criminally investigate or prosecute any alcohol or drug abuse patient.[facility]bleIn the event this information is protected by the Federal Confidentiality of Alcohol and Drug Abuse Patient Records regulations: The Federal rules restrict any use of the information to criminally investigate or prosecute any alcohol or drug abuse patient.[facility]bleIn the event this information is protected by the Federal Confidentiality of Alcohol and Drug Abuse Patient Records regulations: The Federal rules restrict any use of the information to criminally investigate or prosecute any alcohol or drug abuse patient.[facility] Reason for Visit (unrecogniz ed section and content) Reason Comments Consult Inguinal Hernia Reason Comments Results - Ct CT scan from [facility] Reason Comments Patient Update Reason Comments Home Care confirmation call Reason Comments Home Care MD to follow Reason Comments Home Care [facility] CALL Reason Comments Home Care non admit to home he alth Reason Comments Follow Up Phone Call Post Discharge F/U attempt made. No answer. Reason Comments Established Patient Reason Comments New Patient Specialty Diagnoses / Procedures Referred By Winston t Referred To Contact Urology Diagnoses Enterocutaneous fistula Procedures CONSULT TO UROLOGY OFFICE/OUTPATIENT NEW HIGH MDM 60-74 MINUTES John Mullins MD [address] [place] [phone] Referral ID Status Reason Start Date Expiration Date V isits Requested Visits Authorized [id number] Closed PCP Requested Referral 03/13/2022 03/13/2023 1 1 Reason Comments Patient Update Reason Comments Follow Up Reason Comments Pre-Op Visit Specialty Diagnoses / Procedures Referred By Winston t Referred To Contact ANESTHESIOLOGY Diagnoses PREOP Procedures COMPLETE PACC John Mullins MD [address] [place] [phone] 4, Pacc Main [address] [facility] [address] Referral ID Status Reason Start Date Expiration Date V isits Requested Visits Authorized [id number] Pending Review 04/18/2022 07/17/2022 5 5 Reason Comments Received Outside Medical Records Coumadi n Reason Comments Care Coordination Reason Comments Follow Up Phone Call All Clear Reason Comments Parking Analyst - Other Reason Comments Home Care Confirmation Call Reason Comments Established Patient Reason Comments Home Care error Reason Comments Bronchoscopy Scheduling-CLEARED Initial bronch request Reason Comments pre op bronch Scheduled and confir med with patient on 06/27/2022. Reason Comments Results Reason Comments Spirometry Specialty Diagnoses / Procedures Referred By Contac t Referred To Contact [facility] Diagnoses Lung nodule Procedures LUNG DIFFUSION CAPACITY (DLCO) DIFFUSING CAPACITY Afia Cisneros MD, PhD [address] [employer] [facility] [address] [address] Referral ID Status Reason Start Date Expiration Date V isits Requested Visits Authorized [id number] Closed Auto-Generate d Referral 08/30/2022 09/29/2023 1 1 Specialty Diagnoses / Procedures Referred By Contac t Referred To Contact [facility] Diagnoses Lung nodule Procedures SIX MINUTE WALK CARDIOPULMONARY EXERCISE STRESS Afia Cisneros MD, PhD [address] [employer] [address] [address] [place] [address] Referral ID Status Reason Start Date Expiration Date V isits Requested Visits Authorized [id number] Closed Auto-Generate d Referral 08/28/2022 09/27/2023 1 1 Specialty Diagnoses / Procedures Referred By Contac t Referred To Contact [facility] Diagnoses Lung nodule Procedures SPIROMETRY BASELINE ONLY SPMTRY W/VC EXPIRATORY MEERA W/WO MXML VOL VNTJ Afia Cisneros MD, PhD [address] [address] [address] Referral ID Status Reason Start Date Expiration Date V isits Requested Visits Authorized [id number] Closed Auto-Generate d Referral 08/30/2022 09/29/2023 1 1 Reason Comments Consult Reason Comments Radiology NM Specialty Diagnoses / Procedures Referred By Winston t Referred To Contact [facility] Diagnoses Lung nodule Pre-op testing Encounter for other preprocedural examination SOB (shortness of breath) Procedures NM CARDIAC PERF STRESS/EXERCISE MYOCARDIAL SPECT MULTIPLE STUDIES Afia Cisneros MD, PhD [address] [address] [address] [facility] [address] [place] [address] Referral ID Status Reason Start Date Expiration Date V isits Requested Visits Authorized [id number] Closed Auto-Generate d Referral 09/07/2022 10/04/2023 [address] Specialty Diagnoses / Procedures Referred By Contac t Referred To Contact CT IMAGING Diagnoses Lung nodule Pre-op testing SOB (shortness of breath) Procedures CT CHEST W IVCON DIAGNOSTIC COMPUTED TOMOGRAPHY THORAX W/CONTRAST Afia Cisneros MD, PhD [address] [facility] [address] [place] [address] Ct Imaging Referral ID Status Reason Start Date Expiration Date V isits Requested Visits Authorized [id number] Closed Auto-Generate d Referral 09/07/2022 10/04/2023 1 1 Reason Comments Post-Op Visit Reason Comments Radio Main J1 Reason Comments Lung Cancer Reason Comments Home Care Need for continued H H orders Specialty Diagnoses / Procedures Referred By Contac t Referred To Contact CT IMAGING Diagnoses Malignant neoplasm of unspecified part of unspecified bronchus or lung (HCC) Procedures CT CHEST WO IVCON DIAGNOSTIC COMPUTED TOMOGRAPHY THORAX W/O Radha Gee, RIPENING ROOM OPERATOR.STAFFING ACCOUNT MANAGER [id number] [facility] [place] [address] Referral ID Status Reason Start Date Expiration Date V isits Requested Visits Authorized [id number] Closed Auto-Generate d Referral 12/05/2022 01/04/2024 1 1 Referral ID Status Reason Start Date Expiration Date V isits Requested Visits Authorized [id number] Closed Auto-Generate d Referral 10/11/2023 11/09/2024 1 1 Reason Comments Malignant neoplasm of unspecified part o f unspecified bronc Referral ID Status Reason Start Date Expiration Date V isits Requested Visits Authorized [id number] Closed Auto-Generate d Referral 04/15/2024 05/15/2025 1 1 Care Teams (unrecognized sec tion and content) Digester Capper Relationship Specialty Start Date End Date Seng Carlisle, [address] [facility] [address] [place] [address] PCP - General Family Practice 10/21/20 Digester Capper Relationship Specialty Start Date End Date Orestes Seng Coleman, [address] [facility] [address] [place] [address] PCP - General Family Practice 10/21/20 Digester Capper Relationship Specialty Start Date End Date Seng Carlisle Jared, [address] [facility] [address] [place] [address] PCP - General Family Practice 10/21/20 Digester Capper Relationship Specialty Start Date End Date Seng Carlisle JaredDO [address] [facility] [address] [place] [address] PCP - General Family Practice 10/21/20 Arlene Moreland PA-C [address] [place] [address] Referring Colon and Rectal Surgery 02/08/22 Arlene Moreland PA-C [address] [place] [address] Home Care Physician Colon and Rectal Surgery 02/08/22 Digester Capper Relationship Specialty Start Date End Date Arlene Moreland PA-C [address] [place] [address] Referring Colon and Rectal Surgery 02/08/22 Arlene Moreland PA-C [address] [place] [address] Home Care Physician Colon and Rectal Surgery 02/08/22 Og Goodwin MD [address] [place], [place] [address] [phone] Staff Physician Family Practice 02/09/22 Ayo Sorenson RN [address] [place] [address] Green Chain Operator Post Acute Care 02/09/22 Digester Capper Relationship Specialty Start Date End Date Arlene Moreland PA-C [address] [place] [address] Referring Colon and Rectal Surgery 02/08/22 Arlene Moreland PA-C [address] [place] [address] Home Care Physician Colon and Rectal Surgery 02/08/22 Og Goodwin MD [address] [place] [address] Primary Staff Physician Family Practice 02/09/22 Ayo Sorenson RN [address] [place] [address] Green Chain Operator Post Acute Care 02/09/22 Digester Capper Relationship Specialty Start Date End Date Arlene Moreland PA-C [address] [place] [address] Referring Colon and Rectal Surgery 02/08/22 Arlene Moreland PA-C [address] [place] [address] Home Care Physician Colon and Rectal Surgery 02/08/22 Og Goodwin MD [address] [place] [address] Primary Staff Physician Family Practice 02/09/22 Ayo Sorenson RN [address] [place] [address] Green Chain Operator Post Acute Care 02/09/22 Digester Capper Relationship Specialty Start Date End Date Arlene Moreland PA-C [address] [place] [address] Referring Colon and Rectal Surgery 02/08/22 Arlene Moreland PA-C [address] [place] [address] Home Care Physician Colon and Rectal Surgery 02/08/22 Og Goodwin MD [address] [place], [place] [address] Primary Staff Physician Family Practice 02/09/22 Ayo Sorenson RN [address] [place] [address] Green Chain Operator Post Acute Care 02/09/22 Digester Capper Relationship Specialty Start Date End Date Arlene Moreland PA-C [address] [place] [address] Referring Colon and Rectal Surgery 02/08/22 Arlene Moreland PA-C [address] [place] [address] Home Care Physician Colon and Rectal Surgery 02/08/22 Og Goodwin MD [address] [place] [address] Primary Staff Physician Family Practice 02/09/22 Ayo Sorenson RN [address] [place] [address] Green Chain Operator Post Acute Care 02/09/22 Digester Capper Relationship Specialty Start Date End Date Arlene Moreland PA-C [address] [place] [address] Referring Colon and Rectal Surgery 02/08/22 Arlene Moreland PA-C [address] [place] [address] Home Care Physician Colon and Rectal Surgery 02/08/22 Og Goodwin MD [address] [facility], [place] [address] Primary Staff Physician Family Practice 02/09/22 Ayo Sorenson RN [address] [place] [address] Green Chain Operator Post Acute Care 02/09/22 Digester Capper Relationship Specialty Start Date End Date Arlene Moreland PA-C [address] [place] [address] Referring Colon and Rectal Surgery 02/08/22 Arlene Moreland PA-C [address] [place] [address] Home Care Physician Colon and Rectal Surgery 02/08/22 Og Goodwin MD [address] [place] [address] Primary Staff Physician Family Practice 02/09/22 Ayo Sorenson RN [address] [place] [address] Green Chain Operator Post Acute Care 02/09/22 Digester Capper Relationship Specialty Start Date End Date Arlene Moreland PA-C [address] [place] [address] Referring Colon and Rectal Surgery 02/08/22 Arlene Moreland PA-C [address] [place] [address] Home Care Physician Colon and Rectal Surgery 02/08/22 Og Goodwin MD [address] [place] [address] Primary Staff Physician Family Practice 02/09/22 Ayo Sorenson RN [address] [place] [address] Green Chain Operator Post Acute Care 02/09/22 Digester Capper Relationship Specialty Start Date End Date Arlene Moreland PA-C [address] [place] [address] Referring Colon and Rectal Surgery 02/08/22 Arlene Moreland PA-C [address] [place] [address] Home Care Physician Colon and Rectal Surgery 02/08/22 Og Goodwin MD [address] [place], [place] [address]70[address] Primary Staff Physician Family Practice 02/09/22 Ayo Sorenson, LOREN [address] [place], [place] [id number] Green Chain Operator Post Acute Care 02/09/22 Digester Capper Relationship Specialty Start Date End Date Terrell Evans [address] [address] PCP - General 04/17/22 Arlene Moreland PA-C [address] [place] [address] Referring Colon and Rectal Surgery 02/08/22 Arlene Moreland PA-C [address] [place] [address] Home Care Physician Colon and Rectal Surgery 02/08/22 Og Goodwin MD [address] [place], [place] [address] Primary Staff Physician Family Practice 02/09/22 Ayo Sorenson, LOREN [address] [place], [place] [phone] Green Chain Operator Post Acute Care 02/09/22 Digester Capper Relationship Specialty Start Date End Date Terrell Evans [address] [facility] [address] [place], [place] [id number] PCP - General 04/17/22 Arlene Moreland PA-C [address] [place] [address] Referring Colon and Rectal Surgery 02/08/22 Arlene Moreland PA-C [address] [place] [address] Home Care Physician Colon and Rectal Surgery 02/08/22 Og Goodwin MD [address] [place], [place] 3[address] Primary Staff Physician Family Practice 02/09/22 Ayo Sorenson, LOREN [address] [place], [place] [id number] Green Chain Operator Post Acute Care 02/09/22 Digester Capper Relationship Specialty Start Date End Date Terrell Evans [address] [address] PCP - General 04/17/22 Arlene Moreland PA-C [address] [place] [address] Referring Colon and Rectal Surgery 02/08/22 Arlene Moreland PA-C [address] [place] [address] Home Care Physician Colon and Rectal Surgery 02/08/22 Og Goodwin MD [address] [place], [place] [id number] Primary Staff Physician Family Practice 02/09/22 Ayo Sorenson RN [address] [place], [place] [phone] Green Chain Operator Post Acute Care 02/09/22 Digester Capper Relationship Specialty Start Date End Date Terrell Evans [address] [facility] [address] [place] [address] PCP - General 04/17/22 Arlene Moreland PA-C [address] [place] [address] Referring Colon and Rectal Surgery 02/08/22 Arlene Moreland PA-C [address] [place] [address] Home Care Physician Colon and Rectal Surgery 02/08/22 Og Goodwin MD [address] [place] [address] Primary Staff Physician Family Practice 02/09/22 Ayo Sorenson, LOREN [address] [place] [id number] Green Chain Operator Post Acute Care 02/09/22 Digester Capper Relationship Specialty Start Date End Date Terrell Evans [address] [facility] [address] [place] [address] PCP - General 04/17/22 Og Goodwin MD [address] [place] [address] Primary Staff Physician Family Practice 02/09/22 John Mullins MD [address] [place], [place] [address] Referring Colon and Rectal Surgery 05/21/22 John Mullins MD [address] [place] [address] Home Care Physician Colon and Rectal Surgery 05/21/22 Ayo Sorenson, LOREN [address] [place] [address] Green Chain Operator Post Acute Care 05/21/22 Digester Capper Relationship Specialty Start Date End Date Terrell Evans 128 [facility] [address] [place] [address] PCP - General 04/17/22 Og Goodwin MD [address] [place] [address] Primary Staff Physician Family Practice 02/09/22 John Mullins MD [address] [place] [address] Referring Colon and Rectal Surgery 05/21/22 John Mullins MD [address] [place] [address] Home Care Physician Colon and Rectal Surgery 05/21/22 Ayo Sorenson, LOREN [address] [place], [place] [id number] Green Chain Operator Post Acute Care 05/21/22 Digester Capper Relationship Specialty Start Date End Date Terrell Evans DO [address] [facility] 105 [place] [address] PCP - General Family Practice 05/30/22 Og Goodwin MD 128 [facility] [address] Primary Staff Physician [facility] 02/09/22 John Mullins MD [address] [place] [address] Referring Colon and Rectal Surgery 05/21/22 John Mullins MD [address] [place] [address] Home Care Physician Colon and Rectal Surgery 05/21/22 Ayo Sorenson RN [address] [place], [place] [address]27131 Green Chain Operator Post Acute Care 05/21/22 Digester Capper Relationship Specialty Start Date End Date Terrell Evans DO [address] [facility] [address] [place] [address] PCP - General Family Practice 05/30/22 Og Goodwin MD 128 [facility] [address] Primary Staff Physician Family Practice 02/09/22 John Mullins MD [address] [place] [address] Referring Colon and Rectal Surgery 05/21/22 John Mullins MD [address] [place] [address] Home Care Physician Colon and Rectal Surgery 05/21/22 Ayo Sorenson, LOREN [address] [place] [address] Green Chain Operator Post Acute Care 05/21/22 Digester Capper Relationship Specialty Start Date End Date Terrell Evans DO [address] [facility] [address] [place] [address] PCP - General Family Practice 05/30/22 Og Goodwin MD [address] [place] [address] Primary Staff Physician [facility] 02/09/22 John Mullins MD [address] [place] [address] Referring Colon and Rectal Surgery 05/21/22 John Mullins MD [address] [place] [address] Home Care Physician Colon and Rectal Surgery 05/21/22 Ayo Sorenson RN [address] [place] [address] Green Chain Operator Post Acute Care 05/21/22 Digester Capper Relationship Specialty Start Date End Date Terrell Evans DO [address] [facility] [address] [place] [address] PCP - General Family Practice 05/30/22 Og Goodwin MD [address] [facility] [address] Primary Staff Physician Family Practice 02/09/22 John Mullins MD [address] [place] [address] Referring Colon and Rectal Surgery 05/21/22 John Mullins MD [address] [place] [address] Home Care Physician Colon and Rectal Surgery 05/21/22 Ayo Sorenson, LOREN [address] [place] [address] Green Chain Operator Post Acute Care 05/21/22 Digester Capper Relationship Specialty Start Date End Date Terrell Evans DO [address] [facility] [address] [place] [address] PCP - General Family Practice 05/30/22 Og Goodwin MD [address] [place] [address] Primary Staff Physician [facility] 02/09/22 John Mullins MD [address] [place] [address] Referring Colon and Rectal Surgery 05/21/22 John Mullins MD [address] [place] [address] Home Care Physician Colon and Rectal Surgery 05/21/22 Ayo Sorenson RN [address] [place] [address] Green Chain Operator Post Acute Care 05/21/22 Digester Capper Relationship Specialty Start Date End Date Terrell Evans DO [address] [facility] [address] [place] [address] PCP - General Family Practice 05/30/22 Og Goodwin MD [address] [place] [address] Primary Staff Physician Family Practice 02/09/22 John Mullins MD [address] [place] [address] Referring Colon and Rectal Surgery 05/21/22 John Mullins MD [address] [place] [address] Home Care Physician Colon and Rectal Surgery 05/21/22 Ayo Sorenson RN [address] [place] [address] Green Chain Operator Post Acute Care 05/21/22 Digester Capper Relationship Specialty Start Date End Date Terrell Evans DO [address] [facility] [address] [place] [address] PCP - General Family Practice 05/30/22 Og Goodwin MD [address] [place] [address] Primary Staff Physician Family Practice 02/09/22 John Mullins MD [address] [place] [address] Referring Colon and Rectal Surgery 05/21/22 John Mullins MD [address] [place] [address] Home Care Provider Colon and Rectal Surgery 05/21/22 Ayo Sorenson RN [address] [place] [address] Green Chain Operator Post Acute Care 05/21/22 Digester Capper Relationship Specialty Start Date End Date Terrell Evans [address] [facility] [address] [place] [address] PCP - General Family Practice 05/30/22 Og Goodwin MD [address] [place] [address] Primary Staff Physician Family Practice 02/09/22 John Mullins MD [address] [place] [address] Referring Colon and Rectal Surgery 05/21/22 John Mullins MD [address] [place] [address] Home Care Provider Colon and Rectal Surgery 05/21/22 Ayo Sorenson RN [address] [place] [address] Green Chain Operator Post Acute Care 05/21/22 Digester Capper Relationship Specialty Start Date End Date Terrell Evans DO [address] [facility] [address] [place] [address] PCP - General Family Medicine 05/30/22 Og Goodwin MD [address] [place] [address] Primary Staff Physician Family Medicine 02/09/22 John Mullins MD [address] [place] [address] Referring Colon and Rectal Surgery 05/21/22 John Mullins MD [address] [place] [address] Home Care Provider Colon and Rectal Surgery 05/21/22 Ayo Sorenson RN [address] [place] [address] Green Chain Operator Post Acute Care 05/21/22 Digester Capper Relationship Specialty Start Date End Date Terrell Evans, [address] [facility] [address] [place] [address] PCP - General Family Medicine 05/30/22 Og Goodwin MD [address] [place] [address] Primary Staff Physician Family Medicine 02/09/22 John Mullins MD [address] [place] [address] Referring Colon and Rectal Surgery 05/21/22 John Mullins MD [address] [place] [address] Home Care Provider Colon and Rectal Surgery 05/21/22 Ayo Sorenson RN [address] [place] [address] Green Chain Operator Post Acute Care 05/21/22 Digester Capper Relationship Specialty Start Date End Date Terrell Evans DO [address] [facility] [address] [place] [address] PCP - General Family Medicine 05/30/22 Og Goodwin MD [address] [place] [address] Primary Staff Physician Family Medicine 02/09/22 John Mullins MD [address] [place] [address] Referring Colon and Rectal Surgery 05/21/22 John Mullins MD [address] [place] [address] Home Care Provider Colon and Rectal Surgery 05/21/22 Ayo Sorenson RN [address] [place] [address] Green Chain Operator Post Acute Care 05/21/22 Digester Capper Relationship Specialty Start Date End Date Terrell Evans DO [address] [facility] [address] [place] [address] PCP - General Family Medicine 05/30/22 Og Goodwin MD [address] [place] [address] Primary Staff Physician Family Medicine 02/09/22 John Mullins MD [address] [place] [address] Referring Colon and Rectal Surgery 05/21/22 John Mullins MD [address] [facility] [place] [address] Home Care Provider Colon and Rectal Surgery 05/21/22 Ayo Sorenson RN [address] [place] [address] Green Chain Operator Post Acute Care 05/21/22 Digester Capper Relationship Specialty Start Date End Date Terrell Evans DO [address] [facility] [address] [place] [address] PCP - General Family Medicine 05/30/22 Og Goodwin MD [address] [place] [address] Primary Staff Physician Family Medicine 02/09/22 John Mullins MD [address] [facility] [place] [address] Referring Colon and Rectal Surgery 05/21/22 John Mullins MD [address] [place] [place] [address] Home Care Provider Colon and Rectal Surgery 05/21/22 Ayo Sorenson RN [address] [place] [address] Green Chain Operator Post Acute Care 05/21/22 Digester Capper Relationship Specialty Start Date End Date Terrell Evans DO [address] [facility] [address] [place] [address] PCP - General Family Medicine 05/30/22 Og Goodwin MD [address] [place] [address] Primary Staff Physician Family Medicine 02/09/22 John Mullins MD [address] [place] [address] Referring Colon and Rectal Surgery 05/21/22 John Mullins MD [address] [place] [address] Home Care Provider Colon and Rectal Surgery 05/21/22 Ayo Sorenson RN [address] [place] [address] Green Chain Operator Post Acute Care 05/21/22 Digester Capper Relationship Specialty Start Date End Date Terrell Evans DO [address] [facility] [address] [place] [address] PCP - General Family Medicine 05/30/22 Og Goodwin MD [address] [place] [address] Primary Staff Physician Family Medicine 02/09/22 John Mullins MD [address] [place] [address] Referring Colon and Rectal Surgery 05/21/22 John Mullins MD [address] [place] [address] Home Care Provider Colon and Rectal Surgery 05/21/22 Ayo Sorenson RN [address] [place], [place] [address]64[address]31 Green Chain Operator Post Acute Care 05/21/22 Francisco Mesa V [address] [facility] [place] [address] Internal Medicine 08/27/22 Digester Capper Relationship Specialty Start Date End Date Terrell Evans DO [address] [facility] [address] [place] [address] PCP - General Family Medicine 05/30/22 Og Goodwin MD [address] [place] [address] Primary Staff Physician Family Medicine 02/09/22 John Mullins MD [address] [place] [address] Referring Colon and Rectal Surgery 05/21/22 John Mullins MD [address] [place] [address] Home Care Provider Colon and Rectal Surgery 05/21/22 Ayo Sorenson RN [address] [place] [address] Green Chain Operator Post Acute Care 05/21/22 Francisco Mesa V [address] [facility] [place] [address] Internal Medicine 08/27/22 Digester Capper Relationship Specialty Start Date End Date Terrell Evans DO [address] N[address]AY[address] [facility] [address] [place] [address] PCP - General Family Medicine 05/30/22 Og Goodwin MD [address] [place] [address] Primary Staff Physician Family Medicine 02/09/22 John Mullins MD [address] [place] [address] Referring Colon and Rectal Surgery 05/21/22 John Mullins MD [address] [place] [address] Home Care Provider Colon and Rectal Surgery 05/21/22 Ayo Sorenson, LOREN [address] [place] [address] Green Chain Operator Post Acute Care 05/21/22 Francisco Mesa V [address] [facility] [place] [phone] Internal Medicine 08/27/22 Digester Capper Relationship Specialty Start Date End Date Terrell Evans, [address] [facility] [address] [place] [address] PCP - General Family Medicine 05/30/22 Og Goodwin MD [address] [facility] [address] Primary Staff Physician Family Medicine 02/09/22 John Mullins MD [address] [place] [address] Referring Colon and Rectal Surgery 05/21/22 John Mullins MD [address] [place] [address] Home Care Provider Colon and Rectal Surgery 05/21/22 Ayo Sorenson RN [address] [place], [place] 5321231 Green Chain Operator Post Acute Care 05/21/22 Francisco Mesa V [address] E [facility] [place] [phone] Internal Medicine 08/27/22 Digester Capper Relationship Specialty Start Date End Date Terrell Evans, [address] [facility] [address] [place] [address] PCP - General Family Medicine 05/30/22 Og Goodwin MD [address] [place] [address] Primary Staff Physician Family Medicine 02/09/22 John Mullins MD [address] [place] [address] Referring Colon and Rectal Surgery 05/21/22 John Mullins MD [address] [place] [address] Home Care Provider Colon and Rectal Surgery 05/21/22 Ayo Sorenson RN [address] [place] [address] Green Chain Operator Post Acute Care 05/21/22 Francisco Mesa, Charis [address] [facility] [place] [address] Internal Medicine 08/27/22 Digester Capper Relationship Specialty Start Date End Date Terrell Evans DO [address] [facility] [address] [place] [address] PCP - General Family Medicine 05/30/22 Og Goodwin MD [address] [place] [address] Primary Staff Physician Family Medicine 02/09/22 John Mullins MD [address] [place] [address] Referring Colon and Rectal Surgery 05/21/22 John Mullins MD [address] [place] [address] Home Care Provider Colon and Rectal Surgery 05/21/22 Ayo Sorenson RN [address] [place], [place] [address]77231 Green Chain Operator Post Acute Care 05/21/22 Francisco Mesa V [address] [facility] [place] [phone] Internal Medicine 08/27/22 Digester Capper Relationship Specialty Start Date End Date Terrell Evans DO [address] [facility] DEREK [address] [place], [place] [address] PCP - General Family Medicine 05/30/22 Og Goodwin MD [address] [place] [address] Primary Staff Physician Family Medicine 02/09/22 John Mullins MD [address] [place] [address] Referring Colon and Rectal Surgery 05/21/22 John Mullins MD [address] [place] [address] Home Care Provider Colon and Rectal Surgery 05/21/22 Ayo Sorenson RN [address] [place], [place] 2545631 Green Chain Operator Post Acute Care 05/21/22 Francisco Mesa V [address] [facility] [place] [phone] Internal Medicine 08/27/22 Team Status: Active Member Role Status Dates Dr. Asia Peres MD Family Provider Active Terrell Evans DO Primary Care Provider Active Team Status: Inactive Member Role Status Dates Terrell Evans DO Primary Care Provider Active Dr. Francisco Mesa MD Attending Provider, [facility] Provider Active Team Status: Inactive Member Role Status Dates Terrell Evans DO Primary Care Provi thomas, Attending Provider, Referring Provider Active Digester Capper Relationship Specialty Start Date End Date Terrell Evans DO [address] [facility] [address] [place] [address] PCP - General Family Medicine 05/30/22 Og Goodwin MD [address] [place] [address] Primary Staff Physician Family Medicine 02/09/22 John Mullins MD [address] [place] [address] Referring Colon and Rectal Surgery 05/21/22 John Mullins MD [address] [place] [address] Home Care Provider Colon and Rectal Surgery 05/21/22 Ayo Sorenson, LOREN [address] [place] [address] Green Chain Operator Post Acute Care 05/21/22 Francisco Mesa V [address] [place] [address] Internal Medicine 08/27/22 Digester Capper Relationship Specialty Start Date End Date Terrell Evans DO [address] [facility] [address] [place] [address] PCP - General Family Medicine 05/30/22 Og Goodwin MD [address] [place] [address] Primary Staff Physician Family Medicine 02/09/22 John Mullins MD [address] [place] [address] Referring Colon and Rectal Surgery 05/21/22 John Mullins MD [address] [place] [address] Home Care Provider Colon and Rectal Surgery 05/21/22 Ayo Sorenson RN [address] [place], [place] 6428831 Green Chain Operator Post Acute Care 05/21/22 Francisco Mesa V [address] [facility] [place] [phone] Internal Medicine 08/27/22 Digester Capper Relationship Specialty Start Date End Date Terrell Evans DO [address] [facility] [address] [place], [place] [id number] PCP - General Family Medicine 05/30/22 Og Goodwin MD [address] [facility] [place], [place] [id number] Primary Staff Physician Family Medicine 02/09/22 John Mullins MD [address] [place] [address] Referring Colon and Rectal Surgery 05/21/22 John Mullins MD [address] [place] [address] Home Care Provider Colon and Rectal Surgery 05/21/22 Ayo Sorenson RN [address] [place], [place] 3034731 Green Chain Operator Post Acute Care 05/21/22 Francisco Mesa V [address] [phone] Internal Medicine 08/27/22 Digester Capper Relationship Specialty Start Date End Date eTrrell Evans DO [address] [place] [address] PCP - General Family Medicine 05/30/22 Og Goodwin MD [address] [place] [address] Primary Staff Physician Family Medicine 02/09/22 John Mullins MD [address] [place] [address] Referring Colon and Rectal Surgery 05/21/22 John Mullins MD [address] [place] [address] Home Care Provider Colon and Rectal Surgery 05/21/22 Ayo Sorenson RN [address] [place], [place] 7213831 Green Chain Operator Post Acute Care 05/21/22 Francisco Mesa V [address] [facility] [place] [address] Internal Medicine 08/27/22 Digester Capper Relationship Specialty Start Date End Date Terrell Evans DO 128 [facility] [address] [place] [address] PCP - General Family Medicine 05/30/22 Og Goodwin MD [address] [place], [place] 429691 Primary Staff Physician Family Medicine 02/09/22 John Mullins MD [address] [place] [address] Referring Colon and Rectal Surgery 05/21/22 John Mullins MD [address] [place] [address] Home Care Provider Colon and Rectal Surgery 05/21/22 Ayo Sorenson RN [address] [place], [place] 8472131 Green Chain Operator Post Acute Care 05/21/22 Francisco Mesa V [address] [facility] [place] [phone] Internal Medicine 08/27/22 Digester Capper Relationship Specialty Start Date End Date Terrell Evans DO [address] Al[facility] 105 [place], [place] [phone] PCP - General Family Medicine 05/30/22 Og Goodwin MD [address] [place], [place] [id number] Primary Staff Physician Family Medicine 02/09/22 John Mullins MD [address] [place] [address] Referring Colon and Rectal Surgery 05/21/22 John Mullins MD [address] [place] [address] Home Care Provider Colon and Rectal Surgery 05/21/22 Ayo Sorenson RN [address] [place], [place] 7474431 Green Chain Operator Post Acute Care 05/21/22 Francisco Mesa V [address] [facility] [place] [phone] Internal Medicine 08/27/22 Digester Capper Relationship Specialty Start Date End Date Terrell Evans DO [address]01 [facility], [place] [id number] PCP - General Family Medicine 05/30/22 Og Goodwin MD [address] [facility] [facility] [place], [place] [id number] Primary Staff Physician Family Medicine 02/09/22 John Mullins MD [address] [place] [address] Referring Colon and Rectal Surgery 05/21/22 John Mullins MD [address] [place] [address] Home Care Provider Colon and Rectal Surgery 05/21/22 Ayo Sorenson, LOREN [address] [place] [address] Green Chain Operator Post Acute Care 05/21/22 Francisco Mesa V [address] [facility] [place] [phone] Internal Medicine 08/27/22 Digester Capper Relationship Specialty Start Date End Date Terrell Evans DO [address] [place] [address] PCP - General Family Medicine 05/30/22 Og Goodwin MD [address] [facility] [place], [place] [address] Primary Staff Physician Family Medicine 02/09/22 John Mullins MD [address] [place] [address] Referring Colon and Rectal Surgery 05/21/22 John Mullins MD [address] [place], [place] 9770106 Home Care Provider Colon and Rectal Surgery 05/21/22 Ayo Sorenson RN [address] [place], [place] 523[address]31 Green Chain Operator Post Acute Care 05/21/22 Francisco Mesa V [address] [place] [phone] Internal Medicine 08/27/22 FOR RECORDS PERTAINING TO PATIENTS WHO ARE OR HAVE BEEN ENROLLED IN A CHEMICAL DEPENDENCY/SUBSTANCEABUSE PROGRAM, SOME INFORMATION MAY BE OMITTED. This clinical summary was aggregated from multiple sources. Caution should be exercised in using it in the provision of clinical care. This summary normalizes information from multiple sources, and as a consequence, information in this document may materially change the coding, format and clinical context of patient data. In addition, data may be omitted in some cases. CLINICAL DECISIONS SHOULD BE BASED ON THE PRIMARY CLINICAL RECORDS. [employer] provides no warranty or guarantee of the accuracy or completeness of information in this document.
--- NOTE | 2025-09-05 12:10 | CM.ED ---
Social Work Date of referral: 09/05/25 Reason for referral: Advanced Care Directives (ACD's) not on file. Referred by: Social Work Identification Upon medical record review, social security benefits interviewer confirmed that ACD's have already been scanned into patient's electronic medical records. No additional follow up is needed at this time. Dulce Desai, PAN WASHER, DENTAL SALES REPRESENTATIVE
--- NOTE | 2025-09-05 12:59 | PCM.HP.STD ---
HPI - General General Date of Admission: 09/05/25 Date of Service: 09/05/25 Chief Complaint: back pain HPI Narrative RADHA JOHNSON, is a 80 M with a PMH as outlined who presents via the ED on 09/05/2025 with a complaint of back pain. HE sustained a mechanical fall 4 days ago and said he did not hit his head or pass out. He was able to get up after hte fall without difficulty and subsequently started having severe back pain. He denied any numbness or tingling, any urinary or fecal incontinence or any other symptoms. Review of systems is otherwise negative. He was unable to bear the pain and could not ambulate well. So he decided to come in to the ED. Vitals in the ED were BP of 180/66, NH of 63, RR of 13 and oxygen sats of 100% on room air. CBC showed hb of 13.1, wbc of 6.4 and platelets of 144. Chemistry showed sodium of 143, potassium of 3.7 and bicarb of 28. Cr is 1.14. Lumbar xray showed no acute osseous abnormalities. CXR showed bibasilar strand like opacities, likely atelectasis/scarring, with acute infection not excluded. He is being admitted to be managed for debility and weakness due to intractable back pain after mechanical fall. [facility] Medical History Wears hearing aid in both ears Kidney stones Abdominopelvic abscess Wound infection after surgery HISTORY FISTULA REPAIRED Hypertension Atherosclerosis of coronary artery of [place] heart without angina pectoris History of multiple strokes Essential hypertension Smoking greater than 30 pack years Fistula Paroxysmal atrial fibrillation Cellulitis of right abdominal wall History of bladder cancer Hyperlipemia History of stroke Hearing loss Home Medications ?Medication ?Instructions ?Recorded ?Last Taken ?Type multivitamin 1 tab PO DAILY GENERAL HEALTH 03/17/19 09/05/25 History atorvastatin 20 mg tablet 20 mg PO DAILY HIGH CHOLESTROL #90 04/29/19 09/04/25 Rx tabs metoprolol succinate 25 mg 25 mg PO DAILY #30 tabs 02/20/21 09/05/25 Rx tablet,extended release 24 hr ferrous sulfate 13 mg PO DAILY 09/05/25 09/05/25 History lisinopril 10 mg tablet 10 mg PO DAILY 09/05/25 09/05/25 History naproxen sodium 220 mg tablet 440 mg PO DAILY PRN pain 09/05/25 09/05/25 History (Aleve) warfarin 5 mg tablet 5 mg PO SUMOTUTHFRSA 09/05/25 09/05/25 History Allergy/AdvReac Type Severity Reaction Status Date / Time azithromycin (From Zithromax) Allergy Severe Hives Verified 09/05/25 09:23 meloxicam (From Mobic) Allergy PT UNSURE Verified 09/05/25 09:23 OF REACTION Family History Brother Heart disease Father Cancer Heart disease Mother Heart disease Family History no significant family his Surgical History Status post exploratory laparotomy History of urostomy Status post colostomy Status post colostomy History of bilateral hip replacements History of shoulder surgery Surgical History unable to obtain Social History Smoking Status: Former smoker alcohol intake: never substance use type: does not use what type of physical activity do you participate in: none ROS Constitutional Constitutional: Reports weakness; Denies anorexia, chills, fatigue, fever(s) or malaise Eyes Eyes: Denies change in vision ENT HEENT: Denies dysphagia, headache(s) or sore throat Cardiovascular Cardiovascular: Denies chest pain, dyspnea on exertion, edema, lightheadedness, orthopnea, palpitations, paroxysmal nocturnal dyspnea, rapid heart rate or syncope Respiratory/Chest Respiratory/Chest: Denies cough, dyspnea, shortness of breath at rest or shortness of breath with exertion Gastrointestinal Gastrointestinal: Denies abdominal pain, nausea or vomiting Genitourinary Genitourinary: Denies dysuria Musculoskeletal Musculoskeletal: Reports back pain and myalgias; Denies arthralgias, joint pain, joint stiffness, joint swelling or neck pain Neurologic Neurologic: Denies confusion, disequilibrium, dizziness, focal weakness, headache(s), numbness, paresthesias, seizures or syncope Psychiatric Psychiatric: Reports anxiety Vital Signs Vital Signs Vital Signs: 09/05/25 09:19 09/05/25 09:56 09/05/25 11:40 Temperature 98.3 F Temperature Source Axillary Pulse Rate 56 L 63 Respiratory Rate 18 13 Respiratory Effort Normal Respiratory Pattern Normal Blood Pressure 178/73 H 180/66 H Blood Pressure Mean 108 104 Pulse Ox 100 100 Oxygen Delivery Method Room Air Room Air Weight Weight: 169 lb Body Mass Index (BMI) 25.7 Physical Exam Const alert, oriented x3 and no apparent distress General Appearance: cooperative HEENT normocephalic, head/scalp atraumatic, hearing grossly normal bilaterally, moist oral mucous membranes and oropharynx normal Mouth: oral and palatal mucosa normal Eyes EOMs intact bilaterally and conjunctivae normal Neck supple and no JVD Resp normal respiratory effort, no use of accessory muscles and clear to auscultation bilaterally Cardio regular rate, regular rhythm, S1 normal heart sound, S2 normal heart sound and no murmurs GI normal to inspection, nondistended, normoactive bowel sounds, soft to palpation, non-tender and non-distended Extremity normal to inspection, full ROM and no clubbing, cyanosis or edema Neuro CN's II-XII intact bilaterally and moves all extremities Sensorium / Orientation: awake and alert Motor Exam: strength 5/5 throughout Results Lab / Micro Data 09/05/25 09:45 09/05/25 09:45 Labs: Laboratory Results - last 24 hr 09/05/25 09:45: WBC 6.4, RBC 4.28 L, Hgb 13.1, Hct 38.6 L, MCV 90.2, MCH 30.6, MCHC 33.9, RDW Std Deviation 47.1 H, RDW Coeff of Carie 14.4, Plt Count 144 L, MPV 10.5, Immature Gran % (Auto) 0.300, Neut % (Auto) 61.5, Lymph % (Auto) 25.1, Rolette % (Auto) 8.2, Eos % (Auto) 4.6, Baso % (Auto) 0.3, Absolute Neuts (auto) 3.9, Absolute Lymphs (auto) 1.60, Nucleated RBC % 0, Sodium 143, Potassium 3.7, Chloride 106, Carbon Dioxide 28.0, Anion Gap 10, BUN 13, Creatinine 1.14, Estim Creat Clear Calc 51.67, Est GFR (MDRD) Non-Af 66, BUN/Creatinine Ratio 11.1, Glucose 71, Calcium 9.3 Imaging Radiology Impression Chest X-Ray 09/05/25 09:27 IMPRESSION: Bibasilar strand-like opacities, likely atelectasis/scarring. Acute infection is not excluded. Reading Location: [facility] Lumbar Spine X-Ray 09/05/25 09:27 IMPRESSION: No acute osseous abnormalities. Reading Location: [id number] Assessment & Plan Assessment/Plan (1) Fall from slipping on wet surface: (2) Intractable low back pain: PLAN: Plan #Intractable lower back pain due to mechanical fall admitted with a complaint of mechanical fall after which he started having severe back pain. X-ray of the lumbar spine shows no evidence of any fracture. CT of the lumbar spine ordered. PT OT consult. Fall precautions. P.o. Tylenol, p.o. oxycodone and IV morphine as needed for pain #History of A-fib: On metoprolol. On coumadin #Hyperlipidemia: On statin #Hypertension: On lisinopril and metoprolol DVT prophylaxis: Not indicated as patient on Coumadin. INR today is pending Code status: Charges/Coding Visit Charges Inpatient E&M: 37709 Init Hosp L2 Procedures Hospitalists Procedures: 16262 Advncd Care Plan 30 Min
--- NOTE | 2025-09-05 13:05 | CT_ITS ---
PROCEDURE: SPINE LUMBAR WITHOUT CONTRAST 09/05/2025 REASON FOR EXAM: PAIN, INJURY, NML XR TECHNIQUE: Procedure Code: CTSPL Modality: CT Procedure: SPINE LUMBAR WITHOUT CONTRAST Coronal and Sagittal reconstruction series were provided. One or more dose reduction techniques were used (e.g., Automated exposure control, adjustment of the mA and/or kV according to patient size, use of iterative reconstruction technique COMPARISON: None. RADIATION DOSE SUMMARY: CTDlvol: 26.25 mGy DLP: 821.62 mGycm FINDINGS: Vertebrae: No acute bony abnormalities. Alignment: Unremarkable. L1-2: Unremarkable. L2-3: Disc bulge. Mild inferior bilateral foramina stenosis. No significant canal stenosis. L3-4: Disc bulge. Facet joints arthropathy. Mild inferior bilateral foramina stenosis. Mild canal stenosis. L4-5: Disc bulge. Facet joints arthropathy. Ligamentum flavum hypertrophy. Mild inferior bilateral foramina stenosis. Moderate canal stenosis. L5-S1: Disc bulge. Facet arthropathy. No significant foraminal or canal stenosis. Sacrum: No acute bony abnormalities.
[2025-09-05 13:33] LABS: Prothrombin Time (Protime)PT. 23.0 SECONDS (11.7-14.9)
--- OUTSIDE RECORDS SUMMARY | 2025-09-05 13:38 | XMS RPT_ITS | CCD ---
Author Organization [facility] Care Team Providers Care [place] Supervisor Name Role Phone EH, BUCK J Unavailable [...] PA-C, Arlene Unavailable Og Goodwin MD Unavailable [phone] Ayo Sorenson RN Unavailable Terrell Evans Primary Care Provider Merly PA-C, Arlene Unavailable Merly PA-C, Arlene Unavailable [phone] Og Goodwin MD Unavailable Ayo Sorenson RN Unavailable Dr. Nataliya Avila Emergency Provider DO Terrell Evans Primary Care Provider [phone] Dr. Rich Corrigan Admit Provider Dr. Rich [...] [phone] Dr. Nataliya Avila Emergency Provider DO Terrell [...] Terrell Evans DO Primary Care Provider [phone] Terrell Evans DO Primary Care Provider JOCELINAU, [...] Azithromycin; Translations: [AZITHROMYCIN] Drug Allergy 04-07-2019 Unknown [facility] (20 sources) meloxicam; Translations: [MELOXICAM] Drug Allergy 04-07-2019 Unknown [facility] (1 source) Azithromycin Drug Allergy 08-17-2022 [facility] (1 source) meloxicam Drug Allergy 08-17-2022 [facility] Medications Current Medications Medication Drug [...] Comment on above: Take 1 capsule by [facility] every 12 hours for 14 days. amoxicillin [...] Comment on above: [facility] 7 [facility]. doxycycline hyclate 100 mg oral capsule (4 sources) Tetracycline-class Drug Start: 05-21-2022 End: 06-15-2022 doxycycline hyclate (VIBRAMYCIN) 100 mg capsule [The details of the medication are not available because there are pending changes by a home health clinician.] 20 capsule 0 05/21/2022 06/15/2022 Discontinued (Course of therapy completed) Comment on above: Take 1 capsule by [facility] every 12 hours 6am/6pm for 10 days. [...] March 17, 2019 12:00am polyethylene glycol 3350 21164 mg powder for oral solution (9 sources) [...] Coronary atherosclerosis; Translations: [Atherosclerotic heart disease of [place] coronary artery without angina pectoris] 08-03-2019 Chronic [...] Other aftercare (9 sources) Anticoagulant effect; Translations: [[employer] (current) use of anticoagulants] 10-31-2019 Episodic Other [...] sources) Long-term current use of anticoagulant; Translations: [[employer] (current) use of anticoagulants] Onset: 07-20-2019 07-21-2019 [...] DATE OF EXAM: Oct 15 2024 11:35AM [facility] 0541 - CT CHEST WO IVCON / [...] of recurrent or metastatic disease is identified. Operations Specialist: MARLO Transcribe Date/Time: Oct 15 2024 1:50P Dictated by : NEWTNO MERCADO MD This examination was interpreted and the report reviewed and electronically signed by: NEWTON MERCADO MD on Oct 15 2024 2:12PM EST [id number] Normal [facility] CT Chest WO contraston 10-15 IMPRESSION: Little change in CT appearance of the chest since 04/13/2024. No evidence of recurrent or metastatic disease is identified. Operations Specialist: [facility] Transcribe Date/Time: Oct 15 2024 1:50P Dictated by : NEWTON MERCADO MD This examination was interpreted and the report reviewed and electronically signed by: NEWTON MERCADO MD on Oct 15 2024 2:12PM EST DIVISION OF RADIOLOGY * * *Final Report* * * DATE OF EXAM: Oct 15 2024 11:35AM [facility] 0541 - CT CHEST WO IVCON / [...] No additional findings. DIVISION OF RADIOLOGY Provider, [facility] - 10/15/2024 * * *Final Report* * * DATE OF EXAM: Oct 15 2024 11:35AM [facility] 0541 - CT CHEST WO IVCON / [...] of recurrent or metastatic disease is identified. Operations Specialist: [facility] Transcribe Date/Time: Oct 15 2024 1:50P Dictated by : NEWTON MERCADO MD This examination was interpreted and the report reviewed and electronically signed by: NEWTON MERCADO MD on Oct 15 2024 2:12PM EST [facility] Radiology Study observation (narrative) [facility] CT Chest WO contrastOrdered By: Ccf Provider on 10-15-2024 [facility] CBC W/Diff, Automatedon 09-2 0-2024 Absolute Lymph 1.88 X10 3/uL Normal 0.83-4.51 [facility] Comment on above: Order Comment: Order Date: 06/18/24 Order Info: 0184-1 - CBCD Performed By: #### L 501.9985, L501.9520, L500.4100, L500.4050, L100.0100 #### [facility] [address] [place], [address] Absolute Neut 3.5 X10 3/uL Normal 2.0-7.7 [facility] Comment on above: Order Comment: Order Date: 06/18/24 Order Info: 0184- - CBCD Performed By: #### L 501.9985, L501.9520, L500.4100, L500.4050, L100.0100 #### [facility] [address] [place], [address] Basophils/100 WBC (Bld) 0.8 % Normal 0-1 [facility] Comment on above: Order Comment: Order Date: 06/18/24 Order Info: 0184- - CBCD Performed By: #### L 501.9985, L501.9520, L500.4100, L500.4050, L100.0100 #### [facility] [address] [place], [address] Eosinophils/100 WBC (Bld) 5.8 % High 0-5 [facility] Comment on above: Order Comment: Order Date: 06/18/24 Order Info: 0184-1 - CBCD Performed By: #### L 501.9985, L501.9520, L500.4100, L500.4050, L100.0100 #### [facility] [address] [place], [address] Erythrocyte distribution width (RBC) [Ratio] 13.8 % Normal 11.6-14.6 [facility] Comment on above: Order Comment: Order Date: 06/18/24 Order Info: 0184-1 - CBCD Performed By: #### L 501.9985, L501.9520, L500.4100, L500.4050, L100.0100 #### [facility] [address] [place], [address] Hematocrit (Bld) [Volume fraction] 38.9 % Low 40-54 [facility] Comment on above: Order Comment: Order Date: 06/18/24 Order Info: 0184-1 - CBCD Performed By: #### L 501.9985, L501.9520, L500.4100, L500.4050, L100.0100 #### [facility] [address] [place], [address] Hemoglobin (Bld) [Mass/Vol] 12.4 g/dL Low 13.0-16.5 [facility] Comment on above: Order Comment: Order Date: 06/18/24 Order Info: 0184-1 - CBCD Performed By: #### L 501.9985, L501.9520, L500.4100, L500.4050, L100.0100 #### [facility] [address] [place], [address] IG% 0.600 Normal 0.0-0.9 [facility] Comment on above: Order Comment: Order Date: 06/18/24 Order Info: 0184-1 - CBCD Result Comment: IG% - Immature Granulocytes (promyelocytes, myelocytes and metamyelocytes) > 1% indicates that a LEFT SHIFT is Present. Performed By: #### L 501.9985, L501.9520, L500.4100, L500.4050, L100.0100 #### [facility] [address] [place], [address] Lymphocytes/100 WBC (Bld) 28.7 % Normal 19-41 [facility] Comment on above: Order Comment: Order Date: 06/18/24 Order Info: 0184-1 - CBCD Performed By: #### L 501.9985, L501.9520, L500.4100, L500.4050, L100.0100 #### [facility] [address] [place], [address] MCH (RBC) [Entitic mass] 29.2 pg Normal 27.0-32.0 [facility] Comment on above: Order Comment: Order Date: 06/18/24 Order Info: 018- - CBCD Performed By: #### L 501.9985, L501.9520, L500.4100, L500.4050, L100.0100 #### [facility] [address] [place], [address] MCHC (RBC) [Mass/Vol] 31.9 g/dL Low 32-36 [facility] Comment on above: Order Comment: Order Date: 06/18/24 Order Info: 018- - CBCD Performed By: #### L 501.9985, L501.9520, L500.4100, L500.4050, L100.0100 #### [facility] [address] [place], [address] MCV (RBC) [Entitic vol] 91.5 fL Normal 80-94 [facility] Comment on above: Order Comment: Order Date: 06/18/24 Order Info: 018- - CBCD Performed By: #### L 501.9985, L501.9520, L500.4100, L500.4050, L100.0100 #### [facility] [address] [place], [address] Monocytes/100 WBC (Bld) 10.2 % High 0-10 [facility] Comment on above: Order Comment: Order Date: 06/18/24 Order Info: 018- - CBCD Performed By: #### L 501.9985, L501.9520, L500.4100, L500.4050, L100.0100 #### [facility] [address] [place], [address] Neutrophils/100 WBC (Bld) 53.9 % Normal 47-70 [facility] Comment on above: Order Comment: Order Date: 06/18/24 Order Info: 0184-1 - CBCD Performed By: #### L 501.9985, L501.9520, L500.4100, L500.4050, L100.0100 #### [facility] [address] [place], [address] Nucleated RBC (Bld) [#/Vol] 0 10*3/uL Normal 0-5 [facility] Comment on above: Order Comment: Order Date: 06/18/24 Order Info: 0184-1 - CBCD Performed By: #### L 501.9985, L501.9520, L500.4100, L500.4050, L100.0100 #### [facility] [address] [place], [address] Platelet mean volume (Bld) [Entitic vol] 11.2 fL Normal 6.2-12.0 [facility] Comment on above: Order Comment: Order Date: 06/18/24 Order Info: 0184-1 - CBCD Performed By: #### L 501.9985, L501.9520, L500.4100, L500.4050, L100.0100 #### [facility] [address] [place], [address] Platelets (Bld) [#/Vol] 164 10*3/uL Normal 150-450 [facility] Comment on above: Order Comment: Order Date: 06/18/24 Order Info: 0184-1 - CBCD Performed By: #### L 501.9985, L501.9520, L500.4100, L500.4050, L100.0100 #### [facility] [address] [place], [address] RBC (Bld) [#/Vol] 4.25 10*6/uL Low 4.6-6.2 [facility] Comment on above: Order Comment: Order Date: 06/18/24 Order Info: 0184-1 - CBCD Performed By: #### L 501.9985, L501.9520, L500.4100, L500.4050, L100.0100 #### [facility] [address] [place], [address] RDW SD 46.0 fl High 35.1-43.9 [facility] Comment on above: Order Comment: Order Date: 06/18/24 Order Info: 0184-1 - CBCD Performed By: #### L 501.9985, L501.9520, L500.4100, L500.4050, L100.0100 #### [facility] [address] [place], [address] WBC (Bld) [#/Vol] 6.6 10*3/uL Normal 4.4-11.0 [facility] Comment on above: Order Comment: Order Date: 06/18/24 Order Info: 0184-1 - CBCD Performed By: #### L 501.9985, L501.9520, L500.4100, L500.4050, L100.0100 #### [facility] [address] [place], [address] Comprehensive Metabolic Prof nmon 06-19-2024 Albumin [Mass/Vol] 3.5 g/dL Normal 3.2-5.0 [facility] Comment on above: Order Comment: Order Date: 06/18/24 Order Info: 0786-1 - CMP Order Info: [id number] - LIPID Order Info: 3016-3 - TSH Performed By: #### L 501.9985, L501.9520, L500.4100, L500.4050, L100.0100 #### [facility] [address] [place], [address] Albumin/Globulin [Mass ratio] 1.1 {ratio} Normal 0.9-2.4 [facility] Comment on above: Order Comment: Order Date: 06/18/24 Order Info: 0786- - CMP Order Info: [id number] - LIPID Order Info: 3013 - TSH Performed By: #### L 501.9985, L501.9520, L500.4100, L500.4050, L100.0100 #### [facility] [address] [place], [address] ALK P 57 U/L Normal 45-117 [facility] Comment on above: Order Comment: Order Date: 06/18/24 Order Info: 0786 - CMP Order Info: [id number] - LIPID Order Info: 3015-11 - TSH Performed By: #### L 501.9985, L501.9520, L500.4100, L500.4050, L100.0100 #### [facility] [address] [place], [address] ALT [Catalytic activity/Vol] 16 U/L Normal 16-61 [facility] Comment on above: Order Comment: Order Date: 06/18/24 Order Info: 0786 - CMP Order Info: [id number] - LIPID Order Info: [id number] - TSH Performed By: #### L 501.9985, L501.9520, L500.4100, L500.4050, L100.0100 #### [facility] [address] [place], [address] AST [Catalytic activity/Vol] 20 U/L Normal 15-37 [facility] Comment on above: Order Comment: Order Date: 06/18/24 Order Info: 0786-1 - CMP Order Info: [id number] - LIPID Order Info: [id number] - TSH Performed By: #### L 501.9985, L501.9520, L500.4100, L500.4050, L100.0100 #### [facility] [address] [place], [address] Bilirubin [Mass/Vol] 0.70 mg/dL Normal 0.20-1.00 [facility] Comment on above: Order Comment: Order Date: 06/18/24 Order Info: 0786- - CMP Order Info: - LIPID Order Info: [id number] - TSH Result Comment: For patients on eltrombopag therapy, use of Dimension [place] TBIL is not recommended. Performed By: #### L 501.9985, L501.9520, L500.4100, L500.4050, L100.0100 #### [facility] [address] [place], [address] BUN/CRE 13.5 RATIO Normal 10-20 [facility] Comment on above: Order Comment: Order Date: 06/18/24 Order Info: 07 - CMP Order Info: [id number] - LIPID Order Info: 3015-11 - TSH Performed By: #### L 501.9985, L501.9520, L500.4100, L500.4050, L100.0100 #### [facility] [address] [place], [address] CA,Total 9.1 mg/dL Normal 8.5-10.1 [facility] Comment on above: Order Comment: Order Date: 06/18/24 Order Info: 0786- - CMP Order Info: - LIPID Order Info: [id number] - TSH Performed By: #### L 501.9985, L501.9520, L500.4100, L500.4050, L100.0100 #### [facility] [address] [place], [address] Chloride [Moles/Vol] 109 mmol/L High 98-107 [facility] Comment on above: Order Comment: Order Date: 06/18/24 Order Info: 0786- - CMP Order Info: [id number] - LIPID Order Info: [id number] - TSH Performed By: #### L 501.9985, L501.9520, L500.4100, L500.4050, L100.0100 #### [facility] [address] [place], [address] CO2 [Moles/Vol] 22.0 mmol/L Normal 21.0-32.0 [facility] Comment on above: Order Comment: Order Date: 06/18/24 Order Info: 0786-1 - CMP Order Info: [id number] - LIPID Order Info: 3016-3 - TSH Performed By: #### L 501.9985, L501.9520, L500.4100, L500.4050, L100.0100 #### [facility] [address] [place], [address] Creatinine [Mass/Vol] 1.11 mg/dL Normal 0.70-1.30 [facility] Comment on above: Order Comment: Order Date: 06/18/24 Order Info: [id number] - CMP Order Info: - LIPID Order Info: 3 - TSH Result Comment: The validity of the calculated GFR GFRAA in patients over 70 years has not been determined. Clinical correlation is essential. Performed By: #### L 501.9985, L501.9520, L500.4100, L500.4050, L100.0100 #### [facility] [address] [place], [address] EST GFR - AA 83 mL/min Normal >60 [facility] Comment on above: Order Comment: Order Date: 06/18/24 Order Info: 0786- - CMP Order Info: [id number] - LIPID Order Info: [id number] - TSH Result Comment: Afri can [place] GFR Calc Performed By: #### L 501.9985, L501.9520, L500.4100, L500.4050, L100.0100 #### [facility] [address] [place], [address] GAP 9 Normal 5-15 [facility] Comment on above: Order Comment: Order Date: 06/18/24 Order Info: 07- - CMP Order Info: [id number] - LIPID Order Info: [id number] - TSH Performed By: #### L 501.9985, L501.9520, L500.4100, L500.4050, L100.0100 #### [facility] [address] [place], [address] GFR/1.73 sq M.predicted among non-blacks MDRD (S/P/Bld) [Vol rate/Area] 68 mL/min/{1.73_m2} Normal >60 [facility] Comment on above: Order Comment: Order Date: 06/18/24 Order Info: 07 - CMP Order Info: - LIPID Order Info: [id number] - TSH Result Comment: Non- GFR Calc Performed By: #### L 501.9985, L501.9520, L500.4100, L500.4050, L100.0100 #### [facility] [address] [place], [address] Globulin (S) [Mass/Vol] 3.3 g/dL Normal 2.2-4.2 [facility] Comment on above: Order Comment: Order Date: 06/18/24 Order Info: 0786 - CMP Order Info: - LIPID Order Info: [id number] - TSH Performed By: #### L 501.9985, L501.9520, L500.4100, L500.4050, L100.0100 #### [facility] [address] [place], [address] Glucose [Mass/Vol] 83 mg/dL Normal 74-106 [facility] Comment on above: Order Comment: Order Date: 06/18/24 Order Info: 0786 - CMP Order Info: [id number] - LIPID Order Info: 3 - TSH Performed By: #### L 501.9985, L501.9520, L500.4100, L500.4050, L100.0100 #### [facility] [address] [place], [address] Potassium [Moles/Vol] 3.8 mmol/L Normal 3.5-5.1 [facility] Comment on above: Order Comment: Order Date: 06/18/24 Order Info: 0786- - CMP Order Info: [id number] - LIPID Order Info: 3015-11 - TSH Performed By: #### L 501.9985, L501.9520, L500.4100, L500.4050, L100.0100 #### [facility] [address] [place], [address] Sodium [Moles/Vol] 140 mmol/L Normal 136-145 [facility] Comment on above: Order Comment: Order Date: 06/18/24 Order Info: 07 - CMP Order Info: [id number] - LIPID Order Info: [id number] - TSH Performed By: #### L 501.9985, L501.9520, L500.4100, L500.4050, L100.0100 #### [facility] [address] [place], [address] T PROT 6.8 g/dL Normal 6.4-8.2 [facility] Comment on above: Order Comment: Order Date: 06/18/24 Order Info: 0786- - CMP Order Info: [id number] - LIPID Order Info: [id number] - TSH Performed By: #### L 501.9985, L501.9520, L500.4100, L500.4050, L100.0100 #### [facility] [address] [place], [address] Urea nitrogen [Mass/Vol] 15 mg/dL Normal 7-18 [facility] Comment on above: Order Comment: Order Date: 06/18/24 Order Info: 0786- - CMP Order Info: [id number] - LIPID Order Info: [id number] - TSH Performed By: #### L 501.9985, L501.9520, L500.4100, L500.4050, L100.0100 #### [facility] [address] [place], [address] Hemoglobin A1con 06-19-2024 HbA1c (Bld) [Mass fraction] 5.0 % Normal 3.8-5.6 [facility] Comment on above: Order Comment: Order Date: 06/18/24 Order Info: [id number] - A1C Result Comment: Norm al < 5.7 % Prediabetic 5.7 - 6.4 % Diabetic >or= 6.5 % Please note range changes. Performed By: #### L 501.9985, L501.9520, L500.4100, L500.4050, L100.0100 #### [facility] [address] [place], [address] Lipid Profileon 06-19-2024 Cholesterol [Mass/Vol] 83 mg/dL Normal 200 [facility] Comment on above: Order Comment: Order Date: 06/18/24 Order Info: 0786-1 - CMP Order Info: [id number] - LIPID Order Info: 3016-3 - TSH Result Comment: <200 mg/dL Desirable 200-240 mg/dL Borderline >240 mg/dL High Risk Performed By: #### L 501.9985, L501.9520, L500.4100, L500.4050, L100.0100 #### [facility] [address] [place], [address] Cholesterol in HDL [Mass/Vol] 34 mg/dL Low [facility] Comment on above: Order Comment: Order Date: 06/18/24 Order Info: 0786-1 - CMP Order Info: [id number] - LIPID Order Info: [id number] - TSH Result Comment: The drugs N-Acetylcysteine and Metamizole may falsely depress this assay. Reference Range HDL <40 mg/dL Low HDL Cholesterol HDL >or= 60 mg/dL High HDL Cholesterol Performed By: #### L 501.9985, L501.9520, L500.4100, L500.4050, L100.0100 #### [facility] [address] [place], [address] Cholesterol in LDL [Mass/Vol] 32 mg/dL Normal 0-130 [facility] Comment on above: Order Comment: Order Date: 06/18/24 Order Info: 0786-1 - CMP Order Info: [id number] - LIPID Order Info: [id number] - TSH Performed By: #### L 501.9985, L501.9520, L500.4100, L500.4050, L100.0100 #### [facility] [address] [place], [address] Cholesterol in VLDL [Mass/Vol] 17 mg/dL Normal 5-40 [facility] Comment on above: Order Comment: Order Date: 06/18/24 Order Info: 0786-1 - CMP Order Info: [id number] - LIPID Order Info: [id number] - TSH Performed By: #### L 501.9985, L501.9520, L500.4100, L500.4050, L100.0100 #### [facility] [address] [place], [address] Triglyceride [Mass/Vol] 85 mg/dL Normal [facility] Comment on above: Order Comment: Order Date: 06/18/24 Order Info: 0786-1 - CMP Order Info: [id number] - LIPID Order Info: [id number] - TSH Result Comment: The drugs N-Acetylcysteine and Metamizole may falsely depress this assay. Serum Triglycerides Reference Interval Normal <150 mg/dL Borderline high 150 - 199 mg/dL High 200 - 499 mg/dL Very High > or = 500 mg/dL Performed By: #### L 501.9985, L501.9520, L500.4100, L500.4050, L100.0100 #### [facility] [address] [place], [address] Thyroid Stim Hormone (TSH)on 06-19-2024 TSH 1.830 uIU/mL Normal 0.358-3.740 [facility] Comment on above: Order Comment: Order Date: 06/18/24 Order Info: 0786-1 - CMP Order Info: [id number] - LIPID Order Info: [id number] - TSH Performed By: #### L 501.9985, L501.9520, L500.4100, L500.4050, L100.0100 #### [facility] [address] [place], [address] CT CHEST WO IVCONon 04-13-20 CT CHEST WO IVCON * * *Final Report* * * DATE OF EXAM: Apr 13 2024 11:42AM [facility] 0541 - CT CHEST WO IVCON / [...] or enlarging lung nodules or thoracic lymphadenopathy. Operations Specialist: [employer] Transcribe Date/Time: Apr 13 2024 4:47P Dictated by : MONSE KING MD This examination was interpreted and the report reviewed and electronically signed by: MONSE KING MD on Apr 13 2024 4:55PM EST [id number] Normal [facility] CT Chest WO contraston 04-13 IMPRESSION: Stable postsurgical changes of left lower lobe wedge resection without evidence of recurrent neoplasm. No new or enlarging lung nodules or thoracic lymphadenopathy. Operations Specialist: [employer] Transcribe Date/Time: Apr 13 2024 4:47P Dictated by : MONSE KING MD This examination was interpreted and the report reviewed and electronically signed by: MONSE KING MD on Apr 13 2024 4:55PM EST DIVISION OF RADIOLOGY * * *Final Report* * * DATE OF EXAM: Apr 13 2024 11:42AM [facility] 0541 - CT CHEST WO IVCON / [...] No additional findings. DIVISION OF RADIOLOGY Provider, [facility] - 04/13/2024 * * *Final Report* * * DATE OF EXAM: Apr 13 2024 11:42AM [facility] 0541 - CT CHEST WO IVCON / [...] or enlarging lung nodules or thoracic lymphadenopathy. Operations Specialist: [facility] Transcribe Date/Time: Apr 13 2024 4:47P Dictated by : MONSE KING MD This examination was interpreted and the report reviewed and electronically signed by: MONSE KING MD on Apr 13 2024 4:55PM EST [facility] Radiology Study observation (narrative) [facility] CT Chest WO contrastOrdered By: Ccf Provider on 04-13-2024 [facility] CT CHEST WO IVCONon 03-07-20 [facility] XR CHEST 2V FRONTAL/LATon [facility] Culture, urineOrdered By: Rahul Evans on 11-12-2022 Bacteria identified Cx Nom (U) Proteus mirabilis [facility] Culture, urineOrdered By: Rahul Evans on 10-28-2022 Bacteria identified Cx Nom (U) Citrobacter freundii [facility] XR CHEST 2V FRONTAL/LATon [facility] CT CHEST W IVCONon 3 [facility] NM CARDIAC PERF STRESS/EXERC ISEon 10-11-2022 [facility] SPIROMETRY BASELINE ONLYon 1 11-01-2021 DLCO (ml/min/mmHg) 17.51 ml/min/mmHg [facility] DLCO/VA (ml/min/mmHg/L) 2.79 ml/min/mmHg/L [facility] IQZ46-98% PRE (L/S) 0.99 L/S [facility] FEV1 PRE (L) 2.34 L [facility] FEV1/FVC PRE (%) 52 % [facility] FVC PRE (L) 4.50 L [facility] PEF PRE (L/S) 6.02 L/S [facility] VA (L) 6.27 L [facility] LUNG DIFFUSION CAPACITY (SERENA O)on 08-30-2022 [facility] INR in Blood by Coagulation assayOrdered By: Dr. Mesa on 08-17-2022 INR Coag (Bld) [Relative time] 1.0 {INR} [facility] - CoagulationOrde red By: Dr. Mesa on 08-17-2022 aPTT Coag (Bld) [Time] 26.8 s 24.1-36.2 [facility] PT Coag (PPP) [Time] 13.0 s 11.7-14.9 [facility] Platelets bldOrdered By: Dr. Mesa on 08-17-2022 Platelets (Bld) [#/Vol] 165 10*3/uL 150-450 [facility] BRONCHOSCOPYon 06-27-2022 [facility] INR (POC)on 06-27-2022 INR Coag (PPP) [Relative time] 1.1 {INR} 0.8 - 1.2 [facility] Internal Quality Check Acceptable [facility] Absolute lymphocyte counton 05-15-2022 Lymphocytes Auto (Unsp spec) [#/Vol] 1.22 10*3/uL 0.83-4.51 [facility] Work Phone: Basophil percentageon 2021 Basophils/100 WBC (Bld) 0.4 % 0-1 [facility] Work Phone: Eosinophils/100 WBC (Bld) 2.1 % 0-5 [facility] Work Phone: Neutrophils (Bld) [#/Vol] 3.5 10*3/uL 2.0-7.7 [facility] Work Phone: Neutrophils/100 WBC (Bld) 66.2 % 47-70 [facility] Work Phone: WBC (Bld) [#/Vol] 5.3 10*3/uL 4.4-11.0 [facility] Work Phone: Blood erythrocytes count (nu mber/volume)on 05-15-2022 RBC (Bld) [#/Vol] 3.71 10*6/uL 4.6-6.2 [facility] Work Phone: Blood hemoglobin measurement (mass/volume)on 05-15-2022 Hemoglobin (Bld) [Mass/Vol] 10.7 g/dL 13.0-16.5 [facility] Work Phone: Blood lymphocytes/100 leukoc yteson 05-15-2022 Lymphocytes/100 WBC (Bld) 23.1 % 19-41 [facility] Work Phone: Blood monocytes/100 leukocyt eson 05-15-2022 Monocytes/100 WBC (Bld) 7.8 % 0-10 [facility] Work Phone: Blood platelet mean volumeon 05-15-2022 Platelet mean volume (Bld) [Entitic vol] 9.9 fL 6.2-12.0 [facility] Work Phone: Determination of erythrocyte mean corpuscular volume (MCV)on 05-15-2022 MCV (RBC) [Entitic vol] 87.9 fL 80-94 [facility] Work Phone: Hematocrit Auto (Bld) [Volum e fraction]on 05-15-2022 Hematocrit (Bld) [Volume fraction] 32.6 % 40-54 [facility] Work Phone: Laboratory - Hematology and Cell countson 05-15-2022 Erythrocyte distribution width (RBC) [Entitic vol] 47.5 fL 35.1-43.9 [facility] Work Phone: Erythrocyte distribution width (RBC) [Ratio] 14.7 % 11.6-14.6 [facility] Work Phone: Immature granulocytes/100 WBC (Bld) 0.400 % 0.0-0.9 [facility] Work Phone: Comment on above: IG% - Immature Granu locytes (promyelocytes, myelocytes and metamyelocytes) > 1% indicates that a LEFT SHIFT is Present. MCH (RBC) [Entitic mass] 28.8 pg 27.0-32.0 [facility] Work Phone: Nucleated RBC/100 WBC (Bld) [Ratio] 0 % 0-5 [facility] Work Phone: MCHC Auto (RBC) [Mass/Vol]on 05-15-2022 MCHC (RBC) [Mass/Vol] 32.8 g/dL 32-36 [facility] Work Phone: No Panel Informationon 05-15 Reactive Lymphocytes RARE [facility] Work Phone: Platelets bldon 05-15-2022 Platelets (Bld) [#/Vol] 220 10*3/uL 150-450 [facility] Work Phone: Basophil percentageon 2021 Basophil percentage 4.1 mg/dL 2.5-4.9 [facility] Work Phone: [phone] Chloride [Moles/Vol] 111 mmol/L 98-107 [facility] Work Phone: Glucose [Mass/Vol] 82 mg/dL 74-106 [facility] Work Phone: Potassium [Moles/Vol] 3.8 mmol/L 3.5-5.1 [facility] Work Phone: Sodium [Moles/Vol] 139 mmol/L 136-145 [facility] Work Phone: Laboratory - Chemistry and C hemistry - challengeon 05-14-2022 CO2 [Moles/Vol] 21.0 mmol/L 21.0-32.0 [facility] Work Phone: Magnesium [Mass/Vol] 2.1 mg/dL 1.6-2.6 [facility] Work Phone: Urea nitrogen/Creatinine [Mass ratio] 14.8 mg/mg 10-20 [facility] Work Phone: No Panel Informationon 05-14 Estimated Creatinine Clearance Calc 58.06 ml/min [facility] Work Phone: Estimated GFR (MDRD) Amer 86 mL/min >60 [facility] Work Phone: Comment on above: GFR Calc Estimated GFR (MDRD) Non-Af Amer 71 mL/min >60 [facility] Work Phone: Comment on above: Non- GFR Calc Serum or plasma calcium tejas urement (mass/volume)on 05-14-2022 Calcium [Mass/Vol] 8.3 mg/dL 8.5-10.1 [facility] Work Phone: Serum or plasma creatinine m easurement (mass/volume)on 05-14-2022 Creatinine [Mass/Vol] 1.08 mg/dL 0.70-1.30 [facility] Work Phone: Comment on above: The validity of the calculated GFR & GFRAA in patients over 70 years has not been determined. Clinical correlation is essential. Serum or plasma urea nitroge n measurement (mass/volume)on 05-14-2022 Urea nitrogen [Mass/Vol] 16 mg/dL 7-18 [facility] Work Phone: Thin prep Papanicolaou smear with manual screeningon 05-14-2022 Thin prep Papanicolaou smear with manual screening 7 5-15 [facility] Work Phone: Absolute lymphocyte counton 05-13-2022 Lymphocytes Auto (Unsp spec) [#/Vol] 1.12 10*3/uL 0.83-4.51 [facility] Work Phone: Basophil percentageon 2021 Lactate [Moles/Vol] 1.1 mmol/L 0.4-2.0 [facility] Work Phone: Basophil percentage 10-25 SEEN /hpf 0-5 [facility] Work Phone: Basophil percentage 1.8 mg/dL 2.5-4.9 [facility] Work Phone: [phone] Basophils/100 WBC (Bld) 0.1 % 0-1 [facility] Work Phone: Bilirubin [Mass/Vol] 0.50 mg/dL 0.20-1.00 [facility] Work Phone: [phone] Comment on above: For patients on eltr ombopag therapy, use of Dimension [place] TBIL is not recommended. Chloride [Moles/Vol] 106 mmol/L 98-107 [facility] Work Phone: Eosinophils/100 WBC (Bld) 0.0 % 0-5 [facility] Work Phone: Glucose [Mass/Vol] 142 mg/dL 74-106 [facility] Work Phone: Comment on above: Fasting Glucose resu lt greater than or equal to 126 mg/dL suggests DIABETES MELLITUS per A.D.A. criteria. Neutrophils (Bld) [#/Vol] 12.3 10*3/uL 2.0-7.7 [facility] Work Phone: [phone] Neutrophils/100 WBC (Bld) 84.0 % 47-70 [facility] Work Phone: [phone] Potassium [Moles/Vol] 3.3 mmol/L 3.5-5.1 [facility] Work Phone: Protein [Mass/Vol] 6.6 g/dL 6.4-8.2 [facility] Work Phone: Sodium [Moles/Vol] 136 mmol/L 136-145 [facility] Work Phone: WBC (Bld) [#/Vol] 14.6 10*3/uL 4.4-11.0 [facility] Work Phone: Bilirubin Test strip Ql (U)o n 05-13-2022 Bilirubin Ql (U) Negative Negative [facility] Work Phone: Blood erythrocytes count (nu mber/volume)on 05-13-2022 RBC (Bld) [#/Vol] 3.44 10*6/uL 4.6-6.2 [facility] Work Phone: Blood hemoglobin measurement (mass/volume)on 05-13-2022 Hemoglobin (Bld) [Mass/Vol] 9.9 g/dL 13.0-16.5 [facility] Work Phone: Blood lymphocytes/100 leukoc yteson 05-13-2022 Lymphocytes/100 WBC (Bld) 7.7 % 19-41 [facility] Work Phone: Blood monocytes/100 leukocyt eson 05-13-2022 Monocytes/100 WBC (Bld) 6.5 % 0-10 [facility] Work Phone: Blood platelet mean volumeon 05-13-2022 Platelet mean volume (Bld) [Entitic vol] 10.5 fL 6.2-12.0 [facility] Work Phone: Determination of erythrocyte mean corpuscular volume (MCV)on 05-13-2022 MCV (RBC) [Entitic vol] 88.4 fL 80-94 [facility] Work Phone: Hematocrit Auto (Bld) [Volum e fraction]on 05-13-2022 Hematocrit (Bld) [Volume fraction] 30.4 % 40-54 [facility] Work Phone: INR in Blood by Coagulation assayon 05-13-2022 INR Coag (Bld) [Relative time] 2.8 {INR} [facility] Work Phone: Ketones Test strip Ql (U)on 05-13-2022 Ketones Ql (U) 15 mg/dl Negative [facility] Work Phone: Laboratory - Chemistry and C hemistry - challengeon 05-13-2022 ALP [Catalytic activity/Vol] 67 U/L 45-117 [facility] Work Phone: ALT [Catalytic activity/Vol] 27 U/L 16-61 [facility] Work Phone: CO2 [Moles/Vol] 21.0 mmol/L 21.0-32.0 [facility] Work Phone: Globulin (S) [Mass/Vol] 4.5 g/dL 2.2-4.2 [facility] Work Phone: Lipase [Catalytic activity/Vol] 240 U/L 73-393 [facility] Work Phone: Magnesium [Mass/Vol] 1.9 mg/dL 1.6-2.6 [facility] Work Phone: Urea nitrogen/Creatinine [Mass ratio] 13.5 mg/mg 10-20 [facility] Work Phone: Laboratory - Coagulationon 0 05-13-2022 PT Coag (PPP) [Time] 29.6 s 11.7-14.9 [facility] Work Phone: Laboratory - Hematology and Cell countson 05-13-2022 Erythrocyte distribution width (RBC) [Entitic vol] 47.0 fL 35.1-43.9 [facility] Work Phone: Erythrocyte distribution width (RBC) [Ratio] 14.7 % 11.6-14.6 [facility] Work Phone: Immature granulocytes/100 WBC (Bld) 1.700 % 0.0-0.9 [facility] Work Phone: Comment on above: IG% - Immature Granu locytes (promyelocytes, myelocytes and metamyelocytes) > 1% indicates that a LEFT SHIFT is Present. MCH (RBC) [Entitic mass] 28.8 pg 27.0-32.0 [facility] Work Phone: Nucleated RBC/100 WBC (Bld) [Ratio] 0 % 0-5 [facility] Work Phone: MCHC Auto (RBC) [Mass/Vol]on 05-13-2022 MCHC (RBC) [Mass/Vol] 32.6 g/dL 32-36 [facility] Work Phone: Mucus LM Ql (Urine sed)on Mucus Ql (Urine sed) 0 SEEN /hpf [facility] Work Phone: Nitrite Test strip Ql (U)on 05-13-2022 Nitrite Ql (U) Positive Negative [facility] Work Phone: No Panel Informationon 05-13 Estimated Creatinine Clearance Calc 44.47 ml/min [facility] Work Phone: Estimated GFR (MDRD) Amer 63 mL/min >60 [facility] Work Phone: Comment on above: GFR Calc Estimated GFR (MDRD) Non-Af Amer 52 mL/min >60 [facility] Work Phone: Comment on above: Non- GFR Calc Platelets bldon 05-13-2022 Platelets (Bld) [#/Vol] 261 10*3/uL 150-450 [facility] Work Phone: Protein Test strip Ql (U)on 05-13-2022 Protein Ql (U) 30 mg/dl Negative [facility] Work Phone: Serum or plasma albumin tejas urement (mass/volume)on 05-13-2022 Albumin [Mass/Vol] 2.1 g/dL 3.2-5.0 [facility] Work Phone: Serum or plasma albumin/glob ulin mass ratioon 05-13-2022 Albumin/Globulin [Mass ratio] 0.5 {ratio} 0.9-2.4 [facility] Work Phone: Serum or plasma calcium tejas urement (mass/volume)on 05-13-2022 Calcium [Mass/Vol] 8.8 mg/dL 8.5-10.1 [facility] Work Phone: Serum or plasma creatinine m easurement (mass/volume)on 05-13-2022 Creatinine [Mass/Vol] 1.41 mg/dL 0.70-1.30 [facility] Work Phone: Comment on above: The validity of the calculated GFR & GFRAA in patients over 70 years has not been determined. Clinical correlation is essential. Serum or plasma urea nitroge n measurement (mass/volume)on 05-13-2022 Urea nitrogen [Mass/Vol] 19 mg/dL 7-18 [facility] Work Phone: Squamous epithelial cells de tection in urine sediment by light microscopyon 05-13-2022 Epithelial cells.squamous LM Ql (Urine sed) 0 SEEN /hpf 0-5 [facility] Work Phone: Thin prep Papanicolaou smear with manual screeningon 05-13-2022 Thin prep Papanicolaou smear with manual screening 22 U/L 15-37 [facility] Work Phone: Thin prep Papanicolaou smear with manual screening 9 5-15 [facility] Work Phone: Urine blood detectionon 04-30 RBC Ql (U) 150 /ul Negative [facility] Work Phone: RBC Ql (U) 0-5 SEEN /hpf 0-5 [facility] Work Phone: Urine clarityon 05-13-2022 Clarity (U) Clear Clear [facility] Work Phone: Urine color determinationon 05-13-2022 Color (U) Yellow Yellow [facility] Work Phone: Urine glucose detectionon Glucose Ql (U) Normal mg/dl Normal [facility] Work Phone: Urine leukocyte esterase det ection by dipstickon 05-13-2022 Leukocyte esterase Test strip Ql (U) 100 /ul Negative [facility] Work Phone: Urine pHon 05-13-2022 pH (U) 8.0 [pH] 5.0 - 8.0 [facility] Work Phone: Urine sediment bacteria coun t by microscopy (number/high power field)on 05-13-2022 Bacteria LM.HPF (Urine sed) [#/Area] 3 /[HPF] None Seen [facility] Work Phone: Urine specific gravity measu rementon 05-13-2022 Specific gravity (U) [Rel density] 1.010 1.002-1.030 [facility] Work Phone: Urobilinogen Auto test strip Ql (U)on 05-13-2022 Urobilinogen Ql (U) Normal mg/dl Normal [facility] Work Phone: CNPNon 02-02-2022 CNPN [...] spoke to updated and was forwarded to [facility] Tigist to be scheduled for MRI and office appointment Kristal Magallon LPN 02/02/2022 3:37 PM Signed Patient wants to be scheduled at [facility] to see if can get in for MRI sooner. Faxed order to [facility] Patient to call and schedule follow up visit with Dr Michele after MRI. 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 Normal [facility] Absolute lymphocyte counton 01-31-2022 Lymphocytes Auto (Unsp spec) [#/Vol] 2.06 10*3/uL 0.83-4.51 [facility] Work Phone: Basophil percentageon 2021 Basophils/100 WBC (Bld) 0.4 % 0-1 [facility] Work Phone: Eosinophils/100 WBC (Bld) 2.6 % 0-5 [facility] Work Phone: Neutrophils (Bld) [#/Vol] 5.9 10*3/uL 2.0-7.7 [facility] Work Phone: Neutrophils/100 WBC (Bld) 65.6 % 47-70 [facility] Work Phone: WBC (Bld) [#/Vol] 9.0 10*3/uL 4.4-11.0 [facility] Work Phone: Blood erythrocytes count (nu mber/volume)on 01-31-2022 RBC (Bld) [#/Vol] 4.60 10*6/uL 4.6-6.2 [facility] Work Phone: Blood hemoglobin measurement (mass/volume)on 01-31-2022 Hemoglobin (Bld) [Mass/Vol] 13.6 g/dL 13.0-16.5 [facility] Work Phone: Blood lymphocytes/100 leukoc yteson 01-31-2022 Lymphocytes/100 WBC (Bld) 22.9 % 19-41 [facility] Work Phone: Blood monocytes/100 leukocyt eson 01-31-2022 Monocytes/100 WBC (Bld) 8.2 % 0-10 [facility] Work Phone: Blood platelet mean volumeon 01-31-2022 Platelet mean volume (Bld) [Entitic vol] 11.2 fL 6.2-12.0 [facility] Work Phone: Determination of erythrocyte mean corpuscular volume (MCV)on 01-31-2022 MCV (RBC) [Entitic vol] 88.9 fL 80-94 [facility] Work Phone: Erythrocyte sedimentation ra isabelle 01-31-2022 ESR (Bld) [Velocity] 53 mm/h 0-20 [facility] Work Phone: Hematocrit Auto (Bld) [Volum e fraction]on 01-31-2022 Hematocrit (Bld) [Volume fraction] 40.9 % 40-54 [facility] Work Phone: Laboratory - Hematology and Cell countson 01-31-2022 Erythrocyte distribution width (RBC) [Entitic vol] 45.1 fL 35.1-43.9 [facility] Work Phone: Erythrocyte distribution width (RBC) [Ratio] 14.0 % 11.6-14.6 [facility] Work Phone: Immature granulocytes/100 WBC (Bld) 0.300 % 0.0-0.9 [facility] Work Phone: Comment on above: IG% - Immature Granu locytes (promyelocytes, myelocytes and metamyelocytes) > 1% indicates that a LEFT SHIFT is Present. MCH (RBC) [Entitic mass] 29.6 pg 27.0-32.0 [facility] Work Phone: Nucleated RBC/100 WBC (Bld) [Ratio] 0 % 0-5 [facility] Work Phone: MCHC Auto (RBC) [Mass/Vol]on 01-31-2022 MCHC (RBC) [Mass/Vol] 33.3 g/dL 32-36 [facility] Work Phone: Platelets bldon 05-04-2022 Platelets (Bld) [#/Vol] 173 10*3/uL 150-450 [facility] Work Phone: Serum or plasma C reactive p rotein measurement (mass/volume)on 01-31-2022 CRP [Mass/Vol] 16.30 mg/L 0.0-3.0 [facility] Work Phone: Comment on above: C-Reactive Protein ( CRP) provides useful information for thediagnosis, therapy and monitoring of inflammatory processesand associated diseases. For the evaluation of Relative Riskfor Cardiovascular Disease, a High Sensitivity CRP (HSCRP)should be ordered. Basophil percentageon 2021 Bilirubin [Mass/Vol] 0.50 mg/dL 0.20-1.00 [facility] Work Phone: Comment on above: For patients on eltr ombopag therapy, use of Dimension [place] TBIL is not recommended. Chloride [Moles/Vol] 107 mmol/L 98-107 [facility] Work Phone: Glucose [Mass/Vol] 86 mg/dL 74-106 [facility] Work Phone: Potassium [Moles/Vol] 3.6 mmol/L 3.5-5.1 [facility] Work Phone: Protein [Mass/Vol] 7.1 g/dL 6.4-8.2 [facility] Work Phone: Sodium [Moles/Vol] 139 mmol/L 136-145 [facility] Work Phone: WBC (Bld) [#/Vol] 8.5 10*3/uL 4.4-11.0 [facility] Work Phone: Blood erythrocytes count (nu mber/volume)on 01-15-2022 RBC (Bld) [#/Vol] 4.64 10*6/uL 4.6-6.2 [facility] Work Phone: Blood hemoglobin measurement (mass/volume)on 01-15-2022 Hemoglobin (Bld) [Mass/Vol] 13.6 g/dL 13.0-16.5 [facility] Work Phone: Blood platelet mean volumeon 01-15-2022 Platelet mean volume (Bld) [Entitic vol] 11.4 fL 6.2-12.0 [facility] Work Phone: Determination of erythrocyte mean corpuscular volume (MCV)on 01-15-2022 MCV (RBC) [Entitic vol] 88.8 fL 80-94 [facility] Work Phone: Erythrocyte sedimentation ra isabelle 01-15-2022 ESR (Bld) [Velocity] 27 mm/h 0-20 [facility] Work Phone: Comment on above: Previous reported re sult: 65 mm/hrEdited by: JUNG on 01/15/22:9397 AMENDED REPORT 01/15/22 675 SED RATE previously reported as: 65 H mm/hr Hematocrit Auto (Bld) [Volum e fraction]on 01-15-2022 Hematocrit (Bld) [Volume fraction] 41.2 % 40-54 [facility] Work Phone: Laboratory - Chemistry and C hemistry - challengeon 01-15-2022 ALP [Catalytic activity/Vol] 58 U/L 45-117 [facility] Work Phone: ALT [Catalytic activity/Vol] 19 U/L 16-61 [facility] Work Phone: CO2 [Moles/Vol] 26.0 mmol/L 21.0-32.0 [facility] Work Phone: Globulin (S) [Mass/Vol] 4.2 g/dL 2.2-4.2 [facility] Work Phone: Urea nitrogen/Creatinine [Mass ratio] 12.1 mg/mg 10-20 [facility] Work Phone: Laboratory - Hematology and Cell countson 01-15-2022 Erythrocyte distribution width (RBC) [Entitic vol] 44.3 fL 35.1-43.9 [facility] Work Phone: Erythrocyte distribution width (RBC) [Ratio] 13.9 % 11.6-14.6 [facility] Work Phone: MCH (RBC) [Entitic mass] 29.3 pg 27.0-32.0 [facility] Work Phone: MCHC Auto (RBC) [Mass/Vol]on 01-15-2022 MCHC (RBC) [Mass/Vol] 33.0 g/dL 32-36 [facility] Work Phone: No Panel Informationon 01-15 Estimated GFR (MDRD) Amer 87 mL/min >60 [facility] Work Phone: Comment on above: GFR Calc Estimated GFR (MDRD) Non-Af Amer 72 mL/min >60 [facility] Work Phone: Comment on above: Non- GFR Calc Platelets bldon 01-15-2022 Platelets (Bld) [#/Vol] 166 10*3/uL 150-450 [facility] Work Phone: Serum or plasma C reactive p rotein measurement (mass/volume)on 01-15-2022 CRP [Mass/Vol] 45.10 mg/L 0.0-3.0 [facility] Work Phone: Comment on above: C-Reactive Protein ( CRP) provides useful information for thediagnosis, therapy and monitoring of inflammatory processesand associated diseases. For the evaluation of Relative Riskfor Cardiovascular Disease, a High Sensitivity CRP (HSCRP)should be ordered. Serum or plasma albumin tejas urement (mass/volume)on 01-15-2022 Albumin [Mass/Vol] 2.9 g/dL 3.2-5.0 [facility] Work Phone: Serum or plasma albumin/glob ulin mass ratioon 01-15-2022 Albumin/Globulin [Mass ratio] 0.7 {ratio} 0.9-2.4 [facility] Work Phone: Serum or plasma calcium tejas urement (mass/volume)on 01-15-2022 Calcium [Mass/Vol] 8.9 mg/dL 8.5-10.1 [facility] Work Phone: Serum or plasma creatinine m easurement (mass/volume)on 01-15-2022 Creatinine [Mass/Vol] 1.07 mg/dL 0.70-1.30 [facility] Work Phone: Comment on above: The validity of the calculated GFR & GFRAA in patients over 70 years has not been determined. Clinical correlation is essential. Serum or plasma urea nitroge n measurement (mass/volume)on 01-15-2022 Urea nitrogen [Mass/Vol] 13 mg/dL - [facility] Work Phone: Thin prep Papanicolaou smear with manual screeningon 01-15-2022 Thin prep Papanicolaou smear with manual screening 15 U/L 15-37 [facility] Work Phone: Thin prep Papanicolaou smear with manual screening 6 5-15 [facility] Work Phone: Whole blood hemoglobin A1c/t otal hemoglobin ratio (mass fraction)on 01-15-2022 HbA1c (Bld) [Mass fraction] 5.3 % 3.8-5.6 [facility] Work Phone: Comment on above: Normal < 5.7 % Predi abetic 5.7 - 6.4 % Diabetic >or= 6.5 % Please note range changes. URINALYSISon 02-27-2019 AMORPH SEDIMENT 1+ Normal [facility] Comment on above: Performed By: #### U A #### [facility] [address] [place] [address] Bacteria LM.HPF (Urine sed) [#/Area] 2+ Abnormal [facility] Comment on above: Performed By: #### U A #### [facility] [address] [place] [address] Bilirubin [Mass/Vol] Negative Normal NEGATIVE [facility] Comment on above: Performed By: #### U A #### [facility] [address] [place] [address] BLOOD 2+ Abnormal NEGATIVE [facility] Comment on above: Performed By: #### U A #### [facility] [address] [place] [address] Clarity (U) SL CLOUDY Normal CLEAR [facility] Comment on above: Performed By: #### U A #### [facility] [address] [place] [address] Color (U) YELLOW Normal YELLOW [facility] Comment on above: Performed By: #### U A #### [facility] [address] [place] [address] Epithelial cells LM.HPF (Urine sed) [#/Area] 5-10 Normal [facility] Comment on above: Performed By: #### U A #### [facility] [address] [place] [address] Glucose [Mass/Vol] Negative Normal NEGATIVE [facility] Comment on above: Performed By: #### U A #### [facility] [address] [place] [address] KETONE Negative Normal NEGATIVE [facility] Comment on above: Performed By: #### U A #### [facility] [address] [place] [address] LEUKO ESTERASE 2+ Abnormal NEGATIVE [facility] Comment on above: Performed By: #### U A #### [facility] [address] [place] [address] MUCOUS 1+ Normal [facility] Comment on above: Performed By: #### U A #### [facility] [address] [place] [address] Nitrite Ql (U) Negative Normal NEGATIVE [facility] Comment on above: Performed By: #### U A #### [facility] [address] [place] [address] pH (Bld) 6.5 Normal 5.0-9.0 [facility] Comment on above: Performed By: #### U A #### [facility] [address] [place] [address] Protein (U) [Mass/Vol] Negative Normal NEGATIVE [facility] Comment on above: Performed By: #### U A #### [facility] [address] [place] [id number] RBC (U) [#/Vol] 16-20 Normal 0-2 [facility] Comment on above: Performed By: #### U A #### [facility] [address] [place] [id number] Specific gravity (U) [Rel density] <= 1.005 Normal 1.005-1.030 [facility] Comment on above: Performed By: #### U A #### [facility] [address] [place] [address] Urobilinogen Qn (U) 0.2 E.U./dl Normal 0.2-1.0 [facility] Comment on above: Performed By: #### U A #### [facility] [address] [place] [id number] WBC (Bld) [#/Vol] 51-100 Normal 0-5 [facility] Comment on above: Performed By: #### U A #### [facility] [address] [place] [id number] URINE CULTUREon 02-27-2019 Bacteria identified Cx Nom [...] >8 F TOBRAMYCIN S <4 F Normal [facility] Comment on above: Performed By: #### U C #### [facility] [address] [place] [id number] URINE CULTUREon 12-22-2018 Bacteria identified Cx Nom [...] R >8 F TOBRAMYCIN S <4 F [facility] Comment on above: Performed By: #### U C #### [facility] [address] [place] [id number] FISTULAon 11-03-2018 FISTULA ------- RUN DATE: 11/04/18 [facility] LIVE PAGE 1 RUN TIME: 1223 Specimen Inquiry RUN USER: INTERFACE [facility]: [id number] LOC: [facility] U #: [id number] AGE/SX: 73/M ROOM: RE11/03/[address]: VICKIE TREJO,MICHELLE MARTINEZ : 49 BED: DIS: STATUS: [facility] TLOC: SPEC #: [id number] RECD: 11/03/18 STATUS: [facility] #: [id number] BRIAN: 11/03/18- SUBM DR: MICHELLE JOHNSTON MD ENTERED: 11/03/18 SP TYPE: FISTULA OTHR DR: ELIZABETH PACHECO MD ORDERED: LEVEL 3 ([id number]), K COCKTAIL IHC, SURGICAL SPEC, ADD IHC/3 [...] MD 11/04/18 1223 END OF REPORT Normal [facility] Comment on above: Order Comment: REFER RING MEDICAL DOCTOR: RERE SURGEON: REINA # OF CONTAINERS 1 TISSUE SUBMITTED: FISTULA TRACK OF ABDOMEN PROCEDURE: WOUND DEBRIDEMENT OF ABD PRELIMINARY DIAGNOSIS: ABD WOUND Performed By: #### F IS #### [facility] [address] [place] [address] BASIC METABOLIC PANELon 10-02 Calcium [Mass/Vol] 9.3 mg/dL Normal 8.5-10.5 [facility] Comment on above: Performed By: #### C BCD, BMP #### [facility] [address] [place] [address] Chloride [Moles/Vol] 104 mmol/L Normal 98-107 [facility] Comment on above: Performed By: #### C BCD, BMP #### [facility] [address] [place] [address] CO2 [Moles/Vol] 29 mmol/L Normal 21-32 [facility] Comment on above: Performed By: #### C BCMadi, BMP #### [facility] [address] [place] [address] Creatinine [Mass/Vol] 1.29 mg/dL Normal 0.70-1.30 [facility] Comment on above: Performed By: #### C BCMadi, BMP #### [facility] [address] [place] [address] EST GLOM FILT > 60 Normal [facility] Comment on above: Result Comment: Result [...] Performed By: #### C KALEB, BMP #### [facility] [address] [place] [address] ESTIMATED GLOM FILT RATE 55 mL/min/ Low [facility] Comment on above: Performed By: #### C BCMadi, BMP #### [facility] [address] [place] [address] Glucose [Mass/Vol] 99 mg/dL Normal 65-99 [facility] Comment on above: Performed By: #### C BCMadi, BMP #### [facility] [address] [place] [address] Potassium [Moles/Vol] 3.7 mmol/L Normal 3.5-5.1 [facility] Comment on above: Performed By: #### C BCD, BMP #### [facility] [address] [place] [address] Sodium [Moles/Vol] 139 mmol/L Normal 136-145 [facility] Comment on above: Performed By: #### C KALEB, BMP #### [facility] [address] [place] [address] Urea nitrogen [Mass/Vol] 15 mg/dL Normal 7-24 [facility] Comment on above: Performed By: #### C KALEB, BMP #### [facility] [address] [place] [address] CBC with DIFFERENTIALon 10-02 Basophils (Bld) [#/Vol] 0.0 10*3/uL Normal 0.0-0.1 [facility] Comment on above: Performed By: #### C KALEB, BMP #### [facility] [address] [place] [address] Basophils/100 WBC (Bld) 0.5 % Normal 0.0-1.0 [facility] Comment on above: Performed By: #### C KALEB, BMP #### [facility] [address] [place] [address] Eosinophils (Bld) [#/Vol] 0.3 10*3/uL Normal 0.0-0.4 [facility] Comment on above: Performed By: #### C BCMadi, BMP #### [facility] [address] [place] [address] Eosinophils/100 WBC (Bld) 3.4 % Normal 1.0-4.0 [facility] Comment on above: Performed By: #### C BCMadi, BMP #### [facility] [address] [place] [address] Hematocrit (Bld) [Volume fraction] 43.7 % Normal 42.0-52.0 [facility] Comment on above: Performed By: #### C BCMadi, BMP #### [facility] [address] [place] [address] Hemoglobin (Bld) [Mass/Vol] 14.2 g/dL Normal 14.0-18.0 [facility] Comment on above: Performed By: #### C BCMadi, BMP #### [facility] [address] [place] [address] IG # 0.0 10*3/uL Normal 0.0-0.1 [facility] Comment on above: Performed By: #### C BCMadi, BMP #### [facility] [address] [place] [address] IG % 0.2 % Normal 0.0-1.0 [facility] Comment on above: Performed By: #### C BCMadi, BMP #### [facility] [address] [place] [address] Lymphocytes (Bld) [#/Vol] 2.0 10*3/uL Normal 1.3-4.4 [facility] Comment on above: Performed By: #### C KALEB, BMP #### [facility] [address] [place] [address] Lymphocytes/100 WBC (Bld) 23.3 % Low 27.0-41.0 [facility] Comment on above: Performed By: #### C KALEB, BMP #### [facility] [address] [place] [address] MCH (RBC) [Entitic mass] 32.5 g/dl Low 33.0-37.0 [facility] Comment on above: Performed By: #### C BCMadi, BMP #### [facility] [address] [place] [address] MCV (RBC) [Entitic vol] 88.6 fL Normal 80.0-94.0 [facility] Comment on above: Performed By: #### C BCMadi, BMP #### [facility] [address] [place] [address] MEAN CORPUSCULAR HGB 28.8 pg Normal 27.0-31.0 [facility] Comment on above: Performed By: #### C BCMadi, BMP #### [facility] [address] [place] [address] Monocytes (Bld) [#/Vol] 0.6 10*3/uL Normal 0.1-1.0 [facility] Comment on above: Performed By: #### C KALEB, BMP #### [facility] [address] [place] [address] Monocytes/100 WBC (Bld) 6.9 % Normal 3.0-9.0 [facility] Comment on above: Performed By: #### C KALEB, BMP #### [facility] [address] [place] [address] Neutrophils (Bld) [#/Vol] 5.6 10*3/uL Normal 2.3-7.9 [facility] Comment on above: Performed By: #### C KALEB, BMP #### [facility] [address] [place] [address] Neutrophils/100 WBC (Bld) 65.7 % Normal 47.0-73.0 [facility] Comment on above: Performed By: #### C KALEB, BMP #### [facility] [address] [place] [address] NUCLEATED RED BLOOD CELL 0.0 % Normal 0.0-0.0 [facility] Comment on above: Performed By: #### C KALEB, BMP #### [facility] [address] [place] [address] NUCLEATED RED BLOOD CELL 0.0 10*3/uL Normal 0.0-0.0 [facility] Comment on above: Performed By: #### C KALEB, BMP #### [facility] [address] [place] [address] PLATELET COUNT AUTOMATED 198 10*3/uL Normal 130-400 [facility] Comment on above: Performed By: #### C BCMadi, BMP #### [facility] [address] [place] [address] Platelet mean volume (Bld) [Entitic vol] 9.9 fL Normal 9.6-12.3 [facility] Comment on above: Performed By: #### C BCD, BMP #### [facility] [address] [place] [address] RBC (Bld) [#/Vol] 4.93 10*6/uL Normal 4.50-5.90 [facility] Comment on above: Performed By: #### C BCD, BMP #### [facility] [address] [place] [address] RED CELL DISTRI WIDTH 14.1 % Normal 0-14.5 [facility] Comment on above: Performed By: #### C BCD, BMP #### [facility] [address] [place] [address] WBC (Bld) [#/Vol] 8.5 10*3/uL Normal 4.8-10.8 [facility] Comment on above: Performed By: #### C BCD, BMP #### [facility] [address] [place] [address] ELECTROCARDIOGRAM REPORTon 0 10-30-2018 Composition Molder Report [place], [place] ELECTROCARDIOGRAM REPORT NAME: JAVIER JOHNSON Neida UNIT #: [id number] ROOM: DOCTOR: NORBERT DRAFT REPORT BIRTHDATE: [birth year] [facility] Test Date: 2018-10-30 Test Time: 13:16:16 Pat Name: JAVIER JOHNSON Department: Room: Gender: M Line Leader: Davida Calderón : 1945 Requested By: MICHELLE JOHNSTON Order Number: [id number] Reading MD: Miguel Rodriguez MD Measurements Intervals Erwin Rate: 55 P: 75 WA: 145 QRS: 49 QRSD: 94 T: 57 QT: 475 QTc: 455 Interpretive Statements Sinus rhythm Probable left atrial enlargement No previous ECG available for comparison Electronically Signed On 10-30-2018 18:04:12 PST by Miguel Rodriguez MD CM:EKGRPT:ELECTROCARDIOGRAM REPORT 1316 1804 MICHELLE JOHNSTON MD EPIPHANY DRAFT REPORT MICHELLE JOHNSTON MD Normal [facility] Reflex Urn Culton 08-07-2018 Urinalysis complete W Reflex Culture panel - Urine ORGANISM ID: 1.1 - Lactose Fermenting [place] Count 50,000-100,000 CFU/ml Comment Indole positiveORGANISM ID: 1.2 - Nonlactose Fermenting [place] Count 1,000-9,000 CFU/ml Comment Oxidase positiveORGANISM ID: 1.3 - Mixed Urogenital [place] Count 10,000-50,000 CFU/ml Comment More than 2 organisms isolated, greater than MORE2 10,000 CFU/ML. No further workup on this isolate MORE3 unless requested. Normal [facility] ([place]) Comment on above: Performed By: #### 5 8077-9 ####[facility] [place], [place] [address] CT urogramon 08-05-2018 CT urogram [facility] [address] [place], [place] [address] CT Scan Report Signed Patient: JAVIER JOHNSON MR#: [id number] : 1945 Acct:[id number] Age/Sex: 73 / M Admit Date: 08/05/18 Loc: ANC Attending Dr: Dallas Ortiz MD Ordering Physician: Dallas Ortiz MD Date of Service: 08/05/18 Procedure(s): CT urogram Accession Number(s): [id number] cc: PHYSICIAN INDICATIONS: C67.9 Technique: Axial images [...] 55 Signed By: Tony Barrios MD 08/05/181655 Operations Specialist: JAYLENE Normal [facility] Micro UrnSon 08-05-2018 Bacteria LM Ql (Urine sed) Trace Normal NONE SEEN [facility] [place] Comment on above: Order Comment: Urine ,Clean Catch Performed By: #### 1 2234-8, UAS ####[address] [address] RBC Test strip #/vol (U) 21-50 Normal NONE SEEN [facility] [place] Comment on above: Order Comment: Urine ,Clean Catch Performed By: #### 1 2234-8, UAS ####[address] [place] [address] WBC,Urine IRIS 51-100 Normal NONE SEEN [facility] [place] Comment on above: Order Comment: Urine ,Clean Catch Performed By: #### 1 5-8, UAS ####[address] [place] [address] PSA SerPl-mCncon 08-05-2018 Prostate specific Ag mass conc 0.10 ng/mL Normal 0.00-4.00 [facility]) Comment on above: Performed By: #### 2 857-1 ####[address] [address] Urinalysison 08-05-2018 Color Nom (U) YELLOW Normal [facility] ([place]) Comment on above: Order Comment: Urine ,Clean Catch Performed By: #### 1 8, UAS ####[facility] [place] [address] Add Urine Culture REFLEXED TO CULTURE Normal [facility] ([place] Comment on above: Order Comment: Urine ,Clean Catch Result Comment: A Ur ine Culture has been added to this specimen. Performed By: #### 1 8, UAS ####[address] [address] Appearance Nom (U) CLOUDY Normal [facility] ([place] Comment on above: Order Comment: Urine ,Clean Catch Performed By: #### 1 8, UAS ####[address] [address] Bilirubin+Urobilinoge n Ql (U) Negative Normal NEGATIVE [facility] [place] Comment on above: Order Comment: Urine ,Clean Catch Performed By: #### 1 8, UAS ####[address] [address] Glucose Automated test strip mass conc (U) Negative Normal NEGATIVE [facility] [place] Comment on above: Order Comment: Urine ,Clean Catch Performed By: #### 1 8, UAS ####[address] [address] Ketones Ql (U) Negative Normal NEGATIVE [facility] ([place]) Comment on above: Order Comment: Urine ,Clean Catch Performed By: #### 1 8, UAS ####[address] [address] Microscopic observation LM Nom (Urine sed) YES Normal [facility] ([place] Comment on above: Order Comment: Urine ,Clean Catch Result Comment: A Ur ine Microscopic has been added to this specimen. Performed By: #### 1 8, UAS ####[address] [place] [address] Nitrate Ql (U) Negative Normal NEGATIVE [facility] ([place] Comment on above: Order Comment: Urine ,Clean Catch Performed By: #### 1 8, UAS ####[address] [place] [address] pH (U) 6.0 Normal 4.6-8.0 [facility] ([place] Comment on above: Order Comment: Urine ,Clean Catch Performed By: #### 1 8, UAS ####[address] [place] [address] Protein Automated test strip Ql (U) 30 mg/dL Abnormal NEGATIVE [facility] ([place] Comment on above: Order Comment: Urine ,Clean Catch Performed By: #### 1 2235-04, UAS ####[address] [address] RBC Ql (U) MODERATE Abnormal NEGATIVE [facility] ([place] Comment on above: Order Comment: Urine ,Clean Catch Performed By: #### 1 2235-04, UAS ####[address] [place] [address] Specific gravity Relative Density (U) 1.015 Normal 1.001-1.035 [facility] ([place] Comment on above: Order Comment: Urine ,Clean Catch Performed By: #### 1 2235-04, UAS ####[address] [address] Urobilinogen Test strip mass conc (U) Negative Normal NEGATIVE [facility] [place] Comment on above: Order Comment: Urine ,Clean Catch Performed By: #### 1 2235-04, UAS ####[address] [address] WBC Visual Ql (U) MODERATE Abnormal NEGATIVE [facility] ([place] Comment on above: Order Comment: Urine ,Clean Catch Performed By: #### 1 2235-8, UAS ####[facility] [place] [address] CBC With Platelet No Shaneka browne 09-20-2017 Erythrocyte distribution width Auto Ratio (RBC) 15.9 fL High 11.5-15.0 [facility] Comment on above: Order Comment: Garry cannon has been rescheduled by [employer] at 09/20/17 04:31. Reason:Failed attempt at venipuncture Erythrocytes (RBC) 3.48 E12/L Low 3.80-5.80 [facility] Comment on above: Order Comment: Garry cannon has been rescheduled by [employer] at 09/20/17 04:31. Reason:Failed attempt at venipuncture Hematocrit (HCT) 29.3 % Low 37.0-54.0 [facility] Comment on above: Order Comment: Garyr cannon has been rescheduled by [employer] at 09/20/17 04:31. Reason:Failed attempt at venipuncture Hemoglobin mass conc (Bld) 8.9 g/dL Low 12.5-16.5 [facility] Comment on above: Order Comment: Garry cannon has been rescheduled by [employer] at 09/20/17 04:31. Reason:Failed attempt at venipuncture MCH 25.6 pg Low 26.0-35.0 [facility] Comment on above: Order Comment: Garry cannon has been rescheduled by [employer] at 09/20/17 04:31. Reason:Failed attempt at venipuncture MCHC mass conc (RBC) 30.4 % Low 32.0-34.5 [facility] Comment on above: Order Comment: Garry cannon has been rescheduled by [employer] at 09/20/17 04:31. Reason:Failed attempt at venipuncture MCV 84.2 fL Normal 80.0-99.9 [facility] Comment on above: Order Comment: Garry cannon has been rescheduled by [employer] at 09/20/17 04:31. Reason:Failed attempt at venipuncture Platelet mean volume (PMV) 10.2 fL Normal 7.0-12.0 [facility] Comment on above: Order Comment: Garry cannon has been rescheduled by [employer] at 09/20/17 04:31. Reason:Failed attempt at venipuncture Platelets 229 E9/L Normal 130-450 [facility] Comment on above: Order Comment: Garry cannon has been rescheduled by [employer] at 09/20/17 04:31. Reason:Failed attempt at venipuncture WBC (Leukocytes) 4.9 E9/L Normal 4.5-11.5 [facility] Comment on above: Order Comment: Garry cannon has been rescheduled by [employer] at 09/20/17 04:31. Reason:Failed attempt at venipuncture Erythrocyte distribution width Auto Ratio (RBC) 16.0 fL High 11.5-15.0 [facility] Comment on above: Order Comment: Garry cannon has been rescheduled by [facility] at 09/20/17 04:31. Reason:Failed attempt at venipuncture Erythrocytes (RBC) 3.50 E12/L Low 3.80-5.80 [facility] Comment on above: Order Comment: Garry cannon has been rescheduled by [facility] at 09/20/17 04:31. Reason:Failed attempt at venipuncture Hematocrit (HCT) 29.5 % Low 37.0-54.0 [facility] Comment on above: Order Comment: Garyr cannon has been rescheduled by [facility] at 09/20/17 04:31. Reason:Failed attempt at venipuncture Hemoglobin mass conc (Bld) 8.9 g/dL Low 12.5-16.5 [facility] Comment on above: Order Comment: Garry cannon has been rescheduled by [employer] at 09/20/17 04:31. Reason:Failed attempt at venipuncture MCH 25.4 pg Low 26.0-35.0 [facility] Comment on above: Order Comment: Garry cannon has been rescheduled by [facility] at 09/20/17 04:31. Reason:Failed attempt at venipuncture MCHC mass conc (RBC) 30.2 % Low 32.0-34.5 [facility] Comment on above: Order Comment: Garry cannon has been rescheduled by [facility] at 09/20/17 04:31. Reason:Failed attempt at venipuncture MCV 84.3 fL Normal 80.0-99.9 [facility] Comment on above: Order Comment: Garry cannon has been rescheduled by [facility] at 09/20/17 04:31. Reason:Failed attempt at venipuncture Platelet mean volume (PMV) 10.3 fL Normal 7.0-12.0 [facility] Comment on above: Order Comment: Garry cannon has been rescheduled by [facility] at 09/20/17 04:31. Reason:Failed attempt at venipuncture Platelets 224 E9/L Normal 130-450 [facility] Comment on above: Order Comment: Garry cannon has been rescheduled by [facility] at 09/20/17 04:31. Reason:Failed attempt at venipuncture WBC (Leukocytes) 5.0 E9/L Normal 4.5-11.5 [facility] Comment on above: Order Comment: Garry cannon has been rescheduled by [facility] at 09/20/17 04:31. Reason:Failed attempt at venipuncture Comprehensive Metabolic Pane daniel 09-20-2017 Alanine aminotransferase (ALT) 9 U/L Normal 0-40 [facility] Comment on above: Order Comment: Garry cannon has been rescheduled by [facility] at 09/20/17 04:31. Reason:Failed attempt at venipuncture Albumin 2.6 g/dL Low 3.5-5.2 [facility] Comment on above: Order Comment: Garry cannon has been rescheduled by [facility] at 09/20/17 04:31. Reason:Failed attempt at venipuncture Alkaline phosphatase (ALP) 52 U/L Normal 40-129 [facility] Comment on above: Order Comment: Garry cannon has been rescheduled by [facility] at 09/20/17 04:31. Reason:Failed attempt at venipuncture Anion gap 15 mmol/L Normal 7-16 [facility] Comment on above: Order Comment: Garry cannon has been rescheduled by [facility] at 09/20/17 04:31. Reason:Failed attempt at venipuncture Aspartate aminotransferase (AST) 15 U/L Normal 0-39 [facility] Comment on above: Order Comment: Garry cannon has been rescheduled by [facility] at 09/20/17 04:31. Reason:Failed attempt at venipuncture Bilirubin (total) mg/dL Normal 0.0-1.2 [facility] Comment on above: Order Comment: Garry cannon has been rescheduled by [facility]IS[facility] at 09/20/17 04:31. Reason:Failed attempt at venipuncture Calcium 8.6 mg/dL Normal 8.6-10.2 [facility] Comment on above: Order Comment: Garry cannon has been rescheduled by [facility] at 09/20/17 04:31. Reason:Failed attempt at venipuncture Chloride 104 mmol/L Normal 98-107 [facility] Comment on above: Order Comment: Garry cannon has been rescheduled by [facility] at 09/20/17 04:31. Reason:Failed attempt at venipuncture CO2 23 mmol/L Normal 22-29 [facility] Comment on above: Order Comment: Garry cannon has been rescheduled by [facility] at 09/20/17 04:31. Reason:Failed attempt at venipuncture Creatinine 1.0 mg/dL Normal 0.7-1.2 [facility] Comment on above: Order Comment: Garry cannon has been rescheduled by [facility] at 09/20/17 04:31. Reason:Failed attempt at venipuncture eGFR (black) mL/min/{1.73_m2} Normal [facility] Comment on above: Order Comment: Garry cannon has been rescheduled by [facility] at 09/20/17 04:31. Reason:Failed attempt at venipuncture eGFR (non-black) mL/min/{1.73_m2} Normal >=60 [facility] Comment on above: Order Comment: Garry cannon has been rescheduled by [facility]ISJE at 09/20/17 04:31. Reason:Failed attempt at venipuncture Result Comment: [employer] Operator jody Kidney Disease: less than 60 ml/min/1.73 sq.m. Kidney Failure: less than 15 ml/min/1.73 sq.m.Results valid for patients 18 years and older. Glucose mass conc 135 mg/dL High 74-109 [facility] Comment on above: Order Comment: Garry cannon has been rescheduled by [facility] at 09/20/17 04:31. Reason:Failed attempt at venipuncture Potassium molar conc 3.7 mmol/L Normal 3.5-5.0 [facility] Comment on above: Order Comment: Garry cannon has been rescheduled by [employer] at 09/20/17 04:31. Reason:Failed attempt at venipuncture Protein 5.9 g/dL Low 6.4-8.3 [facility] Comment on above: Order Comment: Garry cannon has been rescheduled by [facility] at 09/20/17 04:31. Reason:Failed attempt at venipuncture Sodium 142 mmol/L Normal 132-146 [facility] Comment on above: Order Comment: Garry cannon has been rescheduled by [facility] at 09/20/17 04:31. Reason:Failed attempt at venipuncture Urea nitrogen 7 mg/dL Low 8-23 [facility] Comment on above: Order Comment: Garry cannon has been rescheduled by [employer] at 09/20/17 04:31. Reason:Failed attempt at venipuncture Alanine aminotransferase (ALT) 9 U/L Normal 0-40 [facility] Comment on above: Order Comment: Garry cannon has been rescheduled by [facility] at 09/20/17 04:31. Reason:Failed attempt at venipuncture Albumin 2.5 g/dL Low 3.5-5.2 [facility] Comment on above: Order Comment: Garry cannon has been rescheduled by [employer] at 09/20/17 04:31. Reason:Failed attempt at venipuncture Alkaline phosphatase (ALP) 53 U/L Normal 40-129 [facility] Comment on above: Order Comment: Garry cannon has been rescheduled by [employer] at 09/20/17 04:31. Reason:Failed attempt at venipuncture Anion gap 13 mmol/L Normal 7-16 [facility] Comment on above: Order Comment: Garry cannon has been rescheduled by [facility] at 09/20/17 04:31. Reason:Failed attempt at venipuncture Aspartate aminotransferase (AST) 15 U/L Normal 0-39 [facility] Comment on above: Order Comment: Garry cannon has been rescheduled by [employer] at 09/20/17 04:31. Reason:Failed attempt at venipuncture Bilirubin (total) mg/dL Normal 0.0-1.2 [facility] Comment on above: Order Comment: Garry cannon has been rescheduled by [employer] at 09/20/17 04:31. Reason:Failed attempt at venipuncture Calcium 8.5 mg/dL Low 8.6-10.2 [facility] Comment on above: Order Comment: Garry cannon has been rescheduled by [employer] at 09/20/17 04:31. Reason:Failed attempt at venipuncture Chloride 106 mmol/L Normal 98-107 [facility] Comment on above: Order Comment: Garry cannon has been rescheduled by [employer] at 09/20/17 04:31. Reason:Failed attempt at venipuncture CO2 24 mmol/L Normal 22-29 [facility] Comment on above: Order Comment: Garry cannon has been rescheduled by [employer] at 09/20/17 04:31. Reason:Failed attempt at venipuncture Creatinine 1.0 mg/dL Normal 0.7-1.2 [facility] Comment on above: Order Comment: Garry cannon has been rescheduled by [employer] at 09/20/17 04:31. Reason:Failed attempt at venipuncture eGFR (black) mL/min/{1.73_m2} Normal [facility] Comment on above: Order Comment: Garry cannon has been rescheduled by [employer] at 09/20/17 04:31. Reason:Failed attempt at venipuncture eGFR (non-black) mL/min/{1.73_m2} Normal >=60 [facility] Comment on above: Order Comment: Garry cannon has been rescheduled by [employer] at 09/20/17 04:31. Reason:Failed attempt at venipuncture Result Comment: [employer] Operator jody Kidney Disease: less than 60 ml/min/1.73 sq.m. Kidney Failure: less than 15 ml/min/1.73 sq.m.Results valid for patients 18 years and older. Glucose mass conc 140 mg/dL High 74-109 [facility] Comment on above: Order Comment: Garry cannon has been rescheduled by KARLOS at 09/20/17 04:31. Reason:Failed attempt at venipuncture Potassium molar conc 3.7 mmol/L Normal 3.5-5.0 [facility] Comment on above: Order Comment: Garry cannon has been rescheduled by KARLOS at 09/20/17 04:31. Reason:Failed attempt at venipuncture Protein 5.7 g/dL Low 6.4-8.3 [facility] Comment on above: Order Comment: Garry cannon has been rescheduled by KARLOS at 09/20/17 04:31. Reason:Failed attempt at venipuncture Sodium 143 mmol/L Normal 132-146 [facility] Comment on above: Order Comment: Garry cannon has been rescheduled by VICKYSANTWAN at 09/20/17 04:31. Reason:Failed attempt at venipuncture Urea nitrogen 7 mg/dL Low 8-23 [facility] Comment on above: Order Comment: Garry cannon has been rescheduled by KARLOS at 09/20/17 04:31. Reason:Failed attempt at venipuncture Consulton 09-20-2017 HIM IP Note OR Composition Molder Normal [facility] Culture, Bloodon 09-20-2017 Culture, Blood Culture, Blood-: 5 Days- no growth Normal [facility] Culture, Blood 2on 7 Culture, Blood 2 Culture, Blood 2-: 5 Days- no growth Normal [facility] History and Physicalon 09-20 HIM IP Note OR Composition Molder Normal [facility] Progress Noteon 09-20-2017 HIM IP Note OR Composition Molder Normal [facility] HIM IP Note OR Composition Molder Normal [facility] Prothrombin Timeon 7 INR Coag RelTime (PPP) 1.4 {INR} Normal [facility] Comment on above: Order Comment: Garry cannon has been rescheduled by KARLOS at 09/20/17 04:31. Reason:Failed attempt at venipuncture Prothrombin time (PT) Coag time (PPP) 15.0 s High 9.3-12.4 [facility] Comment on above: Order Comment: Garry [...] =8 FTrimethoprim/Sulfamethoxaz ole R >=320 F Normal [facility] Plan of Careon 09-19-2017 HIM IP Note OR Composition Molder Normal [facility] Plan of Careon 08-29-2017 HIM IP Note OR Composition Molder Normal [facility] Progress Noteon 08-29-2017 HIM IP Note OR Composition Molder Normal [facility] HIM IP Note OR Composition Molder Normal [facility] Anesthesia Post-opon 017 HIM IP Note OR Composition Molder Normal [facility] Op Noteon 08-28-2017 HIM IP Note OR Composition Molder Normal [facility] Progress Noteon 08-28-2017 HIM IP Note OR Composition Molder Normal [facility] HIM IP Note OR Composition Molder Normal [facility] HIM IP Note OR Composition Molder Normal [facility] Anesthesia Post-opon 017 HIM IP Note OR Composition Molder Normal [facility] Plan of Careon 08-27-2017 HIM IP Note OR Composition Molder Normal [facility] HIM IP Note OR Composition Molder Normal [facility] HIM IP Note OR Composition Molder Normal [facility] Progress Noteon 08-27-2017 HIM IP Note OR Composition Molder Normal [facility] Plan of Careon 08-26-2017 HIM IP Note OR Composition Molder Normal [facility] HIM IP Note OR Composition Molder Normal [facility] HIM IP Note OR Composition Molder Normal [facility] HIM IP Note OR Composition Molder Normal [facility] Progress Noteon 08-26-2017 HIM IP Note OR Composition Molder Normal [facility] HIM IP Note OR Composition Molder Normal [facility] HIM IP Note OR Composition Molder Normal [facility] HIM IP Note OR Composition Molder Normal [facility] HIM IP Note OR Composition Molder Normal [facility] Plan of Careon 08-25-2017 HIM IP Note OR Composition Molder Normal [facility] HIM IP Note OR Composition Molder Normal [facility] HIM IP Note OR Composition Molder Normal [facility] Progress Noteon 08-25-2017 HIM IP Note OR Composition Molder Normal [facility] Plan of Careon 08-24-2017 HIM IP Note OR Composition Molder Normal [facility] Progress Noteon 08-24-2017 HIM IP Note OR Composition Molder Normal [facility] CBC With Platelet and Differ entialon 08-23-2017 Basophils Auto #/vol (Bld) 0.01 E9/L Normal 0.00-0.20 [facility] Basophils/100 WBC Auto (Bld) 0.2 % Normal 0.0-2.0 [facility] Eosinophils 0.35 E9/L Normal 0.05-0.50 [facility] Eosinophils/100 leukocytes 5.5 % Normal 0.0-6.0 [facility] Erythrocyte distribution width Auto Ratio (RBC) 15.1 fL High 11.5-15.0 [facility] Erythrocytes (RBC) 3.11 E12/L Low 3.80-5.80 [facility] Granulocytes/100 WBC (Bld) 0.5 % Normal 0.0-5.0 [facility] Granulocytes/100 WBC (Bld) 0.03 E9/L Normal [facility] Hematocrit (HCT) 25.9 % Low 37.0-54.0 [facility] Hemoglobin mass conc (Bld) 8.2 g/dL Low 12.5-16.5 [facility] Lymphocytes 1.57 E9/L Normal 1.50-4.00 [facility] Lymphocytes/100 leukocytes 24.5 % Normal 20.0-42.0 [facility] MCH 26.4 pg Normal 26.0-35.0 [facility] MCHC mass conc (RBC) 31.7 % Low 32.0-34.5 [facility] MCV 83.3 fL Normal 80.0-99.9 [facility] Monocytes 0.65 E9/L Normal 0.10-0.95 [facility] Monocytes/100 leukocytes 10.1 % Normal 2.0-12.0 [facility] Neutrophils 3.81 E9/L Normal 1.80-7.30 [facility] Neutrophils/100 leukocytes 59.2 % Normal 43.0-80.0 [facility] Platelet mean volume (PMV) 10.3 fL Normal 7.0-12.0 [facility] Platelets 255 E9/L Normal 130-450 [facility] WBC (Leukocytes) 6.4 E9/L Normal 4.5-11.5 [facility] Comprehensive Metabolic Pane daniel 08-23-2017 Alanine aminotransferase (ALT) 10 U/L Normal 0-40 [facility] Albumin 2.1 g/dL Low 3.5-5.2 [facility] Alkaline phosphatase (ALP) 61 U/L Normal 40-129 [facility] Anion gap 11 mmol/L Normal 7-16 [facility] Aspartate aminotransferase (AST) 15 U/L Normal 0-39 [facility] Bilirubin (total) 0.2 mg/dL Normal 0.0-1.2 [facility] Calcium 8.5 mg/dL Low 8.6-10.2 [facility] Chloride 101 mmol/L Normal 98-107 [facility] CO2 24 mmol/L Normal 22-29 [facility] Creatinine 1.0 mg/dL Normal 0.7-1.2 [facility] eGFR (black) mL/min/{1.73_m2} Normal [facility] eGFR (non-black) mL/min/{1.73_m2} Normal >=60 [facility] Comment on above: Result Comment: [employer] jody Kidney Disease: less than 60 ml/min/1.73 sq.m. Kidney Failure: less than 15 ml/min/1.73 sq.m.Results valid for patients 18 years and older. Glucose mass conc 87 mg/dL Normal 74-109 [facility] Potassium molar conc 3.8 mmol/L Normal 3.5-5.0 [facility] Protein 5.4 g/dL Low 6.4-8.3 [facility] Sodium 136 mmol/L Normal 132-146 [facility] Urea nitrogen 13 mg/dL Normal 8-23 [facility] Plan of Careon 08-23-2017 HIM IP Note OR Composition Molder Normal [facility] HIM IP Note OR Composition Molder Normal [facility] HIM IP Note OR Composition Molder Normal [facility] Progress Noteon 08-23-2017 HIM IP Note OR Composition Molder Normal [facility] HIM IP Note OR Composition Molder Normal [facility] HIM IP Note OR Composition Molder Normal [facility] CBC With Platelet and Differ entialon 08-22-2017 Basophils Auto #/vol (Bld) 0.02 E9/L Normal 0.00-0.20 [facility] Basophils/100 WBC Auto (Bld) 0.3 % Normal 0.0-2.0 [facility] Eosinophils 0.32 E9/L Normal 0.05-0.50 [facility] Eosinophils/100 leukocytes 4.7 % Normal 0.0-6.0 [facility] Erythrocyte distribution width Auto Ratio (RBC) 15.1 fL High 11.5-15.0 [facility] Erythrocytes (RBC) 3.36 E12/L Low 3.80-5.80 [facility] Granulocytes/100 WBC (Bld) 0.03 E9/L Normal [facility] Granulocytes/100 WBC (Bld) 0.4 % Normal 0.0-5.0 [facility] Hematocrit (HCT) 27.7 % Low 37.0-54.0 [facility] Hemoglobin mass conc (Bld) 9.1 g/dL Low 12.5-16.5 [facility] Lymphocytes 1.33 E9/L Low 1.50-4.00 [facility] Lymphocytes/100 leukocytes 19.7 % Low 20.0-42.0 [facility] MCH 27.1 pg Normal 26.0-35.0 [facility] MCHC mass conc (RBC) 32.9 % Normal 32.0-34.5 [facility] MCV 82.4 fL Normal 80.0-99.9 [facility] Monocytes 0.58 E9/L Normal 0.10-0.95 [facility] Monocytes/100 leukocytes 8.6 % Normal 2.0-12.0 [facility] Neutrophils 4.46 E9/L Normal 1.80-7.30 [facility] Neutrophils/100 leukocytes 66.3 % Normal 43.0-80.0 [facility] Platelet mean volume (PMV) 10.0 fL Normal 7.0-12.0 [facility] Platelets 260 E9/L Normal 130-450 [facility] WBC (Leukocytes) 6.7 E9/L Normal 4.5-11.5 [facility] Comprehensive Metabolic Pane daniel 08-22-2017 Alanine aminotransferase (ALT) 9 U/L Normal 0-40 [facility] Albumin 2.4 g/dL Low 3.5-5.2 [facility] Alkaline phosphatase (ALP) 66 U/L Normal 40-129 [facility] Anion gap 14 mmol/L Normal 7-16 [facility] Aspartate aminotransferase (AST) 12 U/L Normal 0-39 [facility] Bilirubin (total) 0.3 mg/dL Normal 0.0-1.2 [facility] Calcium 8.6 mg/dL Normal 8.6-10.2 [facility] Chloride 100 mmol/L Normal 98-107 [facility] CO2 24 mmol/L Normal 22-29 [facility] Creatinine 1.0 mg/dL Normal 0.7-1.2 [facility] eGFR (black) mL/min/{1.73_m2} Normal [facility] eGFR (non-black) mL/min/{1.73_m2} Normal >=60 [facility] Comment on above: Result Comment: [employer] jody Kidney Disease: less than 60 ml/min/1.73 sq.m. Kidney Failure: less than 15 ml/min/1.73 sq.m.Results valid for patients 18 years and older. Glucose mass conc 117 mg/dL High 74-109 [facility] Potassium molar conc 3.9 mmol/L Normal 3.5-5.0 [facility] Protein 6.0 g/dL Low 6.4-8.3 [facility] Sodium 138 mmol/L Normal 132-146 [facility] Urea nitrogen 7 mg/dL Low 8-23 [facility] Plan of Careon 08-22-2017 HIM IP Note OR Composition Molder Normal [facility] Progress Noteon 08-22-2017 HIM IP Note OR Composition Molder Normal [facility] HIM IP Note OR Composition Molder Normal [facility] CBC With Platelet and Differ entialon 08-21-2017 Basophils Auto #/vol (Bld) 0.01 E9/L Normal 0.00-0.20 [facility] Basophils/100 WBC Auto (Bld) 0.2 % Normal 0.0-2.0 [facility] Eosinophils 0.30 E9/L Normal 0.05-0.50 [facility] Eosinophils/100 leukocytes 5.1 % Normal 0.0-6.0 [facility] Erythrocyte distribution width Auto Ratio (RBC) 14.9 fL Normal 11.5-15.0 [facility] Erythrocytes (RBC) 3.26 E12/L Low 3.80-5.80 [facility] Granulocytes/100 WBC (Bld) 0.5 % Normal 0.0-5.0 [facility] Granulocytes/100 WBC (Bld) 0.03 E9/L Normal [facility] Hematocrit (HCT) 27.1 % Low 37.0-54.0 [facility] Hemoglobin mass conc (Bld) 8.7 g/dL Low 12.5-16.5 [facility] Lymphocytes 1.13 E9/L Low 1.50-4.00 [facility] Lymphocytes/100 leukocytes 19.2 % Low 20.0-42.0 [facility] MCH 26.7 pg Normal 26.0-35.0 [facility] MCHC mass conc (RBC) 32.1 % Normal 32.0-34.5 [facility] MCV 83.1 fL Normal 80.0-99.9 [facility] Monocytes 0.43 E9/L Normal 0.10-0.95 [facility] Monocytes/100 leukocytes 7.3 % Normal 2.0-12.0 [facility] Neutrophils 3.98 E9/L Normal 1.80-7.30 [facility] Neutrophils/100 leukocytes 67.7 % Normal 43.0-80.0 [facility] Platelet mean volume (PMV) 10.2 fL Normal 7.0-12.0 [facility] Platelets 205 E9/L Normal 130-450 [facility] WBC (Leukocytes) 5.9 E9/L Normal 4.5-11.5 [facility] Comprehensive Metabolic Pane daniel 08-21-2017 Alanine aminotransferase (ALT) 9 U/L Normal 0-40 [facility] Albumin 2.1 g/dL Low 3.5-5.2 [facility] Alkaline phosphatase (ALP) 60 U/L Normal 40-129 [facility] Anion gap 10 mmol/L Normal 7-16 [facility] Aspartate aminotransferase (AST) 11 U/L Normal 0-39 [facility] Bilirubin (total) 0.3 mg/dL Normal 0.0-1.2 [facility] Calcium 8.4 mg/dL Low 8.6-10.2 [facility] Chloride 100 mmol/L Normal 98-107 [facility] CO2 24 mmol/L Normal 22-29 [facility] Creatinine 0.9 mg/dL Normal 0.7-1.2 [facility] eGFR (black) mL/min/{1.73_m2} Normal [facility] eGFR (non-black) mL/min/{1.73_m2} Normal >=60 [facility] Comment on above: Result Comment: [employer] jody Kidney Disease: less than 60 ml/min/1.73 sq.m. Kidney Failure: less than 15 ml/min/1.73 sq.m.Results valid for patients 18 years and older. Glucose mass conc 116 mg/dL High 74-109 [facility] Potassium molar conc 4.1 mmol/L Normal 3.5-5.0 [facility] Protein 5.6 g/dL Low 6.4-8.3 [facility] Sodium 134 mmol/L Normal 132-146 [facility] Urea nitrogen 7 mg/dL Low 8-23 [facility] Plan of Careon 08-21-2017 HIM IP Note OR Composition Molder Normal [facility] HIM IP Note OR Composition Molder Normal [facility] HIM IP Note OR Composition Molder Normal [facility] Progress Noteon 08-21-2017 HIM IP Note OR Composition Molder Normal [facility] HIM IP Note OR Composition Molder Normal [facility] HIM IP Note OR Composition Molder Normal [facility] HIM IP Note OR Composition Molder Normal [facility] HIM IP Note OR Composition Molder Normal [facility] HIM IP Note OR Composition Molder Normal [facility] Comprehensive Metabolic Pane daniel 08-20-2017 Alanine aminotransferase (ALT) 13 U/L Normal 0-40 [facility] Comment on above: Result Comment: Spec imen is moderately Hemolyzed. Result may be artificially increased. Albumin 2.1 g/dL Low 3.5-5.2 [facility] Alkaline phosphatase (ALP) 64 U/L Normal 40-129 [facility] Comment on above: Result Comment: Spec imen is moderately Hemolyzed. Result may be artificially decreased. Anion gap 13 mmol/L Normal 7-16 [facility] Aspartate aminotransferase (AST) 38 U/L Normal 0-39 [facility] Comment on above: Result Comment: Spec imen is moderately Hemolyzed. Result may be artificially increased. Bilirubin (total) 0.3 mg/dL Normal 0.0-1.2 [facility] Calcium 8.4 mg/dL Low 8.6-10.2 [facility] Chloride 101 mmol/L Normal 98-107 [facility] CO2 21 mmol/L Low 22-29 [facility] Creatinine 0.8 mg/dL Normal 0.7-1.2 [facility] eGFR (black) mL/min/{1.73_m2} Normal [facility] eGFR (non-black) mL/min/{1.73_m2} Normal >=60 [facility] Comment on above: Result Comment: [employer] jody Kidney Disease: less than 60 ml/min/1.73 sq.m. Kidney Failure: less than 15 ml/min/1.73 sq.m.Results valid for patients 18 years and older. Glucose mass conc 125 mg/dL High 74-109 [facility] Potassium molar conc 4.7 mmol/L Normal 3.5-5.0 [facility] Comment on above: Result Comment: Spec rufino is moderately Hemolyzed. Result may be artificially increased. Protein 6.3 g/dL Low 6.4-8.3 [facility] Sodium 135 mmol/L Normal 132-146 [facility] Urea nitrogen 6 mg/dL Low 8-23 [facility] Plan of Careon 08-20-2017 HIM IP Note OR Composition Molder Normal [facility] CBC With Platelet and Differ entialon 08-19-2017 Basophils Auto #/vol (Bld) 0.02 E9/L Normal 0.00-0.20 [facility] Basophils/100 WBC Auto (Bld) 0.3 % Normal 0.0-2.0 [facility] Eosinophils 0.27 E9/L Normal 0.05-0.50 [facility] Eosinophils/100 leukocytes 4.0 % Normal 0.0-6.0 [facility] Erythrocyte distribution width Auto Ratio (RBC) 15.1 fL High 11.5-15.0 [facility] Erythrocytes (RBC) 3.01 E12/L Low 3.80-5.80 [facility] Granulocytes/100 WBC (Bld) 0.02 E9/L Normal [facility] Granulocytes/100 WBC (Bld) 0.3 % Normal 0.0-5.0 [facility] Hematocrit (HCT) 26.2 % Low 37.0-54.0 [facility] Hemoglobin mass conc (Bld) 8.0 g/dL Low 12.5-16.5 [facility] Lymphocytes 1.24 E9/L Low 1.50-4.00 [facility] Lymphocytes/100 leukocytes 18.2 % Low 20.0-42.0 [facility] MCH 26.6 pg Normal 26.0-35.0 [facility] MCHC mass conc (RBC) 30.5 % Low 32.0-34.5 [facility] MCV 87.0 fL Normal 80.0-99.9 [facility] Monocytes 0.47 E9/L Normal 0.10-0.95 [facility] Monocytes/100 leukocytes 6.9 % Normal 2.0-12.0 [facility] Neutrophils 4.78 E9/L Normal 1.80-7.30 [facility] Neutrophils/100 leukocytes 70.3 % Normal 43.0-80.0 [facility] Platelet mean volume (PMV) 10.0 fL Normal 7.0-12.0 [facility] Platelets 177 E9/L Normal 130-450 [facility] WBC (Leukocytes) 6.8 E9/L Normal 4.5-11.5 [facility] Comprehensive Metabolic Pane daniel 08-19-2017 Alanine aminotransferase (ALT) 10 U/L Normal 0-40 [facility] Albumin 2.3 g/dL Low 3.5-5.2 [facility] Alkaline phosphatase (ALP) 53 U/L Normal 40-129 [facility] Anion gap 13 mmol/L Normal 7-16 [facility] Aspartate aminotransferase (AST) 15 U/L Normal 0-39 [facility] Bilirubin (total) 0.3 mg/dL Normal 0.0-1.2 [facility] Calcium 8.2 mg/dL Low 8.6-10.2 [facility] Chloride 106 mmol/L Normal 98-107 [facility] CO2 21 mmol/L Low 22-29 [facility] Creatinine 0.9 mg/dL Normal 0.7-1.2 [facility] eGFR (black) mL/min/{1.73_m2} Normal [facility] eGFR (non-black) mL/min/{1.73_m2} Normal >=60 [facility] Comment on above: Result Comment: [employer] jody Kidney Disease: less than 60 ml/min/1.73 sq.m. Kidney Failure: less than 15 ml/min/1.73 sq.m.Results valid for patients 18 years and older. Glucose mass conc 101 mg/dL Normal 74-109 [facility] Potassium molar conc 4.1 mmol/L Normal 3.5-5.0 [facility] Protein 5.6 g/dL Low 6.4-8.3 [facility] Sodium 140 mmol/L Normal 132-146 [facility] Urea nitrogen 8 mg/dL Normal 8-23 [facility] Plan of Careon 08-19-2017 HIM IP Note OR Composition Molder Normal [facility] HIM IP Note OR Composition Molder Normal [facility] Progress Noteon 08-19-2017 HIM IP Note OR Composition Molder Normal [facility] HIM IP Note OR Composition Molder Normal [facility] Comprehensive Metabolic Pane daniel 08-18-2017 Alanine aminotransferase (ALT) 10 U/L Normal 0-40 [facility] Albumin 2.1 g/dL Low 3.5-5.2 [facility] Alkaline phosphatase (ALP) 50 U/L Normal 40-129 [facility] Anion gap 13 mmol/L Normal 7-16 [facility] Aspartate aminotransferase (AST) 16 U/L Normal 0-39 [facility] Bilirubin (total) 0.3 mg/dL Normal 0.0-1.2 [facility] Calcium 8.1 mg/dL Low 8.6-10.2 [facility] Chloride 104 mmol/L Normal 98-107 [facility] CO2 20 mmol/L Low 22-29 [facility] Creatinine 0.9 mg/dL Normal 0.7-1.2 [facility] eGFR (black) mL/min/{1.73_m2} Normal [facility] eGFR (non-black) mL/min/{1.73_m2} Normal >=60 [facility] Comment on above: Result Comment: [employer] jody Kidney Disease: less than 60 ml/min/1.73 sq.m. Kidney Failure: less than 15 ml/min/1.73 sq.m.Results valid for patients 18 years and older. Glucose mass conc 134 mg/dL High 74-109 [facility] Potassium molar conc 3.8 mmol/L Normal 3.5-5.0 [facility] Protein 5.6 g/dL Low 6.4-8.3 [facility] Sodium 137 mmol/L Normal 132-146 [facility] Urea nitrogen 15 mg/dL Normal 8-23 [facility] Plan of Careon 08-18-2017 HIM IP Note OR Composition Molder Normal [facility] HIM IP Note OR Composition Molder Normal [facility] Progress Noteon 08-18-2017 HIM IP Note OR Composition Molder Normal [facility] CBC With Platelet and Differ entialon 08-17-2017 Basophils Auto #/vol (Bld) 0.01 E9/L Normal 0.00-0.20 [facility] Basophils/100 WBC Auto (Bld) 0.1 % Normal 0.0-2.0 [facility] Eosinophils 0.00 E9/L Low 0.05-0.50 [facility] Eosinophils/100 leukocytes 0.0 % Normal 0.0-6.0 [facility] Erythrocyte distribution width Auto Ratio (RBC) 15.3 fL High 11.5-15.0 [facility] Erythrocytes (RBC) 3.53 E12/L Low 3.80-5.80 [facility] Granulocytes/100 WBC (Bld) 0.09 E9/L Normal [facility] Granulocytes/100 WBC (Bld) 0.7 % Normal 0.0-5.0 [facility] Hematocrit (HCT) 30.4 % Low 37.0-54.0 [facility] Hemoglobin mass conc (Bld) 9.5 g/dL Low 12.5-16.5 [facility] Lymphocytes 1.24 E9/L Low 1.50-4.00 [facility] Lymphocytes/100 leukocytes 9.4 % Low 20.0-42.0 [facility] MCH 26.9 pg Normal 26.0-35.0 [facility] MCHC mass conc (RBC) 31.3 % Low 32.0-34.5 [facility] MCV 86.1 fL Normal 80.0-99.9 [facility] Monocytes 0.83 E9/L Normal 0.10-0.95 [facility] Monocytes/100 leukocytes 6.3 % Normal 2.0-12.0 [facility] Neutrophils 11.09 E9/L High 1.80-7.30 [facility] Neutrophils/100 leukocytes 83.5 % High 43.0-80.0 [facility] Platelet mean volume (PMV) 10.0 fL Normal 7.0-12.0 [facility] Platelets 235 E9/L Normal 130-450 [facility] WBC (Leukocytes) 13.3 E9/L High 4.5-11.5 [facility] Comprehensive Metabolic Pane daniel 08-17-2017 Alanine aminotransferase (ALT) 10 U/L Normal 0-40 [facility] Albumin 2.4 g/dL Low 3.5-5.2 [facility] Alkaline phosphatase (ALP) 53 U/L Normal 40-129 [facility] Anion gap 17 mmol/L High 7-16 [facility] Aspartate aminotransferase (AST) 14 U/L Normal 0-39 [facility] Bilirubin (total) 0.3 mg/dL Normal 0.0-1.2 [facility] Calcium 8.3 mg/dL Low 8.6-10.2 [facility] Chloride 103 mmol/L Normal 98-107 [facility] CO2 17 mmol/L Low 22-29 [facility] Creatinine 1.1 mg/dL Normal 0.7-1.2 [facility] eGFR (black) mL/min/{1.73_m2} Normal [facility] eGFR (non-black) mL/min/{1.73_m2} Normal >=60 [facility] Comment on above: Result Comment: [employer] jody Kidney Disease: less than 60 ml/min/1.73 sq.m. Kidney Failure: less than 15 ml/min/1.73 sq.m.Results valid for patients 18 years and older. Glucose mass conc 140 mg/dL High 74-109 [facility] Potassium molar conc 4.4 mmol/L Normal 3.5-5.0 [facility] Protein 5.9 g/dL Low 6.4-8.3 [facility] Sodium 137 mmol/L Normal 132-146 [facility] Urea nitrogen 20 mg/dL Normal 8-23 [facility] Hemoglobin and Hematocriton 08-17-2017 Hematocrit (HCT) 33.7 % Low 37.0-54.0 [facility] Hemoglobin mass conc (Bld) 10.3 g/dL Low 12.5-16.5 [facility] Plan of Careon 08-17-2017 HIM IP Note OR Composition Molder Normal [facility] Progress Noteon 08-17-2017 HIM IP Note OR Composition Molder Normal [facility] HIM IP Note OR Composition Molder Normal [facility] CBC With Platelet and Differ entialon 08-16-2017 Basophils Auto #/vol (Bld) 0.02 E9/L Normal 0.00-0.20 [facility] Basophils/100 WBC Auto (Bld) 0.3 % Normal 0.0-2.0 [facility] Eosinophils 0.22 E9/L Normal 0.05-0.50 [facility] Eosinophils/100 leukocytes 3.2 % Normal 0.0-6.0 [facility] Erythrocyte distribution width Auto Ratio (RBC) 15.4 fL High 11.5-15.0 [facility] Erythrocytes (RBC) 3.95 E12/L Normal 3.80-5.80 [facility] Granulocytes/100 WBC (Bld) 0.02 E9/L Normal [facility] Granulocytes/100 WBC (Bld) 0.3 % Normal 0.0-5.0 [facility] Hematocrit (HCT) 35.1 % Low 37.0-54.0 [facility] Hemoglobin mass conc (Bld) 10.7 g/dL Low 12.5-16.5 [facility] Lymphocytes 1.51 E9/L Normal 1.50-4.00 [facility] Lymphocytes/100 leukocytes 21.7 % Normal 20.0-42.0 [facility] MCH 27.1 pg Normal 26.0-35.0 [facility] MCHC mass conc (RBC) 30.5 % Low 32.0-34.5 [facility] MCV 88.9 fL Normal 80.0-99.9 [facility] Monocytes 0.71 E9/L Normal 0.10-0.95 [facility] Monocytes/100 leukocytes 10.2 % Normal 2.0-12.0 [facility] Neutrophils 4.48 E9/L Normal 1.80-7.30 [facility] Neutrophils/100 leukocytes 64.3 % Normal 43.0-80.0 [facility] Platelet mean volume (PMV) 9.6 fL Normal 7.0-12.0 [facility] Platelets 211 E9/L Normal 130-450 [facility] WBC (Leukocytes) 7.0 E9/L Normal 4.5-11.5 [facility] Comprehensive Metabolic Pane daniel 08-16-2017 Alanine aminotransferase (ALT) 8 U/L Normal 0-40 [facility] Albumin 2.4 g/dL Low 3.5-5.2 [facility] Alkaline phosphatase (ALP) 60 U/L Normal 40-129 [facility] Anion gap 13 mmol/L Normal 7-16 [facility] Aspartate aminotransferase (AST) 14 U/L Normal 0-39 [facility] Bilirubin (total) 0.5 mg/dL Normal 0.0-1.2 [facility] Calcium 8.4 mg/dL Low 8.6-10.2 [facility] Chloride 104 mmol/L Normal 98-107 [facility] CO2 20 mmol/L Low 22-29 [facility] Creatinine 1.0 mg/dL Normal 0.7-1.2 [facility] eGFR (black) mL/min/{1.73_m2} Normal [facility] eGFR (non-black) mL/min/{1.73_m2} Normal >=60 [facility] Comment on above: Result Comment: [employer] jody Kidney Disease: less than 60 ml/min/1.73 sq.m. Kidney Failure: less than 15 ml/min/1.73 sq.m.Results valid for patients 18 years and older. Glucose mass conc 75 mg/dL Normal 74-109 [facility] Potassium molar conc 3.5 mmol/L Normal 3.5-5.0 [facility] Protein 6.2 g/dL Low 6.4-8.3 [facility] Sodium 137 mmol/L Normal 132-146 [facility] Urea nitrogen 9 mg/dL Normal 8-23 [facility] Consulton 08-16-2017 HIM IP Note OR Composition Molder Normal [facility] Plan of Careon 08-16-2017 HIM IP Note OR Composition Molder Normal [facility] HIM IP Note OR Composition Molder Normal [facility] HIM IP Note OR Composition Molder Normal [facility] HIM IP Note OR Composition Molder Normal [facility] Progress Noteon 08-16-2017 HIM IP Note OR Composition Molder Normal [facility] HIM IP Note OR Composition Molder Normal [facility] HIM IP Note OR Composition Molder Normal [facility] HIM IP Note OR Composition Molder Normal [facility] HIM IP Note OR Composition Molder Normal [facility] Surgical Specimenon 08-16-20 17 [facility] Spec[facility] [id number] [place] [id number] FINAL SURGICAL PATHOLOGY REPORTNAME: JAVIER JOHNSON Date of 08/16/2017 Collection:Medical Record [id number] Date of 08/19/2017Number: Receipt:Age: 72 Y Sex: M Date 08/21/2017 13:05 Reported:Date Of : 1945Financial [id number] Admitting MICHEAL ZAFARumber: Physician:Patient [id number] Ordering MICHEAL JOHNSONOFREocation: Physician:Accession Number: [id number]:A. Small bowel fistula, excision: Segment of small [...] Sectioning through the mesenteric adiposetissue is unremarkable. [employer] sections are submitted.Block labels:A1: tangential stapled marginA2-5: provider relations representative bowel.B. Part 2, labeled Javier Johnson, [...] propria, within the region of the fibrousadhesions, provider relations representative of a circumferential anastomosis site. Sites ofperforation or fistulous tracts are not appreciated. The bowel wallranges from 0.2 to 0.4 cm in thickness. Sectioning through the adherentfibrofatty tissue is unremarkable. Lymph nodes are not identified.[employer] sections are submitted.Block labels:B1-2: tangential surgical margins of resectionB3-4: apparent anastomosis siteB5-6: provider relations representative bowel. (IKE:IKE)CODES: [id number]; Department of Pathology Page 1 of 1 Normal [facility] Type and Screen Capture 3 sc rn cellon 08-16-2017 ABORH Capture Positive Normal [facility] Antibody 3 Cell Scrn Capture Negative Normal [facility] CBC With Platelet and Differ entialon 08-15-2017 Basophils Auto #/vol (Bld) 0.04 E9/L Normal 0.00-0.20 [facility] Basophils/100 WBC Auto (Bld) 0.4 % Normal 0.0-2.0 [facility] Eosinophils 0.21 E9/L Normal 0.05-0.50 [facility] Eosinophils/100 leukocytes 2.3 % Normal 0.0-6.0 [facility] Erythrocyte distribution width Auto Ratio (RBC) 15.6 fL High 11.5-15.0 [facility] Erythrocytes (RBC) 4.55 E12/L Normal 3.80-5.80 [facility] Granulocytes/100 WBC (Bld) 0.03 E9/L Normal [facility] Granulocytes/100 WBC (Bld) 0.3 % Normal 0.0-5.0 [facility] Hematocrit (HCT) 39.0 % Normal 37.0-54.0 [facility] Hemoglobin mass conc (Bld) 12.0 g/dL Low 12.5-16.5 [facility] Lymphocytes 1.85 E9/L Normal 1.50-4.00 [facility] Lymphocytes/100 leukocytes 20.5 % Normal 20.0-42.0 [facility] MCH 26.4 pg Normal 26.0-35.0 [facility] MCHC mass conc (RBC) 30.8 % Low 32.0-34.5 [facility] MCV 85.7 fL Normal 80.0-99.9 [facility] Monocytes 0.71 E9/L Normal 0.10-0.95 [facility] Monocytes/100 leukocytes 7.9 % Normal 2.0-12.0 [facility] Neutrophils 6.20 E9/L Normal 1.80-7.30 [facility] Neutrophils/100 leukocytes 68.6 % Normal 43.0-80.0 [facility] Platelet mean volume (PMV) 9.4 fL Normal 7.0-12.0 [facility] Platelets 275 E9/L Normal 130-450 [facility] WBC (Leukocytes) 9.0 E9/L Normal 4.5-11.[address] [facility] [address] ABDOMEN PELVIS W IV CONTR [...] by:LORIE Plascenciaigned by:Cristino Sterling MD08/15/17Final result Normal [facility] Comprehensive Metabolic Pane daniel 08-15-2017 Alanine aminotransferase (ALT) 10 U/L Normal 0-40 [facility] Albumin 3.4 g/dL Low 3.5-5.2 [facility] Alkaline phosphatase (ALP) 75 U/L Normal 40-129 [facility] Anion gap 16 mmol/L Normal 7-16 [facility] Aspartate aminotransferase (AST) 21 U/L Normal 0-39 [facility] Comment on above: Result Comment: Spec imen is slightly Hemolyzed. Result may be artificially increased. Bilirubin (total) 0.3 mg/dL Normal 0.0-1.2 [facility] Calcium 9.2 mg/dL Normal 8.6-10.2 [facility] Chloride 102 mmol/L Normal 98-107 [facility] CO2 23 mmol/L Normal 22-29 [facility] Creatinine 1.0 mg/dL Normal 0.7-1.2 [facility] eGFR (black) mL/min/{1.73_m2} Normal [facility] eGFR (non-black) mL/min/{1.73_m2} Normal >=60 [facility] Comment on above: Result Comment: [employer] jody Kidney Disease: less than 60 ml/min/1.73 sq.m. Kidney Failure: less than 15 ml/min/1.73 sq.m.Results valid for patients 18 years and older. Glucose mass conc 96 mg/dL Normal 74-109 [facility] Potassium molar conc 3.7 mmol/L Normal 3.5-5.0 [facility] Protein 7.8 g/dL Normal 6.4-8.3 [facility] Sodium 141 mmol/L Normal 132-146 [facility] Urea nitrogen 11 mg/dL Normal 8-23 [facility] Culture, Urineon 08-15-2017 Culture, Urine Culture, Urine-: Pilar pascla, Urine-: Raoultella ornithinolytica >100,000 CFU/ml -ORGANISM: Raoultella ornithinolytica ANTIBIOTIC INTERPRETATION M.I.C. STATUS [ S = SUSCEPTIBLE R = RESISTANT I = INTERMEDIATE ] Amox icillin/Clavulanate R >=32 FAmpicillin R >=32 FCefazolin R >=64 FCefepime S <=1 FCeftriaxone S <=1 FGentamicin S <=1 FImipenem S =1 FLevofloxacin S <=0.12 FNitrofurantoin R =128 FPiperacillin/Tazobactam S <=4 FTrimethoprim/Sulfamethoxaz ole R >=320 F Normal [facility] ED Noteon 08-15-2017 HIM IP Note OR Composition Molder Normal [facility] HIM IP Note OR Composition Molder Normal [facility] History and Physicalon 08-15 HIM IP Note OR Composition Molder Normal [facility] Lactic Acidon 08-15-2017 Lactate 1.6 mmol/L Normal 0.5-2.2 [facility] Lipaseon 08-15-2017 Lipase 39 U/L Normal 13-60 [facility] Op Noteon 08-15-2017 HIM IP Note OR Composition Molder Normal [facility] Partial Thromboplastin Timeo n 08-15-2017 aPTT 34.9 s Normal 24.5-35.1 [facility] Prothrombin Timeon 7 INR Coag RelTime (PPP) 1.7 {INR} Normal [facility] Prothrombin time (PT) Coag time (PPP) 18.4 s High 9.3-12.4 [facility] Urinalysis, reflex to micros copicon 08-15-2017 Bilirubin Ql (U) Negative Normal Negative [facility] Urine, clarity TURBID Abnormal Clear [facility] Urine, color Yellow Normal Straw/Yello w [facility] Urine, glucose presence Negative Normal Negative [facility] Urine, hemoglobin presence MODERATE Abnormal Negative [facility] Urine, ketones presence Negative Normal Negative [facility] Urine, leukocyte esterase presence SMALL Abnormal Negative [facility] Urine, nitrite presence Positive Abnormal Negative [facility] Urine, pH 8.5 [pH] Normal 5.0-9.0 [facility] Urine, protein presence TRACE Normal Negative [facility] Urine, specific gravity 1.010 Normal 1.005-1.030 [facility] Urine, urobilinogen 0.2 {Melina'U}/dL Normal < 2.0 [facility] Urine Microscopicon 08-15-20 17 Urine Amorphous FEW Normal [facility] Urine, bacteria in sediment MANY Abnormal [facility] Urine, crystals in sediment Moderate Normal [facility] Comment on above: Result Comment: CALC IUM OXALATE Urine, erythrocytes NONE Normal 0-2 [facility] Urine, leukocytes 1-3 Normal 0-5 [facility] CBC With Platelet and Differ entialon 08-02-2017 Basophils Auto #/vol (Bld) 0.02 E9/L Normal 0.00-0.20 [facility] Comment on above: Order Comment: 05:49 Basophils/100 WBC Auto (Bld) 0.4 % Normal 0.0-2.0 [facility] Comment on above: Order Comment: 05:49 Eosinophils 0.23 E9/L Normal 0.05-0.50 [facility] Comment on above: Order Comment: 05:49 Eosinophils/100 leukocytes 4.3 % Normal 0.0-6.0 [facility] Comment on above: Order Comment: 05:49 Erythrocyte distribution width Auto Ratio (RBC) 14.8 fL Normal 11.5-15.0 [facility] Comment on above: Order Comment: 05:49 Erythrocytes (RBC) 3.55 E12/L Low 3.80-5.80 [facility] Comment on above: Order Comment: 05:49 Granulocytes/100 WBC (Bld) 0.02 E9/L Normal [facility] Comment on above: Order Comment: 05:49 Granulocytes/100 WBC (Bld) 0.4 % Normal 0.0-5.0 [facility] Comment on above: Order Comment: 05:49 Hematocrit (HCT) 30.2 % Low 37.0-54.0 [facility] Comment on above: Order Comment: 05:49 Hemoglobin mass conc (Bld) 9.7 g/dL Low 12.5-16.5 [facility] Comment on above: Order Comment: 05:49 Lymphocytes 1.55 E9/L Normal 1.50-4.00 [facility] Comment on above: Order Comment: 05:49 Lymphocytes/100 leukocytes 28.9 % Normal 20.0-42.0 [facility] Comment on above: Order Comment: 05:49 MCH 27.3 pg Normal 26.0-35.0 [facility] Comment on above: Order Comment: 05:49 MCHC mass conc (RBC) 32.1 % Normal 32.0-34.5 [facility] Comment on above: Order Comment: 05:49 MCV 85.1 fL Normal 80.0-99.9 [facility] Comment on above: Order Comment: 05:49 Monocytes 0.60 E9/L Normal 0.10-0.95 [facility] Comment on above: Order Comment: 05:49 Monocytes/100 leukocytes 11.2 % Normal 2.0-12.0 [facility] Comment on above: Order Comment: 05:49 Neutrophils 2.95 E9/L Normal 1.80-7.30 [facility] Comment on above: Order Comment: 05:49 Neutrophils/100 leukocytes 54.8 % Normal 43.0-80.0 [facility] Comment on above: Order Comment: 05:49 Platelet mean volume (PMV) 10.2 fL Normal 7.0-12.0 [facility] Comment on above: Order Comment: 05:49 Platelets 196 E9/L Normal 130-450 [facility] Comment on above: Order Comment: 05:49 WBC (Leukocytes) 5.4 E9/L Normal 4.5-11.5 [facility] Comment on above: Order Comment: 05:49 Comprehensive Metabolic Pane daniel 08-02-2017 Alanine aminotransferase (ALT) 17 U/L Normal 0-40 [facility] Comment on above: Order Comment: 05:49 Albumin 2.3 g/dL Low 3.5-5.2 [facility] Comment on above: Order Comment: 05:49 Alkaline phosphatase (ALP) 61 U/L Normal 40-129 [facility] Comment on above: Order Comment: 05:49 Anion gap 12 mmol/L Normal 7-16 [facility] Comment on above: Order Comment: 05:49 Aspartate aminotransferase (AST) 24 U/L Normal 0-39 [facility] Comment on above: Order Comment: 05:49 Bilirubin (total) 0.3 mg/dL Normal 0.0-1.2 [facility] Comment on above: Order Comment: 05:49 Calcium 8.7 mg/dL Normal 8.6-10.2 [facility] Comment on above: Order Comment: 05:49 Chloride 102 mmol/L Normal 98-107 [facility] Comment on above: Order Comment: 05:49 CO2 26 mmol/L Normal 22-29 [facility] Comment on above: Order Comment: 05:49 Creatinine 1.0 mg/dL Normal 0.7-1.2 [facility] Comment on above: Order Comment: 05:49 eGFR (black) mL/min/{1.73_m2} Normal [facility] Comment on above: Order Comment: 05:49 eGFR (non-black) mL/min/{1.73_m2} Normal >=60 [facility] Comment on above: Order Comment: 05:49 Result Comment: [employer] jody Kidney Disease: less than 60 ml/min/1.73 sq.m. Kidney Failure: less than 15 ml/min/1.73 sq.m.Results valid for patients 18 years and older. Glucose mass conc 92 mg/dL Normal 74-109 [facility] Comment on above: Order Comment: 05:49 Potassium molar conc 3.3 mmol/L Low 3.5-5.0 [facility] Comment on above: Order Comment: 05:49 Protein 6.0 g/dL Low 6.4-8.3 [facility] Comment on above: Order Comment: 05:49 Sodium 140 mmol/L Normal 132-146 [facility] Comment on above: Order Comment: 05:49 Urea nitrogen 11 mg/dL Normal 8-23 [facility] Comment on above: Order Comment: 05:49 Discharge Summaryon 08-02-20 17 HIM IP Note OR Composition Molder Normal [facility] Progress Noteon 08-02-2017 HIM IP Note OR Composition Molder Normal [facility] HIM IP Note OR Composition Molder Normal [facility] CBC With Platelet and Differ entialon 08-01-2017 Basophils Auto #/vol (Bld) 0.02 E9/L Normal 0.00-0.20 [facility] Comment on above: Order Comment: 05:34 Basophils/100 WBC Auto (Bld) 0.4 % Normal 0.0-2.0 [facility] Comment on above: Order Comment: 05:34 Eosinophils 0.17 E9/L Normal 0.05-0.50 [facility] Comment on above: Order Comment: 05:34 Eosinophils/100 leukocytes 3.6 % Normal 0.0-6.0 [facility] Comment on above: Order Comment: 05:34 Erythrocyte distribution width Auto Ratio (RBC) 15.3 fL High 11.5-15.0 [facility] Comment on above: Order Comment: 05:34 Erythrocytes (RBC) 3.36 E12/L Low 3.80-5.80 [facility] Comment on above: Order Comment: 05:34 Granulocytes/100 WBC (Bld) 0.01 E9/L Normal [facility] Comment on above: Order Comment: 05:34 Granulocytes/100 WBC (Bld) 0.2 % Normal 0.0-5.0 [facility] Comment on above: Order Comment: 05:34 Hematocrit (HCT) 29.5 % Low 37.0-54.0 [facility] Comment on above: Order Comment: 05:34 Hemoglobin mass conc (Bld) 9.4 g/dL Low 12.5-16.5 [facility] Comment on above: Order Comment: 05:34 Lymphocytes 1.30 E9/L Low 1.50-4.00 [facility] Comment on above: Order Comment: 05:34 Lymphocytes/100 leukocytes 27.8 % Normal 20.0-42.0 [facility] Comment on above: Order Comment: 05:34 MCH 28.0 pg Normal 26.0-35.0 [facility] Comment on above: Order Comment: 05:34 MCHC mass conc (RBC) 31.9 % Low 32.0-34.5 [facility] Comment on above: Order Comment: 05:34 MCV 87.8 fL Normal 80.0-99.9 [facility] Comment on above: Order Comment: 05:34 Monocytes 0.48 E9/L Normal 0.10-0.95 [facility] Comment on above: Order Comment: 05:34 Monocytes/100 leukocytes 10.3 % Normal 2.0-12.0 [facility] Comment on above: Order Comment: 05:34 Neutrophils 2.70 E9/L Normal 1.80-7.30 [facility] Comment on above: Order Comment: 05:34 Neutrophils/100 leukocytes 57.7 % Normal 43.0-80.0 [facility] Comment on above: Order Comment: 05:34 Platelet mean volume (PMV) 10.3 fL Normal 7.0-12.0 [facility] Comment on above: Order Comment: 05:34 Platelets 172 E9/L Normal 130-450 [facility] Comment on above: Order Comment: 05:34 WBC (Leukocytes) 4.7 E9/L Normal 4.5-11.5 [facility] Comment on above: Order Comment: 05:34 Comprehensive Metabolic Pane daniel 08-01-2017 Alanine aminotransferase (ALT) 9 U/L Normal 0-40 [facility] Comment on above: Order Comment: 05:34 Albumin 2.3 g/dL Low 3.5-5.2 [facility] Comment on above: Order Comment: 05:34 Alkaline phosphatase (ALP) 59 U/L Normal 40-129 [facility] Comment on above: Order Comment: 05:34 Anion gap 12 mmol/L Normal 7-16 [facility] Comment on above: Order Comment: 05:34 Aspartate aminotransferase (AST) 15 U/L Normal 0-39 [facility] Comment on above: Order Comment: 05:34 Bilirubin (total) 0.2 mg/dL Normal 0.0-1.2 [facility] Comment on above: Order Comment: 05:34 Calcium 8.6 mg/dL Normal 8.6-10.2 [facility] Comment on above: Order Comment: 05:34 Chloride 101 mmol/L Normal 98-107 [facility] Comment on above: Order Comment: 05:34 CO2 24 mmol/L Normal 22-29 [facility] Comment on above: Order Comment: 05:34 Creatinine 1.2 mg/dL Normal 0.7-1.2 [facility] Comment on above: Order Comment: 05:34 eGFR (black) mL/min/{1.73_m2} Normal [facility] Comment on above: Order Comment: 05:34 eGFR (non-black) 60 mL/min/{1.73_m2} Normal >=60 [facility] Comment on above: Order Comment: 05:34 Result Comment: [employer] jody Kidney Disease: less than 60 ml/min/1.73 sq.m. Kidney Failure: less than 15 ml/min/1.73 sq.m.Results valid for patients 18 years and older. Glucose mass conc 82 mg/dL Normal 74-109 [facility] Comment on above: Order Comment: 05:34 Potassium molar conc 3.2 mmol/L Low 3.5-5.0 [facility] Comment on above: Order Comment: 05:34 Protein 5.9 g/dL Low 6.4-8.3 [facility] Comment on above: Order Comment: 05:34 Sodium 137 mmol/L Normal 132-146 [facility] Comment on above: Order Comment: 05:34 Urea nitrogen 12 mg/dL Normal 8-23 [facility] Comment on above: Order Comment: 05:34 Plan of Careon 08-01-2017 HIM IP Note OR Composition Molder Normal [facility] HIM IP Note OR Composition Molder Normal [facility] HIM IP Note OR Composition Molder Normal [facility] Progress Noteon 08-01-2017 HIM IP Note OR Composition Molder Normal [facility] HIM IP Note OR Composition Molder Normal [facility] CBC With Platelet and Differ entialon 07-31-2017 Basophils Auto #/vol (Bld) 0.01 E9/L Normal 0.00-0.20 [facility] Basophils/100 WBC Auto (Bld) 0.2 % Normal 0.0-2.0 [facility] Eosinophils 0.10 E9/L Normal 0.05-0.50 [facility] Eosinophils/100 leukocytes 1.9 % Normal 0.0-6.0 [facility] Erythrocyte distribution width Auto Ratio (RBC) 15.6 fL High 11.5-15.0 [facility] Erythrocytes (RBC) 3.45 E12/L Low 3.80-5.80 [facility] Granulocytes/100 WBC (Bld) 0.03 E9/L Normal [facility] Granulocytes/100 WBC (Bld) 0.6 % Normal 0.0-5.0 [facility] Hematocrit (HCT) 29.9 % Low 37.0-54.0 [facility] Hemoglobin mass conc (Bld) 9.3 g/dL Low 12.5-16.5 [facility] Lymphocytes 0.72 E9/L Low 1.50-4.00 [facility] Lymphocytes/100 leukocytes 13.6 % Low 20.0-42.0 [facility] MCH 27.0 pg Normal 26.0-35.0 [facility] MCHC mass conc (RBC) 31.1 % Low 32.0-34.5 [facility] MCV 86.7 fL Normal 80.0-99.9 [facility] Monocytes 0.49 E9/L Normal 0.10-0.95 [facility] Monocytes/100 leukocytes 9.3 % Normal 2.0-12.0 [facility] Neutrophils 3.93 E9/L Normal 1.80-7.30 [facility] Neutrophils/100 leukocytes 74.4 % Normal 43.0-80.0 [facility] Platelet mean volume (PMV) 10.1 fL Normal 7.0-12.0 [facility] Platelets 151 E9/L Normal 130-450 [facility] WBC (Leukocytes) 5.3 E9/L Normal 4.5-11.5 [facility] Comprehensive Metabolic Pane daniel 07-31-2017 Alanine aminotransferase (ALT) 6 U/L Normal 0-40 [facility] Albumin 2.3 g/dL Low 3.5-5.2 [facility] Alkaline phosphatase (ALP) 59 U/L Normal 40-129 [facility] Anion gap 13 mmol/L Normal 7-16 [facility] Aspartate aminotransferase (AST) 14 U/L Normal 0-39 [facility] Bilirubin (total) 0.3 mg/dL Normal 0.0-1.2 [facility] Calcium 8.2 mg/dL Low 8.6-10.2 [facility] Chloride 102 mmol/L Normal 98-107 [facility] CO2 24 mmol/L Normal 22-29 [facility] Creatinine 1.2 mg/dL Normal 0.7-1.2 [facility] eGFR (black) mL/min/{1.73_m2} Normal [facility] eGFR (non-black) 60 mL/min/{1.73_m2} Normal >=60 [facility] Comment on above: Result Comment: [employer] jody Kidney Disease: less than 60 ml/min/1.73 sq.m. Kidney Failure: less than 15 ml/min/1.73 sq.m.Results valid for patients 18 years and older. Glucose mass conc 88 mg/dL Normal 74-109 [facility] Potassium molar conc 3.4 mmol/L Low 3.5-5.0 [facility] Protein 5.8 g/dL Low 6.4-8.3 [facility] Sodium 139 mmol/L Normal 132-146 [facility] Urea nitrogen 14 mg/dL Normal 8-23 [facility] ED Noteon 07-31-2017 HIM IP Note OR Composition Molder Normal [facility] HIM IP Note OR Composition Molder Normal [facility] HIM IP Note OR Composition Molder Normal [facility] History and Physicalon 07-31 HIM IP Note OR Composition Molder Normal [facility] Progress Noteon 07-31-2017 HIM IP Note OR Composition Molder Normal [facility] HIM IP Note OR Composition Molder Normal [facility] HIM IP Note OR Composition Molder Normal [facility] HIM IP Note OR Composition Molder Normal [facility] XR CHEST PORTABLEon 07-31-20 17 XR CHEST [...] by:LORIE Hutchisonigned by:Geraldo Loyola MD07/30/17Final result Normal [facility] CBC With Platelet and Differ entialon 07-30-2017 Basophils Auto #/vol (Bld) 0.02 E9/L Normal 0.00-0.20 [facility] Basophils/100 WBC Auto (Bld) 0.2 % Normal 0.0-2.0 [facility] Eosinophils 0.18 E9/L Normal 0.05-0.50 [facility] Eosinophils/100 leukocytes 2.1 % Normal 0.0-6.0 [facility] Erythrocyte distribution width Auto Ratio (RBC) 15.4 fL High 11.5-15.0 [facility] Erythrocytes (RBC) 3.94 E12/L Normal 3.80-5.80 [facility] Granulocytes/100 WBC (Bld) 0.04 E9/L Normal [facility] Granulocytes/100 WBC (Bld) 0.5 % Normal 0.0-5.0 [facility] Hematocrit (HCT) 34.5 % Low 37.0-54.0 [facility] Hemoglobin mass conc (Bld) 10.7 g/dL Low 12.5-16.5 [facility] Lymphocytes 1.32 E9/L Low 1.50-4.00 [facility] Lymphocytes/100 leukocytes 15.7 % Low 20.0-42.0 [facility] MCH 27.2 pg Normal 26.0-35.0 [facility] MCHC mass conc (RBC) 31.0 % Low 32.0-34.5 [facility] MCV 87.6 fL Normal 80.0-99.9 [facility] Monocytes 0.59 E9/L Normal 0.10-0.95 [facility] Monocytes/100 leukocytes 7.0 % Normal 2.0-12.0 [facility] Neutrophils 6.26 E9/L Normal 1.80-7.30 [facility] Neutrophils/100 leukocytes 74.5 % Normal 43.0-80.0 [facility] Platelet mean volume (PMV) 10.4 fL Normal 7.0-12.0 [facility] Platelets 182 E9/L Normal 130-450 [facility] WBC (Leukocytes) 8.4 E9/L Normal 4.5-11.[address] [facility] [address] ABDOMEN PELVIS W IV CONTR [...] multiphase contrast study or even MRI in hospital [facility] will be recommended to evaluate this lobulated, [...] cystectomy.Case discussed with Dr. An, physician in [place], at the timeof the interpretation.Interpreted by:LORIE Hutchisonigned by:Geraldo Loyola MD07/30/17Final result Normal [facility] Comprehensive Metabolic Pane daniel 07-30-2017 Alanine aminotransferase (ALT) 7 U/L Normal 0-40 [facility] Albumin 3.0 g/dL Low 3.5-5.2 [facility] Alkaline phosphatase (ALP) 68 U/L Normal 40-129 [facility] Anion gap 13 mmol/L Normal 7-16 [facility] Aspartate aminotransferase (AST) 13 U/L Normal 0-39 [facility] Bilirubin (total) 0.3 mg/dL Normal 0.0-1.2 [facility] Calcium 9.4 mg/dL Normal 8.6-10.2 [facility] Chloride 95 mmol/L Low 98-107 [facility] CO2 27 mmol/L Normal 22-29 [facility] Creatinine 1.2 mg/dL Normal 0.7-1.2 [facility] eGFR (black) mL/min/{1.73_m2} Normal [facility] eGFR (non-black) 60 mL/min/{1.73_m2} Normal >=60 [facility] Comment on above: Result Comment: [employer] Operator jody Kidney Disease: less than 60 ml/min/1.73 sq.m. Kidney Failure: less than 15 ml/min/1.73 sq.m.Results valid for patients 18 years and older. Glucose mass conc 129 mg/dL High 74-109 [facility] Potassium molar conc 2.8 mmol/L Low 3.5-5.0 [facility] Protein 6.8 g/dL Normal 6.4-8.3 [facility] Sodium 135 mmol/L Normal 132-146 [facility] Urea nitrogen 18 mg/dL Normal 8-23 [facility] Culture, Bloodon 07-30-2017 Culture, Blood Culture, Blood-: 5 Days- no growth Normal [facility] Culture, Blood 2on 7 Culture, Blood 2 Culture, Blood 2-: 5 Days- no growth Normal [facility] Culture, Urineon 07-30-2017 Culture, Urine Culture, Urine-: Growth not present Normal [facility] Culture, Wound Aerobicon Culture, Wound Aerobic Culture, Wound Aerobic-: Mixed daly isolated. Further workup and sensitivity testing is not routinely indicated and will not be performed. Mixed daly isolated includes: Mixed Gram negative rods Gram positive cocci Normal [facility] ED Noteon 07-30-2017 HIM IP Note OR Composition Molder Normal [facility] HIM IP Note OR Composition Molder Normal [facility] ED Provider Noteon 7 HIM IP Note OR Composition Molder Normal [facility] Lactic Acidon 07-30-2017 Lactate 1.0 mmol/L Normal 0.5-2.2 [facility] Lipaseon 07-30-2017 Lipase 27 U/L Normal 13-60 [facility] Urinalysis, reflex to micros copicon 07-30-2017 Bilirubin Ql (U) Negative Normal Negative [facility] Urine, color Yellow Normal Straw/Yello w [facility] Urine, glucose presence Negative Normal Negative [facility] Urine, hemoglobin presence MODERATE Abnormal Negative [facility] Urine, ketones presence Negative Normal Negative [facility] Urine, leukocyte esterase presence SMALL Abnormal Negative [facility] Urine, nitrite presence Negative Normal Negative [facility] Urine, pH 6.5 [pH] Normal 5.0-9.0 [facility] Urine, protein presence TRACE Normal Negative [facility] Urine, specific gravity 1.015 Normal 1.005-1.030 [facility] Urine, urobilinogen 0.2 {Melina'U}/dL Normal < 2.0 [facility] Urine, clarity SL CLOUDY Normal Clear [facility] Urine Microscopicon 07-30-20 17 Urine, bacteria in sediment NONE Normal [facility] Urine, erythrocytes 5-10 Abnormal 0-2 [facility] Urine, leukocytes /uL Normal 0-5 [facility] Bacteria identified Anaer cx Nom (Unsp spec) Anaerobic Culture Anaerobic cocci [facility] Work Phone: Bacteria identified Cx Nom ( Wound) Wound Culture Escherichia coli [facility] Work Phone: Wound Culture Proteus mirabilis [facility] Work Phone: Wound Culture Staphylococcus epidermidis [facility] Work Phone: Wound Culture Corynebacterium amycolatum [facility] Work Phone: Culture, urine Bacteria identified Cx Nom (U) Escherichia coli [facility] Work Phone: Gram stain for investigation of transfusion reaction Microscopic observation Gram stain Nom (Unsp spec) [facility] Work Phone: Laboratory - Microbiology an d Antimicrobial susceptibility Bacteria identified Cx Nom (Bld) No growth in 5 days. [facility] Work Phone: Vital Signs Date Time Vital Sign Value Performing Clinician Facility 10-23-2022 13:42-0500 Body height 170.2 cm Season Lian ROBERTS.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 Work Phone: [facility] 10-23-2022 13:42-0500 Body temperature 97.59 [degF] Season Lian SANTIAGO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 Work Phone: [facility] 10-23-2022 13:42-0500 Body weight 77.56 kg Season Lian ROBERTS.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 Work Phone: [facility] 10-23-2022 13:42-0500 Diastolic blood pressure 80 mm[Hg] Season Lian SANTIAGO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 Work Phone: [facility] 10-23-2022 13:42-0500 Heart rate 82 /min Season Lian SANTIAGO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 Work Phone: [facility] 10-23-2022 13:42-0500 Respiratory rate 12 /min Season Rosenau ECONOMICS ANALYST.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 Work Phone: [facility] 10-23-2022 13:42-0500 SaO2% (BldA) [Mass fraction] 98 % Season Lian ROBERTS.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 Work Phone: [facility] 10-23-2022 13:42-0500 Systolic blood pressure 160 mm[Hg] Season Lian HOYOSN.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 Work Phone: [facility] 08-30-2022 15:00-0500 Body height 172.6 cm Pulm 8 [facility] 08-30-2022 15:00-0500 Body weight 78.4 kg Pulm 8 [facility] 08-30-2022 12:30-0500 Body temperature 97.39 [degF] Afia Cisneros MD, PhD Work Phone: [facility] 08-30-2022 12:30-0500 Diastolic blood pressure 71 mm[Hg] Afia Cisneros MD, PhD Work Phone: [facility] 08-30-2022 12:30-0500 Heart rate 67 /min Afia Cisneros MD, PhD Work Phone: [facility] 08-30-2022 12:30-0500 Respiratory rate 12 /min Afia Cisneros MD, PhD Work Phone: [facility] 08-30-2022 12:30-0500 SaO2% (BldA) [Mass fraction] 100 % Afia Cisneros MD, PhD Work Phone: [facility] 08-30-2022 12:30-0500 Systolic blood pressure 145 mm[Hg] Afia Cisneros MD, PhD Work Phone: [facility] 08-30-2022 11:00-0500 Body height 171.6 cm Pulm J-2 [facility] 08-30-2022 11:00-0500 Body weight 78 kg Pulm J-2 [facility] 08-17-2022 11:30-0500 Diastolic blood pressure 88 mm[Hg] Dr. Nataliya Avila Work Phone: [facility] 08-17-2022 11:30-0500 Heart rate 61 /min Dr. Nataliya Avila Work Phone: [facility] 08-17-2022 11:30-0500 Respiratory rate 20 /min Dr. Nataliya Avila Work Phone: [facility] 08-17-2022 11:30-0500 SaO2% (BldA) [Mass fraction] 98 % Dr. Nataliya Avila Work Phone: [facility] 08-17-2022 11:30-0500 Systolic blood pressure 138 mm[Hg] Dr. Nataliya Avila Work Phone: [facility] 08-17-2022 08:16-0500 Body height 172.[address] Nataliya Avila Work Phone: [facility] 08-17-2022 08:16-0500 Body mass index (BMI) [Ratio] 25.8 kg/m2 Dr. Nataliya Avila Work Phone: [facility] 08-17-2022 08:16-0500 Body temperature 97.9 [degF] Dr. Nataliya Avila Work Phone: [facility] 08-17-2022 08:16-0500 Body weight 77.[address] Nataliya Avila Work Phone: [facility] 07-06-2022 13:18-0400 Body temperature 98.2 [degF] Kinsey Hardy RN Work Phone: [facility] 07-06-2022 13:18-0400 Diastolic blood pressure 74 mm[Hg] Kinsey Hardy RN Work Phone: [facility] 07-06-2022 13:18-0400 Heart rate 64 /min Kinseyrobert Hardy RN Work Phone: [facility] 07-06-2022 13:18-0400 Respiratory rate 20 /min Kinsey Hardy RN Work Phone: [facility] 07-06-2022 13:18-0400 SaO2% (BldA) [Mass fraction] 99 % Kinsey Hardy RN Work Phone: [facility] 07-06-2022 13:18-0400 Systolic blood pressure 126 mm[Hg] Kinsey Hardy RN Work Phone: [facility] 06-27-2022 17:57-0400 Diastolic blood pressure 67 mm[Hg] Imelda Morris MD Work Phone: [facility] 06-27-2022 17:57-0400 Heart rate 61 /min Imelda Morris MD Work Phone: [facility] 06-27-2022 17:57-0400 Respiratory rate 20 /min Imelda Morris MD Work Phone: [facility] 06-27-2022 17:57-0400 SaO2% (BldA) [Mass fraction] 99 % Imelda Morris MD Work Phone: [facility] 06-27-2022 17:57-0400 Systolic blood pressure 156 mm[Hg] Imelda Morris MD Work Phone: [facility] 06-27-2022 17:24-0400 Body temperature 97.7 [degF] Imelda Morris MD Work Phone: [facility] 06-27-2022 13:51-0400 Body height 172.7 cm Imelda Morris MD Work Phone: [facility] 06-27-2022 13:51-0400 Body weight 77.56 kg Imelda Morris MD Work Phone: [facility] 06-21-2022 14:30-0400 Body temperature 98.1 [degF] Kinsey Hardy RN Work Phone: [facility] 06-21-2022 14:30-0400 Diastolic blood pressure 76 mm[Hg] Kinsey Hardy RN Work Phone: [facility] 06-21-2022 14:30-0400 Heart rate 68 /min Kinsey Hardy RN Work Phone: [facility] 06-21-2022 14:30-0400 Respiratory rate 16 /min Kinsey Most RN Work Phone: [facility] 06-21-2022 14:30-0400 SaO2% (BldA) [Mass fraction] 99 % Kinsey Most RN Work Phone: [facility] 06-21-2022 14:30-0400 Systolic blood pressure 122 mm[Hg] Kinsey Most RN Work Phone: [facility] 06-14-2022 15:14-0400 Body temperature 98.1 [degF] Kinsey Most RN Work Phone: [facility] 06-14-2022 15:14-0400 Diastolic blood pressure 74 mm[Hg] Kinsey Most RN Work Phone: [facility] 06-14-2022 15:14-0400 Heart rate 68 /min Kinsey Most RN Work Phone: [facility] 06-14-2022 15:14-0400 Respiratory rate 16 /min Kinsey Most RN Work Phone: [facility] 06-14-2022 15:14-0400 SaO2% (BldA) [Mass fraction] 99 % Kinsey Most RN Work Phone: [facility] 06-14-2022 15:14-0400 Systolic blood pressure 130 mm[Hg] Kinsey Most RN Work Phone: [facility] 06-07-2022 13:30-0400 Body height 172.7 cm Carri Osorio ECONOMICS ANALYST.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 Work Phone: [facility] 06-07-2022 13:30-0400 Body weight 77.75 kg Carri Osorio ECONOMICS ANALYST.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 Work Phone: [facility] 05-30-2022 15:05-0400 Body temperature 98.49 [degF] Kinsey Most RN Work Phone: [facility] 05-30-2022 15:05-0400 Diastolic blood pressure 66 mm[Hg] Kinsey Most RN Work Phone: [facility] 05-30-2022 15:05-0400 Heart rate 76 /min Kinsey Hardy RN Work Phone: [facility] 05-30-2022 15:05-0400 Respiratory rate 16 /min Kinsey Most RN Work Phone: [facility] 05-30-2022 15:05-0400 SaO2% (BldA) [Mass fraction] 97 % Kinseyrobert Hardy RN Work Phone: [facility] 05-30-2022 15:05-0400 Systolic blood pressure 120 mm[Hg] Kinseyrobert Hardy RN Work Phone: [facility] 05-23-2022 14:11-0400 Body temperature 98.01 [degF] Rima King RN Work Phone: [facility] 05-23-2022 14:11-0400 Body weight 75.07 kg Rima King RN Work Phone: [facility] 05-23-2022 14:11-0400 Diastolic blood pressure 68 mm[Hg] Rima King RN Work Phone: [facility] 05-23-2022 14:11-0400 Heart rate 66 /min Rima King RN Work Phone: [facility] 05-23-2022 14:11-0400 Respiratory rate 18 /min Rima King RN Work Phone: [facility] 05-23-2022 14:11-0400 SaO2% (BldA) [Mass fraction] 97 % Rima King RN Work Phone: [facility] 05-23-2022 14:11-0400 Systolic blood pressure 147 mm[Hg] Rima King RN Work Phone: [facility] 05-18-2022 06:32-0400 Body temperature 97.8 [degF] Dr. Nataliya Avila Work Phone: [facility] Work Phone: 05-18-2022 06:32-0400 Diastolic blood pressure 78 mm[Hg] Dr. Nataliya Avila Work Phone: [facility] Work Phone: 05-18-2022 06:32-0400 Heart rate 64 /min Dr. Nataliya Avila Work Phone: [facility] Work Phone: 05-18-2022 06:32-0400 Respiratory rate 16 /min Dr. Nataliya Avila Work Phone: [facility] Work Phone: 05-18-2022 06:32-0400 SaO2% (BldA) [Mass fraction] 98 % Dr. Nataliya Avila Work Phone: [facility] Work Phone: 05-18-2022 06:32-0400 Systolic blood pressure 132 mm[Hg] Dr. Nataliya Avila Work Phone: [facility] Work Phone: 05-18-2022 06:00-0400 Body weight 77.[address] Nataliya Avila Work Phone: [facility] Work Phone: 05-17-2022 10:24-0400 Body height [address] Nataliya Avila Work Phone: [facility] Work Phone: 05-13-2022 23:33-0400 Body mass index (BMI) [Ratio] 25.5 kg/m2 Dr. Nataliya Avila Work Phone: [facility] Work Phone: 05-13-2022 22:13-0400 Body temperature 98.4 [degF] [facility] Work Phone: 05-13-2022 22:13-0400 Diastolic blood pressure 78 mm[Hg] [facility] Work Phone: 05-13-2022 22:13-0400 Heart rate 78 /min [facility] Work Phone: 05-13-2022 22:13-0400 Respiratory rate 20 /min [facility] Work Phone: 05-13-2022 22:13-0400 SaO2% (BldA) [Mass fraction] 98 % [facility] Work Phone: 05-13-2022 22:13-0400 Systolic blood pressure 124 mm[Hg] [facility] Work Phone: 05-13-2022 13:30-0400 Body height 172.72 cm [facility] Work Phone: 05-13-2022 13:30-0400 Body mass index (BMI) [Ratio] 27.3 kg/m2 [facility] Work Phone: 05-13-2022 13:30-0400 Body weight 81.7 kg [facility] Work Phone: 04-18-2022 08:07-0400 Body height 172.7 cm Pacc 4 Work Phone: [facility] 04-18-2022 08:07-0400 Body temperature 97.59 [degF] Pacc 4 Work Phone: [facility] 04-18-2022 08:07-0400 Body weight 82.42 kg Pacc 4 Work Phone: [facility] 04-18-2022 08:07-0400 Diastolic blood pressure 74 mm[Hg] Pacc 4 Work Phone: [facility] 04-18-2022 08:07-0400 Heart rate 62 /min Pacc 4 Work Phone: [facility] 04-18-2022 08:07-0400 SaO2% (BldA) [Mass fraction] 100 % Pacc 4 Work Phone: [facility] 04-18-2022 08:07-0400 Systolic blood pressure 155 mm[Hg] Pacc 4 Work Phone: [facility] 04-10-2022 09:38-0400 Body height 172.7 cm John Mullins MD Work Phone: [facility] 04-10-2022 09:38-0400 Body weight 81.65 kg John Mullins MD Work Phone: [facility] 03-21-2022 10:30-0400 Body weight 82.1 kg Jose Deluna MD Work Phone: [facility] 03-21-2022 10:30-0400 Diastolic blood pressure 76 mm[Hg] Jose Deluna MD Work Phone: [facility] 03-21-2022 10:30-0400 Heart rate 65 /min Jose Deluna MD Work Phone: [facility] 03-21-2022 10:30-0400 Systolic blood pressure 133 mm[Hg] Jose Deluna MD Work Phone: [facility] 01-18-2022 07:32-0400 Body height 172.7 cm Melly Michele MD Work Phone: [facility] 01-18-2022 07:32-0400 Body temperature 97.39 [degF] Melly Michele MD Work Phone: [facility] 01-18-2022 07:32-0400 Body weight 85.28 kg Melly Michele MD Work Phone: [facility] 01-18-2022 07:32-0400 Diastolic blood pressure 73 mm[Hg] Melly Michele MD Work Phone: [facility] 01-18-2022 07:32-0400 Heart rate 80 /min Melly Michele MD Work Phone: [facility] 01-18-2022 07:32-0400 SaO2% (BldA) [Mass fraction] 99 % Melly Michele MD Work Phone: [facility] 01-18-2022 07:32-0400 Systolic blood pressure 148 mm[Hg] Melly Michele MD Work Phone: [facility] Encounters Encounter Date Encounter Type Care Provider Facility Start: 10-16-2024 End: 10-16-2024 ambulatory RADHA BEAL Facility:[facility] Start: 10-16-2024 End: 10-16-2024 Patient encounter procedure Season Froilan Beal APRN.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 Work Phone: [facility] Comment on above: Malignant neoplasm o f unspecified part of unspecified bronchus or lung (HCC) (Primary Dx) Start: 10-16-2024 End: 10-16-2024 Telemedicine consultation with patient Season Froilan Lian ROBERTS.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 Work Phone: [facility] Start: 10-15-2024 End: 10-15-2024 ambulatory TERRELL EVANS Facility:[facility] Start: 10-15-2024 End: 10-15-2024 Subsequent hospital visit by physician [facility] Work Phone: Cat Scan Comment on above: Malignant neoplasm o f unspecified part of unspecified bronchus or lung (HCC) [C34.90] Start: 06-19-2024 End: 06-19-2024 ambulatory [facility] Facility:[facility] Start: 04-15-2024 End: 04-15-2024 ambulatory TERRELL EVANS Facility:[facility] Start: 04-15-2024 End: 04-15-2024 Patient encounter procedure Season Froilan Lian ROBERTS.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 Work Phone: [facility] Comment on above: Malignant neoplasm o f unspecified part of unspecified bronchus or lung (HCC) (Primary Dx) Start: 04-15-2024 End: 04-15-2024 Telemedicine consultation with patient Season Froilan Lian ROBERTS.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 Work Phone: [facility] Start: 04-13-2024 End: 04-13-2024 ambulatory TERRELL EVANS Facility:[facility] Start: 04-13-2024 End: 04-13-2024 Subsequent hospital visit by physician [facility] ([facility]) Work Phone: Cat Scan Comment on above: Malignant neoplasm o f unspecified part of unspecified bronchus or lung (HCC) [C34.90] Start: 03-07-2023 End: 03-07-2023 Subsequent hospital visit by physician [facility] ([facility]) Work Phone: Cat Scan Comment on above: Malignant neoplasm o f unspecified part of unspecified bronchus or lung (HCC) [C34.90] Start: 12-05-2022 End: 12-05-2022 ambulatory Season Froilan Beal APRN.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 Work Phone: [facility] Comment on above: Malignant neoplasm o f unspecified part of unspecified bronchus or lung (HCC) (Primary Dx) Start: 12-05-2022 End: 12-05-2022 Telemedicine consultation with patient Radha Mcgovern Lian ROBERTS.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 Work Phone: [facility] Start: 12-04-2022 End: 12-04-2022 Subsequent hospital visit by physician Xr [facility] Work Phone: Radiology Comment on above: Malignant neoplasm o f lower lobe of left lung (HCC) [C34.32] Start: 11-08-2022 End: 11-08-2022 ambulatory [facility] Work Phone: Start: 11-08-2022 End: 11-08-2022 Patient encounter procedure [facility]Laboratory, Specimen Start: 10-26-2022 End: 10-26-2022 ambulatory [facility] Work Phone: Start: 10-26-2022 End: 10-26-2022 Patient encounter procedure [facility], Specimen Start: 10-23-2022 End: 10-23-2022 Patient [...] encounter procedure Pulm Fct Lab J-2 [facility] Comment on above: Lung nodule (Primary Dx) Start: 08-17-2022 End: 08-17-[address] Nataliya Avila Work Phone: [facility] Work Phone: Start: 08-17-2022 End: 08-17-[address] Nataliya Avila Work Phone: [facility]-Cat Scan, [facility] Start: 07-06-2022 End: 07-06-2022 Home visit Kinsey Hardy RN Work Phone: [facility] Comment on above: SN AGENCY DC W VISIT Start: 07-04-2022 End: 07-04-2022 Home visit Ayo Sorenson RN Work Phone: [facility] Comment on above: CARE COORDINATION Start: 07-04-2022 Telephone encounter Ayo Lo RN Work Phone: [facility] Comment on above: Home Care (Need for continued HH orders) Start: 06-29-2022 Telephone encounter Karson Merino MD Work Phone: Pulmonary Medicine Comment on above: Results Start: 06-27-2022 End: 06-27-2022 Subsequent hospital visit by physician Imelda Morris MD Work Phone: Admitting Comment on above: Bronchiolar disease [J98.09] Start: 06-22-2022 Chart abstracting Jessica Key RN Admitting Start: 06-21-2022 End: 06-21-2022 Home visit Kinesy Hardy RN Work Phone: [facility] Comment on above: SN ROUTINE Start: 06-20-2022 [facility] Ad[facility] Comment on above: pre op [...] Home visit Kinsey Hardy RN Work Phone: [facility] Comment on above: SN ROUTINE Start: 06-08-2022 End: 06-08-2022 Home visit Aoy Sorenson RN Work Phone: [facility] Comment on above: SN UNMADE VISIT Start: 06-08-2022 Telephone encounter Ayo Lo RN Work Phone: [facility] Comment on above: Home Care (error) Start: 06-07-2022 End: 06-07-2022 Nursing evaluation of patient and report [facility] Work Phone: Colorectal Surgery Comment on above: Encounter for attent ion to ileostomy (HCC) (Primary Dx) Start: 06-07-2022 End: 06-07-2022 Patient encounter procedure Carri Osorio APRN.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 Work Phone: Colorectal Surgery Comment on above: Postoperative state (Primary Dx) Start: 06-03-2022 Home visit Annmarie kevin RN Work Phone: [facility] Comment on above: CARE COORDINATION Start: 05-30-2022 End: 05-30-2022 Home visit Kinsey Hardy RN Work Phone: [facility] Comment on above: SN ROUTINE Start: 05-30-2022 End: 05-30-[address] Nataliya Avila Work Phone: [facility] Work Phone: Start: 05-30-2022 End: 05-30-[address] Nataliya Avila Work Phone: [facility] Oncology Start: 05-23-2022 End: 05-23-2022 Home visit Rima King RN Work Phone: [facility] Comment on above: SN SOC Start: 05-21-2022 Telephone encounter Jahaira landeros Work Phone: [facility] Comment on above: Home Care (Confirmat ion Call ) Start: 05-18-2022 Non-patient / Non-visit Dr. Pena Work Phone: [facility] Start: 05-17-2022 Non-patient / Non-visit Dr. Pena Work Phone: [facility] Start: 05-17-2022 Telephone encounter Hailey MatiasRn Ritesh Shabazz RN Colorectal Surgery Comment on above: Supervisor Patching - O ther Start: 05-16-2022 Non-patient / Non-visit Dr. Pena Work Phone: [facility] Start: 05-15-2022 Non-patient / Non-visit Dr. Pena Work Phone: [facility] Start: 05-14-2022 Non-patient / Non-visit Dr. Pena Work Phone: [facility] Start: 05-13-2022 Non-patient / Non-visit Dr. Pena Work Phone: [facility] Start: 05-13-2022 End: 05-18-2022 Evaluation and management of inpatient [facility] Start: 05-09-2022 Telephone encounter Terrell Michelle maninder Work Phone: NOC Comment on above: Follow Up Phone Call (All Clear) Start: 04-23-2022 Telephone encounter Hailey (Rn ) Mele PIMENTEL Colorectal Surgery Comment on above: Care Coordination Start: 04-19-2022 Telephone encounter Karthik Last (Grapple Crew Leader) Hu nt Pre Anesthesia Comment on above: Received Outside Med ical Records (Coumadin ) Start: 04-18-2022 End: 04-18-2022 Admission to establishment Pacc Main 4 Work Phone: [facility] Start: 04-18-2022 End: 04-18-2022 Anticoagulant drug [...] Start: 03-14-2022 End: 03-14-2022 Patient encounter procedure [facility] Start: 03-13-2022 End: 03-13-2022 Patient encounter procedure John Mullins MD Work Phone: Colorectal Surgery Comment on above: Enterocutaneous fist volodymyr (Primary Dx) Start: 02-13-2022 Telephone encounter No Pcp NOC Comment on above: Follow Up Phone Call (Post Discharge F/U attempt made. No answer. ) Start: 02-12-2022 Telephone encounter Kinsey Hardy RN Work Phone: [facility] Comment on above: Home Care (non admit to home health) Start: 02-10-2022 End: 02-10-2022 Home visit Kinsey Hardy RN Work Phone: [facility] Comment on above: SN NO ADMIT Start: 02-09-2022 Telephone encounter Self [facility] Comment on above: Home Care (WELCOME H OME CALL) Start: 02-08-2022 Telephone encounter Mikaela cotton LPN Work Phone: [facility] Comment on above: Home Care (confirmat ion call) Home Care ( to chris jernigan) Start: 02-02-2022 Telephone encounter Melly Michele MD Work Phone: MD Provider Adult Comment on above: Patient Update Start: 01-31-2022 End: 01-31-2022 Patient encounter procedure [facility] Start: 01-24-2022 Telephone encounter Melly Michele MD Work Phone: General Surgery Comment on above: Results - Ct (CT sca n from [facility]) Start: 01-18-2022 End: 01-18-2022 Patient encounter procedure Melly Michele MD Work Phone: General Surgery Comment on above: Lower abdominal pain (Primary Dx) Start: 01-15-2022 End: 01-15-2022 Patient encounter procedure [facility] Start: 09-01-2018 Patient encounter procedure Shine Rosas Facility:[id number] Start: 08-05-2018 End: 08-05-2018 Patient encounter procedure Dallas Ortiz Facility:[facility] Start: 08-05-2018 End: 08-05-2018 Patient encounter procedure Dallas Ortiz Facility:[facility] Start: 09-19-2017 End: 09-20-2017 Evaluation and management of inpatient PCP UNKNOWN Facility:[facility] Start: 08-15-2017 End: 08-29-2017 Evaluation and management of inpatient RUBPEPE PACHECO Facility:[facility] Start: 08-01-2017 End: 08-02-2017 Evaluation and management of inpatient BUCK STAUFFER Facility:[facility] Start: 07-31-2017 End: 07-31-2017 Ambulatory BUCK STAUFFER Facility:[facility] Start: 07-30-2017 End: 07-31-2017 Emergency department patient visit BISHOP AN Facility:[facility] Nael Procedures Date Procedure Procedure Detail Performing Clinician Start: 10-15-2024 Ct thorax w/o contra st material Froilan Beal APRN.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 Work Phone: Start: 04-13-2024 Ct thorax w/o contra st material Froilan Beal ECONOMICS ANALYST.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 Work Phone: Start: 03-07-2023 Ct thorax w/o contra st material Froilan Beal APRN.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 Work Phone: Start: 12-04-2022 Radiologic exam ches t 2 views Froilan Beal APRN.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 Work Phone: Start: 10-23-2022 Radiologic exam ches [...] Dr. Madi Avila Work Phone: Start: 08-17-2022 Plain chest X-ray Dr. Madi Avila Work Phone: Start: 08-17-2022 Biopsy/Inj or Needle Placement Dr. Nataliya Avila Work Phone: Start: 06-27-2022 [facility] incl fluor g dnce dx w/cell washg [...] DTaP,Tdap,Td Vaccine (2 - Td or Tdap) [facility] Start: 11-01-2030 Colonoscopy COLONOSCOPY [facility] Start: 11-01-2030 COLORECTAL CANCER SCREENING COLORECTAL CANCER SCREENING [facility] Start: 10-16-2025 DIABETES SCREEN DIABETES SCREEN [facility] Start: 10-16-2025 Diabetes Screening Diabetes Screenin g [facility] Start: 10-11-2025 DIABETES SCREEN DIABETES SCREEN [facility] Start: 05-21-2025 DIABETES SCREEN DIABETES SCREEN [facility] Start: 05-02-2025 DIABETES SCREEN DIABETES SCREEN [facility] Start: 04-18-2025 DIABETES SCREEN DIABETES SCREEN [facility] Start: 02-08-2025 DIABETES SCREEN DIABETES SCREEN [facility] Start: 10-16-2024 End: 10-16-2024 Follow-up encounter 10/16/2024 2:00 PM EST [facility] [address] [place] [address] Radha Beal M, ECONOMICS ANALYST.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 [address] [place] [address] [address] up [address] [facility] Comment on above: 6 months follow up w johnson CT Start: 09-30-2024 Advance Directive Discussion Advance Directive Discussion [facility] Start: 05-31-2024 Covid-19 Vaccine ( season) Covid-19 Vaccine () [facility] Start: 05-31-2024 Influenza vaccination Influenza Vacc ine (#1) [facility] Start: 04-15-2024 End: 04-15-2024 Patient encounter procedure 04/15/2024 11:30 AM EDT [facility] [address] [place] [address] Radha Beal M, ECONOMICS ANALYST.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 [address] [place] [address] PHONE VISITMalignant neoplasm of unspecified part of unspecified bronchus or lung [facility] Comment on above: PHONE VISITMalignant neoplasm of unspecified part of unspecified bronchus or lung Start: 10-11-2023 Influenza vaccination LUNG CANCER SC PRITINING [facility] Start: 09-30-2023 Advance Directive Discussion Advance Directive Discussion [facility] Start: 09-30-2023 Behavioral Health Screening Behavioral Health Screening [facility] Start: 07-06-2023 BP CONTROLLED (<130/80) BP CONTROLLE D (<130/80) [facility] Start: 06-21-2023 BP CONTROLLED (<130/80) BP CONTROLLE D (<130/80) [facility] Start: 05-31-2023 Covid-19 Vaccine () Covid-19 Vaccine () [facility] Start: 05-31-2023 Influenza vaccination Influenza Vacc ine (#1) [facility] Start: 05-30-2023 BP CONTROLLED (<130/80) BP CONTROLLE D (<130/80) [facility] Start: 10-25-2022 DIABETES SCREEN DIABETES SCREEN [facility] Start: 09-30-2022 ADVANCE DIRECTIVE DISCUSSION ADVANCE DIRECTIVE DISCUSSION [facility] Start: 09-30-2022 DEPRESSION ASSESSMENT DEPRESSION ASS ESSMENT [facility] Start: 08-17-2022 CORE NDL BX LNG/MED PERQ CORE NDL BX LNG/MED PERQ [facility] Start: 08-17-2022 Vital signs measurements [facility] Start: 08-17-2022 Catheterization of vein [facility] Start: 08-17-2022 Oxygen therapy [facility] Start: 08-17-2022 Patient discharge [facility] Start: 08-17-2022 Vital signs measurements [facility] Start: 08-17-2022 Following clinical pathway protocol [facility] Start: 06-19-2022 End: 10-19-2022 SARS-CoV-2 (COVID-19) RNA [Presence] in Respiratory specimen by CHAR with probe detection INTERMEDIATE RAPID COVID Microbiology Routine Pre-op chest exam Expected: 06/19/2022, Expires: 10/19/2022 [facility] Work Phone: Comment on above: Expected: 06/19/2022 , Expires: 10/19/2022 Start: 2022 RSV Vaccine (1 - 1-d ose 75+ series) RSV Vaccine (1 - 1-dose 75+ series) [facility] Start: 05-31-2022 Influenza vaccination INFLUENZA (#1) [facility] Start: 05-18-2022 Patient discharge [facility] Work Phone: Start: 05-16-2022 Bedrest [facility] Work Phone: Start: 05-15-2022 Care planning and pr oblem solving actions [facility] Work Phone: Start: 05-14-2022 Consultation for treatment [facility] Work Phone: Start: 05-13-2022 Application of intermittent pneumatic compression device [facility] Work Phone: Start: 05-13-2022 Following clinical pathway protocol [facility] Work Phone: Start: 05-13-2022 Assessment of risk o f venous thromboembolism [facility] Work Phone: Start: 05-13-2022 Incentive spirometry [facility] Work Phone: Start: 05-13-2022 Inhalation therapy procedure [facility] Work Phone: Start: 05-13-2022 Insertion of cathete r into peripheral vein [facility] Work Phone: Start: 05-13-2022 Measuring intake and output [facility] Work Phone: Start: 05-13-2022 Notification of physician [facility] Work Phone: Start: 05-13-2022 Patient referral to dietitian [facility] Work Phone: Start: 05-13-2022 Providing care accor ding to standard [facility] Work Phone: Start: 05-13-2022 Provision of activit y privileges [facility] Work Phone: Start: 05-13-2022 Referral to general surgeon [facility] Work Phone: Start: 05-13-2022 Referral to occupati onal therapist [facility] Work Phone: Start: 05-13-2022 Referral to service [facility] Work Phone: Start: 05-13-2022 [facility] Work Phone: Start: 05-13-2022 Verification routine [facility] Work Phone: Start: 05-13-2022 Admission procedure [facility] Work Phone: Start: 05-13-2022 End: 05-13-2022 [facility] Work Phone: Start: 05-13-2022 End: 05-13-2022 Blood culture [facility] Work Phone: Start: 05-13-2022 Patient referral to dietitian [facility] Work Phone: Start: 01-12-2022 COVID-19 VACCINE (4 - Booster for Moderna series) COVID-19 VACCINE (4 - Booster for Moderna series) [facility] Start: 11-08-2021 COVID-19 VACCINE (4 - Booster for Moderna series) COVID-19 VACCINE (4 - Booster for Moderna series) [facility] Start: 09-30-2021 ADVANCE DIRECTIVE DISCUSSION ADVANCE DIRECTIVE DISCUSSION [facility] Start: 09-30-2021 DEPRESSION ASSESSMENT DEPRESSION ASS ESSMENT [facility] Start: 10-25-2020 Adult depression screening assessment DEPRESSION SCREENING [facility] Start: 2012 Pneumococcal Vaccine : 65+ (1 - PCV) Pneumococcal Vaccine: 65+ (1 - PCV) [facility] Start: 2012 Pneumococcal Vaccine : 65+ (1 of 1 - PCV) Pneumococcal Vaccine: 65+ (1 of 1 - PCV) [facility] Start: 2012 PNEUMOCOCCAL: 65+ (1 - PCV) PNEUMOCOCCAL: 65+ (1 - PCV) [facility] Start: 2012 PNEUMOVAX AGE 65 AND OVER WITH 5YR LOOKBACK (#1) PNEUMOVAX AGE 65 AND OVER WITH 5YR LOOKBACK (#1) [facility] Start: 2007 RSV Vaccine (1 - 1-d ose 60+ series) RSV Vaccine (1 - 1-dose 60+ series) [facility] Start: 2002 Influenza vaccination LUNG CANCER [facility] Start: 1997 Influenza vaccination LUNG CANCER [facility] Start: 1997 Pneumococcal Vaccine : 50+ (1 of 1 - PCV) Pneumococcal Vaccine: 50+ (1 of 1 - PCV) [facility] Start: 1997 SHINGRIX VACCINE (1 of 2) PALAFOX GRIX VACCINE (1 of 2) [facility] Start: 1992 COLOGUARD (FIT-DNA) COLOGUARD (FIT-D NA) [facility] Start: [address] COLONOGRAPHY [facility] Start: 1992 FECAL OCCULT BLOOD FECAL OCCULT BLOO D [facility] Start: 1992 SIGMOIDOSCOPY SIGMOIDOSCOPY [facility] Start: 1982 LIPID SCREEN LIPID SCREEN [facility] Start: 1966 SHINGRIX VACCINE (1 of 2) PALAFOX GRIX VACCINE (1 of 2) [facility] Start: 1966 Urine microalbumin profile [facility] Start: 1965 ANNUAL PCP TEAM NET FISHER JODY DISEASE VISIT ANNUAL PCP TEAM CHRONIC DISEASE VISIT [facility] Start: 1965 Anxiety Screening Anxiety Screening [facility] Start: 1965 BP CONTROLLED (<130/80) BP CONTROLLE D (<130/80) [facility] Start: 1965 Depression Screening Depression Scre ening [facility] Start: 1965 HEPATITIS C SCREENING HEPATITIS C [facility] Start: 1965 Hepatitis C screening Hepatitis C [facility] Start: 1953 PNEUMOCOCCAL: 65+ (1 - PCV) PNEUMOCOCCAL: 65+ (1 - PCV) [facility] Start: 1947 ABDOMINAL AORTIC ANE URYSM SCREENING [facility] Anaerobic [facility] Work Phone: Bacteria identified in Blood by Culture Blood Culture [facility] Work Phone: Bacteria identified in Unspecified specimen by Anaerobe culture [facility] Work Phone: Bacteria identified in Urine by Culture Urine Culture [facility] Work Phone: Blood culture [facility] Work Phone: End: 05-15-2025 CT Chest WO contrast CT CHEST WO IVCON Radiology Routine Malignant neoplasm of unspecified part of unspecified bronchus or lung (HCC) 1 Occurrences starting 04/15/2024 until 05/15/2025 [facility] Work Phone: Comment on above: 1 Occurrences starti ng 04/15/2024 until 05/15/2025 End: 11-15-2025 CT Chest WO contrast CT CHEST WO IVCON Radiology Routine Malignant neoplasm of unspecified part of unspecified bronchus or lung (HCC) 1 Occurrences starting 10/16/2024 until 11/15/2025 [facility] Work Phone: Comment on above: 1 Occurrences starti ng 10/16/2024 until 11/15/2025 End: 01-04-2024 Ct thorax w/o contrast material CT CHEST WO IVCON Radiology Routine Malignant neoplasm of unspecified part of unspecified bronchus or lung (HCC) 1 Occurrences starting 12/05/2022 until 01/04/2024 [facility] Work Phone: Comment on above: 1 Occurrences starti ng 12/05/2022 until 01/04/2024 CYTOLOGY NON-COMPUTER HARDWARE DEVELOPER [facility] Work Phone: Comment on above: Release Upon Orderin g for 1 Occurrences starting 06/27/2022, 1 completed LUNG DIFFUSION CAPAC ITY (DLCO) LUNG DIFFUSION CAPACITY (DLCO) PFT EDMAR Lung nodule 08/30/2022 2:48 PM EST [facility] Work Phone: Microscopic observat ion [Identifier] in Unspecified specimen by Gram stain Gram Stain [facility] Work Phone: End: 03-04-2023 Mri abdomen w/o & w/contrast material MRI ABDOMEN WO/W IVCON Radiology Routine Enterocutaneous fistula S/P ileal conduit (HCC) History of bladder cancer Incisional hernia, without obstruction or gangrene 1 Occurrences starting 02/02/2022 until 03/04/2023 [facility] Work Phone: Comment on above: 1 Occurrences starti ng 02/02/2022 until 03/04/2023 End: 03-04-2023 Mri pelvis w/o & w/contrast material MRI PELVIS WO/W IVCON Radiology Routine Enterocutaneous fistula S/P ileal conduit (HCC) History of bladder cancer Incisional hernia, without obstruction or gangrene 1 Occurrences starting 02/02/2022 until 03/04/2023 [facility] Work Phone: Comment on above: 1 Occurrences starti ng 02/02/2022 until 03/04/2023 Patient Education RAD RN Dischar ge Instructions Needle Biopsy: Lung ED Procedural Sedation, (Adult) [facility] Work Phone: Patient referral [facility] Work Phone: End: 11-22-2023 Radiologic exam chest 2 views XR CHEST 2V FRONTAL/LAT Radiology Routine Malignant neoplasm of lower lobe of left lung (HCC) 1 Occurrences starting 10/23/2022 until 11/22/2023 [facility] Work Phone: Comment on above: 1 Occurrences starti ng 10/23/2022 until 11/22/2023 SIX MINUTE WALK SIX MINUTE WALK PFT Routine Lung nodule 08/30/2022 3:[address] [facility] Work Phone: SPIROMETRY BASELINE ONLY SPIROME TRY BASELINE ONLY PFT EDMAR Lung nodule 08/30/2022 2:[address] [facility] Work Phone: URINALYSIS, REFLEX MICROSCOPIC URINALYSIS, REFLEX MICROSCOPIC Lab Routine Screening for genitourinary condition Ordered: 03/21/2022 [facility] Work Phone: Comment on above: Ordered: 03/21/2022 Wound Culture Wound Culture [facility] Work Phone: [facility] Immunizations Immunization Date Immunization Notes Care Provider Javi arnold 06-28-2023 influenza virus vaccine, unspecified formulation Ct (I-Stat) Work Phone: [facility] 07-27-2022 influenza virus vaccine, unspecified formulation Ct (I-Stat) Work Phone: [facility] 09-13-2021 Covid (Moderna) Dr. Nataliya Avila Work Phone: [facility] 07-13-2021 influenza, seasonal, injectable Dr. Nataliya Avila Work Phone: [facility] 12-26-2020 Covid (Moderna) [facility] 11-28-2020 Covid (Moderna) [facility] NEGATED: Highlighted row has not occurred!04-29-2022 COVID-19 vaccine, age 12+ yr (Search Initiatives-[employer] [place]) Terrell Nathan Work Phone: [facility] Comment on above: Deferred: Patient Re fused Payers Date Payer Category Payer Private Health Insurance [facility] AARP SUPPLEMENT [id number] 2018-Present [phone] [address] [place] [address] Indemnity [id number] 2018 Private Health Insurance [facility] AARP SUPPLEMENT [id number] 2018-Present [phone] [address] [place] [address] Indemnity [id number] 2018 Self-pay 2018 Unknown [id number] 1999 Medicare MEDICARE MEDICAR E A AND B [id number] 1999-Present [phone] [place] [address] Medicare [id number] 1999 Medicare MEDICARE MEDICAR E A AND B [id number] 1999-Present [phone] [place] [address] Medicare [id number] 1997 Medicare [id number] 1989 Medicare [id number] 1945 Unknown [id number] Unknown [id number] Unknown [id number] Unknown [id number] Unknown [id number] Unknown [id number] Social History Date Type Detail Facility Start: 05-02-2020 End: 08-17-2022 Tobacco smoking status [facility] Unknown if ever smoked [facility] Start: 03-26-2019 None [facility] Start: 08-03-2019 With Family [facility] Start: 10-30-2019 Non-smoker [facility] Start: 1945 Sex Assigned At Male W [facility] Start: 04-07-2019 End: 06-25-2022 Tobacco smoking status NHIS Ex-smoker [facility] Start: [birth year]-07-1965 End: 04-07-2015 History of tobacco use Current smoker [facility] Start: 04-07-1965 End: 04-07-2015 History of tobacco use Cigarette Smoker [facility] Start: 04-07-2019 End: 03-08-2023 Cigarettes smoked current (pack per day) - Reported 1 [facility] Work Phone: Start: 04-07-2019 End: 06-25-2022 Tobacco use and exposure User of smokeless tobacco [facility] History of tobacco use Chews [facility] Start: 01-18-2022 End: 10-23-2022 Alcohol intake Ex-drinker (finding) [facility] Start: 1945 Sex Assigned At Not on file [facility] Start: 01-08-2022 End: 08-30-2022 Exposure to SARS-CoV-2 (event) Not sure [facility] Start: 10-16-2022 History SDOH Financial 4 [facility] Start: 10-16-2022 History SDOH Food Worry 1 [facility] Start: 10-16-2022 History SDOH Transpo rt Med 2 [facility] Start: 10-23-2022 End: 03-08-2023 Tobacco use panel [facility] Work Phone: How hard is it for y ou to pay for the very basics like food, housing, medical care, and heating Not very hard [facility] Work Phone: [facility] wheth er (my/our) food would run out before (I/we) got money to buy more. Never true [facility] Work Phone: In the past 12 month s, was there a time when you were not able to pay the mortgage or rent on time? No [facility] Work Phone: Goals Date Patient Goal Desired Activity /State Functional Status Date Assessment Result Facility 05-18-2022 Functional status Bedrest [facility] Work Phone: Mental Status Date Assessment Result Facility 08-17-2022 Cognitive function Voice/Name [facility] Work Phone: 05-17-2022 Cognitive function Voice/Name [facility] Work Phone: Clinical Notes 07-31-2019 to 10-16-2024 Radha Beal, ECONOMICS ANALYST.[facility] - 10/16/2024 1:58 PM Jeanie Cardenasly, RT(R) - 10/15/2024 11:20 AM Radha Grissom APRN.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 - 04/15/2024 11:31 AM Abhi Bunn RN - 06/20/2022 4:49 PM EDT Note Date & Type Note Facility 10-16-2024 Note HNO ID: [id number] Author: RADHA BEAL APRN.[facility]ARSHAD Service: ? Author Type: Nurse Practitioner Type: Progress Notes Filed: 10/16/2024 14:24 Note Text: Heart, Vascular AND Thoracic [facility] Department of Thoracic Surgery TELEPHONE VISIT (audio [...] visit. Either the patient or their legal provider relations representative has been informed of the risks and benefits of -- and alternatives to -- treatment through a remote evaluation and consents to proceed with the evaluation remotely. Javier Johnson has consented to this telephone encounter. Persons Present: Patient and patient's spouse/significant other Total Time Spent: 11-20 minutes Radha Beal APRN.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 [facility] - OUTPATIENT THORACIC SURGERY CLINIC NOTE PT NAME: Javier Johnson [facility] NO: [id number] THORACIC SURGEON: Afia Cisneros M.D. DATE OF [...] assisted left lower (more content not included)... [facility] 10-16-2024 History of Present illness Narrative Heart, Vascular & Thoracic [facility] Department of Thoracic Surgery TELEPHONE VISIT (audio [...] visit. Either the patient or their legal provider relations representative has been informed of the risks and benefits of -- and alternatives to -- treatment through a remote evaluation and consents to proceed with the evaluation remotely. Javier Johnson has consented to this telephone encounter. Persons Present: Patient and patient's spouse/significant other Total Time Spent: 11-20 minutes Radha Beal APRN.[facility] - OUTPATIENT THORACIC SURGERY CLINIC NOTE PT NAME: Javier Johnson [facility] NO: [id number] THORACIC SURGEON: Afia Cisneros M.D. DATE OF [...] to follow in 1 year Radha Beal APRN.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 Part of this note was copied from previous note, all content has been individually reviewed, updated as necessary, and thoroughly reviewed. documented in this encounter [facility] 10-15-2024 History of Present illness Narrative Radiology [...] PATIENT PRESENTS WITH AN IMPLANTABLE OR ATTACHED MARINE TOWER OPERATOR: No RADIOLOGY DEPARTMENT: CT; Exam(s) Completed: Chest PERIPHERAL IV DATA: Not applicable SIGNED BY: RT Anupam(Zane) October 15, 2024 3:12 PM documented in this encounter [facility] 10-15-2024 Note HNO ID: [id number] Author: MIKAELA ANDERSON RT(R) Service: ? Author Type: Line Leader Type: Progress Notes Filed: 10/15/2024 15:13 Note [...] PATIENT PRESENTS WITH AN IMPLANTABLE OR ATTACHED MARINE TOWER OPERATOR: No RADIOLOGY DEPARTMENT: CT; Exam(s) Completed: Chest PERIPHERAL IV DATA: Not applicable SIGNED BY: RT Anupam(Zane) October 15, 2024 3:12 PM [facility] 04-15-2024 Note HNO ID: [id number] Author: RADHA BEAL APRN.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 Service: ? Author Type: Nurse Practitioner Type: Progress Notes Filed: 04/15/2024 12:15 Note Text: Heart, Vascular AND Thoracic [place] Department of Thoracic Surgery TELEPHONE VISIT (audio [...] visit. Either the patient or their legal provider relations representative has been informed of the risks and benefits of -- and alternatives to -- treatment through a remote evaluation and consents to proceed with the evaluation remotely. Javier Johnson has consented to this telephone encounter. Persons Present: Patient and patient's spouse/significant other Total Time Spent: 11-20 minutes Radha Beal APRN.[facility] - OUTPATIENT THORACIC SURGERY CLINIC NOTE PT NAME: Javier Johnson [facility] NO: [id number] THORACIC SURGEON: Afia Cisneros M.D. DATE OF [...] left lower lobe (more content not included)... [facility] 04-15-2024 History of Present illness Narrative Heart, Vascular & Thoracic [place] Department of Thoracic Surgery TELEPHONE VISIT (audio [...] visit. Either the patient or their legal provider relations representative has been informed of the risks and benefits of -- and alternatives to -- treatment through a remote evaluation and consents to proceed with the evaluation remotely. Javier Johnson has consented to this telephone encounter. Persons Present: Patient and patient's spouse/significant other Total Time Spent: 11-20 minutes Radha Beal APRN.[facility] - OUTPATIENT THORACIC SURGERY CLINIC NOTE PT NAME: Javier Johnson [facility] NO: [id number] THORACIC SURGEON: Afia Cisneros M.D. DATE OF [...] to follow in 6 month Radha Beal APRN.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 Part of this note was copied from previous note, all content has been individually reviewed, updated as necessary, and thoroughly reviewed. documented in this encounter [facility] 04-13-2024 History of Present illness Narrative Radiology [...] PATIENT PRESENTS WITH AN IMPLANTABLE OR ATTACHED MARINE TOWER OPERATOR: No RADIOLOGY DEPARTMENT: CT; Exam(s) Completed: Chest PERIPHERAL IV DATA: Not applicable SIGNED BY: RT Anupam(Zane) April 13, 2024 4:01 PM documented in this encounter [facility] 04-13-2024 Note HNO ID: [id number] Author: MIKAELA ANDERSON RT(Zane) Service: ? Author Type: Line Leader Type: Progress Notes Filed: 04/13/2024 16:01 Note [...] PATIENT PRESENTS WITH AN IMPLANTABLE OR ATTACHED MARINE TOWER OPERATOR: No RADIOLOGY DEPARTMENT: CT; Exam(s) Completed: Chest PERIPHERAL IV DATA: Not applicable SIGNED BY: RT Anupam(R) April 13, 2024 4:01 PM [facility] 03-07-2023 History of Present illness Narrative Radiology [...] 2023 1:07 PM documented in this encounter [facility] 12-05-2022 History of Present illness Narrative Heart, Vascular & Thoracic [place] Department of Thoracic Surgery VIRTUAL VISIT PROGRESS [...] Total Time Spent: 11-20 minutes Radha Beal APRN.[facility] - OUTPATIENT THORACIC SURGERY CLINIC NOTE PT NAME: Javier Johnson CLINIC NO: [id number] THORACIC SURGEON: Afia Cisneros M.D. DATE OF [...] Chest locally, VV to follow in 3 [facility] Beal APRN.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 I have communicated my name and active licensure. The patient's identity and physical location were verified at the time of this visit. Either the patient or their legal provider relations representative has been informed of the risks and benefits of -- and alternatives to -- treatment through a remote evaluation and consents to proceed with the evaluation remotely. documented in this encounter [facility] 10-23-2022 History of Present illness Narrative Images from the original note were not included. [facility] - OUTPATIENT THORACIC SURGERY CLINIC NOTE PT NAME: Javier Carrasquillo [facility] NO: [id number] THORACIC SURGEON: Afia Cisneros M.D. DATE OF [...] Radha Yoo APRN.HARSHAD documented in this encounter [facility] 10-23-2022 History of Present illness Narrative Radiology [...] 2022 12:53 PM documented in this encounter [facility] 10-11-2022 History of Present illness Narrative Radiology [...] 2022 11:37 AM documented in this encounter [facility] 10-11-2022 History of Present illness Narrative RADIOLOGY [...] POST EXAM PIV STATUS: Discontinued PROCEDURE TYPE: DE Stress: 11.0mCi [id number] was administered IV for Rest Imaging at 8:20 by 29.7 mCi [id number] was administered IV for Stress Imaging at [...] 11, 2022 TIME: 8:18 AM PAGER/CONTACT #: [phone] documented in this encounter [facility] 09-02-2022 History of Present illness Narrative [facility] STAFF PHYSICIAN NOTE OF PERSONAL [...] August 30, 2022 documented in this encounter [facility] 08-30-2022 History of Present illness Narrative PULM FUNCTION SMARTBLOCK: Provider: Afia Cisneros MD, PhD Spirometry: 1 DLCO: 1 6 MW: 1 System: MC9 - [id number] documented in this encounter [facility] 08-30-2022 History and physical note Images from the original note were not included. 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 In regards to his lung cancer, he was noticed to have a nodule in left lower lobe on his surveillance CT chest. This was followed up with a PET CT which shows [id number] with SUV 4.2, mildly enlarged precarinal node [...] Stephen MD SIGNATURE: Elana Stephen MD PAGER: [phone] DATE of SERVICE: 08/30/2022 TIME of SERVICE: 12:25 PM documented in this encounter [facility] 07-06-2022 Miscellaneous Notes SITUATION: Assisted agency discharge visit completed today. spouse also [...] additional medical questions/concerns. documented in this encounter [facility] 07-04-[address] Delgado, Patient is in need of continued Home nurse visits 1wk3 for assessment/incision care. Thank you in advance for your review of this information. Ayo Sorenson RN-[facility] documented in this encounter [facility] 07-04-2022 Miscellaneous Notes SN contacted patient's , [...] request further supplies to be ordered per [facility] as incision is still healing. SN has contacted primary visit nurse Kinsey and accreditation manager regarding supplies that were ordered and will need approval to be sent [facility] by 07/06/22. SN to see patient Saturday for next scheduled visit. Spouse verbalizes ujnderstanding. documented in this encounter [facility] 06-29-2022 Miscellaneous Notes I spoke with Lokesh [...] CC: DO Francisco Ely MD Anna Worthams, ECONOMICS ANALYST.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 Imelda Morris MD documented in this encounter [facility] 06-27-2022 Nurse Note POST OP LEARNING RESPONSE [...] In Department: ADMITTING documented in this encounter [facility] 06-22-2022 History of Present illness Narrative IP Clinical Coordinator Pre-Visit Chart Review Date of Visit: 06/25/22 Type of Visit: New Consult Summary of Reason for Visit: Pre bronch visit. (Bronch 06/27/22) Needed Testing Prior to Visit: None Notes: Per Bronch Request Diagnosis/Reason for Bronchoscopy: PET avid nodule and nodes Referred by: Moshe [phone] Reviewed by: MAXIMO Key MSN, RN, CCRN-K Interventional Pulmonary Clinical Coordinator documented in this encounter [facility] 06-21-2022 Miscellaneous Notes SITUATION: Assisted routine visit completed today. spouse also present [...] care and assessment. documented in this encounter [facility] 06-20-2022 Miscellaneous Notes Bronchoscopy scheduled on 06/27/2022. COVID test on 06/25/2022 at the [facility]. 5 day hold on Coumadin. documented in this encounter [facility] 06-19-2022 History of Present illness Narrative Bronchoscopy [...] hold for 5 days Nursing Considerations: (ie: residential, TB, respiratory isolation, etc.) none Diagnosis/Reason for Bronchoscopy: PET avid nodule and nodes Referred by: Moshe [phone] Reviewed by: MAXIMO Baugh MD June 19, 2022 3:57 PM Addendum: CBC with diff: WBC 6.30 05/21/2022 RBC 3.86 05/21/2022 Hemoglobin 10.9 05/21/2022 Hematocrit 34.0 05/21/2022 MCV 88.1 05/21/2022 MCH 28.2 05/21/2022 MCHC 32.1 05/21/2022 RDW-CV 14.8 05/21/2022 Platelet Count 286 05/21/2022 MPV 10.3 05/21/2022 Neut% 67.0 05/18/2022 Lymph% 25.0 05/18/2022 Garvin% 5.0 05/18/2022 Eosin% 0.3 10/25/2019 Baso% 0.0 05/18/2022 Abs Neut (ANC) 4.91 05/18/2022 Abs Garvin 0.37 05/18/2022 Abs Eosin 0.22 05/18/2022 Abs [...] 1.22 mg/dL Final documented in this encounter [facility] 06-14-2022 Miscellaneous Notes SITUATION: Assisted routine visit completed today. spouse also present [...] assessment and care. documented in this encounter [facility] 06-08-2022 Miscellaneous Notes error documented in this encounter [facility] 06-08-2022 Miscellaneous Notes SN contacted Dr.Scott Zane Mullins on 06/08/22 for the following: unmade visit per patient's spouse who stated that patient had a MD appointment. documented in this encounter [facility] 06-07-2022 History of Present illness Narrative ET/WOCN [...] varies Current pouching system: Removed: 2 10/03 [place] New Image cut to fit convex flange, urostomy pouch Current wearing time: 1 day Recommendations: Skin Care: Stomahesive powder dusted to skin followed by Cavilon skin prep Pouching System: Applied: same system other then used 1 3/ [place] New Image convex flange Pouch #2 Stoma Type: End descending colostomy Diameter: rounds to 1 10/01 Location: LLQ Protrusion: Protrudes slightly Mucosal condition and color: Morrice and moist Mucocutaneous junction Intact Peristomal Skin: [...] skin prep Pouching System: Applied: 2 10/03 [place] New Image cut to fit convex flange, LNR pouch Midline Abdominal Incision: Other: low midline gape packed with 1/4 nugauze and covered with dry dressing. 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 Mullins For immediate authorization, please contact the physician s office. [facility] Nurse: CORAL Lincoln, CWOCN SIGNATURE: Vidhi Lewis RN PATIENT NAME: Javier Johnson DATE: June 07, 2022 TIME: 2:15 PM CONTACT #: [phone] EMAIL: [email or web address] [address] Patient: Javier Johnson Patient Address: [address] [place] [address] [address] [place] [facility] [place] [address] [place] [phone] Gender: male Date of : 1945 Type of Stoma: End Ileal Conduit Diagnosis: Bladder Cancer C76.9 OSTOMY SUPPLY ORDER FORM Pouch: [place]: New Image 1 3/4 Urostomy, Ultra clear #87337 30 day use - 1 Box Wafer: [place]: New Image convex 1 # 87091 30 day use - 2 Boxes Adhesive Removers: ConvaTec Sensi-Care No Sting #708014 30 day use - 1 Box Powder: ConvaTec Stomahesive # 36644 30 day use - 1 Bottle Skin Sealant: 3M No Sting, 30/Box # 3344 30 day use - 1 Box Refills: 11 Attending Physician: Dr. Mullins For immediate authorization, please contact the physician s office. WO Nurse: CORAL Lincoln, CWOCN SIGNATURE: Vidhi Lewis RN PATIENT NAME: Javier Johnson DATE: June 07, 2022 TIME: 2:12 PM CONTACT #: [phone] EMAIL: [email or web address] documented in this encounter [facility] 06-07-2022 History of Present illness Narrative COLORECTAL [...] FINDINGS: 1. Extensive abdominal adhesions. 2. Prior xxts-yw-bsde stapled anastomosis with site of the fistula [...] During the visit, the pt and his yarder boss verbalized frustration between our recommendations and the home care nurses recommendations. I explained that we recommend that he pack the wound with dry gauze and pack the length of the tunnel. Per his yarder boss, the home care nurse advised the pt [...] to be confusion and frustration, the pt's yarder boss became upset and states that this is [...] Carri Osorio APRN.HARSHAD documented in this encounter [facility] 06-03-2022 Miscellaneous Notes {Patient's called in, states [...] loose BM.No fever. documented in this encounter [facility] 05-30-2022 Miscellaneous Notes SITUATION: Assisted routine visit completed today. spouse also present [...] assessment and care documented in this encounter [facility] 05-23-2022 Miscellaneous Notes SITUATION: Assisted SOC visit completed today. 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 Date and Time: 12:20 PM 05/21/2022 b. Contact name/relationship: Zain/spouse c. Have you been active with any Home Care company in the last 60 days(such as help with bathing, filling medications, checking your blood pressure) ? No. d. [facility] will be providing your care, [...] maintain a safe environment for our caregivers, [facility] requires any animals or weapons present in the home be located in a secured location. Our clinicians will call you the night before or the morning of the appointment. Their # may come up restricted but they'll leave a VM for you. In case you have any questions or concerns in the meantime, our # is [phone], option 1 Thank you for your time and have a great day. Jahaira Vera documented in this encounter [facility] 05-17-2022 Miscellaneous Notes Spoke with patients' Patient is s/p 1. Exploratory laparotomy with extensive lysis of adhesions.2. Small bowel resection. 3. Small bowel repair.4. TAP block.5. Omental pedicle graft.6. Takedown of enterocutaneous fistula. With Dr Mullins on 04/26/22 Patient is currently admitted at [facility], transfer to has been requested and accepted - pending a bed opening is frustrated regarding this process. Listened to her concerns and provided therapeutic feedback. Advised that at this point in time, our beds are full and we are just waiting on a bed opening in order to be able to begin the transfer. In the meantime, the providers at [facility] can reach out to Dr Mullins if [...] way we can. documented in this encounter [facility] 05-09-2022 Miscellaneous Notes PATIENT INFORMATION Record ID: [id number] [facility]: [facility]: [facility]: [facility] Attending: John Mullins Center: Colorectal Surgery INSTRUCTIONS SN to remind patient of appointment date, time, location All Clear Ask follow question #4b on NOC section of survey. All Clear All Clear SURVEY INFORMATION Medical/Nurse Rental Sales Associate: Lisha Hudson 1. Your discharge instructions are [...] (Standard Question) No documented in this encounter [facility] 04-23-2022 Miscellaneous Notes Called and spoke with [...] of call ----- Message from Padmini Young [facility] sent at 04/23/2022 8:08 AM EDT ----- Regarding: Update - tested positive for Covid he goes for his test today His is the caller and reports she tested positive for Covid. She is questioning if he test positive today will the surgery be postponed. 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 Parkinson's Disease Multiple Sclerosis Impaired Sensorium+hx of CVA- multiple, residual memory deficits Respiratory: Negative for Asthma, Bronchitis, COPD, Current cough, Dyspnea, Pneumonia within 6 weeks (date), URI < 2 weeks+former smoker, +lung nodule Cardiovascular: Negative for Recent ID, Angina, CAD, CHF, PVD, Valvular Heart Disease, [...] TIME: 8:35 AM documented in this encounter [facility] 04-18-2022 Instructions Shayna Patel PA-C - 04/18/2022 8:22 AM EDT PATIENT PREOPERATIVE INSTRUCTIONS John Mullins MD has scheduled you for your procedure at this surgery center: [facility] [place] Scheduling Office: [phone] --[address] [place] [address]. Please read below carefully for your personalized [...] Procedures: - YOU MUST HAVE A RESPONSIBLE GRINDER MACHINE KNIFE SETTER TAKE YOU HOME. A DIRECTOR DRUG OR DEVULCANIZER OPERATOR CANNOT BE MADE A RESPONSIBLE GRINDER MACHINE KNIFE SETTER. - We recommend that a responsible person [...] call the Saturday before. Your surgeon s ladle liner will tell you what time to call the office. - If you have not reached the departmental ladle liner by 5 P.M., call [phone] after 5 P.M. the day before your surgery. Please be aware that emergency situations arise, which may delay or change your surgical time. If this happens, we will notify you as soon as possible and regret any inconvenience. If you already have an Advance Directive, please fax a copy to [phone] or email to for it to be [...] Shayna Patel PA-C documented in this encounter [facility] 04-10-2022 History of Present illness Narrative COLORECTAL [...] Mullins MD - 04/10/2022 10:46 AM EDT [facility] STAFF PHYSICIAN NOTE OF PERSONAL [...] SERVICE: 10:44 AM documented in this encounter [facility] 03-29-2022 Miscellaneous Notes After discussing further with [...] take a picture and send it through [employer]. Will wait for picture to see. Shayna Lewis RN The patients spouse Zain is calling to report/discuss the bowel coming from the fistula. [phone] documented in this encounter [facility] 03-21-2022 History of Present illness Narrative PATIENT: Javier Johnson [id number] REFERRING MD: John Mullins 03/19/2022 Chief Complaint [...] further evaluation. Jose Deluna MD Urologic Staff [facility] documented in this encounter [facility] 03-13-2022 History of Present illness Narrative COLORECTAL [...] Mullins MD - 03/13/2022 3:34 PM EDT [facility] STAFF PHYSICIAN NOTE OF PERSONAL [...] SERVICE: 3:27 PM documented in this encounter [facility] 02-12-2022 Miscellaneous Notes Pt and cg decline admission to home health; pt and cg independent with care. Fistula is now covered with a bandaid and not draining. documented in this encounter [facility] 02-10-2022 Miscellaneous Notes SN met with pt [...] This SN agrees. documented in this encounter [facility] 02-09-2022 Miscellaneous Notes Welcome Home Call: a. Date and Time: 11:48 AM 02/09/2022 b. Contact name/relationship: , ZAIN, RETURNED CALL c.Have you been active with any Home Care company in the last 60 days? No. d. Are you interesting in initiated services with [facility]? YES (yes or no) e. Do [...] concerns in the meantime, our # is [phone], option 1 (need to confirm) Thank you for your time and have a great day. Raven Veliz Habilitation Training Specialist Call placed to at [phone] per care team instructions. No answer, message left with my direct line for a call back. I will also try to call again later today. documented in this encounter [facility] 02-08-2022 Miscellaneous Notes Spoke to Mike at PCP office. Dr Carlisle no longer practices there, she will speak to another attending in the office to confirm if they will follow for home care. Mikaela Gonzalez LPN Central Admissions Intake Nurse documented in this encounter [facility] 02-08-2022 Miscellaneous Notes Left voice message at [phone] requesting a call back to confirm SOC Mikaela Gonzalez LPN Central Admissions Intake Nurse documented in this encounter [facility] 02-02-2022 Miscellaneous Notes Patient wants to be scheduled at [facility] to see if can get in for MRI sooner. Faxed order to [facility] Patient to call and schedule follow up visit with Dr Michele after MRI. Spoke with scheduling at [facility], they will call patient to schedule MRI after insurance approval. Update patients Carley, verbalized understanding Kristal Magallon LPN Called patient spoke to updated and was forwarded to [facility] Tigist to be scheduled for MRI and [...] office. Thanks Rich documented in this encounter [facility] 01-25-2022 Miscellaneous Notes Images from the original [...] chance to review Javier's CT scan from [facility] and what their next steps are. The CT scan images from [facility] have been pushed and are in Epic. Gogo Murguia RN documented in this encounter [facility] 01-18-2022 History of Present illness Narrative HISTORY [...] 2016, the patient underwent surgical procedure in [facility]. he underwent prostatectomy with ileal conduit. This [...] incision at that time. Hospital records from [facility] where he been recently treated for wound care discusses what sounds possibly like a fistula which apparently closed after some time. In May 2017 he underwent attempted colostomy takedown/reversal but then again had drainage and had re-creation of colostomy in [place] in July [address] Augie [...] recent visit to the wound Center in [facility] was around early December, cellulitis on the [...] CT fistulogram to be obtained. an 8 Grenadian Tsai catheter was placed in the fistulous [...] copies of his original surgical procedures from [place]. The patient has signed a consent form and we will fax request for those records. I discussed the above case with Dr. Mullins, colorectal surgery, [facility] who agrees the patient will need complex [...] opinion and advice regarding lower abdominal pain. [facility] emergency department had a CT scan of [...] entered by the nurse and reviewed by tn Nursing Notes: Skyla Carvalhoz 01/18/2022 7:38 AM [...] I know to review the images from [facility] and compare this to his previous scans. Diagnoses: (R10.30) Lower abdominal pain (primary encounter diagnosis) A letter was sent to Dr. Seng Carlisle DO indicating the above finding for this patient. Return to Clinic: The patient is instructed to follow-up with me as needed. Melly Michele MD documented in this encounter [facility] 01-18-2022 Nurse Note REVIEW OF SYSTEMS: General: [...] 11/01/2020 Skyla Wright documented in this encounter [facility] 07-31-2019 History of Past i llness Narrative [...] of this encounter (statuses as of 01/21/2022) [facility]2019 History of Past illness Narrative* Problem Noted [...] of this encounter (statuses as of 01/25/2022) [facility] History of Past illness Narrative* Problem Noted [...] of this encounter (statuses as of 02/02/2022) [facility] History of Past illness Narrative* Problem Noted [...] of this encounter (statuses as of 02/08/2022) [facility] History of Past illness Narrative* Problem Noted [...] of this encounter (statuses as of 02/09/2022) [facility] History of Past illness Narrative* Problem Noted [...] of this encounter (statuses as of 02/12/2022) [facility] History of Past illness Narrative* Problem Noted [...] of this encounter (statuses as of 02/12/2022) [facility] History of Past illness Narrative* Problem Noted [...] of this encounter (statuses as of 02/13/2022) [facility] History of Past illness Narrative* Problem Noted [...] of this encounter (statuses as of 03/13/2022) [facility] History of Past illness Narrative* Problem Noted [...] of this encounter (statuses as of 03/25/2022) [facility] History of Past illness Narrative* Problem Noted [...] of this encounter (statuses as of 03/26/2022) [facility] History of Past illness Narrative* Problem Noted [...] of this encounter (statuses as of 03/29/2022) [facility] History of Past illness Narrative* Problem Noted [...] of this encounter (statuses as of 04/10/2022) [facility] History of Past illness Narrative* Problem Noted [...] of this encounter (statuses as of 04/18/2022) [facility] History of Past illness Narrative* Problem Noted [...] of this encounter (statuses as of 04/19/2022) [facility] History of Past illness Narrative* Problem Noted [...] of this encounter (statuses as of 04/23/2022) [facility] History of Past illness Narrative* Problem Noted [...] of this encounter (statuses as of 05/09/2022) [facility] History of Past illness Narrative* Problem Noted [...] of this encounter (statuses as of 05/17/2022) [facility] History of Past illness Narrative* Problem Noted [...] of this encounter (statuses as of 05/21/2022) [facility] History of Past illness Narrative* Problem Noted [...] of this encounter (statuses as of 05/23/2022) [facility] History of Past illness Narrative* Problem Noted [...] of this encounter (statuses as of 05/31/2022) [facility] History of Past illness Narrative* Problem Noted [...] of this encounter (statuses as of 06/04/2022) [facility] History of Past illness Narrative* Problem Noted [...] of this encounter (statuses as of 06/07/2022) [facility] History of Past illness Narrative* Problem Noted [...] of this encounter (statuses as of 06/08/2022) [facility] History of Past illness Narrative* Problem Noted [...] of this encounter (statuses as of 06/08/2022) [facility] History of Past illness Narrative* Problem Noted [...] of this encounter (statuses as of 06/08/2022) [facility] History of Past illness Narrative* Problem Noted [...] of this encounter (statuses as of 06/15/2022) [facility] History of Past illness Narrative* Problem Noted [...] of this encounter (statuses as of 06/15/2022) [facility] History of Past illness Narrative* Problem Noted [...] of this encounter (statuses as of 06/19/2022) [facility] History of Past illness Narrative* Problem Noted [...] of this encounter (statuses as of 06/20/2022) [facility] History of Past illness Narrative* Problem Noted [...] of this encounter (statuses as of 06/22/2022) [facility] History of Past illness Narrative* Problem Noted [...] of this encounter (statuses as of 06/28/2022) [facility] History of Past illness Narrative* Problem Noted [...] of this encounter (statuses as of 06/29/2022) [facility] History of Past illness Narrative* Problem Noted [...] of this encounter (statuses as of 07/04/2022) [facility] History of Past illness Narrative* Problem Noted [...] of this encounter (statuses as of 07/07/2022) [facility] History of Past illness Narrative* Problem Noted [...] of this encounter (statuses as of 08/30/2022) [facility] History of Past illness Narrative* Problem Noted [...] of this encounter (statuses as of 08/30/2022) [facility] History of Past illness Narrative* Problem Noted [...] of this encounter (statuses as of 09/02/2022) [facility] History of Past illness Narrative* Problem Noted [...] of this encounter (statuses as of 10/12/2022) [facility] History of Past illness Narrative* Problem Noted [...] of this encounter (statuses as of 10/12/2022) [facility] History of Past illness Narrative* Problem Noted [...] of this encounter (statuses as of 10/23/2022) [facility] History of Past illness Narrative* Problem Noted [...] of this encounter (statuses as of 10/24/2022) [facility] History of Past illness Narrative* Problem Noted [...] of this encounter (statuses as of 12/05/2022) [facility] History of Past illness Narrative* Problem Noted [...] of this encounter (statuses as of 01/06/2023) [facility] History of Past illness Narrative* Problem Noted [...] of this encounter (statuses as of 08/03/2023) [facility] History of Past illness Narrative* Problem Noted [...] of this encounter (statuses as of 08/03/2023) [facility] noteNo assessment information availableWCleveland [facility] Work Phone: Evaluation note* Diagnosis Lower abdominal pain- Primary Abdominal pain, other specified site [facility]* Diagnosis Enterocutaneous fistula- Primary Fistula of intestine, 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 History of bladder cancer Personal history of malignant neoplasm of bladder Incisional hernia, without obstruction or gangrene Incisional hernia without mention of obstruction or gangrene [facility] Diagnosis Enterocutaneous fistula- Primary Fistula of intestine, excluding rectum and anus [facility] Diagnosis Malignant neoplasm of urinary bladder, unspecified site (HCC)- Primary Enterocutaneous fistula Fistula of intestine, excluding rectum and anus Lung nodule Solitary pulmonary nodule [facility] Diagnosis Screening for genitourinary condition Screening for other and unspecified genitourinary condition [facility] Diagnosis Enterocutaneous fistula- Primary Fistula of intestine, 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, excluding rectum and anus [facility] Diagnosis Pre-op evaluation- Primary Preoperative [...] rectum and anus [facility] Diagnosis Onset Date Resolution Status Abdominopelvic abscess acute Hypokalemia acute Wound infection after surgery acute [facility] Work Phone: Evaluation note* Diagnosis Onset Date Resolution Status Hypokalemia resolved [facility] Work Phone: Evaluation note* Diagnosis Encounter for attention to ileostomy (HCC)- Primary Attention to ileostomy [facility] Diagnosis Postoperative state- Primary Other postprocedural status [facility] Diagnosis Pre-op chest exam- Primary Pre-operative respiratory examination [facility] Diagnosis Bronchiolar disease Other diseases of trachea and bronchus Adenopathy Enlargement of lymph nodes Lung nodule Solitary pulmonary nodule [facility] Diagnosis Lung nodule- Primary Solitary pulmonary nodule [facility] Diagnosis Lung nodule- Primary Solitary pulmonary nodule [facility] Diagnosis Lung nodule- Primary Solitary pulmonary nodule [facility] Diagnosis Lung nodule- Primary Solitary pulmonary nodule [facility] Lung nodule Solitary pulmonary nodule Pre-op testing Preoperative examination, unspecified Encounter for other preprocedural examination SOB (shortness of breath) Shortness of breath Lung nodule Solitary pulmonary nodule Pre-op testing Preoperative examination, unspecified SOB (shortness of breath) Shortness of breath [facility] Lung nodule Solitary pulmonary nodule Pre-op testing Preoperative examination, unspecified SOB (shortness of breath) Shortness of breath Lung nodule Solitary pulmonary nodule Pre-op testing Preoperative examination, unspecified SOB (shortness of breath) Shortness of breath [facility] Diagnosis Malignant neoplasm of lower lobe of left lung (HCC)- Primary [facility]* Diagnosis Follow-up examination following surgery Follow-up examination, following unspecified surgery [facility]* Diagnosis Malignant neoplasm of unspecified part of unspecified bronchus or lung (HCC)- Primary [facility]* Diagnosis Malignant neoplasm of lower lobe of left lung (HCC) [facility]* Diagnosis Malignant neoplasm of unspecified part of unspecified bronchus or lung (HCC) [facility] Diagnosis Malignant neoplasm of unspecified part of unspecified bronchus or lung (HCC) [facility] Diagnosis Malignant neoplasm of unspecified part of unspecified bronchus or lung (HCC)- Primary [facility]* Diagnosis Post-op pain Other acute postoperative [...] or lung (HCC) [facility]* Diagnosis Post-op pain Other acute postoperative [...] lung (HCC)- Primary documented in this encounter [facility] Plan of care note* Visit Details Visit Type -SN SOC Discipline -Assisted Problems Problem Description Start Date Status Goals [...] all medications you are taking -- even ogtk-gel-aqgxhav medicines -- with your doctor and pharmacist [...] and ostomy precautions. documented in this encounter [facility] Plan of care note* Visit Details Visit Type -SN ROUTINE Discipline -Assisted Problems Problem Description Start Date Status Goals [...] disease/condition Patient independent documented in this encounter [facility] Plan of care note* Visit Details Visit Type -SN ROUTINE Discipline -Assisted Problems Problem Description Start Date Status Goals [...] all medications you are taking -- even htwl-yrq-bjyfcrl medicines -- with your doctor and pharmacist [...] disease/condition Patient independent documented in this encounter [facility] home Plan of care note* Visit Details Visit Type -SN ROUTINE Discipline -Assisted Problems Problem Description Start Date Status Goals [...] ordered by Physician. [facility] Visit Details Visit Type -SN AGENCY DC W V ISIT Discipline -Assisted Problems Problem Description Start Date Status Goals [...] disease/condition Patient independent documented in this encounter [facility] for referral (narrative)* Outpatient Procedure (Urgent) - Closed Specialty Diagnoses / Procedures Referred By Winston foster Referred To Contact [facility] Diagnoses Lung nodule Procedures LUNG DIFFUSION CAPACITY (DLCO) DIFFUSING CAPACITY Afia Cisneros MD, PhD [address] [employer] [address] [address] [facility] [address] [place] [id number] Referral ID Status Reason Start Date Expiration Date V isits Requested Visits Authorized [id number] Closed Auto-Generate d Referral 08/30/2022 09/29/2023 1 1 * Outpatient Procedure (Urgent) - Closed Specialty Diagnoses / Procedures Referred By Winston foster Referred To [facility] Diagnoses Lung nodule Procedures SPIROMETRY BASELINE ONLY SPMTRY W/VC EXPIRATORY MEERA W/WO MXML VOL VNTJ Afia Cisneros MD, PhD [address] [employer] [address] [employer] [address] [place] [address] [facility] [address] [place] [address] Referral ID Status Reason Start Date Expiration Date V isits Requested Visits Authorized [id number] Closed Auto-Generate d Referral 08/30/2022 09/29/2023 1 1 [facility] Diagnostic Procedure Only (Routine) - Closed Specialty Diagnoses / Procedures Referred By Contac t Referred To Contact [facility] Diagnoses Lung nodule Pre-op testing Encounter for other preprocedural examination SOB (shortness of breath) Procedures NM CARDIAC PERF STRESS/EXERCISE MYOCARDIAL SPECT MULTIPLE STUDIES Afia Cisneros MD, PhD [address] [facility] [address] [place] [address] Molecular [facility] Functional [facility] [address] [place] [address] Referral ID Status Reason Start Date Expiration Date V isits Requested Visits Authorized [id number] Closed Auto-Generate d Referral 09/07/2022 10/04/2023 1 1 [facility] Summary Purpose Family History No Family History Records Found Relationship Condition Age at Onset Recorded Date/T andrew brother Cardiac disease Unknown father Malignant neoplasm Unknown Cardiac disease Unknown mother Cardiac disease Unknown Advance Directives No Advanced Directives Records FoundDocuments on File Type Date 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 Advance Directive(s) 07/14/2019 4:21 PM Latest Code Status on File Code Status Date Activated Date Inactivated Comments DNR-CCA 05/18/2022 12:15 PM DNR Order Discussed With: Patient Advance Directive Response Recorded Date/ Time Living Will Yes May 02, 2020 10:52pm Power of Ranch Rider Yes May 02 10:52pm Documents on File Type Date Recorded 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 Advance Directive(s) 11/01/2020 10:25 AM Advance Directive(s) 10/21/2020 11:39 AM Advance Directive(s) 10/25/2019 9:52 PM Advance Directive(s) 07/14/2019 1:20 PM Advance Directive(s) 07/14/2019 4:20 PM Advance Directive(s) 07/14/2019 4:21 PM Documents on File Type Date 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 Advance Directive(s) 11/01/2020 10:25 AM Advance Directive(s) 10/21/2020 11:39 AM Advance Directive(s) 10/25/2019 9:52 PM Advance Directive(s) 07/14/2019 1:20 PM Advance Directive(s) 07/14/2019 4:20 PM Advance Directive(s) 07/14/2019 4:21 PM Documents on File Type Date 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 Advance Directive(s) 02/04/2022 5:44 PM Advance Directive(s) 11/01/2020 10:25 AM Advance Directive(s) 10/21/2020 11:39 AM Advance Directive(s) 10/25/2019 9:52 PM Advance Directive(s) 07/14/2019 1:20 PM Advance Directive(s) 07/14/2019 4:20 PM Advance Directive(s) 07/14/2019 4:21 PM Documents on File Type Date 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 Advance Directive(s) 02/04/2022 5:44 PM Advance Directive(s) 11/01/2020 10:25 AM Advance Directive(s) 10/21/2020 11:39 AM Advance Directive(s) 10/25/2019 9:52 PM Advance Directive(s) 07/14/2019 1:20 PM Advance Directive(s) 07/14/2019 4:20 PM Advance Directive(s) 07/14/2019 4:21 PM Documents on File Type Date 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 Advance Directive(s) 04/17/2022 9:14 AM Advance Directive(s) 02/04/2022 5:44 PM Advance Directive(s) 11/01/2020 10:25 AM Advance Directive(s) 10/21/2020 11:39 AM Advance Directive(s) 10/25/2019 9:52 PM Advance Directive(s) 07/14/2019 1:20 PM Advance Directive(s) 07/14/2019 4:20 PM Advance Directive(s) 07/14/2019 4:21 PM Advance Directive Response Recorded Date/ Time Living Will Yes May 13 1:38pm Power of Ranch Rider No May 13 1:38pm Advance Directive Response Recorded Date/ Time Name of Medical Power of Ranch Rider Zainguilherme Johnson May 13, 2022 11:37pm Living Will Yes May 13 11:37pm Power of Ranch Rider Yes May 13 022 11:37pm Latest Code Status on File Code Status Date Activated Date Inactivated Comments DNR-CC 05/23/2022 4:27 PM DNR-CCA 05/18/2022 12:15 PM 05/21/2022 5:47 PM Documents on File Type Date 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 Advance Directive(s) 05/24/2022 7:11 PM Advance Directive(s) 07/14/2019 4:21 PM Latest Code Status on File Code Status Date Activated Date Inactivated Comments DNR-CC 05/23/2022 4:27 PM 06/27/2022 1:51 PM Advance Directive Response Recorded Date/ Time Name of Medical Power of Ranch Rider Zain Johnson May 13, 2022 10:37pm Living Will Yes May 13 10:37pm Power of Ranch Rider Yes May 13 022 10:37pm Documents on File Type Date 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 Advance Directive(s) 05/24/2022 7:11 PM Advance Directive(s) 07/14/2019 4:21 PM Latest Code Status on File Code Status Date Activated Date Inactivated Comments DNR-CC 05/23/2022 4:27 PM 06/27/2022 1:51 PM DNR-CCA 05/18/2022 12:15 PM 05/21/2022 5:47 PM Advance Directive Response Recorded Date/ Time Living Will Yes May 13 10:37pm Power of Ranch Rider Yes May 13 10:37pm Latest Code Status [...] Melly Michele MD [address] [place] [address] Mr Imaging Referral ID Status Reason Start Date Expiration Date Visits Requested Visits Authorized [id number] Authorized Auto-Generat ed Referral 02/02/2022 03/04/2023 1 1 Specialty Diagnoses / Procedures Referred By Winston foster Referred To Contact MR IMAGING Diagnoses Enterocutaneous fistula S/P ileal conduit (HCC) History of bladder cancer Incisional hernia, without obstruction or gangrene Procedures MRI ABDOMEN WO/W IVCON MRI ABDOMEN W/O & W/CONTRAST MATERIAL Melly Michele MD [address] [place] [address] Mr Imaging Referral ID Status Reason Start Date Expiration Date Visits Requested Visits Authorized [id number] Pending Review Auto-Generat ed Referral 02/02/2022 03/04/2023 1 1 Specialty Diagnoses / Procedures Referred By Contac t Referred To Contact Urology Diagnoses Enterocutaneous fistula Procedures CONSULT TO UROLOGY OFFICE/OUTPATIENT [facility] 60-74 MINUTES John Mullins MD [address] [facility] [address] [id number] Referral ID Status Reason Start Date Expiration Date Visits Requested Visits Authorized [id number] Authorized PCP Requested Referral 03/13/2022 03/13/2023 1 1 Specialty Diagnoses / Procedures Referred By Contac t Referred To Contact Pulmonary Disease Diagnoses Malignant neoplasm of urinary bladder, unspecified site (HCC) Lung nodule Procedures CONSULT TO LUNG NODULE CLINIC OFFICE/OUTPATIENT [facility] 60-74 MINUTES Jose Deluna MD [address], [address] [place] [id number] Referral ID Status Reason Start Date Expiration Date Visits Requested Visits Authorized [id number] Authorized PCP Requested Referral 03/24/2022 03/24/2023 1 1 Specialty Diagnoses / Procedures Referred By Contac t Referred To Contact CT IMAGING Diagnoses Lung nodule Pre-op testing SOB (shortness of breath) Procedures CT CHEST W IVCON DIAGNOSTIC COMPUTED TOMOGRAPHY THORAX W/CONTRAST Afia Cisneros MD, PhD [address] [facility] [address] [place] [address] Ct Imaging Referral ID Status Reason Start Date Expiration Date V isits Requested Visits Authorized [id number] Closed Auto-Generate d Referral 09/07/2022 10/04/2023 1 1 Specialty Diagnoses / Procedures Referred By Contac t Referred To Contact CT IMAGING Diagnoses Malignant neoplasm of unspecified part of unspecified bronchus or lung (HCC) Procedures CT CHEST WO IVCON DIAGNOSTIC COMPUTED TOMOGRAPHY THORAX W/O Radha Gee, ECONOMICS ANALYST.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 [address] [place] [address] Ct Imaging Referral ID Status Reason Start Date Expiration Date Visits Requested Visits Authorized [id number] Authorized Auto-Generat ed Referral 12/05/2022 01/04/2024 1 1 Specialty Diagnoses / Procedures Referred By Contac t Referred To Contact CT IMAGING Diagnoses Malignant neoplasm of unspecified part of unspecified bronchus or lung (HCC) Procedures CT CHEST WO IVCON DIAGNOSTIC COMPUTED TOMOGRAPHY THORAX W/O CNTRST Radha Beal, ECONOMICS ANALYST.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 [address] [place] [address] Ct Imaging [facility]95 Referral ID Status Reason Start Date Expiration Date V isits Requested Visits Authorized [id number] Closed Auto-Generate d Referral 12/05/2022 01/04/2024 1 1 Referral ID Status Reason Start Date Expiration Date V isits Requested Visits Authorized [id number] Closed Auto-Generate d Referral 10/11/2023 11/09/2024 1 1 Referral ID Status Reason Start Date Expiration Date Visits Requested Visits Authorized [id number] New Request Auto-Generat ed Referral 04/15/2024 05/15/2025 1 1 Referral ID Status Reason Start Date Expiration Date V isits Requested Visits Authorized [id number] Closed Auto-Generate d Referral 04/15/2024 05/15/2025 1 1 Referral ID Status Reason Start Date Expiration Date Visits Requested Visits Authorized [id number] New Request Auto-Generat ed Referral 10/16/2024 11/15/2025 1 1 Additional Source Comments (unrecognized sect ion and content) No Status Records FoundNo Status Records FoundNo Status Records FoundNo Status Records FoundNo Status Records FoundNo Status Records FoundNo Status Records FoundNo Status Records Found INFORMATION SOURCE (unrecogn ized section and content) DATE CREATED AUTHOR 03/25/2018 [facility] DATE CREATED AUTHOR AUTHOR'S ORGANIZ ATION 03/25/2018 [facility] DATE CREATED AUTHOR AUTHOR'S ORGANIZ ATION 09/07/2018 [facility] ([place]) DATE CREATED AUTHOR AUTHOR'S ORGANIZ ATION 09/27/2018 [facility] DATE CREATED AUTHOR AUTHOR'S ORGANIZ ATION 06/30/2019 [facility] [place] DATE CREATED AUTHOR AUTHOR'S ORGANIZ ATION 02/03/2022 [facility] DATE CREATED AUTHOR AUTHOR'S ORGANIZ ATION 10/18/2024 [facility] DATE CREATED AUTHOR AUTHOR'S ORGANIZ ATION 11/14/2024 [facility] Goals (unrecognized section and content) [...] or prosecute any alcohol or drug abuse patient.[facility]onIn the event this information is protected by the Federal Confidentiality of Alcohol and Drug Abuse Patient Records regulations: The Federal rules restrict any use of the information to criminally investigate or prosecute any alcohol or drug abuse patient.[facility]onIn the event this information is protected by the Federal Confidentiality of Alcohol and Drug Abuse Patient Records regulations: The Federal rules restrict any use of the information to criminally investigate or prosecute any alcohol or drug abuse patient.[facility]onIn the event this information is protected by the Federal Confidentiality of Alcohol and Drug Abuse Patient Records regulations: The Federal rules restrict any use of the information to criminally investigate or prosecute any alcohol or drug abuse patient.[facility]onIn the event this information is protected by the Federal Confidentiality of Alcohol and Drug Abuse Patient Records regulations: The Federal rules restrict any use of the information to criminally investigate or prosecute any alcohol or drug abuse patient.[facility]onIn the event this information is protected by the Federal Confidentiality of Alcohol and Drug Abuse Patient Records regulations: The Federal rules restrict any use of the information to criminally investigate or prosecute any alcohol or drug abuse patient.[facility]onIn the event this information is protected by the Federal Confidentiality of Alcohol and Drug Abuse Patient Records regulations: The Federal rules restrict any use of the information to criminally investigate or prosecute any alcohol or drug abuse patient.[facility]onIn the event this information is protected by the Federal Confidentiality of Alcohol and Drug Abuse Patient Records regulations: The Federal rules restrict any use of the information to criminally investigate or prosecute any alcohol or drug abuse patient.[facility]onIn the event this information is protected by the Federal Confidentiality of Alcohol and Drug Abuse Patient Records regulations: The Federal rules restrict any use of the information to criminally investigate or prosecute any alcohol or drug abuse patient.[facility]onIn the event this information is protected by the Federal Confidentiality of Alcohol and Drug Abuse Patient Records regulations: The Federal rules restrict any use of the information to criminally investigate or prosecute any alcohol or drug abuse patient.[facility]onIn the event this information is protected by the Federal Confidentiality of Alcohol and Drug Abuse Patient Records regulations: The Federal rules restrict any use of the information to criminally investigate or prosecute any alcohol or drug abuse patient.[facility]onIn the event this information is protected by the Federal Confidentiality of Alcohol and Drug Abuse Patient Records regulations: The Federal rules restrict any use of the information to criminally investigate or prosecute any alcohol or drug abuse patient.[facility]onIn the event this information is protected by the Federal Confidentiality of Alcohol and Drug Abuse Patient Records regulations: The Federal rules restrict any use of the information to criminally investigate or prosecute any alcohol or drug abuse patient.[facility]onIn the event this information is protected by the Federal Confidentiality of Alcohol and Drug Abuse Patient Records regulations: The Federal rules restrict any use of the information to criminally investigate or prosecute any alcohol or drug abuse patient.[facility]onIn the event this information is protected by the Federal Confidentiality of Alcohol and Drug Abuse Patient Records regulations: The Federal rules restrict any use of the information to criminally investigate or prosecute any alcohol or drug abuse patient.[facility]onIn the event this information is protected by the Federal Confidentiality of Alcohol and Drug Abuse Patient Records regulations: The Federal rules restrict any use of the information to criminally investigate or prosecute any alcohol or drug abuse patient.[facility]onIn the event this information is protected by the Federal Confidentiality of Alcohol and Drug Abuse Patient Records regulations: The Federal rules restrict any use of the information to criminally investigate or prosecute any alcohol or drug abuse patient.[facility]onIn the event this information is protected by the Federal Confidentiality of Alcohol and Drug Abuse Patient Records regulations: The Federal rules restrict any use of the information to criminally investigate or prosecute any alcohol or drug abuse patient.[facility]onIn the event this information is protected by the Federal Confidentiality of Alcohol and Drug Abuse Patient Records regulations: The Federal rules restrict any use of the information to criminally investigate or prosecute any alcohol or drug abuse patient.[facility]onIn the event this information is protected by the Federal Confidentiality of Alcohol and Drug Abuse Patient Records regulations: The Federal rules restrict any use of the information to criminally investigate or prosecute any alcohol or drug abuse patient.[facility]onIn the event this information is protected by the Federal Confidentiality of Alcohol and Drug Abuse Patient Records regulations: The Federal rules restrict any use of the information to criminally investigate or prosecute any alcohol or drug abuse patient.[facility]onIn the event this information is protected by the Federal Confidentiality of Alcohol and Drug Abuse Patient Records regulations: The Federal rules restrict any use of the information to criminally investigate or prosecute any alcohol or drug abuse patient.[facility]onIn the event this information is protected by the Federal Confidentiality of Alcohol and Drug Abuse Patient Records regulations: The Federal rules restrict any use of the information to criminally investigate or prosecute any alcohol or drug abuse patient.[facility]onIn the event this information is protected by the Federal Confidentiality of Alcohol and Drug Abuse Patient Records regulations: The Federal rules restrict any use of the information to criminally investigate or prosecute any alcohol or drug abuse patient.[facility]onIn the event this information is protected by the Federal Confidentiality of Alcohol and Drug Abuse Patient Records regulations: The Federal rules restrict any use of the information to criminally investigate or prosecute any alcohol or drug abuse patient.[facility]onIn the event this information is protected by the Federal Confidentiality of Alcohol and Drug Abuse Patient Records regulations: The Federal rules restrict any use of the information to criminally investigate or prosecute any alcohol or drug abuse patient.[facility]onIn the event this information is protected by the Federal Confidentiality of Alcohol and Drug Abuse Patient Records regulations: The Federal rules restrict any use of the information to criminally investigate or prosecute any alcohol or drug abuse patient.[facility]onIn the event this information is protected by the Federal Confidentiality of Alcohol and Drug Abuse Patient Records regulations: The Federal rules restrict any use of the information to criminally investigate or prosecute any alcohol or drug abuse patient.[facility]onIn the event this information is protected by the Federal Confidentiality of Alcohol and Drug Abuse Patient Records regulations: The Federal rules restrict any use of the information to criminally investigate or prosecute any alcohol or drug abuse patient.[facility]onIn the event this information is protected by the Federal Confidentiality of Alcohol and Drug Abuse Patient Records regulations: The Federal rules restrict any use of the information to criminally investigate or prosecute any alcohol or drug abuse patient.[facility]onIn the event this information is protected by the Federal Confidentiality of Alcohol and Drug Abuse Patient Records regulations: The Federal rules restrict any use of the information to criminally investigate or prosecute any alcohol or drug abuse patient.[facility]onIn the event this information is protected by the Federal Confidentiality of Alcohol and Drug Abuse Patient Records regulations: The Federal rules restrict any use of the information to criminally investigate or prosecute any alcohol or drug abuse patient.[facility]onIn the event this information is protected by the Federal Confidentiality of Alcohol and Drug Abuse Patient Records regulations: The Federal rules restrict any use of the information to criminally investigate or prosecute any alcohol or drug abuse patient.[facility]onIn the event this information is protected by the Federal Confidentiality of Alcohol and Drug Abuse Patient Records regulations: The Federal rules restrict any use of the information to criminally investigate or prosecute any alcohol or drug abuse patient.[facility]onIn the event this information is protected by the Federal Confidentiality of Alcohol and Drug Abuse Patient Records regulations: The Federal rules restrict any use of the information to criminally investigate or prosecute any alcohol or drug abuse patient.[facility]onIn the event this information is protected by the Federal Confidentiality of Alcohol and Drug Abuse Patient Records regulations: The Federal rules restrict any use of the information to criminally investigate or prosecute any alcohol or drug abuse patient.[facility]onIn the event this information is protected by the Federal Confidentiality of Alcohol and Drug Abuse Patient Records regulations: The Federal rules restrict any use of the information to criminally investigate or prosecute any alcohol or drug abuse patient.[facility]onIn the event this information is protected by the Federal Confidentiality of Alcohol and Drug Abuse Patient Records regulations: The Federal rules restrict any use of the information to criminally investigate or prosecute any alcohol or drug abuse patient.[facility]onIn the event this information is protected by the Federal Confidentiality of Alcohol and Drug Abuse Patient Records regulations: The Federal rules restrict any use of the information to criminally investigate or prosecute any alcohol or drug abuse patient.[facility]onIn the event this information is protected by the Federal Confidentiality of Alcohol and Drug Abuse Patient Records regulations: The Federal rules restrict any use of the information to criminally investigate or prosecute any alcohol or drug abuse patient.[facility]onIn the event this information is protected by the Federal Confidentiality of Alcohol and Drug Abuse Patient Records regulations: The Federal rules restrict any use of the information to criminally investigate or prosecute any alcohol or drug abuse patient.[facility]onIn the event this information is protected by the Federal Confidentiality of Alcohol and Drug Abuse Patient Records regulations: The Federal rules restrict any use of the information to criminally investigate or prosecute any alcohol or drug abuse patient.[facility]onIn the event this information is protected by the Federal Confidentiality of Alcohol and Drug Abuse Patient Records regulations: The Federal rules restrict any use of the information to criminally investigate or prosecute any alcohol or drug abuse patient.[facility]onIn the event this information is protected by the Federal Confidentiality of Alcohol and Drug Abuse Patient Records regulations: The Federal rules restrict any use of the information to criminally investigate or prosecute any alcohol or drug abuse patient.[facility]onIn the event this information is protected by the Federal Confidentiality of Alcohol and Drug Abuse Patient Records regulations: The Federal rules restrict any use of the information to criminally investigate or prosecute any alcohol or drug abuse patient.[facility]onIn the event this information is protected by the Federal Confidentiality of Alcohol and Drug Abuse Patient Records regulations: The Federal rules restrict any use of the information to criminally investigate or prosecute any alcohol or drug abuse patient.[facility]onIn the event this information is protected by the Federal Confidentiality of Alcohol and Drug Abuse Patient Records regulations: The Federal rules restrict any use of the information to criminally investigate or prosecute any alcohol or drug abuse patient.[facility]onIn the event this information is protected by the Federal Confidentiality of Alcohol and Drug Abuse Patient Records regulations: The Federal rules restrict any use of the information to criminally investigate or prosecute any alcohol or drug abuse patient.[facility]onIn the event this information is protected by the Federal Confidentiality of Alcohol and Drug Abuse Patient Records regulations: The Federal rules restrict any use of the information to criminally investigate or prosecute any alcohol or drug abuse patient.[facility]onIn the event this information is protected by the Federal Confidentiality of Alcohol and Drug Abuse Patient Records regulations: The Federal rules restrict any use of the information to criminally investigate or prosecute any alcohol or drug abuse patient.[facility]onIn the event this information is protected by the Federal Confidentiality of Alcohol and Drug Abuse Patient Records regulations: The Federal rules restrict any use of the information to criminally investigate or prosecute any alcohol or drug abuse patient.[facility]onIn the event this information is protected by the Federal Confidentiality of Alcohol and Drug Abuse Patient Records regulations: The Federal rules restrict any use of the information to criminally investigate or prosecute any alcohol or drug abuse patient.[facility]onIn the event this information is protected by the Federal Confidentiality of Alcohol and Drug Abuse Patient Records regulations: The Federal rules restrict any use of the information to criminally investigate or prosecute any alcohol or drug abuse patient.[facility]onIn the event this information is protected by the Federal Confidentiality of Alcohol and Drug Abuse Patient Records regulations: The Federal rules restrict any use of the information to criminally investigate or prosecute any alcohol or drug abuse patient.[facility] Reason for Visit (unrecogniz ed section and content) Reason Comments Consult Inguinal Hernia Reason Comments Results - Ct CT scan from [facility] Reason Comments Patient Update Reason Comments [...] HIGH MDM 60-74 MINUTES John Mullins MD [address] [place] [place] [id number] Referral ID Status Reason Start Date Expiration Date V isits Requested Visits Authorized [id number] Closed PCP Requested Referral 03/13/2022 03/13/2023 1 1 Reason Comments Patient Update Reason Comments Follow Up Reason Comments Pre-Op Visit Specialty Diagnoses / Procedures Referred By Winston t Referred To Contact ANESTHESIOLOGY Diagnoses PREOP Procedures COMPLETE PACC John Mullins MD [address] [id number] 4, Pacc [address] [facility] [place] [address] Referral ID Status Reason Start Date Expiration Date V isits Requested Visits Authorized [id number] Pending Review 04/18/2022 07/17/2022 5 5 Reason Comments Received Outside Medical Records Coumadi n Reason Comments Care Coordination Reason Comments Follow Up Phone Call All Clear Reason Comments Supervisor Patching - Other Reason Comments Home Care Confirmation [...] (DLCO) DIFFUSING CAPACITY Afia Cisneros MD, PhD [address] [employer] [facility] [address] [address] Referral ID Status Reason Start Date Expiration Date V isits Requested Visits Authorized [id number] Closed Auto-Generate d Referral 08/30/2022 09/29/2023 1 1 Specialty Diagnoses / Procedures Referred By Contac t Referred To Contact [facility] Diagnoses Lung nodule Procedures SIX MINUTE WALK CARDIOPULMONARY EXERCISE STRESS Afia Cisneros MD, PhD [address] [employer] [address] [address] [place] [id number] Referral ID Status Reason Start Date Expiration Date V isits Requested Visits Authorized [id number] Closed Auto-Generate d Referral 08/28/2022 09/27/2023 1 1 Specialty Diagnoses / Procedures Referred By Contac t Referred To Contact [facility] Diagnoses Lung nodule Procedures SPIROMETRY BASELINE ONLY SPMTRY W/VC EXPIRATORY MEERA W/WO MXML VOL VNTJ Afia Cisneros MD, PhD [address] [employer] [address] [address] Referral ID Status Reason Start Date Expiration Date V isits Requested Visits Authorized [id number] Closed Auto-Generate d Referral 08/30/2022 09/29/2023 1 1 Reason Comments Consult Reason Comments Radiology NM Specialty Diagnoses / Procedures Referred By Winston t Referred To Contact MOLECULAR & FUNCTIONAL IMAGING Diagnoses Lung nodule Pre-op testing Encounter for other preprocedural examination SOB (shortness of breath) Procedures NM CARDIAC PERF STRESS/EXERCISE MYOCARDIAL SPECT MULTIPLE STUDIES Afia Cisneros MD, PhD [address] [employer] [address] [address] Molecular & Functional Imaging [address] [place] [address] Referral ID Status Reason Start Date Expiration Date V isits Requested Visits Authorized [id number] Closed Auto-Generate d Referral 09/07/2022 10/04/2023 [address] Specialty Diagnoses / Procedures Referred By Contac t Referred To Contact CT IMAGING Diagnoses Lung nodule Pre-op testing SOB (shortness of breath) Procedures CT CHEST W IVCON DIAGNOSTIC COMPUTED TOMOGRAPHY THORAX W/CONTRAST Afia Cisneros MD, PhD [address] [facility] [address] [place] [address] Ct Imaging Referral ID Status Reason Start Date Expiration Date V isits Requested Visits Authorized [id number] Closed Auto-Generate d Referral 09/07/2022 10/04/2023 1 [...] DIAGNOSTIC COMPUTED TOMOGRAPHY THORAX W/O Radha Gee, ECONOMICS ANALYST.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 [id number] Imaging [place] [address] Referral ID Status Reason Start Date Expiration Date V isits Requested Visits Authorized [id number] Closed Auto-Generate d Referral 12/05/2022 01/04/2024 1 1 Referral ID Status Reason Start Date Expiration Date V isits Requested Visits Authorized [id number] Closed Auto-Generate d Referral 10/11/2023 11/09/2024 1 1 Reason Comments Malignant neoplasm of unspecified part o f unspecified bronc Referral ID Status Reason Start Date Expiration Date V isits Requested Visits Authorized [id number] Closed Auto-Generate d Referral 04/15/2024 05/15/2025 1 1 Care Teams (unrecognized sec tion and content) Steam Station Supervisor Relationship Specialty Start Date End Date Seng Carlisle, [address] [facility] [address] [place] [address] PCP - General Family Practice 10/21/20 [employer] Supervisor Relationship Specialty Start Date End Date Orestes Seng Coleman, [address] [facility] [address] [place] [address] PCP - General Family Practice 10/21/20 Steam [employer] Supervisor Relationship Specialty Start Date End Date Seng Carlisle Jared, [address] [facility] [address] [place] [address] PCP - General Family Practice 10/21/20 Steam [employer] Supervisor Relationship Specialty Start Date End Date Seng Carlisle JaredDO [address] [facility] [address] [place] [address] PCP - General Family Practice 10/21/20 Arlene Moreland PA-C [address] [place] [address] Referring Colon and Rectal Surgery 02/08/22 Arlene Moreland PA-C [address] [place] [address] Home Care Physician Colon and Rectal Surgery 02/08/22 Steam Station Supervisor Relationship Specialty Start Date End Date Arlene Moreland PA-C [address] [place] [address] Referring Colon and Rectal Surgery 02/08/22 Arlene Moreland PA-C [address] [place] [address] Home Care Physician Colon and Rectal Surgery 02/08/22 Og Goodwin MD [address] [place], [place] [address] [phone] Staff Physician Family Practice 02/09/22 Ayo Sorenson RN [address] [place] [address] Yarn Spooler Post Acute Care 02/09/22 Steam Station Supervisor Relationship Specialty Start Date End Date Arlene Moreland PA-C [address] [place] [address] Referring Colon and Rectal Surgery 02/08/22 Arlene Moreland PA-C [address] [place] [address] Home Care Physician Colon and Rectal Surgery 02/08/22 Og Goodwin MD [address] [place] [address] Primary Staff Physician Family Practice 02/09/22 Ayo Sorenson RN [address] [place] [address] Yarn Spooler Post Acute Care 02/09/22 Steam Station Supervisor Relationship Specialty Start Date End Date Arlene Moreland PA-C [address] [place] [address] Referring Colon and Rectal Surgery 02/08/22 Arlene Moreland PA-C [address] [place] [address] Home Care Physician Colon and Rectal Surgery 02/08/22 Og Goodwin MD [address] [place] [address] Primary Staff Physician Family Practice 02/09/22 Ayo Sorenson RN [address] [place] [address] Yarn Spooler Post Acute Care 02/09/22 Steam Station Supervisor Relationship Specialty Start Date End Date Arlene Moreland PA-C [address] [place] [address] Referring Colon and Rectal Surgery 02/08/22 Arlene Moreland PA-C [address] [place] [address] Home Care Physician Colon and Rectal Surgery 02/08/22 Og Goodwin MD [address] [place], [place] 388071 Primary Staff Physician Family Practice 02/09/22 Ayo Sorenson RN [address] [place] [address] Yarn Spooler Post Acute Care 02/09/22 Steam Station Supervisor Relationship Specialty Start Date End Date Arlene Moreland PA-C [address] [place] [address] Referring Colon and Rectal Surgery 02/08/22 Arlene Moreland PA-C [address] [place] [address] Home Care Physician Colon and Rectal Surgery 02/08/22 Og Goodwin MD [address] [place] [address] Primary Staff Physician Family Practice 02/09/22 Ayo Sorenson RN [address] [place] [address] Yarn Spooler Post Acute Care 02/09/22 Steam Station Supervisor Relationship Specialty Start Date End Date Arlene Moreland PA-C [address] [place] [address] Referring Colon and Rectal Surgery 02/08/22 Arlene Moreland PA-C [address] [place] [address] Home Care Physician Colon and Rectal Surgery 02/08/22 Og Goodwin MD [address] [facility], [place] [address]391 Primary Staff Physician Family Practice 02/09/22 Ayo Sorenson RN [address] [place] [address] Yarn Spooler Post Acute Care 02/09/22 Steam Station Supervisor Relationship Specialty Start Date End Date Arlene Moreland PA-C [address] [place] [address] Referring Colon and Rectal Surgery 02/08/22 Arlene Moreland PA-C [address] [place] [address] Home Care Physician Colon and Rectal Surgery 02/08/22 Og Goodwin MD [address] [place] [address] Primary Staff Physician Family Practice 02/09/22 Ayo Sorenson RN [address] [place] [address] Yarn Spooler Post Acute Care 02/09/22 Steam Station Supervisor Relationship Specialty Start Date End Date Arlene Moreland PA-C [address] [place] [address] Referring Colon and Rectal Surgery 02/08/22 Arlene Moreland PA-C [address] [place] [address] Home Care Physician Colon and Rectal Surgery 02/08/22 Og Goodwin MD [address] [facility] [place] [address] Primary Staff Physician Family Practice 02/09/22 Ayo Sorenson RN [address] [place] [address] Yarn Spooler Post Acute Care 02/09/22 Steam Station Supervisor Relationship Specialty Start Date End Date Arlene Moreland PA-C [address] [place] [address] Referring Colon and Rectal Surgery 02/08/22 Arlene Moreland PA-C [address] [place] [address] Home Care Physician Colon and Rectal Surgery 02/08/22 Og Goodwin MD [address] [place], [place] 033041 Primary Staff Physician Family Practice 02/09/22 Ayo Sorenson, LOREN [address] [place], [place] 0856931 Yarn Spooler Post Acute Care 02/09/22 Steam Station Supervisor Relationship Specialty Start Date End Date Terrell Evans [address] [address] PCP - General 04/17/22 Arlene Moreland PA-C [address] [place] [address] Referring Colon and Rectal Surgery 02/08/22 Arlene Moreland PA-C [address] [place] [address] Home Care Physician Colon and Rectal Surgery 02/08/22 Og Goodwin MD [address] [place], [place] 912061 Primary Staff Physician Family Practice 02/09/22 Ayo Sorenson, LOREN [address] [place], [place] 2669431 Yarn Spooler Post Acute Care 02/09/22 Steam Station Supervisor Relationship Specialty Start Date End Date Terrell Evans 128 [facility] [address] [place], [place] [id number] PCP - General 04/17/22 Arlene Moreland PA-C [address] [place] [address] Referring Colon and Rectal Surgery 02/08/22 Arlene Moreland PA-C [address] [place] [address] Home Care Physician Colon and Rectal Surgery 02/08/22 Og Goodwin MD [address] [place], [place] 590231 Primary Staff Physician Family Practice 02/09/22 Ayo Sorenson, LOREN [address] [place], [place] 5642631 Yarn Spooler Post Acute Care 02/09/22 Steam Station Supervisor Relationship Specialty Start Date End Date Terrell Evans [address] [address] PCP - General 04/17/22 Arlene Moreland PA-C [address] [place] [address] Referring Colon and Rectal Surgery 02/08/22 Arlene Moreland PA-C [address] [place] [address] Home Care Physician Colon and Rectal Surgery 02/08/22 Og Goodwin MD [address] [place], [place] [id number] Primary Staff Physician Family Practice 02/09/22 Ayo Sorenson RN [address] [place], [place] 3850031 Yarn Spooler Post Acute Care 02/09/22 Steam Station Supervisor Relationship Specialty Start Date End Date Terrell Evans 128 [facility] [address] [place] [address] PCP - General 04/17/22 Arlene Moreland PA-C [address] [place] [address] Referring Colon and Rectal Surgery 02/08/22 Arlene Morleand PA-C [address] [place] [address] Home Care Physician Colon and Rectal Surgery 02/08/22 Og Goodwin MD [address] [place] [address] Primary Staff Physician Family Practice 02/09/22 Ayo Sorenson, LOREN [address] [place] [address] [id number] Yarn Spooler Post Acute Care 02/09/22 Steam Station Supervisor Relationship Specialty Start Date End Date Terrell Evans 128 [facility] [address] [place] [address] PCP - General 04/17/22 Og Goodwin MD [address] [place] [address] Primary Staff Physician Family Practice 02/09/22 John Mullins MD [address] [place] [address] Referring Colon and Rectal Surgery 05/21/22 John Mullins MD [address] [place] [address] Home Care Physician Colon and Rectal Surgery 05/21/22 Ayo Sorenson, LOREN [address] [place] [address] Yarn Spooler Post Acute Care 05/21/22 Steam Station Supervisor Relationship Specialty Start Date End Date Terrell Evans 128 [facility] [address] [place] [address] PCP - General 04/17/22 Og Goodwin MD [address] [place] [address] Primary Staff Physician Family Practice 02/09/22 John Mullins MD [address] [place] [address] Referring Colon and Rectal Surgery 05/21/22 John Mullins MD [address] [place] [address] Home Care Physician Colon and Rectal Surgery 05/21/22 Ayo Sorenson, LOREN [address] [place], [place] 0008631 Yarn Spooler Post Acute Care 05/21/22 Steam Station Supervisor Relationship Specialty Start Date End Date Terrell Evans DO [address] [facility] [address] [place] [address] PCP - General Family Practice 05/30/22 Og Goodwin MD [address] [facility] [place] [address] Primary Staff Physician [facility] Practice 02/09/22 John Mullins MD [address] [place] [address] Referring Colon and Rectal Surgery 05/21/22 John Mullins MD [address] [place] [address] Home Care Physician Colon and Rectal Surgery 05/21/22 Ayo Sorenson RN [address] [place], [place] 7248831 Yarn Spooler Post Acute Care 05/21/22 Steam Station Supervisor Relationship Specialty Start Date End Date Terrell Evans DO [address] [facility] [address] [place] [address] PCP - General Family Practice 05/30/22 Og Goodwin MD [address] [facility] [place] [place] [address] Primary Staff Physician Family Practice 02/09/22 John Mullins MD [address] [place] [address] Referring Colon and Rectal Surgery 05/21/22 John Mullins MD [address] [place] [address] Home Care Physician Colon and Rectal Surgery 05/21/22 Ayo Sorenson, LOREN [address] [place] [address] Yarn Spooler Post Acute Care 05/21/22 Steam Station Supervisor Relationship Specialty Start Date End Date Terrell Evans DO [address] [facility] [address] [place] [address] PCP - General Family Practice 05/30/22 Og Goodwin MD [address] [facility] [place] [address] Primary Staff Physician [facility] Practice 02/09/22 John Mullins MD [address] [place] [address] Referring Colon and Rectal Surgery 05/21/22 John Mullins MD [address] [place] [address] Home Care Physician Colon and Rectal Surgery 05/21/22 Ayo Sorenson RN [address] [place] [address] Yarn Spooler Post Acute Care 05/21/22 Steam Station Supervisor Relationship Specialty Start Date End Date Terrell Evans DO [address] [facility] [address] [place] [address] PCP - General Family Practice 05/30/22 Og Goodwin MD [address] [facility] [place] [address] Primary Staff Physician Family Practice 02/09/22 John Mullins MD [address] [place] [address] Referring Colon and Rectal Surgery 05/21/22 John Mullins MD [address] [place] [address] Home Care Physician Colon and Rectal Surgery 05/21/22 Ayo Sorenson, LOREN [address] [place] [address] Yarn Spooler Post Acute Care 05/21/22 Steam Station Supervisor Relationship Specialty Start Date End Date Terrell Evans DO [address] [facility] [address] [place] [address] PCP - General Family Practice 05/30/22 Og Goodwin MD [address] [place] [address] Primary Staff Physician [facility] Practice 02/09/22 John Mullins MD [address] [place] [address] Referring Colon and Rectal Surgery 05/21/22 John Mullins MD [address] [place] [address] Home Care Physician Colon and Rectal Surgery 05/21/22 Ayo Sorenson RN [address] [place] [address] Yarn Spooler Post Acute Care 05/21/22 Steam Station Supervisor Relationship Specialty Start Date End Date Terrell Evans DO [address] [facility] [address] [place] [address] PCP - General Family Practice 05/30/22 Og Goodwin MD [address] [facility] [place] [address] Primary Staff Physician Family Practice 02/09/22 John Mullins MD [address] [place] [address] Referring Colon and Rectal Surgery 05/21/22 John Mullins MD [address] [place] [address] Home Care Physician Colon and Rectal Surgery 05/21/22 Ayo Sorenson RN [address] [place] [address] Yarn Spooler Post Acute Care 05/21/22 Steam Station Supervisor Relationship Specialty Start Date End Date Terrell Evans DO [address] [facility] [address] [place] [address] PCP - General Family Practice 05/30/22 Og Goodwin MD [address] [place] [address] Primary Staff Physician Family Practice 02/09/22 John Mullins MD [address] [place] [address] Referring Colon and Rectal Surgery 05/21/22 John Mullins MD [address] [place] [address] Home Care Provider Colon and Rectal Surgery 05/21/22 Ayo Sorenson RN [address] [place] [address] Yarn Spooler Post Acute Care 05/21/22 Steam Station Supervisor Relationship Specialty Start Date End Date Terrell Evans [address] [facility] [address] [place] [address] PCP - General Family Practice 05/30/22 Og Goodwin MD [address] [facility] [place] [address] Primary Staff Physician Family Practice 02/09/22 John Mullins MD [address] [place] [address] Referring Colon and Rectal Surgery 05/21/22 John Mullins MD [address] [place] [address] Home Care Provider Colon and Rectal Surgery 05/21/22 Ayo Sorenson RN [address] [place] [address] Yarn Spooler Post Acute Care 05/21/22 Steam Station Supervisor Relationship Specialty Start Date End Date Terrell Evans DO [address] [facility] [address] [place] [address] PCP - General Family Medicine 05/30/22 Og Goodwin MD [address] [facility] [place] [address] Primary Staff Physician Family Medicine 02/09/22 John Mullins MD [address] [place] [address] Referring Colon and Rectal Surgery 05/21/22 John Mullins MD [address] [place] [address] Home Care Provider Colon and Rectal Surgery 05/21/22 Ayo Sorenson RN [address] [place] [address] Yarn Spooler Post Acute Care 05/21/22 Steam Station Supervisor Relationship Specialty Start Date End Date Terrell Evans, [address] [facility] [address] [place] [address] PCP - General Family Medicine 05/30/22 Og Goodwin MD [address] [facility] [place] [address] Primary Staff Physician Family Medicine 02/09/22 John Mullins MD [address] [place] [address] Referring Colon and Rectal Surgery 05/21/22 John Mullins MD [address] [place] [address] Home Care Provider Colon and Rectal Surgery 05/21/22 Ayo Sorenson RN [address] [place] [address] Yarn Spooler Post Acute Care 05/21/22 Steam Station Supervisor Relationship Specialty Start Date End Date Terrell Evans DO [address] [facility] [address] [place] [address] PCP - General Family Medicine 05/30/22 Og Goodwin MD [address] [facility] [place] [address] Primary Staff Physician Family Medicine 02/09/22 John Mullins MD [address] [place] [address] Referring Colon and Rectal Surgery 05/21/22 John Mullins MD [address] [place] [address] Home Care Provider Colon and Rectal Surgery 05/21/22 Ayo Sorenson RN [address] [place] [address] Yarn Spooler Post Acute Care 05/21/22 Steam Station Supervisor Relationship Specialty Start Date End Date Terrell Evans DO [address] [facility] [address] [place] [address] PCP - General Family Medicine 05/30/22 Og Goodwin MD [address] [facility] [place] [address] Primary Staff Physician Family Medicine 02/09/22 John Mullins MD [address] [place] [address] Referring Colon and Rectal Surgery 05/21/22 John Mullins MD [address] [facility] [place] [address] Home Care Provider Colon and Rectal Surgery 05/21/22 Ayo Sorenson RN [address] [place] [address] Yarn Spooler Post Acute Care 05/21/22 Steam Station Supervisor Relationship Specialty Start Date End Date Terrell Evans DO [address] [facility] [address] [place] [address] PCP - General Family Medicine 05/30/22 Og Goodwin MD [address] [facility] [place] [address] Primary Staff Physician Family Medicine 02/09/22 John Mullins MD [address] [facility] [place] [address] Referring Colon and Rectal Surgery 05/21/22 John Mullins MD [address] [facility] [place] [address] Home Care Provider Colon and Rectal Surgery 05/21/22 Ayo Sorenson RN [address] [place] [address] Yarn Spooler Post Acute Care 05/21/22 Steam Station Supervisor Relationship Specialty Start Date End Date Terrell Evans DO [address] [facility] [address] [place] [address] PCP - General Family Medicine 05/30/22 Og Goodwin MD [address] [facility] [place] [address] Primary Staff Physician Family Medicine 02/09/22 John Mullins MD [address] [place] [address] Referring Colon and Rectal Surgery 05/21/22 John Mullins MD [address] [place] [address] Home Care Provider Colon and Rectal Surgery 05/21/22 Ayo Sorenson RN [address] [place] [address] Yarn Spooler Post Acute Care 05/21/22 Steam Station Supervisor Relationship Specialty Start Date End Date Terrell Evans DO [address] [facility] [address] [place] [address] PCP - General Family Medicine 05/30/22 Og Goodwin MD [address] [facility] [place] [address] Primary Staff Physician Family Medicine 02/09/22 John Mullins MD [address] [place] [address] Referring Colon and Rectal Surgery 05/21/22 John Mullins MD [address] [place] [address] Home Care Provider Colon and Rectal Surgery 05/21/22 Ayo Sorenson RN [address] [place], [place] 7290931 Yarn Spooler Post Acute Care 05/21/22 Francisco Mesa V [address] [facility] [place] [address] Internal Medicine 08/27/22 Steam Station Supervisor Relationship Specialty Start Date End Date Terrell Evans DO [address] [facility] [address] [place] [address] PCP - General Family Medicine 05/30/22 Og Goodwin MD [address] [facility] [place] [address] Primary Staff Physician Family Medicine 02/09/22 John Mullins MD [address] [place] [address] Referring Colon and Rectal Surgery 05/21/22 John Mullins MD [address] [place] [address] Home Care Provider Colon and Rectal Surgery 05/21/22 Ayo Sorenson RN [address] [place] [address] Yarn Spooler Post Acute Care 05/21/22 Francisco Mesa V [address] [facility] [place] [address] Internal Medicine 08/27/22 Steam Station Supervisor Relationship Specialty Start Date End Date Terrell Evans DO [address] [facility] [address] [place] [address] PCP - General Family Medicine 05/30/22 Og Goodwin MD [address] [facility] [place] [address] Primary Staff Physician Family Medicine 02/09/22 John Mullins MD [address] [place] [address] Referring Colon and Rectal Surgery 05/21/22 John Mullins MD [address] [place] [address] Home Care Provider Colon and Rectal Surgery 05/21/22 Ayo Sorenson, LOREN [address] [place] [address] Yarn Spooler Post Acute Care 05/21/22 Francisco Mesa V [address] [facility] [phone] Internal Medicine 08/27/22 Steam Station Supervisor Relationship Specialty Start Date End Date Terrell Evans, [address] [facility] [address] [place] [address] PCP - General Family Medicine 05/30/22 Og Goodwin MD [address] [facility] [place] [address] Primary Staff Physician Family Medicine 02/09/22 John Mullins MD [address] [place] [address] Referring Colon and Rectal Surgery 05/21/22 John Mullins MD [address] [place] [address] Home Care Provider Colon and Rectal Surgery 05/21/22 Ayo Sorenson RN [address] [place], [place] 9462831 Yarn Spooler Post Acute Care 05/21/22 Francisco Mesa V [address] [facility] [place] [phone] Internal Medicine 08/27/22 Steam Station Supervisor Relationship Specialty Start Date End Date Terrell Evans, [address] [facility] [address] [place] [address] PCP - General Family Medicine 05/30/22 Og Goodwin MD [address] [facility] [place] [address] Primary Staff Physician Family Medicine 02/09/22 John Mullins MD [address] [place] [address] Referring Colon and Rectal Surgery 05/21/22 John Mullins MD [address] [place] [address] Home Care Provider Colon and Rectal Surgery 05/21/22 Ayo Sorenson RN [address] [place] [address] Yarn Spooler Post Acute Care 05/21/22 Francisco Mesa, Charis [address] [facility] [place] [address] Internal Medicine 08/27/22 Steam Station Supervisor Relationship Specialty Start Date End Date Terrell Evans DO [address] [facility] [address] [place] [address] PCP - General Family Medicine 05/30/22 Og Goodwin MD [address] [facility] [place] [address] Primary Staff Physician Family Medicine 02/09/22 John Mullins MD [address] [place] [address] Referring Colon and Rectal Surgery 05/21/22 John Mullins MD [address] [place] [address] Home Care Provider Colon and Rectal Surgery 05/21/22 Ayo Sorenson RN [address] [place], [place] 7947831 Yarn Spooler Post Acute Care 05/21/22 Francisco Mesa V [address] [facility] [place] [phone] Internal Medicine 08/27/22 Steam Station Supervisor Relationship Specialty Start Date End Date Terrell Evans DO [address] [facility] [address] [place], [place] [address] PCP - General Family Medicine 05/30/22 Og Goodwin MD [address] [facility] [place] [address] Primary Staff Physician Family Medicine 02/09/22 John Mullins MD [address] [place] [address] Referring Colon and Rectal Surgery 05/21/22 John Mullins MD [address] [place] [address] Home Care Provider Colon and Rectal Surgery 05/21/22 Ayo Sorenson RN [address] [place], [place] 7912731 Yarn Spooler Post Acute Care 05/21/22 Francisco Mesa V [address] [facility] [place] [phone] Internal Medicine 08/27/22 Team Status: Active Member Role Status Dates Dr. Asia Peres MD Family Provider Active Terrell Evans DO Primary Care Provider Active Team Status: Inactive Member Role Status Dates Terrell Evans DO Primary Care Provider Active Dr. Francisco Mesa MD Attending Provider, [facility] Provider Active Team Status: Inactive Member Role Status Dates Terrell Evans DO Primary Care Provi thomas, Attending Provider, Referring Provider Active Steam Station Supervisor Relationship Specialty Start Date End Date Terrell Evans DO [address] [facility] [address] [place] [address] PCP - General Family Medicine 05/30/22 Og Goodwin MD [address] [place] [address] Primary Staff Physician Family Medicine 02/09/22 John Mullins MD [address] [place] [address] Referring Colon and Rectal Surgery 05/21/22 John Mullins MD [address] [place] [address] Home Care Provider Colon and Rectal Surgery 05/21/22 Ayo Sorenson, LOREN [address] [place] [address] Yarn Spooler Post Acute Care 05/21/22 Francisco Mesa V [address] [place] [address] Internal Medicine 08/27/22 Steam Station Supervisor Relationship Specialty Start Date End Date Terrell Evans DO [address] [facility] [address] [place] [address] PCP - General Family Medicine 05/30/22 Og Goodwin MD [address] [place] [address] Primary Staff Physician Family Medicine 02/09/22 John Mullins MD [address] [place] [address] Referring Colon and Rectal Surgery 05/21/22 John Mullins MD [address] [place] [address] Home Care Provider Colon and Rectal Surgery 05/21/22 Ayo Sorenson RN [address] [place], [place] 1813831 Yarn Spooler Post Acute Care 05/21/22 Francisco Mesa V [address] [facility] [place] [phone] Internal Medicine 08/27/22 Steam Station Supervisor Relationship Specialty Start Date End Date Terrell Evans DO [address] [facility] [place], [place] [id number] PCP - General Family Medicine 05/30/22 Og Goodwin MD [address] [facility] [place], [place] [id number] Primary Staff Physician Family Medicine 02/09/22 John Mullins MD [address] [place] [address] Referring Colon and Rectal Surgery 05/21/22 John Mullins MD [address] [place] [address] Home Care Provider Colon and Rectal Surgery 05/21/22 Ayo Sorenson RN [address] [place], [place] 8450731 Yarn Spooler Post Acute Care 05/21/22 Francisco Mesa V [address] [place] [phone] Internal Medicine 08/27/22 Steam Station Supervisor Relationship Specialty Start Date End Date Terrell Evans DO [address] [place] [address] PCP - General Family Medicine 05/30/22 Og Goodwin MD [address] [place] [address] Primary Staff Physician Family Medicine 02/09/22 John Mullins MD [address] [place] [address] Referring Colon and Rectal Surgery 05/21/22 John Mullins MD [address] [place] [address] Home Care Provider Colon and Rectal Surgery 05/21/22 Ayo Sorenson RN [address] [place], [place] 9824431 Yarn Spooler Post Acute Care 05/21/22 Francisco Mesa V [address] [place] [place] [address] Internal Medicine 08/27/22 Steam Station Supervisor Relationship Specialty Start Date End Date Terrell Evans DO [address] [facility] [address] [place] [address] PCP - General Family Medicine 05/30/22 Og Goodwin MD [address] [place], [place] [address] Primary Staff Physician Family Medicine 02/09/22 John Mullins MD [address] [place] [address] Referring Colon and Rectal Surgery 05/21/22 John Mullins MD [address] [place] [address] Home Care Provider Colon and Rectal Surgery 05/21/22 Ayo Sorenson RN [address] [place], [place] 0247131 Yarn Spooler Post Acute Care 05/21/22 Francisco Mesa V [address] [facility] [place] [phone] Internal Medicine 08/27/22 Steam Station Supervisor Relationship Specialty Start Date End Date Terrell Evans DO [address] [facility] [facility] 105 [place], [place] [id number] PCP - General Family Medicine 05/30/22 Og Goodwin MD [address] [place], [place] [id number] Primary Staff Physician Family Medicine 02/09/22 John Mullins MD [address] [place] [address] Referring Colon and Rectal Surgery 05/21/22 John Mullins MD [address] [place] [address] Home Care Provider Colon and Rectal Surgery 05/21/22 Ayo Sorenson RN [address] [place], [place] 3698731 Yarn Spooler Post Acute Care 05/21/22 Francisco Mesa V [address] [facility] [place] [phone] Internal Medicine 08/27/22 Steam Station Supervisor Relationship Specialty Start Date End Date Terrell Evans DO 6801 [facility], [place] [id number] PCP - General Family Medicine 05/30/22 Og Goodwin MD [address] [facility] [facility] [place], [place] [id number] Primary Staff Physician Family Medicine 02/09/22 John Mullins MD [address] [place] [address] Referring Colon and Rectal Surgery 05/21/22 John Mullins MD [address] [place] [address] Home Care Provider Colon and Rectal Surgery 05/21/22 Ayo Sorenson, LOREN [address] [place] [address] Yarn Spooler Post Acute Care 05/21/22 Francisco Mesa V [address] [facility] [place] [id number] Internal Medicine 08/27/22 [employer] Supervisor Relationship Specialty Start Date End Date Terrell Evans DO [address] [place] [address] PCP - General Family Medicine 05/30/22 Og Goodwin MD [address] [facility] [place], [place] [id number] Primary Staff Physician Family Medicine 02/09/22 John Mullins MD [address] [place] [address] Referring Colon and Rectal Surgery 05/21/22 John Mullins MD [address] [place], [place] [id number] Home Care Provider Colon and Rectal Surgery 05/21/22 Ayo Sorenson RN [address] [place], [place] [id number] Yarn Spooler Post Acute Care 05/21/22 Francisco Mesa V [address] [place] [id number] Internal Medicine 08/27/22 FOR RECORDS PERTAINING TO [...] BE BASED ON THE PRIMARY CLINICAL RECORDS. [employer] provides no warranty or guarantee of the accuracy or completeness of information in this document.
[2025-09-05] MEDS: 0.9% Normal Saline (1000mL) 1,000 ML 100 ML IV (15:58)
[2025-09-05] MEDS: Warfarin (PBKC) 5 MG Tablet PO (16:13)
[2025-09-06 04:14] VITALS: BP 145/62; PULSE 74; RESP 16; TEMP 36.7; O2SAT 100
[2025-09-06] MEDS: 0.9% Normal Saline (1000mL) 1,000 ML 100 ML IV (04:16)
[2025-09-06 06:58] LABS: Hematocrit 37.5 % (40-54); Hemoglobin 12.3 g/dL (13.0-16.5); Immature Granulocytes Count 0.050 X10^3/uL (0.0-0.0); Mean Corp Hgb Conc 32.8 g/dL (32-36); Mean Corpuscular Volume 90.1 fL (80-94); Mean Platelet Vol. 10.9 fl (6.2-12.0); NRBC Flagged by Analyzer 0 % (0-5); Platelet Count 149 K/mm3 (150-450); RBC Distribution Width CV 14.2 % (11.6-14.6); RBC Distribution Width SD 47.1 fl (35.1-43.9); Red Blood Count 4.16 M/mm3 (4.6-6.2); White Blood Count 8.1 K/mm3 (4.4-11.0)
[2025-09-06 07:21] LABS: Anion Gap 11 (5-15); BUN 18 mg/dL (4-19); BUN/Creat Ratio 15.0 RATIO (10-20); Calcium,Total 8.7 mg/dL (7.6-11.0); Carbon Dioxide 23.1 mmol/L (21.0-32.0); Chloride 105 mmol/L (98-108); Estimated Creatinine Clearance 50.34 ml/min (50-250); Glucose 178 mg/dL (70-99); Potassium 3.4 mmol/L (3.3-5.1)
[2025-09-06 08:00] VITALS: BP 155/64; PULSE 62; RESP 18; TEMP 36.9; O2SAT 98
--- NOTE | 2025-09-06 10:01 | CASEMGMT ---
Noted PT and OT evals, no therapy recommended. Pt has colostomy and urostomy and indep in changing appliances. Pt typically does not use AD but has available to him if needed. No CM c/s.
[2025-09-06 10:18] VITALS: BP 155/64; PULSE 62
[2025-09-06] MEDS: Metoprolol(XL)Succ 25 MG Tablet PO (10:18)
--- NOTE | 2025-09-06 13:12 | DCINST_ITS ---
Discharge Instructions DC O2, CPAP, BIPAP needs Home O2 Discharge instructions: No Dressing / Incision Discharge Activity: Return to Normal Activity Dressing / Incision Call your doctor if you observe: Fever of 101 or Higher, Shortness of breath, Dizziness, Fainting spells, Swelling in the ankles, Chest pain and Increased palpitations (irregular heartbeat) Follow Up Care Test Results: Test results from this visit will be discussed in further detail at your follow- up appointment, if applicable. Discharge Plan Admission Admit Date/Time: 09/05/25 13:28 Attending Provider: John Shoemaker Primary Care Provider: Constanza Caceres Consulting Providers: Rosanne Hou Discharge Orders/Prescriptions Prescriptions: Continued multivitamin tablet 1 tab PO DAILY lisinopril 10 mg tablet 10 mg PO DAILY warfarin 5 mg tablet 5 mg PO SUMOTUTHFRSA ferrous sulfate 13 mg PO DAILY naproxen sodium [Aleve] 220 mg tablet 440 mg PO DAILY PRN (Reason: pain) atorvastatin 20 mg tablet 20 mg PO DAILY Qty: 90 3RF metoprolol succinate 25 mg tablet extended release 24 hr 25 mg PO DAILY Qty: 30 0RF Referrals / Follow Up: Constanza Caceres MD [Primary Care Provider, Family Practice] - Within 1 Week Disposition Disposition (needs filled in before D/C Order can be placed): Home, Self Care
--- NOTE | 2025-09-06 13:39 | PHA.DC.MR.R ---
Pharmacy [place] Med Reconciliation Pharmacy Service has performed discharge medication reconciliation for this patient. The patient's discharge medication list was reviewed for discrepancies and discrepancies were resolved. Medications at Discharge Home Medications multivitamin 1 tab PO DAILY GENERAL HEALTH 03/17/19 atorvastatin 20 mg tablet 20 mg PO DAILY HIGH CHOLESTROL #90 tabs 04/29/19 metoprolol succinate 25 mg tablet,extended release 24 hr 25 mg PO DAILY #30 tabs 02/20/21 ferrous sulfate 13 mg PO DAILY 09/05/25 lisinopril 10 mg tablet 10 mg PO DAILY 09/05/25 naproxen sodium 220 mg tablet (Aleve) 440 mg PO DAILY PRN pain 09/05/25 warfarin 5 mg tablet 5 mg PO SUMOTUTHFRSA 09/05/25
[2025-09-06 13:46] VITALS: BP 155/62; PULSE 73; RESP 18; TEMP 36.7; O2SAT 98
--- NOTE | 2025-09-06 14:49 | DS.PCM_ITS ---
Providers Date of Admission: 09/05/25 Primary Care Physician: Constanza Caceres MD Reason For Visit: INTRACTABLE BACK PAIN Diagnosis Discharge Diagnosis (1) Fall from slipping on wet surface: Status: Acute Code(s): W01.0XXA - Fall on same level from slipping, tripping and stumbling without subsequent striking against object, initial encounter (2) Intractable low back pain: Status: Acute Code(s): M54.59 - Other low back pain Medications at Discharge Home Medications multivitamin 1 tab PO DAILY GENERAL HEALTH 03/17/19 atorvastatin 20 mg tablet 20 mg PO DAILY HIGH CHOLESTROL #90 tabs 04/29/19 metoprolol succinate 25 mg tablet,extended release 24 hr 25 mg PO DAILY #30 tabs 02/20/21 ferrous sulfate 13 mg PO DAILY 09/05/25 lisinopril 10 mg tablet 10 mg PO DAILY 09/05/25 naproxen sodium 220 mg tablet (Aleve) 440 mg PO DAILY PRN pain 09/05/25 warfarin 5 mg tablet 5 mg PO SUMOTUTHFRSA 09/05/25 Hospital Course Operations None Procedures None Summary of Care Provided Minutes Spent on Discharge: 33 Hospital Course: Per HPI: RADHA JOHNSON, is a 80 M with a PMH as outlined who presents via the ED on 09/05/2025 with a complaint of back pain. HE sustained a mechanical fall 4 days ago and said he did not hit his head or pass out. He was able to get up after hte fall without difficulty and subsequently started having severe back pain. He denied any numbness or tingling, any urinary or fecal incontinence or any other symptoms. Review of systems is otherwise negative. He was unable to bear the pain and could not ambulate well. So he decided to come in to the ED. Vitals in the ED were BP of 180/66, SC of 63, RR of 13 and oxygen sats of 100% on room air. CBC showed hb of 13.1, wbc of 6.4 and platelets of 144. Chemistry showed sodium of 143, potassium of 3.7 and bicarb of 28. Cr is 1.14. Lumbar xray showed no acute osseous abnormalities. CXR showed bibasilar strand like opacities, likely atelectasis/scarring, with acute infection not excluded. He is being admitted to be managed for debility and weakness due to intractable back pain after mechanical fall. Hospital Course: 1. Intractable back pain after mechanical fall?80-year-old male fell at home and developed intractable back pain in the center of his low back. He denies any radiation of his pain and no numbness or tingling down either leg. No loss of bowel or bladder function. X-rays were unremarkable and CT scan does not demonstrate any fracture or loss of height. He says that he is 200% better and almost back to baseline so unlikely to have a slipped disc. He was not requiring any major doses of narcotics and his last dose of narcotics was yesterday. I discussed with him and his the possibility for discharge and he expressed understanding of the risks and benefits of going home and would like to go home today. I do recommend that he follow-up with his PCP as an outpatient and if he has recurrence of the pain or that the pain does not completely resolve by the time he sees his PCP he may benefit from outpatient physical therapy. 2. History of A-fib, hyperlipidemia, essential hypertension, iron deficiency anemia are all chronic medical conditions which complicate his care. His home medications were continued where appropriate Weight / BMI Weight Weight: 169 lb Body Mass Index (BMI) 25.7 ABG / Lab / Microbiology Data 09/06/25 06:20 09/06/25 06:20 Laboratory: Laboratory Results - last 24 hr 09/06/25 06:20: WBC 8.1, RBC 4.16 L, Hgb 12.3 L, Hct 37.5 L, MCV 90.1, MCH 29.6, MCHC 32.8, RDW Std Deviation 47.1 H, RDW Coeff of Carie 14.2, Plt Count 149 L, MPV 10.9, Immature Gran % (Auto) 0.600, Neut % (Auto) 88.0 H, Lymph % (Auto) 10.8 L, [place] % (Auto) 0.5, Eos % (Auto) 0.0, Baso % (Auto) 0.1, Absolute Neuts (auto) 7.1, Absolute Lymphs (auto) 0.88, Nucleated RBC % 0, Sodium 140, Potassium 3.4, Chloride 105, Carbon Dioxide 23.1, Anion Gap 11, BUN 18, Creatinine 1.17, Estim Creat Clear Calc 50.34, Est GFR (MDRD) Non-Af 64, BUN/Creatinine Ratio 15.0, G lucose 178 H, Calcium 8.7 D/C Instructions Call your doctor if you observe: Fever of 101 or Higher, Shortness of breath, Dizziness, Fainting spells, Swelling in the ankles, Chest pain and Increased palpitations (irregular heartbeat) DC O2, CPAP, BIPAP Needs Home O2 Discharge instructions: No Meaningful Use Info Meaningful Use Meaningful Use Diagnoses (Choose all that apply): None applicable Discharge Plan Admission Admit Date/Time: 09/05/25 13:28 Attending Provider: John Shoemaker Primary Care Provider: Constanza Caceres Consulting Providers: Rosanne Hou Discharge Orders/Prescriptions Prescriptions: Continued multivitamin tablet 1 tab PO DAILY lisinopril 10 mg tablet 10 mg PO DAILY warfarin 5 mg tablet 5 mg PO SUMOTUTHFRSA ferrous sulfate 13 mg PO DAILY naproxen sodium [Aleve] 220 mg tablet 440 mg PO DAILY PRN (Reason: pain) atorvastatin 20 mg tablet 20 mg PO DAILY Qty: 90 3RF metoprolol succinate 25 mg tablet extended release 24 hr 25 mg PO DAILY Qty: 30 0RF Referrals / Follow Up: Constanza Caceres MD [Primary Care Provider, Family Practice] - Within 1 Week Disposition Disposition (needs filled in before D/C Order can be placed): Home, Self Care Charges/Coding Visit Charges Inpatient E&M: 31016 Disch Hosp >30min
== END 2025-09-06 13:51 | disposition home or self-care (01) ==
LOC: ED 13:23 → MS3 13:35
PROVIDERS: Admitting Provider Student in an Organized Health Care Education/Training Program; Emergency Provider Emergency Medicine; PCP Family Medicine; Visit Provider Family Medicine
DX: M48.07 Spinal stenosis, lumbosacral region (principal); I48.0 Paroxysmal atrial fibrillation; I10 Essential (primary) hypertension; Z87.891 Personal history of nicotine dependence; Z79.01 Long term (current) use of anticoagulants; E78.5 Hyperlipidemia, unspecified; R91.8 Other nonspecific abnormal finding of lung field; I25.10 Atherosclerotic heart disease of native coronary artery without angina pectoris; Z79.899 Other long term (current) drug therapy; R79.1 Abnormal coagulation profile; W01.0XXA Fall on same level from slipping, tripping and stumbling without subsequent striking against object, initial encounter; Z66 Do not resuscitate; D50.9 Iron deficiency anemia, unspecified
CPT/HCPCS: 36415; 71045; 72100; 72131; 80048; 85025; 85610; 96361; 96374; 96375; 96376; 97161; 97166; 97802; 99221; 99285; A4216; G0378; J2405